=== PATIENT | female | born 1985 | race Caucasian/White ===

== ENCOUNTER 2016-07-25 12:44 | Inpatient (IN) | payer OTHER ==
[~2016-07-25] VITALS: Ht 162.6 cm; Wt 53.0 kg
[~2016-07-25 12:44] MED LIST: PHENYLEPH/NS 1000 MCG/10 ML SYR IV ONE; PROPOFOL 200 MG/20 ML AMP IV ONE
[2016-07-25] MEDS ORDERED: SODIUM CHLOR 0.9% 1000 ML INJ 1,000 ML IV ONE ×7 (13:15→19:00)
[2016-07-25] MEDS ORDERED: SODIUM CHLORIDE 0.9% FLUSH 5 ML FLUSH IVF PRN (13:15)
[2016-07-25 13:21] VITALS: BP 104/57; PULSE 130; RESP 20; TEMP 97.8; O2SAT 98
[2016-07-25 13:42] LABS: AUTOMATED NEUTROPHIL # 17.2 TH/MM3 (1.8-7.7); BASOPHIL % 0.2 % (0.0-2.0); HEMATOCRIT 52.3 % (35.0-46.0); HEMO FLAGS DIFF FINAL; LYMPH % 2.2 % (9.0-44.0); LYMPHOCYTE # 0.4 TH/MM3 (1.0-4.8); MEAN CELL VOLUME 108.6 FL (80.0-100.0); MEAN CORPUSCULAR HEMOGLOBIN 36.1 PG (27.0-34.0); MEAN CORPUSCULAR HGB CONC 33.2 % (32.0-36.0); MONO % 5.2 % (0.0-8.0); NEUT % 92.4 % (16.0-70.0); PLATELET COUNT 231 TH/MM3 (150-450); RED BLOOD COUNT 4.81 MIL/MM3 (4.00-5.30); RED CELL DISTRIBUTION WIDTH 13.2 % (11.6-17.2); WHITE BLOOD COUNT 18.7 TH/MM3 (4.0-11.0)
--- NOTE | 2016-07-25 13:56 | PD ---
HPI Chief Complaint: Alcohol/Drug Intoxication Time Seen by Provider: 12:57 Travel History International Travel<30 days: No Contact w/Intl Traveler<30days: No Traveled to known affect area: No History of Present Illness HPI Patient is a 30-year-old female brought to the emergency room by police for evaluation. As per police officers, patient was found in bed with her boyfriend who apparently overdosed on drugs last night. Patient does not have recollections of events that occurred last night or this morning. Reports that she feels numb to the right side of her body and is having difficulty with movement to the right of her body. Patient reports that "I just feel out of it. " Patient denies headache or dizziness. Patient denies chest pain or shortness of breath. Patient denies SI or HI. Patient admits to abusing cocaine last night - reports that "i snort my drugs" - denies IVDA. "I hate needles" PFSH Past Medical History Medical History: Denies Significant Hx ?: Not : 0 Past Surgical History Surgical History: No Previous Surgery Social History Alcohol Use: Yes (DAILY) Tobacco Use: Yes (PACK) Substance Use: Yes (MARIJUANA) Allergies-Medications (Allergen,Severity, Reaction): Coded Allergies: No Known Allergies (Unverified , 12/10/14) Reported Meds & Prescriptions Reported Meds & Active Scripts Active No Active Prescriptions or Reported Medications Review of Systems General / Constitutional: No: Fever Eyes: No: Visual changes HENT: No: Headaches Cardiovascular: Positive: Palpitations, Irregular Rhythm, Tachycardia, No: Chest Pain or Discomfort Respiratory: No: Shortness of Breath Gastrointestinal: No: Abdominal Pain Genitourinary: No: Dysuria Musculoskeletal: No: Pain Skin: No Rash Neurologic: Positive: Weakness Psychiatric: No: Depression Endocrine: No: Polydipsia Hematologic/Lymphatic: No: Easy Bruising Physical Exam Narrative GENERAL: pt with dry affect SKIN: Warm and dry. HEAD: Atraumatic. Normocephalic. EYES: Pupils equal and round. No scleral icterus. No injection or drainage. ENT: No nasal bleeding or discharge. Mucous membranes pink and moist. NECK: Trachea midline. No JVD. CARDIOVASCULAR: tachycardic. No murmur appreciated. RESPIRATORY: No accessory muscle use. Clear to auscultation. Breath sounds equal bilaterally. GASTROINTESTINAL: Abdomen soft, non-tender, nondistended. Hepatic and splenic margins not palpable. MUSCULOSKELETAL: No obvious deformities. No clubbing. No cyanosis. No edema. NEUROLOGICAL: Awake and alert. Motor grossly within normal limits. Normal speech. Pt with increased weakness to right arm/leg PSYCHIATRIC: Flat affect Data Data Last Documented VS Orders Complete Blood Count With Diff (07/25/16 13:04) Comprehensive Metabolic Panel (07/25/16 13:04) Urinalysis - C+S If Indicated (07/25/16 13:04) Drug Screen, Random Urine (07/25/16 13:04) Ed Urine Pregnancytest Poc (07/25/16 13:04) Electrocardiogram (07/25/16 13:04) Iv Access Insert/Monitor (07/25/16 13:04) Alcohol (Ethanol) (07/25/16 13:04) Salicylates (Aspirin) (07/25/16 13:04) Tylenol (Acetaminophen) (07/25/16 13:04) Psych Screen (07/25/16 13:04) Sodium Chloride 0.9% Flush (Ns Flush) (07/25/16 13:15) Sodium Chlor 0.9% 1000 Ml Inj (Ns 1000 M (07/25/16 13:15) Ckmb (Isoenzyme) Profile (07/25/16 13:37) Troponin I (07/25/16 13:37) Ct Brain W/O Iv Contrast(Rout) (07/25/16 ) Consult Cardiology (07/25/16 ) Lactic Acid Sepsis Protocol (07/25/16 14:11) Blood Culture (07/25/16 14:11) Chest, Single Ap (07/25/16 14:13) (Hub Use Only)Inp Phy Cons/Ref (07/25/16 ) Vancomycin Inj (Vancomycin Inj) (07/25/16 14:30) Piperacil-Tazo 3.375 Gm Premix (Zosyn 3. (07/25/16 14:30) Calcium Gluconate Inj (Calcium Gluconate (07/25/16 14:30) Insulin Human Regular Inj (Novolin R Inj (07/25/16 14:45) Dextrose 50% In Kirstie (Vial) Inj (D50w (Vi (07/25/16 14:30) Sodium Bicarbonate 8.4% Inj (Sodium Bica (07/25/16 14:30) Sodium Polysty Sulfate Liq (Kayexalate L (07/25/16 14:30) Urinary Catheter Insert/Apply (07/25/16 14:26) Sodium Bicarbonate 8.4% Inj (Sodium Bica (07/25/16 14:45) Electrocardiogram (07/25/16 ) Arterial Blood Gas (Abg) (07/25/16 ) Prothrombin Time / Inr (Pt) (07/25/16 15:16) Act Partial Throm Time (Ptt) (07/25/16 15:16) Acetylcysteine Inj (Acetadote Inj) (07/25/16 15:30) Acetylcysteine Inj (Acetadote Inj) (07/25/16 15:30) Acetylcysteine Inj (Acetadote Inj) (07/25/16 15:30) Calcium Gluconate Inj (Calcium Gluconate (07/25/16 15:45) Admit Order (Ed Use Only) (07/25/16 15:36) CKMB (07/25/16 13:30) CKMB% (07/25/16 13:30) Labs Laboratory Tests Test 07/25/16 13:30 White Blood Count 18.7 TH/MM3 Red Blood Count 4.81 MIL/MM3 Hemoglobin 17.4 GM/DL Hematocrit 52.3 % Mean Corpuscular Volume 108.6 FL Mean Corpuscular Hemoglobin 36.1 PG Mean Corpuscular Hemoglobin 33.2 % Concent Red Cell Distribution Width 13.2 % Platelet Count 231 TH/MM3 Mean Platelet Volume 8.1 FL Neutrophils (%) (Auto) 92.4 % Lymphocytes (%) (Auto) 2.2 % Monocytes (%) (Auto) 5.2 % Eosinophils (%) (Auto) 0.0 % Basophils (%) (Auto) 0.2 % Neutrophils # (Auto) 17.2 TH/MM3 Lymphocytes # (Auto) 0.4 TH/MM3 Monocytes # (Auto) 1.0 TH/MM3 Eosinophils # (Auto) 0.0 TH/MM3 Basophils # (Auto) 0.0 TH/MM3 CBC Comment DIFF FINAL Differential Comment MDM Medical Decision Making Medical Screen Exam Complete: Yes Emergency Medical Condition: Yes Interpretation(s) ekg: sinus tach at 122bpm, qt/qtc: 335/407, st seg elevation in V1 and V2 - Brugada syndrome? repeat ek; sinus tach at 127bpm, qt/qtc: 335/410, st seg elevation V1-V2 - Brugada syndrome? Vital Signs Date Time Temp Pulse Resp B/P Pulse Ox O2 Delivery O2 Flow Rate FiO2 07/25/16 13:26 130 20 98 Room Air 07/25/16 13:21 97.8 130 20 104/57 98 Laboratory Tests Test 07/25/16 13:30 White Blood Count 18.7 TH/MM3 (4.0-11.0) Red Blood Count 4.81 MIL/MM3 (4.00-5.30) Hemoglobin 17.4 GM/DL (11.6-15.3) Hematocrit 52.3 % (35.0-46.0) Mean Corpuscular Volume 108.6 FL (80.0-100.0) Mean Corpuscular Hemoglobin 36.1 PG (27.0-34.0) Mean Corpuscular Hemoglobin 33.2 % Concent (32.0-36.0) Red Cell Distribution Width 13.2 % (11.6-17.2) Platelet Count 231 TH/MM3 (150-450) Mean Platelet Volume 8.1 FL (7.0-11.0) Neutrophils (%) (Auto) 92.4 % (16.0-70.0) Lymphocytes (%) (Auto) 2.2 % (9.0-44.0) Monocytes (%) (Auto) 5.2 % (0.0-8.0) Eosinophils (%) (Auto) 0.0 % (0.0-4.0) Basophils (%) (Auto) 0.2 % (0.0-2.0) Neutrophils # (Auto) 17.2 TH/MM3 (1.8-7.7) Lymphocytes # (Auto) 0.4 TH/MM3 (1.0-4.8) Monocytes # (Auto) 1.0 TH/MM3 (0-0.9) Eosinophils # (Auto) 0.0 TH/MM3 (0-0.4) Basophils # (Auto) 0.0 TH/MM3 (0-0.2) CBC Comment DIFF FINAL Differential Comment Salicylates Level LESS THAN 1.7 MG/DL (2.8-20.0) Differential Diagnosis ACS versus Brugada syndrome versus drug overdose versus ICH versus SI Narrative Course 30 year old female who was brought to ER for medical clearance. pt was found in bed with her boyfriend this morning who overdosed on drugs and while in bed next to her. pt reports of numbness to right side of body. reports that she did snort some cocaine last night but doesn't remember what happened last night or this morning. pt with no chest pain/sob. Pt with flat affect, denies si/hi Reviewed case with Dr. Guzman with cardiology for concern for brugada syndrome - request serial ce Patient with 18,000 white count, patient initially hypotensive upon presentation to ER, patient responded well to IV fluids. Patient still tachycardic - patient with SIRS criteria. Patient will be acuna cultured and lactate ordered CBC WBC 18.7 Hemoglobin 17.4 Hematocrit 52.3 Platelets 231 BMP Sodium 140 Potassium 6.2 BUN 17 Creatinine 2.97 Carbon dioxide 11.2 Anion gap 21.8 Calcium: 6.6 Ast: 6641 ALT: 1419 Alk phos: 177 Patient with tranaminitis - possible acetaminophen overdose thought patient adamantly denies this, patient adamantly denies toxic ingestions, will start NAC as pt may have had possible acetinophen overdose Given patient's elevated white count with shift, hypertension when she first arrived to emergency room and tachycardia - patient was treated for sepsis with vancomycin and zosyn and has been pancultured CT of the head obtained to evaluate for further symptoms of numbness sensation to right side of body: CT of the head was negative Patient's creatinine elevated at 2.97 -- Sinclair catheter ordered for close I's and O's, pt given fluid bolus EKG also with st seg elevation in V1-V2 - most likely brugada syndrome, ce pending all this was reviewed with dr choi with icu who accepts pt to icu I received a call from lab as patient troponin is 6.24, I did call Dr. Choi, ICU attending, request that I notify Dr. Guzman and consider STEMI Call made to Dr Guzman, reviewed case again - would like pt to be treated medically at this time, he will see patient in consult Critical Care Narrative Aggregate critical care time was 60 minutes. Time to perform other separately billable procedures was not included in the critical care time. My time did not include minutes spent treating any other patients simultaneously or on activities that did not directly contribute to the patient's treatment. The services I provided to this patient were to treat and/or prevent clinically significant deterioration that could result in: , decompensation, deterioration I provided critical care services requiring my management, as noted below: Chart data review, documentation time, medication orders and management, vital sign assessments/reviewing monitor data, ordering and reviewing lab tests, ordering and interpreting/reviewing x-rays and diagnostic studies, care of the patient and discussion of the patient with the admitting physicians. Procedures EKG Prior to Arrival: No Sepsis Criteria SIRS Criteria (2 or more): Heart rate over 90, RR > 20 or PaCO2 < 32, WBC > 17361, < 4000 or > 10% bands Severe Sepsis (+one): Hypotension, Hypoperfusion, Lactate >2, Acute Oliguria/ Renal Failure Septic Shock Criteria: Lactic acid >=4 Multiple Organ Dysfunction Syn: Evidence -2 organs failing Criteria Outcome: Meets sepsis criteria Physician Communication Physician Communication case reviewed with dr guzman, request that CE be trended case reviewed with dr choi who accepts pt to service, pt seen in ER by Dr Choi, request ct of abd/pelvis without contrast and another bolus of ivf and xray of hip Diagnosis Primary Impression: Drug overdose Qualified Code: T50.904A - Drug overdose, undetermined intent, initial encounter Additional Impressions: Brugada syndrome Hypocalcemia SIRS (systemic inflammatory response syndrome) Hyperkalemia Transaminitis Renal failure possible acetaminophen overdose Acute urinary retention Admitting Information Admitting Physician Requests: Admit Scripts No Active Prescriptions or Reported Meds Nimco Jean Baptiste DO Jul 25, 2016 13:56 CBC WBC 18.7 Hemoglobin 17.4 Hematocrit 52.3 Platelets 231 BMP Sodium 140 Potassium 6.2 BUN 17 Creatinine 2.97 Carbon dioxide 11.2 Anion gap 21.8 Calcium: 6.6 Ast: 6641 ALT: 1419 Alk phos: 177 Patient with tranaminitis - possible acetaminophen overdose thought patient adamantly denies this, patient adamantly denies toxic ingestions, will start NAC as pt may have had possible acetinophen overdose Given patient's elevated white count with shift, hypertension when she first arrived to emergency room and tachycardia - patient was treated for sepsis with vancomycin and zosyn and has been pancultured CT of the head obtained to evaluate for further symptoms of numbness sensation to right side of body: CT of the head was negative Patient's creatinine elevated at 2.97 -- Sinclair catheter ordered for close I's and O's, pt given fluid bolus EKG also with st seg elevation in V1-V2 - most likely brugada syndrome, ce pending all this was reviewed with dr choi with icu who accepts pt to icu I received a call from lab as patient troponin is 6.24, I did call Dr. Choi, ICU attending, request that I notify Dr. Guzman and consider STEMI Call made to Dr Guzman, reviewed case again - would like pt to be treated medically at this time, he will see patient in consult Critical Care Narrative Aggregate critical care time was 60 minutes. Time to perform other separately billable procedures was not included in the critical care time. My time did not include minutes spent treating any other patients simultaneously or on activities that did not directly contribute to the patient's treatment. The services I provided to this patient were to treat and/or prevent clinically significant deterioration that could result in: , decompensation, deterioration I provided critical care services requiring my management, as noted below: Chart data review, documentation time, medication orders and management, vital sign assessments/reviewing monitor data, ordering and reviewing lab tests, ordering and interpreting/reviewing x-rays and diagnostic studies, care of the patient and discussion of the patient with the admitting physicians. Procedures EKG Prior to Arrival: No Sepsis Criteria SIRS Criteria (2 or more): Heart rate over 90, RR > 20 or PaCO2 < 32, WBC > 55470, < 4000 or > 10% bands Severe Sepsis (+one): Hypotension, Hypoperfusion, Lactate >2, Acute Oliguria/ Renal Failure Septic Shock Criteria: Lactic acid >=4 Multiple Organ Dysfunction Syn: Evidence -2 organs failing Criteria Outcome: Meets sepsis criteria Physician Communication Physician Communication case reviewed with dr guzman, request that CE be trended case reviewed with dr choi who accepts pt to service, pt seen in ER by Dr Choi, request ct of abd/pelvis without contrast and another bolus of ivf and xray of hip Diagnosis Primary Impression: Drug overdose Qualified Code: T50.904A - Drug overdose, undetermined intent, initial encounter Additional Impressions: Brugada syndrome Hypocalcemia SIRS (systemic inflammatory response syndrome) Hyperkalemia Transaminitis Renal failure possible acetaminophen overdose Acute urinary retention Admitting Information Admitting Physician Requests: Admit Scripts No Active Prescriptions or Reported Meds Nimco Jean Baptiste DO Jul 25, 2016 13:56
[2016-07-25 14:09] LABS: ALKALINE PHOSPHATASE 177 U/L (45-117); ALT (GPT) 1319 U/L (10-53); ANION GAP 28 MEQ/L (5-15); BICARBONATE 11.2 MEQ/L (21.0-32.0); BLOOD UREA NITROGEN 17 MG/DL (7-18); CHLORIDE 101 MEQ/L (98-107); GLOMERULAR FILTRATION RATE 19 ML/MIN (>89); SODIUM (NA) 140 MEQ/L (136-145); TOTAL BILIRUBIN ADULT 0.9 MG/DL (0.2-1.0)
[2016-07-25 14:20] LABS: AST (GOT) 6641 U/L (15-37); POTASSIUM 6.2 MEQ/L (3.5-5.1)
[2016-07-25 14:21] LABS: ACETAMINOPHEN LESS THAN 2.0 MCG/ML (10.0-30.0)
[2016-07-25 14:22] LABS: CALCIUM-PROTEIN CORRECTED 6.6 MG/DL (8.5-10.1)
[2016-07-25] MEDS ORDERED: DEXTROSE 50% IN WATER 50 ML VIAL(D50) IV PUSH ONE (14:30)
[2016-07-25] MEDS ORDERED: SODIUM POLYSTYRENE SULFONATE SUSP 15 GM/60 ML CUP PO ONE (14:30)
[2016-07-25] MEDS ORDERED: VANCOMYCIN INJ 900 MG in SODIUM CHLOR 0.9% 250 ML INJ 250 ML IV ONE (14:30)
[2016-07-25] MEDS ORDERED: PIPERACIL-TAZO 3.375 GM PREMIX 50 ML IV ONE (14:30)
[2016-07-25] MEDS ORDERED: CALCIUM GLUCONATE 10% 1 GM/10 ML VIAL SLOW IVP ONE ×2 (14:30→15:45)
[2016-07-25] MEDS ORDERED: SODIUM BICARBONATE 8.4% SOLN 50 MEQ/50 ML VIAL SLOW IVP ONE ×2 (14:30→14:45)
[2016-07-25] MEDS ORDERED: INSULIN HUMAN REGULAR 1,000 UNITS/10 ML VIAL IV PUSH ONE (14:45)
--- NOTE | 2016-07-25 14:58 | RADRPT ---
EXAM DATE/TIME: 07/25/2016 14:38 [facility] COMPARISON: No previous studies available for comparison. INDICATIONS : Right sided upper and lower extremity numbness today. RADIATION DOSE: 56.35 CTDIvol (mGy) MEDICAL HISTORY : None SURGICAL HISTORY : None. ENCOUNTER: Initial ACUITY: 1 day PAIN SCALE: 0/10 LOCATION: cranial TECHNIQUE: Multiple contiguous axial images were obtained of the head. Using automated exposure control and adj ustment of the mA and/or kV according to patient size, radiation dose was kept as low as reasonably a chievable to obtain optimal diagnostic quality images. FINDINGS: CEREBRUM: The ventricles are normal for age. No evidence of midline shift, mass lesion, hemorrhage or acute in farction. No extra-axial fluid collections are seen. POSTERIOR FOSSA: The cerebellum and brainstem are intact. The 4th ventricle is midline. The cerebellopontine angle i s unremarkable. EXTRACRANIAL: The visualized portion of the orbits is intact. SKULL: The calvaria is intact. No evidence of skull fracture. CONCLUSION: Negative noncontrast head CT. Glenroy Sheffield MD on July 25, 2016 at 14:56 Board Certified Radiologist. This report was verified electronically.
--- NOTE | 2016-07-25 15:02 | RADRPT ---
EXAM DATE/TIME: 07/25/2016 14:22 [facility] COMPARISON: No previous studies available for comparison. INDICATIONS : Chest pain. MEDICAL HISTORY : None. SURGICAL HISTORY : None. ENCOUNTER: Initial ACUITY: 1 day PAIN SCORE: 7/10 LOCATION: Bilateral chest FINDINGS: Single AP view of the chest. The lungs are clear. Cardiomediastinal silhouette within normal limits. No evidence of pleural effusion or pneumothorax. CONCLUSION: No acute cardiopulmonary disease identified. Bobby Reid MD on July 25, 2016 at 15:01 Board Certified Radiologist. This report was verified electronically.
[2016-07-25 15:22] LABS: BLOOD GAS BASE EXCESS -16.6 mmol/L (-2-2); BLOOD GAS CARBOXYHEMOGLOBIN 2.3 % (0-4); BLOOD GAS HCO3 11 mmol/L (22-26); BLOOD GAS METHEMOGLOBIN 1.8 % (0-2); BLOOD GAS O2 HGB SATURATION 91 % (90-100); BLOOD GAS OXYGEN CONTENT 20.3 Vol % (12.0-20.0); BLOOD GAS PCO2 33 mmHg (38-42); BLOOD GAS PO2 90 mmHG (61-120); BLOOD GAS TOTAL HGB 15.8 G/DL (12.0-16.0); CRITICAL VALUE YES; FIO2 21 %; OXYGEN DEVICE ROOM AIR; TEMP CORR TO 98.6
[2016-07-25 15:23] LABS: DRAW SITE RT RADIAL; NUMBER OF ARTERIAL PUNCTURES 1; STAT YES; ULNAR PULSE PRESENT
[2016-07-25] MEDS ORDERED: ACETYLCYSTEINE IV ONE ×6 (15:30)
[2016-07-25] MEDS ORDERED: DEXTROSE 5% IV ONE ×6 (15:30)
[2016-07-25] MEDS ORDERED: WATER IV ONE ×2 (15:30)
[2016-07-25] MEDS ORDERED: WATE IV ONE ×4 (15:30)
[2016-07-25] MEDS ORDERED: SODIUM CHLOR 0.9% 1000 ML INJ 1,000 ML IV SCH (16:05)
[2016-07-25 16:11] VITALS: BP 141/90; PULSE 122; RESP 18; O2SAT 100
[2016-07-25] MEDS ORDERED: CHLORHEXIDINE GLUCONATE 2 % 1 PACK (2 CLOTHS) TOP PRN (16:15)
[2016-07-25] MEDS ORDERED: MISCELLANEOUS NURSING INFORMATION XX SCH (16:15)
[2016-07-25] MEDS ORDERED: Vancomycin Consult Pharmacy 1 EA OTHER SCH (16:15)
[2016-07-25] MEDS ORDERED: RESP: ALBUTEROL 2.5 MG/IPRATROPIUM 0.5 MG NEB (PRN) INH (16:15)
[2016-07-25 16:16] LABS: APTT (PATIENT) 25.2 SEC (24.3-30.1); INTERNATIONAL NORMALIZED RATIO 1.4 RATIO; PROTHROMBIN TIME - PATIENT 15.4 SEC (9.8-11.6)
[2016-07-25 16:43] LABS: BACTERIA, URINE FEW /hpf; BLOOD, URINE MOD (NEG); GLUCOSE,URINE NEG (NEG); KETONE, URINE TRACE mg/dL (NEG); MUCUS URINE FEW /lpf (OCC); NITRITE,URINE NEG (NEG); SQUAMOUS EPITHELIAL CELL URINE 1 /hpf (0-5); URINE COLOR LIGHT-RED (YELLW/STRAW)
[2016-07-25 16:44] LABS: COMMENT (UR) CULTURE INDICATED; CULTURE IF INDICATED CULTURE INDICATED
[2016-07-25 16:48] LABS: AMPHETAMINE, URINE NEG (NEG); BARBITURATES, URINE NEG (NEG); COCAINE, URINE NEG (NEG)
[2016-07-25 16:54] LABS: LACTIC ACID GHOST NOT REPORTABLE
[2016-07-25 17:00] VITALS: BP 157/95; PULSE 123; RESP 25; TEMP 97.8
[2016-07-25] MEDS ORDERED: ENOXAPARIN SODIUM 30 MG/0.3 ML SYRINGE SQ SCH (17:00)
--- NOTE | 2016-07-25 17:09 | HHI.HP ---
[facility] Service Critical Care Medicine Primary Care Physician No Primary Care Physician Admission Diagnosis Sepsis, possible acetaminophen overdose, tranaminitis, renal failure Diagnosis: (1) Compartment syndrome of right lower extremity Diagnosis: Principal (2) Rhabdomyolysis Diagnosis: Principal (3) Severe sepsis Diagnosis: Principal (4) Altered mental status Diagnosis: Principal (5) Drug overdose Diagnosis: Principal (6) Elevated troponin Diagnosis: Principal (7) Severe metabolic acidosis Diagnosis: Principal (8) Lactic acidosis Diagnosis: Principal (9) Transaminitis Diagnosis: Principal (10) Hypocalcemia Diagnosis: Principal (11) Hyperkalemia Diagnosis: Principal (12) ST elevation Diagnosis: Principal (13) Acute kidney failure Diagnosis: Principal (14) Leukocytosis Diagnosis: Principal (15) Small right middle lobe consolidation Diagnosis: Principal (16) Hip hematoma, right Diagnosis: Principal Chief Complaint: Altered mentation Drug overdose Travel History International Travel<30 Days: No Contact w/Intl Traveler <30 Da: No Traveled to Known Affected Are: No Sepsis Criteria SIRS Criteria (2 or more): Heart rate over 90, RR > 20 or PaCO2 < 32, WBC > 63162, < 4000 or > 10% bands Sepsis Criteria (SIRS+source): Infect source susp/known Severe Sepsis (+one): Lactate >2 Septic Shock Criteria: Lactic acid >=4 Criteria Outcome: Meets severe sepsis criteria History of Present Illness Patient is a 30-year-old female who was brought to the emergency department by the police for medical clearance. Apparently patient was found in bed with her boyfriend this morning who overdosed on drugs. Patient's boyfriend was was found on the bed. In the ER patient reported numbness to the right side of the body and she admits to snorting some cocaine last night. Patient does not recall any of the events overnight or how she got to the hospital. Her drug screen was essentially negative but she admits to cocaine and heroine use. Patient is a very poor historian. EKG shows probable ST elevation V1 and V2 questionable Brugada syndrome. Initially was hypotensive but responded well to IV fluids. Received total 3 L of fluids but remained tachycardic. There were multiple lab abnormalities. Her CBC showed WBC 18.7 with 92% neutrophils. Her chemistry showed potassium of 6.2, BUN of 17 creatinine 2.97, bicarbonate was only 11.2 with an anion gap of 22. Liver enzymes are markedly elevated AST was 6641 ALT was 1419. Patient was hypocalcemic with 6.6 calcium. Lactate came back very elevated at 9.1. Tylenol level was negative. I believe transaminitis is from shocked liver from hypotension-patient denies hepatitis C. CT of the head was negative I evaluated the patient in the ED. She looks critically ill but did not appear to be in distress at this time. Patient denies chest pain. Her troponin came back at 6.24, CPK pending. 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 Carter rfid manager.. CK is highly elevated indicating rhabdomyolysis. Dr. Carter does not think this meets criteria for STEMI as the patient is asymptomatic. I did a bedside echo which showed normal ejection fraction no vegetation on the valve on my evaluation. Patient's right thigh is swollen and tense with severe tenderness, distal pulses are palpable but she appears to have compartment syndrome of right thigh. I spoke with Dr. Balderas who will evaluate the patient stat for fasciotomy. Continue IV hydration with bicarb infusion Review of Systems ROS Limitations: Poor Historian Past Family Social History Allergies: Coded Allergies: No Known Allergies (Unverified , 12/10/14) Past Medical History Polysubstance abuse including heroine and cocaine Past Surgical History Unknown Reported Medications Do not take any regular medications Active Ordered Medications Reviewed Family History Unable to get reliable history Social History Polysubstance abuse including cocaine heroine and marijuana Posterior history of daily cigarette and alcohol use Physical Exam Vital Signs Vital Signs Date Time Temp Pulse Resp B/P Pulse Ox O2 Delivery O2 Flow Rate FiO2 07/25/16 16:11 122 18 141/90 100 Nasal Cannula 2 07/25/16 13:26 130 20 98 Room Air 07/25/16 13:21 97.8 130 20 104/57 98 Physical Exam GENERAL: Lying on ER [place]. Appears critically ill but no specific complaints SKIN: Warm and dry. HEAD: Atraumatic. Normocephalic. EYES: Pupils equal and round. No scleral icterus. No injection or drainage. ENT: No nasal bleeding or discharge. Mucous membranes dry NECK: Trachea midline. No JVD. CARDIOVASCULAR: tachycardic. No murmur appreciated. Bedside echo shows normal ejection fraction no vegetations on my evaluation RESPIRATORY: No accessory muscle use. Clear to auscultation. Breath sounds equal bilaterally. GASTROINTESTINAL: Abdomen soft, non-tender, nondistended. Hepatomegaly. Abrasions on the abdominal wall MUSCULOSKELETAL: Right thigh is swollen and tense with severe tenderness. Right hip tender with restricted mobility. NEUROLOGICAL: Awake and alert. Motor grossly within normal limits. Normal speech. Weakness to right leg most likely secondary to pain Laboratory Laboratory Tests Test 07/25/16 07/25/16 07/25/16 07/25/16 13:30 14:25 15:19 15:36 White Blood Count 18.7 Red Blood Count 4.81 Hemoglobin 17.4 Hematocrit 52.3 Mean Corpuscular Volume 108.6 Mean Corpuscular Hemoglobin 36.1 Mean Corpuscular Hemoglobin 33.2 Concent Red Cell Distribution Width 13.2 Platelet Count 231 Mean Platelet Volume 8.1 Neutrophils (%) (Auto) 92.4 Lymphocytes (%) (Auto) 2.2 Monocytes (%) (Auto) 5.2 Eosinophils (%) (Auto) 0.0 Basophils (%) (Auto) 0.2 Neutrophils # (Auto) 17.2 Lymphocytes # (Auto) 0.4 Monocytes # (Auto) 1.0 Eosinophils # (Auto) 0.0 Basophils # (Auto) 0.0 CBC Comment DIFF FINAL Differential Comment Sodium Level 140 Potassium Level 6.2 Chloride Level 101 Carbon Dioxide Level 11.2 Anion Gap 28 Blood Urea Nitrogen 17 Creatinine 2.97 Estimat Glomerular Filtration 19 Rate Random Glucose 59 Calcium Level 6.6 Protein Corrected Calcium 6.6 Total Bilirubin 0.9 Aspartate Amino Transf 6641 (AST/SGOT) Alanine Aminotransferase 1319 (ALT/SGPT) Alkaline Phosphatase 177 Troponin I 6.24 Total Protein 7.2 Albumin 3.7 Salicylates Level LESS THAN 1.7 Acetaminophen Level LESS THAN 2.0 Ethyl Alcohol Level 28 Lactic Acid Level 9.1 Blood Gas Puncture Site RT RADIAL Blood Gas Patient Temperature 98.6 Blood Gas HCO3 11 Blood Gas Base Excess -16.6 Blood Gas Oxygen Saturation 91 Arterial Blood pH 7.14 Arterial Blood Partial 33 Pressure CO2 Arterial Blood Partial 90 Pressure O2 Arterial Blood Oxygen Content 20.3 Arterial Blood 2.3 Carboxyhemoglobin Arterial Blood Methemoglobin 1.8 Blood Gas Hemoglobin 15.8 Oxygen Delivery Device ROOM AIR Blood Gas Inspired Oxygen 21 Prothrombin Time 15.4 Prothromb Time International 1.4 Ratio Activated Partial 25.2 Thromboplast Time Test 07/25/16 16:10 Urine Color LIGHT-RED Urine Turbidity HAZY Urine pH 6.0 Urine Specific [place] 1.006 Urine Protein 100 Urine Glucose (UA) NEG Urine Ketones TRACE Urine Occult Blood MOD Urine Nitrite NEG Urine Bilirubin NEG Urine Urobilinogen LESS THAN 2.0 Urine Leukocyte Esterase SMALL Urine RBC 2 Urine WBC 12 Urine Squamous Epithelial 1 Cells Urine Amorphous Sediment RARE Urine Bacteria FEW Urine Mucus FEW Microscopic Urinalysis Comment CULTURE INDICATED Urine Opiates Screen NEG Urine Barbiturates Screen NEG Urine Amphetamines Screen NEG Urine Benzodiazepines Screen NEG Urine Cocaine Screen NEG Urine Cannabinoids Screen NEG Date/Time Procedure Status Source Growth 07/25/16 16:10 Urine Culture Received Urine Random Urine Pending 07/25/16 14:25 Aerobic Blood Culture Received Blood Peripheral Pending 07/25/16 14:25 Anaerobic Blood Culture Received Blood Peripheral Pending Result Diagram: 07/25/16 1330 07/25/16 1330 Imaging Reviewed Septic Shock Reassessment Heart: Other (tachycardic) Lungs: Clear Skin: Warm, Dry Peripheral Pulses: Weak Right Radial Weak Left Radial Capillary Refill: Brisk Assessment and Plan Assessment and Plan NEURO: Altered mental status Polysubstance abuse with drug overdose Right upper extremity numbness -Watch for alcohol and drug withdrawal, Use PRN Ativan -Complains of mild numbness of right upper extremity, CT of the head is negative -MRI of the brain once clinically more stable, if needed -Started on aspirin for elevated troponin. -Neurology consult as indicated RESP: Respiratory insufficiency Severe metabolic acidosis Small consolidation right middle lobe -Nasal cannula oxygen -DuoNeb every 6 hours when necessary -See ID section for broad-spectrum antibiotics CV: Elevated troponin Severe lactic acidosis ST elevation in V1 and V2 -Normal saline IV fluids 5 L bolus and maintenance fluid with bicarbonate infusion at 250 ML per hour -Discussed extensively with Dr. Carter, does not meet criteria for STEMI -Continue aspirin, will not use beta blockers due to cocaine abuse -2d echo, cycle troponin and CPK. Bedside cardiac ultrasound shows normal ejection fraction and no wall motion abnormalities on my limited exam MSK: R thigh compartment syndrome -Patient's right thigh is swollen and tense with severe tenderness, CT of the right thigh pending -Dr. Delaney landry evaluate STAT for probable fasciotomy -CPK >[id number] GI: Elevated liver enzymes -Transaminitis most likely secondary to shock -CT of the abdomen and pelvis shows fatty liver -Check hepatitis panel -Keep nothing by mouth IV Protonix /Renal: Acute kidney failure Hyperkalemia Acute rhabdomyolysis Severe anion gap metabolic acidosis -Continue aggressive fluid resuscitation with 4 L normal saline and maintenance fluid at D5 W with 2 A of bicarbonate at 150 ML per hour -Check renal ultrasound if renal function not steadily improving, strict intake output. Hold off nephrology consult at this time -Received calcium gluconate, bicarbonate, Kayexalate and insulin IV followed by D50 for hyperkalemia -Repeat CMP ID: Severe sepsis -Source unclear at this time follow up on blood and urine culture -Continue vancomycin and Zosyn -Infectious disease consult. Small consolidation in the right middle lobe unlikely to be source of severe sepsis -Rule out infective endocarditis HEME: Macrocytosis -Monitor CBC, CMP, coags -Check B12 ENDO: -Monitor electrolytes closely PROPH: -Bilateral lower extremity SCDs. Lovenox 30 mg daily LINES: -Utilize peripheral IVs, central line if needed CC time 120 min Code Status Full Discussed Condition With Dr. Carter. Dr. Jean Baptiste, Dr. Balderas Problem Qualifiers (1) Drug overdose: Qualified Code: T50.904A - Drug overdose, undetermined intent, initial encounter (2) Acute kidney failure: Qualified Code: N17.9 - Acute renal failure, unspecified acute renal failure type (3) Leukocytosis: Qualified Code: D72.829 - Leukocytosis, unspecified type Nick Tim MD Jul 25, 2016 17:09
--- NOTE | 2016-07-25 17:11 | RADRPT ---
EXAM DATE/TIME: 07/25/2016 16:37 CORRECTION Corrected on: July 25, 2016; [facility] COMPARISON: No previous studies available for comparison. INDICATIONS : Nausea and vomiting today. ORAL CONTRAST: No oral contrast ingested. RADIATION DOSE: 9.96 CTDIvol (mGy) ; Combined studies MEDICAL HISTORY : None SURGICAL HISTORY : None. ENCOUNTER: Initial ACUITY: 1 day PAIN SCALE: 4/10 LOCATION: Bilateral lower quadrant abdomen TECHNIQUE: Volumetric scanning of the abdomen and pelvis was performed. Using automated exposure control and ad justment of the mA and/or kV according to patient size, radiation dose was kept as low as reasonably achievable to obtain optimal diagnostic quality images. FINDINGS: LOWER LUNGS: The visualized lower lungs are clear. LIVER: Liver is fatty infiltrated and mildly enlarged. No focal hepatic lesions seen on these noncontrast im ages. No biliary distention. Probable sludge in the gallbladder. No discrete stone seen. SPLEEN: Normal size without lesion. PANCREAS: Within normal limits. KIDNEYS: Normal in size and shape. There is no mass, stone, or hydronephrosis. ADRENAL GLANDS: Within normal limits. VASCULAR: There is no aortic aneurysm. BOWEL/MESENTERY: The stomach, small bowel, and colon demonstrate no acute abnormality. There is no free intraperitone al air or fluid. ABDOMINAL WALL: Within normal limits. RETROPERITONEUM: There is no lymphadenopathy. BLADDER: No wall thickening or mass. REPRODUCTIVE: 21 mm right ovarian cyst. INGUINAL: There is no lymphadenopathy or hernia. MUSCULOSKELETAL: The swelling and heterogeneous in attenuation seen of right hip girdle muscles, most conspicuous of t he gluteus medius and minimus, rectus femoris and proximal vastus lateralis as well as the adductor m uscles. There is mild edema in the adjacent subcutaneous fat. No well-defined mass or fluid collectio n seen. I also don't see an associated fracture in this area. The patient has chronic L5 pars defects with grade 2 spondylolisthesis at L5/S1. CONCLUSION: 1. Fatty liver and 21 mm right ovarian cyst. Otherwise, no acute abnormality seen within the abdomen or pelvis. 2. Swollen, heterogeneous right hip musculature, primarily gluteus medius and minimus, rectus femoris and vastus lateralis and the adductor muscles. This is nonspecific but suggests a subacute hematoma of these structures. Nothing organized/measurable. 3. Chronic L5 pars defects with grade 2 L5/S1 spondylolisthesis. Glenroy Sheffield MD on July 25, 2016 at 17:05 Board Certified Radiologist. This report was verified electronically. Glenroy Sheffield MD on July 25, 2016 at 17:16 Board Certified Radiologist. This report was verified electronically.
--- NOTE | 2016-07-25 17:14 | RADRPT ---
EXAM DATE/TIME: 07/25/2016 16:37 [facility] COMPARISON: No previous studies available for comparison. INDICATIONS : Shortness of breath today. RADIATION DOSE: 9.96 CTDIvol (mGy) ; Combined studies MEDICAL HISTORY : None SURGICAL HISTORY : None. ENCOUNTER: Initial ACUITY: 1 day PAIN SCALE: 0/10 LOCATION: Bilateral chest TECHNIQUE: Volumetric scanning of the chest was performed. Using automated exposure control and adjustment of t he mA and/or kV according to patient size, radiation dose was kept as low as reasonably achievable to obtain optimal diagnostic quality images. FINDINGS: Focal consolidation measuring about 22 mm in size seen medially of the right middle lobe. There is al so a 3 mm right middle lobe nodule, series 3 a 3 image 41. Lungs are otherwise clear. No pleural effu latoya. No pneumothorax. Heart and mediastinum within normal limits. No lymphadenopathy seen. CONCLUSION: Focal dense consolidation right middle lobe, nonspecific but most likely infectious or inflammatory. Also a 3 mm right basilar pulmonary nodule Followup noncontrast chest CT in a few months recommended to confirm resolution/stability. Glenroy Sheffield MD on July 25, 2016 at 17:10 Board Certified Radiologist. This report was verified electronically.
[2016-07-25] MEDS ORDERED: ASPIRIN 81 MG CHEW TAB CHEW ONE (17:15)
--- NOTE | 2016-07-25 17:17 | RADRPT ---
EXAM DATE/TIME: 07/25/2016 16:52 [facility] COMPARISON: CT ABDOMEN & PELVIS W/O CONTRAST, July 25, 2016, 16:37. INDICATIONS : Sepsis. Right leg pain. MEDICAL HISTORY : None. SURGICAL HISTORY : None. ENCOUNTER: Initial ACUITY: 1 day PAIN SCORE: 6/10 LOCATION: Right lateral FINDINGS: Bones of the right hip are intact and normally aligned. There is soft tissue swelling, especially gluteus medius and minimus. CONCLUSION: Intact pelvis and right hip. Nonspecific surrounding soft tissue swelling Glenroy Sheffield MD on July 25, 2016 at 17:14 Board Certified Radiologist. This report was verified electronically.
[2016-07-25] MEDS ORDERED: SODIUM BICARBONATE 8.4% INJ 50 MEQ/50 ML SYR IV PUSH ONE ×2 (17:30)
[2016-07-25 17:51] LABS: BLOOD GAS BASE EXCESS -6.7 mmol/L (-2-2); BLOOD GAS CARBOXYHEMOGLOBIN 1.3 % (0-4); BLOOD GAS HCO3 19 mmol/L (22-26); BLOOD GAS O2 HGB SATURATION 96 % (90-100); BLOOD GAS OXYGEN CONTENT 18.3 Vol % (12.0-20.0); BLOOD GAS PCO2 38 mmHg (38-42); BLOOD GAS PO2 130 mmHg (61-120); BLOOD GAS TOTAL HGB 13.4 G/DL (12.0-16.0); TEMP CORR TO 98.6
[2016-07-25 17:52] LABS: CRITICAL VALUE NO
[2016-07-25 17:53] LABS: DRAW SITE RT RADIAL; LITER FLOW 2 L/M; NUMBER OF ARTERIAL PUNCTURES 1; STAT NO; ULNAR PULSE PRESENT
[2016-07-25 17:57] VITALS: O2SAT 100
[2016-07-25 18:38] LABS: CKMB 1833.2 NG/ML (0.5-3.6)
[2016-07-25 19:00] VITALS: BP 153/63; PULSE 113; RESP 20; TEMP 97.2; O2SAT 95
--- NOTE | 2016-07-25 19:25 | RADRPT ---
EXAM DATE/TIME: 07/25/2016 18:54 [facility] COMPARISON: No previous studies available for comparison. INDICATIONS : Right thigh leg swelling and tenderness. RADIATION DOSE: 11.52 CTDIvol (mGy) MEDICAL HISTORY : None SURGICAL HISTORY : None. ENCOUNTER: Initial ACUITY: 1 day PAIN SCALE: 3/10 LOCATION: Right femur TECHNIQUE: Volumetric scanning of the femur was performed. Using automated exposure control and adjustment of t he mA and/or kV according to patient size, radiation dose was kept as low as reasonably achievable to obtain optimal diagnostic quality images. FINDINGS: Muscles of the right thigh are diffusely swollen and of heterogeneous attenuation. The buttock is als o involved, gluteus medius and minimus but not significantly fauzia. I don't see any gas bubbles. Th ere is mild edema in the subcutaneous tissues below the knee, some of the calf muscles appear to be i nvolved as well, primarily medial gastroc. No organized or drainable fluid or hemorrhage demonstrated . The right femur is intact. No periosteal reaction or other bony abnormality. CONCLUSION: Extensive nonspecific myositis of the right thigh, also involves gluteus medius and minimus proximall y and at least medial gastrocnemius below the knee. Infectious/inflammatory and ischemic etiologies w ould be in the differential. No gas bubbles are seen to substantiate necrotizing fasciitis. No organi zed/drainable abscess. Glenroy Sheffield MD on July 25, 2016 at 19:18 Board Certified Radiologist. This report was verified electronically.
--- NOTE | 2016-07-25 19:37 | PD.CAR.PN ---
CVT Progress Note Subjective/Hospital Course: Patient with clinical findings of medial and lateral thigh compartment syndrome For OR now Thanks J Objective: Vital Signs Date Time Temp Pulse Resp B/P Pulse Ox O2 Delivery O2 Flow Rate FiO2 07/25/16 17:57 100 Nasal Cannula 2.00 07/25/16 17:00 97.8 123 25 157/95 07/25/16 16:11 122 18 141/90 100 Nasal Cannula 2 07/25/16 13:26 130 20 98 Room Air 07/25/16 13:21 97.8 130 20 104/57 98 Labs: Laboratory Tests Test 07/25/16 07/25/16 07/25/16 07/25/16 13:30 14:25 15:19 15:36 White Blood Count 18.7 TH/MM3 (4.0-11.0) Red Blood Count 4.81 MIL/MM3 (4.00-5.30) Hemoglobin 17.4 GM/DL (11.6-15.3) Hematocrit 52.3 % (35.0-46.0) Mean Corpuscular Volume 108.6 FL (80.0-100.0) Mean Corpuscular Hemoglobin 36.1 PG (27.0-34.0) Mean Corpuscular Hemoglobin 33.2 % Concent (32.0-36.0) Red Cell Distribution Width 13.2 % (11.6-17.2) Platelet Count 231 TH/MM3 (150-450) Mean Platelet Volume 8.1 FL (7.0-11.0) Neutrophils (%) (Auto) 92.4 % (16.0-70.0) Lymphocytes (%) (Auto) 2.2 % (9.0-44.0) Monocytes (%) (Auto) 5.2 % (0.0-8.0) Eosinophils (%) (Auto) 0.0 % (0.0-4.0) Basophils (%) (Auto) 0.2 % (0.0-2.0) Neutrophils # (Auto) 17.2 TH/MM3 (1.8-7.7) Lymphocytes # (Auto) 0.4 TH/MM3 (1.0-4.8) Monocytes # (Auto) 1.0 TH/MM3 (0-0.9) Eosinophils # (Auto) 0.0 TH/MM3 (0-0.4) Basophils # (Auto) 0.0 TH/MM3 (0-0.2) CBC Comment DIFF FINAL Differential Comment Sodium Level 140 MEQ/L (136-145) Potassium Level 6.2 MEQ/L (3.5-5.1) Chloride Level 101 MEQ/L (98-107) Carbon Dioxide Level 11.2 MEQ/L (21.0-32.0) Anion Gap 28 MEQ/L (5-15) Blood Urea Nitrogen 17 MG/DL (7-18) Creatinine 2.97 MG/DL (0.50-1.00) Estimat Glomerular Filtration 19 ML/MIN (>89) Rate Random Glucose 59 MG/DL (74-106) Calcium Level 6.6 MG/DL (8.5-10.1) Protein Corrected Calcium 6.6 MG/DL (8.5-10.1) Total Bilirubin 0.9 MG/DL (0.2-1.0) Aspartate Amino Transf 6641 U/L (AST/SGOT) (15-37) Alanine Aminotransferase 1319 U/L (ALT/SGPT) (10-53) Alkaline Phosphatase 177 U/L (45-117) Total Creatine Kinase 544315 U/L (26-192) Creatine Kinase MB 1833.2 NG/ML (0.5-3.6) Creatine Kinase MB % 1.4 % (0.0-4.0) Troponin I 6.24 NG/ML (0.02-0.05) Total Protein 7.2 GM/DL (6.4-8.2) Albumin 3.7 GM/DL (3.4-5.0) Salicylates Level LESS THAN 1.7 MG/DL (2.8-20.0) Acetaminophen Level LESS THAN 2.0 MCG/ML (10.0-30.0) Ethyl Alcohol Level 28 MG/DL (0-5) Lactic Acid Level 9.1 mmol/L (0.4-2.0) Blood Gas Puncture Site RT RADIAL Blood Gas Patient Temperature 98.6 Blood Gas HCO3 11 mmol/L (22-26) Blood Gas Base Excess -16.6 mmol/L (-2-2) Blood Gas Oxygen Saturation 91 % (90-100) Arterial Blood pH 7.14 (7.380-7.420) Arterial Blood Partial 33 mmHg (38-42) Pressure CO2 Arterial Blood Partial 90 mmHG Pressure O2 (61-120) Arterial Blood Oxygen Content 20.3 Vol % (12.0-20.0) Arterial Blood 2.3 % (0-4) Carboxyhemoglobin Arterial Blood Methemoglobin 1.8 % (0-2) Blood Gas Hemoglobin 15.8 G/DL (12.0-16.0) Oxygen Delivery Device ROOM AIR Blood Gas Inspired Oxygen 21 % Prothrombin Time 15.4 SEC (9.8-11.6) Prothromb Time International 1.4 RATIO Ratio Activated Partial 25.2 SEC Thromboplast Time (24.3-30.1) Test 07/25/16 07/25/16 07/25/16 16:10 17:45 18:20 Urine Color LIGHT-RED (YELLW/STRAW) Urine Turbidity HAZY (CLEAR) Urine pH 6.0 (5.0-8.5) Urine Specific [place] 1.006 (1.002-1.035) Urine Protein 100 mg/dL (NEG-TRACE) Urine Glucose (UA) NEG mg/dL (NEG) Urine Ketones TRACE mg/dL (NEG) Urine Occult Blood MOD (NEG) Urine Nitrite NEG (NEG) Urine Bilirubin NEG (NEG) Urine Urobilinogen LESS THAN 2.0 MG/DL (LESS THAN 2.0) Urine Leukocyte Esterase SMALL (NEG) Urine RBC 2 /hpf (0-3) Urine WBC 12 /hpf (0-5) Urine Squamous Epithelial 1 /hpf (0-5) Cells Urine Amorphous Sediment RARE Urine Bacteria FEW /hpf (NONE) Urine Mucus FEW /lpf (OCC) Microscopic Urinalysis Comment CULTURE INDICATED Urine Opiates Screen NEG (NEG) Urine Barbiturates Screen NEG (NEG) Urine Amphetamines Screen NEG (NEG) Urine Benzodiazepines Screen NEG (NEG) Urine Cocaine Screen NEG (NEG) Urine Cannabinoids Screen NEG (NEG) Blood Gas Puncture Site RT RADIAL Blood Gas Patient Temperature 98.6 Blood Gas HCO3 19 mmol/L (22-26) Blood Gas Base Excess -6.7 mmol/L (-2-2) Blood Gas Oxygen Saturation 96 % (90-100) Arterial Blood pH 7.30 (7.380-7.420) Arterial Blood Partial 38 mmHg (38-42) Pressure CO2 Arterial Blood Partial 130 mmHg Pressure O2 (61-120) Arterial Blood Oxygen Content 18.3 Vol % (12.0-20.0) Arterial Blood 1.3 % (0-4) Carboxyhemoglobin Arterial Blood Methemoglobin 1.0 % (0-2) Blood Gas Hemoglobin 13.4 G/DL (12.0-16.0) Blood Gas Liter Flow 2 L/M Lactic Acid Level 7.2 mmol/L (0.4-2.0) Result Diagram: 07/25/16 1330 07/25/16 1330 Saw Turner MD Jul 25, 2016 19:37
--- NOTE | 2016-07-25 19:40 | MB ---
cc: PATTIE WASHINGTON M.D. DATE OF CONSULTATION 07/25/2016 HISTORY Mi is a very pleasant 30-year-old lady apparently had some sort of overdose today according to her. She does not remember why she was brought to the hospital or who brought her. However, she completely is asymptomatic. Denies any chest pain, shortness breath, fevers, chills, cough, GI or bleeding, paroxysmal nocturnal dyspnea, orthopnea, syncope or dizziness. She does admit to abusing cocaine last night. However, she is found to have an abnormal EKG which is not available in the computer or the ICU, none of the EKGs are available, but Dr. Jean Baptiste thought that the patient had a Brugada morphology to her QRS wave tracing. PAST MEDICAL HISTORY Is per history present illness. SOCIAL HISTORY She drinks alcohol daily. She smokes a pack of cigarettes a day. She smokes marijuana. ALLERGIES NONE. MEDICATIONS In the hospital: 1. Pantoprazole 40 IV daily. 2. Aspirin 325 daily. 3. Piperacillin. 4. Sodium bicarb. 5. Thiamine IV. 6. Lovenox 30 subcu q.24h. 7. She received acetylcysteine IV times one. PHYSICAL EXAMINATION VITAL SIGNS: Blood pressure 157/95, pulse 123, respiratory rate 25, temperature 97.8. Saturation is 100% on 2 liters nasal cannula. GENERAL: She is alert and oriented times three in no acute distress. NECK: Supple. No JVD. No bruits. CARDIOVASCULAR: S1-S2. No murmurs, rubs, or gallops. LUNGS: Clear to auscultation bilaterally. ABDOMEN: Soft, nontender. Nondistended. Positive bowel sounds. EXTREMITIES: No lower extremity edema. IMAGING She had a hip x-ray which showed intact pelvis and right hip. Nonspecific surrounding soft tissue swelling. Head CT scan negative non contrast head CT scan. Chest CT scan focal dense consolidation right middle lobe nonspecific but most likely infectious or inflammatory. A 3 mm right basilar pulmonary nodule. CT scan of the abdomen and pelvis, fatty liver, 21 mm right ovarian cyst, on heterogeneous right hip musculature primarily gluteus medius and minimus, rectus femoris, and vastus lateralis, and the adductor muscle, this is nonspecific but suggest a subacute hematoma of these structures. nothing organized, measurable. L5-S1 spondylolisthesis. Chest x-ray no acute cardiopulmonary disease identified. LABORATORY DATA White count 18.7, hemoglobin 17.4, hematocrit 52.3, platelet count 231. Blood gas, pH 7.14, PCO2 33, PO2 90 on room air. INR is 1.4. Sodium 140, potassium 6.2, chloride 101, bicarbonate 11.2, BUN 17, creatinine 2.97. Lactic acid is 9.1. Calcium is 6.6. AST 6641, ALT 1319. Troponin is 6.24. Albumin is 3.7. Toxicology ethyl alcohol was 28. Cocaine is negative. Again the EKG is unavailable. ASSESSMENT 1. Elevated troponin. 2. Lactic acidosis. 3. Probably hypovolemic shock and/or sepsis. 4. Polycythemia. 5. Right hip hematoma and/or infectious process. 6. Polysubstance abuse. 7. Hypocalcemia. 8. Hepatitis. 9. Hyperkalemia. 10. Acute renal failure. 11. Coagulopathy. 12. Macrocytosis. 13. Polycythemia. 14. Elevated white count. DISCUSSION At this point in time her history suggests that she had a hypotensive event leading to the lactic acidosis, acute renal failure and probably global hypoperfusion of her myocardium with resulting troponin elevation. Also I suspect her altered mental status and confusion is again probably related to hypotensive event. She is completely asymptomatic. I have explained to her that doing a heart cath right now would be much higher risk than baseline for requiring temporary or permanent dialysis. The patient refuses heart catheterization. I did discuss these issues in the presence of the nurse at the bedside and also discussed this with Dr. Tim and Dr. Jean Baptiste as well. We will continue to follow her closely. We will need to get troponin trend. Agree with aspirin usage. Interestingly enough the patient admits to cocaine use, however, this is on negative on toxicology screen. MD MARILYN Villegas/BRUNO /6:19 PM /7:21 PM
[2016-07-25 20:00] VITALS: PULSE 113
[2016-07-25 20:03] LABS: POTASSIUM 4.9 MEQ/L (3.5-5.1)
[2016-07-25 20:34] LABS: CALCIUM-PROTEIN CORRECTED 6.3 MG/DL (8.5-10.1)
[2016-07-25 21:20] LABS: CKMB 1403.8 NG/ML (0.5-3.6)
[2016-07-25] MEDS ORDERED: fentaNYL CITRATE 250 MCG/5 ML AMP ONE (21:24)
[2016-07-25] MEDS: SODIUM CHLORIDE 0.9% FLUSH 5 ML FLUSH IV FLUSH SCH (21:30)
[2016-07-25] MEDS: SODIUM BICARBONATE 8.4% INJ 100 MEQ in DEXTROSE 5% IN WATE 1000ML INJ 1,000 ML IV SCH ×2 (21:35)
[2016-07-25] MEDS ORDERED: DO NOT ADM ANY ANTICOAGULANT DRUGS XX PRN (22:00)
[2016-07-25] MEDS ORDERED: MORPHINE SULFATE 4 MG/ML INJ ONE (22:24)
[2016-07-25] MEDS ORDERED: *MEPERIDINE 25 MG INJ VIAL PERIprocedural Use ONLY ONE (22:24)
[2016-07-25] MEDS: THIAMINE INJ 100 MG in SODIUM CHLORIDE 0.9% INJ 100 ML IV SCH (23:00)
[2016-07-26] VITALS (19 sets, daily range): BP systolic 87–137; BP diastolic 53–86; PULSE 18–122; RESP 11–21; TEMP 97.7–98.9; O2SAT 95–100
[2016-07-26] MEDS: PIPERACIL-TAZO 3.375 GM PREMIX 50 ML IV SCH ×4 (01:05→23:53)
[2016-07-26 02:50] LABS: AUTOMATED NEUTROPHIL # 10.9 TH/MM3 (1.8-7.7); BASOPHIL % 0.2 % (0.0-2.0); HEMATOCRIT 31.9 % (35.0-46.0); LYMPH % 4.8 % (9.0-44.0); LYMPHOCYTE # 0.6 TH/MM3 (1.0-4.8); MEAN CELL VOLUME 105.6 FL (80.0-100.0); MEAN CORPUSCULAR HEMOGLOBIN 36.7 PG (27.0-34.0); MEAN CORPUSCULAR HGB CONC 34.7 % (32.0-36.0); MONO % 1.2 % (0.0-8.0); NEUT % 93.8 % (16.0-70.0); PLATELET COUNT 116 TH/MM3 (150-450); RED BLOOD COUNT 3.02 MIL/MM3 (4.00-5.30); RED CELL DISTRIBUTION WIDTH 13.3 % (11.6-17.2); WHITE BLOOD COUNT 11.6 TH/MM3 (4.0-11.0)
[2016-07-26 03:14] LABS: HEMO FLAGS AUTO DIFF
[2016-07-26 03:15] LABS: PLATELET ESTIMATE SMEAR LOW (NORMAL); PLATELET MORPHOLOGY NORMAL (NORMAL); SCAN/DIFF AUTO DIFF CONFIRMED
[2016-07-26 03:17] LABS: ALT (GPT) 952 U/L (10-53); ANION GAP 18 MEQ/L (5-15); BICARBONATE 22.2 MEQ/L (21.0-32.0); BLOOD UREA NITROGEN 23 MG/DL (7-18); CHLORIDE 106 MEQ/L (98-107); GLOMERULAR FILTRATION RATE 18 ML/MIN (>89); MAGNESIUM 1.4 MG/DL (1.5-2.5); POTASSIUM 4.8 MEQ/L (3.5-5.1); SODIUM (NA) 146 MEQ/L (136-145)
[2016-07-26] MEDS: SODIUM BICARBONATE 8.4% INJ 100 MEQ in DEXTROSE 5% IN WATE 1000ML INJ 1,000 ML IV SCH ×4 (03:18→05:17)
[2016-07-26 03:49] LABS: ALKALINE PHOSPHATASE 54 U/L (45-117); AST (GOT) 6693 U/L (15-37); TOTAL BILIRUBIN ADULT 0.7 MG/DL (0.2-1.0)
[2016-07-26 04:14] LABS: CALCIUM-PROTEIN CORRECTED 6.3 MG/DL (8.5-10.1); CREATINE KINASE GREATER THAN 10000 U/L (26-192)
[2016-07-26 04:41] LABS: CKMB 940.4 NG/ML (0.5-3.6)
[2016-07-26] MEDS: CHLORHEXIDINE GLUCONATE 2 % 1 PACK (2 CLOTHS) TOP SCH (05:17)
[2016-07-26] MEDS: LORazepam 2 MG/ML VIAL IV PUSH PRN (05:24)
--- NOTE | 2016-07-26 05:50 | RADRPT ---
EXAM DATE/TIME: 07/26/2016 04:44 [facility] COMPARISON: CHEST SINGLE AP, July 25, 2016, 14:22. INDICATIONS : Evaluate lungs after respiratory failure. MEDICAL HISTORY : None. SURGICAL HISTORY : None. ENCOUNTER: Initial ACUITY: 3 days PAIN SCORE: 8/10 LOCATION: Bilateral chest FINDINGS: The lungs are clear without infiltrate, nodule, or mass. There is no appreciable pleural effusion fo r technique. Heart and mediastinum are unremarkable. CONCLUSION: No acute cardiopulmonary disease. Kathy Berry MD on July 26, 2016 at 5:48 Board Certified Radiologist. This report was verified electronically.
[2016-07-26] MEDS: SODIUM CHLORIDE 0.9% FLUSH 5 ML FLUSH IV FLUSH SCH ×2 (07:46→21:43)
--- NOTE | 2016-07-26 07:50 | HHI.CCPN ---
Subjective Remarks/Hospital Course Patient is a 30-year-old female who was brought to the emergency department by the police for medical clearance. Apparently patient was found in bed with her boyfriend this morning who overdosed on drugs. Patient's boyfriend was was found on the bed. In the ER patient reported numbness to the right side of the body and she admits to snorting some cocaine last night. Patient does not recall any of the events overnight or how she got to the hospital. Her drug screen was essentially negative but she admits to cocaine and heroine use. Patient is a very poor historian. EKG shows probable ST elevation V1 and V2 questionable Brugada syndrome. Initially was hypotensive but responded well to IV fluids. Received total 3 L of fluids but remained tachycardic. There were multiple lab abnormalities. Her CBC showed WBC 18.7 with 92% neutrophils. Her chemistry showed potassium of 6.2, BUN of 17 creatinine 2.97, bicarbonate was only 11.2 with an anion gap of 22. Liver enzymes are markedly elevated AST was 6641 ALT was 1419. Patient was hypocalcemic with 6.6 calcium. Lactate came back very elevated at 9.1. Tylenol level was negative. I believe transaminitis is from shocked liver from hypotension-patient denies hepatitis C. CT of the head was negative I evaluated the patient in the ED. She looks critically ill but did not appear to be in distress at this time. Patient denies chest pain. Her troponin came back at 6.24, CPK pending. 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 Carter sales office administrator.. CK is highly elevated indicating rhabdomyolysis. Dr. Carter does not think this meets criteria for STEMI as the patient is asymptomatic. I did a bedside echo which showed normal ejection fraction no vegetation on the valve on my evaluation. Patient's right thigh is swollen and tense with severe tenderness, distal pulses are palpable but she appears to have compartment syndrome of right thigh. I spoke with Dr. Balderas who will evaluate the patient stat for fasciotomy. Continue IV hydration with bicarb infusion Subjective 07/26: Afebrile. Complaining of "tingling" in hands. Complains of being dehydrated. Complains of pain in her right thigh. Resting in bed and appears to be in no acute distress. Objective Vital Signs Date Time Temp Pulse Resp B/P Pulse Ox O2 Delivery O2 Flow Rate FiO2 11/28/16 06:00 115 07/26/16 06:00 13 99/57 95 07/26/16 04:00 98.1 07/25/16 17:57 Nasal Cannula 2.00 Result Diagram: 07/26/16 0235 07/26/16 0235 Other Results Microbiology Date/Time Procedure Status Source Growth 07/25/16 16:10 Urine Culture Received Urine Random Urine Pending 07/25/16 14:25 Aerobic Blood Culture Received Blood Peripheral Pending 07/25/16 14:25 Anaerobic Blood Culture Received Blood Peripheral Pending Imaging Last Impressions Chest X-Ray 07/26/16 0000 Signed Impressions: Service Date/Time: Tuesday, July 26, 2016 04:44 - CONCLUSION: No acute cardiopulmonary disease. Kathy Berry MD Lower Extremity CT 07/25/16 0000 Signed Impressions: Service Date/Time: Monday, July 25, 2016 18:54 - CONCLUSION: Extensive nonspecific myositis of the right thigh, also involves gluteus medius and minimus proximally and at least medial gastrocnemius below the knee. Infectious/inflammatory and ischemic etiologies would be in the differential. No gas bubbles are seen to substantiate necrotizing fasciitis. No organized/drainable abscess. Glenroy Sheffield MD Hip and Pelvis X-Ray 07/25/16 0000 Signed Impressions: Service Date/Time: Monday, July 25, 2016 16:52 - CONCLUSION: Intact pelvis and right hip. Nonspecific surrounding soft tissue swelling Glenroy Sheffield MD Head CT 07/25/16 0000 Signed Impressions: Service Date/Time: Monday, July 25, 2016 14:38 - CONCLUSION: Negative noncontrast head CT. Glenroy Sheffield MD Chest CT 07/25/16 0000 Signed Impressions: Service Date/Time: Monday, July 25, 2016 16:37 - CONCLUSION: Focal dense consolidation right middle lobe, nonspecific but most likely infectious or inflammatory. Also a 3 mm right basilar pulmonary nodule Followup noncontrast chest CT in a few months recommended to confirm resolution/stability. Glenroy Sheffield MD Abdomen/Pelvis CT 07/25/16 0000 Signed Impressions: Service Date/Time: Monday, July 25, 2016 16:37 - CONCLUSION: 1. Fatty liver and 21 mm right ovarian cyst. Otherwise, no acute abnormality seen within the abdomen or pelvis. 2. Swollen, heterogeneous right hip musculature, primarily gluteus medius and minimus, rectus femoris and vastus lateralis and the adductor muscles. This is nonspecific but suggests a subacute hematoma of these structures. Nothing organized/measurable. 3. Chronic L5 pars defects with grade 2 L5/S1 spondylolisthesis. Glenroy Sheffield MD Objective Remarks GENERAL: 30-year-old female. Critically ill currently resting in bed in no acute distress SKIN: Warm and dry. No rash. HEAD: Atraumatic. Normocephalic. EYES: Pupils equal and round about 3 Guerrero's bilaterally and reactive. No scleral icterus. No injection or drainage. ENT: No nasal bleeding or discharge. Mucous membranes dry and pink NECK: Trachea midline. No JVD. CARDIOVASCULAR: Tachycardic, RR. S1, S2. No S4. Faint 2/6 murmur RESPIRATORY: Clear to auscultation. Breath sounds equal bilaterally. GASTROINTESTINAL: Abdomen soft, non-tender, nondistended. Hepatomegaly. Hypoactive bowel sounds. Abrasions. MUSCULOSKELETAL: Right thigh is swollen and tense with severe tenderness in currently wrapped in Navid bandage. Right hip tender with restricted mobility. NEUROLOGICAL: Awake and alert. Motor grossly within normal limits. Normal speech. Weakness to right leg most likely secondary to pain Urinary Catheter: Yes Assessment to: Continue Sinclair insert reason: Prolonged Immobilization Vascular Central Line Catheter: No Assessment to: Continue A/P Assessment and Plan NEURO: Altered mental status Polysubstance abuse with drug overdose including cocaine/heroin Right upper extremity numbness History of THC use EtOH -Watch for alcohol and drug withdrawal, Use PRN Ativan and morphine -Complains of mild numbness of right upper extremity, -CT of the head 07/25 revealed no acute intracranial findings -Started on aspirin for elevated troponin. -Thiamine 100 mg IV daily. Add multivitamin and folate daily RESP: Mild Respiratory insufficiency secondary to pneumonia/metabolic acidosis Small consolidation right middle lobe\\ Right basilar pulmonary nodule 3 mm - follow-up CT chest 3 months recommended Ongoing tobaccoism -Nasal cannula oxygen to maintain saturations greater than equal to 92% -Incentive spirometry while awake -CT chest right middle lobe infiltrate along with 3 mm right basilar pulmonary nodule. -Chest x-ray 07/26 reveals no significant cardio pulmonary findings -DuoNeb every 2 hours when necessary -See ID section for broad-spectrum antibiotics CV: Elevated troponin Severe lactic acidosis ST elevation in V1 and V2 -Normal saline IV fluids 5 L bolus and maintenance fluid with bicarbonate infusion at 250 ML per hour -Discussed extensively with Dr. Carter, does not meet criteria for STEMI -Continue aspirin, will not use beta blockers due to cocaine abuse -2d echo, cycle troponin and CPK. Lactic acid currently 4.6. Recheck daily hours to clear GI: Transaminitis Rhabdomyolysis -Transaminitis most likely secondary to shock -CT of the abdomen and pelvis shows fatty liver/21 mm right ovarian cyst -Check hepatitis panel -Keep nothing by mouth IV Pepcid /Renal: Acute kidney failure Hyperkalemia - resolved Acute rhabdomyolysis Severe anion gap metabolic acidosis -Continue aggressive fluid resuscitation with 4 L normal saline and maintenance fluid with sterile water with 3 ampules sodium bicarbonate at 250 ML per hour -Check renal ultrasound -Strict intake output. -Urine electrolytes/eosinophils pending. - Nephrology consult ordered -Repeat CMP at 1500 PROMOTION SPECIALIST: Right ovarian cyst Beta hCG pending ID: Severe sepsis -Source likely secondary to right thigh compartment syndrome -Continue vancomycin and Zosyn day #2 -Infectious disease consult. Small consolidation in the right middle lobe unlikely to be source of severe sepsis -Rule out infective endocarditis echocardiogram today Pertinent cultures 07/25 - blood cultures 2 - pending 07/25 - urine culture - pending HEME: Macrocytic anemia Leukocytosis Thrombocytopenia -Monitor CBC, CMP, coags in a.m. -Check B12 ENDO: -Sliding-scale insulin if clinically indicated FEN: Hypo-magnesium Hypocalcemia Hypernatremia Received 1 g calcium chloride, 2 g mag sulfate IV 1. Recheck at 1500 hrs. today. Replace electrolytes as clinically indicated. Currently nothing by mouth Msk: Right medial/lateral thigh compartment syndrome L5/S1 spondylolisthesis Status post day [address] Turner Likely back for washout again today. PROPH: -Bilateral lower extremity SCDs. Heparin 5000 units subcutaneous twice a day LINES: -Utilize peripheral IVs, central line if needed Critical Care: The total critical care time was 45 minutes. Time to perform other separately billable procedures was not included in the critical care time. Wiliam Barron MD Jul 26, 2016 07:50
[2016-07-26] MEDS ORDERED: SODIUM CHLORIDE 0.9% FLUSH 5 ML FLUSH IV FLUSH PRN (08:00)
[2016-07-26] MEDS ORDERED: SENNOSIDES 8.6 MG TAB PO PRN (08:00)
[2016-07-26] MEDS ORDERED: CHLORHEXIDINE GLUCONATE 2 % 1 PACK (2 CLOTHS) TOP PRN (08:00)
[2016-07-26] MEDS ORDERED: MISCELLANEOUS NURSING INFORMATION XX SCH (08:00)
[2016-07-26] MEDS: RESP: ALBUTEROL 2.5 MG/IPRATROPIUM 0.5 MG NEB (SCH) INH ×5 (08:15→23:56)
[2016-07-26] MEDS ORDERED: GLUCAGON 1 MG/ML VIAL OTHER PRN (08:15)
[2016-07-26] MEDS ORDERED: DEXTROSE 50% IN WATER 50 ML VIAL(D50) IV PUSH PRN (08:15)
[2016-07-26] MEDS: MAGNESIUM SULFATE 1 GM PREMIX 100 ML IV SCH ×3 (08:30→11:20)
[2016-07-26] MEDS ORDERED: CALCIUM CHLORIDE INJ 1 GM in SODIUM CHLORIDE 0.9% INJ 100 ML IV ONE (09:00)
[2016-07-26] MEDS: ARTIFICIAL TEARS OPTH SOLN 15 ML BTL EACH EYE SCH ×3 (09:00→17:58)
[2016-07-26] MEDS ORDERED: HEPARIN SODIUM - SQ 10,000 UNITS/ML VIAL SQ SCH (09:00)
[2016-07-26] MEDS: ASPIRIN EC 325 MG TABEC PO SCH (09:00)
[2016-07-26] MEDS ORDERED: PANTOPRAZOLE SODIUM 40 MG VIAL IV SCH (09:00)
[2016-07-26] MEDS ORDERED: SODIUM CHLORIDE 0.9% FLUSH 5 ML FLUSH IV FLUSH SCH (09:00)
[2016-07-26 09:03] LABS: HEMATOCRIT 22.9 % (35.0-46.0)
[2016-07-26] MEDS: DOCUSATE SODIUM 100 MG CAP PO SCH ×2 (09:09→21:41)
[2016-07-26] MEDS: SODIUM BICARBONATE 8.4% INJ 150 MEQ in WATER STERILE FOR INJ 850 ML IV SCH ×4 (09:09→23:53)
[2016-07-26 09:10] LABS: REVIEW FLAG FINAL
[2016-07-26] MEDS: FOLIC ACID 1 MG TAB PO SCH (09:10)
[2016-07-26] MEDS: ALBUMIN HUMAN 25% 25 GM/100 ML BAGP IV SCH ×4 (09:10→23:54)
[2016-07-26] MEDS: MULTIVITAMIN TAB PO SCH (09:10)
[2016-07-26] MEDS: FAMOTIDINE 20 MG/2 ML VIAL IV PUSH SCH (09:11)
[2016-07-26 09:20] LABS: INTERNATIONAL NORMALIZED RATIO 1.6 RATIO; PROTHROMBIN TIME - PATIENT 18.3 SEC (9.8-11.6)
[2016-07-26] MEDS: THIAMINE INJ 100 MG in SODIUM CHLORIDE 0.9% INJ 100 ML IV SCH (09:32)
[2016-07-26] MEDS ORDERED: PHYTONADIONE INJ 10 MG in DEXTROSE 5% IN WATER INJ 50 ML IV ONE ×2 (10:00)
[2016-07-26 10:14] LABS: ALKALINE PHOSPHATASE 41 U/L (45-117); ALT (GPT) 838 U/L (10-53); ANION GAP 15 MEQ/L (5-15); AST (GOT) 5374 U/L (15-37); BETA HCG QUANT LESS THAN 1 MIU/ML (0-5); BICARBONATE 24.8 MEQ/L (21.0-32.0); BLOOD UREA NITROGEN 28 MG/DL (7-18); CHLORIDE 98 MEQ/L (98-107); GLOMERULAR FILTRATION RATE 16 ML/MIN (>89); MAGNESIUM 1.4 MG/DL (1.5-2.5); POTASSIUM 3.9 MEQ/L (3.5-5.1); SODIUM (NA) 138 MEQ/L (136-145); TOTAL BILIRUBIN ADULT 0.8 MG/DL (0.2-1.0)
[2016-07-26 10:18] LABS: CALCIUM-PROTEIN CORRECTED 6.7 MG/DL (8.5-10.1)
--- NOTE | 2016-07-26 10:21 | EKG ---
Date Performed: 07/25/2016 Time Performed: 13:26:28 PTAGE: 30 years EKG: UNCERTAIN IRREGULAR RHYTHM INTRAVENTRICULAR CONDUCTION DELAY CLINICAL CORRELATION RECOMMEND ED NO PREVIOUS TRACING DOCTOR: Adama Jimenez Interpretating Date/Time 07/26/2016 10:21:04
--- NOTE | 2016-07-26 10:50 | EKG ---
Date Performed: 07/25/2016 Time Performed: 15:42:24 PTAGE: 30 years EKG: SINUS TACHYCARDIA WITH FIRST DEGREE AV BLOCK ABNORMAL ECG PREVIOUS TRACING : 07/25/2016 13.33 Since previous tracing, no significant change noted DOCTOR: Adama Jimenez Interpretating Date/Time 07/26/2016 10:49:19
--- NOTE | 2016-07-26 10:54 | EKG ---
Date Performed: 07/25/2016 Time Performed: 13:33:55 PTAGE: 30 years EKG: SINUS TACHYCARDIA WITH FIRST DEGREE AV BLOCK ABNORMAL ECG PREVIOUS TRACING : 07/25/2016 13.26 Since previous tracing, no significant change noted DOCTOR: Adama Jimenez Interpretating Date/Time 07/26/2016 10:52:41
[2016-07-26] MEDS: INSULIN NovoLIN REGULAR SUPPLEMENTAL SCALE SQ SCH ×3 (11:00→21:00)
[2016-07-26 11:25] LABS: CREATINE KINASE GREATER THAN 14000 U/L (26-192)
[2016-07-26 11:26] LABS: CKMB 605.8 NG/ML (0.5-3.6)
[2016-07-26] MEDS ORDERED: NEOSTIGMINE 3 MG/3 ML SYR IV ONE (12:00)
[2016-07-26] MEDS ORDERED: ONDANSETRON HCL 4 MG/2 ML VIAL IV PUSH ONE (12:00)
[2016-07-26] MEDS ORDERED: LACTATED RINGER'S 1000 ML INJ 1,000 ML IV ONE (12:00)
[2016-07-26] MEDS ORDERED: PHENYLEPH/NS 1000 MCG/10 ML SYR IV ONE (12:00)
[2016-07-26] MEDS ORDERED: PROPOFOL 200 MG/20 ML AMP IV ONE (12:00)
--- NOTE | 2016-07-26 12:01 | PD.ID.CON ---
History of Present Illness Service ID Consult Requested By Dr Tim Reason for Consult severe sepsis Primary Care Physician No Primary Care Physician Diagnoses: History of Present Illness 30 yo female brought in overdosed on drugs; she admits to snorting heroine and cocaine, denies IVDU. She also had numbness to the right lower extremetiy and was found to have R thigh complartment syndrome. Her CK is highly elevated indicating rhabdomyolysis and she has ARF. She is s/p stat R thigh fasciotomy. She is on continuos IV hydration with bicarb infusion and her UOP around 30 cc/ hr SHe has severe lactic acidosis of 9.1 on presentation, but her lactate is going down She is off presoors, on RA and has no other complains SHe is mentating clearly SHe has no fever and her WBC from 18 to 11 Her blood clx are negative at 1 day UA has mild pyuria and uine clx is P I dw Dr Murphy and he indicated that the R thigh muscles though look inflamed but did not appear infected Review of Systems Other as per history of present illness, the rest of 12 point review is negative Past Family Social History Allergies: Coded Allergies: No Known Allergies (Unverified , 12/10/14) Past Medical History none Past Surgical History none Active Ordered Medications Medications where reviewed in EMR Antibiotics Include: zosyn, vancomycin Family History Medications where reviewed in EMR Antibiotics Include: Social History + Tobacco 1ppd No ETOH. + Illicit Drugs: heroin, cocain, M Denies IVDA Physical Exam Vital Signs Vital Signs Date Time Temp Pulse Resp B/P Pulse Ox O2 Delivery O2 Flow Rate FiO2 07/26/16 07:57 100 21 07/26/16 06:00 115 07/26/16 06:00 115 13 99/57 95 07/26/16 05:00 114 14 87/53 100 07/26/16 04:00 98.1 111 13 95/54 100 07/26/16 04:00 111 07/26/16 03:00 117 14 97/55 100 07/26/16 02:00 105 12 98/59 98 07/26/16 02:00 105 07/26/16 00:00 116 07/26/16 00:00 98.0 116 21 108/62 100 07/25/16 23:00 99.2 109 14 104/47 99 Nasal Cannula 3 99 07/25/16 22:00 98.9 123 14 124/75 99 Nasal Cannula 3 99 07/25/16 21:45 116 15 113/67 99 Nasal Cannula 3 99 07/25/16 21:15 121 17 141/72 98 Nasal Cannula 3 98 07/25/16 21:09 98.3 113 16 154/92 97 Nasal Cannula 3 97 07/25/16 20:00 113 07/25/16 19:00 97.2 113 20 153/63 95 07/25/16 17:57 100 Nasal Cannula 2.00 07/25/16 17:00 97.8 123 25 157/95 07/25/16 16:11 122 18 141/90 100 Nasal Cannula 2 07/25/16 13:26 130 20 98 Room Air 07/25/16 13:21 97.8 130 20 104/57 98 Physical Exam CONSTITUTIONAL/GENERAL: This is an adequately nourished patient, in no apparent distress. SKIN: No jaundice, rashes, or lesions. Skin temperature appropriate. Not diaphoretic. HEAD: Atraumatic. Normocephalic. EYES: Pupils equal and round and reactive. Extraocular motions intact. No scleral icterus. No injection or drainage. Fundi not examined. ENT: Hearing grossly normal. Nose without bleeding or purulent drainage. Oral mucosae without visible erythema, exudates, masses, or lesions. NECK: Trachea midline. Supple, nontender. No palpable thyroid enlargement or nodularity. CARDIOVASCULAR: Regular rate and rhythm without murmurs, gallops, or rubs. No JVD. Peripheral pulses symmetric. RESPIRATORY/CHEST: Symmetric, unlabored respirations. Clear to auscultation. Breath sounds equal bilaterally. No wheezes, rales, or rhonchi. GASTROINTESTINAL: Abdomen soft, non-tender, mildly distended. No hepato- splenomegaly, or palpable masses. No guarding. Bowel sounds present. GENITOURINARY: Without palpable bladder distension. Sinclair catheter in place with small amount of dark urine MUSCULOSKELETAL: Extremities without clubbing, cyanosis, Prominent RLE non piting edema. Dressing in place R thigh with moderate serosangious dc No joint tenderness or effusion noted. No calf tenderness. No mottling or clubbing. R foot is warm, well perfuised but with prominent numbness LYMPHATICS: No palpable cervical or supraclavicular adenopathy. NEUROLOGICAL: Awake and alert. Motor and sensory grossly within normal limits. Follows commands. normal speech Moves all extremities. PSYCHIATRIC: No obvious anxiety/depression. no apparent hallucinations or other psychotic thought process. Laboratory Laboratory Tests Test 07/25/16 07/25/16 07/25/16 07/25/16 13:30 14:25 15:19 15:36 White Blood Count 18.7 Red Blood Count 4.81 Hemoglobin 17.4 Hematocrit 52.3 Mean Corpuscular Volume 108.6 Mean Corpuscular Hemoglobin 36.1 Mean Corpuscular Hemoglobin 33.2 Concent Red Cell Distribution Width 13.2 Platelet Count 231 Mean Platelet Volume 8.1 Neutrophils (%) (Auto) 92.4 Lymphocytes (%) (Auto) 2.2 Monocytes (%) (Auto) 5.2 Eosinophils (%) (Auto) 0.0 Basophils (%) (Auto) 0.2 Neutrophils # (Auto) 17.2 Lymphocytes # (Auto) 0.4 Monocytes # (Auto) 1.0 Eosinophils # (Auto) 0.0 Basophils # (Auto) 0.0 CBC Comment DIFF FINAL Differential Comment Sodium Level 140 Potassium Level 6.2 Chloride Level 101 Carbon Dioxide Level 11.2 Anion Gap 28 Blood Urea Nitrogen 17 Creatinine 2.97 Estimat Glomerular Filtration 19 Rate Random Glucose 59 Calcium Level 6.6 Protein Corrected Calcium 6.6 Total Bilirubin 0.9 Aspartate Amino Transf 6641 (AST/SGOT) Alanine Aminotransferase 1319 (ALT/SGPT) Alkaline Phosphatase 177 Total Creatine Kinase 046795 Creatine Kinase MB 1833.2 Creatine Kinase MB % 1.4 Troponin I 6.24 Total Protein 7.2 Albumin 3.7 Salicylates Level LESS THAN 1.7 Acetaminophen Level LESS THAN 2.0 Ethyl Alcohol Level 28 Lactic Acid Level 9.1 Blood Gas Puncture Site RT RADIAL Blood Gas Patient Temperature 98.6 Blood Gas HCO3 11 Blood Gas Base Excess -16.6 Blood Gas Oxygen Saturation 91 Arterial Blood pH 7.14 Arterial Blood Partial 33 Pressure CO2 Arterial Blood Partial 90 Pressure O2 Arterial Blood Oxygen Content 20.3 Arterial Blood 2.3 Carboxyhemoglobin Arterial Blood Methemoglobin 1.8 Blood Gas Hemoglobin 15.8 Oxygen Delivery Device ROOM AIR Blood Gas Inspired Oxygen 21 Prothrombin Time 15.4 Prothromb Time International 1.4 Ratio Activated Partial 25.2 Thromboplast Time Test 07/25/16 07/25/16 07/25/16 07/25/16 16:10 17:45 18:15 18:20 Urine Color LIGHT-RED Urine Turbidity HAZY Urine pH 6.0 Urine Specific [place] 1.006 Urine Protein 100 Urine Glucose (UA) NEG Urine Ketones TRACE Urine Occult Blood MOD Urine Nitrite NEG Urine Bilirubin NEG Urine Urobilinogen LESS THAN 2.0 Urine Leukocyte Esterase SMALL Urine RBC 2 Urine WBC 12 Urine Squamous Epithelial 1 Cells Urine Amorphous Sediment RARE Urine Bacteria FEW Urine Mucus FEW Microscopic Urinalysis Comment CULTURE INDICATED Urine Opiates Screen NEG Urine Barbiturates Screen NEG Urine Amphetamines Screen NEG Urine Benzodiazepines Screen NEG Urine Cocaine Screen NEG Urine Cannabinoids Screen NEG Blood Gas Puncture Site RT RADIAL Blood Gas Patient Temperature 98.6 Blood Gas HCO3 19 Blood Gas Base Excess -6.7 Blood Gas Oxygen Saturation 96 Arterial Blood pH 7.30 Arterial Blood Partial 38 Pressure CO2 Arterial Blood Partial 130 Pressure O2 Arterial Blood Oxygen Content 18.3 Arterial Blood 1.3 Carboxyhemoglobin Arterial Blood Methemoglobin 1.0 Blood Gas Hemoglobin 13.4 Blood Gas Liter Flow 2 Nasal Screen MRSA (PCR) NEGATIVE Lactic Acid Level 7.2 Test 07/25/16 07/26/16 07/26/16 07/26/16 19:16 02:35 08:47 10:25 Sodium Level 148 146 138 Potassium Level 4.9 4.8 3.9 Chloride Level 106 106 98 Carbon Dioxide Level 20.0 22.2 24.8 Anion Gap 22 18 15 Blood Urea Nitrogen 21 23 28 Creatinine 2.93 3.02 3.41 Estimat Glomerular Filtration 19 18 16 Rate Random Glucose 164 175 204 Lactic Acid Level 7.2 4.6 Calcium Level 5.3 LESS THAN 5.0 LESS THAN 5.0 Protein Corrected Calcium 6.3 6.3 6.7 Total Bilirubin 1.0 0.7 0.8 Aspartate Amino Transf 6188 6693 5374 (AST/SGOT) Alanine Aminotransferase 1026 952 838 (ALT/SGPT) Alkaline Phosphatase 82 54 41 Total Creatine Kinase 272036 GREATER THAN GREATER THAN 64268 05583 Creatine Kinase MB 1403.8 940.4 605.8 Creatine Kinase MB % 1.4 0.0 0.0 Troponin I 7.18 6.60 5.65 Total Protein 4.7 3.8 3.2 Albumin 2.3 1.8 1.5 White Blood Count 11.6 Red Blood Count 3.02 Hemoglobin 11.1 7.9 Hematocrit 31.9 22.9 Mean Corpuscular Volume 105.6 Mean Corpuscular Hemoglobin 36.7 Mean Corpuscular Hemoglobin 34.7 Concent Red Cell Distribution Width 13.3 Platelet Count 116 Mean Platelet Volume 8.5 Neutrophils (%) (Auto) 93.8 Lymphocytes (%) (Auto) 4.8 Monocytes (%) (Auto) 1.2 Eosinophils (%) (Auto) 0.0 Basophils (%) (Auto) 0.2 Neutrophils # (Auto) 10.9 Lymphocytes # (Auto) 0.6 Monocytes # (Auto) 0.1 Eosinophils # (Auto) 0.0 Basophils # (Auto) 0.0 CBC Comment AUTO DIFF Differential Comment AUTO DIFF CONFIRMED Platelet Estimate LOW Platelet Morphology Comment NORMAL Red Cell Morphology Comment NORMAL Magnesium Level 1.4 1.4 Prothrombin Time 18.3 Prothromb Time International 1.6 Ratio Activated Partial 39.0 Thromboplast Time Fibrinogen 89 Phosphorus Level 4.9 Ammonia 115 Human Chorionic Gonadotropin, LESS THAN 1 Quant Complement C3 19 Complement C4 5 Blood Type O POSITIVE Antibody Screen NEGATIVE Blood Bank Comment Test 07/26/16 10:35 Crossmatch Leukocyte-Reduced Red Blood Cells Blood Bank Comment Date/Time Procedure Status Source Growth 07/25/16 16:10 Urine Culture Received Urine Random Urine Pending 07/25/16 14:25 Aerobic Blood Culture - Preliminary Resulted Blood Peripheral NO GROWTH IN 1 DAY 07/25/16 14:25 Anaerobic Blood Culture - Preliminary Resulted Blood Peripheral NO GROWTH IN 1 DAY Result Diagram: 07/26/16 0847 07/26/16 0847 Imaging Last Impressions Chest X-Ray 07/26/16 0000 Signed Impressions: Service Date/Time: Tuesday, July 26, 2016 04:44 - CONCLUSION: No acute cardiopulmonary disease. Kathy Berry MD Lower Extremity CT 07/25/16 0000 Signed Impressions: Service Date/Time: Monday, July 25, 2016 18:54 - CONCLUSION: Extensive nonspecific myositis of the right thigh, also involves gluteus medius and minimus proximally and at least medial gastrocnemius below the knee. Infectious/inflammatory and ischemic etiologies would be in the differential. No gas bubbles are seen to substantiate necrotizing fasciitis. No organized/drainable abscess. Glenroy Sheffield MD Hip and Pelvis X-Ray 07/25/16 0000 Signed Impressions: Service Date/Time: Monday, July 25, 2016 16:52 - CONCLUSION: Intact pelvis and right hip. Nonspecific surrounding soft tissue swelling Glenroy Sheffield MD Head CT 07/25/16 0000 Signed Impressions: Service Date/Time: Monday, July 25, 2016 14:38 - CONCLUSION: Negative noncontrast head CT. Glenroy Sheffield MD Chest CT 07/25/16 0000 Signed Impressions: Service Date/Time: Monday, July 25, 2016 16:37 - CONCLUSION: Focal dense consolidation right middle lobe, nonspecific but most likely infectious or inflammatory. Also a 3 mm right basilar pulmonary nodule Followup noncontrast chest CT in a few months recommended to confirm resolution/stability. Glenroy Sheffield MD Abdomen/Pelvis CT 07/25/16 0000 Signed Impressions: Service Date/Time: Monday, July 25, 2016 16:37 - CONCLUSION: 1. Fatty liver and 21 mm right ovarian cyst. Otherwise, no acute abnormality seen within the abdomen or pelvis. 2. Swollen, heterogeneous right hip musculature, primarily gluteus medius and minimus, rectus femoris and vastus lateralis and the adductor muscles. This is nonspecific but suggests a subacute hematoma of these structures. Nothing organized/measurable. 3. Chronic L5 pars defects with grade 2 L5/S1 spondylolisthesis. Glenroy Sheffield MD Assessment and Plan Assessment and Plan R thigh myositis involving multiple muscel groups compartment sd sp fasciotomy Illicit drug OD Sepsis (lactic acidosis, leukocytosis) suspected vs other condition ? UTI cont zosyn, vanco for now fu P clx Discussed Condition With Beatrice Deutsch,Kimi Mejia MD Jul 26, 2016 12:01
[2016-07-26] MEDS ORDERED: MIDAZOLAM HCL 2 MG/2 ML VIAL ONE (12:40)
[2016-07-26] MEDS ORDERED: fentaNYL CITRATE 250 MCG/5 ML AMP ONE (12:40)
--- NOTE | 2016-07-26 12:53 | RADRPT ---
EXAM DATE/TIME: 07/26/2016 10:21 [facility] COMPARISON: No previous studies available for comparison. INDICATIONS : Elevated LFTs and creatinine. MEDICAL HISTORY : Polysubstance abuse. Renal failure. Possible acetaminophin overdose. SURGICAL HISTORY : Right thigh fasciotomy. ENCOUNTER: Initial ACUITY: 1 day PAIN SCORE: 6/10 LOCATION: Abdomen. MEASUREMENTS: LIVER: 14.2 cm length COMMON DUCT: 4 mm RIGHT KIDNEY: 11.1 x 5.2 x 4.4 cm LEFT KIDNEY: 9.2 x 5.3 x 6.9 cm SPLEEN: 10.4 cm length AORTA: 1.4cm maximal FINDINGS: LIVER: Normal echotexture without focal lesion or ductal dilatation. COMMON DUCT: No intraluminal mass or stone visualized. GALLBLADDER: Contains no stones, demonstrates no wall thickening or pericholecystic fluid. PANCREAS: The head of the pancreas is obscured by overlying bowel gas. Otherwise sonographically normal. RIGHT KIDNEY: No hydronephrosis, stone or mass. Small amount of free fluid adjacent to the lower pole. LEFT KIDNEY: No hydronephrosis, stone or mass. Small amount of free fluid adjacent to the lower pole. SPLEEN: No focal lesion. AORTA: Non aneurysmal. Distal aorta cannot be identified due to overlying bowel gas. IVC: Within normal limits. Distal IVC could not be identified CONCLUSION: 1. Small amount of free fluid adjacent to the lower poles of both kidneys. 2. Obscuration of the head of the pancreas, distal IVC and aorta due to overlying bowel gas. 3. Otherwise negative. Judson Cee MD on July 26, 2016 at 12:47 Board Certified Radiologist. This report was verified electronically.
--- NOTE | 2016-07-26 14:02 | HHI.GIFU ---
GI Follow-up Note Consult Follow-up Off floor in OR, will return Entered by: Sangeeta Warren Jul 26, 2016 14:02
[2016-07-26] MEDS ORDERED: DO NOT ADM ANY ANTICOAGULANT DRUGS XX PRN (14:44)
[2016-07-26] MEDS ORDERED: *MEPERIDINE 25 MG INJ VIAL PERIprocedural Use ONLY ONE (14:44)
[2016-07-26] MEDS ORDERED: PHARMACY ORDERED LAB XX ONE (15:00)
[2016-07-26] MEDS: LACTULOSE SYRUP 20 GM/30 ML CUP PO SCH ×2 (15:44→21:41)
[2016-07-26] MEDS: RIFAXIMIN 550 MG TAB PO SCH ×2 (15:44→21:42)
--- NOTE | 2016-07-26 16:03 | EC ---
Study Study Date:07/26/2016 STUDY CONCLUSIONS SUMMARY - Left ventricle: The cavity size was normal. Wall thickness was normal. Systolic function was normal. The estimated ejection fraction was in the range of 60% to 65%. Wall motion was normal; there were no regional wall motion abnormalities. - Aortic valve: Valve area: 2.82cm^2 (Vmax). If LV function is below 40, please consider prescribing an ACEI or ARB or document rationale for non-use. PROCEDURE DATA STUDY STATUS: Elective. Procedure: Transthoracic echocardiography. Image quality was good. Scanning was performed from the parasternal, apical, and subcostal acoustic windows. Study completion: The patient tolerated the procedure well. Transthoracic echocardiography. M-mode, complete 2D, complete spectral Doppler, and color Doppler. Height: Height: 65in. Weight: Weight: 131.7lb. Body mass index: BMI: 22kg/m^2. Body surface area: BSA: 1.66m^2. Patient status: Inpatient. CARDIAC ANATOMY LEFT VENTRICLE: The cavity size was normal. Wall thickness was normal. Systolic function was normal. The estimated ejection fraction was in the range of 60% to 65%. Wall motion was normal; there were no regional wall motion abnormalities. AORTIC VALVE: Trileaflet; normal thickness leaflets. Doppler: Transvalvular velocity was within the normal range. There was no stenosis. No regurgitation. Valve area: 2.82cm^2 (Vmax). Indexed valve area: 1.7cm^2/m^2 (Vmax). AORTA: Aortic root: The aortic root was normal in size. MITRAL VALVE: Structurally normal valve. Doppler: Transvalvular velocity was within the normal range. There was no evidence for stenosis. No regurgitation. Peak gradient: 3mm Hg (D). LEFT ATRIUM: The atrium was normal in size. RIGHT VENTRICLE: The cavity size was normal. Wall thickness was normal. PULMONIC VALVE: Doppler: Transvalvular velocity was within the normal range. There was no evidence for stenosis. No regurgitation. TRICUSPID VALVE: Structurally normal valve. Doppler: Transvalvular velocity was within the normal range. Trace regurgitation. PULMONARY ARTERY: The main pulmonary artery was normal-sized. Systolic pressure was within the normal range. RIGHT ATRIUM: The atrium was normal in size. PERICARDIUM: There was no pericardial effusion. SYSTEMIC VEINS: Inferior vena cava: The vessel was normal in size. Patient weight: 131.7lb _Ejection fraction:_ 65-75% _Fractional shortening:_ 32% up to 5Kg 5-11.5Kg 11.6-22.9Kg 23-45Kg 45-57Kg Aortic Root 7-13 <17 13-22 17-27 17-27 LA diam 6-13 <23 24-38 33-47 37-40 RVID 10-17 7-15 7-15 7-18 8-17 LVIDd 12-22 <32 24-38 33-47 37-40 LVPW 2-4 3-6 5-7 6-8 7-8 IVS 2-4 3-6 5-7 6-8 7-8 BASIC MEASUREMENTS ADULT NORMAL Left ventricle LV internal dimension, ED, chordal *38.6 mm 43-52 level, PLAX LV internal dimension, ES, chordal 24.3 mm 23-38 level, PLAX Fractional shortening, chordal level, 37 % >29 PLAX LV posterior wall thickness, ED 7.37 mm IVS/LVPW ratio, ED 1.28 <1.3 Ventricular septum Septal thickness, ED 9.43 mm Aortic valve Leaflet separation *14 mm 15-26 Right ventricle RV internal dimension, ED, PLAX *16 mm 19-38 BASIC MEASUREMENTS ADULT NORMAL Aortic valve Leaflet separation *14 mm 15-26 Aorta Root diameter, ED 22 mm 20-37 Left atrium Anterior-posterior dimension, ES 30 mm 19-40 Anterior-posterior dimension index, ES 1.81 cm/m^2 <2.2 LA/aortic root ratio 1.36 DOPPLER MEASUREMENTS ADULT NORMAL Main pulmonary artery Pressure, S 17 mm Hg =30 Pressure, ED 20 mm Hg Aortic valve Peak velocity, S 147 cm/s Valve area, Vmax 2.82 cm^2 Valve area index, Vmax 1.7 cm^2/m^2 Mitral valve Peak E-wave velocity 89.3 cm/s Peak A-wave velocity 84.9 cm/s Deceleration time 194 ms 150-230 Peak gradient, D 3 mm Hg Peak E/A ratio 1.1 Tricuspid valve Regurgitant peak velocity 157 cm/s Peak RV-RA gradient, S 10 mm Hg Maximal regurgitant velocity 157 cm/s Systemic veins Estimated CVP 10 mm Hg Right ventricle RV pressure, S 20 mm Hg <30 Pulmonic valve Peak velocity, S 90.9 cm/s Regurgitant velocity, ED 159 cm/s LEGEND: Mean values are shown as u=mean value. Asterisk (*) aguilar values outside specified normal range. Prepared and signed by Herman Otero [id number]
--- NOTE | 2016-07-26 17:50 | PD.CONS ---
HPI History of Present Illness This is a 30 year old female patient who was brought to the ER for evaluation after she was found in bed with her boyfriend who reportedly overdosed on drugs the night before. She had significantly elevated LFTs on admission with T. Bili 0.9, AST 6641, ALT 1319, Alk PHosph 177. Toxicology report revealed Acetaminophen less than 2.0, Salicylates less than 1.7, Ethyl alcohol 28, toxicology screen negative- although the patient reports that she does use pills and smoke marijuana. She was also noted to have rhabdomyolysis with a CPK 133,434. She was noted to compartment syndrome of her right thigh and subsequently underwent a fasciotomy with wound vac placement earlier today. GI was consulted for further evaluation of elevated liver enzymes. She denies any known history of liver disease. She does drink 3-4 alcoholic beverages per day. She denies any nausea, vomiting, abdominal pain. She denies any known family hx of liver disease. (Sangeeta Dixon) PFSH Past Medical History Polysubstance abuse Past Surgical History Jackson teeth extraction (Sangeeta Dixon) Coded Allergies: No Known Allergies (Unverified , 12/10/14) Medications Allergies Coded Allergies Type Severity Reaction Last Updated Verified No Known Allergies 12/10/14 No Active Scripts Medications Dose Route/Sig Days Date Category No Active Prescriptions or Reported Medications Rx Family History Mother had leukemia as a child Social History Smokes 1ppd Drinks 3-4 etoh drinks per day + Pill abuse and MJ use. (Sangeeta Dixon) Review of Systems Constitutional: COMPLAINS OF: Fatigue Gastrointestinal: DENIES: Abdominal pain, Nausea, Vomiting Musculoskeletal: COMPLAINS OF: Muscle aches, Stiffness Psychiatric: COMPLAINS OF: Confusion ROS difficult to obtain (Sangeeta Dixon) GI Exam Vitals I&O Vital Signs Date Time Temp Pulse Resp B/P Pulse Ox O2 Delivery O2 Flow Rate FiO2 07/26/16 16:00 90 07/26/16 16:00 97.7 92 11 125/82 100 07/26/16 15:15 97.9 96 12 130/88 100 Nasal Cannula 3 07/26/16 15:00 94 12 131/85 100 Nasal Cannula 3 07/26/16 14:45 110 12 145/86 99 Nasal Cannula 3 07/26/16 14:42 97.9 120 12 124/83 96 Nasal Cannula 3 07/26/16 13:00 98.7 18 20 137/86 100 07/26/16 12:25 98.5 105 20 123/74 100 07/26/16 12:10 98.9 100 20 122/67 100 07/26/16 11:30 98.1 106 20 120/64 100 07/26/16 10:00 122 07/26/16 08:00 97.8 116 16 101/53 100 07/26/16 08:00 116 07/26/16 07:57 100 21 07/26/16 06:00 115 07/26/16 06:00 115 13 99/57 95 07/26/16 05:00 114 14 87/53 100 07/26/16 04:00 98.1 111 13 95/54 100 07/26/16 04:00 111 07/26/16 03:00 117 14 97/55 100 07/26/16 02:00 105 12 98/59 98 07/26/16 02:00 105 07/26/16 00:00 116 07/26/16 00:00 98.0 116 21 108/62 100 07/25/16 23:00 99.2 109 14 104/47 99 Nasal Cannula 3 99 07/25/16 22:00 98.9 123 14 124/75 99 Nasal Cannula 3 99 07/25/16 21:45 116 15 113/67 99 Nasal Cannula 3 99 07/25/16 21:15 121 17 141/72 98 Nasal Cannula 3 98 07/25/16 21:09 98.3 113 16 154/92 97 Nasal Cannula 3 97 07/25/16 20:00 113 07/25/16 19:00 97.2 113 20 153/63 95 07/25/16 17:57 100 Nasal Cannula 2.00 I/O 07/25/16 07/25/16 07/25/16 07/26/16 07/26/16 07/26/16 06:59 14:59 22:59 06:59 14:59 22:59 Intake Total 1100 ml 4951 ml 3358 ml Output Total 100 ml 950 ml 255 ml Balance 1000 ml 4001 ml 3103 ml Intake Oral 0 ml 530 ml IV Total 2321 ml 1723 ml Albumin 100 ml FFP 227 ml Cryoprecipitate 308 ml Other 1100 ml 2100 ml 1000 ml Output Urine Total 0 ml 850 ml 250 ml Estimated Blood Loss 100 ml 100 ml 5 ml # Bowel Movements 0 Imaging Last Impressions Chest X-Ray 07/26/16 0000 Signed Impressions: Service Date/Time: Tuesday, July 26, 2016 04:44 - CONCLUSION: No acute cardiopulmonary disease. Kathy Berry MD Abdomen Ultrasound 07/26/16 0000 Signed Impressions: Service Date/Time: Tuesday, July 26, 2016 10:21 - CONCLUSION: 1. Small amount of free fluid adjacent to the lower poles of both kidneys. 2. Obscuration of the head of the pancreas, distal IVC and aorta due to overlying bowel gas. 3. Otherwise negative. Judson Cee MD Lower Extremity CT 07/25/16 0000 Signed Impressions: Service Date/Time: Monday, July 25, 2016 18:54 - CONCLUSION: Extensive nonspecific myositis of the right thigh, also involves gluteus medius and minimus proximally and at least medial gastrocnemius below the knee. Infectious/inflammatory and ischemic etiologies would be in the differential. No gas bubbles are seen to substantiate necrotizing fasciitis. No organized/drainable abscess. Glenroy Sheffield MD Hip and Pelvis X-Ray 07/25/16 0000 Signed Impressions: Service Date/Time: Monday, July 25, 2016 16:52 - CONCLUSION: Intact pelvis and right hip. Nonspecific surrounding soft tissue swelling Glenroy Sheffield MD Head CT 07/25/16 0000 Signed Impressions: Service Date/Time: Monday, July 25, 2016 14:38 - CONCLUSION: Negative noncontrast head CT. Glenroy Sheffield MD Chest CT 07/25/16 0000 Signed Impressions: Service Date/Time: Monday, July 25, 2016 16:37 - CONCLUSION: Focal dense consolidation right middle lobe, nonspecific but most likely infectious or inflammatory. Also a 3 mm right basilar pulmonary nodule Followup noncontrast chest CT in a few months recommended to confirm resolution/stability. Glenroy Sheffield MD Abdomen/Pelvis CT 07/25/16 0000 Signed Impressions: Service Date/Time: Monday, July 25, 2016 16:37 - CONCLUSION: 1. Fatty liver and 21 mm right ovarian cyst. Otherwise, no acute abnormality seen within the abdomen or pelvis. 2. Swollen, heterogeneous right hip musculature, primarily gluteus medius and minimus, rectus femoris and vastus lateralis and the adductor muscles. This is nonspecific but suggests a subacute hematoma of these structures. Nothing organized/measurable. 3. Chronic L5 pars defects with grade 2 L5/S1 spondylolisthesis. Glenroy Sheffiedl MD Laboratory Test 07/25/16 07/25/16 07/25/16 07/25/16 17:45 18:15 18:20 19:16 Blood Gas Puncture Site RT RADIAL Blood Gas Patient Temperature 98.6 Blood Gas HCO3 19 mmol/L Blood Gas Base Excess -6.7 mmol/L Blood Gas Oxygen Saturation 96 % Arterial Blood pH 7.30 Arterial Blood Partial 38 mmHg Pressure CO2 Arterial Blood Partial 130 mmHg Pressure O2 Arterial Blood Oxygen Content 18.3 Vol % Arterial Blood 1.3 % Carboxyhemoglobin Arterial Blood Methemoglobin 1.0 % Blood Gas Hemoglobin 13.4 G/DL Blood Gas Liter Flow 2 L/M Nasal Screen MRSA (PCR) NEGATIVE Lactic Acid Level 7.2 mmol/L 7.2 mmol/L Sodium Level 148 MEQ/L Potassium Level 4.9 MEQ/L Chloride Level 106 MEQ/L Carbon Dioxide Level 20.0 MEQ/L Anion Gap 22 MEQ/L Blood Urea Nitrogen 21 MG/DL Creatinine 2.93 MG/DL Estimat Glomerular Filtration 19 ML/MIN Rate Random Glucose 164 MG/DL Calcium Level 5.3 MG/DL Protein Corrected Calcium 6.3 MG/DL Total Bilirubin 1.0 MG/DL Aspartate Amino Transf 6188 U/L (AST/SGOT) Alanine Aminotransferase 1026 U/L (ALT/SGPT) Alkaline Phosphatase 82 U/L Total Creatine Kinase 126097 U/L Creatine Kinase MB 1403.8 NG/ML Creatine Kinase MB % 1.4 % Troponin I 7.18 NG/ML Total Protein 4.7 GM/DL Albumin 2.3 GM/DL Hepatitis A IgM Antibody NEGATIVE Hepatitis B Surface Antigen NEGATIVE Hepatitis B Core IgM Antibody NEGATIVE Hepatitis C Antibody NEGATIVE Test 07/26/16 07/26/16 07/26/16 07/26/16 02:35 08:47 10:25 10:35 White Blood Count 11.6 TH/MM3 Red Blood Count 3.02 MIL/MM3 Hemoglobin 11.1 GM/DL 7.9 GM/DL Hematocrit 31.9 % 22.9 % Mean Corpuscular Volume 105.6 FL Mean Corpuscular Hemoglobin 36.7 PG Mean Corpuscular Hemoglobin 34.7 % Concent Red Cell Distribution Width 13.3 % Platelet Count 116 TH/MM3 Mean Platelet Volume 8.5 FL Neutrophils (%) (Auto) 93.8 % Lymphocytes (%) (Auto) 4.8 % Monocytes (%) (Auto) 1.2 % Eosinophils (%) (Auto) 0.0 % Basophils (%) (Auto) 0.2 % Neutrophils # (Auto) 10.9 TH/MM3 Lymphocytes # (Auto) 0.6 TH/MM3 Monocytes # (Auto) 0.1 TH/MM3 Eosinophils # (Auto) 0.0 TH/MM3 Basophils # (Auto) 0.0 TH/MM3 CBC Comment AUTO DIFF Differential Comment AUTO DIFF CONFIRMED Platelet Estimate LOW Platelet Morphology Comment NORMAL Red Cell Morphology Comment NORMAL Sodium Level 146 MEQ/L 138 MEQ/L Potassium Level 4.8 MEQ/L 3.9 MEQ/L Chloride Level 106 MEQ/L 98 MEQ/L Carbon Dioxide Level 22.2 MEQ/L 24.8 MEQ/L Anion Gap 18 MEQ/L 15 MEQ/L Blood Urea Nitrogen 23 MG/DL 28 MG/DL Creatinine 3.02 MG/DL 3.41 MG/DL Estimat Glomerular Filtration 18 ML/MIN 16 ML/MIN Rate Random Glucose 175 MG/DL 204 MG/DL Lactic Acid Level 4.6 mmol/L Calcium Level LESS THAN 5.0 LESS THAN 5.0 MG/DL MG/DL Protein Corrected Calcium 6.3 MG/DL 6.7 MG/DL Magnesium Level 1.4 MG/DL 1.4 MG/DL Total Bilirubin 0.7 MG/DL 0.8 MG/DL Aspartate Amino Transf 6693 U/L 5374 U/L (AST/SGOT) Alanine Aminotransferase 952 U/L 838 U/L (ALT/SGPT) Alkaline Phosphatase 54 U/L 41 U/L Total Creatine Kinase GREATER THAN GREATER THAN 96351 U/L 00247 U/L Creatine Kinase MB 940.4 NG/ML 605.8 NG/ML Creatine Kinase MB % 0.0 % 0.0 % Troponin I 6.60 NG/ML 5.65 NG/ML Total Protein 3.8 GM/DL 3.2 GM/DL Albumin 1.8 GM/DL 1.5 GM/DL Prothrombin Time 18.3 SEC Prothromb Time International 1.6 RATIO Ratio Activated Partial 39.0 SEC Thromboplast Time Fibrinogen 89 mg/dL Phosphorus Level 4.9 MG/DL Ammonia 115 MCMOL/L Human Chorionic Gonadotropin, LESS THAN 1 Quant MIU/ML Anti-Nuclear Antibody Screen NEG Complement C3 19 MG/DL Complement C4 5 MG/DL Blood Type O POSITIVE Antibody Screen NEGATIVE Blood Bank Comment Crossmatch Leukocyte-Reduced Red Blood Cells Test 07/26/16 07/26/16 07/26/16 15:57 15:59 16:15 Lactic Acid Level 3.9 mmol/L Random Vancomycin Level 11.0 COMMENT Urine pH 6.5 Urine Eosinophils NONE SEEN /HPF Urine Random Creatinine 57.9 MG/DL Urine Random Sodium 66 MEQ/L Date/Time Procedure Status Source Growth 07/25/16 16:10 Urine Culture - Preliminary Resulted Urine Random Urine Gram Negative Ramses 07/25/16 14:25 Aerobic Blood Culture - Preliminary Resulted Blood Peripheral NO GROWTH IN 1 DAY 07/25/16 14:25 Anaerobic Blood Culture - Preliminary Resulted Blood Peripheral NO GROWTH IN 1 DAY Physical Examination HEENT: Normocephalic; atraumatic; no jaundice. Throat is clear. NECK: Neck is supple, no JVD, no lymphadenopathy. CHEST: CTA CARDIAC: RRR. ABDOMEN: Soft, nondistended, nontender; no hepatosplenomegaly; bowel sounds are present in all four quadrants. EXTREMITIES: Wound vac to lateral aspect right thigh SKIN: Normal; no rash; no jaundice. 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 Abdomen Ultrasound (07/26/16)----> 1. Small amount of free fluid adjacent to the lower poles of both kidneys. 2. Obscuration of the head of the pancreas, distal IVC and aorta due to overlying bowel gas. 3. Otherwise negative. Abdomen/Pelvis CT (07/25/16)----> 1. Fatty liver and 21 mm right ovarian cyst. Otherwise, no acute abnormality seen within the abdomen or pelvis. 2. Swollen, heterogeneous right hip musculature, primarily gluteus medius and minimus, rectus femoris and vastus lateralis and the adductor muscles. This is nonspecific but suggests a subacute hematoma of these structures. Nothing organized/measurable. 3. Chronic L5 pars defects with grade 2 L5/S1 spondylolisthesis. Toxicology report---- > Acetaminophen less than 2.0, Salicylates less than 1.7, Ethyl alcohol 28, toxicology screen negative- although the patient reports that she does use pills and smoke marijuana. CPK 133,434. Hepatitis panel negative. She does have documented episodes of hypotension. Will order liver work up, avoid hepatotoxins, avoid hypotension. T. Bili 0.8, AST 5374, ALT 838, Alk Phosph 41. - AMS, IMPROVED. Xifaxan, Lactulose. - Rhabdomyolysis. IVF per [facility], CPK > 14,000. - Compartment syndrome, s/p fasciotomy, wound vac placement. - Sepsis, elevated lactic acid, likely t/t right thigh compartment syndrome. - Coagulopathy, ? DIC per [facility] - Anemia, 7.9/22.9. - CARLITO, creat 2.97. Plan: - Clear liquids - Liver workup - Monitor LFTs, coag's, Ammonia - Avoid hypotension - Avoid hepatoxins - Supportive care - Further recommendations to follow based on results of above - Pt seen and examined by Dr. Pineda and myself and this note is written on his behalf - (Sangeeta Dixon) Physician Comments Patient seen and examined Agree with above Continue with current supportive care Monitor labs Workup in progress (Karri Pineda MD) Sangeeta Dixon Jul 26, 2016 17:50 Karri Pineda MD Jul 26, 2016 20:57
--- NOTE | 2016-07-26 20:13 | PD.CAR.PN ---
CVT Progress Note Subjective/Hospital Course: Patient with clinical findings of medial and lateral thigh compartment syndrome For OR now Thanks Delaney 07/26/16 Patient underwent yesterday and medial and lateral fasciotomy of the thigh debridement Today she underwent washout the both, closure of the medial fasciotomy skin and wound VAC placement on lateral fasciotomy The lateral fasciotomy will need wound VAC for but 2 weeks and then this can be covered with the partial-thickness skin graft by plastic surgery Objective: Vital Signs Date Time Temp Pulse Resp B/P Pulse Ox O2 Delivery O2 Flow Rate FiO2 07/26/16 18:00 97 07/26/16 16:00 90 07/26/16 16:00 97.7 92 11 125/82 100 07/26/16 15:15 97.9 96 12 130/88 100 Nasal Cannula 3 07/26/16 15:00 94 12 131/85 100 Nasal Cannula 3 07/26/16 14:45 110 12 145/86 99 Nasal Cannula 3 07/26/16 14:42 97.9 120 12 124/83 96 Nasal Cannula 3 07/26/16 13:00 98.7 18 20 137/86 100 07/26/16 12:25 98.5 105 20 123/74 100 07/26/16 12:10 98.9 100 20 122/67 100 07/26/16 11:30 98.1 106 20 120/64 100 07/26/16 10:00 122 07/26/16 08:00 97.8 116 16 101/53 100 07/26/16 08:00 116 07/26/16 07:57 100 21 07/26/16 06:00 115 07/26/16 06:00 115 13 99/57 95 07/26/16 05:00 114 14 87/53 100 07/26/16 04:00 98.1 111 13 95/54 100 07/26/16 04:00 111 07/26/16 03:00 117 14 97/55 100 07/26/16 02:00 105 12 98/59 98 07/26/16 02:00 105 07/26/16 00:00 116 07/26/16 00:00 98.0 116 21 108/62 100 07/25/16 23:00 99.2 109 14 104/47 99 Nasal Cannula 3 99 07/25/16 22:00 98.9 123 14 124/75 99 Nasal Cannula 3 99 07/25/16 21:45 116 15 113/67 99 Nasal Cannula 3 99 07/25/16 21:15 121 17 141/72 98 Nasal Cannula 3 98 07/25/16 21:09 98.3 113 16 154/92 97 Nasal Cannula 3 97 Labs: Laboratory Tests Test 07/26/16 07/26/16 07/26/16 07/26/16 08:47 10:25 10:35 15:57 Hemoglobin 7.9 GM/DL (11.6-15.3) Hematocrit 22.9 % (35.0-46.0) Prothrombin Time 18.3 SEC (9.8-11.6) Prothromb Time International 1.6 RATIO Ratio Activated Partial 39.0 SEC Thromboplast Time (24.3-30.1) Fibrinogen 89 mg/dL (227-377) Sodium Level 138 MEQ/L (136-145) Potassium Level 3.9 MEQ/L (3.5-5.1) Chloride Level 98 MEQ/L (98-107) Carbon Dioxide Level 24.8 MEQ/L (21.0-32.0) Anion Gap 15 MEQ/L (5-15) Blood Urea Nitrogen 28 MG/DL (7-18) Creatinine 3.41 MG/DL (0.50-1.00) Estimat Glomerular Filtration 16 ML/MIN (>89) Rate Random Glucose 204 MG/DL (74-106) Calcium Level LESS THAN 5.0 MG/DL (8.5-10.1) Protein Corrected Calcium 6.7 MG/DL (8.5-10.1) Phosphorus Level 4.9 MG/DL (2.5-4.9) Magnesium Level 1.4 MG/DL (1.5-2.5) Total Bilirubin 0.8 MG/DL (0.2-1.0) Aspartate Amino Transf 5374 U/L (AST/SGOT) (15-37) Alanine Aminotransferase 838 U/L (10-53) (ALT/SGPT) Alkaline Phosphatase 41 U/L (45-117) Ammonia 115 MCMOL/L (11-32) Total Creatine Kinase GREATER THAN 14134 U/L (26-192) Creatine Kinase MB 605.8 NG/ML (0.5-3.6) Creatine Kinase MB % 0.0 % (0.0-4.0) Troponin I 5.65 NG/ML (0.02-0.05) Total Protein 3.2 GM/DL (6.4-8.2) Albumin 1.5 GM/DL (3.4-5.0) Human Chorionic Gonadotropin, LESS THAN 1 Quant MIU/ML (0-5) Anti-Nuclear Antibody Screen NEG (NEG) Complement C3 19 MG/DL (90-180) Complement C4 5 MG/DL (10-40) Blood Type O POSITIVE Antibody Screen NEGATIVE Blood Bank Comment Crossmatch Leukocyte-Reduced Red Blood Cells Lactic Acid Level 3.9 mmol/L (0.4-2.0) Test 07/26/16 07/26/16 15:59 16:15 Random Vancomycin Level 11.0 COMMENT Urine pH 6.5 (5.0-8.5) Urine Eosinophils NONE SEEN /HPF (NONE SEEN) Urine Random Creatinine 57.9 MG/DL Urine Random Sodium 66 MEQ/L Result Diagram: 07/26/16 0847 07/26/16 0847 Saw Turner MD Jul 26, 2016 20:13
[2016-07-26 20:34] LABS: AUTOMATED NEUTROPHIL # 4.5 TH/MM3 (1.8-7.7); BASOPHIL % 0.1 % (0.0-2.0); LYMPH % 6.1 % (9.0-44.0); LYMPHOCYTE # 0.3 TH/MM3 (1.0-4.8); MEAN CELL VOLUME 90.8 FL (80.0-100.0); MEAN CORPUSCULAR HEMOGLOBIN 32.6 PG (27.0-34.0); MONO % 2.1 % (0.0-8.0); NEUT % 91.7 % (16.0-70.0); PLATELET COUNT 39 TH/MM3 (150-450); RED BLOOD COUNT 1.81 MIL/MM3 (4.00-5.30); RED CELL DISTRIBUTION WIDTH 18.6 % (11.6-17.2); WHITE BLOOD COUNT 4.9 TH/MM3 (4.0-11.0)
[2016-07-26 20:40] LABS: HEMO FLAGS AUTO DIFF
[2016-07-26 20:45] LABS: HEMATOCRIT 16.4 % (35.0-46.0)
[2016-07-26 20:55] LABS: INTERNATIONAL NORMALIZED RATIO 1.3 RATIO; PROTHROMBIN TIME - PATIENT 15.1 SEC (9.8-11.6)
[2016-07-26 21:07] LABS: ALKALINE PHOSPHATASE 30 U/L (45-117); ALT (GPT) 468 U/L (10-53); ANION GAP 10 MEQ/L (5-15); AST (GOT) 2825 U/L (15-37); BICARBONATE 31.9 MEQ/L (21.0-32.0); BLOOD UREA NITROGEN 26 MG/DL (7-18); CHLORIDE 95 MEQ/L (98-107); FERRITIN 400 NG/ML (8-252); GLOMERULAR FILTRATION RATE 15 ML/MIN (>89); POTASSIUM 3.8 MEQ/L (3.5-5.1); SODIUM (NA) 137 MEQ/L (136-145); TOTAL BILIRUBIN ADULT 2.2 MG/DL (0.2-1.0); TRANSFERRIN IRON PROFILE 93 MG/DL (200-360)
[2016-07-26 21:08] LABS: PLATELET ESTIMATE SMEAR LOW (NORMAL); PLATELET MORPHOLOGY NORMAL (NORMAL); SCAN/DIFF AUTO DIFF CONFIRMED
[2016-07-26 21:11] LABS: CALCIUM-PROTEIN CORRECTED 6.1 MG/DL (8.5-10.1)
[2016-07-26] MEDS: VANCOMYCIN 1,000 MG/NS 250 ML IV SCH ×2 (21:40)
[2016-07-26] MEDS: MORPHINE SULFATE 4 MG/ML INJ IV PRN (21:41)
[2016-07-26 21:47] LABS: MEAN CELL VOLUME 92.1 FL (80.0-100.0); MEAN CORPUSCULAR HEMOGLOBIN 32.3 PG (27.0-34.0); PLATELET COUNT 41 TH/MM3 (150-450); RED BLOOD COUNT 1.87 MIL/MM3 (4.00-5.30); RED CELL DISTRIBUTION WIDTH 18.5 % (11.6-17.2); REVIEW FLAG FINAL
[2016-07-26 21:49] LABS: HEMATOCRIT 17.2 % (35.0-46.0)
[2016-07-26] MEDS: ONDANSETRON HCL 4 MG/2 ML VIAL IV PRN (21:51)
[2016-07-26 21:55] LABS: APTT (PATIENT) 49.9 SEC (24.3-30.1); INTERNATIONAL NORMALIZED RATIO 1.3 RATIO; PROTHROMBIN TIME - PATIENT 14.6 SEC (9.8-11.6)
[2016-07-26 22:27] LABS: POTASSIUM 3.8 MEQ/L (3.5-5.1); TOTAL BILIRUBIN ADULT 2.1 MG/DL (0.2-1.0)
[2016-07-26 22:29] LABS: CALCIUM-PROTEIN CORRECTED 6.2 MG/DL (8.5-10.1)
[2016-07-27] VITALS (18 sets, daily range): BP systolic 116–159; BP diastolic 65–110; PULSE 76–108; RESP 14–22; TEMP 98.4–99; O2SAT 93–100
[2016-07-27] MEDS ORDERED: CALCIUM GLUCONATE INJ 2 GM in SODIUM CHLORIDE 0.9% INJ 100 ML IV ONE ×2 (02:15→23:00)
[2016-07-27] MEDS: RESP: ALBUTEROL 2.5 MG/IPRATROPIUM 0.5 MG NEB (SCH) INH ×4 (03:51→20:47)
[2016-07-27] MEDS ORDERED: CHLORHEXIDINE GLUCONATE 2 % 1 PACK (2 CLOTHS) TOP SCH (04:00)
[2016-07-27] MEDS: CHLORHEXIDINE GLUCONATE 2 % 1 PACK (2 CLOTHS) TOP SCH (04:00)
[2016-07-27] MEDS: SODIUM BICARBONATE 8.4% INJ 150 MEQ in WATER STERILE FOR INJ 850 ML IV SCH ×4 (05:00→23:27)
--- NOTE | 2016-07-27 05:36 | RADRPT ---
EXAM DATE/TIME: 07/27/2016 04:29 [place] COMPARISON: CHEST SINGLE AP, July 26, 2016, 4:44. INDICATIONS : Shortness of breath. MEDICAL HISTORY : None. SURGICAL HISTORY : None. ENCOUNTER: Subsequent ACUITY: 3 days PAIN SCORE: Non-responsive. LOCATION: Bilateral chest FINDINGS: There is mild haziness of the perivascular structures not present previously with questionable slight left lung base atelectasis. The rest of the examination has not significantly changed. CONCLUSION: Possible interval development of mild interstitial process possibly pulmonary edema and slight left lung base atelectasis. Kathy Berry MD on July 27, 2016 at 5:34 Board Certified Radiologist. This report was verified electronically.
[2016-07-27] MEDS: LACTULOSE SYRUP 20 GM/30 ML CUP PO SCH ×3 (05:59→20:54)
[2016-07-27] MEDS: INSULIN NovoLIN REGULAR SUPPLEMENTAL SCALE SQ SCH ×4 (06:58→20:54)
[2016-07-27 07:15] LABS: AUTOMATED NEUTROPHIL # 4.8 TH/MM3 (1.8-7.7); BASOPHIL % 0.1 % (0.0-2.0); HEMATOCRIT 21.9 % (35.0-46.0); LYMPH % 4.5 % (9.0-44.0); LYMPHOCYTE # 0.2 TH/MM3 (1.0-4.8); MEAN CELL VOLUME 87.2 FL (80.0-100.0); MEAN CORPUSCULAR HEMOGLOBIN 31.1 PG (27.0-34.0); MEAN CORPUSCULAR HGB CONC 35.7 % (32.0-36.0); MONO % 3.5 % (0.0-8.0); NEUT % 91.9 % (16.0-70.0); PLATELET COUNT 65 TH/MM3 (150-450); RED BLOOD COUNT 2.51 MIL/MM3 (4.00-5.30); WHITE BLOOD COUNT 5.2 TH/MM3 (4.0-11.0)
[2016-07-27 07:19] LABS: APTT (PATIENT) 40.2 SEC (24.3-30.1); INTERNATIONAL NORMALIZED RATIO 1.2 RATIO; PROTHROMBIN TIME - PATIENT 13.2 SEC (9.8-11.6)
--- NOTE | 2016-07-27 07:22 | HHI.CCPN ---
Subjective Remarks/Hospital Course Patient is a 30-year-old female who was brought to the emergency department by the police for medical clearance. Apparently patient was found in bed with her boyfriend this morning who overdosed on drugs. Patient's boyfriend was was found on the bed. In the ER patient reported numbness to the right side of the body and she admits to snorting some cocaine last night. Patient does not recall any of the events overnight or how she got to the hospital. Her drug screen was essentially negative but she admits to cocaine and heroine use. Patient is a very poor historian. EKG shows probable ST elevation V1 and V2 questionable Brugada syndrome. Initially was hypotensive but responded well to IV fluids. Received total 3 L of fluids but remained tachycardic. There were multiple lab abnormalities. Her CBC showed WBC 18.7 with 92% neutrophils. Her chemistry showed potassium of 6.2, BUN of 17 creatinine 2.97, bicarbonate was only 11.2 with an anion gap of 22. Liver enzymes are markedly elevated AST was 6641 ALT was 1419. Patient was hypocalcemic with 6.6 calcium. Lactate came back very elevated at 9.1. Tylenol level was negative. I believe transaminitis is from shocked liver from hypotension-patient denies hepatitis C. CT of the head was negative I evaluated the patient in the ED. She looks critically ill but did not appear to be in distress at this time. Patient denies chest pain. Her troponin came back at 6.24, CPK pending. 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 CK is highly elevated indicating rhabdomyolysis. Dr. Carter does not think this meets criteria for STEMI as the patient is asymptomatic. I did a bedside echo which showed normal ejection fraction no vegetation on the valve on my evaluation. Patient's right thigh is swollen and tense with severe tenderness, distal pulses are palpable but she appears to have compartment syndrome of right thigh. I spoke with Dr. Turner who will evaluate the patient stat for fasciotomy. Continue IV hydration with bicarb infusion 07/26: Afebrile. Complaining of "tingling" in hands. Complains of being dehydrated. Complains of pain in her right thigh. Resting in bed and appears to be in no acute distress. Subjective 07/27: Afebrile. Mentation much improved this AM. 350 cc urine output past 12 hours. History status post wound VAC placement to the right thigh. Transfuse 2 units PRBCs and 2 pack platelets overnight. A.m. labs all pending. Hemodynamically stable. Objective Vital Signs Date Time Temp Pulse Resp B/P Pulse Ox O2 Delivery O2 Flow Rate FiO2 07/27/16 04:00 96 07/27/16 04:00 98.8 16 145/81 100 07/26/16 20:35 Nasal Cannula 2.00 07/26/16 07:57 21 Intake and Output 07/26/16 07/26/16 07/27/16 08:00 16:00 00:00 Intake Total 4401 ml 3358 ml 1098 ml Output Total 600 ml 255 ml 800 ml Balance 3801 ml 3103 ml 298 ml Result Diagram: 07/26/16 2100 07/26/16 2100 Other Results Microbiology Date/Time Procedure Status Source Growth 07/25/16 16:10 Urine Culture - Preliminary Resulted Urine Random Urine Gram Negative Ramses 07/25/16 14:25 Aerobic Blood Culture - Preliminary Resulted Blood Peripheral NO GROWTH IN 1 DAY 07/25/16 14:25 Anaerobic Blood Culture - Preliminary Resulted Blood Peripheral NO GROWTH IN 1 DAY Imaging Last Impressions Chest X-Ray 07/27/16 0000 Signed Impressions: Service Date/Time: Wednesday, July 27, 2016 04:29 - CONCLUSION: Possible interval development of mild interstitial process possibly pulmonary edema and slight left lung base atelectasis. Kathy Berry MD Abdomen Ultrasound 07/26/16 0000 Signed Impressions: Service Date/Time: Tuesday, July 26, 2016 10:21 - CONCLUSION: 1. Small amount of free fluid adjacent to the lower poles of both kidneys. 2. Obscuration of the head of the pancreas, distal IVC and aorta due to overlying bowel gas. 3. Otherwise negative. Judson Cee MD Lower Extremity CT 07/25/16 0000 Signed Impressions: Service Date/Time: Monday, July 25, 2016 18:54 - CONCLUSION: Extensive nonspecific myositis of the right thigh, also involves gluteus medius and minimus proximally and at least medial gastrocnemius below the knee. Infectious/inflammatory and ischemic etiologies would be in the differential. No gas bubbles are seen to substantiate necrotizing fasciitis. No organized/drainable abscess. Glenroy Sheffield MD Hip and Pelvis X-Ray 07/25/16 0000 Signed Impressions: Service Date/Time: Monday, July 25, 2016 16:52 - CONCLUSION: Intact pelvis and right hip. Nonspecific surrounding soft tissue swelling Glenroy Sheffield MD Head CT 07/25/16 0000 Signed Impressions: Service Date/Time: Monday, July 25, 2016 14:38 - CONCLUSION: Negative noncontrast head CT. Glenroy Sheffield MD Chest CT 07/25/16 0000 Signed Impressions: Service Date/Time: Monday, July 25, 2016 16:37 - CONCLUSION: Focal dense consolidation right middle lobe, nonspecific but most likely infectious or inflammatory. Also a 3 mm right basilar pulmonary nodule Followup noncontrast chest CT in a few months recommended to confirm resolution/stability. Glenroy Sheffield MD Abdomen/Pelvis CT 07/25/16 0000 Signed Impressions: Service Date/Time: Monday, July 25, 2016 16:37 - CONCLUSION: 1. Fatty liver and 21 mm right ovarian cyst. Otherwise, no acute abnormality seen within the abdomen or pelvis. 2. Swollen, heterogeneous right hip musculature, primarily gluteus medius and minimus, rectus femoris and vastus lateralis and the adductor muscles. This is nonspecific but suggests a subacute hematoma of these structures. Nothing organized/measurable. 3. Chronic L5 pars defects with grade 2 L5/S1 spondylolisthesis. Glenroy Sheffield MD Objective Remarks GENERAL: 30-year-old female. Critically ill currently resting in bed in no acute distress SKIN: Warm and dry. No rash. HEAD: Atraumatic. Normocephalic. EYES: Pupils equal and round about 3 mm bilaterally and reactive. No scleral icterus. No injection or drainage. ENT: No nasal bleeding or discharge. Mucous membranes dry and pink NECK: Trachea midline. No JVD. CARDIOVASCULAR: RRR. S1, S2. No S4. Faint 2/6 murmur RESPIRATORY: Few crackles appreciated in bases bilaterally. Breath sounds equal bilaterally. GASTROINTESTINAL: Abdomen soft, non-tender, nondistended. Hepatomegaly. Hypoactive bowel sounds. Abrasions. MUSCULOSKELETAL: Right thigh currently with wound VAC lateral aspect. CHAZ 100 cc serosanguineous drainage. Right hip tender with restricted mobility. NEUROLOGICAL: Awake and alert. Motor grossly within normal limits. Normal speech. Weakness to right leg most likely secondary to pain A/P Assessment and Plan NEURO: Altered mental status Polysubstance abuse with drug overdose including cocaine/heroin Right upper extremity numbness History of THC use EtOH -Watch for alcohol and drug withdrawal, Use PRN Ativan and morphine -Complains of mild numbness of right upper extremity, -CT of the head 07/25 revealed no acute intracranial findings -Started on aspirin for elevated troponin. -Thiamine 100 mg IV daily along with multivitamin and folate daily RESP: Mild Respiratory insufficiency secondary to pneumonia/metabolic acidosis Small consolidation right middle lobe\\ Right basilar pulmonary nodule 3 mm - follow-up CT chest 3 months recommended Ongoing tobaccoism -Nasal cannula oxygen to maintain saturations greater than equal to 92% -Incentive spirometry while awake -CT chest 07/25 revealed right middle lobe infiltrate along with 3 mm right basilar pulmonary nodule. -Chest x-ray 07/26 reveals no significant cardio pulmonary findings -DuoNeb every 6 hours and every 2 hours when necessary -See ID section for broad-spectrum antibiotics CV: Elevated troponin Severe lactic acidosis ST elevation in V1 and V2 -Normal saline IV fluids 5 L bolus and maintenance fluid with bicarbonate infusion at 250 ML per hour -Discussed extensively with Dr. Carter, does not meet criteria for STEMI -Continue aspirin, will not use beta blockers due to cocaine abuse -2d echo revealed EF 60-65%. NRWMA. Lactic acid currently 2.4. Recheck daily until cleared GI: Transaminitis Rhabdomyolysis Hyperammonia -Transaminitis most likely secondary to shock/rhabdo -CT of the abdomen and pelvis shows fatty liver/21 mm right ovarian cyst -Negative hepatitis panel -Tolerating clearn liquid diet -IV Pepcid - Colace/Senokot/MiraLAX for bowel regimen - Xifaxan 550 twice a day/lactulose 30 3 times a day for elevated ammonia. Recheck in AM. /Renal: Acute kidney failure Hyperkalemia - resolved Acute rhabdomyolysis Severe anion gap metabolic acidosis -Continue aggressive fluid resuscitation with 4 L normal saline and maintenance fluid with sterile water with 3 ampules sodium bicarbonate at 150 ML per hour -07/26 renal ultrasound revealed fluid of at poles of bilateral kidneys otherwise negative -Strict intake output. -Urine electrolytes intrinsic renal process/urine eosinophils negative. - Nephrology consult ordered -Repeat CMP at 1800 DIRECTOR RISK: Right ovarian cyst Beta hCG 1 ID: Severe sepsis Gram-negative ramses UTI -Source likely secondary to right thigh compartment syndrome -Continue vancomycin and Zosyn day #3 -Infectious disease consult. Small consolidation in the right middle lobe unlikely to be source of severe sepsis -Rule out infective endocarditis echocardiogram today Pertinent cultures 07/25 - blood cultures 2 -no growth 07/25 - urine culture -gram-negative ramses HEME: Macrocytic anemia Leukocytosis Thrombocytopenia -Monitor CBC, CMP, coags in a.m. -Check B12 - Transfused total 4 units PRBCs, 2 pack platelets, 1 FFP 1 cryo-past 24 hours ENDO: -Sliding-scale insulin if clinically indicated FEN: Hypocalcemia Received 2 g calcium gluconate overnight. Replace electrolytes as clinically indicated. Currently on clear liquid diet Msk: Right medial/lateral thigh compartment syndrome L5/S1 spondylolisthesis Status post day [address] Turner - wound VAC placement postop day 1 - 450 from wound VAC overnight. 100 SS from CHAZ PROPH: -Left lower extremity SCDs. Heparin 5000 units subcutaneous twice a day held in light of decreasing platelet/bleeding LINES: -Utilize peripheral IVs, central line if needed Critical Care: The total critical care time was 45 minutes. Time to perform other separately billable procedures was not included in the critical care time. Wiliam Barron MD Jul 27, 2016 07:22
[2016-07-27 07:27] LABS: HEMO FLAGS AUTO DIFF
[2016-07-27] MEDS: FAMOTIDINE 20 MG/2 ML VIAL IV PUSH SCH (08:08)
[2016-07-27] MEDS: MULTIVITAMIN TAB PO SCH (08:08)
[2016-07-27] MEDS: PIPERACIL-TAZO 3.375 GM PREMIX 50 ML IV SCH (08:08)
[2016-07-27] MEDS: SENNOSIDES 8.6 MG TAB PO SCH ×2 (08:08→20:54)
[2016-07-27] MEDS: RIFAXIMIN 550 MG TAB PO SCH ×3 (08:08→21:00)
[2016-07-27] MEDS: SODIUM CHLORIDE 0.9% FLUSH 5 ML FLUSH IV FLUSH SCH ×2 (08:08→20:54)
[2016-07-27 08:09] LABS: ALKALINE PHOSPHATASE 35 U/L (45-117); ALT (GPT) 458 U/L (10-53); ANION GAP 13 MEQ/L (5-15); AST (GOT) 2247 U/L (15-37); BICARBONATE 32.7 MEQ/L (21.0-32.0); BLOOD UREA NITROGEN 33 MG/DL (7-18); CHLORIDE 91 MEQ/L (98-107); GLOMERULAR FILTRATION RATE 12 ML/MIN (>89); HDL CHOLESTEROL 24.7 MG/DL (40.0-60.0); LDL CHOLESTEROL 26 MG/DL (0-99); MAGNESIUM 1.8 MG/DL (1.5-2.5); POTASSIUM 3.4 MEQ/L (3.5-5.1); SODIUM (NA) 137 MEQ/L (136-145); TOTAL BILIRUBIN ADULT 2.2 MG/DL (0.2-1.0)
[2016-07-27] MEDS: DOCUSATE SODIUM 100 MG CAP PO SCH ×2 (08:09→20:54)
[2016-07-27] MEDS: ARTIFICIAL TEARS OPTH SOLN 15 ML BTL EACH EYE SCH ×3 (08:09→17:17)
[2016-07-27] MEDS: ASPIRIN EC 325 MG TABEC PO SCH (08:09)
[2016-07-27] MEDS: FOLIC ACID 1 MG TAB PO SCH (08:09)
[2016-07-27] MEDS: POLYETHYLENE GLYCOL 17 GM PKG PO SCH (08:09)
[2016-07-27 08:12] LABS: CREATINE KINASE GREATER THAN 14000 U/L (26-192)
[2016-07-27 08:16] LABS: CALCIUM-PROTEIN CORRECTED 6.4 MG/DL (8.5-10.1)
[2016-07-27 08:19] LABS: PLATELET ESTIMATE SMEAR LOW (NORMAL); PLATELET MORPHOLOGY NORMAL (NORMAL)
[2016-07-27 08:20] LABS: SCAN/DIFF AUTO DIFF CONFIRMED
[2016-07-27] MEDS: ONDANSETRON HCL 4 MG/2 ML VIAL IV PRN (08:21)
[2016-07-27] MEDS: VANCOMYCIN 1,000 MG/NS 250 ML IV SCH ×2 (08:33)
[2016-07-27] MEDS: THIAMINE INJ 100 MG in SODIUM CHLORIDE 0.9% INJ 100 ML IV SCH (10:09)
--- NOTE | 2016-07-27 10:18 | PD.CAR.PN ---
CVT Progress Note Subjective/Hospital Course: Patient with clinical findings of medial and lateral thigh compartment syndrome For OR now Gayatri Baltazar 07/26/16 Patient underwent yesterday and medial and lateral fasciotomy of the thigh debridement Today she underwent washout the both, closure of the medial fasciotomy skin and wound VAC placement on lateral fasciotomy The lateral fasciotomy will need wound VAC for but 2 weeks and then this can be covered with the partial-thickness skin graft by plastic surgery 07/27/16 Status post the thigh compartment syndrome with medial and lateral fasciotomy of the right leg Yesterday patient went for washout closure and drainage of the medial fasciotomy site while the lateral fasciotomy from hip to the knee remains open Wound VAC in place Hemoglobin now stable and there is no other source of bleeding Patient was in active DIC and fibrinolysis for the first 48 hours and this is now abating Agree with blood and blood products administration Platelets remain stable and unless these drop on the 30,000 would probably not transfuse Patient can be out of bed and should be bearing weight on this leg as much as possible Objective: Vital Signs Date Time Temp Pulse Resp B/P Pulse Ox O2 Delivery O2 Flow Rate FiO2 07/27/16 10:10 99.0 107 16 152/110 95 07/27/16 09:31 98.8 103 18 151/110 99 07/27/16 09:11 99 Nasal Cannula 2.00 07/27/16 08:00 76 07/27/16 08:00 98.8 103 18 151/110 99 07/27/16 06:00 96 07/27/16 04:00 96 07/27/16 04:00 98.8 96 16 145/81 100 07/27/16 02:00 98 07/27/16 01:35 98.8 105 16 116/65 100 07/27/16 01:35 98.4 92 20 128/78 100 07/27/16 00:00 108 07/27/16 00:00 98.8 108 16 123/86 100 07/26/16 23:05 98.2 101 16 117/67 100 07/26/16 23:05 98.2 101 16 117/67 100 07/26/16 22:00 109 07/26/16 20:35 100 Nasal Cannula 2.00 07/26/16 20:00 101 07/26/16 20:00 98.2 101 16 124/76 100 07/26/16 18:00 97 07/26/16 16:00 90 07/26/16 16:00 97.7 92 11 125/82 100 07/26/16 15:15 97.9 96 12 130/88 100 Nasal Cannula 3 07/26/16 15:00 94 12 131/85 100 Nasal Cannula 3 07/26/16 14:45 110 12 145/86 99 Nasal Cannula 3 07/26/16 14:42 97.9 120 12 124/83 96 Nasal Cannula 3 07/26/16 13:00 98.7 18 20 137/86 100 07/26/16 12:25 98.5 105 20 123/74 100 07/26/16 12:10 98.9 100 20 122/67 100 07/26/16 11:30 98.1 106 20 120/64 100 Labs: Laboratory Tests Test 07/27/16 07/27/16 07/27/16 06:45 07:10 08:11 White Blood Count 5.2 TH/MM3 (4.0-11.0) Red Blood Count 2.51 MIL/MM3 (4.00-5.30) Hemoglobin 7.8 GM/DL (11.6-15.3) Hematocrit 21.9 % (35.0-46.0) Mean Corpuscular Volume 87.2 FL (80.0-100.0) Mean Corpuscular Hemoglobin 31.1 PG (27.0-34.0) Mean Corpuscular Hemoglobin 35.7 % Concent (32.0-36.0) Red Cell Distribution Width 18.0 % (11.6-17.2) Platelet Count 65 TH/MM3 (150-450) Mean Platelet Volume 8.5 FL (7.0-11.0) Neutrophils (%) (Auto) 91.9 % (16.0-70.0) Lymphocytes (%) (Auto) 4.5 % (9.0-44.0) Monocytes (%) (Auto) 3.5 % (0.0-8.0) Eosinophils (%) (Auto) 0.0 % (0.0-4.0) Basophils (%) (Auto) 0.1 % (0.0-2.0) Neutrophils # (Auto) 4.8 TH/MM3 (1.8-7.7) Lymphocytes # (Auto) 0.2 TH/MM3 (1.0-4.8) Monocytes # (Auto) 0.2 TH/MM3 (0-0.9) Eosinophils # (Auto) 0.0 TH/MM3 (0-0.4) Basophils # (Auto) 0.0 TH/MM3 (0-0.2) CBC Comment AUTO DIFF Differential Comment AUTO DIFF CONFIRMED Platelet Estimate LOW (NORMAL) Platelet Morphology Comment NORMAL (NORMAL) Prothrombin Time 13.2 SEC (9.8-11.6) Prothromb Time International 1.2 RATIO Ratio Activated Partial 40.2 SEC Thromboplast Time (24.3-30.1) Fibrinogen 133 mg/dL (181-393) Sodium Level 137 MEQ/L (136-145) Potassium Level 3.4 MEQ/L (3.5-5.1) Chloride Level 91 MEQ/L (98-107) Carbon Dioxide Level 32.7 MEQ/L (21.0-32.0) Anion Gap 13 MEQ/L (5-15) Blood Urea Nitrogen 33 MG/DL (7-18) Creatinine 4.44 MG/DL (0.50-1.00) Estimat Glomerular Filtration 12 ML/MIN (>89) Rate Random Glucose 140 MG/DL (74-106) Calcium Level 5.4 MG/DL (8.5-10.1) Protein Corrected Calcium 6.4 MG/DL (8.5-10.1) Phosphorus Level 5.0 MG/DL (2.5-4.9) Magnesium Level 1.8 MG/DL (1.5-2.5) Total Bilirubin 2.2 MG/DL (0.2-1.0) Aspartate Amino Transf 2247 U/L (AST/SGOT) (15-37) Alanine Aminotransferase 458 U/L (10-53) (ALT/SGPT) Alkaline Phosphatase 35 U/L (45-117) Total Creatine Kinase GREATER THAN 94241 U/L (26-192) Creatine Kinase MB 91.0 NG/ML (0.5-3.6) Creatine Kinase MB % 0.0 % (0.0-4.0) Total Protein 4.6 GM/DL (6.4-8.2) Albumin 3.0 GM/DL (3.4-5.0) Triglycerides Level 73 MG/DL (42-150) Cholesterol Level 65 MG/DL (120-200) LDL Cholesterol 26 MG/DL (0-99) HDL Cholesterol 24.7 MG/DL (40.0-60.0) Cholesterol/HDL Ratio 2.63 RATIO Lactic Acid Level 4.5 mmol/L (0.4-2.0) Ammonia 63 MCMOL/L (11-32) Blood Bank Comment Result Diagram: 07/27/16 0645 07/27/16 0645 Saw Turner MD Jul 27, 2016 10:17
--- NOTE | 2016-07-27 11:18 | PD.CONS ---
HPI Service Nephrology Consult Requested By Dr. Barron Reason for Consult Acute renal failure Primary Care Physician No Primary Care Physician History of Present Illness Patient is a 30-year-old white female who has overdosed on drugs and was brought in found to have compartment syndrome on her right thigh and hip area and has fasciotomy done, she has developed rhabdomyolysis and acute renal failure creatinine is risen to 4.4, she is awake and alert and responding to questions there is no previous history of kidney failure or kidney stones in the past. Review of Systems Constitutional: COMPLAINS OF: Fatigue Musculoskeletal: COMPLAINS OF: Joint pain, Muscle aches Past Family Social History Allergies: Coded Allergies: No Known Allergies (Unverified , 12/10/14) Past Medical History Drug abuse Past Surgical History Fracture of foot Reported Medications Reported Meds & Active Scripts Active No Active Prescriptions or Reported Medications Active Ordered Medications Current Medications Medications (Trade) Dose Ordered Sig/Sara Route Start Time Stop Time Status Last Admin (NS Flush) 2 ml UNSCH PRN IV FLUSH 07/25/16 16:15 (NS Flush) 2 ml BID IV FLUSH 07/25/16 21:00 07/27/16 08:08 Miscellaneous Information 1 [id number] XX 07/25/16 16:15 (Chlorhexidine 2% Cloth) 3 pack Taper DAILY@04 TOP 07/26/16 04:00 07/22/17 03:59 07/27/16 04:00 Chlorhexidine Gluconate 3 pack 3 pack UNSCH PRN TOP 07/25/16 16:15 Piperacillin Sod/ Tazobactam Sod 50 ml @ 100 mls/hr Q8H IV 07/26/16 00:00 07/27/16 08:08 (Vancomycin Consult Pharmacy) 0 ml @ 0 mls/hr UNSCH OTHER 07/25/16 16:15 Aspirin 325 mg 325 mg DAILY PO 07/26/16 09:00 (Thiamine Inj/NS Inj) 101 ml @ 101 mls/hr DAILY IV 07/25/16 20:00 07/27/16 10:09 (Ativan Inj) 1 mg Q2H PRN IV PUSH 07/25/16 17:45 Morphine Sulfate 4 mg 4 mg Q2H PRN IV 07/25/16 23:45 07/26/16 21:41 (Sodium Bicarbonate 8.4% Inj/Sterile Water For Inj) 1,000 ml @ 150 mls/hr Q6H40M IV 07/26/16 09:00 07/27/16 10:09 (Pepcid Inj) 20 mg DAILY IV PUSH 07/26/16 09:00 07/27/16 08:08 (Theragran) 1 tab DAILY PO 07/26/16 09:00 07/27/16 08:08 (Folate) 1 mg DAILY PO 07/26/16 09:00 07/27/16 08:09 (Tears Naturale Opth Soln) 1 drop TID EACH EYE 07/26/16 09:00 07/26/16 17:58 (Zofran Inj) 4 mg Q6H PRN IV 07/26/16 08:00 07/27/16 08:21 (Colace) 100 mg BID PO 07/26/16 09:00 07/27/16 08:09 (D50w (Vial) Inj) 25 ml UNSCH PRN IV PUSH 07/26/16 08:15 (Glucagon Inj) 1 mg UNSCH PRN OTHER 07/26/16 08:15 (Xifaxan) 550 mg BID PO 07/26/16 10:00 07/27/16 08:08 (Lactulose Liq) 30 ml Q8HR PO 07/26/16 14:00 07/26/16 21:41 Miscellaneous Information ALL NURSING DEPARTME... UNSCH PRN XX 07/26/16 14:44 07/27/16 14:43 (Vancomycin Inj/ NS 250 ml Inj) 250 ml @ 250 mls/hr Q12H IV 07/26/16 20:00 07/27/16 08:33 (Miralax) 17 gm DAILY PO 07/27/16 09:00 07/27/16 08:09 (Senokot) 17.2 mg Q12HR PO 07/27/16 09:00 07/27/16 08:08 Family History No family history of kidney disease Social History Smokes cigarettes daily one pack per day, smokes marijuana, uses other drugs Alcohol use positive Physical Exam Vital Signs Vital Signs Date Time Temp Pulse Resp B/P Pulse Ox O2 Delivery O2 Flow Rate FiO2 07/27/16 10:10 99.0 107 16 152/110 95 07/27/16 10:00 100 07/27/16 09:31 98.8 103 18 151/110 99 07/27/16 09:11 99 Nasal Cannula 2.00 07/27/16 08:00 76 07/27/16 08:00 98.8 103 18 151/110 99 07/27/16 06:00 96 07/27/16 04:00 96 07/27/16 04:00 98.8 96 16 145/81 100 07/27/16 02:00 98 07/27/16 01:35 98.8 105 16 116/65 100 07/27/16 01:35 98.4 92 20 128/78 100 07/27/16 00:00 108 07/27/16 00:00 98.8 108 16 123/86 100 07/26/16 23:05 98.2 101 16 117/67 100 07/26/16 23:05 98.2 101 16 117/67 100 07/26/16 22:00 109 07/26/16 20:35 100 Nasal Cannula 2.00 07/26/16 20:00 101 07/26/16 20:00 98.2 101 16 124/76 100 07/26/16 18:00 97 07/26/16 16:00 90 07/26/16 16:00 97.7 92 11 125/82 100 07/26/16 15:15 97.9 96 12 130/88 100 Nasal Cannula 3 07/26/16 15:00 94 12 131/85 100 Nasal Cannula 3 07/26/16 14:45 110 12 145/86 99 Nasal Cannula 3 07/26/16 14:42 97.9 120 12 124/83 96 Nasal Cannula 3 07/26/16 13:00 98.7 18 20 137/86 100 07/26/16 12:25 98.5 105 20 123/74 100 07/26/16 12:10 98.9 100 20 122/67 100 07/26/16 11:30 98.1 106 20 120/64 100 Physical Exam GENERAL: Well-nourished, well-developed patient. SKIN: Warm and dry. HEAD: Normocephalic. EYES: No scleral icterus. No injection or drainage. NECK: Supple, trachea midline. No JVD or lymphadenopathy. CARDIOVASCULAR: Regular rate and rhythm without murmurs, gallops, or rubs. RESPIRATORY: Breath sounds equal bilaterally. No accessory muscle use. GASTROINTESTINAL: Abdomen soft, non-tender, nondistended. EXTREMITIES: No cyanosis, right leg has the vacuum dressing, pulses positive NEUROLOGICAL: Awake, alert, . Non-focal. Laboratory Laboratory Tests Test 07/26/16 07/26/16 07/26/16 07/26/16 15:57 15:59 16:15 19:30 Lactic Acid Level 3.9 2.4 Random Vancomycin Level 11.0 Urine pH 6.5 Urine Eosinophils NONE SEEN Urine Random Creatinine 57.9 Urine Random Sodium 66 White Blood Count 4.9 Red Blood Count 1.81 Hemoglobin 5.9 Hematocrit 16.4 Mean Corpuscular Volume 90.8 Mean Corpuscular Hemoglobin 32.6 Mean Corpuscular Hemoglobin 36.0 Concent Red Cell Distribution Width 18.6 Platelet Count 39 Mean Platelet Volume 8.5 Neutrophils (%) (Auto) 91.7 Lymphocytes (%) (Auto) 6.1 Monocytes (%) (Auto) 2.1 Eosinophils (%) (Auto) 0.0 Basophils (%) (Auto) 0.1 Neutrophils # (Auto) 4.5 Lymphocytes # (Auto) 0.3 Monocytes # (Auto) 0.1 Eosinophils # (Auto) 0.0 Basophils # (Auto) 0.0 CBC Comment AUTO DIFF Differential Comment AUTO DIFF CONFIRMED Platelet Estimate LOW Platelet Morphology Comment NORMAL Prothrombin Time 15.1 Prothromb Time International 1.3 Ratio Activated Partial 53.0 Thromboplast Time Fibrinogen 119 Sodium Level 137 Potassium Level 3.8 Chloride Level 95 Carbon Dioxide Level 31.9 Anion Gap 10 Blood Urea Nitrogen 26 Creatinine 3.58 Estimat Glomerular Filtration 15 Rate Random Glucose 122 Calcium Level 5.0 Protein Corrected Calcium 6.1 Iron Level 106 Total Iron Binding Capacity 130 Percent Iron Saturation 81.4 Ferritin 400 Total Bilirubin 2.2 Aspartate Amino Transf 2825 (AST/SGOT) Alanine Aminotransferase 468 (ALT/SGPT) Alkaline Phosphatase 30 Total Protein 4.3 Albumin 2.9 Tumor Marker Alpha Fetoprotein 3.2 Test 07/26/16 07/26/16 07/26/16 07/27/16 21:00 21:30 22:07 06:45 White Blood Count 5.0 5.2 Red Blood Count 1.87 2.51 Hemoglobin 6.0 7.8 Hematocrit 17.2 21.9 Mean Corpuscular Volume 92.1 87.2 Mean Corpuscular Hemoglobin 32.3 31.1 Mean Corpuscular Hemoglobin 35.0 35.7 Concent Red Cell Distribution Width 18.5 18.0 Platelet Count 41 65 Mean Platelet Volume 8.7 8.5 Prothrombin Time 14.6 13.2 Prothromb Time International 1.3 1.2 Ratio Activated Partial 49.9 40.2 Thromboplast Time Fibrinogen 117 133 Sodium Level 138 137 Potassium Level 3.8 3.4 Chloride Level 95 91 Carbon Dioxide Level 33.0 32.7 Anion Gap 10 13 Blood Urea Nitrogen 28 33 Creatinine 3.77 4.44 Estimat Glomerular Filtration 14 12 Rate Random Glucose 144 140 Calcium Level 5.0 5.4 Protein Corrected Calcium 6.2 6.4 Total Bilirubin 2.1 2.2 Aspartate Amino Transf 2820 2247 (AST/SGOT) Alanine Aminotransferase 498 458 (ALT/SGPT) Alkaline Phosphatase 30 35 Total Protein 4.1 4.6 Albumin 2.9 3.0 Blood Type O POSITIVE Crossmatch Leukocyte-Reduced Leukocyte-Reduced Red Blood Red Blood Cells Cells Blood Bank Comment Neutrophils (%) (Auto) 91.9 Lymphocytes (%) (Auto) 4.5 Monocytes (%) (Auto) 3.5 Eosinophils (%) (Auto) 0.0 Basophils (%) (Auto) 0.1 Neutrophils # (Auto) 4.8 Lymphocytes # (Auto) 0.2 Monocytes # (Auto) 0.2 Eosinophils # (Auto) 0.0 Basophils # (Auto) 0.0 CBC Comment AUTO DIFF Differential Comment AUTO DIFF CONFIRMED Platelet Estimate LOW Platelet Morphology Comment NORMAL Phosphorus Level 5.0 Magnesium Level 1.8 Total Creatine Kinase GREATER THAN 81022 Creatine Kinase MB 91.0 Creatine Kinase MB % 0.0 Triglycerides Level 73 Cholesterol Level 65 LDL Cholesterol 26 HDL Cholesterol 24.7 Cholesterol/HDL Ratio 2.63 Test 07/27/16 07/27/16 07:10 08:11 Lactic Acid Level 4.5 Ammonia 63 Blood Bank Comment Date/Time Procedure Status Source Growth 07/25/16 16:10 Urine Culture - Final Complete Urine Random Urine Escherichia Coli 07/25/16 14:25 Aerobic Blood Culture - Preliminary Resulted Blood Peripheral NO GROWTH IN 1 DAY 07/25/16 14:25 Anaerobic Blood Culture - Preliminary Resulted Blood Peripheral NO GROWTH IN 1 DAY Result Diagram: 07/27/16 0645 07/27/16 0645 Imaging Last Impressions Chest X-Ray 07/27/16 0000 Signed Impressions: Service Date/Time: Wednesday, July 27, 2016 04:29 - CONCLUSION: Possible interval development of mild interstitial process possibly pulmonary edema and slight left lung base atelectasis. Kathy Berry MD Abdomen Ultrasound 07/26/16 0000 Signed Impressions: Service Date/Time: Tuesday, July 26, 2016 10:21 - CONCLUSION: 1. Small amount of free fluid adjacent to the lower poles of both kidneys. 2. Obscuration of the head of the pancreas, distal IVC and aorta due to overlying bowel gas. 3. Otherwise negative. Judson Cee MD Lower Extremity CT 07/25/16 0000 Signed Impressions: Service Date/Time: Monday, July 25, 2016 18:54 - CONCLUSION: Extensive nonspecific myositis of the right thigh, also involves gluteus medius and minimus proximally and at least medial gastrocnemius below the knee. Infectious/inflammatory and ischemic etiologies would be in the differential. No gas bubbles are seen to substantiate necrotizing fasciitis. No organized/drainable abscess. Glenroy Sheffield MD Hip and Pelvis X-Ray 07/25/16 0000 Signed Impressions: Service Date/Time: Monday, July 25, 2016 16:52 - CONCLUSION: Intact pelvis and right hip. Nonspecific surrounding soft tissue swelling Glenroy Sheffield MD Head CT 07/25/16 0000 Signed Impressions: Service Date/Time: Monday, July 25, 2016 14:38 - CONCLUSION: Negative noncontrast head CT. Glenroy Sheffield MD Chest CT 07/25/16 0000 Signed Impressions: Service Date/Time: Monday, July 25, 2016 16:37 - CONCLUSION: Focal dense consolidation right middle lobe, nonspecific but most likely infectious or inflammatory. Also a 3 mm right basilar pulmonary nodule Followup noncontrast chest CT in a few months recommended to confirm resolution/stability. Glenroy Sheffield MD Abdomen/Pelvis CT 07/25/16 0000 Signed Impressions: Service Date/Time: Monday, July 25, 2016 16:37 - CONCLUSION: 1. Fatty liver and 21 mm right ovarian cyst. Otherwise, no acute abnormality seen within the abdomen or pelvis. 2. Swollen, heterogeneous right hip musculature, primarily gluteus medius and minimus, rectus femoris and vastus lateralis and the adductor muscles. This is nonspecific but suggests a subacute hematoma of these structures. Nothing organized/measurable. 3. Chronic L5 pars defects with grade 2 L5/S1 spondylolisthesis. Glenroy Sheffield MD Assessment and Plan Problem List: (1) Acute kidney failure Plan: This is likely due to rhabdomyolysis and acute tubular necrosis as she at some point will need hemodialysis support if her creatinine continued to climb, I have discussed with Dr. Barron I agree with hydration and sodium bicarbonate infusion and follow CPK, anxious vancomycin dose due to renal failure, avoid nephrotoxins (2) Compartment syndrome of right lower extremity Plan: Status post surgery (3) SIRS (systemic inflammatory response syndrome) Plan: Continue with broad-spectrum antibiotics (4) UTI (urinary tract infection) Plan: On Zosyn (5) Severe sepsis Plan: Status post fasciotomy right leg (6) Small right middle lobe consolidation Plan: On antibiotics Problem Qualifiers (1) Acute kidney failure: Qualified Code: N17.9 - Acute renal failure, unspecified acute renal failure type Vinny Fletcher MD Jul 27, 2016 11:18
[2016-07-27] MEDS: MORPHINE SULFATE 4 MG/ML INJ IV PRN ×2 (11:26→22:32)
--- NOTE | 2016-07-27 11:58 | PD.CARD.PN ---
Subjective Subjective Remarks alert in nad, denies chest pain or sob Objective Vital Signs / I&O Vital Signs Date Time Temp Pulse Resp B/P Pulse Ox O2 Delivery O2 Flow Rate FiO2 07/27/16 11:40 99.0 96 14 155/97 95 07/27/16 10:10 99.0 107 16 152/110 95 07/27/16 10:00 100 07/27/16 09:31 98.8 103 18 151/110 99 07/27/16 09:11 99 Nasal Cannula 2.00 07/27/16 08:00 76 07/27/16 08:00 98.8 103 18 151/110 99 07/27/16 06:00 96 07/27/16 04:00 96 07/27/16 04:00 98.8 96 16 145/81 100 07/27/16 02:00 98 07/27/16 01:35 98.8 105 16 116/65 100 07/27/16 01:35 98.4 92 20 128/78 100 07/27/16 00:00 108 07/27/16 00:00 98.8 108 16 123/86 100 07/26/16 23:05 98.2 101 16 117/67 100 07/26/16 23:05 98.2 101 16 117/67 100 07/26/16 22:00 109 07/26/16 20:35 100 Nasal Cannula 2.00 07/26/16 20:00 101 07/26/16 20:00 98.2 101 16 124/76 100 07/26/16 18:00 97 07/26/16 16:00 90 07/26/16 16:00 97.7 92 11 125/82 100 07/26/16 15:15 97.9 96 12 130/88 100 Nasal Cannula 3 07/26/16 15:00 94 12 131/85 100 Nasal Cannula 3 07/26/16 14:45 110 12 145/86 99 Nasal Cannula 3 07/26/16 14:42 97.9 120 12 124/83 96 Nasal Cannula 3 07/26/16 13:00 98.7 18 20 137/86 100 07/26/16 12:25 98.5 105 20 123/74 100 07/26/16 12:10 98.9 100 20 122/67 100 I/O 11/28/16 11/28/16 07/26/16 07/27/16 07/27/16 07/27/16 07:00 15:00 23:00 07:00 15:00 23:00 Intake Total 4951 ml 3358 ml 1098 ml 2352 ml Output Total 950 ml 255 ml 800 ml 920 ml Balance 4001 ml 3103 ml 298 ml 1432 ml Intake Oral 530 ml 100 ml IV Total 2321 ml 1723 ml 998 ml 1153 ml Albumin 100 ml 100 ml 100 ml Packed Cells 500 ml FFP 227 ml Platelets 499 ml Cryoprecipitate 308 ml Other 2100 ml 1000 ml Output Urine Total 850 ml 250 ml 250 ml 350 ml Stool Total 0 ml 0 ml Drainage Total 550 ml 570 ml Estimated Blood Loss 100 ml 5 ml # Bowel Movements 0 Physical Exam GENERAL: SKIN: Warm and dry. HEAD: Normocephalic. EYES: No scleral icterus. No injection or drainage. NECK: Supple, trachea midline. No JVD or lymphadenopathy. CARDIOVASCULAR: Regular rate and rhythm without murmurs, gallops, or rubs. RESPIRATORY: Breath sounds equal bilaterally. No accessory muscle use. GASTROINTESTINAL: Abdomen soft, non-tender, nondistended. MUSCULOSKELETAL: No cyanosis, or edema. BACK: Nontender without obvious deformity. No CVA tenderness. Laboratory Laboratory Tests Test 07/26/16 07/26/16 07/26/16 07/26/16 15:57 15:59 16:15 19:30 Lactic Acid Level 3.9 mmol/L 2.4 mmol/L Random Vancomycin Level 11.0 COMMENT Urine pH 6.5 Urine Eosinophils NONE SEEN /HPF Urine Random Creatinine 57.9 MG/DL Urine Random Sodium 66 MEQ/L White Blood Count 4.9 TH/MM3 Red Blood Count 1.81 MIL/MM3 Hemoglobin 5.9 GM/DL Hematocrit 16.4 % Mean Corpuscular Volume 90.8 FL Mean Corpuscular Hemoglobin 32.6 PG Mean Corpuscular Hemoglobin 36.0 % Concent Red Cell Distribution Width 18.6 % Platelet Count 39 TH/MM3 Mean Platelet Volume 8.5 FL Neutrophils (%) (Auto) 91.7 % Lymphocytes (%) (Auto) 6.1 % Monocytes (%) (Auto) 2.1 % Eosinophils (%) (Auto) 0.0 % Basophils (%) (Auto) 0.1 % Neutrophils # (Auto) 4.5 TH/MM3 Lymphocytes # (Auto) 0.3 TH/MM3 Monocytes # (Auto) 0.1 TH/MM3 Eosinophils # (Auto) 0.0 TH/MM3 Basophils # (Auto) 0.0 TH/MM3 CBC Comment AUTO DIFF Differential Comment AUTO DIFF CONFIRMED Platelet Estimate LOW Platelet Morphology Comment NORMAL Prothrombin Time 15.1 SEC Prothromb Time International 1.3 RATIO Ratio Activated Partial 53.0 SEC Thromboplast Time Fibrinogen 119 mg/dL Sodium Level 137 MEQ/L Potassium Level 3.8 MEQ/L Chloride Level 95 MEQ/L Carbon Dioxide Level 31.9 MEQ/L Anion Gap 10 MEQ/L Blood Urea Nitrogen 26 MG/DL Creatinine 3.58 MG/DL Estimat Glomerular Filtration 15 ML/MIN Rate Random Glucose 122 MG/DL Calcium Level 5.0 MG/DL Protein Corrected Calcium 6.1 MG/DL Iron Level 106 MCG/DL Total Iron Binding Capacity 130 MCG/DL Percent Iron Saturation 81.4 % Ferritin 400 NG/ML Total Bilirubin 2.2 MG/DL Aspartate Amino Transf 2825 U/L (AST/SGOT) Alanine Aminotransferase 468 U/L (ALT/SGPT) Alkaline Phosphatase 30 U/L Total Protein 4.3 GM/DL Albumin 2.9 GM/DL Tumor Marker Alpha Fetoprotein 3.2 NG/ML Test 07/26/16 07/26/16 07/26/16 07/27/16 21:00 21:30 22:07 06:45 White Blood Count 5.0 TH/MM3 5.2 TH/MM3 Red Blood Count 1.87 MIL/MM3 2.51 MIL/MM3 Hemoglobin 6.0 GM/DL 7.8 GM/DL Hematocrit 17.2 % 21.9 % Mean Corpuscular Volume 92.1 FL 87.2 FL Mean Corpuscular Hemoglobin 32.3 PG 31.1 PG Mean Corpuscular Hemoglobin 35.0 % 35.7 % Concent Red Cell Distribution Width 18.5 % 18.0 % Platelet Count 41 TH/MM3 65 TH/MM3 Mean Platelet Volume 8.7 FL 8.5 FL Prothrombin Time 14.6 SEC 13.2 SEC Prothromb Time International 1.3 RATIO 1.2 RATIO Ratio Activated Partial 49.9 SEC 40.2 SEC Thromboplast Time Fibrinogen 117 mg/dL 133 mg/dL Sodium Level 138 MEQ/L 137 MEQ/L Potassium Level 3.8 MEQ/L 3.4 MEQ/L Chloride Level 95 MEQ/L 91 MEQ/L Carbon Dioxide Level 33.0 MEQ/L 32.7 MEQ/L Anion Gap 10 MEQ/L 13 MEQ/L Blood Urea Nitrogen 28 MG/DL 33 MG/DL Creatinine 3.77 MG/DL 4.44 MG/DL Estimat Glomerular Filtration 14 ML/MIN 12 ML/MIN Rate Random Glucose 144 MG/DL 140 MG/DL Calcium Level 5.0 MG/DL 5.4 MG/DL Protein Corrected Calcium 6.2 MG/DL 6.4 MG/DL Total Bilirubin 2.1 MG/DL 2.2 MG/DL Aspartate Amino Transf 2820 U/L 2247 U/L (AST/SGOT) Alanine Aminotransferase 498 U/L 458 U/L (ALT/SGPT) Alkaline Phosphatase 30 U/L 35 U/L Total Protein 4.1 GM/DL 4.6 GM/DL Albumin 2.9 GM/DL 3.0 GM/DL Blood Type O POSITIVE Crossmatch Leukocyte-Reduced Leukocyte-Reduced Red Blood Red Blood Cells Cells Blood Bank Comment Neutrophils (%) (Auto) 91.9 % Lymphocytes (%) (Auto) 4.5 % Monocytes (%) (Auto) 3.5 % Eosinophils (%) (Auto) 0.0 % Basophils (%) (Auto) 0.1 % Neutrophils # (Auto) 4.8 TH/MM3 Lymphocytes # (Auto) 0.2 TH/MM3 Monocytes # (Auto) 0.2 TH/MM3 Eosinophils # (Auto) 0.0 TH/MM3 Basophils # (Auto) 0.0 TH/MM3 CBC Comment AUTO DIFF Differential Comment AUTO DIFF CONFIRMED Platelet Estimate LOW Platelet Morphology Comment NORMAL Phosphorus Level 5.0 MG/DL Magnesium Level 1.8 MG/DL Total Creatine Kinase GREATER THAN 57878 U/L Creatine Kinase MB 91.0 NG/ML Creatine Kinase MB % 0.0 % Triglycerides Level 73 MG/DL Cholesterol Level 65 MG/DL LDL Cholesterol 26 MG/DL HDL Cholesterol 24.7 MG/DL Cholesterol/HDL Ratio 2.63 RATIO Test 07/27/16 07/27/16 07:10 08:11 Lactic Acid Level 4.5 mmol/L Ammonia 63 MCMOL/L Blood Bank Comment Assessment and Plan Problem List: (1) Drug overdose (2) Hypocalcemia (3) SIRS (systemic inflammatory response syndrome) (4) Renal failure (5) Hyperkalemia (6) Lactic acidosis (7) Altered mental status (8) Severe sepsis (9) Elevated troponin (10) Severe metabolic acidosis (11) Acute kidney failure (12) Leukocytosis (13) Hip hematoma, right (14) Small right middle lobe consolidation (15) Rhabdomyolysis (16) Compartment syndrome of right lower extremity Assessment and Plan 1.) Elevated troponin - suspect d/t global hypoperfusion d/t hypotension form sepsis, ef=65%, patient is assymptomatic, trop trending down 2.) POD 1 - stable Problem Qualifiers (1) Drug overdose: Qualified Code: T50.904A - Drug overdose, undetermined intent, initial encounter (2) Acute kidney failure: Qualified Code: N17.9 - Acute renal failure, unspecified acute renal failure type (3) Leukocytosis: Qualified Code: D72.829 - Leukocytosis, unspecified type Luis Eduardo Carter MD Jul 27, 2016 11:58
[2016-07-27] MEDS ORDERED: MAGNESIUM SULFATE 1 GM PREMIX 100 ML IV ONE (12:30)
[2016-07-27] MEDS ORDERED: POTASSIUM CHLORIDE 20 MEQ CONTROLLED RELEASE TAB PO ONE (12:30)
[2016-07-27] MEDS ORDERED: CALCIUM CHLORIDE INJ 1 GM in SODIUM CHLORIDE 0.9% INJ 100 ML IV ONE (13:00)
--- NOTE | 2016-07-27 14:45 | HHI.IDPN ---
Subjective Subjective Remarks pt is doing fine afebrile Antibiotics pip tazo vanco Allergies: Coded Allergies: No Known Allergies (Unverified , 12/10/14) Objective . Vital Signs Date Time Temp Pulse Resp B/P Pulse Ox O2 Delivery O2 Flow Rate FiO2 07/27/16 14:00 95 07/27/16 12:00 95 07/27/16 12:00 99.0 101 14 142/86 96 07/27/16 11:40 99.0 96 14 155/97 95 07/27/16 10:10 99.0 107 16 152/110 95 07/27/16 10:00 100 07/27/16 09:31 98.8 103 18 151/110 99 07/27/16 09:11 99 Nasal Cannula 2.00 07/27/16 08:00 76 07/27/16 08:00 98.8 103 18 151/110 99 07/27/16 06:00 96 07/27/16 04:00 96 07/27/16 04:00 98.8 96 16 145/81 100 07/27/16 02:00 98 07/27/16 01:35 98.8 105 16 116/65 100 07/27/16 01:35 98.4 92 20 128/78 100 07/27/16 00:00 108 07/27/16 00:00 98.8 108 16 123/86 100 07/26/16 23:05 98.2 101 16 117/67 100 07/26/16 23:05 98.2 101 16 117/67 100 07/26/16 22:00 109 07/26/16 20:35 100 Nasal Cannula 2.00 07/26/16 20:00 101 07/26/16 20:00 98.2 101 16 124/76 100 07/26/16 18:00 97 07/26/16 16:00 90 07/26/16 16:00 97.7 92 11 125/82 100 07/26/16 15:15 97.9 96 12 130/88 100 Nasal Cannula 3 07/26/16 15:00 94 12 131/85 100 Nasal Cannula 3 07/26/16 14:45 110 12 145/86 99 Nasal Cannula 3 07/26/16 14:42 97.9 120 12 124/83 96 Nasal Cannula 3 07/26/16 07/26/16 07/27/16 15:00 23:00 07:00 Intake Total 3358 ml 1098 ml 2352 ml Output Total 255 ml 800 ml 920 ml Balance 3103 ml 298 ml 1432 ml Intake Oral 100 ml IV Total 1723 ml 998 ml 1153 ml Albumin 100 ml 100 ml 100 ml Packed Cells 500 ml FFP 227 ml Platelets 499 ml Cryoprecipitate 308 ml Other 1000 ml Output Urine Total 250 ml 250 ml 350 ml Stool Total 0 ml 0 ml Drainage Total 550 ml 570 ml Estimated Blood Loss 5 ml # Bowel Movements 0 . Laboratory Tests Test 07/26/16 07/26/16 07/26/16 07/26/16 02:35 08:47 19:30 21:00 White Blood Count 11.6 TH/MM3 4.9 TH/MM3 5.0 TH/MM3 Red Blood Count 3.02 MIL/MM3 1.81 MIL/MM3 1.87 MIL/MM3 Hemoglobin 11.1 GM/DL 7.9 GM/DL 5.9 GM/DL 6.0 GM/DL Hematocrit 31.9 % 22.9 % 16.4 % 17.2 % Mean Corpuscular Volume 105.6 FL 90.8 FL 92.1 FL Mean Corpuscular Hemoglobin 36.7 PG 32.6 PG 32.3 PG Mean Corpuscular Hemoglobin 34.7 % 36.0 % 35.0 % Concent Red Cell Distribution Width 13.3 % 18.6 % 18.5 % Platelet Count 116 TH/MM3 39 TH/MM3 41 TH/MM3 Mean Platelet Volume 8.5 FL 8.5 FL 8.7 FL Neutrophils (%) (Auto) 93.8 % 91.7 % Lymphocytes (%) (Auto) 4.8 % 6.1 % Monocytes (%) (Auto) 1.2 % 2.1 % Eosinophils (%) (Auto) 0.0 % 0.0 % Basophils (%) (Auto) 0.2 % 0.1 % Neutrophils # (Auto) 10.9 TH/MM3 4.5 TH/MM3 Lymphocytes # (Auto) 0.6 TH/MM3 0.3 TH/MM3 Monocytes # (Auto) 0.1 TH/MM3 0.1 TH/MM3 Eosinophils # (Auto) 0.0 TH/MM3 0.0 TH/MM3 Basophils # (Auto) 0.0 TH/MM3 0.0 TH/MM3 CBC Comment AUTO DIFF AUTO DIFF Differential Comment AUTO DIFF AUTO DIFF CONFIRMED CONFIRMED Platelet Estimate LOW LOW Platelet Morphology Comment NORMAL NORMAL Red Cell Morphology Comment NORMAL Test 07/27/16 06:45 White Blood Count 5.2 TH/MM3 Red Blood Count 2.51 MIL/MM3 Hemoglobin 7.8 GM/DL Hematocrit 21.9 % Mean Corpuscular Volume 87.2 FL Mean Corpuscular Hemoglobin 31.1 PG Mean Corpuscular Hemoglobin 35.7 % Concent Red Cell Distribution Width 18.0 % Platelet Count 65 TH/MM3 Mean Platelet Volume 8.5 FL Neutrophils (%) (Auto) 91.9 % Lymphocytes (%) (Auto) 4.5 % Monocytes (%) (Auto) 3.5 % Eosinophils (%) (Auto) 0.0 % Basophils (%) (Auto) 0.1 % Neutrophils # (Auto) 4.8 TH/MM3 Lymphocytes # (Auto) 0.2 TH/MM3 Monocytes # (Auto) 0.2 TH/MM3 Eosinophils # (Auto) 0.0 TH/MM3 Basophils # (Auto) 0.0 TH/MM3 CBC Comment AUTO DIFF Differential Comment AUTO DIFF CONFIRMED Platelet Estimate LOW Platelet Morphology Comment NORMAL Laboratory Tests Test 07/25/16 07/25/16 07/26/16 07/26/16 18:20 19:16 02:35 08:47 Lactic Acid Level 7.2 mmol/L 7.2 mmol/L 4.6 mmol/L Sodium Level 148 MEQ/L 146 MEQ/L 138 MEQ/L Potassium Level 4.9 MEQ/L 4.8 MEQ/L 3.9 MEQ/L Chloride Level 106 MEQ/L 106 MEQ/L 98 MEQ/L Carbon Dioxide Level 20.0 MEQ/L 22.2 MEQ/L 24.8 MEQ/L Anion Gap 22 MEQ/L 18 MEQ/L 15 MEQ/L Blood Urea Nitrogen 21 MG/DL 23 MG/DL 28 MG/DL Creatinine 2.93 MG/DL 3.02 MG/DL 3.41 MG/DL Estimat Glomerular Filtration 19 ML/MIN 18 ML/MIN 16 ML/MIN Rate Random Glucose 164 MG/DL 175 MG/DL 204 MG/DL Calcium Level 5.3 MG/DL LESS THAN 5.0 LESS THAN 5.0 MG/DL MG/DL Protein Corrected Calcium 6.3 MG/DL 6.3 MG/DL 6.7 MG/DL Total Bilirubin 1.0 MG/DL 0.7 MG/DL 0.8 MG/DL Aspartate Amino Transf 6188 U/L 6693 U/L 5374 U/L (AST/SGOT) Alanine Aminotransferase 1026 U/L 952 U/L 838 U/L (ALT/SGPT) Alkaline Phosphatase 82 U/L 54 U/L 41 U/L Total Creatine Kinase 332502 U/L GREATER THAN GREATER THAN 61043 U/L 54312 U/L Creatine Kinase MB 1403.8 NG/ML 940.4 NG/ML 605.8 NG/ML Creatine Kinase MB % 1.4 % 0.0 % 0.0 % Troponin I 7.18 NG/ML 6.60 NG/ML 5.65 NG/ML Total Protein 4.7 GM/DL 3.8 GM/DL 3.2 GM/DL Albumin 2.3 GM/DL 1.8 GM/DL 1.5 GM/DL Magnesium Level 1.4 MG/DL 1.4 MG/DL Phosphorus Level 4.9 MG/DL Ammonia 115 MCMOL/L Human Chorionic Gonadotropin, LESS THAN 1 Quant MIU/ML Test 07/26/16 07/26/16 07/26/16 07/27/16 15:57 19:30 21:00 06:45 Lactic Acid Level 3.9 mmol/L 2.4 mmol/L Sodium Level 137 MEQ/L 138 MEQ/L 137 MEQ/L Potassium Level 3.8 MEQ/L 3.8 MEQ/L 3.4 MEQ/L Chloride Level 95 MEQ/L 95 MEQ/L 91 MEQ/L Carbon Dioxide Level 31.9 MEQ/L 33.0 MEQ/L 32.7 MEQ/L Anion Gap 10 MEQ/L 10 MEQ/L 13 MEQ/L Blood Urea Nitrogen 26 MG/DL 28 MG/DL 33 MG/DL Creatinine 3.58 MG/DL 3.77 MG/DL 4.44 MG/DL Estimat Glomerular Filtration 15 ML/MIN 14 ML/MIN 12 ML/MIN Rate Random Glucose 122 MG/DL 144 MG/DL 140 MG/DL Calcium Level 5.0 MG/DL 5.0 MG/DL 5.4 MG/DL Protein Corrected Calcium 6.1 MG/DL 6.2 MG/DL 6.4 MG/DL Iron Level 106 MCG/DL Total Iron Binding Capacity 130 MCG/DL Percent Iron Saturation 81.4 % Ferritin 400 NG/ML Total Bilirubin 2.2 MG/DL 2.1 MG/DL 2.2 MG/DL Aspartate Amino Transf 2825 U/L 2820 U/L 2247 U/L (AST/SGOT) Alanine Aminotransferase 468 U/L 498 U/L 458 U/L (ALT/SGPT) Alkaline Phosphatase 30 U/L 30 U/L 35 U/L Total Protein 4.3 GM/DL 4.1 GM/DL 4.6 GM/DL Albumin 2.9 GM/DL 2.9 GM/DL 3.0 GM/DL Tumor Marker Alpha Fetoprotein 3.2 NG/ML Phosphorus Level 5.0 MG/DL Magnesium Level 1.8 MG/DL Total Creatine Kinase GREATER THAN 20001 U/L Creatine Kinase MB 91.0 NG/ML Creatine Kinase MB % 0.0 % Triglycerides Level 73 MG/DL Cholesterol Level 65 MG/DL LDL Cholesterol 26 MG/DL HDL Cholesterol 24.7 MG/DL Cholesterol/HDL Ratio 2.63 RATIO Test 07/27/16 07:10 Lactic Acid Level 4.5 mmol/L Ammonia 63 MCMOL/L Microbiology Date/Time Procedure Status Source Growth 07/25/16 14:15 Aerobic Blood Culture - Preliminary Resulted Blood Peripheral NO GROWTH IN 2 DAYS 07/25/16 14:15 Anaerobic Blood Culture - Preliminary Resulted Blood Peripheral NO GROWTH IN 2 DAYS 07/25/16 14:25 Aerobic Blood Culture - Preliminary Resulted Blood Peripheral NO GROWTH IN 2 DAYS 07/25/16 14:25 Anaerobic Blood Culture - Preliminary Resulted Blood Peripheral NO GROWTH IN 2 DAYS 07/25/16 16:10 Urine Culture - Final Complete Urine Random Urine Escherichia Coli Imaging Last Impressions Chest X-Ray 07/27/16 0000 Signed Impressions: Service Date/Time: Wednesday, July 27, 2016 04:29 - CONCLUSION: Possible interval development of mild interstitial process possibly pulmonary edema and slight left lung base atelectasis. Kathy Berry MD Abdomen Ultrasound 07/26/16 0000 Signed Impressions: Service Date/Time: Tuesday, July 26, 2016 10:21 - CONCLUSION: 1. Small amount of free fluid adjacent to the lower poles of both kidneys. 2. Obscuration of the head of the pancreas, distal IVC and aorta due to overlying bowel gas. 3. Otherwise negative. Judson Cee MD Lower Extremity CT 07/25/16 0000 Signed Impressions: Service Date/Time: Monday, July 25, 2016 18:54 - CONCLUSION: Extensive nonspecific myositis of the right thigh, also involves gluteus medius and minimus proximally and at least medial gastrocnemius below the knee. Infectious/inflammatory and ischemic etiologies would be in the differential. No gas bubbles are seen to substantiate necrotizing fasciitis. No organized/drainable abscess. Glenroy Sheffield MD Hip and Pelvis X-Ray 07/25/16 0000 Signed Impressions: Service Date/Time: Monday, July 25, 2016 16:52 - CONCLUSION: Intact pelvis and right hip. Nonspecific surrounding soft tissue swelling Glenroy Sheffield MD Head CT 07/25/16 0000 Signed Impressions: Service Date/Time: Monday, July 25, 2016 14:38 - CONCLUSION: Negative noncontrast head CT. Glenroy Sheffield MD Chest CT 07/25/16 0000 Signed Impressions: Service Date/Time: Monday, July 25, 2016 16:37 - CONCLUSION: Focal dense consolidation right middle lobe, nonspecific but most likely infectious or inflammatory. Also a 3 mm right basilar pulmonary nodule Followup noncontrast chest CT in a few months recommended to confirm resolution/stability. Glenroy Sheffield MD Abdomen/Pelvis CT 07/25/16 0000 Signed Impressions: Service Date/Time: Monday, July 25, 2016 16:37 - CONCLUSION: 1. Fatty liver and 21 mm right ovarian cyst. Otherwise, no acute abnormality seen within the abdomen or pelvis. 2. Swollen, heterogeneous right hip musculature, primarily gluteus medius and minimus, rectus femoris and vastus lateralis and the adductor muscles. This is nonspecific but suggests a subacute hematoma of these structures. Nothing organized/measurable. 3. Chronic L5 pars defects with grade 2 L5/S1 spondylolisthesis. Glenroy Sheffield MD Physical Exam CONSTITUTIONAL/GENERAL: This is an adequately nourished patient, in no apparent distress. SKIN: No jaundice, rashes, or lesions. Skin temperature appropriate. Not diaphoretic. CARDIOVASCULAR: Regular rate and rhythm without murmurs, gallops, or rubs. No JVD. Peripheral pulses symmetric. RESPIRATORY/CHEST: Symmetric, unlabored respirations. Clear to auscultation. Breath sounds equal bilaterally. No wheezes, rales, or rhonchi. GASTROINTESTINAL: Abdomen soft, non-tender, mildly distended. No hepato- splenomegaly, or palpable masses. No guarding. Bowel sounds present. GENITOURINARY: Without palpable bladder distension. Sinclair catheter in place with small amount of dark urine MUSCULOSKELETAL: Extremities without clubbing, cyanosis, Less obvious RLE non piting edema. VAC dressing in place R thigh with serosangious dc No joint tenderness or effusion noted. No calf tenderness. No mottling or clubbing. R foot is warm, well perfuised but with less prominent numbness LYMPHATICS: No palpable cervical or supraclavicular adenopathy. NEUROLOGICAL: Awake and alert. Motor and sensory grossly within normal limits. Follows commands. normal speech Moves all extremities. PSYCHIATRIC: calm and cooperative Assessment & Plan Remarks R thigh myositis involving multiple muscel groups compartment sd sp fasciotomy Illicit drug OD Sepsis (lactic acidosis, leukocytosis) suspected vs other condition UTI E.coli cont jolie devries P clx untill final Kimi Carter MD Jul 27, 2016 14:45
[2016-07-27] MEDS: PIPERACIL-TAZO 2.25 GM PREMIX 50 ML IV SCH ×2 (15:31→23:28)
[2016-07-27 17:52] LABS: MYELOPEROXIDASE LESS THAN 1.0 AI (<1.0); PROTEINASE-3 LESS THAN 1.0 AI (<1.0)
[2016-07-27 18:56] LABS: AUTOMATED NEUTROPHIL # 3.8 TH/MM3 (1.8-7.7); BASOPHIL % 0.4 % (0.0-2.0); HEMATOCRIT 21.5 % (35.0-46.0); LYMPH % 10.6 % (9.0-44.0); LYMPHOCYTE # 0.5 TH/MM3 (1.0-4.8); MEAN CELL VOLUME 86.2 FL (80.0-100.0); MEAN CORPUSCULAR HEMOGLOBIN 30.6 PG (27.0-34.0); MEAN CORPUSCULAR HGB CONC 35.5 % (32.0-36.0); MONO % 4.8 % (0.0-8.0); NEUT % 84.2 % (16.0-70.0); PLATELET COUNT 58 TH/MM3 (150-450); RED CELL DISTRIBUTION WIDTH 18.3 % (11.6-17.2); WHITE BLOOD COUNT 4.5 TH/MM3 (4.0-11.0)
[2016-07-27 18:57] LABS: COCAINE, URINE NEG (NEG)
[2016-07-27 18:58] LABS: HEMO FLAGS DIFF FINAL
[2016-07-27 19:18] LABS: APTT (PATIENT) 33.4 SEC (24.3-30.1); PROTHROMBIN TIME - PATIENT 11.5 SEC (9.8-11.6)
[2016-07-27 19:53] LABS: ALKALINE PHOSPHATASE 46 U/L (45-117); ALT (GPT) 392 U/L (10-53); ANION GAP 11 MEQ/L (5-15); AST (GOT) 1291 U/L (15-37); BICARBONATE 38.1 MEQ/L (21.0-32.0); BLOOD UREA NITROGEN 34 MG/DL (7-18); CHLORIDE 90 MEQ/L (98-107); GLOMERULAR FILTRATION RATE 10 ML/MIN (>89); MAGNESIUM 2.1 MG/DL (1.5-2.5); SODIUM (NA) 139 MEQ/L (136-145); TOTAL BILIRUBIN ADULT 2.1 MG/DL (0.2-1.0)
[2016-07-27 20:22] LABS: CREATINE KINASE GREATER THAN 14000 U/L (26-192)
[2016-07-27 20:23] LABS: CALCIUM-PROTEIN CORRECTED 7.1 MG/DL (8.5-10.1); POTASSIUM 2.9 MEQ/L (3.5-5.1)
[2016-07-27 21:06] LABS: MEAN CORPUSCULAR HGB CONC 36.1 % (32.0-36.0)
[2016-07-27 21:11] LABS: CKMB 50.5 NG/ML (0.5-3.6)
[2016-07-27] MEDS: POTASSIUM CL 40 MEQ/30 ML LIQ UDC NG SCH (21:49)
--- NOTE | 2016-07-27 22:38 | HHI.GIFU ---
Subjective Remarks Comfortable in bed no new complaints Objective Vitals I&O Vital Signs Date Time Temp Pulse Resp B/P Pulse Ox O2 Delivery O2 Flow Rate FiO2 07/27/16 20:48 100 Nasal Cannula 2.00 07/27/16 18:00 94 07/27/16 16:00 100 07/27/16 16:00 98.6 97 22 159/104 93 07/27/16 14:00 95 07/27/16 12:00 95 07/27/16 12:00 95 Nasal Cannula 2.00 07/27/16 12:00 99.0 101 14 142/86 96 07/27/16 11:40 99.0 96 14 155/97 95 07/27/16 10:10 99.0 107 16 152/110 95 07/27/16 10:00 100 07/27/16 09:31 98.8 103 18 151/110 99 07/27/16 09:11 99 Nasal Cannula 2.00 07/27/16 08:00 76 07/27/16 08:00 98.8 103 18 151/110 99 07/27/16 06:00 96 07/27/16 04:00 96 07/27/16 04:00 98.8 96 16 145/81 100 07/27/16 02:00 98 07/27/16 01:35 98.8 105 16 116/65 100 07/27/16 01:35 98.4 92 20 128/78 100 07/27/16 00:00 108 07/27/16 00:00 98.8 108 16 123/86 100 07/26/16 23:05 98.2 101 16 117/67 100 07/26/16 23:05 98.2 101 16 117/67 100 I/O 07/26/16 07/26/16 07/26/16 07/27/16 07/27/16 07/27/16 07:00 15:00 23:00 07:00 15:00 23:00 Intake Total 4951 ml 3358 ml 1098 ml 2352 ml 2536 ml Output Total 950 ml 255 ml 800 ml 920 ml 1025 ml Balance 4001 ml 3103 ml 298 ml 1432 ml 1511 ml Intake Oral 530 ml 100 ml 240 ml IV Total 2321 ml 1723 ml 998 ml 1153 ml 1790 ml Albumin 100 ml 100 ml 100 ml Packed Cells 500 ml FFP 227 ml 292 ml Platelets 499 ml Cryoprecipitate 308 ml 214 ml Other 2100 ml 1000 ml Output Urine Total 850 ml 250 ml 250 ml 350 ml 450 ml Stool Total 0 ml 0 ml Drainage Total 550 ml 570 ml 575 ml Estimated Blood Loss 100 ml 5 ml # Bowel Movements 0 2 Laboratory Laboratory Tests Test 07/27/16 07/27/16 07/27/16 07/27/16 06:45 07:10 08:11 16:20 White Blood Count 5.2 Red Blood Count 2.51 Hemoglobin 7.8 Hematocrit 21.9 Mean Corpuscular Volume 87.2 Mean Corpuscular Hemoglobin 31.1 Mean Corpuscular Hemoglobin 35.7 Concent Red Cell Distribution Width 18.0 Platelet Count 65 Mean Platelet Volume 8.5 Neutrophils (%) (Auto) 91.9 Lymphocytes (%) (Auto) 4.5 Monocytes (%) (Auto) 3.5 Eosinophils (%) (Auto) 0.0 Basophils (%) (Auto) 0.1 Neutrophils # (Auto) 4.8 Lymphocytes # (Auto) 0.2 Monocytes # (Auto) 0.2 Eosinophils # (Auto) 0.0 Basophils # (Auto) 0.0 CBC Comment AUTO DIFF Differential Comment AUTO DIFF CONFIRMED Platelet Estimate LOW Platelet Morphology Comment NORMAL Prothrombin Time 13.2 Prothromb Time International 1.2 Ratio Activated Partial 40.2 Thromboplast Time Fibrinogen 133 Sodium Level 137 Potassium Level 3.4 Chloride Level 91 Carbon Dioxide Level 32.7 Anion Gap 13 Blood Urea Nitrogen 33 Creatinine 4.44 Estimat Glomerular Filtration 12 Rate Random Glucose 140 Calcium Level 5.4 Protein Corrected Calcium 6.4 Phosphorus Level 5.0 Magnesium Level 1.8 Total Bilirubin 2.2 Aspartate Amino Transf 2247 (AST/SGOT) Alanine Aminotransferase 458 (ALT/SGPT) Alkaline Phosphatase 35 Total Creatine Kinase GREATER THAN 73098 Creatine Kinase MB 91.0 Creatine Kinase MB % 0.0 Total Protein 4.6 Albumin 3.0 Triglycerides Level 73 Cholesterol Level 65 LDL Cholesterol 26 HDL Cholesterol 24.7 Cholesterol/HDL Ratio 2.63 Lactic Acid Level 4.5 Ammonia 63 Blood Bank Comment Urine Cocaine Screen NEG Test 07/27/16 18:42 White Blood Count 4.5 Red Blood Count 2.50 Hemoglobin 7.7 Hematocrit 21.5 Mean Corpuscular Volume 86.2 Mean Corpuscular Hemoglobin 30.6 Mean Corpuscular Hemoglobin 35.5 Concent Red Cell Distribution Width 18.3 Platelet Count 58 Mean Platelet Volume 8.1 Neutrophils (%) (Auto) 84.2 Lymphocytes (%) (Auto) 10.6 Monocytes (%) (Auto) 4.8 Eosinophils (%) (Auto) 0.0 Basophils (%) (Auto) 0.4 Neutrophils # (Auto) 3.8 Lymphocytes # (Auto) 0.5 Monocytes # (Auto) 0.2 Eosinophils # (Auto) 0.0 Basophils # (Auto) 0.0 CBC Comment DIFF FINAL Differential Comment Prothrombin Time 11.5 Prothromb Time International 1.0 Ratio Activated Partial 33.4 Thromboplast Time Fibrinogen 170 Sodium Level 139 Potassium Level 2.9 Chloride Level 90 Carbon Dioxide Level 38.1 Anion Gap 11 Blood Urea Nitrogen 34 Creatinine 5.00 Estimat Glomerular Filtration 10 Rate Random Glucose 104 Calcium Level 6.0 Protein Corrected Calcium 7.1 Phosphorus Level 4.5 Magnesium Level 2.1 Total Bilirubin 2.1 Aspartate Amino Transf 1291 (AST/SGOT) Alanine Aminotransferase 392 (ALT/SGPT) Alkaline Phosphatase 46 Total Creatine Kinase GREATER THAN 24450 Creatine Kinase MB 50.5 Creatine Kinase MB % 0.0 Troponin I 0.96 Total Protein 4.8 Albumin 2.8 Date/Time Procedure Status Source Growth 07/25/16 16:10 Urine Culture - Final Complete Urine Random Urine Escherichia Coli 07/25/16 14:25 Aerobic Blood Culture - Preliminary Resulted Blood Peripheral NO GROWTH IN 2 DAYS 07/25/16 14:25 Anaerobic Blood Culture - Preliminary Resulted Blood Peripheral NO GROWTH IN 2 DAYS Imaging Last 48 hours Impressions Chest X-Ray 07/27/16 0000 Signed Impressions: Service Date/Time: Wednesday, July 27, 2016 04:29 - CONCLUSION: Possible interval development of mild interstitial process possibly pulmonary edema and slight left lung base atelectasis. Kathy Berry MD Chest X-Ray 07/26/16 0000 Signed Impressions: Service Date/Time: Tuesday, July 26, 2016 04:44 - CONCLUSION: No acute cardiopulmonary disease. Kathy Berry MD Abdomen Ultrasound 07/26/16 0000 Signed Impressions: Service Date/Time: Tuesday, July 26, 2016 10:21 - CONCLUSION: 1. Small amount of free fluid adjacent to the lower poles of both kidneys. 2. Obscuration of the head of the pancreas, distal IVC and aorta due to overlying bowel gas. 3. Otherwise negative. Judson Cee MD Physical Exam CHEST: Chest is clear to auscultation and percussion. CARDIAC: Regular rate and rhythm with no murmur gallop or rubs. ABDOMEN: Soft, nondistended, nontender; no hepatosplenomegaly; bowel sounds are present in all four quadrants. EXTREMITIES: No clubbing, cyanosis, or edema wound VAC noted on lower extremity. SKIN: Normal; no rash; no jaundice. SAWMILL SUPERVISOR: No focal deficits; alert and oriented times three. Assessment and Plan Plan ASSESSMENT: - Elevated LFTs, possibly combination of shocked liver and rhabdomyolysis. Abdomen Ultrasound (07/26/16)----> 1. Small amount of free fluid adjacent to the lower poles of both kidneys. 2. Obscuration of the head of the pancreas, distal IVC and aorta due to overlying bowel gas. 3. Otherwise negative. Abdomen/Pelvis CT (07/25/16)----> 1. Fatty liver and 21 mm right ovarian cyst. Otherwise, no acute abnormality seen within the abdomen or pelvis. 2. Swollen, heterogeneous right hip musculature, primarily gluteus medius and minimus, rectus femoris and vastus lateralis and the adductor muscles. This is nonspecific but suggests a subacute hematoma of these structures. Nothing organized/measurable. 3. Chronic L5 pars defects with grade 2 L5/S1 spondylolisthesis. Toxicology report---- > Acetaminophen less than 2.0, Salicylates less than 1.7, Ethyl alcohol 28, toxicology screen negative- although the patient reports that she does use pills and smoke marijuana. CPK 133,434. Hepatitis panel negative. She does have documented episodes of hypotension. Will order liver work up, avoid hepatotoxins, avoid hypotension. 07/27/16 LFTs appear to be coming down and at this point the pattern is most likely to be of shocked liver that seems to be resolving - AMS, IMPROVED. Xifaxan, Lactulose. - Rhabdomyolysis. IVF per [facility], CPK > 14,000. - Compartment syndrome, s/p fasciotomy, wound vac placement. - Sepsis, elevated lactic acid, likely t/t right thigh compartment syndrome. - Coagulopathy, ? DIC per [facility] - Anemia, 7.9/22.9. - CARLITO, creat 2.97. Plan: -Okay to advance diet - Liver workup - Avoid hypotension - Avoid hepatoxins - Supportive care - Further recommendations to follow based on results of above Karri Monreal MD Jul 27, 2016 22:38
[2016-07-28] VITALS (14 sets, daily range): BP systolic 136–165; BP diastolic 93–113; PULSE 88–115; RESP 16–20; TEMP 98.1–98.6; O2SAT 93–100
[2016-07-28] MEDS: MORPHINE SULFATE 4 MG/ML INJ IV PRN ×5 (01:30→21:00)
[2016-07-28] MEDS: POTASSIUM CL 40 MEQ/30 ML LIQ UDC NG SCH (01:30)
[2016-07-28] MEDS: RESP: ALBUTEROL 2.5 MG/IPRATROPIUM 0.5 MG NEB (SCH) INH (03:53)
[2016-07-28 03:58] LABS: AUTOMATED NEUTROPHIL # 3.4 TH/MM3 (1.8-7.7); BASOPHIL % 0.2 % (0.0-2.0); EOSINOPHIL % 0.2 % (0.0-4.0); HEMATOCRIT 22.4 % (35.0-46.0); LYMPH % 15.7 % (9.0-44.0); LYMPHOCYTE # 0.7 TH/MM3 (1.0-4.8); MEAN CELL VOLUME 87.6 FL (80.0-100.0); MEAN CORPUSCULAR HEMOGLOBIN 31.6 PG (27.0-34.0); MONO % 5.2 % (0.0-8.0); NEUT % 78.7 % (16.0-70.0); PLATELET COUNT 54 TH/MM3 (150-450); RED BLOOD COUNT 2.56 MIL/MM3 (4.00-5.30); RED CELL DISTRIBUTION WIDTH 17.6 % (11.6-17.2); WHITE BLOOD COUNT 4.4 TH/MM3 (4.0-11.0)
[2016-07-28] MEDS: CHLORHEXIDINE GLUCONATE 2 % 1 PACK (2 CLOTHS) TOP SCH (04:00)
[2016-07-28 04:15] LABS: APTT (PATIENT) 32.2 SEC (24.3-30.1); PROTHROMBIN TIME - PATIENT 11.5 SEC (9.8-11.6)
[2016-07-28 04:33] LABS: ALT (GPT) 353 U/L (10-53); ANION GAP 11 MEQ/L (5-15); AST (GOT) 877 U/L (15-37); BICARBONATE 39.5 MEQ/L (21.0-32.0); BLOOD UREA NITROGEN 35 MG/DL (7-18); CHLORIDE 90 MEQ/L (98-107); GLOMERULAR FILTRATION RATE 9 ML/MIN (>89); POTASSIUM 3.5 MEQ/L (3.5-5.1); SODIUM (NA) 140 MEQ/L (136-145)
[2016-07-28 05:03] LABS: ALKALINE PHOSPHATASE 50 U/L (45-117); CALCIUM-PROTEIN CORRECTED 7.8 MG/DL (8.5-10.1); TOTAL BILIRUBIN ADULT 1.7 MG/DL (0.2-1.0)
[2016-07-28 05:08] LABS: CREATINE KINASE GREATER THAN 14000 U/L (26-192)
[2016-07-28] MEDS: SODIUM BICARBONATE 8.4% INJ 150 MEQ in WATER STERILE FOR INJ 850 ML IV SCH (05:27)
[2016-07-28] MEDS: INSULIN NovoLIN REGULAR SUPPLEMENTAL SCALE SQ SCH ×4 (05:27→20:33)
[2016-07-28 05:28] LABS: CKMB 33.6 NG/ML (0.5-3.6)
[2016-07-28] MEDS: LACTULOSE SYRUP 20 GM/30 ML CUP PO SCH ×3 (05:43→20:23)
[2016-07-28 06:03] LABS: HEMO FLAGS AUTO DIFF
[2016-07-28] MEDS: FOLIC ACID 1 MG TAB PO SCH (07:47)
[2016-07-28] MEDS: RIFAXIMIN 550 MG TAB PO SCH ×2 (07:47→20:24)
[2016-07-28] MEDS: MULTIVITAMIN TAB PO SCH (07:47)
[2016-07-28] MEDS: ASPIRIN EC 325 MG TABEC PO SCH (07:47)
[2016-07-28] MEDS: PIPERACIL-TAZO 2.25 GM PREMIX 50 ML IV SCH ×2 (07:48→15:48)
[2016-07-28] MEDS: SENNOSIDES 8.6 MG TAB PO SCH (07:48)
[2016-07-28] MEDS: DOCUSATE SODIUM 100 MG CAP PO SCH (07:48)
[2016-07-28] MEDS: POLYETHYLENE GLYCOL 17 GM PKG PO SCH (07:49)
[2016-07-28] MEDS: SODIUM CHLORIDE 0.9% FLUSH 5 ML FLUSH IV FLUSH SCH ×2 (07:49→20:33)
[2016-07-28] MEDS: ARTIFICIAL TEARS OPTH SOLN 15 ML BTL EACH EYE SCH (07:49)
[2016-07-28] MEDS: THIAMINE INJ 100 MG in SODIUM CHLORIDE 0.9% INJ 100 ML IV SCH (07:51)
[2016-07-28] MEDS: FAMOTIDINE 20 MG/2 ML VIAL IV PUSH SCH (07:51)
[2016-07-28 08:25] LABS: SCAN/DIFF AUTO DIFF CONFIRMED
[2016-07-28 08:27] LABS: PLATELET ESTIMATE SMEAR LOW (NORMAL); PLATELET MORPHOLOGY NORMAL (NORMAL)
--- NOTE | 2016-07-28 08:37 | HHI.CCPN ---
Subjective Remarks/Hospital Course Patient is a 30-year-old female who was brought to the emergency department by the police for medical clearance. Apparently patient was found in bed with her boyfriend this morning who overdosed on drugs. Patient's boyfriend was was found on the bed. In the ER patient reported numbness to the right side of the body and she admits to snorting some cocaine last night. Patient does not recall any of the events overnight or how she got to the hospital. Her drug screen was essentially negative but she admits to cocaine and heroine use. Patient is a very poor historian. EKG shows probable ST elevation V1 and V2 questionable Brugada syndrome. Initially was hypotensive but responded well to IV fluids. Received total 3 L of fluids but remained tachycardic. There were multiple lab abnormalities. Her CBC showed WBC 18.7 with 92% neutrophils. Her chemistry showed potassium of 6.2, BUN of 17 creatinine 2.97, bicarbonate was only 11.2 with an anion gap of 22. Liver enzymes are markedly elevated AST was 6641 ALT was 1419. Patient was hypocalcemic with 6.6 calcium. Lactate came back very elevated at 9.1. Tylenol level was negative. I believe transaminitis is from shocked liver from hypotension-patient denies hepatitis C. CT of the head was negative I evaluated the patient in the ED. She looks critically ill but did not appear to be in distress at this time. Patient denies chest pain. Her troponin came back at 6.24, CPK pending. 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 CK is highly elevated indicating rhabdomyolysis. Dr. Carter does not think this meets criteria for STEMI as the patient is asymptomatic. I did a bedside echo which showed normal ejection fraction no vegetation on the valve on my evaluation. Patient's right thigh is swollen and tense with severe tenderness, distal pulses are palpable but she appears to have compartment syndrome of right thigh. I spoke with Dr. Turner who will evaluate the patient stat for fasciotomy. Continue IV hydration with bicarb infusion 07/26: Afebrile. Complaining of "tingling" in hands. Complains of being dehydrated. Complains of pain in her right thigh. Resting in bed and appears to be in no acute distress. 07/27: Afebrile. Mentation much improved this AM. 350 cc urine output past 12 hours. History status post wound VAC placement to the right thigh. Transfuse 2 units PRBCs and 2 pack platelets overnight. A.m. labs all pending. Hemodynamically stable. Subjective 07/28: Afebrile. Patient complaining of menstrual cycle bleeding. Increasing urine output overnight. Wound VAC with 1575 output. Hemoglobin stable. Currently getting potassium replacement. Objective Vital Signs Date Time Temp Pulse Resp B/P Pulse Ox O2 Delivery O2 Flow Rate FiO2 07/28/16 06:00 101 07/28/16 04:00 98.5 20 154/96 94 07/27/16 20:48 Nasal Cannula 2.00 07/26/16 07:57 21 Intake and Output 07/27/16 07/27/16 07/28/16 08:00 16:00 00:00 Intake Total 2352 ml 2536 ml 1423 ml Output Total 920 ml 1025 ml 1120 ml Balance 1432 ml 1511 ml 303 ml Result Diagram: 07/28/16 0334 07/28/16 0334 Other Results Last Impressions Chest X-Ray 07/27/16 0000 Signed Impressions: Service Date/Time: Wednesday, July 27, 2016 04:29 - CONCLUSION: Possible interval development of mild interstitial process possibly pulmonary edema and slight left lung base atelectasis. Kathy Berry MD Abdomen Ultrasound 07/26/16 0000 Signed Impressions: Service Date/Time: Tuesday, July 26, 2016 10:21 - CONCLUSION: 1. Small amount of free fluid adjacent to the lower poles of both kidneys. 2. Obscuration of the head of the pancreas, distal IVC and aorta due to overlying bowel gas. 3. Otherwise negative. Judson Cee MD Lower Extremity CT 07/25/16 0000 Signed Impressions: Service Date/Time: Monday, July 25, 2016 18:54 - CONCLUSION: Extensive nonspecific myositis of the right thigh, also involves gluteus medius and minimus proximally and at least medial gastrocnemius below the knee. Infectious/inflammatory and ischemic etiologies would be in the differential. No gas bubbles are seen to substantiate necrotizing fasciitis. No organized/drainable abscess. Glenroy Sheffield MD Hip and Pelvis X-Ray 07/25/16 0000 Signed Impressions: Service Date/Time: Monday, July 25, 2016 16:52 - CONCLUSION: Intact pelvis and right hip. Nonspecific surrounding soft tissue swelling Glenroy Sheffield MD Head CT 07/25/16 0000 Signed Impressions: Service Date/Time: Monday, July 25, 2016 14:38 - CONCLUSION: Negative noncontrast head CT. Glenroy Sheffield MD Chest CT 07/25/16 0000 Signed Impressions: Service Date/Time: Monday, July 25, 2016 16:37 - CONCLUSION: Focal dense consolidation right middle lobe, nonspecific but most likely infectious or inflammatory. Also a 3 mm right basilar pulmonary nodule Followup noncontrast chest CT in a few months recommended to confirm resolution/stability. Glenroy Sheffield MD Abdomen/Pelvis CT 07/25/16 0000 Signed Impressions: Service Date/Time: Monday, July 25, 2016 16:37 - CONCLUSION: 1. Fatty liver and 21 mm right ovarian cyst. Otherwise, no acute abnormality seen within the abdomen or pelvis. 2. Swollen, heterogeneous right hip musculature, primarily gluteus medius and minimus, rectus femoris and vastus lateralis and the adductor muscles. This is nonspecific but suggests a subacute hematoma of these structures. Nothing organized/measurable. 3. Chronic L5 pars defects with grade 2 L5/S1 spondylolisthesis. Glenroy Sheffield MD Imaging Last Impressions Chest X-Ray 07/27/16 0000 Signed Impressions: Service Date/Time: Wednesday, July 27, 2016 04:29 - CONCLUSION: Possible interval development of mild interstitial process possibly pulmonary edema and slight left lung base atelectasis. Kathy Berry MD Abdomen Ultrasound 07/26/16 0000 Signed Impressions: Service Date/Time: Tuesday, July 26, 2016 10:21 - CONCLUSION: 1. Small amount of free fluid adjacent to the lower poles of both kidneys. 2. Obscuration of the head of the pancreas, distal IVC and aorta due to overlying bowel gas. 3. Otherwise negative. Judson Cee MD Lower Extremity CT 07/25/16 0000 Signed Impressions: Service Date/Time: Monday, July 25, 2016 18:54 - CONCLUSION: Extensive nonspecific myositis of the right thigh, also involves gluteus medius and minimus proximally and at least medial gastrocnemius below the knee. Infectious/inflammatory and ischemic etiologies would be in the differential. No gas bubbles are seen to substantiate necrotizing fasciitis. No organized/drainable abscess. Glenroy Sheffield MD Hip and Pelvis X-Ray 07/25/16 0000 Signed Impressions: Service Date/Time: Monday, July 25, 2016 16:52 - CONCLUSION: Intact pelvis and right hip. Nonspecific surrounding soft tissue swelling Glenroy Sheffield MD Head CT 07/25/16 0000 Signed Impressions: Service Date/Time: Monday, July 25, 2016 14:38 - CONCLUSION: Negative noncontrast head CT. Glenroy Sheffield MD Chest CT 07/25/16 0000 Signed Impressions: Service Date/Time: Monday, July 25, 2016 16:37 - CONCLUSION: Focal dense consolidation right middle lobe, nonspecific but most likely infectious or inflammatory. Also a 3 mm right basilar pulmonary nodule Followup noncontrast chest CT in a few months recommended to confirm resolution/stability. Glenroy Sheffield MD Abdomen/Pelvis CT 07/25/16 0000 Signed Impressions: Service Date/Time: Monday, July 25, 2016 16:37 - CONCLUSION: 1. Fatty liver and 21 mm right ovarian cyst. Otherwise, no acute abnormality seen within the abdomen or pelvis. 2. Swollen, heterogeneous right hip musculature, primarily gluteus medius and minimus, rectus femoris and vastus lateralis and the adductor muscles. This is nonspecific but suggests a subacute hematoma of these structures. Nothing organized/measurable. 3. Chronic L5 pars defects with grade 2 L5/S1 spondylolisthesis. Glenroy Sheffield MD Objective Remarks GENERAL: 30-year-old female. Critically ill currently resting in bed in no acute distress SKIN: Warm and dry. No rash. HEAD: Atraumatic. Normocephalic. EYES: Pupils equal and round about 3 mm bilaterally and reactive. No scleral icterus. No injection or drainage. ENT: No nasal bleeding or discharge. Mucous membranes dry and pink NECK: Trachea midline. No JVD. CARDIOVASCULAR: RRR. S1, S2. No S4. Faint 2/6 murmur RESPIRATORY: Few crackles appreciated in bases bilaterally. Breath sounds equal bilaterally. GASTROINTESTINAL: Abdomen soft, non-tender, nondistended. Hepatomegaly. Hypoactive bowel sounds. Abrasions. MUSCULOSKELETAL: Right thigh currently with wound VAC lateral aspect. CHAZ 100 cc serosanguineous drainage. Right hip tender with restricted mobility. NEUROLOGICAL: Awake and alert. Motor grossly within normal limits. Normal speech. Weakness to right leg most likely secondary to pain A/P Assessment and Plan NEURO: Altered mental status Polysubstance abuse with drug overdose including cocaine/heroin Right upper extremity numbness History of THC use EtOH -Watch for alcohol and drug withdrawal, Use PRN Ativan and morphine -Complains of mild numbness of right upper extremity, -CT of the head 07/25 revealed no acute intracranial findings -Started on aspirin for elevated troponin. -Thiamine 100 mg IV daily along with multivitamin and folate daily RESP: Mild Respiratory insufficiency secondary to pneumonia/metabolic acidosis Small consolidation right middle lobe\\ Right basilar pulmonary nodule 3 mm - follow-up CT chest 3 months recommended Ongoing tobaccoism -Nasal cannula oxygen to maintain saturations greater than equal to 92% -Incentive spirometry while awake -CT chest 07/25 revealed right middle lobe infiltrate along with 3 mm right basilar pulmonary nodule. -Chest x-ray 07/26 reveals no significant cardio pulmonary findings -DuoNeb every 2 hours when necessary -See ID section for broad-spectrum antibiotics CV: Elevated troponin Severe lactic acidosis - resolved ST elevation in V1 and V2 - bicarbonate infusion at 150 ML per hour for rhabdo -Discussed extensively with Dr. Carter, does not meet criteria for STEMI -Continue aspirin 81 mg daily, will not use beta blockers due to cocaine abuse -2d echo revealed EF 60-65%. NRWMA. Lactic acid has cleared GI: Transaminitis Rhabdomyolysis Hyperammonia -Transaminitis most likely secondary to shock/rhabdo -CT of the abdomen and pelvis shows fatty liver/21 mm right ovarian cyst -Negative hepatitis panel -Tolerating clear liquid diet . As per surgery -IV Pepcid - Xifaxan 550 twice a day/lactulose 30 3 times a day for elevated ammonia. Recheck in AM with 65 - 5 bm overnight /Renal: Acute kidney failure Hyperkalemia - resolved Acute rhabdomyolysis Severe anion gap metabolic acidosis -Continue sterile water with 3 ampules sodium bicarbonate at 150 ML per hour -07/26 renal ultrasound revealed fluid of at poles of bilateral kidneys otherwise negative -Strict intake output. -Urine electrolytes intrinsic renal process/urine eosinophils negative. - Nephrology consult. Possibly hemodialysis [place]: Right ovarian cyst Beta hCG 1 ID: Severe sepsis Escherichia coli UTI -Source likely secondary to right thigh compartment syndrome -Continue vancomycin and Zosyn day #4 -Infectious disease consult. Small consolidation in the right middle lobe unlikely to be source of severe sepsis -Rule out infective endocarditis echocardiogram today Pertinent cultures 07/25 - blood cultures 2 -no growth 07/25 - urine culture -Escherichia coli HEME: Macrocytic anemia Thrombocytopenia -Monitor CBC, CMP, coags in a.m. - Transfused total 4 units PRBCs, 2 pack platelets, 2 FFP 2 cryo-since admission ENDO: -Sliding-scale insulin if clinically indicated FEN: Hypocalcemia Hypopotassemia Received 40 mEq KCl 1 tonight Replace electrolytes as clinically indicated. Currently on clear liquid diet Msk: Right medial/lateral thigh compartment syndrome L5/S1 spondylolisthesis Status post day [address] Turner - wound VAC placement postop day 1 - 1575 from wound VAC overnight. 495 SS from CHAZ PROPH: -Left lower extremity SCDs. Heparin 5000 units subcutaneous twice a day held in light of decreasing platelet/bleeding LINES: -Utilize peripheral IVs, central line if needed Critical Care: The total critical care time was 45 minutes. Time to perform other separately billable procedures was not included in the critical care time. Wiliam Barron MD Jul 28, 2016 08:37
[2016-07-28 09:24] LABS: MEAN CORPUSCULAR HGB CONC 36.3 % (32.0-36.0)
[2016-07-28] MEDS ORDERED: NITROGLYCERIN 2% OINT 1 GM PACKET TOPICAL PRN (09:30)
[2016-07-28] MEDS: amLODIPine BESYLATE 5 MG TAB PO SCH (10:29)
[2016-07-28] MEDS: VANCOMYCIN INJ 1,000 MG in SODIUM CHLOR 0.9% 250 ML INJ 250 ML IV SCH (10:30)
--- NOTE | 2016-07-28 10:35 | MP ---
cc: SAW JOYA MD DATE OF SURGERY: 07/25/2016 PREOPERATIVE DIAGNOSIS Rhabdomyolysis compartment syndrome of the right thigh. POSTOPERATIVE DIAGNOSIS Rhabdomyolysis compartment syndrome of the right thigh. OPERATIVE PROCEDURE Medial and lateral fasciotomy and compartment release of the thigh with right gluteal area. SURGEON Dr. Joya. ANESTHESIA General. ESTIMATED BLOOD LOSS 50 ccs. INDICATIONS FOR PROCEDURE This 30-year-old female was admitted apparently today after a drug overdose. She was lying on the ground for a long time and developed rhabdomyolysis and she was noted to have increased pressure in her right leg and increased circumference of her right thigh, so I was asked to see the patient. The patient clearly has a thigh compartment syndrome. PROCEDURE The patient was prepped and draped in the usual fashion. First a medial incision was made over the most prominent portion of the medial thigh bulge in the area of the adductor muscles. This was deepened down to the fascia and small veins clamped, divided and ligated with 3-0 silks and now the fascia is opened and the medial compartment muscles, i.e., adductors bulge out violently. There is significant swelling in the muscles, inflammation and some actual necrotic areas, already, the muscle is grayish-purple. These are cauterized off and debrided. This was a very small amount though. The rest of the muscle is water-logged and very swollen. Now this was done, the lateral compartment is attended, incision starting just below the iliac crest over the gluteal area down and then straight toward trochanter and the lateral condyle of the tibia and femur. The incision is deepened to the fascia and fascia was now opened longitudinally. Again, muscle bulges out. Very carefully the vastus medialis is from the rectus femoris and then posteriorly, the biceps is also freed up in order to allow all compartments to release. Muscle bulges out a lot but appears to be very viable. The area was irrigated with copious amounts of saline, wet-to-dry dressing and Navid applied. The patient tolerated the procedure well. At the end of the procedure the patient has bounding palpable pulses in the leg. Saw ELDER/OCTAVIO /9:09 PM /10:17 AM
--- NOTE | 2016-07-28 10:46 | HHI.NPPN ---
Subjective History of Present Illness 30 year old female with drug OD, Rt thigh compartment syndrome s/p Fasciotomy, Rhabdomyolysis, ARF Review of Systems General Constitutional: Fatigue Musculoskeletal MS: Pain/Stiffness Objective Data Data 07/27/16 07/28/16 19:00 07:00 Intake Total 2536 ml 2680 ml Output Total 1025 ml 2470 ml Balance 1511 ml 210 ml Intake Oral 240 ml 500 ml IV Total 1790 ml 2180 ml FFP 292 ml Cryoprecipitate 214 ml Output Urine Total 450 ml 1050 ml Drainage Total 575 ml 1420 ml # Bowel Movements 2 3 Vital Signs Date Time Temp Pulse Resp B/P Pulse Ox O2 Delivery O2 Flow Rate FiO2 07/28/16 09:16 98 Nasal Cannula 2.00 07/28/16 08:00 98.1 106 17 165/113 94 07/28/16 08:00 91 07/28/16 07:00 97 Nasal Cannula 2.00 07/28/16 06:00 101 07/28/16 04:00 98.5 106 20 154/96 94 07/28/16 04:00 106 07/28/16 02:00 98 07/28/16 00:00 93 07/28/16 00:00 98.5 94 20 163/99 95 07/27/16 22:00 92 07/27/16 20:48 100 Nasal Cannula 2.00 07/27/16 20:00 99.0 95 16 138/89 97 07/27/16 20:00 95 07/27/16 19:00 97 Nasal Cannula 2.00 07/27/16 18:00 94 07/27/16 16:00 100 07/27/16 16:00 98.6 97 22 159/104 93 07/27/16 14:00 95 07/27/16 12:00 95 07/27/16 12:00 95 Nasal Cannula 2.00 07/27/16 12:00 99.0 101 14 142/86 96 07/27/16 11:40 99.0 96 14 155/97 95 -: 07/28/16 0334 07/28/16 0334 Physical Exam General Appearance: Well Developed, Well Nourished Neck Neck Exam: Neck Supple Pulmonary Resp Exam: Clear Bilaterally, Breath Sounds Equal Cardiology CV Exam: Regular, Normal Sinus Rhythm Gastrointestinal/Abdomen GI Exam: Soft, Non-Tender, Bowel Sounds Present Extremeties Extremities Exam: Trace Edema Extremeties Remarks Rt thigh vacuum dressing Assessment/Plan Problem List: (1) Acute kidney failure Plan: This is likely due to rhabdomyolysis and acute tubular necrosis Non oliguric UOP 1.5 L Cr higher 5.4 monitor for improvement consider dialysis if uremic on bicarb drip may decrease Bicarbonate in IVF sterile water add 100 meq NaHO3/ KCL 20 meq change Vancomycin to q 48 hrs as Random Vancomycin level 35.6 (2) Compartment syndrome of right lower extremity Plan: Status post surgery (3) SIRS (systemic inflammatory response syndrome) Plan: Continue with broad-spectrum antibiotics (4) UTI (urinary tract infection) Plan: On Zosyn (5) Severe sepsis Plan: Status post fasciotomy right leg (6) Small right middle lobe consolidation Plan: On antibiotics Problem Qualifiers (1) Acute kidney failure: Qualified Code: N17.9 - Acute renal failure, unspecified acute renal failure type Vinny Fletcher MD Jul 28, 2016 10:46
[2016-07-28] MEDS ORDERED: SODIUM BICARBONATE IV SCH ×2 (10:52→11:07)
[2016-07-28] MEDS ORDERED: POTASSIUM CHLORIDE IV SCH ×2 (10:52→11:07)
[2016-07-28] MEDS ORDERED: [UNRECOGNIZED DRUG - OTHER] IV SCH ×2 (10:52→11:07)
[2016-07-28] MEDS: hydrALAZINE HCL 20 MG/ML VIAL IV PUSH PRN ×2 (11:07→14:31)
[2016-07-28] MEDS: POTASSIUM CHLORIDE IV SCH ×2 (11:26→17:55)
[2016-07-28] MEDS: [UNRECOGNIZED DRUG - OTHER] IV SCH ×2 (11:26→17:55)
[2016-07-28] MEDS: SODIUM BICARBONATE IV SCH ×2 (11:26→17:55)
--- NOTE | 2016-07-28 12:17 | PD.CARD.PN ---
Subjective Subjective Remarks asleep in nad Objective Vital Signs / I&O Vital Signs Date Time Temp Pulse Resp B/P Pulse Ox O2 Delivery O2 Flow Rate FiO2 07/28/16 12:00 102 07/28/16 12:00 98.3 102 17 141/93 93 07/28/16 10:00 109 07/28/16 09:16 98 Nasal Cannula 2.00 07/28/16 08:00 98.1 106 17 165/113 94 07/28/16 08:00 91 07/28/16 07:00 97 Nasal Cannula 2.00 07/28/16 06:00 101 07/28/16 04:00 98.5 106 20 154/96 94 07/28/16 04:00 106 07/28/16 02:00 98 07/28/16 00:00 93 07/28/16 00:00 98.5 94 20 163/99 95 07/27/16 22:00 92 07/27/16 20:48 100 Nasal Cannula 2.00 07/27/16 20:00 99.0 95 16 138/89 97 07/27/16 20:00 95 07/27/16 19:00 97 Nasal Cannula 2.00 07/27/16 18:00 94 07/27/16 16:00 100 07/27/16 16:00 98.6 97 22 159/104 93 07/27/16 14:00 95 I/O 07/27/16 07/27/16 07/27/16 07/28/16 07/28/16 07/28/16 07:00 15:00 23:00 07:00 15:00 23:00 Intake Total 2352 ml 2536 ml 1423 ml 1257 ml Output Total 920 ml 1025 ml 1120 ml 1350 ml Balance 1432 ml 1511 ml 303 ml -93 ml Intake Oral 100 ml 240 ml 300 ml 200 ml IV Total 1153 ml 1790 ml 1123 ml 1057 ml Albumin 100 ml Packed Cells 500 ml FFP 292 ml Platelets 499 ml Cryoprecipitate 214 ml Output Urine Total 350 ml 450 ml 550 ml 500 ml Stool Total 0 ml Drainage Total 570 ml 575 ml 570 ml 850 ml # Bowel Movements 2 3 0 Physical Exam GENERAL: SKIN: Warm and dry. HEAD: Normocephalic. EYES: No scleral icterus. No injection or drainage. NECK: Supple, trachea midline. No JVD or lymphadenopathy. CARDIOVASCULAR: Regular rate and rhythm without murmurs, gallops, or rubs. RESPIRATORY: Breath sounds equal bilaterally. No accessory muscle use. GASTROINTESTINAL: Abdomen soft, non-tender, nondistended. MUSCULOSKELETAL: No cyanosis, or edema. BACK: Nontender without obvious deformity. No CVA tenderness. Laboratory Laboratory Tests Test 07/27/16 07/27/16 07/28/16 16:20 18:42 03:34 Urine Cocaine Screen NEG White Blood Count 4.5 TH/MM3 4.4 TH/MM3 Red Blood Count 2.50 MIL/MM3 2.56 MIL/MM3 Hemoglobin 7.7 GM/DL 8.1 GM/DL Hematocrit 21.5 % 22.4 % Mean Corpuscular Volume 86.2 FL 87.6 FL Mean Corpuscular Hemoglobin 30.6 PG 31.6 PG Mean Corpuscular Hemoglobin 35.5 % 36.1 % Concent Red Cell Distribution Width 18.3 % 17.6 % Platelet Count 58 TH/MM3 54 TH/MM3 Mean Platelet Volume 8.1 FL 8.1 FL Neutrophils (%) (Auto) 84.2 % 78.7 % Lymphocytes (%) (Auto) 10.6 % 15.7 % Monocytes (%) (Auto) 4.8 % 5.2 % Eosinophils (%) (Auto) 0.0 % 0.2 % Basophils (%) (Auto) 0.4 % 0.2 % Neutrophils # (Auto) 3.8 TH/MM3 3.4 TH/MM3 Lymphocytes # (Auto) 0.5 TH/MM3 0.7 TH/MM3 Monocytes # (Auto) 0.2 TH/MM3 0.2 TH/MM3 Eosinophils # (Auto) 0.0 TH/MM3 0.0 TH/MM3 Basophils # (Auto) 0.0 TH/MM3 0.0 TH/MM3 CBC Comment DIFF FINAL AUTO DIFF Differential Comment AUTO DIFF CONFIRMED Prothrombin Time 11.5 SEC 11.5 SEC Prothromb Time International 1.0 RATIO 1.0 RATIO Ratio Activated Partial 33.4 SEC 32.2 SEC Thromboplast Time Fibrinogen 170 mg/dL Sodium Level 139 MEQ/L 140 MEQ/L Potassium Level 2.9 MEQ/L 3.5 MEQ/L Chloride Level 90 MEQ/L 90 MEQ/L Carbon Dioxide Level 38.1 MEQ/L 39.5 MEQ/L Anion Gap 11 MEQ/L 11 MEQ/L Blood Urea Nitrogen 34 MG/DL 35 MG/DL Creatinine 5.00 MG/DL 5.45 MG/DL Estimat Glomerular Filtration 10 ML/MIN 9 ML/MIN Rate Random Glucose 104 MG/DL 91 MG/DL Calcium Level 6.0 MG/DL 6.5 MG/DL Protein Corrected Calcium 7.1 MG/DL 7.8 MG/DL Phosphorus Level 4.5 MG/DL 4.6 MG/DL Magnesium Level 2.1 MG/DL 2.0 MG/DL Total Bilirubin 2.1 MG/DL 1.7 MG/DL Aspartate Amino Transf 1291 U/L 877 U/L (AST/SGOT) Alanine Aminotransferase 392 U/L 353 U/L (ALT/SGPT) Alkaline Phosphatase 46 U/L 50 U/L Total Creatine Kinase GREATER THAN GREATER THAN 39683 U/L 59362 U/L Creatine Kinase MB 50.5 NG/ML 33.6 NG/ML Creatine Kinase MB % 0.0 % 0.0 % Troponin I 0.96 NG/ML Total Protein 4.8 GM/DL 4.6 GM/DL Albumin 2.8 GM/DL 2.6 GM/DL Platelet Estimate LOW Platelet Morphology Comment NORMAL Ammonia 65 MCMOL/L Random Vancomycin Level 35.6 COMMENT Assessment and Plan Problem List: (1) Drug overdose (2) Hypocalcemia (3) SIRS (systemic inflammatory response syndrome) (4) Renal failure (5) Hyperkalemia (6) Lactic acidosis (7) Altered mental status (8) Severe sepsis (9) Elevated troponin (10) Severe metabolic acidosis (11) Acute kidney failure (12) Leukocytosis (13) Hip hematoma, right (14) Small right middle lobe consolidation (15) Rhabdomyolysis (16) Compartment syndrome of right lower extremity Assessment and Plan 1.) Elevated troponin - suspect d/t global hypoperfusion d/t hypotension form sepsis, ef=65%, patient is assymptomatic, trop trending down 2.) POD 2 - stable Problem Qualifiers (1) Drug overdose: Qualified Code: T50.904A - Drug overdose, undetermined intent, initial encounter (2) Acute kidney failure: Qualified Code: N17.9 - Acute renal failure, unspecified acute renal failure type (3) Leukocytosis: Qualified Code: D72.829 - Leukocytosis, unspecified type Luis Eduardo Carter MD Jul 28, 2016 12:16
--- NOTE | 2016-07-28 14:42 | PD.CAR.PN ---
CVT Progress Note Subjective/Hospital Course: Patient with clinical findings of medial and lateral thigh compartment syndrome For OR now Thanks Delaney 07/26/16 Patient underwent yesterday and medial and lateral fasciotomy of the thigh debridement Today she underwent washout the both, closure of the medial fasciotomy skin and wound VAC placement on lateral fasciotomy The lateral fasciotomy will need wound VAC for but 2 weeks and then this can be covered with the partial-thickness skin graft by plastic surgery 07/27/16 Status post the thigh compartment syndrome with medial and lateral fasciotomy of the right leg Yesterday patient went for washout closure and drainage of the medial fasciotomy site while the lateral fasciotomy from hip to the knee remains open Wound VAC in place Hemoglobin now stable and there is no other source of bleeding Patient was in active DIC and fibrinolysis for the first 48 hours and this is now abating Agree with blood and blood products administration Platelets remain stable and unless these drop on the 30,000 would probably not transfuse Patient can be out of bed and should be bearing weight on this leg as much as possible 07/28/16 CHAZ drainage from the medial closure of the thighs decreased but I will leave it in till the swelling decreases and the third space abates for otherwise patient will develop a seroma in this area Lateral incision now covered with a wound VAC is draining minimally Hemoglobin remains stable Plan Starting tomorrow will have wound care assist with changing wound VAC at the bedside and I will consult plastic surgery for grafting of the wound in the near future Objective: Vital Signs Date Time Temp Pulse Resp B/P Pulse Ox O2 Delivery O2 Flow Rate FiO2 07/28/16 14:00 115 07/28/16 12:00 102 07/28/16 12:00 98.3 102 17 141/93 93 07/28/16 10:00 109 07/28/16 09:16 98 Nasal Cannula 2.00 07/28/16 08:00 98.1 106 17 165/113 94 07/28/16 08:00 91 07/28/16 07:00 97 Nasal Cannula 2.00 07/28/16 06:00 101 07/28/16 04:00 98.5 106 20 154/96 94 07/28/16 04:00 106 07/28/16 02:00 98 07/28/16 00:00 93 07/28/16 00:00 98.5 94 20 163/99 95 07/27/16 22:00 92 07/27/16 20:48 100 Nasal Cannula 2.00 07/27/16 20:00 99.0 95 16 138/89 97 07/27/16 20:00 95 07/27/16 19:00 97 Nasal Cannula 2.00 07/27/16 18:00 94 07/27/16 16:00 100 07/27/16 16:00 98.6 97 22 159/104 93 Labs: Laboratory Tests Test 07/28/16 03:34 White Blood Count 4.4 TH/MM3 (4.0-11.0) Red Blood Count 2.56 MIL/MM3 (4.00-5.30) Hemoglobin 8.1 GM/DL (11.6-15.3) Hematocrit 22.4 % (35.0-46.0) Mean Corpuscular Volume 87.6 FL (80.0-100.0) Mean Corpuscular Hemoglobin 31.6 PG (27.0-34.0) Mean Corpuscular Hemoglobin 36.1 % Concent (32.0-36.0) Red Cell Distribution Width 17.6 % (11.6-17.2) Platelet Count 54 TH/MM3 (150-450) Mean Platelet Volume 8.1 FL (7.0-11.0) Neutrophils (%) (Auto) 78.7 % (16.0-70.0) Lymphocytes (%) (Auto) 15.7 % (9.0-44.0) Monocytes (%) (Auto) 5.2 % (0.0-8.0) Eosinophils (%) (Auto) 0.2 % (0.0-4.0) Basophils (%) (Auto) 0.2 % (0.0-2.0) Neutrophils # (Auto) 3.4 TH/MM3 (1.8-7.7) Lymphocytes # (Auto) 0.7 TH/MM3 (1.0-4.8) Monocytes # (Auto) 0.2 TH/MM3 (0-0.9) Eosinophils # (Auto) 0.0 TH/MM3 (0-0.4) Basophils # (Auto) 0.0 TH/MM3 (0-0.2) CBC Comment AUTO DIFF Differential Comment AUTO DIFF CONFIRMED Platelet Estimate LOW (NORMAL) Platelet Morphology Comment NORMAL (NORMAL) Prothrombin Time 11.5 SEC (9.8-11.6) Prothromb Time International 1.0 RATIO Ratio Activated Partial 32.2 SEC Thromboplast Time (24.3-30.1) Sodium Level 140 MEQ/L (136-145) Potassium Level 3.5 MEQ/L (3.5-5.1) Chloride Level 90 MEQ/L (98-107) Carbon Dioxide Level 39.5 MEQ/L (21.0-32.0) Anion Gap 11 MEQ/L (5-15) Blood Urea Nitrogen 35 MG/DL (7-18) Creatinine 5.45 MG/DL (0.50-1.00) Estimat Glomerular Filtration 9 ML/MIN (>89) Rate Random Glucose 91 MG/DL (74-106) Calcium Level 6.5 MG/DL (8.5-10.1) Protein Corrected Calcium 7.8 MG/DL (8.5-10.1) Phosphorus Level 4.6 MG/DL (2.5-4.9) Magnesium Level 2.0 MG/DL (1.5-2.5) Total Bilirubin 1.7 MG/DL (0.2-1.0) Aspartate Amino Transf 877 U/L (15-37) (AST/SGOT) Alanine Aminotransferase 353 U/L (10-53) (ALT/SGPT) Alkaline Phosphatase 50 U/L (45-117) Ammonia 65 MCMOL/L (11-32) Total Creatine Kinase GREATER THAN 61203 U/L (26-192) Creatine Kinase MB 33.6 NG/ML (0.5-3.6) Creatine Kinase MB % 0.0 % (0.0-4.0) Total Protein 4.6 GM/DL (6.4-8.2) Albumin 2.6 GM/DL (3.4-5.0) Random Vancomycin Level 35.6 COMMENT Result Diagram: 07/28/16 0334 07/28/16 0334 (1) Drug overdose (2) Hypocalcemia (3) SIRS (systemic inflammatory response syndrome) (4) Renal failure (5) Hyperkalemia (6) Lactic acidosis (7) Altered mental status (8) Severe sepsis (9) Elevated troponin (10) Severe metabolic acidosis (11) Acute kidney failure (12) Leukocytosis (13) Hip hematoma, right (14) Small right middle lobe consolidation (15) Rhabdomyolysis (16) Compartment syndrome of right lower extremity Problem Qualifiers (1) Drug overdose: Qualified Code: T50.904A - Drug overdose, undetermined intent, initial encounter (2) Acute kidney failure: Qualified Code: N17.9 - Acute renal failure, unspecified acute renal failure type (3) Leukocytosis: Qualified Code: D72.829 - Leukocytosis, unspecified type Saw Turner MD Jul 28, 2016 14:41
--- NOTE | 2016-07-28 15:44 | HHI.GIFU ---
Subjective Remarks Resting in bed. States she remembers taking something, but she does not remember what this was. States she does not recall injecting anything. Does not take Tylenol or Tylenol products at home. (Sangeeta Dixon) Objective Vitals I&O Vital Signs Date Time Temp Pulse Resp B/P Pulse Ox O2 Delivery O2 Flow Rate FiO2 07/28/16 14:00 115 07/28/16 12:00 102 07/28/16 12:00 98.3 102 17 141/93 93 07/28/16 10:00 109 07/28/16 09:16 98 Nasal Cannula 2.00 07/28/16 08:00 98.1 106 17 165/113 94 07/28/16 08:00 91 07/28/16 07:00 97 Nasal Cannula 2.00 07/28/16 06:00 101 07/28/16 04:00 98.5 106 20 154/96 94 07/28/16 04:00 106 07/28/16 02:00 98 07/28/16 00:00 93 07/28/16 00:00 98.5 94 20 163/99 95 07/27/16 22:00 92 07/27/16 20:48 100 Nasal Cannula 2.00 07/27/16 20:00 99.0 95 16 138/89 97 07/27/16 20:00 95 07/27/16 19:00 97 Nasal Cannula 2.00 07/27/16 18:00 94 07/27/16 16:00 100 07/27/16 16:00 98.6 97 22 159/104 93 I/O 07/27/16 07/27/16 07/27/16 07/28/16 07/28/16 07/28/16 07:00 15:00 23:00 07:00 15:00 23:00 Intake Total 2352 ml 2536 ml 1423 ml 1257 ml 1720 ml Output Total 920 ml 1025 ml 1120 ml 1350 ml 1700 ml Balance 1432 ml 1511 ml 303 ml -93 ml 20 ml Intake Oral 100 ml 240 ml 300 ml 200 ml 480 ml IV Total 1153 ml 1790 ml 1123 ml 1057 ml 1240 ml Albumin 100 ml Packed Cells 500 ml FFP 292 ml Platelets 499 ml Cryoprecipitate 214 ml Output Urine Total 350 ml 450 ml 550 ml 500 ml 850 ml Stool Total 0 ml Drainage Total 570 ml 575 ml 570 ml 850 ml 850 ml # Bowel Movements 2 3 0 2 Laboratory Laboratory Tests Test 07/27/16 07/27/16 07/28/16 16:20 18:42 03:34 Urine Cocaine Screen NEG White Blood Count 4.5 4.4 Red Blood Count 2.50 2.56 Hemoglobin 7.7 8.1 Hematocrit 21.5 22.4 Mean Corpuscular Volume 86.2 87.6 Mean Corpuscular Hemoglobin 30.6 31.6 Mean Corpuscular Hemoglobin 35.5 36.1 Concent Red Cell Distribution Width 18.3 17.6 Platelet Count 58 54 Mean Platelet Volume 8.1 8.1 Neutrophils (%) (Auto) 84.2 78.7 Lymphocytes (%) (Auto) 10.6 15.7 Monocytes (%) (Auto) 4.8 5.2 Eosinophils (%) (Auto) 0.0 0.2 Basophils (%) (Auto) 0.4 0.2 Neutrophils # (Auto) 3.8 3.4 Lymphocytes # (Auto) 0.5 0.7 Monocytes # (Auto) 0.2 0.2 Eosinophils # (Auto) 0.0 0.0 Basophils # (Auto) 0.0 0.0 CBC Comment DIFF FINAL AUTO DIFF Differential Comment AUTO DIFF CONFIRMED Prothrombin Time 11.5 11.5 Prothromb Time International 1.0 1.0 Ratio Activated Partial 33.4 32.2 Thromboplast Time Fibrinogen 170 Sodium Level 139 140 Potassium Level 2.9 3.5 Chloride Level 90 90 Carbon Dioxide Level 38.1 39.5 Anion Gap 11 11 Blood Urea Nitrogen 34 35 Creatinine 5.00 5.45 Estimat Glomerular Filtration 10 9 Rate Random Glucose 104 91 Calcium Level 6.0 6.5 Protein Corrected Calcium 7.1 7.8 Phosphorus Level 4.5 4.6 Magnesium Level 2.1 2.0 Total Bilirubin 2.1 1.7 Aspartate Amino Transf 1291 877 (AST/SGOT) Alanine Aminotransferase 392 353 (ALT/SGPT) Alkaline Phosphatase 46 50 Total Creatine Kinase GREATER THAN GREATER THAN 99228 49938 Creatine Kinase MB 50.5 33.6 Creatine Kinase MB % 0.0 0.0 Troponin I 0.96 Total Protein 4.8 4.6 Albumin 2.8 2.6 Platelet Estimate LOW Platelet Morphology Comment NORMAL Ammonia 65 Random Vancomycin Level 35.6 Date/Time Procedure Status Source Growth 07/25/16 16:10 Urine Culture - Final Complete Urine Random Urine Escherichia Coli 07/25/16 14:25 Aerobic Blood Culture - Preliminary Resulted Blood Peripheral NO GROWTH IN 3 DAYS 07/25/16 14:25 Anaerobic Blood Culture - Preliminary Resulted Blood Peripheral NO GROWTH IN 3 DAYS Imaging Last Impressions Chest X-Ray 07/27/16 0000 Signed Impressions: Service Date/Time: Wednesday, July 27, 2016 04:29 - CONCLUSION: Possible interval development of mild interstitial process possibly pulmonary edema and slight left lung base atelectasis. Kathy Berry MD Abdomen Ultrasound 07/26/16 0000 Signed Impressions: Service Date/Time: Tuesday, July 26, 2016 10:21 - CONCLUSION: 1. Small amount of free fluid adjacent to the lower poles of both kidneys. 2. Obscuration of the head of the pancreas, distal IVC and aorta due to overlying bowel gas. 3. Otherwise negative. Judson Cee MD Lower Extremity CT 07/25/16 0000 Signed Impressions: Service Date/Time: Monday, July 25, 2016 18:54 - CONCLUSION: Extensive nonspecific myositis of the right thigh, also involves gluteus medius and minimus proximally and at least medial gastrocnemius below the knee. Infectious/inflammatory and ischemic etiologies would be in the differential. No gas bubbles are seen to substantiate necrotizing fasciitis. No organized/drainable abscess. Glenroy Sheffield MD Hip and Pelvis X-Ray 07/25/16 0000 Signed Impressions: Service Date/Time: Monday, July 25, 2016 16:52 - CONCLUSION: Intact pelvis and right hip. Nonspecific surrounding soft tissue swelling Glenroy Sheffield MD Head CT 07/25/16 0000 Signed Impressions: Service Date/Time: Monday, July 25, 2016 14:38 - CONCLUSION: Negative noncontrast head CT. Glenroy Sheffield MD Chest CT 07/25/16 0000 Signed Impressions: Service Date/Time: Monday, July 25, 2016 16:37 - CONCLUSION: Focal dense consolidation right middle lobe, nonspecific but most likely infectious or inflammatory. Also a 3 mm right basilar pulmonary nodule Followup noncontrast chest CT in a few months recommended to confirm resolution/stability. Glenroy Sheffield MD Abdomen/Pelvis CT 07/25/16 0000 Signed Impressions: Service Date/Time: Monday, July 25, 2016 16:37 - CONCLUSION: 1. Fatty liver and 21 mm right ovarian cyst. Otherwise, no acute abnormality seen within the abdomen or pelvis. 2. Swollen, heterogeneous right hip musculature, primarily gluteus medius and minimus, rectus femoris and vastus lateralis and the adductor muscles. This is nonspecific but suggests a subacute hematoma of these structures. Nothing organized/measurable. 3. Chronic L5 pars defects with grade 2 L5/S1 spondylolisthesis. Glenroy Sheffield MD Physical Exam CHEST: CTA CARDIAC: RRR ABDOMEN: Soft, nondistended, nontender; no hepatosplenomegaly; bowel sounds are present in all four quadrants. EXTREMITIES: No clubbing, cyanosis. Right thigh lateral wound with wound vac d/ i SKIN: Normal; no rash; no jaundice. 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 (Sangeeta Dixon) Assessment and Plan Plan ASSESSMENT: - Elevated LFTs, possibly combination of shocked liver and rhabdomyolysis. Abdomen Ultrasound (07/26/16)----> 1. Small amount of free fluid adjacent to the lower poles of both kidneys. 2. Obscuration of the head of the pancreas, distal IVC and aorta due to overlying bowel gas. 3. Otherwise negative. Abdomen/Pelvis CT (07/25/16)----> 1. Fatty liver and 21 mm right ovarian cyst. Otherwise, no acute abnormality seen within the abdomen or pelvis. 2. Swollen, heterogeneous right hip musculature, primarily gluteus medius and minimus, rectus femoris and vastus lateralis and the adductor muscles. This is nonspecific but suggests a subacute hematoma of these structures. Nothing organized/measurable. 3. Chronic L5 pars defects with grade 2 L5/S1 spondylolisthesis. Toxicology report---- > Acetaminophen less than 2.0, Salicylates less than 1.7, Ethyl alcohol 28, toxicology screen negative- although the patient reports that she does use pills and smoke marijuana. Hepatitis panel negative. She does have documented episodes of hypotension as well as rhabdomyolysis. JORY negative, ASMA negatie, AMA pending, Ferritin 400, Iron saturation 81.4 (post transfusion), Ceruloplasmin pending, ALpha 1 Antitrypsin pending. LFTs improving, T. Bili 1.7, AST 877, ALT 353, Alk Phosph 50. - AMS, IMPROVED. Ammonia 65, but alert and oriented. Xifaxan, Lactulose. - Rhabdomyolysis. IVF per [facility], CPK > 14,000. - Compartment syndrome, s/p fasciotomy, wound vac placement. - Sepsis, elevated lactic acid, likely t/t right thigh compartment syndrome. - Coagulopathy, ? DIC per [facility] - Anemia, 8.1/22.4 - CARLITO, worsening. Creat 5.45 Plan: - JACY - Await liver workup - Avoid hypotension - Avoid hepatoxins - Supportive care - Further recommendations to follow based on results of above - PT seen and examined by Dr. Monreal and myself and this note is written on his behalf (Sangeeta Dixon) Physician Comments Patient seen and examined Agree with above Continue with current supportive care Monitor labs (Karri Monreal MD) Sangeeta Dixon Jul 28, 2016 15:10 Karri Monreal MD Jul 28, 2016 20:51
[2016-07-28 19:03] LABS: HEMATOCRIT 26.9 % (35.0-46.0); MEAN CELL VOLUME 90.1 FL (80.0-100.0); MEAN CORPUSCULAR HEMOGLOBIN 32.7 PG (27.0-34.0); PLATELET COUNT 60 TH/MM3 (150-450); RED BLOOD COUNT 2.99 MIL/MM3 (4.00-5.30); RED CELL DISTRIBUTION WIDTH 17.8 % (11.6-17.2)
[2016-07-28 19:10] LABS: REVIEW FLAG FINAL
[2016-07-29] VITALS (13 sets, daily range): BP systolic 143–161; BP diastolic 86–107; PULSE 80–116; RESP 16–26; TEMP 97.8–98.7; O2SAT 92–100
[2016-07-29] MEDS: SODIUM BICARBONATE IV SCH ×2 (00:34→06:56)
[2016-07-29] MEDS: [UNRECOGNIZED DRUG - OTHER] IV SCH ×2 (00:34→06:56)
[2016-07-29] MEDS: POTASSIUM CHLORIDE IV SCH ×2 (00:34→06:56)
[2016-07-29] MEDS: PIPERACIL-TAZO 2.25 GM PREMIX 50 ML IV SCH ×4 (00:34→23:19)
[2016-07-29] MEDS: MORPHINE SULFATE 4 MG/ML INJ IV PRN ×5 (00:47→23:19)
[2016-07-29] MEDS: CHLORHEXIDINE GLUCONATE 2 % 1 PACK (2 CLOTHS) TOP SCH (04:00)
[2016-07-29] MEDS: ONDANSETRON HCL 4 MG/2 ML VIAL IV PRN (04:18)
[2016-07-29] MEDS: LACTULOSE SYRUP 20 GM/30 ML CUP PO SCH ×3 (05:13→21:17)
[2016-07-29] MEDS: hydrALAZINE HCL 20 MG/ML VIAL IV PUSH PRN ×2 (05:13→18:23)
[2016-07-29 05:21] LABS: AUTOMATED NEUTROPHIL # 4.3 TH/MM3 (1.8-7.7); BASOPHIL % 0.4 % (0.0-2.0); EOSINOPHIL # 0.1 TH/MM3 (0-0.4); EOSINOPHIL % 1.2 % (0.0-4.0); HEMATOCRIT 27.4 % (35.0-46.0); LYMPH % 11.8 % (9.0-44.0); LYMPHOCYTE # 0.6 TH/MM3 (1.0-4.8); MEAN CELL VOLUME 89.8 FL (80.0-100.0); MEAN CORPUSCULAR HEMOGLOBIN 31.3 PG (27.0-34.0); MEAN CORPUSCULAR HGB CONC 34.8 % (32.0-36.0); MONO % 6.5 % (0.0-8.0); NEUT % 80.1 % (16.0-70.0); PLATELET COUNT 61 TH/MM3 (150-450); RED BLOOD COUNT 3.05 MIL/MM3 (4.00-5.30); RED CELL DISTRIBUTION WIDTH 17.5 % (11.6-17.2); WHITE BLOOD COUNT 5.4 TH/MM3 (4.0-11.0)
[2016-07-29 05:29] LABS: APTT (PATIENT) 28.3 SEC (24.3-30.1)
[2016-07-29 05:36] LABS: HEMO FLAGS AUTO DIFF
[2016-07-29 06:08] LABS: BICARBONATE 41.6 MEQ/L (21.0-32.0); CALCIUM-PROTEIN CORRECTED 7.9 MG/DL (8.5-10.1); MAGNESIUM 1.9 MG/DL (1.5-2.5); POTASSIUM 3.7 MEQ/L (3.5-5.1); TOTAL BILIRUBIN ADULT 1.3 MG/DL (0.2-1.0)
[2016-07-29] MEDS: INSULIN NovoLIN REGULAR SUPPLEMENTAL SCALE SQ SCH ×4 (06:31→21:00)
--- NOTE | 2016-07-29 07:21 | MP ---
cc: SAW JOYA MD DATE OF SURGERY 07/26/2016 PREOPERATIVE DIAGNOSIS Compartment syndrome of the right thigh status post fasciotomy and release of the medial and lateral compartment of the right thigh. OPERATIVE PROCEDURE Pulse irrigation of the medial and lateral fasciotomy, closure of the medial wound, partial closure of the lateral wound and large wound Vac placement. SURGEON Saw Joya MD ANESTHESIA General ESTIMATED BLOOD LOSS 100 cc INDICATIONS FOR PROCEDURE This 30-year-old female was admitted yesterday and she underwent emergency compartment release fasciotomy of the right thigh requiring medial and lateral fasciotomy and today the patient is taken back for a washout and wound Vac placement as she is more stable. PROCEDURE The patient was prepped and draped in the usual fashion. The wound Vac explored. The medial wound appears to be very clean. The small amount of muscle that was debrided yesterday is now gone and the rest of the muscle appears to be very viable, red and angry, but clearly intact and salvageable. The medial fasciotomy of the wound is now irrigated with copious amounts of saline getting this pulse otr company driver between the area of the gracilis sartorius and adductor muscles. Once everything was nice and clean, meticulous hemostasis was obtained with cautery and then it is noted that this incision was not anymore under tension, therefore skin is closed, the deep layer with 0 Monocryl interrupted stitches and skin with 3-0 Prolene interrupted stitches. The lateral fasciotomy is now attended. This one extends just anterior to the fascia pura from the hip down to the lateral condyle of the femur. The vastus muscles were bulging out through this and looking red and angry, swollen, but clearly viable. This was irrigated with copious amounts of saline. Meticulous hemostasis obtained with cautery and then it is noted that skin can be closed in a few areas. So skin is closed very proximal with a few stitches of 0 Monocryl and 3-0 Prolene and then distally just above the condyle samethin, here by closing basically about 2 inches on each side of this fasciotomy. The rest of the fasciotomy and of course skin will be closed. A large wound Vac is placed on it and a dressing applied. The patient taken out of operating room in stable condition. Saw ELDER/JAGDEEPL /5:34 PM /7:08 AM
[2016-07-29] MEDS: RIFAXIMIN 550 MG TAB PO SCH ×2 (08:07→19:56)
[2016-07-29] MEDS: FOLIC ACID 1 MG TAB PO SCH (08:08)
[2016-07-29] MEDS: amLODIPine BESYLATE 5 MG TAB PO SCH (08:08)
[2016-07-29] MEDS: ASPIRIN EC 325 MG TABEC PO SCH (08:08)
[2016-07-29] MEDS: FAMOTIDINE 20 MG/2 ML VIAL IV PUSH SCH (08:08)
[2016-07-29] MEDS: MULTIVITAMIN TAB PO SCH (08:08)
[2016-07-29] MEDS: THIAMINE INJ 100 MG in SODIUM CHLORIDE 0.9% INJ 100 ML IV SCH (08:08)
[2016-07-29 08:30] LABS: PLATELET ESTIMATE SMEAR LOW (NORMAL); PLATELET MORPHOLOGY NORMAL (NORMAL); SCAN/DIFF AUTO DIFF CONFIRMED
--- NOTE | 2016-07-29 08:49 | HHI.GIFU ---
Subjective Remarks Resting in bed. No n/v, no abdominal pain. + BM. (Sangeeta Dixon) Objective Vitals I&O Vital Signs Date Time Temp Pulse Resp B/P Pulse Ox O2 Delivery O2 Flow Rate FiO2 07/29/16 06:00 116 07/29/16 04:00 97.8 102 25 157/107 95 07/29/16 04:00 102 07/29/16 02:00 98 07/29/16 00:00 96 07/29/16 00:00 98.6 96 20 161/103 94 07/28/16 22:00 95 07/28/16 20:47 96 Nasal Cannula 2.00 07/28/16 20:00 88 07/28/16 20:00 98.1 88 16 136/98 96 07/28/16 19:00 96 Nasal Cannula 2.00 07/28/16 18:00 94 07/28/16 16:00 101 07/28/16 16:00 98.6 101 16 144/95 100 07/28/16 14:00 115 07/28/16 12:00 102 07/28/16 12:00 98.3 102 17 141/93 93 07/28/16 10:00 109 07/28/16 09:16 98 Nasal Cannula 2.00 I/O 07/28/16 07/28/16 07/28/16 07/29/16 07/29/16 07/29/16 07:00 15:00 23:00 07:00 15:00 23:00 Intake Total 1257 ml 1720 ml 1463 ml 2012 ml Output Total 1350 ml 1700 ml 1252 ml 1463 ml Balance -93 ml 20 ml 211 ml 549 ml Intake Oral 200 ml 480 ml 300 ml 600 ml IV Total 1057 ml 1240 ml 1163 ml 1412 ml Output Urine Total 500 ml 850 ml 500 ml 900 ml Stool Total 2 ml 3 ml Drainage Total 850 ml 850 ml 750 ml 560 ml # Bowel Movements 0 2 Laboratory Laboratory Tests Test 07/28/16 07/29/16 18:33 04:55 White Blood Count 5.0 5.4 Red Blood Count 2.99 3.05 Hemoglobin 9.8 9.5 Hematocrit 26.9 27.4 Mean Corpuscular Volume 90.1 89.8 Mean Corpuscular Hemoglobin 32.7 31.3 Mean Corpuscular Hemoglobin 36.3 34.8 Concent Red Cell Distribution Width 17.8 17.5 Platelet Count 60 61 Mean Platelet Volume 8.0 7.9 Neutrophils (%) (Auto) 80.1 Lymphocytes (%) (Auto) 11.8 Monocytes (%) (Auto) 6.5 Eosinophils (%) (Auto) 1.2 Basophils (%) (Auto) 0.4 Neutrophils # (Auto) 4.3 Lymphocytes # (Auto) 0.6 Monocytes # (Auto) 0.3 Eosinophils # (Auto) 0.1 Basophils # (Auto) 0.0 CBC Comment AUTO DIFF Differential Comment AUTO DIFF CONFIRMED Platelet Estimate LOW Platelet Morphology Comment NORMAL Prothrombin Time 11.0 Prothromb Time International 1.0 Ratio Activated Partial 28.3 Thromboplast Time Fibrinogen 191 Sodium Level 138 Potassium Level 3.7 Chloride Level 86 Carbon Dioxide Level 41.6 Anion Gap 10 Blood Urea Nitrogen 38 Creatinine 6.34 Estimat Glomerular Filtration 8 Rate Random Glucose 86 Lactic Acid Level 0.9 Calcium Level 6.5 Protein Corrected Calcium 7.9 Phosphorus Level 4.1 Magnesium Level 1.9 Total Bilirubin 1.3 Aspartate Amino Transf 480 (AST/SGOT) Alanine Aminotransferase 269 (ALT/SGPT) Alkaline Phosphatase 60 Total Creatine Kinase 7731 Creatine Kinase MB 17.0 Creatine Kinase MB % 0.2 Troponin I 0.44 Total Protein 4.4 Albumin 2.4 Date/Time Procedure Status Source Growth 07/25/16 16:10 Urine Culture - Final Complete Urine Random Urine Escherichia Coli 07/25/16 14:25 Aerobic Blood Culture - Preliminary Resulted Blood Peripheral NO GROWTH IN 3 DAYS 07/25/16 14:25 Anaerobic Blood Culture - Preliminary Resulted Blood Peripheral NO GROWTH IN 3 DAYS Imaging Last Impressions Chest X-Ray 07/27/16 0000 Signed Impressions: Service Date/Time: Wednesday, July 27, 2016 04:29 - CONCLUSION: Possible interval development of mild interstitial process possibly pulmonary edema and slight left lung base atelectasis. Kathy Berry MD Abdomen Ultrasound 07/26/16 0000 Signed Impressions: Service Date/Time: Tuesday, July 26, 2016 10:21 - CONCLUSION: 1. Small amount of free fluid adjacent to the lower poles of both kidneys. 2. Obscuration of the head of the pancreas, distal IVC and aorta due to overlying bowel gas. 3. Otherwise negative. Judson Cee MD Lower Extremity CT 07/25/16 0000 Signed Impressions: Service Date/Time: Monday, July 25, 2016 18:54 - CONCLUSION: Extensive nonspecific myositis of the right thigh, also involves gluteus medius and minimus proximally and at least medial gastrocnemius below the knee. Infectious/inflammatory and ischemic etiologies would be in the differential. No gas bubbles are seen to substantiate necrotizing fasciitis. No organized/drainable abscess. Glenroy Sheffield MD Hip and Pelvis X-Ray 07/25/16 Signed Impressions: Service Date/Time: Monday, July 25, 2016 16:52 - CONCLUSION: Intact pelvis and right hip. Nonspecific surrounding soft tissue swelling Glenroy Sheffield MD Head CT 07/25/16 0000 Signed Impressions: Service Date/Time: Monday, July 25, 2016 14:38 - CONCLUSION: Negative noncontrast head CT. Glenroy Sheffield MD Chest CT 07/25/16 Signed Impressions: Service Date/Time: Monday, July 25, 2016 16:37 - CONCLUSION: Focal dense consolidation right middle lobe, nonspecific but most likely infectious or inflammatory. Also a 3 mm right basilar pulmonary nodule Followup noncontrast chest CT in a few months recommended to confirm resolution/stability. Glenroy Sheffield MD Abdomen/Pelvis CT 07/25/16 0000 Signed Impressions: Service Date/Time: Monday, July 25, 2016 16:37 - CONCLUSION: 1. Fatty liver and 21 mm right ovarian cyst. Otherwise, no acute abnormality seen within the abdomen or pelvis. 2. Swollen, heterogeneous right hip musculature, primarily gluteus medius and minimus, rectus femoris and vastus lateralis and the adductor muscles. This is nonspecific but suggests a subacute hematoma of these structures. Nothing organized/measurable. 3. Chronic L5 pars defects with grade 2 L5/S1 spondylolisthesis. Glenroy Sheffield MD Physical Exam CHEST: CTA CARDIAC: RRR ABDOMEN: Soft, nondistended, nontender; no hepatosplenomegaly; bowel sounds are present in all four quadrants. EXTREMITIES: No clubbing, cyanosis. Right thigh lateral wound with wound vac d/ i SKIN: Normal; no rash; no jaundice. 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 (Sangeeta Dixon) Assessment and Plan Plan ASSESSMENT: - Elevated LFTs, possibly combination of shocked liver and rhabdomyolysis. Abdomen Ultrasound (07/26/16)----> 1. Small amount of free fluid adjacent to the lower poles of both kidneys. 2. Obscuration of the head of the pancreas, distal IVC and aorta due to overlying bowel gas. 3. Otherwise negative. Abdomen/Pelvis CT (07/25/16)----> 1. Fatty liver and 21 mm right ovarian cyst. Otherwise, no acute abnormality seen within the abdomen or pelvis. 2. Swollen, heterogeneous right hip musculature, primarily gluteus medius and minimus, rectus femoris and vastus lateralis and the adductor muscles. This is nonspecific but suggests a subacute hematoma of these structures. Nothing organized/measurable. 3. Chronic L5 pars defects with grade 2 L5/S1 spondylolisthesis. Toxicology report---- > Acetaminophen less than 2.0, Salicylates less than 1.7, Ethyl alcohol 28, toxicology screen negative- although the patient reports that she does use pills and smoke marijuana. Hepatitis panel negative. She does have documented episodes of hypotension as well as rhabdomyolysis. JORY negative, ASMA negative, AMA pending, Ferritin 400, Iron saturation 81.4 (post transfusion), Ceruloplasmin pending, ALpha 1 Antitrypsin 95. LFTs improving, T. Bili 1.3, AST 480, ALT 269, Alk Phosph 60. - AMS, IMPROVED. Ammonia 65, but alert and oriented. Xifaxan, Lactulose. - Rhabdomyolysis. IVF per [facility], CPK > 7,731 - Compartment syndrome, s/p fasciotomy, wound vac placement. - Sepsis, elevated lactic acid, likely t/t right thigh compartment syndrome. - Coagulopathy, ? DIC per [facility] - Anemia, 9.5.4 - CARLITO, worsening. Creat 6.34 Plan: - JACY - Await liver workup - Alpha 1 Antitrypsin phenotype - Avoid hypotension - Avoid hepatoxins - Supportive care - Further recommendations to follow based on results of above - PT seen and examined by Dr. Monreal and myself and this note is written on his behalf (Sangeeta Dixon) Physician Comments Patient seen and examined Agree with above Continue with current supportive care Monitor labs (Karri Monreal MD) Sangeeta Dixon Jul 29, 2016 08:49 Karri Monreal MD Jul 29, 2016 22:42
--- NOTE | 2016-07-29 08:52 | HHI.CCPN ---
Subjective Remarks/Hospital Course Patient is a 30-year-old female who was brought to the emergency department by the police for medical clearance. Apparently patient was found in bed with her boyfriend this morning who overdosed on drugs. Patient's boyfriend was was found on the bed. In the ER patient reported numbness to the right side of the body and she admits to snorting some cocaine last night. Patient does not recall any of the events overnight or how she got to the hospital. Her drug screen was essentially negative but she admits to cocaine and heroine use. Patient is a very poor historian. EKG shows probable ST elevation V1 and V2 questionable Brugada syndrome. Initially was hypotensive but responded well to IV fluids. Received total 3 L of fluids but remained tachycardic. There were multiple lab abnormalities. Her CBC showed WBC 18.7 with 92% neutrophils. Her chemistry showed potassium of 6.2, BUN of 17 creatinine 2.97, bicarbonate was only 11.2 with an anion gap of 22. Liver enzymes are markedly elevated AST was 6641 ALT was 1419. Patient was hypocalcemic with 6.6 calcium. Lactate came back very elevated at 9.1. Tylenol level was negative. I believe transaminitis is from shocked liver from hypotension-patient denies hepatitis C. CT of the head was negative I evaluated the patient in the ED. She looks critically ill but did not appear to be in distress at this time. Patient denies chest pain. Her troponin came back at 6.24, CPK pending. 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 CK is highly elevated indicating rhabdomyolysis. Dr. Carter does not think this meets criteria for STEMI as the patient is asymptomatic. I did a bedside echo which showed normal ejection fraction no vegetation on the valve on my evaluation. Patient's right thigh is swollen and tense with severe tenderness, distal pulses are palpable but she appears to have compartment syndrome of right thigh. I spoke with Dr. Turner who will evaluate the patient stat for fasciotomy. Continue IV hydration with bicarb infusion 07/26: Afebrile. Complaining of "tingling" in hands. Complains of being dehydrated. Complains of pain in her right thigh. Resting in bed and appears to be in no acute distress. 07/27: Afebrile. Mentation much improved this AM. 350 cc urine output past 12 hours. History status post wound VAC placement to the right thigh. Transfuse 2 units PRBCs and 2 pack platelets overnight. A.m. labs all pending. Hemodynamically stable. 07/28: Afebrile. Patient complaining of menstrual cycle bleeding. Increasing urine output overnight. Wound VAC with 1575 output. Hemoglobin stable. Currently getting potassium replacement. Subjective 07/29: Afebrile. Tolerating oral intake. 2 bowel movements overnight. Mother concerned confusion persists. Likely metabolic. EEG/MRI brain ordered for completeness. Objective Vital Signs Date Time Temp Pulse Resp B/P Pulse Ox O2 Delivery O2 Flow Rate FiO2 07/29/16 06:00 116 07/29/16 04:00 97.8 25 157/107 95 07/28/16 20:47 Nasal Cannula 2.00 07/26/16 07:57 21 Intake and Output 07/28/16 07/28/16 07/29/16 08:00 16:00 00:00 Intake Total 1257 ml 1720 ml 1463 ml Output Total 1350 ml 1700 ml 1252 ml Balance -93 ml 20 ml 211 ml Result Diagram: 07/29/16 0455 07/29/16 0455 Other Results Microbiology Date/Time Procedure Status Source Growth 07/25/16 16:10 Urine Culture - Final Complete Urine Random Urine Escherichia Coli 07/25/16 14:25 Aerobic Blood Culture - Preliminary Resulted Blood Peripheral NO GROWTH IN 3 DAYS 07/25/16 14:25 Anaerobic Blood Culture - Preliminary Resulted Blood Peripheral NO GROWTH IN 3 DAYS Imaging Last Impressions Chest X-Ray 07/27/16 0000 Signed Impressions: Service Date/Time: Wednesday, July 27, 2016 04:29 - CONCLUSION: Possible interval development of mild interstitial process possibly pulmonary edema and slight left lung base atelectasis. Kathy Berry MD Abdomen Ultrasound 07/26/16 0000 Signed Impressions: Service Date/Time: Tuesday, July 26, 2016 10:21 - CONCLUSION: 1. Small amount of free fluid adjacent to the lower poles of both kidneys. 2. Obscuration of the head of the pancreas, distal IVC and aorta due to overlying bowel gas. 3. Otherwise negative. Judson Cee MD Lower Extremity CT 07/25/16 0000 Signed Impressions: Service Date/Time: Monday, July 25, 2016 18:54 - CONCLUSION: Extensive nonspecific myositis of the right thigh, also involves gluteus medius and minimus proximally and at least medial gastrocnemius below the knee. Infectious/inflammatory and ischemic etiologies would be in the differential. No gas bubbles are seen to substantiate necrotizing fasciitis. No organized/drainable abscess. Glenroy Sheffield MD Hip and Pelvis X-Ray 07/25/16 0000 Signed Impressions: Service Date/Time: Monday, July 25, 2016 16:52 - CONCLUSION: Intact pelvis and right hip. Nonspecific surrounding soft tissue swelling Glenroy Sheffield MD Head CT 07/25/16 0000 Signed Impressions: Service Date/Time: Monday, July 25, 2016 14:38 - CONCLUSION: Negative noncontrast head CT. Glenroy Sheffield MD Chest CT 07/25/16 0000 Signed Impressions: Service Date/Time: Monday, July 25, 2016 16:37 - CONCLUSION: Focal dense consolidation right middle lobe, nonspecific but most likely infectious or inflammatory. Also a 3 mm right basilar pulmonary nodule Followup noncontrast chest CT in a few months recommended to confirm resolution/stability. Glenroy Sheffield MD Abdomen/Pelvis CT 07/25/16 0000 Signed Impressions: Service Date/Time: Monday, July 25, 2016 16:37 - CONCLUSION: 1. Fatty liver and 21 mm right ovarian cyst. Otherwise, no acute abnormality seen within the abdomen or pelvis. 2. Swollen, heterogeneous right hip musculature, primarily gluteus medius and minimus, rectus femoris and vastus lateralis and the adductor muscles. This is nonspecific but suggests a subacute hematoma of these structures. Nothing organized/measurable. 3. Chronic L5 pars defects with grade 2 L5/S1 spondylolisthesis. Glenroy Sheffield MD Objective Remarks GENERAL: 30-year-old female. Critically ill currently resting in bed in no acute distress SKIN: Warm and dry. No rash. HEAD: Atraumatic. Normocephalic. EYES: Pupils equal and round about 3 mm bilaterally and reactive. No scleral icterus. No injection or drainage. ENT: No nasal bleeding or discharge. Mucous membranes dry and pink NECK: Trachea midline. No JVD. CARDIOVASCULAR: Tachycardia, RR S1, S2. No S4. Faint systolic 2/6 murmur RESPIRATORY: Few crackles appreciated in bases bilaterally. Breath sounds equal bilaterally. GASTROINTESTINAL: Abdomen soft, non-tender, nondistended. Hepatomegaly. Hypoactive bowel sounds. Abrasions. MUSCULOSKELETAL: Right thigh currently with wound VAC lateral aspect. CHAZ 510 cc serosanguineous drainage. Right hip tender with restricted mobility. Positive peripheral edema right greater than left lower extremity. NEUROLOGICAL: Awake and alert. Motor grossly within normal limits. Normal speech. A/P Assessment and Plan NEURO: Altered mental status Polysubstance abuse with drug overdose including cocaine/heroin Right upper extremity numbness History of THC use EtOH -Watch for alcohol and drug withdrawal, Use PRN Ativan for anxiety and oxycodone /morphine as needed for pain -CT of the head 07/25 revealed no acute intracranial findings -Started on aspirin 325 mg daily for elevated troponin. -Thiamine 100 mg IV daily along with multivitamin and folate daily -Planning EEG/MRI brain confusion -Psychiatry to clear for Osborn act today. RESP: Mild Respiratory insufficiency secondary to pneumonia/metabolic acidosis Small consolidation right middle lobe\\ Right basilar pulmonary nodule 3 mm - follow-up CT chest 3 months recommended Ongoing tobaccoism -Nasal cannula oxygen to maintain saturations greater than equal to 92% -Incentive spirometry while awake -CT chest 07/25 revealed right middle lobe infiltrate along with 3 mm right basilar pulmonary nodule. -Chest x-ray 07/26 reveals no significant cardio pulmonary findings -DuoNeb every 2 hours when necessary -See ID section for broad-spectrum antibiotics CV: Elevated troponin Severe lactic acidosis - resolved ST elevation in V1 and V2 - bicarbonate infusion at 150 ML per hour for rhabdo will be discontinued. Place on normal saline at 1 25 cc an hour -Discussed extensively with Dr. Carter, does not meet criteria for STEMI -Continue aspirin 325 mg daily, will not use beta blockers due to cocaine abuse -2d echo revealed EF 60-65%. NRWMA. Lactic acid has cleared Norvasc 2.5 mg daily for hypertension GI: Transaminitis Rhabdomyolysis Hyperammonia -Transaminitis most likely secondary to shock/rhabdo -CT of the abdomen and pelvis shows fatty liver/21 mm right ovarian cyst -Negative hepatitis panel -Tolerating clear liquid diet . As per surgery -IV Pepcid - Xifaxan 550 twice a day/lactulose 30 3 times a day for elevated ammonia. Recheck in AM 12/2 - 2 bm overnight /Renal: Acute kidney failure Acute rhabdomyolysis -Continue sterile water with 3 ampules sodium bicarbonate at 150 ML per hour -07/26 renal ultrasound revealed fluid of at poles of bilateral kidneys otherwise negative -Strict intake output. -Urine electrolytes intrinsic renal process/urine eosinophils negative. - Nephrology consult. 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 Small consolidation in the right middle lobe unlikely to be source of severe sepsis -Rule out infective endocarditis echocardiogram Pertinent cultures 07/25 - blood cultures 2 -no growth 07/25 - urine culture -Escherichia coli HEME: Macrocytic anemia Thrombocytopenia -Monitor CBC, CMP, coags in a.m. - Transfused total 4 units PRBCs, 2 pack platelets, 2 FFP 2 cryo-since admission ENDO: -Sliding-scale insulin if clinically indicated FEN: Received 8 mEq KCl 1 tonight Replace electrolytes as clinically indicated. Currently on clear liquid diet Msk: Right medial/lateral thigh compartment syndrome L5/S1 spondylolisthesis Status post day [address] Turner - wound VAC placement postop day 2 - 1650 from wound VAC overnight. 510 SS from CHAZ PROPH: -Left lower extremity SCDs. Heparin 5000 units subcutaneous twice a day held in light of decreasing platelet/bleeding LINES: -Utilize peripheral IVs, central line if needed Critical Care: The total critical care time was 45 minutes. Time to perform other separately billable procedures was not included in the critical care time. Wiliam Barron MD Jul 29, 2016 08:52
[2016-07-29] MEDS: SODIUM CHLOR 0.9% 1000 ML INJ 1,000 ML IV SCH ×2 (09:00→17:00)
[2016-07-29] MEDS: FAMOTIDINE 20 MG TAB PO SCH ×2 (09:00→19:57)
[2016-07-29] MEDS: SODIUM CHLORIDE 0.9% FLUSH 5 ML FLUSH IV FLUSH SCH ×2 (09:00→19:57)
[2016-07-29] MEDS ORDERED: PILL SPLITTER OTHER PRN (09:00)
[2016-07-29] MEDS ORDERED: MAGNESIUM SULFATE 1 GM PREMIX 100 ML IV ONE (09:00)
--- NOTE | 2016-07-29 09:09 | HHI.NPPN ---
Subjective History of Present Illness 30 year old female with drug OD, Rt thigh compartment syndrome s/p Fasciotomy, Rhabdomyolysis, ARF Review of Systems General Constitutional: Fatigue Musculoskeletal MS: Pain/Stiffness Objective Data Data 07/28/16 07/29/16 18:59 06:59 Intake Total 1720 ml 3475 ml Output Total 1700 ml 2715 ml Balance 20 ml 760 ml Intake Oral 480 ml 900 ml IV Total 1240 ml 2575 ml Output Urine Total 850 ml 1400 ml Stool Total 5 ml Drainage Total 850 ml 1310 ml # Bowel Movements 2 Vital Signs Date Time Temp Pulse Resp B/P Pulse Ox O2 Delivery O2 Flow Rate FiO2 07/29/16 06:00 116 07/29/16 04:00 97.8 102 25 157/107 95 07/29/16 04:00 102 07/29/16 02:00 98 07/29/16 00:00 96 07/29/16 00:00 98.6 96 20 161/103 94 07/28/16 22:00 95 07/28/16 20:47 96 Nasal Cannula 2.00 07/28/16 20:00 88 07/28/16 20:00 98.1 88 16 136/98 96 07/28/16 19:00 96 Nasal Cannula 2.00 07/28/16 18:00 94 07/28/16 16:00 101 07/28/16 16:00 98.6 101 16 144/95 100 07/28/16 14:00 115 07/28/16 12:00 102 07/28/16 12:00 98.3 102 17 141/93 93 07/28/16 10:00 109 07/28/16 09:16 98 Nasal Cannula 2.00 -: 07/29/16 0455 07/29/16 0455 Physical Exam General Appearance: Well Developed, Well Nourished Neck Neck Exam: Neck Supple Pulmonary Resp Exam: Clear Bilaterally, Breath Sounds Equal Cardiology CV Exam: Regular, Normal Sinus Rhythm Gastrointestinal/Abdomen GI Exam: Soft, Non-Tender, Bowel Sounds Present Extremeties Extremities Exam: Trace Edema Extremeties Remarks Rt thigh vacuum dressing Assessment/Plan Problem List: (1) Acute kidney failure Plan: This is likely due to rhabdomyolysis and acute tubular necrosis Non oliguric UOP 2.25 L Cr higher 6.34 monitor for improvement consider dialysis if uremic on bicarb drip IVF sterile water with 100 meq NaHO3/KCL 20 meq on Vancomycin to q 48 hrs as Random Vancomycin level 35.6 (2) Compartment syndrome of right lower extremity Plan: Status post surgery (3) SIRS (systemic inflammatory response syndrome) Plan: Continue with broad-spectrum antibiotics (4) UTI (urinary tract infection) Plan: On Zosyn (5) Severe sepsis Plan: Status post fasciotomy right leg (6) Small right middle lobe consolidation Plan: On antibiotics Problem Qualifiers (1) Acute kidney failure: Qualified Code: N17.9 - Acute renal failure, unspecified acute renal failure type Vinny Fletcher MD Jul 29, 2016 09:09
[2016-07-29] MEDS: VANCOMYCIN INJ 1,000 MG in SODIUM CHLOR 0.9% 250 ML INJ 250 ML IV SCH (09:19)
[2016-07-29] MEDS ORDERED: POTASSIUM CHLORIDE 8 MEQ CONTROLLED RELEASE TAB PO ONE (10:00)
--- NOTE | 2016-07-29 12:41 | PD.CARD.PN ---
Subjective Subjective Remarks alert in nad Objective Vital Signs / I&O Vital Signs Date Time Temp Pulse Resp B/P Pulse Ox O2 Delivery O2 Flow Rate FiO2 07/29/16 12:18 97 Nasal Cannula 2.00 07/29/16 12:00 98.5 92 16 143/96 99 07/29/16 12:00 92 07/29/16 10:00 101 07/29/16 08:00 103 07/29/16 08:00 98.2 109 18 146/95 93 07/29/16 07:00 92 Nasal Cannula 4.00 07/29/16 06:00 116 07/29/16 04:00 97.8 102 25 157/107 95 07/29/16 04:00 102 07/29/16 02:00 98 07/29/16 00:00 96 07/29/16 00:00 98.6 96 20 161/103 94 07/28/16 22:00 95 07/28/16 20:47 96 Nasal Cannula 2.00 07/28/16 20:00 88 07/28/16 20:00 98.1 88 16 136/98 96 07/28/16 19:00 96 Nasal Cannula 2.00 07/28/16 18:00 94 07/28/16 16:00 101 07/28/16 16:00 98.6 101 16 144/95 100 07/28/16 14:00 115 I/O 07/28/16 07/28/16 07/28/16 07/29/16 07/29/16 07/29/16 07:00 15:00 23:00 07:00 15:00 23:00 Intake Total 1257 ml 1720 ml 1463 ml 2012 ml Output Total 1350 ml 1700 ml 1252 ml 1463 ml Balance -93 ml 20 ml 211 ml 549 ml Intake Oral 200 ml 480 ml 300 ml 600 ml IV Total 1057 ml 1240 ml 1163 ml 1412 ml Output Urine Total 500 ml 850 ml 500 ml 900 ml Stool Total 2 ml 3 ml Drainage Total 850 ml 850 ml 750 ml 560 ml # Bowel Movements 0 2 Physical Exam GENERAL: SKIN: Warm and dry. HEAD: Normocephalic. EYES: No scleral icterus. No injection or drainage. NECK: Supple, trachea midline. No JVD or lymphadenopathy. CARDIOVASCULAR: Regular rate and rhythm without murmurs, gallops, or rubs. RESPIRATORY: Breath sounds equal bilaterally. No accessory muscle use. GASTROINTESTINAL: Abdomen soft, non-tender, nondistended. MUSCULOSKELETAL: No cyanosis, or edema. BACK: Nontender without obvious deformity. No CVA tenderness. Laboratory Laboratory Tests Test 07/28/16 07/29/16 18:33 04:55 White Blood Count 5.0 TH/MM3 5.4 TH/MM3 Red Blood Count 2.99 MIL/MM3 3.05 MIL/MM3 Hemoglobin 9.8 GM/DL 9.5 GM/DL Hematocrit 26.9 % 27.4 % Mean Corpuscular Volume 90.1 FL 89.8 FL Mean Corpuscular Hemoglobin 32.7 PG 31.3 PG Mean Corpuscular Hemoglobin 36.3 % 34.8 % Concent Red Cell Distribution Width 17.8 % 17.5 % Platelet Count 60 TH/MM3 61 TH/MM3 Mean Platelet Volume 8.0 FL 7.9 FL Neutrophils (%) (Auto) 80.1 % Lymphocytes (%) (Auto) 11.8 % Monocytes (%) (Auto) 6.5 % Eosinophils (%) (Auto) 1.2 % Basophils (%) (Auto) 0.4 % Neutrophils # (Auto) 4.3 TH/MM3 Lymphocytes # (Auto) 0.6 TH/MM3 Monocytes # (Auto) 0.3 TH/MM3 Eosinophils # (Auto) 0.1 TH/MM3 Basophils # (Auto) 0.0 TH/MM3 CBC Comment AUTO DIFF Differential Comment AUTO DIFF CONFIRMED Platelet Estimate LOW Platelet Morphology Comment NORMAL Prothrombin Time 11.0 SEC Prothromb Time International 1.0 RATIO Ratio Activated Partial 28.3 SEC Thromboplast Time Fibrinogen 191 mg/dL Sodium Level 138 MEQ/L Potassium Level 3.7 MEQ/L Chloride Level 86 MEQ/L Carbon Dioxide Level 41.6 MEQ/L Anion Gap 10 MEQ/L Blood Urea Nitrogen 38 MG/DL Creatinine 6.34 MG/DL Estimat Glomerular Filtration 8 ML/MIN Rate Random Glucose 86 MG/DL Lactic Acid Level 0.9 mmol/L Calcium Level 6.5 MG/DL Protein Corrected Calcium 7.9 MG/DL Phosphorus Level 4.1 MG/DL Magnesium Level 1.9 MG/DL Total Bilirubin 1.3 MG/DL Aspartate Amino Transf 480 U/L (AST/SGOT) Alanine Aminotransferase 269 U/L (ALT/SGPT) Alkaline Phosphatase 60 U/L Total Creatine Kinase 7731 U/L Creatine Kinase MB 17.0 NG/ML Creatine Kinase MB % 0.2 % Troponin I 0.44 NG/ML Total Protein 4.4 GM/DL Albumin 2.4 GM/DL Assessment and Plan Problem List: (1) Drug overdose (2) Hypocalcemia (3) SIRS (systemic inflammatory response syndrome) (4) Renal failure (5) Hyperkalemia (6) Lactic acidosis (7) Altered mental status (8) Severe sepsis (9) Elevated troponin (10) Severe metabolic acidosis (11) Acute kidney failure (12) Leukocytosis (13) Hip hematoma, right (14) Small right middle lobe consolidation (15) Rhabdomyolysis (16) Compartment syndrome of right lower extremity Assessment and Plan 1.) Elevated troponin - suspect d/t global hypoperfusion d/t hypotension form sepsis, ef=65%, patient is assymptomatic, trop trending down 2.) POD 2 - stable Problem Qualifiers (1) Drug overdose: Qualified Code: T50.904A - Drug overdose, undetermined intent, initial encounter (2) Acute kidney failure: Qualified Code: N17.9 - Acute renal failure, unspecified acute renal failure type (3) Leukocytosis: Qualified Code: D72.829 - Leukocytosis, unspecified type Luis Eduardo Carter MD Jul 29, 2016 12:41
--- NOTE | 2016-07-29 13:06 | PD.CONS ---
Provisional Diagnosis Admission Date Jul 25, 2016 at 15:39 [place]. Polysubstance dependence History of Present Illness Service Psychiatry Consult Requested By Primary Care Physician No Primary Care Physician HPI The patient is a 30 years old woman, employed, domicile with her boyfriend, psychiatric history of polysubstance dependence, cocaine, alcohol, marijuana and Xanax, no previous psychiatric hospitalizations, no previous suicide attempts, no significant medical history who was brought to the hospital on the Osborn act after being found with her boyfriend in the floor unconscious with many empty syringes around. Her boyfriend was pronounced after a drug overdose. The patient is being treated for left leg compartment syndrome, CARLITO, was consulted to psychiatry to assess potential suicidal cause of her overdose. Chart was reviewed, collateral information from her mother was obtained, case was discussed with primary medical team, patient was evaluated at bedside. On evaluation patient was found calm and cooperative. Patient states that she was using drugs intention to feel high, but no suicidal intentions. She says that she's been using drugs for a long time now, alcohol every day, cocaine and marijuana a couple times a week, street Xanax almost everyday. She denies previous withdrawal symptoms, she denies history of her rehabilitation programs or detox. Previous to this overdose patient denies depressive symptoms such as anhedonia, hopelessness, helplessness, problems sleeping, with concentration, suicidal or homicidal ideation. Patient denies current and past symptoms of tony, perceptual disturbances, visual and auditory hallucinations. Patient states that she love and enjoy life, and even though she uses drugs often, that does not mean that she doesn't psychiatric patient and she wants to . Patient seems to be blunted and indifferent to the news that her boyfriend of overdose, is probable that she is still in denial. Review of Systems Constitutional: DENIES: Diaphoretic episodes, Fatigue, Fever, Weight gain, Weight loss, Chills, Dizziness, Change in appetite, Night Sweats Endocrine: DENIES: Abnorml menstrual pattern, Heat/cold intolerance, Polydipsia , Polyuria, Polyphagia Ears, nose, mouth, throat: DENIES: Tinnitus, Hearing loss, Vertigo, Nasal discharge, Oral lesions, Throat pain, Hoarseness, Ear Pain, Running Nose, Epistaxis, Sinus Pain, Toothache, Odynophagia Respiratory: DENIES: Apneas, Cough, Snoring, Wheezing, Hemoptysis, Sputum production, Shortness of breath Cardiovascular: DENIES: Chest pain, Palpitations, Syncope, Dyspnea on Exertion , PND, Lower Extremity Edema, Orthopnea, Claudication Gastrointestinal: DENIES: Abdominal pain, Black stools, Bloody stools, Constipation, Diarrhea, Nausea, Vomiting, Difficulty Swallowing, Anorexia Genitourinary: DENIES: Abnormal vaginal bleeding, Dysmenorrhea, Dyspareunia, Sexual dysfunction, Urinary frequency, Urinary incontinence, Urgency, Hematuria , Dysuria, Nocturia, Vaginal discharge Musculoskeletal: COMPLAINS OF: Joint Swelling, Back pain Immunologic/allergic: DENIES: Eczema, Urticaria Neurologic: DENIES: Abnormal gait, Headache, Localized weakness, Paresthesias, Seizures, Speech Problems, Tremor, Poor Balance Psychiatric: DENIES: Anxiety, Confusion, Mood changes, Depression, Hallucinations, Agitation, Suicidal Ideation, Homicidal Ideation, Delusions Past Family Social History Coded Allergies: No Known Allergies (Unverified , 12/10/14) No Active Prescriptions or Reported Meds Current Medications Medications (Trade) Dose Ordered Sig/Sara Route Start Time Stop Time Status Last Admin (NS Flush) 2 ml UNSCH PRN IV FLUSH 07/25/16 16:15 (NS Flush) 2 ml BID IV FLUSH 07/25/16 21:00 07/29/16 09:00 Miscellaneous Information 1 Q361D XX 07/25/16 16:15 (Chlorhexidine 2% Cloth) 3 pack Taper DAILY@04 TOP 07/26/16 04:00 07/22/17 03:59 07/29/16 04:00 (Chlorhexidine 2% Cloth) 3 pack UNSCH PRN TOP 07/25/16 16:15 Aspirin 325 mg 325 mg DAILY PO 07/26/16 09:00 07/29/16 08:08 (Thiamine Inj/NS Inj) 101 ml @ 101 mls/hr DAILY IV 07/25/16 20:00 07/29/16 08:08 (Ativan Inj) 1 mg Q2H PRN IV PUSH 07/25/16 17:45 (Morphine Inj) 4 mg Q2H PRN IV 07/25/16 23:45 07/29/16 10:47 (Theragran) 1 tab DAILY PO 07/26/16 09:00 07/29/16 08:08 (Folate) 1 mg DAILY PO 07/26/16 09:00 07/29/16 08:08 (Zofran Inj) 4 mg Q6H PRN IV 07/26/16 08:00 07/29/16 04:18 (D50w (Vial) Inj) 25 ml UNSCH PRN IV PUSH 07/26/16 08:15 (Glucagon Inj) 1 mg UNSCH PRN OTHER 07/26/16 08:15 (Xifaxan) 550 mg BID PO 07/26/16 10:00 07/29/16 08:07 Lactulose 30 ml 30 ml Q8HR PO 07/26/16 14:00 07/29/16 05:13 Vancomycin HCl 1000 mg/Sodium Chloride 250 ml @ 250 mls/hr Q24H IV 07/28/16 09:00 07/30/16 09:00 07/29/16 09:19 (Zosyn 2.25 Gm Premix) 50 ml @ 100 mls/hr Q8H IV 07/27/16 16:00 07/29/16 08:08 (Norvasc) 2.5 mg DAILY PO 07/28/16 11:00 07/29/16 08:08 (Apresoline Inj) 10 mg Q1HR PRN IV PUSH 07/28/16 09:30 07/29/16 05:13 Nitroglycerin 1 inch 1 inch Q6H PRN TOPICAL 07/28/16 09:30 Vancomycin HCl 1000 mg/Sodium Chloride 250 ml @ 250 mls/hr Q48H IV 07/30/16 09:00 (NS 1000 ml Inj) 1,000 ml @ 125 mls/hr Q8H IV 07/29/16 09:00 07/29/16 09:00 (Pepcid) 10 mg BID PO 07/29/16 09:00 (Pill Splitter) 1 ea UNSCH PRN OTHER 07/29/16 09:00 (Roxicodone) 5 mg Q6H PRN PO 07/29/16 09:00 07/29/16 11:55 Family History She denies Social History She was born in [facility], she lives with her boyfriend, 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 Physical Exam Vital Signs Vital Signs Date Time Temp Pulse Resp B/P Pulse Ox O2 Delivery O2 Flow Rate FiO2 07/29/16 12:18 97 Nasal Cannula 2.00 07/29/16 12:00 98.5 92 16 143/96 07/26/16 07:57 21 I/O 07/28/16 07/28/16 07/29/16 08:00 16:00 00:00 Intake Total 1257 ml 1720 ml 1463 ml Output Total 1350 ml 1700 ml 1252 ml Balance -93 ml 20 ml 211 ml Mental Status Examination Appearance woman, who appears her stated age, good hygiene, she is calm and cooperative, a little bit distant Speech: Unremarkable Orientation: x3 Memory: Unremarkable Thought Process: Logical Thought Content: Unremarkable Hallucination Type: None Attention and Concentration: Good Suicidal Ideation: No Previous Suicide Attempts: No Homicidal Ideation: No Previous Homicide Attempts: No Judgement: WNL Affect: Good Mood: Appropriate Motor Activity: Normal gait Assessment & Plan Problem List: (1) Polysubstance dependence Assessment & Plan: At the moment of the psychiatric evaluation the patient does not present any acute, concerning or significant psychiatric symptom such as depression, anxiety, perceptual disturbances, psychosis, tony that requires an immediate psychiatric intervention or meet criteria for psychiatric hospitalization. Recent overdose with different drugs was accidental and now with suicidal intention. Due to her permanent use of multiple drugs patient carries a chronic high risk for suicidality, crying and impulsive behavior, she will definitely benefit of a detox/rehabilitation program. Please watch for benzo/alcohol was withdrawal symptom, CIWA protocol. Patient is in a high risk of adjustment disorder with depression due to recent of boyfriend, but no medications indicated unless she becomes very anxious and agitated low dose of Ativan by mouth could be given. Extensive supportive psychotherapy, motivation and psycho education provided. Osborn act will be lifted. If any new psychiatric concerns please reconsult. ICD Code: F19.20 Assessment & Plan Estimated LOS: Tay Hsu MD Jul 29, 2016 13:06
--- NOTE | 2016-07-29 15:15 | PD.CAR.PN ---
CVT Progress Note Subjective/Hospital Course: Patient with clinical findings of medial and lateral thigh compartment syndrome For OR now Gayatri Baltazar 07/26/16 Patient underwent yesterday and medial and lateral fasciotomy of the thigh debridement Today she underwent washout the both, closure of the medial fasciotomy skin and wound VAC placement on lateral fasciotomy The lateral fasciotomy will need wound VAC for but 2 weeks and then this can be covered with the partial-thickness skin graft by plastic surgery 07/27/16 Status post the thigh compartment syndrome with medial and lateral fasciotomy of the right leg Yesterday patient went for washout closure and drainage of the medial fasciotomy site while the lateral fasciotomy from hip to the knee remains open Wound VAC in place Hemoglobin now stable and there is no other source of bleeding Patient was in active DIC and fibrinolysis for the first 48 hours and this is now abating Agree with blood and blood products administration Platelets remain stable and unless these drop on the 30,000 would probably not transfuse Patient can be out of bed and should be bearing weight on this leg as much as possible 07/28/16 CHAZ drainage from the medial closure of the thighs decreased but I will leave it in till the swelling decreases and the third space abates for otherwise patient will develop a seroma in this area Lateral incision now covered with a wound VAC is draining minimally Hemoglobin remains stable Plan Starting tomorrow will have wound care assist with changing wound VAC at the bedside and I will consult plastic surgery for grafting of the wound in the near future 07/29/16 Medial compartment is closed and drainage is minimal so we will DC CHAZ Lateral thigh compartment is open clean and we will start wound VAC changes today Eventually patient will go to the OR for another washout and perhaps little more closure of this area but for the most part she will need a skin grafting of this area Objective: Vital Signs Date Time Temp Pulse Resp B/P Pulse Ox O2 Delivery O2 Flow Rate FiO2 07/29/16 14:00 80 07/29/16 12:18 97 Nasal Cannula 2.00 07/29/16 12:00 98.5 92 16 143/96 99 07/29/16 12:00 92 07/29/16 10:00 101 07/29/16 08:00 103 07/29/16 08:00 98.2 109 18 146/95 93 07/29/16 07:00 92 Nasal Cannula 4.00 07/29/16 06:00 116 07/29/16 04:00 97.8 102 25 157/107 95 07/29/16 04:00 102 07/29/16 02:00 98 07/29/16 00:00 96 07/29/16 00:00 98.6 96 20 161/103 94 07/28/16 22:00 95 07/28/16 20:47 96 Nasal Cannula 2.00 07/28/16 20:00 88 07/28/16 20:00 98.1 88 16 136/98 96 07/28/16 19:00 96 Nasal Cannula 2.00 07/28/16 18:00 94 07/28/16 16:00 101 07/28/16 16:00 98.6 101 16 144/95 100 Labs: Laboratory Tests Test 07/29/16 04:55 White Blood Count 5.4 TH/MM3 (4.0-11.0) Red Blood Count 3.05 MIL/MM3 (4.00-5.30) Hemoglobin 9.5 GM/DL (11.6-15.3) Hematocrit 27.4 % (35.0-46.0) Mean Corpuscular Volume 89.8 FL (80.0-100.0) Mean Corpuscular Hemoglobin 31.3 PG (27.0-34.0) Mean Corpuscular Hemoglobin 34.8 % Concent (32.0-36.0) Red Cell Distribution Width 17.5 % (11.6-17.2) Platelet Count 61 TH/MM3 (150-450) Mean Platelet Volume 7.9 FL (7.0-11.0) Neutrophils (%) (Auto) 80.1 % (16.0-70.0) Lymphocytes (%) (Auto) 11.8 % (9.0-44.0) Monocytes (%) (Auto) 6.5 % (0.0-8.0) Eosinophils (%) (Auto) 1.2 % (0.0-4.0) Basophils (%) (Auto) 0.4 % (0.0-2.0) Neutrophils # (Auto) 4.3 TH/MM3 (1.8-7.7) Lymphocytes # (Auto) 0.6 TH/MM3 (1.0-4.8) Monocytes # (Auto) 0.3 TH/MM3 (0-0.9) Eosinophils # (Auto) 0.1 TH/MM3 (0-0.4) Basophils # (Auto) 0.0 TH/MM3 (0-0.2) CBC Comment AUTO DIFF Differential Comment AUTO DIFF CONFIRMED Platelet Estimate LOW (NORMAL) Platelet Morphology Comment NORMAL (NORMAL) Prothrombin Time 11.0 SEC (9.8-11.6) Prothromb Time International 1.0 RATIO Ratio Activated Partial 28.3 SEC Thromboplast Time (24.3-30.1) Fibrinogen 191 mg/dL (227-377) Sodium Level 138 MEQ/L (136-145) Potassium Level 3.7 MEQ/L (3.5-5.1) Chloride Level 86 MEQ/L (98-107) Carbon Dioxide Level 41.6 MEQ/L (21.0-32.0) Anion Gap 10 MEQ/L (5-15) Blood Urea Nitrogen 38 MG/DL (7-18) Creatinine 6.34 MG/DL (0.50-1.00) Estimat Glomerular Filtration 8 ML/MIN (>89) Rate Random Glucose 86 MG/DL (74-106) Lactic Acid Level 0.9 mmol/L (0.4-2.0) Calcium Level 6.5 MG/DL (8.5-10.1) Protein Corrected Calcium 7.9 MG/DL (8.5-10.1) Phosphorus Level 4.1 MG/DL (2.5-4.9) Magnesium Level 1.9 MG/DL (1.5-2.5) Total Bilirubin 1.3 MG/DL (0.2-1.0) Aspartate Amino Transf 480 U/L (15-37) (AST/SGOT) Alanine Aminotransferase 269 U/L (10-53) (ALT/SGPT) Alkaline Phosphatase 60 U/L (45-117) Total Creatine Kinase 7731 U/L (26-192) Creatine Kinase MB 17.0 NG/ML (0.5-3.6) Creatine Kinase MB % 0.2 % (0.0-4.0) Troponin I 0.44 NG/ML (0.02-0.05) Total Protein 4.4 GM/DL (6.4-8.2) Albumin 2.4 GM/DL (3.4-5.0) Result Diagram: 07/29/16 0455 07/29/16 0455 (1) Drug overdose (2) Hypocalcemia (3) SIRS (systemic inflammatory response syndrome) (4) Renal failure (5) Hyperkalemia (6) Lactic acidosis (7) Altered mental status (8) Severe sepsis (9) Elevated troponin (10) Severe metabolic acidosis (11) Acute kidney failure (12) Leukocytosis (13) Hip hematoma, right (14) Small right middle lobe consolidation (15) Rhabdomyolysis (16) Compartment syndrome of right lower extremity Problem Qualifiers (1) Drug overdose: Qualified Code: T50.904A - Drug overdose, undetermined intent, initial encounter (2) Acute kidney failure: Qualified Code: N17.9 - Acute renal failure, unspecified acute renal failure type (3) Leukocytosis: Qualified Code: D72.829 - Leukocytosis, unspecified type Saw Turner MD Jul 29, 2016 15:15
--- NOTE | 2016-07-29 15:23 | RADRPT ---
EXAM DATE/TIME: 07/29/2016 13:34 [place] COMPARISON: CT BRAIN W/O CONTRAST, July 25, 2016, 14:38. INDICATIONS : Altered mental status. MEDICAL HISTORY : None. SURGICAL HISTORY : Rt thigh wound ENCOUNTER: Subsequent ACUITY: 4-6 days PAIN SCORE: 0/10 LOCATION: cranial TECHNIQUE: Multiplanar, multisequence MRI of the brain was performed without contrast. FINDINGS: Axial T2 and diffusion restriction images demonstrate focal areas of symmetric, abnormal signal withi n the globus pallidus bilaterally and throughout the medial aspect of the temporal lobes bilaterally. The primary differential consideration for this would include carbon monoxide poisoning. It is possi ble, this is from simple anoxic/hypoxic brain injury as well. There are other metabolic etiologies which can produce specific findings within the globus pallidus. These include mitochondrial abnormalities such as Josefina's disease however, this is exceedingly rare i n the adult population. Branden's disease can have this appearance as well but does not typically invo lve the mesial temporal lobes. The ventricles are normal in size and configuration. No other abnormal signal is seen within the brai n parenchyma. The appearance of the posterior fossa is unremarkable. No extra-axial fluid collections are seen. The orbits and sinuses are intact. CONCLUSION: 1. Abnormal examination of the brain demonstrating areas of T2 signal and abnormal diffusion signal i nvolving the globus pallidus bilaterally and the mesial temporal lobes bilaterally. Primary considera tions would include carbon monoxide poisoning versus other partial anoxic brain injury. Please see ab whitfield discussion. Aamir Narayanan MD on July 29, 2016 at 14:53 Board Certified Radiologist. This report was verified electronically.
[2016-07-30] VITALS (13 sets, daily range): BP systolic 133–156; BP diastolic 79–100; PULSE 83–112; RESP 12–26; TEMP 97.4–98.2; O2SAT 93–99
[2016-07-30] MEDS: SODIUM CHLOR 0.9% 1000 ML INJ 1,000 ML IV SCH ×3 (01:00→17:00)
[2016-07-30] MEDS: MORPHINE SULFATE 4 MG/ML INJ IV PRN ×2 (01:21→10:57)
[2016-07-30] MEDS: hydrALAZINE HCL 20 MG/ML VIAL IV PUSH PRN ×4 (02:14→23:13)
[2016-07-30 03:55] LABS: MITOCHONDRIAL ABS LESS THAN 20.0 U (())
[2016-07-30] MEDS: CHLORHEXIDINE GLUCONATE 2 % 1 PACK (2 CLOTHS) TOP SCH (04:00)
[2016-07-30 05:26] LABS: AUTOMATED NEUTROPHIL # 4.7 TH/MM3 (1.8-7.7); BASOPHIL % 0.4 % (0.0-2.0); EOSINOPHIL # 0.1 TH/MM3 (0-0.4); EOSINOPHIL % 1.7 % (0.0-4.0); HEMATOCRIT 29.6 % (35.0-46.0); LYMPH % 11.3 % (9.0-44.0); LYMPHOCYTE # 0.7 TH/MM3 (1.0-4.8); MEAN CELL VOLUME 91.2 FL (80.0-100.0); MEAN CORPUSCULAR HEMOGLOBIN 31.2 PG (27.0-34.0); MEAN CORPUSCULAR HGB CONC 34.2 % (32.0-36.0); MONO % 9.7 % (0.0-8.0); NEUT % 76.9 % (16.0-70.0); PLATELET COUNT 68 TH/MM3 (150-450); RED BLOOD COUNT 3.24 MIL/MM3 (4.00-5.30); RED CELL DISTRIBUTION WIDTH 17.5 % (11.6-17.2); WHITE BLOOD COUNT 6.2 TH/MM3 (4.0-11.0)
[2016-07-30 05:31] LABS: HEMO FLAGS AUTO DIFF
[2016-07-30 05:51] LABS: BICARBONATE 34.1 MEQ/L (21.0-32.0); MAGNESIUM 2.2 MG/DL (1.5-2.5); POTASSIUM 3.7 MEQ/L (3.5-5.1)
[2016-07-30 06:08] LABS: CALCIUM-PROTEIN CORRECTED 8.5 MG/DL (8.5-10.1); TOTAL BILIRUBIN ADULT 1.1 MG/DL (0.2-1.0)
[2016-07-30] MEDS: LACTULOSE SYRUP 20 GM/30 ML CUP PO SCH ×2 (06:14→22:46)
[2016-07-30] MEDS: INSULIN NovoLIN REGULAR SUPPLEMENTAL SCALE SQ SCH ×2 (06:15→10:57)
[2016-07-30 06:33] LABS: CKMB 9.8 NG/ML (0.5-3.6)
--- NOTE | 2016-07-30 07:34 | HHI.CCPN ---
Subjective Remarks/Hospital Course Patient is a 30-year-old female who was brought to the emergency department by the police for medical clearance. Apparently patient was found in bed with her boyfriend this morning who overdosed on drugs. Patient's boyfriend was was found on the bed. In the ER patient reported numbness to the right side of the body and she admits to snorting some cocaine last night. Patient does not recall any of the events overnight or how she got to the hospital. Her drug screen was essentially negative but she admits to cocaine and heroine use. Patient is a very poor historian. EKG shows probable ST elevation V1 and V2 questionable Brugada syndrome. Initially was hypotensive but responded well to IV fluids. Received total 3 L of fluids but remained tachycardic. There were multiple lab abnormalities. Her CBC showed WBC 18.7 with 92% neutrophils. Her chemistry showed potassium of 6.2, BUN of 17 creatinine 2.97, bicarbonate was only 11.2 with an anion gap of 22. Liver enzymes are markedly elevated AST was 6641 ALT was 1419. Patient was hypocalcemic with 6.6 calcium. Lactate came back very elevated at 9.1. Tylenol level was negative. I believe transaminitis is from shocked liver from hypotension-patient denies hepatitis C. CT of the head was negative I evaluated the patient in the ED. She looks critically ill but did not appear to be in distress at this time. Patient denies chest pain. Her troponin came back at 6.24, CPK pending. 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 CK is highly elevated indicating rhabdomyolysis. Dr. Carter does not think this meets criteria for STEMI as the patient is asymptomatic. I did a bedside echo which showed normal ejection fraction no vegetation on the valve on my evaluation. Patient's right thigh is swollen and tense with severe tenderness, distal pulses are palpable but she appears to have compartment syndrome of right thigh. I spoke with Dr. Turner who will evaluate the patient stat for fasciotomy. Continue IV hydration with bicarb infusion 07/26: Afebrile. Complaining of "tingling" in hands. Complains of being dehydrated. Complains of pain in her right thigh. Resting in bed and appears to be in no acute distress. 07/27: Afebrile. Mentation much improved this AM. 350 cc urine output past 12 hours. History status post wound VAC placement to the right thigh. Transfuse 2 units PRBCs and 2 pack platelets overnight. A.m. labs all pending. Hemodynamically stable. 07/28: Afebrile. Patient complaining of menstrual cycle bleeding. Increasing urine output overnight. Wound VAC with 1575 output. Hemoglobin stable. Currently getting potassium replacement. 07/29: Afebrile. Tolerating oral intake. 2 bowel movements overnight. Mother concerned confusion persists. EEG/MRI brain ordered for completeness. Subjective 07/30: Afebrile. Tolerating diet. 4 bowel movements past 24 hours. Notified of of boyfriend yesterday. Osborn act has been lifted. Currently on 2 L nasal cannula. Pain controlled with oral oxycodone. Objective Vital Signs Date Time Temp Pulse Resp B/P Pulse Ox O2 Delivery O2 Flow Rate FiO2 07/30/16 06:00 91 07/30/16 04:00 97.4 17 147/89 98 07/29/16 22:00 Nasal Cannula 2.00 07/26/16 07:57 21 Intake and Output 07/29/16 07/29/16 07/30/16 08:00 16:00 00:00 Intake Total 2012 ml 1620 ml 1459 ml Output Total 1463 ml 1100 ml 1163 ml Balance 549 ml 520 ml 296 ml Result Diagram: 07/30/16 0457 07/30/16 0457 Other Results Microbiology Date/Time Procedure Status Source Growth 07/25/16 16:10 Urine Culture - Final Complete Urine Random Urine Escherichia Coli 07/25/16 14:25 Aerobic Blood Culture - Preliminary Resulted Blood Peripheral NO GROWTH IN 4 DAYS 07/25/16 14:25 Anaerobic Blood Culture - Preliminary Resulted Blood Peripheral NO GROWTH IN 4 DAYS Imaging Last Impressions Brain MRI 07/29/16 0000 Signed Impressions: Service Date/Time: July 13:34 - CONCLUSION: 1. Abnormal examination of the brain demonstrating areas of T2 signal and abnormal diffusion signal involving the globus pallidus bilaterally and the mesial temporal lobes bilaterally. Primary considerations would include carbon monoxide poisoning versus other partial anoxic brain injury. Please see above discussion. Aamir Narayanan MD Chest X-Ray 07/27/16 0000 Signed Impressions: Service Date/Time: Wednesday, July 27, 2016 04:29 - CONCLUSION: Possible interval development of mild interstitial process possibly pulmonary edema and slight left lung base atelectasis. Kathy Berry MD Abdomen Ultrasound 07/26/16 Signed Impressions: Service Date/Time: Tuesday, July 26, 2016 10:21 - CONCLUSION: 1. Small amount of free fluid adjacent to the lower poles of both kidneys. 2. Obscuration of the head of the pancreas, distal IVC and aorta due to overlying bowel gas. 3. Otherwise negative. Judson Cee MD Lower Extremity CT 07/25/16 0000 Signed Impressions: Service Date/Time: Monday, July 25, 2016 18:54 - CONCLUSION: Extensive nonspecific myositis of the right thigh, also involves gluteus medius and minimus proximally and at least medial gastrocnemius below the knee. Infectious/inflammatory and ischemic etiologies would be in the differential. No gas bubbles are seen to substantiate necrotizing fasciitis. No organized/drainable abscess. Glenroy Sheffield MD Hip and Pelvis X-Ray 07/25/16 Signed Impressions: Service Date/Time: Monday, July 25, 2016 16:52 - CONCLUSION: Intact pelvis and right hip. Nonspecific surrounding soft tissue swelling Glenroy Sheffield MD Head CT 07/25/16 0000 Signed Impressions: Service Date/Time: Monday, July 25, 2016 14:38 - CONCLUSION: Negative noncontrast head CT. Glenroy Sheffield MD Chest CT 07/25/16 0000 Signed Impressions: Service Date/Time: Monday, July 25, 2016 16:37 - CONCLUSION: Focal dense consolidation right middle lobe, nonspecific but most likely infectious or inflammatory. Also a 3 mm right basilar pulmonary nodule Followup noncontrast chest CT in a few months recommended to confirm resolution/stability. Glenroy Sheffield MD Abdomen/Pelvis CT 07/25/16 0000 Signed Impressions: Service Date/Time: Monday, July 25, 2016 16:37 - CONCLUSION: 1. Fatty liver and 21 mm right ovarian cyst. Otherwise, no acute abnormality seen within the abdomen or pelvis. 2. Swollen, heterogeneous right hip musculature, primarily gluteus medius and minimus, rectus femoris and vastus lateralis and the adductor muscles. This is nonspecific but suggests a subacute hematoma of these structures. Nothing organized/measurable. 3. Chronic L5 pars defects with grade 2 L5/S1 spondylolisthesis. Glenroy Sheffield MD Objective Remarks GENERAL: 30-year-old female. Critically ill currently resting in bed in no acute distress on nasal cannula SKIN: Warm and dry. No rash. HEAD: Atraumatic. Normocephalic. EYES: Pupils equal and round about 3 mm bilaterally and reactive. No scleral icterus. No injection or drainage. ENT: No nasal bleeding or discharge. Mucous membranes dry and pink NECK: Trachea midline. No JVD. CARDIOVASCULAR: Tachycardia, RR S1, S2. No S4. Faint systolic 2/6 murmur RESPIRATORY: Few crackles appreciated in bases bilaterally. Breath sounds equal bilaterally. GASTROINTESTINAL: Abdomen soft, non-tender, nondistended. Hepatomegaly. Hypoactive bowel sounds. Abrasions. MUSCULOSKELETAL: Right thigh currently with wound VAC lateral aspect. CHAZ 340 cc serosanguineous drainage. Right hip tender with restricted mobility. Positive peripheral edema right greater than left lower extremity. NEUROLOGICAL: Awake and alert. Motor grossly within normal limits. Normal speech. A/P Assessment and Plan NEURO: Altered mental status Polysubstance abuse with drug overdose including cocaine/heroin Right upper extremity numbness History of THC use EtOH -Watch for alcohol and drug withdrawal, Use PRN Ativan for anxiety and oxycodone /morphine as needed for pain -CT of the head 07/25 revealed no acute intracranial findings -Started on aspirin 325 mg daily for elevated troponin. -Thiamine 100 mg IV daily along with multivitamin and folate daily -MRI brain 07/29 revealed T2 signal abnormality globus pallidus and mesial temporal lobe bilaterally. - EEG pending -Psychiatry to clear for Osborn act 07/29 RESP: Mild Respiratory insufficiency secondary to pneumonia/metabolic acidosis Small consolidation right middle lobe\\ Right basilar pulmonary nodule 3 mm - follow-up CT chest 3 months recommended Ongoing tobaccoism -Nasal cannula oxygen to maintain saturations greater than equal to 92% -Incentive spirometry while awake -CT chest 07/25 revealed right middle lobe infiltrate along with 3 mm right basilar pulmonary nodule. -Chest x-ray 07/26 reveals no significant cardio pulmonary findings -DuoNeb every 2 hours when necessary -See ID section for broad-spectrum antibiotics CV: Elevated troponin Severe lactic acidosis - resolved ST elevation in V1 and V2 - bicarbonate infusion at 150 ML per hour for rhabdo will be discontinued. Place on normal saline at 1 25 cc an hour -Discussed extensively with Dr. Carter, does not meet criteria for STEMI -Continue aspirin 325 mg daily, will not use beta blockers due to cocaine abuse -2d echo revealed EF 60-65%. NRWMA. Lactic acid has cleared Norvasc 2.5 mg daily for hypertension GI: Transaminitis Rhabdomyolysis Hyperammonia -Transaminitis most likely secondary to shock/rhabdo -CT of the abdomen and pelvis shows fatty liver/21 mm right ovarian cyst -Negative hepatitis panel -Tolerating renal diet - Xifaxan 550 twice a day/lactulose 30 3 times a day for elevated ammonia. Recheck in AM 12 was 49 - 4 bm overnight - Noted low ceruloplasmin. 8T 95. /Renal: Acute kidney failure Acute rhabdomyolysis -Currently on normal saline 125 cc an hour -07/26 renal ultrasound revealed fluid of at poles of bilateral kidneys otherwise negative -Strict intake output. -Urine electrolytes intrinsic renal process/urine eosinophils negative. - Nephrology consult. Still making adequate urine. - Noted decreased C3 of 19/C4 5 [employer]: Right ovarian cyst Beta hCG 1 ID: Severe sepsis Escherichia coli UTI -Source likely secondary to right thigh compartment syndrome -Continue vancomycin and Zosyn day #6 -Infectious disease consult. Small consolidation in the right middle lobe unlikely to be source of severe sepsis -Rule out infective endocarditis echocardiogram Pertinent cultures 07/25 - blood cultures 2 -no growth 07/25 - urine culture -Escherichia coli HEME: Macrocytic anemia Thrombocytopenia -Monitor CBC, CMP, coags in a.m. - Transfused total 4 units PRBCs, 2 pack platelets, 2 FFP 2 cryo-since admission ENDO: -Sliding-scale insulin if clinically indicated FEN: Replace electrolytes as clinically indicated. Currently on renal diet Msk: Right medial/lateral thigh compartment syndrome L5/S1 spondylolisthesis Status post day [address] Turner - wound VAC placement postop day 3 - 1650 from wound VAC overnight. 340 SS from CHAZ PROPH: -Left lower extremity SCDs. Heparin 5000 units subcutaneous twice a day held in light of decreasing platelet/bleeding LINES: -Utilize peripheral IVs, central line if needed Critical Care: The total critical care time was 45 minutes. Time to perform other separately billable procedures was not included in the critical care time. Wiliam Barron MD Jul 30, 2016 07:33
[2016-07-30] MEDS: SODIUM CHLORIDE 0.9% FLUSH 5 ML FLUSH IV FLUSH SCH ×2 (07:37→21:00)
[2016-07-30 08:45] LABS: PLATELET ESTIMATE SMEAR LOW (NORMAL); PLATELET MORPHOLOGY NORMAL (NORMAL); POLYCHROMASIA 2.4 % (0.0-1.9); SCAN/DIFF AUTO DIFF CONFIRMED
[2016-07-30] MEDS ORDERED: VANCOMYCIN INJ 1,000 MG in SODIUM CHLOR 0.9% 250 ML INJ 250 ML IV SCH (09:00)
--- NOTE | 2016-07-30 09:05 | PD.CARD.PN ---
Subjective Subjective Remarks asleep in nad Objective Vital Signs / I&O Vital Signs Date Time Temp Pulse Resp B/P Pulse Ox O2 Delivery O2 Flow Rate FiO2 07/30/16 08:27 98 Nasal Cannula 2.00 07/30/16 07:00 99 Nasal Cannula 2.00 07/30/16 06:00 91 07/30/16 04:00 110 07/30/16 04:00 97.4 110 17 147/89 98 07/30/16 02:00 87 07/30/16 00:00 98.2 104 23 134/94 99 07/30/16 00:00 104 07/29/16 22:00 92 Nasal Cannula 2.00 07/29/16 22:00 108 07/29/16 20:00 97.8 96 16 149/86 100 07/29/16 20:00 96 07/29/16 20:00 100 Nasal Cannula 2.00 07/29/16 18:00 96 07/29/16 16:00 98.7 99 26 149/93 95 07/29/16 16:00 99 07/29/16 14:00 80 07/29/16 12:18 97 Nasal Cannula 2.00 07/29/16 12:00 98.5 92 16 143/96 99 07/29/16 12:00 92 07/29/16 10:00 101 I/O 07/29/16 07/29/16 07/29/16 07/30/16 07/30/16 07/30/16 07:00 15:00 23:00 07:00 15:00 23:00 Intake Total 2012 ml 1620 ml 1459 ml 1381 ml Output Total 1463 ml 1100 ml 1163 ml 1382 ml Balance 549 ml 520 ml 296 ml -1 ml Intake Oral 600 ml 720 ml 300 ml 600 ml IV Total 1412 ml 900 ml 1159 ml 781 ml Output Urine Total 900 ml 500 ml 600 ml 550 ml Stool Total 3 ml 3 ml 2 ml Drainage Total 560 ml 600 ml 560 ml 830 ml # Bowel Movements 4 Physical Exam GENERAL: SKIN: Warm and dry. HEAD: Normocephalic. EYES: No scleral icterus. No injection or drainage. NECK: Supple, trachea midline. No JVD or lymphadenopathy. CARDIOVASCULAR: Regular rate and rhythm without murmurs, gallops, or rubs. RESPIRATORY: Breath sounds equal bilaterally. No accessory muscle use. GASTROINTESTINAL: Abdomen soft, non-tender, nondistended. MUSCULOSKELETAL: No cyanosis, or edema. BACK: Nontender without obvious deformity. No CVA tenderness. Laboratory Laboratory Tests Test 07/30/16 04:57 White Blood Count 6.2 TH/MM3 Red Blood Count 3.24 MIL/MM3 Hemoglobin 10.1 GM/DL Hematocrit 29.6 % Mean Corpuscular Volume 91.2 FL Mean Corpuscular Hemoglobin 31.2 PG Mean Corpuscular Hemoglobin 34.2 % Concent Red Cell Distribution Width 17.5 % Platelet Count 68 TH/MM3 Mean Platelet Volume 8.6 FL Neutrophils (%) (Auto) 76.9 % Lymphocytes (%) (Auto) 11.3 % Monocytes (%) (Auto) 9.7 % Eosinophils (%) (Auto) 1.7 % Basophils (%) (Auto) 0.4 % Neutrophils # (Auto) 4.7 TH/MM3 Lymphocytes # (Auto) 0.7 TH/MM3 Monocytes # (Auto) 0.6 TH/MM3 Eosinophils # (Auto) 0.1 TH/MM3 Basophils # (Auto) 0.0 TH/MM3 CBC Comment AUTO DIFF Differential Comment AUTO DIFF CONFIRMED Platelet Estimate LOW Platelet Morphology Comment NORMAL Polychromasia 2.4 % Sodium Level 136 MEQ/L Potassium Level 3.7 MEQ/L Chloride Level 91 MEQ/L Carbon Dioxide Level 34.1 MEQ/L Anion Gap 11 MEQ/L Blood Urea Nitrogen 41 MG/DL Creatinine 7.03 MG/DL Estimat Glomerular Filtration 7 ML/MIN Rate Random Glucose 99 MG/DL Calcium Level 7.1 MG/DL Protein Corrected Calcium 8.5 MG/DL Phosphorus Level 4.8 MG/DL Magnesium Level 2.2 MG/DL Total Bilirubin 1.1 MG/DL Aspartate Amino Transf 281 U/L (AST/SGOT) Alanine Aminotransferase 215 U/L (ALT/SGPT) Alkaline Phosphatase 58 U/L Ammonia 49 MCMOL/L Total Creatine Kinase 4182 U/L Creatine Kinase MB 9.8 NG/ML Creatine Kinase MB % 0.2 % Total Protein 4.5 GM/DL Albumin 2.2 GM/DL Random Vancomycin Level 51.7 COMMENT Assessment and Plan Problem List: (1) Drug overdose (2) Hypocalcemia (3) SIRS (systemic inflammatory response syndrome) (4) Renal failure (5) Hyperkalemia (6) Lactic acidosis (7) Altered mental status (8) Severe sepsis (9) Elevated troponin (10) Severe metabolic acidosis (11) Acute kidney failure (12) Leukocytosis (13) Hip hematoma, right (14) Small right middle lobe consolidation (15) Rhabdomyolysis (16) Compartment syndrome of right lower extremity Assessment and Plan 1.) Elevated troponin - suspect d/t global hypoperfusion d/t hypotension form sepsis, ef=65%, patient is assymptomatic, trop < 1 2.) POD 3 - stable Problem Qualifiers (1) Drug overdose: Qualified Code: T50.904A - Drug overdose, undetermined intent, initial encounter (2) Acute kidney failure: Qualified Code: N17.9 - Acute renal failure, unspecified acute renal failure type (3) Leukocytosis: Qualified Code: D72.829 - Leukocytosis, unspecified type Luis Eduardo Carter MD Jul 30, 2016 09:05
[2016-07-30] MEDS: PIPERACIL-TAZO 2.25 GM PREMIX 50 ML IV SCH ×2 (09:16→16:00)
[2016-07-30] MEDS: RIFAXIMIN 550 MG TAB PO SCH ×2 (09:16→22:46)
[2016-07-30] MEDS: MULTIVITAMIN TAB PO SCH (09:16)
[2016-07-30] MEDS: ASPIRIN EC 325 MG TABEC PO SCH (09:16)
[2016-07-30] MEDS: FAMOTIDINE 20 MG TAB PO SCH ×2 (09:16→22:46)
[2016-07-30] MEDS: amLODIPine BESYLATE 5 MG TAB PO SCH (09:16)
[2016-07-30] MEDS: THIAMINE INJ 100 MG in SODIUM CHLORIDE 0.9% INJ 100 ML IV SCH (09:16)
[2016-07-30] MEDS: FOLIC ACID 1 MG TAB PO SCH (09:16)
[2016-07-30] MEDS: VANCOMYCIN INJ 1,000 MG in SODIUM CHLOR 0.9% 250 ML INJ 250 ML IV SCH (10:08)
--- NOTE | 2016-07-30 11:33 | PD.CAR.PN ---
CVT Progress Note Subjective/Hospital Course: Patient with clinical findings of medial and lateral thigh compartment syndrome For OR now Gayatri Baltazar 07/26/16 Patient underwent yesterday and medial and lateral fasciotomy of the thigh debridement Today she underwent washout the both, closure of the medial fasciotomy skin and wound VAC placement on lateral fasciotomy The lateral fasciotomy will need wound VAC for but 2 weeks and then this can be covered with the partial-thickness skin graft by plastic surgery 07/27/16 Status post the thigh compartment syndrome with medial and lateral fasciotomy of the right leg Yesterday patient went for washout closure and drainage of the medial fasciotomy site while the lateral fasciotomy from hip to the knee remains open Wound VAC in place Hemoglobin now stable and there is no other source of bleeding Patient was in active DIC and fibrinolysis for the first 48 hours and this is now abating Agree with blood and blood products administration Platelets remain stable and unless these drop on the 30,000 would probably not transfuse Patient can be out of bed and should be bearing weight on this leg as much as possible 07/28/16 CHAZ drainage from the medial closure of the thighs decreased but I will leave it in till the swelling decreases and the third space abates for otherwise patient will develop a seroma in this area Lateral incision now covered with a wound VAC is draining minimally Hemoglobin remains stable Plan Starting tomorrow will have wound care assist with changing wound VAC at the bedside and I will consult plastic surgery for grafting of the wound in the near future 07/29/16 Medial compartment is closed and drainage is minimal so we will DC CHAZ Lateral thigh compartment is open clean and we will start wound VAC changes today Eventually patient will go to the OR for another washout and perhaps little more closure of this area but for the most part she will need a skin grafting of this area 07/30/2016 Medial incision is clean and dry Lateral incision wound VAC has been changed yesterday and he looks nice and clean and granulating nicely Patient will need several wound VAC exchange to before graft can be placed in this area Continue care Patient can transfer to the floor from my point Objective: Vital Signs Date Time Temp Pulse Resp B/P Pulse Ox O2 Delivery O2 Flow Rate FiO2 07/30/16 10:00 108 07/30/16 08:27 98 Nasal Cannula 2.00 07/30/16 08:00 97.8 110 12 156/94 99 07/30/16 08:00 112 07/30/16 07:00 99 Nasal Cannula 2.00 07/30/16 06:00 91 07/30/16 04:00 110 07/30/16 04:00 97.4 110 17 147/89 98 07/30/16 02:00 87 07/30/16 00:00 98.2 104 23 134/94 99 07/30/16 00:00 104 07/29/16 22:00 92 Nasal Cannula 2.00 07/29/16 22:00 108 07/29/16 20:00 97.8 96 16 149/86 100 07/29/16 20:00 96 07/29/16 20:00 100 Nasal Cannula 2.00 07/29/16 18:00 96 07/29/16 16:00 98.7 99 26 149/93 95 07/29/16 16:00 99 07/29/16 14:00 80 07/29/16 12:18 97 Nasal Cannula 2.00 07/29/16 12:00 98.5 92 16 143/96 99 07/29/16 12:00 92 Labs: Laboratory Tests Test 07/30/16 04:57 White Blood Count 6.2 TH/MM3 (4.0-11.0) Red Blood Count 3.24 MIL/MM3 (4.00-5.30) Hemoglobin 10.1 GM/DL (11.6-15.3) Hematocrit 29.6 % (35.0-46.0) Mean Corpuscular Volume 91.2 FL (80.0-100.0) Mean Corpuscular Hemoglobin 31.2 PG (27.0-34.0) Mean Corpuscular Hemoglobin 34.2 % Concent (32.0-36.0) Red Cell Distribution Width 17.5 % (11.6-17.2) Platelet Count 68 TH/MM3 (150-450) Mean Platelet Volume 8.6 FL (7.0-11.0) Neutrophils (%) (Auto) 76.9 % (16.0-70.0) Lymphocytes (%) (Auto) 11.3 % (9.0-44.0) Monocytes (%) (Auto) 9.7 % (0.0-8.0) Eosinophils (%) (Auto) 1.7 % (0.0-4.0) Basophils (%) (Auto) 0.4 % (0.0-2.0) Neutrophils # (Auto) 4.7 TH/MM3 (1.8-7.7) Lymphocytes # (Auto) 0.7 TH/MM3 (1.0-4.8) Monocytes # (Auto) 0.6 TH/MM3 (0-0.9) Eosinophils # (Auto) 0.1 TH/MM3 (0-0.4) Basophils # (Auto) 0.0 TH/MM3 (0-0.2) CBC Comment AUTO DIFF Differential Comment AUTO DIFF CONFIRMED Platelet Estimate LOW (NORMAL) Platelet Morphology Comment NORMAL (NORMAL) Polychromasia 2.4 % (0.0-1.9) Sodium Level 136 MEQ/L (136-145) Potassium Level 3.7 MEQ/L (3.5-5.1) Chloride Level 91 MEQ/L (98-107) Carbon Dioxide Level 34.1 MEQ/L (21.0-32.0) Anion Gap 11 MEQ/L (5-15) Blood Urea Nitrogen 41 MG/DL (7-18) Creatinine 7.03 MG/DL (0.50-1.00) Estimat Glomerular Filtration 7 ML/MIN (>89) Rate Random Glucose 99 MG/DL (74-106) Calcium Level 7.1 MG/DL (8.5-10.1) Protein Corrected Calcium 8.5 MG/DL (8.5-10.1) Phosphorus Level 4.8 MG/DL (2.5-4.9) Magnesium Level 2.2 MG/DL (1.5-2.5) Total Bilirubin 1.1 MG/DL (0.2-1.0) Aspartate Amino Transf 281 U/L (15-37) (AST/SGOT) Alanine Aminotransferase 215 U/L (10-53) (ALT/SGPT) Alkaline Phosphatase 58 U/L (45-117) Ammonia 49 MCMOL/L (11-32) Total Creatine Kinase 4182 U/L (26-192) Creatine Kinase MB 9.8 NG/ML (0.5-3.6) Creatine Kinase MB % 0.2 % (0.0-4.0) Total Protein 4.5 GM/DL (6.4-8.2) Albumin 2.2 GM/DL (3.4-5.0) Random Vancomycin Level 51.7 COMMENT Result Diagram: 07/30/16 0457 07/30/16 0457 (1) Drug overdose (2) Hypocalcemia (3) SIRS (systemic inflammatory response syndrome) (4) Renal failure (5) Hyperkalemia (6) Lactic acidosis (7) Altered mental status (8) Severe sepsis (9) Elevated troponin (10) Severe metabolic acidosis (11) Acute kidney failure (12) Leukocytosis (13) Hip hematoma, right (14) Small right middle lobe consolidation (15) Rhabdomyolysis (16) Compartment syndrome of right lower extremity Problem Qualifiers (1) Drug overdose: Qualified Code: T50.904A - Drug overdose, undetermined intent, initial encounter (2) Acute kidney failure: Qualified Code: N17.9 - Acute renal failure, unspecified acute renal failure type (3) Leukocytosis: Qualified Code: D72.829 - Leukocytosis, unspecified type Saw Turner MD Jul 30, 2016 11:33
--- NOTE | 2016-07-30 11:46 | HHI.NPPN ---
Subjective History of Present Illness 30 year old female with drug OD, Rt thigh compartment syndrome s/p Fasciotomy, Rhabdomyolysis, ARF Review of Systems General Constitutional: Fatigue Musculoskeletal MS: Pain/Stiffness Objective Data Data 07/29/16 07/30/16 18:59 06:59 Intake Total 1620 ml 2840 ml Output Total 1100 ml 2545 ml Balance 520 ml 295 ml Intake Oral 720 ml 900 ml IV Total 900 ml 1940 ml Output Urine Total 500 ml 1150 ml Stool Total 5 ml Drainage Total 600 ml 1390 ml # Bowel Movements 4 Vital Signs Date Time Temp Pulse Resp B/P Pulse Ox O2 Delivery O2 Flow Rate FiO2 07/30/16 10:00 108 07/30/16 08:27 98 Nasal Cannula 2.00 07/30/16 08:00 97.8 110 12 156/94 99 07/30/16 08:00 112 07/30/16 07:00 99 Nasal Cannula 2.00 07/30/16 06:00 91 07/30/16 04:00 110 07/30/16 04:00 97.4 110 17 147/89 98 07/30/16 02:00 87 07/30/16 00:00 98.2 104 23 134/94 99 07/30/16 00:00 104 07/29/16 22:00 92 Nasal Cannula 2.00 07/29/16 22:00 108 07/29/16 20:00 97.8 96 16 149/86 100 07/29/16 20:00 96 07/29/16 20:00 100 Nasal Cannula 2.00 07/29/16 18:00 96 07/29/16 16:00 98.7 99 26 149/93 95 07/29/16 16:00 99 07/29/16 14:00 80 07/29/16 12:18 97 Nasal Cannula 2.00 07/29/16 12:00 98.5 92 16 143/96 99 07/29/16 12:00 92 -: 07/30/16 0457 07/30/16 0457 Physical Exam General Appearance: Well Developed, Well Nourished Neck Neck Exam: Neck Supple Pulmonary Resp Exam: Clear Bilaterally, Breath Sounds Equal Cardiology CV Exam: Regular, Normal Sinus Rhythm Gastrointestinal/Abdomen GI Exam: Soft, Non-Tender, Bowel Sounds Present Extremeties Extremities Exam: Trace Edema Extremeties Remarks Rt thigh vacuum dressing Assessment/Plan Problem List: (1) Acute kidney failure Plan: This is likely due to rhabdomyolysis and acute tubular necrosis Non oliguric UOP 1.6 L Cr higher 7.1 D/W Dr. Barron that she is not improving and will need dialysis by tomorrow Vascath in by 07/31 and HD Planned on bicarb drip IVF sterile water with 100 meq NaHO3/KCL 20 meq on Vancomycin to q 48 hrs as Random Vancomycin level 51.7 will stop it last dose on 07/27 Immunology was negative except low C3 C4 , likely due to liver damage from initial insult (2) Compartment syndrome of right lower extremity Plan: Status post surgery (3) SIRS (systemic inflammatory response syndrome) Plan: Continue with broad-spectrum antibiotics (4) UTI (urinary tract infection) Plan: On Zosyn (5) Severe sepsis Plan: Status post fasciotomy right leg (6) Small right middle lobe consolidation Plan: On antibiotics Problem Qualifiers (1) Acute kidney failure: Qualified Code: N17.9 - Acute renal failure, unspecified acute renal failure type Vinny Fletcher MD Jul 30, 2016 11:46
--- NOTE | 2016-07-30 13:44 | MG ---
cc: WILMER MENDOZA M.D. Lab No: [id number] Date: 07/30/2016 Age: 30 Sex: F Race: __ INDICATIONS A 30-year-old. Hyperventilation not performed. Overdose on drugs, snorting cocaine, stiffness, possible seizure. MEDICATIONS 1. Folic acid 2. Vancomycin DESCRIPTION A 7 Hz 60 microvolt posterior rhythm is seen which is symmetric and synchronous. Sometimes some slowing down in the 5 Hz range is seen. A lot of bifrontal muscle artifact is noted and movement artifact which makes interpretation difficult at times. Three head twitches were seen which did not show any change in the background. Some delta slowing is seen over the midline central head regions and bitemporally. It almost looks like sleep activity, but the tech does not note that the patient is sleeping. What definitely looked like vertex sharp waves were seen. I think the patient does reach stage II sleep. Photic stimulation is performed with some symmetric posterior driving in some of the lower frequencies. No seizure activity is noted. No hemisphere asymmetries are noted. IMPRESSION Diffuse slowing consistent with a moderate diffuse encephalopathy. Appears to have some normal sleep activity. A few head twitches were noted which did not correlate with any seizure activity. MD MAJO Anderson/DARRELL /12:58 PM /1:28 PM
--- NOTE | 2016-07-30 15:25 | HHI.GIFU ---
Subjective Remarks Resting in bed. Just got back from having vascath placed. Plan is to start HD tomorrow. No n/v, no abdominal pain . (Sangeeta Dixon) Objective Vitals I&O Vital Signs Date Time Temp Pulse Resp B/P Pulse Ox O2 Delivery O2 Flow Rate FiO2 07/30/16 12:00 100 07/30/16 12:00 98.0 103 26 133/79 93 07/30/16 10:00 108 07/30/16 08:27 98 Nasal Cannula 2.00 07/30/16 08:00 97.8 110 12 156/94 99 07/30/16 08:00 112 07/30/16 07:00 99 Nasal Cannula 2.00 07/30/16 06:00 91 07/30/16 04:00 110 07/30/16 04:00 97.4 110 17 147/89 98 07/30/16 02:00 87 07/30/16 00:00 98.2 104 23 134/94 99 07/30/16 00:00 104 07/29/16 22:00 92 Nasal Cannula 2.00 07/29/16 22:00 108 07/29/16 20:00 97.8 96 16 149/86 100 07/29/16 20:00 96 07/29/16 20:00 100 Nasal Cannula 2.00 07/29/16 18:00 96 07/29/16 16:00 98.7 99 26 149/93 95 07/29/16 16:00 99 I/O 07/29/16 07/29/16 07/29/16 07/30/16 07/30/16 07/30/16 06:59 14:59 22:59 06:59 14:59 22:59 Intake Total 2012 ml 1620 ml 1459 ml 1381 ml 1188 ml Output Total 1463 ml 1100 ml 1163 ml 1382 ml 1253 ml Balance 549 ml 520 ml 296 ml -1 ml -65 ml Intake Oral 600 ml 720 ml 300 ml 600 ml 300 ml IV Total 1412 ml 900 ml 1159 ml 781 ml 888 ml Output Urine Total 900 ml 500 ml 600 ml 550 ml 450 ml Stool Total 3 ml 3 ml 2 ml 3 ml Drainage Total 560 ml 600 ml 560 ml 830 ml 800 ml # Bowel Movements 4 Laboratory Laboratory Tests Test 07/30/16 04:57 White Blood Count 6.2 Red Blood Count 3.24 Hemoglobin 10.1 Hematocrit 29.6 Mean Corpuscular Volume 91.2 Mean Corpuscular Hemoglobin 31.2 Mean Corpuscular Hemoglobin 34.2 Concent Red Cell Distribution Width 17.5 Platelet Count 68 Mean Platelet Volume 8.6 Neutrophils (%) (Auto) 76.9 Lymphocytes (%) (Auto) 11.3 Monocytes (%) (Auto) 9.7 Eosinophils (%) (Auto) 1.7 Basophils (%) (Auto) 0.4 Neutrophils # (Auto) 4.7 Lymphocytes # (Auto) 0.7 Monocytes # (Auto) 0.6 Eosinophils # (Auto) 0.1 Basophils # (Auto) 0.0 CBC Comment AUTO DIFF Differential Comment AUTO DIFF CONFIRMED Platelet Estimate LOW Platelet Morphology Comment NORMAL Polychromasia 2.4 Sodium Level 136 Potassium Level 3.7 Chloride Level 91 Carbon Dioxide Level 34.1 Anion Gap 11 Blood Urea Nitrogen 41 Creatinine 7.03 Estimat Glomerular Filtration 7 Rate Random Glucose 99 Calcium Level 7.1 Protein Corrected Calcium 8.5 Phosphorus Level 4.8 Magnesium Level 2.2 Total Bilirubin 1.1 Aspartate Amino Transf 281 (AST/SGOT) Alanine Aminotransferase 215 (ALT/SGPT) Alkaline Phosphatase 58 Ammonia 49 Total Creatine Kinase 4182 Creatine Kinase MB 9.8 Creatine Kinase MB % 0.2 Total Protein 4.5 Albumin 2.2 Random Vancomycin Level 51.7 Date/Time Procedure Status Source Growth 07/25/16 16:10 Urine Culture - Final Complete Urine Random Urine Escherichia Coli Imaging Last Impressions Brain MRI 07/29/16 0000 Signed Impressions: Service Date/Time: July 13:34 - CONCLUSION: 1. Abnormal examination of the brain demonstrating areas of T2 signal and abnormal diffusion signal involving the globus pallidus bilaterally and the mesial temporal lobes bilaterally. Primary considerations would include carbon monoxide poisoning versus other partial anoxic brain injury. Please see above discussion. Aamir Narayanan MD Chest X-Ray 07/27/16 0000 Signed Impressions: Service Date/Time: Wednesday, July 27, 2016 04:29 - CONCLUSION: Possible interval development of mild interstitial process possibly pulmonary edema and slight left lung base atelectasis. Kathy Berry MD Abdomen Ultrasound 07/26/16 0000 Signed Impressions: Service Date/Time: Tuesday, July 26, 2016 10:21 - CONCLUSION: 1. Small amount of free fluid adjacent to the lower poles of both kidneys. 2. Obscuration of the head of the pancreas, distal IVC and aorta due to overlying bowel gas. 3. Otherwise negative. Judson Cee MD Lower Extremity CT 07/25/16 0000 Signed Impressions: Service Date/Time: Monday, July 25, 2016 18:54 - CONCLUSION: Extensive nonspecific myositis of the right thigh, also involves gluteus medius and minimus proximally and at least medial gastrocnemius below the knee. Infectious/inflammatory and ischemic etiologies would be in the differential. No gas bubbles are seen to substantiate necrotizing fasciitis. No organized/drainable abscess. Glenroy Sheffield MD Hip and Pelvis X-Ray 07/25/16 0000 Signed Impressions: Service Date/Time: Monday, July 25, 2016 16:52 - CONCLUSION: Intact pelvis and right hip. Nonspecific surrounding soft tissue swelling Glenroy Sheffield MD Head CT 07/25/16 0000 Signed Impressions: Service Date/Time: Monday, July 25, 2016 14:38 - CONCLUSION: Negative noncontrast head CT. Glenroy Sheffield MD Chest CT 07/25/16 0000 Signed Impressions: Service Date/Time: Monday, July 25, 2016 16:37 - CONCLUSION: Focal dense consolidation right middle lobe, nonspecific but most likely infectious or inflammatory. Also a 3 mm right basilar pulmonary nodule Followup noncontrast chest CT in a few months recommended to confirm resolution/stability. Glenroy Sheffield MD Abdomen/Pelvis CT 07/25/16 0000 Signed Impressions: Service Date/Time: Monday, July 25, 2016 16:37 - CONCLUSION: 1. Fatty liver and 21 mm right ovarian cyst. Otherwise, no acute abnormality seen within the abdomen or pelvis. 2. Swollen, heterogeneous right hip musculature, primarily gluteus medius and minimus, rectus femoris and vastus lateralis and the adductor muscles. This is nonspecific but suggests a subacute hematoma of these structures. Nothing organized/measurable. 3. Chronic L5 pars defects with grade 2 L5/S1 spondylolisthesis. Glenroy Sheffield MD Physical Exam CHEST: CTA CARDIAC: RRR ABDOMEN: Soft, nondistended, nontender; no hepatosplenomegaly; bowel sounds are present in all four quadrants. EXTREMITIES: No clubbing, cyanosis. Right thigh lateral wound with wound vac d/ i SKIN: Normal; no rash; no jaundice. PBX MANAGER: No focal deficits; alert and oriented times three. (Sangeeta Dixon) Assessment and Plan Plan ASSESSMENT: - Elevated LFTs, possibly combination of shocked liver and rhabdomyolysis. Abdomen Ultrasound (07/26/16)----> 1. Small amount of free fluid adjacent to the lower poles of both kidneys. 2. Obscuration of the head of the pancreas, distal IVC and aorta due to overlying bowel gas. 3. Otherwise negative. Abdomen/Pelvis CT (07/25/16)----> 1. Fatty liver and 21 mm right ovarian cyst. Otherwise, no acute abnormality seen within the abdomen or pelvis. 2. Swollen, heterogeneous right hip musculature, primarily gluteus medius and minimus, rectus femoris and vastus lateralis and the adductor muscles. This is nonspecific but suggests a subacute hematoma of these structures. Nothing organized/measurable. 3. Chronic L5 pars defects with grade 2 L5/S1 spondylolisthesis. Toxicology report---- > Acetaminophen less than 2.0, Salicylates less than 1.7, Ethyl alcohol 28, toxicology screen negative- although the patient reports that she does use pills and smoke marijuana. Hepatitis panel negative. She does have documented episodes of hypotension as well as rhabdomyolysis. JORY negative, ASMA negative, AMA pending, Ferritin 400, Iron saturation 81.4 (post transfusion), Ceruloplasmin 9, ALpha 1 Antitrypsin 95. LFTs improving, T. Bili 1.1, AST 281, ALT 215, Alk Phosph 58. - Low Ceruloplasmin level 9. Brain MRI (07/29/16)----> 1. Abnormal examination of the brain demonstrating areas of T2 signal and abnormal diffusion signal involving the globus pallidus bilaterally and the mesial temporal lobes bilaterally. Primary considerations would include carbon monoxide poisoning versus other partial anoxic brain injury. Please see above discussion. Of note, Branden's disease was also mentioned in the differential. Will get 24 hour urine for copper- although this cannot be sent until Tuesday and it will then be resulted on Tuesday. - Low Alpha 1 Antitrypsin 95. Alpha 1 Antitrypsin Phenotype pending. - AMS, IMPROVED. Ammonia 49, but alert and oriented. Xifaxan, Lactulose. - Rhabdomyolysis. IVF per [facility], CPK > 4,182 - Compartment syndrome, s/p fasciotomy, wound vac placement. - Sepsis, elevated lactic acid, likely t/t right thigh compartment syndrome. - Coagulopathy, ? DIC per [facility] - Anemia, 10.1/29.6. - CARLITO, worsening. Creat 7.03. S/P Vascath, HD to be started tomorrow Plan: - JACY - 24 hour urine for copper - Alpha 1 Antitrypsin phenotype - Monitor LFTs - Avoid hypotension - Avoid hepatoxins - Consider liver biopsy based on results of above - Supportive care - Further recommendations to follow based on results of above - PT seen and examined by Dr. Monreal and myself and this note is written on his behalf (Sangeeta Dixon) Physician Comments Patient seen and examined Agree with above Continue with current supportive care Monitor labs We will obtain 24-hour urine for copper to rule out Branden and alpha-1 antitrypsin phenotyping (Karri Monreal MD) Sangeeta Dixon Jul 30, 2016 15:25 Karri Monreal MD Jul 30, 2016 18:21
--- NOTE | 2016-07-30 16:12 | PD.RAD ---
Post Procedure Progress Note Pre Procedure Diagnosis: (1) Acute kidney failure Post Procedure Diagnosis: (1) Acute kidney failure Procedure Date: Jul 30, 2016 Supervising Radiologist: Judson Cee Proceduralist/Assist: Sayda Hamilton RT(R), RT Eufemia(R) Anesthesia: Local Plan of Activity Patient to Unit: Critical Care Patient Condition: Good See PACS Report for procedural detail/treatment Central Venous Access Device Procedure 1 Right Internal Jugular Hemodialysis Catheter Non-Tunneled Placement dual lumen [place]: 16 PICC Line Length (cm): 15 Judson Cee MD Jul 30, 2016 16:12
--- NOTE | 2016-07-30 22:15 | HHI.IDPN ---
Subjective Subjective Remarks Late entry- pt was seen earlier today around 1400 pt is now on HD + memroy deficits afebrile Antibiotics pip tazo Allergies: Coded Allergies: No Known Allergies (Unverified , 12/10/14) Objective . Vital Signs Date Time Temp Pulse Resp B/P Pulse Ox O2 Delivery O2 Flow Rate FiO2 07/30/16 20:50 96 21 07/30/16 18:00 103 07/30/16 16:00 86 07/30/16 16:00 98.0 83 16 153/100 95 07/30/16 12:00 100 07/30/16 12:00 98.0 103 26 133/79 93 07/30/16 10:00 108 07/30/16 08:27 98 Nasal Cannula 2.00 07/30/16 08:00 97.8 110 12 156/94 99 07/30/16 08:00 112 07/30/16 07:00 99 Nasal Cannula 2.00 07/30/16 06:00 91 07/30/16 04:00 110 07/30/16 04:00 97.4 110 17 147/89 98 07/30/16 02:00 87 07/30/16 00:00 98.2 104 23 134/94 99 07/30/16 00:00 104 07/29/16 07/29/16 07/30/16 15:00 23:00 07:00 Intake Total 1620 ml 1459 ml 1381 ml Output Total 1100 ml 1163 ml 1382 ml Balance 520 ml 296 ml -1 ml Intake Oral 720 ml 300 ml 600 ml IV Total 900 ml 1159 ml 781 ml Output Urine Total 500 ml 600 ml 550 ml Stool Total 3 ml 2 ml Drainage Total 600 ml 560 ml 830 ml # Bowel Movements 4 . Laboratory Tests Test 07/29/16 07/30/16 04:55 04:57 White Blood Count 5.4 TH/MM3 6.2 TH/MM3 Red Blood Count 3.05 MIL/MM3 3.24 MIL/MM3 Hemoglobin 9.5 GM/DL 10.1 GM/DL Hematocrit 27.4 % 29.6 % Mean Corpuscular Volume 89.8 FL 91.2 FL Mean Corpuscular Hemoglobin 31.3 PG 31.2 PG Mean Corpuscular Hemoglobin 34.8 % 34.2 % Concent Red Cell Distribution Width 17.5 % 17.5 % Platelet Count 61 TH/MM3 68 TH/MM3 Mean Platelet Volume 7.9 FL 8.6 FL Neutrophils (%) (Auto) 80.1 % 76.9 % Lymphocytes (%) (Auto) 11.8 % 11.3 % Monocytes (%) (Auto) 6.5 % 9.7 % Eosinophils (%) (Auto) 1.2 % 1.7 % Basophils (%) (Auto) 0.4 % 0.4 % Neutrophils # (Auto) 4.3 TH/MM3 4.7 TH/MM3 Lymphocytes # (Auto) 0.6 TH/MM3 0.7 TH/MM3 Monocytes # (Auto) 0.3 TH/MM3 0.6 TH/MM3 Eosinophils # (Auto) 0.1 TH/MM3 0.1 TH/MM3 Basophils # (Auto) 0.0 TH/MM3 0.0 TH/MM3 CBC Comment AUTO DIFF AUTO DIFF Differential Comment AUTO DIFF AUTO DIFF CONFIRMED CONFIRMED Platelet Estimate LOW LOW Platelet Morphology Comment NORMAL NORMAL Polychromasia 2.4 % Laboratory Tests Test 07/29/16 07/30/16 04:55 04:57 Sodium Level 138 MEQ/L 136 MEQ/L Potassium Level 3.7 MEQ/L 3.7 MEQ/L Chloride Level 86 MEQ/L 91 MEQ/L Carbon Dioxide Level 41.6 MEQ/L 34.1 MEQ/L Anion Gap 10 MEQ/L 11 MEQ/L Blood Urea Nitrogen 38 MG/DL 41 MG/DL Creatinine 6.34 MG/DL 7.03 MG/DL Estimat Glomerular Filtration 8 ML/MIN 7 ML/MIN Rate Random Glucose 86 MG/DL 99 MG/DL Lactic Acid Level 0.9 mmol/L Calcium Level 6.5 MG/DL 7.1 MG/DL Protein Corrected Calcium 7.9 MG/DL 8.5 MG/DL Phosphorus Level 4.1 MG/DL 4.8 MG/DL Magnesium Level 1.9 MG/DL 2.2 MG/DL Total Bilirubin 1.3 MG/DL 1.1 MG/DL Aspartate Amino Transf 480 U/L 281 U/L (AST/SGOT) Alanine Aminotransferase 269 U/L 215 U/L (ALT/SGPT) Alkaline Phosphatase 60 U/L 58 U/L Total Creatine Kinase 7731 U/L 4182 U/L Creatine Kinase MB 17.0 NG/ML 9.8 NG/ML Creatine Kinase MB % 0.2 % 0.2 % Troponin I 0.44 NG/ML Total Protein 4.4 GM/DL 4.5 GM/DL Albumin 2.4 GM/DL 2.2 GM/DL Ammonia 49 MCMOL/L Imaging Last Impressions Brain MRI 07/29/16 0000 Signed Impressions: Service Date/Time: July 13:34 - CONCLUSION: 1. Abnormal examination of the brain demonstrating areas of T2 signal and abnormal diffusion signal involving the globus pallidus bilaterally and the mesial temporal lobes bilaterally. Primary considerations would include carbon monoxide poisoning versus other partial anoxic brain injury. Please see above discussion. Aamir Narayanan MD Chest X-Ray 07/27/16 0000 Signed Impressions: Service Date/Time: Wednesday, July 27, 2016 04:29 - CONCLUSION: Possible interval development of mild interstitial process possibly pulmonary edema and slight left lung base atelectasis. Kathy Berry MD Abdomen Ultrasound 07/26/16 0000 Signed Impressions: Service Date/Time: Tuesday, July 26, 2016 10:21 - CONCLUSION: 1. Small amount of free fluid adjacent to the lower poles of both kidneys. 2. Obscuration of the head of the pancreas, distal IVC and aorta due to overlying bowel gas. 3. Otherwise negative. Judson Cee MD Lower Extremity CT 07/25/16 0000 Signed Impressions: Service Date/Time: Monday, July 25, 2016 18:54 - CONCLUSION: Extensive nonspecific myositis of the right thigh, also involves gluteus medius and minimus proximally and at least medial gastrocnemius below the knee. Infectious/inflammatory and ischemic etiologies would be in the differential. No gas bubbles are seen to substantiate necrotizing fasciitis. No organized/drainable abscess. Glenroy Sheffield MD Hip and Pelvis X-Ray 07/25/16 0000 Signed Impressions: Service Date/Time: Monday, July 25, 2016 16:52 - CONCLUSION: Intact pelvis and right hip. Nonspecific surrounding soft tissue swelling Glenroy Sheffield MD Head CT 07/25/16 0000 Signed Impressions: Service Date/Time: Monday, July 25, 2016 14:38 - CONCLUSION: Negative noncontrast head CT. Glenroy Sheffield MD Chest CT 07/25/16 0000 Signed Impressions: Service Date/Time: Monday, July 25, 2016 16:37 - CONCLUSION: Focal dense consolidation right middle lobe, nonspecific but most likely infectious or inflammatory. Also a 3 mm right basilar pulmonary nodule Followup noncontrast chest CT in a few months recommended to confirm resolution/stability. Glenroy Sheffield MD Abdomen/Pelvis CT 07/25/16 0000 Signed Impressions: Service Date/Time: Monday, July 25, 2016 16:37 - CONCLUSION: 1. Fatty liver and 21 mm right ovarian cyst. Otherwise, no acute abnormality seen within the abdomen or pelvis. 2. Swollen, heterogeneous right hip musculature, primarily gluteus medius and minimus, rectus femoris and vastus lateralis and the adductor muscles. This is nonspecific but suggests a subacute hematoma of these structures. Nothing organized/measurable. 3. Chronic L5 pars defects with grade 2 L5/S1 spondylolisthesis. Glenroy Sheffield MD Physical Exam CONSTITUTIONAL/GENERAL: This is an adequately nourished patient, in no apparent distress. SKIN: No jaundice, rashes, or lesions. Skin temperature appropriate. Not diaphoretic. CARDIOVASCULAR: Regular rate and rhythm without murmurs, gallops, or rubs. No JVD. Peripheral pulses symmetric. RESPIRATORY/CHEST: Symmetric, unlabored respirations. Clear to auscultation. Breath sounds equal bilaterally. No wheezes, rales, or rhonchi. GASTROINTESTINAL: Abdomen soft, non-tender, mildly distended. No hepato- splenomegaly, or palpable masses. No guarding. Bowel sounds present. GENITOURINARY: Without palpable bladder distension. Sinclair catheter in place with small amount of dark urine MUSCULOSKELETAL: Extremities without clubbing, cyanosis, Less obvious RLE non piting edema. VAC dressing in place R thigh with serosangious dc No joint tenderness or effusion noted. No calf tenderness. No mottling or clubbing. R foot is warm, well perfuised but with less prominent numbness LYMPHATICS: No palpable cervical or supraclavicular adenopathy. NEUROLOGICAL: Awake and alert. Motor and sensory grossly within normal limits. Follows commands. normal speech; confused Moves all extremities. PSYCHIATRIC: calm and cooperative Assessment & Plan Remarks R thigh myositis involving multiple muscel groups compartment sd sp fasciotomy Illicit drug OD Sepsis (lactic acidosis, leukocytosis) suspected vs other condition - blood clx negative : final UTI E.coli Anoxic brain injury vs nai monoxide dc zosyn start levaquine po stop vancomycin Kimi Carter MD Jul 30, 2016 22:15
[2016-07-30] MEDS: LEVOFLOXACIN 500 MG TAB PO SCH (22:54)
[2016-07-31] VITALS (14 sets, daily range): BP systolic 143–162; BP diastolic 46–109; PULSE 102–127; RESP 12–20; TEMP 98–98.3; O2SAT 93–100
[2016-07-31] MEDS: SODIUM CHLOR 0.9% 1000 ML INJ 1,000 ML IV SCH ×3 (01:21→16:52)
[2016-07-31] MEDS: MORPHINE SULFATE 4 MG/ML INJ IV PRN ×4 (03:04→19:33)
[2016-07-31] MEDS: CHLORHEXIDINE GLUCONATE 2 % 1 PACK (2 CLOTHS) TOP SCH (04:00)
[2016-07-31 04:50] LABS: ALT (GPT) 147 U/L (10-53); ANION GAP 12 MEQ/L (5-15); AST (GOT) 139 U/L (15-37); BLOOD UREA NITROGEN 43 MG/DL (7-18); CHLORIDE 93 MEQ/L (98-107); GLOMERULAR FILTRATION RATE 6 ML/MIN (>89); MAGNESIUM 2.1 MG/DL (1.5-2.5); POTASSIUM 3.4 MEQ/L (3.5-5.1); SODIUM (NA) 136 MEQ/L (136-145)
[2016-07-31 05:03] LABS: ALKALINE PHOSPHATASE 64 U/L (45-117); CREATINE KINASE 1692 U/L (26-192); TOTAL BILIRUBIN ADULT 0.9 MG/DL (0.2-1.0)
[2016-07-31 05:13] LABS: AUTOMATED NEUTROPHIL # 4.6 TH/MM3 (1.8-7.7); BASOPHIL % 0.3 % (0.0-2.0); EOSINOPHIL # 0.1 TH/MM3 (0-0.4); EOSINOPHIL % 1.6 % (0.0-4.0); HEMATOCRIT 26.9 % (35.0-46.0); LYMPH % 8.5 % (9.0-44.0); LYMPHOCYTE # 0.5 TH/MM3 (1.0-4.8); MEAN CELL VOLUME 90.6 FL (80.0-100.0); MEAN CORPUSCULAR HEMOGLOBIN 31.7 PG (27.0-34.0); MONO % 12.1 % (0.0-8.0); NEUT % 77.5 % (16.0-70.0); PLATELET COUNT 67 TH/MM3 (150-450); RED BLOOD COUNT 2.97 MIL/MM3 (4.00-5.30); RED CELL DISTRIBUTION WIDTH 17.9 % (11.6-17.2); WHITE BLOOD COUNT 5.9 TH/MM3 (4.0-11.0)
[2016-07-31 05:26] LABS: CKMB 4.7 NG/ML (0.5-3.6)
[2016-07-31 05:36] LABS: HEMO FLAGS DIFF FINAL
[2016-07-31] MEDS: HEPARIN SODIUM - IV 10,000 UNITS/10 ML VIAL IVF PRN (07:12)
[2016-07-31] MEDS: SODIUM CHLORIDE 0.9% FLUSH 5 ML FLUSH IV FLUSH SCH ×2 (07:13→19:34)
[2016-07-31] MEDS: RIFAXIMIN 550 MG TAB PO SCH ×2 (08:52→20:25)
[2016-07-31] MEDS: LACTULOSE SYRUP 20 GM/30 ML CUP PO SCH ×2 (08:52→20:25)
[2016-07-31] MEDS: ASPIRIN EC 325 MG TABEC PO SCH (08:52)
[2016-07-31] MEDS: THIAMINE INJ 100 MG in SODIUM CHLORIDE 0.9% INJ 100 ML IV SCH (08:52)
[2016-07-31] MEDS: FOLIC ACID 1 MG TAB PO SCH (08:52)
[2016-07-31] MEDS: amLODIPine BESYLATE 5 MG TAB PO SCH (08:52)
[2016-07-31] MEDS: MULTIVITAMIN TAB PO SCH (08:53)
[2016-07-31] MEDS: FAMOTIDINE 20 MG TAB PO SCH ×2 (08:53→20:25)
--- NOTE | 2016-07-31 10:33 | PD.CARD.PN ---
Subjective Subjective Remarks alert in nad Objective Vital Signs / I&O Vital Signs Date Time Temp Pulse Resp B/P Pulse Ox O2 Delivery O2 Flow Rate FiO2 07/31/16 10:00 105 07/31/16 09:43 100 21 07/31/16 08:00 98.0 127 18 145/100 100 07/31/16 08:00 127 07/31/16 07:00 96 Room Air 07/31/16 06:00 102 07/31/16 04:00 98.3 104 20 155/109 95 07/31/16 04:00 104 07/31/16 02:00 105 07/31/16 00:00 98.2 103 16 153/100 93 07/31/16 00:00 103 07/30/16 22:00 102 07/30/16 20:50 96 21 07/30/16 20:00 98.1 100 20 147/99 93 07/30/16 20:00 93 Room Air 07/30/16 20:00 100 07/30/16 18:00 103 07/30/16 16:00 86 07/30/16 16:00 98.0 83 16 153/100 95 07/30/16 12:00 100 07/30/16 12:00 98.0 103 26 133/79 93 I/O 07/30/16 07/30/16 07/30/16 07/31/16 07/31/16 07/31/16 06:59 14:59 22:59 06:59 14:59 22:59 Intake Total 1381 ml 1188 ml 1456 ml 1322 ml Output Total 1382 ml 1253 ml 950 ml 1202 ml 1000 ml Balance -1 ml -65 ml 506 ml 120 ml -1000 ml Intake Oral 600 ml 300 ml 600 ml 400 ml IV Total 781 ml 888 ml 856 ml 922 ml Output Urine Total 550 ml 450 ml 500 ml 300 ml Stool Total 2 ml 3 ml 0 ml 2 ml Drainage Total 830 ml 800 ml 450 ml 900 ml Hemodialysis 1000 ml Physical Exam GENERAL: SKIN: Warm and dry. HEAD: Normocephalic. EYES: No scleral icterus. No injection or drainage. NECK: Supple, trachea midline. No JVD or lymphadenopathy. CARDIOVASCULAR: Regular rate and rhythm without murmurs, gallops, or rubs. RESPIRATORY: Breath sounds equal bilaterally. No accessory muscle use. GASTROINTESTINAL: Abdomen soft, non-tender, nondistended. MUSCULOSKELETAL: No cyanosis, or edema. BACK: Nontender without obvious deformity. No CVA tenderness. Laboratory Laboratory Tests Test 07/31/16 03:39 White Blood Count 5.9 TH/MM3 Red Blood Count 2.97 MIL/MM3 Hemoglobin 9.4 GM/DL Hematocrit 26.9 % Mean Corpuscular Volume 90.6 FL Mean Corpuscular Hemoglobin 31.7 PG Mean Corpuscular Hemoglobin 35.0 % Concent Red Cell Distribution Width 17.9 % Platelet Count 67 TH/MM3 Mean Platelet Volume 8.7 FL Neutrophils (%) (Auto) 77.5 % Lymphocytes (%) (Auto) 8.5 % Monocytes (%) (Auto) 12.1 % Eosinophils (%) (Auto) 1.6 % Basophils (%) (Auto) 0.3 % Neutrophils # (Auto) 4.6 TH/MM3 Lymphocytes # (Auto) 0.5 TH/MM3 Monocytes # (Auto) 0.7 TH/MM3 Eosinophils # (Auto) 0.1 TH/MM3 Basophils # (Auto) 0.0 TH/MM3 CBC Comment DIFF FINAL Differential Comment Sodium Level 136 MEQ/L Potassium Level 3.4 MEQ/L Chloride Level 93 MEQ/L Carbon Dioxide Level 31.0 MEQ/L Anion Gap 12 MEQ/L Blood Urea Nitrogen 43 MG/DL Creatinine 7.50 MG/DL Estimat Glomerular Filtration 6 ML/MIN Rate Random Glucose 99 MG/DL Calcium Level 7.6 MG/DL Phosphorus Level 5.5 MG/DL Magnesium Level 2.1 MG/DL Total Bilirubin 0.9 MG/DL Aspartate Amino Transf 139 U/L (AST/SGOT) Alanine Aminotransferase 147 U/L (ALT/SGPT) Alkaline Phosphatase 64 U/L Total Creatine Kinase 1692 U/L Creatine Kinase MB 4.7 NG/ML Creatine Kinase MB % 0.3 % Total Protein 4.3 GM/DL Albumin 2.0 GM/DL Assessment and Plan Problem List: (1) Drug overdose (2) Hypocalcemia (3) SIRS (systemic inflammatory response syndrome) (4) Renal failure (5) Hyperkalemia (6) Lactic acidosis (7) Altered mental status (8) Severe sepsis (9) Elevated troponin (10) Severe metabolic acidosis (11) Acute kidney failure (12) Leukocytosis (13) Hip hematoma, right (14) Small right middle lobe consolidation (15) Rhabdomyolysis (16) Compartment syndrome of right lower extremity Assessment and Plan 1.) Elevated troponin - suspect d/t global hypoperfusion d/t hypotension form sepsis, ef=65%, patient is assymptomatic, trop < 1 2.) POD 4 - hemodynamically stable 3.) ARF - d/t rhabdomyolysis from compartment syndrome, will need dialysis per dr Fletcher d/t no improvement in renal function Problem Qualifiers (1) Drug overdose: Qualified Code: T50.904A - Drug overdose, undetermined intent, initial encounter (2) Acute kidney failure: Qualified Code: N17.9 - Acute renal failure, unspecified acute renal failure type (3) Leukocytosis: Qualified Code: D72.829 - Leukocytosis, unspecified type Luis Eduardo Carter MD Jul 31, 2016 10:33
[2016-07-31] MEDS: hydrALAZINE HCL 20 MG/ML VIAL IV PUSH PRN ×2 (10:42→16:50)
--- NOTE | 2016-07-31 11:12 | HHI.NPPN ---
Subjective History of Present Illness 30 year old female with drug OD, Rt thigh compartment syndrome s/p Fasciotomy, Rhabdomyolysis, ARF Additional Remarks Patient is alert, seen after HD, tolerated well. Review of Systems General Constitutional: Fatigue Musculoskeletal MS: Pain/Stiffness Objective Data Data 07/30/16 07/31/16 19:00 07:00 Intake Total 1188 ml 2778 ml Output Total 1253 ml 2152 ml Balance -65 ml 626 ml Intake Oral 300 ml 1000 ml IV Total 888 ml 1778 ml Output Urine Total 450 ml 800 ml Stool Total 3 ml 2 ml Drainage Total 800 ml 1350 ml Vital Signs Date Time Temp Pulse Resp B/P Pulse Ox O2 Delivery O2 Flow Rate FiO2 07/31/16 10:00 105 07/31/16 09:43 100 21 07/31/16 08:00 98.0 127 18 145/100 100 07/31/16 08:00 127 07/31/16 07:00 96 Room Air 07/31/16 06:00 102 07/31/16 04:00 98.3 104 20 155/109 95 07/31/16 04:00 104 07/31/16 02:00 105 07/31/16 00:00 98.2 103 16 153/100 93 07/31/16 00:00 103 07/30/16 22:00 102 07/30/16 20:50 96 21 07/30/16 20:00 98.1 100 20 147/99 93 07/30/16 20:00 93 Room Air 07/30/16 20:00 100 07/30/16 18:00 103 07/30/16 16:00 86 07/30/16 16:00 98.0 83 16 153/100 95 07/30/16 12:00 100 07/30/16 12:00 98.0 103 26 133/79 93 -: 07/31/16 0339 07/31/16 0339 Physical Exam General Appearance: No Acute Distress, Comfortable Neck Neck Exam: Neck Supple Pulmonary Resp Exam: Clear Bilaterally, Breath Sounds Equal Cardiology CV Exam: Regular, Normal Sinus Rhythm Gastrointestinal/Abdomen GI Exam: Soft, Non-Tender, Bowel Sounds Present Extremeties Extremities Exam: Trace Edema Neurologic Neuro Exam: Alert, Awake Assessment/Plan Problem List: (1) Acute kidney failure Plan: This is likely due to rhabdomyolysis and acute tubular necrosis Non oliguric UOP 1.6 L Cr higher 7.1 D/W Dr. Barron that she is not improving and will need dialysis by tomorrow Vascath in by 07/31 and HD Planned on bicarb drip IVF sterile water with 100 meq NaHO3/KCL 20 meq on Vancomycin to q 48 hrs as Random Vancomycin level still elevated. HD done, BP is stable. Urine out put is good. on 24 hr. urine collection. Follow urine out put and BMP. HD as needed. (2) Compartment syndrome of right lower extremity Plan: Status post surgery (3) SIRS (systemic inflammatory response syndrome) Plan: Continue with broad-spectrum antibiotics (4) UTI (urinary tract infection) Plan: On Zosyn (5) Severe sepsis Plan: Status post fasciotomy right leg (6) Small right middle lobe consolidation Plan: On antibiotics Problem Qualifiers (1) Acute kidney failure: Qualified Code: N17.9 - Acute renal failure, unspecified acute renal failure type Last Romero MD Jul 31, 2016 11:12
--- NOTE | 2016-07-31 12:51 | HHI.CCPN ---
Subjective Remarks/Hospital Course Patient is a 30-year-old female who was brought to the emergency department by the police for medical clearance. Apparently patient was found in bed with her boyfriend this morning who overdosed on drugs. Patient's boyfriend was was found on the bed. In the ER patient reported numbness to the right side of the body and she admits to snorting some cocaine last night. Patient does not recall any of the events overnight or how she got to the hospital. Her drug screen was essentially negative but she admits to cocaine and heroine use. Patient is a very poor historian. EKG shows probable ST elevation V1 and V2 questionable Brugada syndrome. Initially was hypotensive but responded well to IV fluids. Received total 3 L of fluids but remained tachycardic. There were multiple lab abnormalities. Her CBC showed WBC 18.7 with 92% neutrophils. Her chemistry showed potassium of 6.2, BUN of 17 creatinine 2.97, bicarbonate was only 11.2 with an anion gap of 22. Liver enzymes are markedly elevated AST was 6641 ALT was 1419. Patient was hypocalcemic with 6.6 calcium. Lactate came back very elevated at 9.1. Tylenol level was negative. I believe transaminitis is from shocked liver from hypotension-patient denies hepatitis C. CT of the head was negative I evaluated the patient in the ED. She looks critically ill but did not appear to be in distress at this time. Patient denies chest pain. Her troponin came back at 6.24, CPK pending. 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 Carter turkish rubber.. CK is highly elevated indicating rhabdomyolysis. Dr. Carter does not think this meets criteria for STEMI as the patient is asymptomatic. I did a bedside echo which showed normal ejection fraction no vegetation on the valve on my evaluation. Patient's right thigh is swollen and tense with severe tenderness, distal pulses are palpable but she appears to have compartment syndrome of right thigh. I spoke with Dr. Turner who will evaluate the patient stat for fasciotomy. Continue IV hydration with bicarb infusion 07/26: Afebrile. Complaining of "tingling" in hands. Complains of being dehydrated. Complains of pain in her right thigh. Resting in bed and appears to be in no acute distress. 07/27: Afebrile. Mentation much improved this AM. 350 cc urine output past 12 hours. History status post wound VAC placement to the right thigh. Transfuse 2 units PRBCs and 2 pack platelets overnight. A.m. labs all pending. Hemodynamically stable. 07/28: Afebrile. Patient complaining of menstrual cycle bleeding. Increasing urine output overnight. Wound VAC with 1575 output. Hemoglobin stable. Currently getting potassium replacement. 07/29: Afebrile. Tolerating oral intake. 2 bowel movements overnight. Mother concerned confusion persists. EEG/MRI brain ordered for completeness. 07/30: Afebrile. Tolerating diet. 4 bowel movements past 24 hours. Notified of of boyfriend yesterday. Osborn act has been lifted. Currently on 2 L nasal cannula. Pain controlled with oral oxycodone. Subjective 07/31: Afebrile. Tolerating diet. + BM. Hemodialysis today -1 L. Some oozing from wound VAC. Vascular surgery aware. Objective Vital Signs Date Time Temp Pulse Resp B/P Pulse Ox O2 Delivery O2 Flow Rate FiO2 07/31/16 12:00 98.3 115 15 143/46 94 07/31/16 09:43 21 07/31/16 07:00 Room Air 07/30/16 08:27 2.00 Intake and Output 07/30/16 07/30/16 07/31/16 08:00 16:00 00:00 Intake Total 1381 ml 1188 ml 1456 ml Output Total 1382 ml 1253 ml 950 ml Balance -1 ml -65 ml 506 ml Result Diagram: 07/31/16 0339 07/31/16 0339 Imaging Last Impressions Brain MRI 07/29/16 0000 Signed Impressions: Service Date/Time: July 13:34 - CONCLUSION: 1. Abnormal examination of the brain demonstrating areas of T2 signal and abnormal diffusion signal involving the globus pallidus bilaterally and the mesial temporal lobes bilaterally. Primary considerations would include carbon monoxide poisoning versus other partial anoxic brain injury. Please see above discussion. Aamir Narayanan MD Chest X-Ray 07/27/16 0000 Signed Impressions: Service Date/Time: Wednesday, July 27, 2016 04:29 - CONCLUSION: Possible interval development of mild interstitial process possibly pulmonary edema and slight left lung base atelectasis. Kathy Berry MD Abdomen Ultrasound 07/26/16 Signed Impressions: Service Date/Time: Tuesday, July 26, 2016 10:21 - CONCLUSION: 1. Small amount of free fluid adjacent to the lower poles of both kidneys. 2. Obscuration of the head of the pancreas, distal IVC and aorta due to overlying bowel gas. 3. Otherwise negative. Judson Cee MD Lower Extremity CT 07/25/16 Signed Impressions: Service Date/Time: Monday, July 25, 2016 18:54 - CONCLUSION: Extensive nonspecific myositis of the right thigh, also involves gluteus medius and minimus proximally and at least medial gastrocnemius below the knee. Infectious/inflammatory and ischemic etiologies would be in the differential. No gas bubbles are seen to substantiate necrotizing fasciitis. No organized/drainable abscess. Glenroy Sheffield MD Hip and Pelvis X-Ray 07/25/16 Signed Impressions: Service Date/Time: Monday, July 25, 2016 16:52 - CONCLUSION: Intact pelvis and right hip. Nonspecific surrounding soft tissue swelling Glenroy Sheffield MD Head CT 07/25/16 0000 Signed Impressions: Service Date/Time: Monday, July 25, 2016 14:38 - CONCLUSION: Negative noncontrast head CT. Glenroy Sheffield MD Chest CT 07/25/16 0000 Signed Impressions: Service Date/Time: Monday, July 25, 2016 16:37 - CONCLUSION: Focal dense consolidation right middle lobe, nonspecific but most likely infectious or inflammatory. Also a 3 mm right basilar pulmonary nodule Followup noncontrast chest CT in a few months recommended to confirm resolution/stability. Glenroy Sheffield MD Abdomen/Pelvis CT 07/25/16 0000 Signed Impressions: Service Date/Time: Monday, July 25, 2016 16:37 - CONCLUSION: 1. Fatty liver and 21 mm right ovarian cyst. Otherwise, no acute abnormality seen within the abdomen or pelvis. 2. Swollen, heterogeneous right hip musculature, primarily gluteus medius and minimus, rectus femoris and vastus lateralis and the adductor muscles. This is nonspecific but suggests a subacute hematoma of these structures. Nothing organized/measurable. 3. Chronic L5 pars defects with grade 2 L5/S1 spondylolisthesis. Glenroy Sheffield MD Objective Remarks GENERAL: 30-year-old female. Critically ill currently resting in bed in no acute distress on nasal cannula SKIN: Warm and dry. No rash. HEAD: Atraumatic. Normocephalic. EYES: Pupils equal and round about 3 mm bilaterally and reactive. No scleral icterus. No injection or drainage. ENT: No nasal bleeding or discharge. Mucous membranes dry and pink NECK: Trachea midline. No JVD. CARDIOVASCULAR: Tachycardia, RR S1, S2. No S4. Faint systolic 2/6 murmur RESPIRATORY: Few crackles appreciated in bases bilaterally. Breath sounds equal bilaterally. GASTROINTESTINAL: Abdomen soft, non-tender, nondistended. Hepatomegaly. Hypoactive bowel sounds. Abrasions. MUSCULOSKELETAL: Right thigh currently with wound VAC lateral aspect. CHAZ 340 cc serosanguineous drainage. Right hip tender with restricted mobility. Positive peripheral edema right greater than left lower extremity. NEUROLOGICAL: Awake and alert. Motor grossly within normal limits. Normal speech. A/P Assessment and Plan NEURO: Altered mental status Polysubstance abuse with drug overdose including cocaine/heroin Right upper extremity numbness History of THC use EtOH -Watch for alcohol and drug withdrawal, Use PRN Ativan for anxiety and oxycodone /morphine as needed for pain -CT of the head 07/25 revealed no acute intracranial findings -Started on aspirin 325 mg daily for elevated troponin. -Thiamine 100 mg IV daily along with multivitamin and folate daily -MRI brain 07/29 revealed T2 signal abnormality globus pallidus and mesial temporal lobe bilaterally. - EEG pending -Psychiatry to clear for Osborn act 07/29 RESP: Mild Respiratory insufficiency secondary to pneumonia/metabolic acidosis Small consolidation right middle lobe\\ Right basilar pulmonary nodule 3 mm - follow-up CT chest 3 months recommended Ongoing tobaccoism -Nasal cannula oxygen to maintain saturations greater than equal to 92% -Incentive spirometry while awake -CT chest 07/25 revealed right middle lobe infiltrate along with 3 mm right basilar pulmonary nodule. -Chest x-ray 07/26 reveals no significant cardio pulmonary findings -DuoNeb every 2 hours when necessary -See ID section for broad-spectrum antibiotics CV: Elevated troponin Severe lactic acidosis - resolved ST elevation in V1 and V2 - Continue on normal saline at 1 25 cc an hour -Discussed extensively with Dr. Carter, does not meet criteria for STEMI -Continue aspirin 325 mg daily, will not use beta blockers due to cocaine abuse -2d echo revealed EF 60-65%. NRWMA. Lactic acid has cleared Norvasc 2.5 mg daily for hypertension GI: Transaminitis Rhabdomyolysis Hyperammonia -Transaminitis most likely secondary to shock/rhabdo -CT of the abdomen and pelvis shows fatty liver/21 mm right ovarian cyst -Negative hepatitis panel -Tolerating renal diet - Xifaxan 550 twice a day/lactulose 30 3 times a day for elevated ammonia. Recheck in AM 12 was 49. Recheck in a.m. - 4 bm overnight - Noted low ceruloplasmin. 9. Urine copper 24 hours ordered /Renal: Acute kidney failure Acute rhabdomyolysis -Currently on normal saline 125 cc an hour -07/26 renal ultrasound revealed fluid of at poles of bilateral kidneys otherwise negative -Strict intake output. -Urine electrolytes intrinsic renal process/urine eosinophils negative. - Nephrology consult. Still making adequate urine. - Noted decreased C3 of 19/C4 5 [employer] WORK[employer]: Right ovarian cyst Beta hCG 1 ID: Severe sepsis Escherichia coli UTI -Source likely secondary to right thigh compartment syndrome -Continue vancomycin and Zosyn day #7 -Infectious disease consult. Small consolidation in the right middle lobe unlikely to be source of severe sepsis -Rule out infective endocarditis echocardiogram Pertinent cultures 07/25 - blood cultures 2 -no growth 07/25 - urine culture -Escherichia coli HEME: Macrocytic anemia Thrombocytopenia -Monitor CBC, CMP, coags in a.m. - Transfused total 4 units PRBCs, 2 pack platelets, 2 FFP 2 cryo-since admission ENDO: -Sliding-scale insulin if clinically indicated FEN: Replace electrolytes as clinically indicated. Currently on renal diet Msk: Right medial/lateral thigh compartment syndrome L5/S1 spondylolisthesis Status post day [address] Turner - wound VAC placement postop day 3 - 2100 from wound VAC overnight. 50 SS from CHAZ PROPH: -Left lower extremity SCDs. Heparin 5000 units subcutaneous twice a day held in light of decreasing platelet/bleeding LINES: -Utilize peripheral IVs, central line if needed Critical Care: The total critical care time was 35 minutes. Time to perform other separately billable procedures was not included in the critical care time. Wiliam Barron MD Jul 31, 2016 12:51 Wiliam Barron MD Jul 31, 2016 12:51
--- NOTE | 2016-07-31 12:54 | RADRPT ---
EXAM DATE/TIME: 07/30/2016 14:14 [facility] COMPARISON: No previous studies available for comparison. INDICATIONS : Patient with acute renal failure in need of temporary dialysis catheter placement. MEDICAL HISTORY : Polysubstance abuse Rhabdomyolysis Rt thigh compartment syndrome s/p Fasciotomy Systemic inflammatory response syndrome Acute renal failure SURGICAL HISTORY : Fasciotomy Rt thigh ENCOUNTER: Initial ACUITY: 4-6 days PAIN SCORE: FLUORO TIME: 0.3 minutes ACCESS: Right internal jugular vein DEVICE(S): 1.) 14 [place] dual lumen 15 cm Schon catheter PROCEDURE : 1. Ultrasound guided venipuncture. 2. Fluoroscopic guidance. 3. Central line placement. The risks, benefits and alternatives to the procedure were explained and verbal and written consent w as obtained. The site was prepped in sterile fashion. Full sterile technique was used, including ca p, mask, sterile gloves and gown and a large sterile sheet. Hand hygiene and 2% chlorhexidine prep w as utilized per protocol for cutaneous antisepsis with appropriate dry time for site. The skin and subcutaneous tissues were infiltrated with local anesthetic solution. A suitable site a abimael the vein was selected with ultrasound and fluoroscopic guidance. A small incision was made. Th e vein was accessed under direct ultrasound visualization using the micropuncture technique. The damon ropuncture set was exchanged for a 0.035 wire. The tract was dilated. The catheter was advanced int o position under direct fluoroscopic visualization. The catheter was fixed in place with suture and a sterile dressing was applied. The patient tolerated the procedure well and there were no complications. CONCLUSION: Uncomplicated line placement as above. Judson Cee MD on July 31, 2016 at 12:52 Board Certified Radiologist. This report was verified electronically.
--- NOTE | 2016-07-31 16:04 | HHI.GIFU ---
Subjective Remarks patient comfortable in bed, denies nausea, vomiting or abd pain (Matt,Riri SOCIAL MEDIA COORDINATOR) Objective Vitals I&O Vital Signs Date Time Temp Pulse Resp B/P Pulse Ox O2 Delivery O2 Flow Rate FiO2 07/31/16 14:00 123 07/31/16 12:00 98.3 115 15 143/46 94 07/31/16 12:00 115 07/31/16 10:00 105 07/31/16 09:43 100 21 07/31/16 08:00 98.0 127 18 145/100 100 07/31/16 08:00 127 07/31/16 07:00 96 Room Air 07/31/16 06:00 102 07/31/16 04:00 98.3 104 20 155/109 95 07/31/16 04:00 104 07/31/16 02:00 105 07/31/16 00:00 98.2 103 16 153/100 93 07/31/16 00:00 103 07/30/16 22:00 102 07/30/16 20:50 96 21 07/30/16 20:00 98.1 100 20 147/99 93 07/30/16 20:00 93 Room Air 07/30/16 20:00 100 07/30/16 18:00 103 07/30/16 16:00 86 07/30/16 16:00 98.0 83 16 153/100 95 I/O 07/30/16 07/30/16 07/30/16 07/31/16 07/31/16 07/31/16 06:59 14:59 22:59 06:59 14:59 22:59 Intake Total 1381 ml 1188 ml 1456 ml 1322 ml 1884 ml Output Total 1382 ml 1253 ml 950 ml 1202 ml 1503 ml Balance -1 ml -65 ml 506 ml 120 ml 381 ml Intake Oral 600 ml 300 ml 600 ml 400 ml 960 ml IV Total 781 ml 888 ml 856 ml 922 ml 924 ml Output Urine Total 550 ml 450 ml 500 ml 300 ml 225 ml Stool Total 2 ml 3 ml 0 ml 2 ml 3 ml Drainage Total 830 ml 800 ml 450 ml 900 ml 275 ml Hemodialysis 1000 ml Laboratory Laboratory Tests Test 07/31/16 03:39 White Blood Count 5.9 Red Blood Count 2.97 Hemoglobin 9.4 Hematocrit 26.9 Mean Corpuscular Volume 90.6 Mean Corpuscular Hemoglobin 31.7 Mean Corpuscular Hemoglobin 35.0 Concent Red Cell Distribution Width 17.9 Platelet Count 67 Mean Platelet Volume 8.7 Neutrophils (%) (Auto) 77.5 Lymphocytes (%) (Auto) 8.5 Monocytes (%) (Auto) 12.1 Eosinophils (%) (Auto) 1.6 Basophils (%) (Auto) 0.3 Neutrophils # (Auto) 4.6 Lymphocytes # (Auto) 0.5 Monocytes # (Auto) 0.7 Eosinophils # (Auto) 0.1 Basophils # (Auto) 0.0 CBC Comment DIFF FINAL Differential Comment Sodium Level 136 Potassium Level 3.4 Chloride Level 93 Carbon Dioxide Level 31.0 Anion Gap 12 Blood Urea Nitrogen 43 Creatinine 7.50 Estimat Glomerular Filtration 6 Rate Random Glucose 99 Calcium Level 7.6 Phosphorus Level 5.5 Magnesium Level 2.1 Total Bilirubin 0.9 Aspartate Amino Transf 139 (AST/SGOT) Alanine Aminotransferase 147 (ALT/SGPT) Alkaline Phosphatase 64 Total Creatine Kinase 1692 Creatine Kinase MB 4.7 Creatine Kinase MB % 0.3 Total Protein 4.3 Albumin 2.0 Imaging Last Impressions Brain MRI 07/29/16 0000 Signed Impressions: Service Date/Time: July 13:34 - CONCLUSION: 1. Abnormal examination of the brain demonstrating areas of T2 signal and abnormal diffusion signal involving the globus pallidus bilaterally and the mesial temporal lobes bilaterally. Primary considerations would include carbon monoxide poisoning versus other partial anoxic brain injury. Please see above discussion. Aamir Narayanan MD Chest X-Ray 07/27/16 0000 Signed Impressions: Service Date/Time: Wednesday, July 27, 2016 04:29 - CONCLUSION: Possible interval development of mild interstitial process possibly pulmonary edema and slight left lung base atelectasis. Kathy Berry MD Abdomen Ultrasound 07/26/16 0000 Signed Impressions: Service Date/Time: Tuesday, July 26, 2016 10:21 - CONCLUSION: 1. Small amount of free fluid adjacent to the lower poles of both kidneys. 2. Obscuration of the head of the pancreas, distal IVC and aorta due to overlying bowel gas. 3. Otherwise negative. Judosn Cee MD Lower Extremity CT 07/25/16 0000 Signed Impressions: Service Date/Time: Monday, July 25, 2016 18:54 - CONCLUSION: Extensive nonspecific myositis of the right thigh, also involves gluteus medius and minimus proximally and at least medial gastrocnemius below the knee. Infectious/inflammatory and ischemic etiologies would be in the differential. No gas bubbles are seen to substantiate necrotizing fasciitis. No organized/drainable abscess. Glenroy Sheffield MD Hip and Pelvis X-Ray 07/25/16 0000 Signed Impressions: Service Date/Time: Monday, July 25, 2016 16:52 - CONCLUSION: Intact pelvis and right hip. Nonspecific surrounding soft tissue swelling Glenroy Sheffield MD Head CT 07/25/16 0000 Signed Impressions: Service Date/Time: Monday, July 25, 2016 14:38 - CONCLUSION: Negative noncontrast head CT. Glenroy Sheffield MD Chest CT 07/25/16 0000 Signed Impressions: Service Date/Time: Monday, July 25, 2016 16:37 - CONCLUSION: Focal dense consolidation right middle lobe, nonspecific but most likely infectious or inflammatory. Also a 3 mm right basilar pulmonary nodule Followup noncontrast chest CT in a few months recommended to confirm resolution/stability. Glenroy Sheffield MD Abdomen/Pelvis CT 07/25/16 0000 Signed Impressions: Service Date/Time: Monday, July 25, 2016 16:37 - CONCLUSION: 1. Fatty liver and 21 mm right ovarian cyst. Otherwise, no acute abnormality seen within the abdomen or pelvis. 2. Swollen, heterogeneous right hip musculature, primarily gluteus medius and minimus, rectus femoris and vastus lateralis and the adductor muscles. This is nonspecific but suggests a subacute hematoma of these structures. Nothing organized/measurable. 3. Chronic L5 pars defects with grade 2 L5/S1 spondylolisthesis. Glenroy Sheffield MD Physical Exam CHEST: CTA CARDIAC: RRR ABDOMEN: Soft, nondistended, nontender; no hepatosplenomegaly; bowel sounds are present in all four quadrants. EXTREMITIES: No clubbing, cyanosis. Right thigh lateral wound with wound vac d/ i, 2 + edema in the right pedal SKIN: Normal; no rash; no jaundice. MEASUREMENT AND VERIFICATION ENGINEER: No focal deficits; alert and oriented times three. (Riri Gutierrez) Assessment and Plan Plan ASSESSMENT: - Elevated LFTs, possibly combination of shocked liver and rhabdomyolysis. Abdomen Ultrasound (07/26/16)----> 1. Small amount of free fluid adjacent to the lower poles of both kidneys. 2. Obscuration of the head of the pancreas, distal IVC and aorta due to overlying bowel gas. 3. Otherwise negative. Abdomen/Pelvis CT (07/25/16)----> 1. Fatty liver and 21 mm right ovarian cyst. Otherwise, no acute abnormality seen within the abdomen or pelvis. 2. Swollen, heterogeneous right hip musculature, primarily gluteus medius and minimus, rectus femoris and vastus lateralis and the adductor muscles. This is nonspecific but suggests a subacute hematoma of these structures. Nothing organized/measurable. 3. Chronic L5 pars defects with grade 2 L5/S1 spondylolisthesis. Toxicology report---- > Acetaminophen less than 2.0, Salicylates less than 1.7, Ethyl alcohol 28, toxicology screen negative- although the patient reports that she does use pills and smoke marijuana. Hepatitis panel negative. She does have documented episodes of hypotension as well as rhabdomyolysis. JORY negative, ASMA negative, AMA negative, Ferritin 400, Iron saturation 81.4 (post transfusion), Ceruloplasmin 9, ALpha 1 Antitrypsin 95. LFTs improving, T. Bili 1.1, AST 281, ALT 215, Alk Phosph 58. - Low Ceruloplasmin level 9. Brain MRI (07/29/16)----> 1. Abnormal examination of the brain demonstrating areas of T2 signal and abnormal diffusion signal involving the globus pallidus bilaterally and the mesial temporal lobes bilaterally. Primary considerations would include carbon monoxide poisoning versus other partial anoxic brain injury. Please see above discussion. Of note, Branden's disease was also mentioned in the differential. Will get 24 hour urine for copper- although this cannot be sent until Tuesday and it will then be resulted on Tuesday. - Low Alpha 1 Antitrypsin 95. Alpha 1 Antitrypsin Phenotype pending. - AMS, IMPROVED. Ammonia 49, but alert and oriented. Xifaxan, Lactulose. - Rhabdomyolysis. IVF per [facility], CPK > 4,182 - Compartment syndrome, s/p fasciotomy, wound vac placement. - Sepsis, elevated lactic acid, likely t/t right thigh compartment syndrome. - Coagulopathy, ? DIC per [facility] - Anemia, 10.1/29.6. - CARLITO, worsening. Creat 7.03. S/P Vascath, HD to be started tomorrow 07/31/16- had HD today, LFTs trending down, 24 hr urine for copper is pending, Alpha 1 Antitrypsin Phenotype pending. 9.4.9, Plan: - JACY - Await 24 hour urine for copper - Await Alpha 1 Antitrypsin phenotype - Monitor LFTs - Avoid hypotension - Avoid hepatoxins - Consider liver biopsy based on results of above - Supportive care - Further recommendations to follow based on results of above - PT seen and examined by Dr. Monreal and myself and this note is written on his behalf (Riri Gutierrez) Physician Comments Patient seen and examined Agree with above Continue with current supportive care Monitor labs Await lab results (Karri Monreal MD) Riri Gutierrez Jul 31, 2016 16:04 Karri Monreal MD Jul 31, 2016 20:04
[2016-07-31] MEDS ORDERED: cloNIDine HCL 0.1 MG TAB PO PRN (17:45)
[2016-07-31] MEDS ORDERED: HEPARIN SODIUM - IV 10,000 UNITS/10 ML VIAL IV FLUSH PRN (17:45)
[2016-07-31] MEDS ORDERED: NS 250 ML IV PRN (17:45)
[2016-07-31] MEDS ORDERED: ACETAMINOPHEN 325 MG TAB PO PRN (17:45)
[2016-07-31] MEDS ORDERED: NITROGLYCERIN 0.4 MG SL 25 TABS/BTL SL PRN (17:45)
[2016-07-31] MEDS ORDERED: diphenhydrAMINE HCL 25 MG CAP PO PRN (17:45)
[2016-07-31] MEDS ORDERED: SODIUM CHLOR 0.9% 1000 ML IV PRN (17:45)
[2016-07-31] MEDS ORDERED: ONDANSETRON HCL 4 MG/2 ML VIAL IV PRN (17:45)
[2016-07-31] MEDS ORDERED: MANNITOL 12.5 GM/50 ML VIAL IV PRN (17:45)
[2016-07-31] MEDS ORDERED: ALBUMIN HUMAN 25% 25 GM/100 ML BAGP IV PRN (17:45)
[2016-07-31] MEDS ORDERED: GELATIN 12 MM/7 MM FOAM TOP PRN (17:45)
[2016-07-31] MEDS ORDERED: HEPARIN SODIUM - IV 10,000 UNITS/10 ML VIAL OTHER PRN (17:45)
[2016-08-01] VITALS (13 sets, daily range): BP systolic 152–179; BP diastolic 78–112; PULSE 85–136; RESP 13–21; TEMP 98.1–98.5; O2SAT 93–95
[2016-08-01] MEDS: hydrALAZINE HCL 20 MG/ML VIAL IV PUSH PRN ×4 (00:39→09:30)
[2016-08-01] MEDS: SODIUM CHLOR 0.9% 1000 ML INJ 1,000 ML IV SCH ×3 (02:23→16:35)
[2016-08-01] MEDS: MORPHINE SULFATE 4 MG/ML INJ IV PRN ×2 (02:25→09:01)
[2016-08-01] MEDS: CHLORHEXIDINE GLUCONATE 2 % 1 PACK (2 CLOTHS) TOP SCH (04:00)
[2016-08-01] MEDS: LORazepam 2 MG/ML VIAL IV PUSH PRN (04:12)
[2016-08-01 04:41] LABS: AUTOMATED NEUTROPHIL # 4.3 TH/MM3 (1.8-7.7); BASOPHIL % 0.3 % (0.0-2.0); EOSINOPHIL # 0.1 TH/MM3 (0-0.4); EOSINOPHIL % 2.2 % (0.0-4.0); HEMATOCRIT 29.1 % (35.0-46.0); HEMO FLAGS AUTO DIFF; LYMPH % 13.6 % (9.0-44.0); LYMPHOCYTE # 0.9 TH/MM3 (1.0-4.8); MEAN CELL VOLUME 95.7 FL (80.0-100.0); MEAN CORPUSCULAR HEMOGLOBIN 31.9 PG (27.0-34.0); MEAN CORPUSCULAR HGB CONC 33.3 % (32.0-36.0); NEUT % 67.9 % (16.0-70.0); PLATELET COUNT 62 TH/MM3 (150-450); RED BLOOD COUNT 3.04 MIL/MM3 (4.00-5.30); RED CELL DISTRIBUTION WIDTH 18.9 % (11.6-17.2); WHITE BLOOD COUNT 6.3 TH/MM3 (4.0-11.0)
[2016-08-01 04:53] LABS: INDIRECT BILIRUBIN 0.5 MG/DL (0.0-0.8); MAGNESIUM 1.7 MG/DL (1.5-2.5); TOTAL BILIRUBIN ADULT 0.8 MG/DL (0.2-1.0)
[2016-08-01 05:53] LABS: PLATELET ESTIMATE SMEAR LOW (NORMAL); PLATELET MORPHOLOGY NORMAL (NORMAL); SCAN/DIFF AUTO DIFF CONFIRMED
[2016-08-01] MEDS: SODIUM CHLORIDE 0.9% FLUSH 5 ML FLUSH IV FLUSH SCH ×2 (07:22→20:22)
[2016-08-01] MEDS: FAMOTIDINE 20 MG TAB PO SCH ×2 (07:57→20:22)
[2016-08-01] MEDS: LACTULOSE SYRUP 20 GM/30 ML CUP PO SCH ×2 (07:57→20:22)
[2016-08-01] MEDS: RIFAXIMIN 550 MG TAB PO SCH ×2 (07:57→20:22)
[2016-08-01] MEDS: THIAMINE INJ 100 MG in SODIUM CHLORIDE 0.9% INJ 100 ML IV SCH (07:58)
[2016-08-01] MEDS: ASPIRIN EC 325 MG TABEC PO SCH (07:58)
[2016-08-01] MEDS: amLODIPine BESYLATE 5 MG TAB PO SCH ×2 (07:58→12:22)
[2016-08-01] MEDS: MULTIVITAMIN TAB PO SCH (07:58)
[2016-08-01] MEDS: FOLIC ACID 1 MG TAB PO SCH (07:58)
[2016-08-01] MEDS ORDERED: MAGNESIUM SULFATE 1 GM PREMIX 100 ML IV ONE (08:15)
--- NOTE | 2016-08-01 09:01 | HHI.CCPN ---
Subjective Remarks/Hospital Course Patient is a 30-year-old female who was brought to the emergency department by the police for medical clearance. Apparently patient was found in bed with her boyfriend this morning who overdosed on drugs. Patient's boyfriend was was found on the bed. In the ER patient reported numbness to the right side of the body and she admits to snorting some cocaine last night. Patient does not recall any of the events overnight or how she got to the hospital. Her drug screen was essentially negative but she admits to cocaine and heroine use. Patient is a very poor historian. EKG shows probable ST elevation V1 and V2 questionable Brugada syndrome. Initially was hypotensive but responded well to IV fluids. Received total 3 L of fluids but remained tachycardic. There were multiple lab abnormalities. Her CBC showed WBC 18.7 with 92% neutrophils. Her chemistry showed potassium of 6.2, BUN of 17 creatinine 2.97, bicarbonate was only 11.2 with an anion gap of 22. Liver enzymes are markedly elevated AST was 6641 ALT was 1419. Patient was hypocalcemic with 6.6 calcium. Lactate came back very elevated at 9.1. Tylenol level was negative. I believe transaminitis is from shocked liver from hypotension-patient denies hepatitis C. CT of the head was negative I evaluated the patient in the ED. She looks critically ill but did not appear to be in distress at this time. Patient denies chest pain. Her troponin came back at 6.24, CPK pending. 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 Carter pulling machine operator.. CK is highly elevated indicating rhabdomyolysis. Dr. Carter does not think this meets criteria for STEMI as the patient is asymptomatic. I did a bedside echo which showed normal ejection fraction no vegetation on the valve on my evaluation. Patient's right thigh is swollen and tense with severe tenderness, distal pulses are palpable but she appears to have compartment syndrome of right thigh. I spoke with Dr. Turner who will evaluate the patient stat for fasciotomy. Continue IV hydration with bicarb infusion 07/26: Afebrile. Complaining of "tingling" in hands. Complains of being dehydrated. Complains of pain in her right thigh. Resting in bed and appears to be in no acute distress. 07/27: Afebrile. Mentation much improved this AM. 350 cc urine output past 12 hours. History status post wound VAC placement to the right thigh. Transfuse 2 units PRBCs and 2 pack platelets overnight. A.m. labs all pending. Hemodynamically stable. 07/28: Afebrile. Patient complaining of menstrual cycle bleeding. Increasing urine output overnight. Wound VAC with 1575 output. Hemoglobin stable. Currently getting potassium replacement. 07/29: Afebrile. Tolerating oral intake. 2 bowel movements overnight. Mother concerned confusion persists. EEG/MRI brain ordered for completeness. 07/30: Afebrile. Tolerating diet. 4 bowel movements past 24 hours. Notified of of boyfriend yesterday. Osborn act has been lifted. Currently on 2 L nasal cannula. Pain controlled with oral oxycodone. 07/31: Afebrile. Tolerating diet. + BM. Hemodialysis today -1 L. Some oozing from wound VAC. Vascular surgery aware. Subjective 08/01: Afebrile. Tolerating diet. Positive BM. He was thus planned for tomorrow. No more oozing from wound VAC. Received 1 mg of Ativan last night and somewhat confuse currently. Ativan removed from OCT. Objective Vital Signs Date Time Temp Pulse Resp B/P Pulse Ox O2 Delivery O2 Flow Rate FiO2 08/01/16 08:00 98.3 98 19 153/103 94 08/01/16 07:00 Room Air 07/31/16 09:43 21 07/30/16 08:27 2.00 Intake and Output 07/31/16 07/31/16 08/01/16 08:00 16:00 00:00 Intake Total 1322 ml 1884 ml 1505 ml Output Total 1202 ml 1503 ml 901 ml Balance 120 ml 381 ml 604 ml Result Diagram: 08/01/16 0426 07/31/16 0339 Imaging Last Impressions Catheter Placement X-Ray 07/30/16 0000 Signed Impressions: Service Date/Time: Saturday, July 30, 2016 14:14 - CONCLUSION: Uncomplicated line placement as above. Judson Cee MD Brain MRI 07/29/16 0000 Signed Impressions: Service Date/Time: July 13:34 - CONCLUSION: 1. Abnormal examination of the brain demonstrating areas of T2 signal and abnormal diffusion signal involving the globus pallidus bilaterally and the mesial temporal lobes bilaterally. Primary considerations would include carbon monoxide poisoning versus other partial anoxic brain injury. Please see above discussion. Aamir Narayanan MD Chest X-Ray 07/27/16 0000 Signed Impressions: Service Date/Time: Wednesday, July 27, 2016 04:29 - CONCLUSION: Possible interval development of mild interstitial process possibly pulmonary edema and slight left lung base atelectasis. Kathy Berry MD Abdomen Ultrasound 07/26/16 0000 Signed Impressions: Service Date/Time: Tuesday, July 26, 2016 10:21 - CONCLUSION: 1. Small amount of free fluid adjacent to the lower poles of both kidneys. 2. Obscuration of the head of the pancreas, distal IVC and aorta due to overlying bowel gas. 3. Otherwise negative. Judson Cee MD Lower Extremity CT 07/25/16 0000 Signed Impressions: Service Date/Time: Monday, July 25, 2016 18:54 - CONCLUSION: Extensive nonspecific myositis of the right thigh, also involves gluteus medius and minimus proximally and at least medial gastrocnemius below the knee. Infectious/inflammatory and ischemic etiologies would be in the differential. No gas bubbles are seen to substantiate necrotizing fasciitis. No organized/drainable abscess. Glenroy Sheffield MD Hip and Pelvis X-Ray 07/25/16 0000 Signed Impressions: Service Date/Time: Monday, July 25, 2016 16:52 - CONCLUSION: Intact pelvis and right hip. Nonspecific surrounding soft tissue swelling Glenroy Sheffield MD Head CT 07/25/16 0000 Signed Impressions: Service Date/Time: Monday, July 25, 2016 14:38 - CONCLUSION: Negative noncontrast head CT. Glenroy Sheffield MD Chest CT 07/25/16 0000 Signed Impressions: Service Date/Time: Monday, July 25, 2016 16:37 - CONCLUSION: Focal dense consolidation right middle lobe, nonspecific but most likely infectious or inflammatory. Also a 3 mm right basilar pulmonary nodule Followup noncontrast chest CT in a few months recommended to confirm resolution/stability. Glenroy Sheffield MD Abdomen/Pelvis CT 07/25/16 0000 Signed Impressions: Service Date/Time: Monday, July 25, 2016 16:37 - CONCLUSION: 1. Fatty liver and 21 mm right ovarian cyst. Otherwise, no acute abnormality seen within the abdomen or pelvis. 2. Swollen, heterogeneous right hip musculature, primarily gluteus medius and minimus, rectus femoris and vastus lateralis and the adductor muscles. This is nonspecific but suggests a subacute hematoma of these structures. Nothing organized/measurable. 3. Chronic L5 pars defects with grade 2 L5/S1 spondylolisthesis. Glenroy Sheffield MD Objective Remarks GENERAL: 30-year-old female. Critically ill currently resting in bed in no acute distress on nasal cannula SKIN: Warm and dry. No rash. HEAD: Atraumatic. Normocephalic. EYES: Pupils equal and round about 3 mm bilaterally and reactive. No scleral icterus. No injection or drainage. ENT: No nasal bleeding or discharge. Mucous membranes dry and pink NECK: Trachea midline. No JVD. CARDIOVASCULAR: Tachycardia, RR S1, S2. No S4. Faint systolic 2/6 murmur RESPIRATORY: Few crackles appreciated in bases bilaterally. Breath sounds equal bilaterally. GASTROINTESTINAL: Abdomen soft, non-tender, nondistended. Hepatomegaly. Hypoactive bowel sounds. Abrasions. MUSCULOSKELETAL: Right thigh currently with wound VAC lateral aspect. CHAZ has been removed. Right hip tender with restricted mobility. Positive peripheral edema right greater than left lower extremity. NEUROLOGICAL: Awake and alert to person, place and year. Motor grossly within normal limits. Slightly slurred speech. A/P Assessment and Plan NEURO: Altered mental status Polysubstance abuse with drug overdose including cocaine/heroin Right upper extremity numbness History of THC use EtOH -Watch for alcohol and drug withdrawal, Use PRN Ativan for anxiety and oxycodone /morphine as needed for pain -CT of the head 07/25 revealed no acute intracranial findings -Started on aspirin 325 mg daily for elevated troponin. Continue -Thiamine 100 mg IV daily along with multivitamin and folate daily -MRI brain 07/29 revealed T2 signal abnormality globus pallidus and mesial temporal lobe bilaterally. - EEG 07/30 revealed slowing system with moderate diffuse encephalopathy. No seizure activity. -Psychiatry clear to Osborn act 07/29 - Per family request consult neurology for interpretation of MRI findings. RESP: Mild Respiratory insufficiency secondary to pneumonia/metabolic acidosis Small consolidation right middle lobe\\ Right basilar pulmonary nodule 3 mm - follow-up CT chest 3 months recommended Ongoing tobaccoism -Nasal cannula oxygen to maintain saturations greater than equal to 92% -Incentive spirometry while awake -CT chest 07/25 revealed right middle lobe infiltrate along with 3 mm right basilar pulmonary nodule. -Chest x-ray 07/26 reveals no significant cardio pulmonary findings -DuoNeb every 2 hours when necessary -See ID section for broad-spectrum antibiotics CV: Elevated troponin Severe lactic acidosis - resolved ST elevation in V1 and V2 - Continue on normal saline at 125 cc an hour -Discussed extensively with Dr. Carter, does not meet criteria for STEMI -Continue aspirin 325 mg daily, will not use beta blockers due to cocaine abuse -2d echo revealed EF 60-65%. NRWMA. Lactic acid has cleared Norvasc 5 mg daily for hypertension with as needed hydralazine and Nitropaste GI: Transaminitis Rhabdomyolysis Hyperammonia -Transaminitis most likely secondary to shock/rhabdo -CT of the abdomen and pelvis shows fatty liver/21 mm right ovarian cyst -Negative hepatitis panel -Tolerating renal diet - Xifaxan 550 twice a day/lactulose 30 3 times a day for elevated ammonia. Recheck in AM 07/30 was 49. Recheck in a.m 08/01 was 46. - + bm overnight - Noted low ceruloplasmin. 9. Urine copper 24 hours ordered /Renal: Acute kidney failure Acute rhabdomyolysis -Currently on normal saline 125 cc an hour -07/26 renal ultrasound revealed fluid of at poles of bilateral kidneys otherwise negative -Strict intake output. -Urine electrolytes intrinsic renal process/urine eosinophils negative. - Nephrology consult. Still making adequate urine. - Noted decreased C3 of 19/C4 5 - -1 L hemodialysis 07/31. Plan to repeat on Tuesday MINI BACCARAT DEALER: Right ovarian cyst Beta hCG 1 ID: Severe sepsis Escherichia coli UTI -Source likely secondary to right thigh compartment syndrome -Previously on vancomycin and Zosyn day #6 - currently on Levaquin 500 milligrams every 48 day #3 -Infectious disease consult. Small consolidation in the right middle lobe unlikely to be source of severe sepsis Pertinent cultures 07/25 - blood cultures 2 -no growth 07/25 - urine culture -Escherichia coli HEME: Macrocytic anemia Thrombocytopenia -Monitor CBC, CMP, coags in a.m. - Transfused total 4 units PRBCs, 2 pack platelets, 2 FFP 2 cryo-since admission ENDO: -Sliding-scale insulin if clinically indicated FEN: Replace electrolytes as clinically indicated. Currently on renal diet Msk: Right medial/lateral thigh compartment syndrome L5/S1 spondylolisthesis Status post day [address] Turner - wound VAC placement postop day 4 - 1370 from wound VAC overnight. CHAZ has been removed PROPH: -Left lower extremity SCDs. Heparin 5000 units subcutaneous twice a day held in light of decreasing platelet/bleeding LINES: -Utilize peripheral IVs, central line if needed Critical Care: The total care time was 35 minutes. Time to perform other separately billable procedures was not included in the critical care time. Patient is stable from a cardiac standpoint. We will assign care to hospitalist in a.m. 08/02 Wiliam Barron MD Aug 01, 2016 09:01
--- NOTE | 2016-08-01 09:21 | PD.CARD.PN ---
Subjective Subjective Remarks alert in nad, denies cp, sob Objective Vital Signs / I&O Vital Signs Date Time Temp Pulse Resp B/P Pulse Ox O2 Delivery O2 Flow Rate FiO2 08/01/16 09:11 94 21 08/01/16 08:00 98.3 98 19 153/103 94 08/01/16 08:00 98 08/01/16 07:00 94 Room Air 08/01/16 06:00 106 08/01/16 04:00 104 08/01/16 04:00 98.2 96 18 175/112 94 08/01/16 02:33 20 08/01/16 02:00 110 08/01/16 00:00 98.2 104 14 155/98 94 08/01/16 00:00 111 07/31/16 22:00 107 07/31/16 20:28 95 07/31/16 20:00 107 07/31/16 20:00 98.2 109 12 154/103 95 07/31/16 19:00 94 Room Air 07/31/16 18:00 102 07/31/16 16:00 107 07/31/16 16:00 98.1 107 13 162/102 97 07/31/16 14:00 123 07/31/16 12:00 98.3 115 15 143/46 94 07/31/16 12:00 115 07/31/16 10:00 105 07/31/16 09:43 100 21 I/O 07/31/16 07/31/16 07/31/16 08/01/16 08/01/16 08/01/16 06:59 14:59 22:59 06:59 14:59 22:59 Intake Total 1322 ml 1884 ml 1505 ml 1813 ml Output Total 1202 ml 1503 ml 901 ml 1101 ml Balance 120 ml 381 ml 604 ml 712 ml Intake Oral 400 ml 960 ml 480 ml 960 ml IV Total 922 ml 924 ml 1025 ml 853 ml Output Urine Total 300 ml 225 ml 400 ml 500 ml Stool Total 2 ml 3 ml 1 ml 1 ml Drainage Total 900 ml 275 ml 500 ml 600 ml Hemodialysis 1000 ml Physical Exam GENERAL: SKIN: Warm and dry. HEAD: Normocephalic. EYES: No scleral icterus. No injection or drainage. NECK: Supple, trachea midline. No JVD or lymphadenopathy. CARDIOVASCULAR: Regular rate and rhythm without murmurs, gallops, or rubs. RESPIRATORY: Breath sounds equal bilaterally. No accessory muscle use. GASTROINTESTINAL: Abdomen soft, non-tender, nondistended. MUSCULOSKELETAL: No cyanosis, or edema. BACK: Nontender without obvious deformity. No CVA tenderness. Laboratory Laboratory Tests Test 08/01/16 04:26 White Blood Count 6.3 TH/MM3 Red Blood Count 3.04 MIL/MM3 Hemoglobin 9.7 GM/DL Hematocrit 29.1 % Mean Corpuscular Volume 95.7 FL Mean Corpuscular Hemoglobin 31.9 PG Mean Corpuscular Hemoglobin 33.3 % Concent Red Cell Distribution Width 18.9 % Platelet Count 62 TH/MM3 Mean Platelet Volume 8.4 FL Neutrophils (%) (Auto) 67.9 % Lymphocytes (%) (Auto) 13.6 % Monocytes (%) (Auto) 16.0 % Eosinophils (%) (Auto) 2.2 % Basophils (%) (Auto) 0.3 % Neutrophils # (Auto) 4.3 TH/MM3 Lymphocytes # (Auto) 0.9 TH/MM3 Monocytes # (Auto) 1.0 TH/MM3 Eosinophils # (Auto) 0.1 TH/MM3 Basophils # (Auto) 0.0 TH/MM3 CBC Comment AUTO DIFF Differential Comment AUTO DIFF CONFIRMED Platelet Estimate LOW Platelet Morphology Comment NORMAL Hematology Comments Phosphorus Level 3.5 MG/DL Magnesium Level 1.7 MG/DL Total Bilirubin 0.8 MG/DL Direct Bilirubin 0.3 MG/DL Indirect Bilirubin 0.5 MG/DL Aspartate Amino Transf 80 U/L (AST/SGOT) Alanine Aminotransferase 107 U/L (ALT/SGPT) Alkaline Phosphatase 62 U/L Ammonia 46 MCMOL/L Total Protein 4.2 GM/DL Albumin 1.8 GM/DL Assessment and Plan Problem List: (1) Drug overdose (2) Hypocalcemia (3) SIRS (systemic inflammatory response syndrome) (4) Renal failure (5) Hyperkalemia (6) Lactic acidosis (7) Altered mental status (8) Severe sepsis (9) Elevated troponin (10) Severe metabolic acidosis (11) Acute kidney failure (12) Leukocytosis (13) Hip hematoma, right (14) Small right middle lobe consolidation (15) Rhabdomyolysis (16) Compartment syndrome of right lower extremity Assessment and Plan 1.) Elevated troponin - suspect d/t global hypoperfusion d/t hypotension form sepsis, ef=65%, patient is assymptomatic, trop < 1 2.) POD 4 - hemodynamically stable 3.) ARF - d/t rhabdomyolysis from compartment syndrome, will need dialysis per dr Fletcher d/t no improvement in renal function Problem Qualifiers (1) Drug overdose: Qualified Code: T50.904A - Drug overdose, undetermined intent, initial encounter (2) Acute kidney failure: Qualified Code: N17.9 - Acute renal failure, unspecified acute renal failure type (3) Leukocytosis: Qualified Code: D72.829 - Leukocytosis, unspecified type Luis Eduardo Carter MD Aug 01, 2016 09:21
[2016-08-01 10:50] LABS: BICARBONATE 28.5 MEQ/L (21.0-32.0); POTASSIUM 3.2 MEQ/L (3.5-5.1)
[2016-08-01] MEDS: LABETALOL HCL 100 MG/20 ML VIAL IV PRN ×2 (12:52→18:01)
--- NOTE | 2016-08-01 13:12 | HHI.NPPN ---
Subjective History of Present Illness 30 year old female with drug OD, Rt thigh compartment syndrome s/p Fasciotomy, Rhabdomyolysis, ARF Additional Remarks Patient is alert, has pain in the Rt. leg. Review of Systems General Constitutional: Fatigue Musculoskeletal MS: Pain/Stiffness Objective Data Data 07/31/16 08/01/16 19:00 07:00 Intake Total 1884 ml 3318 ml Output Total 1503 ml 2002 ml Balance 381 ml 1316 ml Intake Oral 960 ml 1440 ml IV Total 924 ml 1878 ml Output Urine Total 225 ml 900 ml Stool Total 3 ml 2 ml Drainage Total 275 ml 1100 ml Hemodialysis 1000 ml Vital Signs Date Time Temp Pulse Resp B/P Pulse Ox O2 Delivery O2 Flow Rate FiO2 08/01/16 12:00 124 08/01/16 12:00 98.2 124 21 179/82 93 08/01/16 10:00 136 08/01/16 09:11 94 21 08/01/16 08:00 98.3 98 19 153/103 94 08/01/16 08:00 98 08/01/16 07:00 94 Room Air 08/01/16 06:00 106 08/01/16 04:00 104 08/01/16 04:00 98.2 96 18 175/112 94 08/01/16 02:33 20 08/01/16 02:00 110 08/01/16 00:00 98.2 104 14 155/98 94 08/01/16 00:00 111 07/31/16 22:00 107 07/31/16 20:28 95 07/31/16 20:00 107 07/31/16 20:00 98.2 109 12 154/103 95 07/31/16 19:00 94 Room Air 07/31/16 18:00 102 07/31/16 16:00 107 07/31/16 16:00 98.1 107 13 162/102 97 07/31/16 14:00 123 -: 08/01/16 0426 08/01/16 0945 Physical Exam General Appearance: No Acute Distress, Comfortable Neck Neck Exam: Neck Supple Pulmonary Resp Exam: Clear Bilaterally, Breath Sounds Equal Cardiology CV Exam: Regular, Normal Sinus Rhythm Gastrointestinal/Abdomen GI Exam: Soft, Non-Tender, Bowel Sounds Present Extremeties Extremities Exam: Trace Edema Neurologic Neuro Exam: Alert, Awake Assessment/Plan Problem List: (1) Acute kidney failure Plan: This is likely due to rhabdomyolysis and acute tubular necrosis Non oliguric UOP 1.6 L Cr higher 7.1 D/W Dr. Barron that she is not improving and will need dialysis by tomorrow Vascath in by 07/31 and HD Planned on bicarb drip IVF sterile water with 100 meq NaHO3/KCL 20 meq on Vancomycin to q 48 hrs as Random Vancomycin level still elevated. HD done, BP is stable. Urine out put is good. on 24 hr. urine collection. Follow urine out put and BMP. Still have elevated BUN and Creatinine and will need HD in AM. Dr. Fletcher will follow in AM. (2) Compartment syndrome of right lower extremity Plan: Status post surgery (3) SIRS (systemic inflammatory response syndrome) Plan: Continue with broad-spectrum antibiotics (4) UTI (urinary tract infection) Plan: On Zosyn (5) Severe sepsis Plan: Status post fasciotomy right leg (6) Small right middle lobe consolidation Plan: On antibiotics Problem Qualifiers (1) Acute kidney failure: Qualified Code: N17.9 - Acute renal failure, unspecified acute renal failure type Last Romero MD Aug 01, 2016 13:12
[2016-08-01] MEDS ORDERED: POTASSIUM CHLORIDE 20 MEQ CONTROLLED RELEASE TAB PO ONE (16:00)
[2016-08-01] MEDS: LEVOFLOXACIN 500 MG TAB PO SCH (21:59)
[2016-08-02] VITALS (14 sets, daily range): BP systolic 139–180; BP diastolic 73–102; PULSE 89–112; RESP 14–22; TEMP 97.4–98.6; O2SAT 93–97
[2016-08-02] MEDS: SODIUM CHLOR 0.9% 1000 ML INJ 1,000 ML IV SCH ×2 (01:28→18:55)
[2016-08-02] MEDS: LABETALOL HCL 100 MG/20 ML VIAL IV PRN ×2 (03:55→10:00)
[2016-08-02] MEDS: CHLORHEXIDINE GLUCONATE 2 % 1 PACK (2 CLOTHS) TOP SCH (04:00)
[2016-08-02 05:12] LABS: AUTOMATED NEUTROPHIL # 6.2 TH/MM3 (1.8-7.7); BASOPHIL % 0.6 % (0.0-2.0); EOSINOPHIL # 0.1 TH/MM3 (0-0.4); EOSINOPHIL % 1.4 % (0.0-4.0); HEMATOCRIT 25.5 % (35.0-46.0); LYMPH % 9.3 % (9.0-44.0); LYMPHOCYTE # 0.7 TH/MM3 (1.0-4.8); MEAN CELL VOLUME 92.2 FL (80.0-100.0); MEAN CORPUSCULAR HEMOGLOBIN 31.9 PG (27.0-34.0); MEAN CORPUSCULAR HGB CONC 34.6 % (32.0-36.0); NEUT % 78.7 % (16.0-70.0); PLATELET COUNT 76 TH/MM3 (150-450); RED BLOOD COUNT 2.77 MIL/MM3 (4.00-5.30); RED CELL DISTRIBUTION WIDTH 18.7 % (11.6-17.2); WHITE BLOOD COUNT 7.9 TH/MM3 (4.0-11.0)
[2016-08-02 05:15] LABS: HEMO FLAGS AUTO DIFF
[2016-08-02 05:21] LABS: APTT (PATIENT) 26.6 SEC (24.3-30.1); PROTHROMBIN TIME - PATIENT 11.3 SEC (9.8-11.6)
[2016-08-02 05:37] LABS: BICARBONATE 26.7 MEQ/L (21.0-32.0); CALCIUM-PROTEIN CORRECTED 9.2 MG/DL (8.5-10.1); MAGNESIUM 1.9 MG/DL (1.5-2.5); POTASSIUM 3.8 MEQ/L (3.5-5.1); TOTAL BILIRUBIN ADULT 0.9 MG/DL (0.2-1.0)
[2016-08-02 06:57] LABS: PLATELET ESTIMATE SMEAR LOW (NORMAL); PLATELET MORPHOLOGY NORMAL (NORMAL); SCAN/DIFF AUTO DIFF CONFIRMED
[2016-08-02] MEDS: FAMOTIDINE 20 MG TAB PO SCH ×2 (08:56→20:31)
[2016-08-02] MEDS: amLODIPine BESYLATE 5 MG TAB PO SCH (08:56)
[2016-08-02] MEDS: MULTIVITAMIN TAB PO SCH (08:56)
[2016-08-02] MEDS: THIAMINE INJ 100 MG in SODIUM CHLORIDE 0.9% INJ 100 ML IV SCH (08:56)
[2016-08-02] MEDS: RIFAXIMIN 550 MG TAB PO SCH ×2 (08:56→20:31)
[2016-08-02] MEDS: MORPHINE SULFATE 4 MG/ML INJ IV PRN ×3 (08:56→20:33)
[2016-08-02] MEDS: LACTULOSE SYRUP 20 GM/30 ML CUP PO SCH ×2 (08:57→20:30)
[2016-08-02] MEDS: ASPIRIN EC 325 MG TABEC PO SCH (08:57)
[2016-08-02] MEDS: FOLIC ACID 1 MG TAB PO SCH (08:57)
[2016-08-02] MEDS: SODIUM CHLORIDE 0.9% FLUSH 5 ML FLUSH IV FLUSH SCH ×2 (08:57→20:31)
[2016-08-02 10:19] LABS: BATH SALTS (MDPV) UR NEG (NEG); ECSTASY (MDMA) UR NEG (NEG); HEROIN (6-ACETYLMORPHINE) UR NEG (NEG); K2 SPICE UR NEG (NEG); OBMETHADONE UR NEG (NEG)
--- NOTE | 2016-08-02 10:51 | HHI.PR ---
Subjective Remarks Pt states she has some pain in her leg but denies any chest pain, SOB, nausea or vomiting discussed w RN, Pt's BP have been elevated. Objective Vitals Vital Signs Date Time Temp Pulse Resp B/P Pulse Ox O2 Delivery O2 Flow Rate FiO2 08/02/16 10:00 89 08/02/16 08:00 97.4 94 17 180/83 94 08/02/16 08:00 98 08/02/16 07:00 95 Room Air 08/02/16 06:00 100 08/02/16 04:00 98.6 96 22 157/73 96 08/02/16 04:00 96 08/02/16 02:00 112 08/02/16 00:00 104 08/02/16 00:00 98.4 112 17 166/102 93 08/01/16 22:00 110 08/01/16 20:00 87 08/01/16 20:00 98.1 85 13 167/78 95 08/01/16 19:00 97 Room Air 08/01/16 18:00 92 08/01/16 16:00 98.5 103 17 152/95 94 08/01/16 16:00 103 08/01/16 14:00 93 08/01/16 12:00 124 08/01/16 12:00 98.2 124 21 179/82 93 I/O 08/01/16 08/01/16 08/01/16 08/02/16 08/02/16 08/02/16 07:00 15:00 23:00 07:00 15:00 23:00 Intake Total 1813 ml 1225 ml 1393 ml 1513 ml Output Total 1101 ml 976 ml 1002 ml 950 ml Balance 712 ml 249 ml 391 ml 563 ml Intake Oral 960 ml 240 ml 480 ml 500 ml IV Total 853 ml 985 ml 913 ml 1013 ml Output Urine Total 500 ml 250 ml 150 ml 150 ml Stool Total 1 ml 1 ml 2 ml Drainage Total 600 ml 725 ml 850 ml 800 ml # Bowel Movements 1 Result Diagram: 08/02/16 0449 08/02/16 0449 Imaging Last Impressions Catheter Placement X-Ray 07/30/16 0000 Signed Impressions: Service Date/Time: Saturday, July 30, 2016 14:14 - CONCLUSION: Uncomplicated line placement as above. Judson Cee MD Brain MRI 07/29/16 0000 Signed Impressions: Service Date/Time: July 13:34 - CONCLUSION: 1. Abnormal examination of the brain demonstrating areas of T2 signal and abnormal diffusion signal involving the globus pallidus bilaterally and the mesial temporal lobes bilaterally. Primary considerations would include carbon monoxide poisoning versus other partial anoxic brain injury. Please see above discussion. Aamir Narayanan MD Chest X-Ray 07/27/16 0000 Signed Impressions: Service Date/Time: Wednesday, July 27, 2016 04:29 - CONCLUSION: Possible interval development of mild interstitial process possibly pulmonary edema and slight left lung base atelectasis. Kathy Berry MD Abdomen Ultrasound 07/26/16 0000 Signed Impressions: Service Date/Time: Tuesday, July 26, 2016 10:21 - CONCLUSION: 1. Small amount of free fluid adjacent to the lower poles of both kidneys. 2. Obscuration of the head of the pancreas, distal IVC and aorta due to overlying bowel gas. 3. Otherwise negative. Judson Cee MD Lower Extremity CT 07/25/16 0000 Signed Impressions: Service Date/Time: Monday, July 25, 2016 18:54 - CONCLUSION: Extensive nonspecific myositis of the right thigh, also involves gluteus medius and minimus proximally and at least medial gastrocnemius below the knee. Infectious/inflammatory and ischemic etiologies would be in the differential. No gas bubbles are seen to substantiate necrotizing fasciitis. No organized/drainable abscess. Glenroy Sheffield MD Hip and Pelvis X-Ray 07/25/16 0000 Signed Impressions: Service Date/Time: Monday, July 25, 2016 16:52 - CONCLUSION: Intact pelvis and right hip. Nonspecific surrounding soft tissue swelling Glenroy Sheffield MD Head CT 07/25/16 0000 Signed Impressions: Service Date/Time: Monday, July 25, 2016 14:38 - CONCLUSION: Negative noncontrast head CT. Glenroy Sheffield MD Chest CT 07/25/16 0000 Signed Impressions: Service Date/Time: Monday, July 25, 2016 16:37 - CONCLUSION: Focal dense consolidation right middle lobe, nonspecific but most likely infectious or inflammatory. Also a 3 mm right basilar pulmonary nodule Followup noncontrast chest CT in a few months recommended to confirm resolution/stability. Glenroy Sheffield MD Abdomen/Pelvis CT 07/25/16 0000 Signed Impressions: Service Date/Time: Monday, July 25, 2016 16:37 - CONCLUSION: 1. Fatty liver and 21 mm right ovarian cyst. Otherwise, no acute abnormality seen within the abdomen or pelvis. 2. Swollen, heterogeneous right hip musculature, primarily gluteus medius and minimus, rectus femoris and vastus lateralis and the adductor muscles. This is nonspecific but suggests a subacute hematoma of these structures. Nothing organized/measurable. 3. Chronic L5 pars defects with grade 2 L5/S1 spondylolisthesis. Glenroy Sheffield MD Objective Remarks GENERAL: 30-year-old female. Critically ill currently resting in bed in no acute distress on nasal cannula CARDIOVASCULAR: RRR Faint systolic 2/6 murmur RESPIRATORY: clear to auscultation w no wheezing this morning. GASTROINTESTINAL: Abdomen soft, non-tender, nondistended. Hypoactive bowel sounds. Abrasions. MUSCULOSKELETAL: Right thigh currently with wound VAC lateral aspect. Right hip tender with restricted mobility. Positive peripheral edema right greater than left lower extremity. NEUROLOGICAL: Awake and alert to person, place and year. Motor grossly within normal limits. A/P Problem List: (1) Compartment syndrome of right lower extremity ICD Code: T79.A21A Status: Acute (2) Rhabdomyolysis ICD Code: M62.82 Status: Acute (3) Severe sepsis ICD Code: A41.9 Status: Acute (4) Altered mental status ICD Code: R41.82 Status: Acute (5) Drug overdose ICD Code: T50.901A Status: Acute (6) Elevated troponin ICD Code: R79.89 Status: Acute (7) Severe metabolic acidosis Status: Acute (8) Lactic acidosis ICD Code: E87.2 Status: Acute (9) Transaminitis ICD Code: R74.0 Status: Acute (10) Hypocalcemia ICD Code: E83.51 Status: Acute (11) Hyperkalemia ICD Code: E87.5 Status: Acute (12) ST elevation ICD Code: R94.31 Status: Acute (13) Acute kidney failure ICD Code: N17.9 Status: Acute (14) Leukocytosis ICD Code: D72.829 Status: Acute (15) Small right middle lobe consolidation Status: Acute (16) Hip hematoma, right ICD Code: S70.01XA Status: Acute Assessment and Plan NEURO: Altered mental status Polysubstance abuse with drug overdose including cocaine/heroin Right upper extremity numbness History of THC use EtOH -Continue to Watch for alcohol and drug withdrawal, Use PRN Ativan for anxiety and oxycodone/morphine as needed for pain -CT of the head 07/25 revealed no acute intracranial findings -on aspirin 325 mg daily for elevated troponin. Continue -switch Thiamine/multivitamin and folate to po daily -MRI brain 07/29 revealed T2 signal abnormality globus pallidus and mesial temporal lobe bilaterally. - EEG 07/30 revealed slowing system with moderate diffuse encephalopathy. No seizure activity. - Psychiatry clear to [place] act 07/29 - Per family request consult neurology for interpretation of MRI findings. RESP: Mild Respiratory insufficiency secondary to pneumonia/metabolic acidosis Small consolidation right middle lobe Right basilar pulmonary nodule 3 mm - follow-up CT chest 3 months recommended Ongoing tobaccoism -Nasal cannula oxygen to maintain saturations greater than equal to 92% -Encouraged Incentive spirometry while awake -CT chest 07/25 revealed right middle lobe infiltrate along with 3 mm right basilar pulmonary nodule. 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 Carter, pt does not meet criteria for STEMI -Continue aspirin 325 mg daily, will not use beta blockers due to cocaine abuse -2d echo revealed EF 60-65%. NRWMA. Lactic acid has cleared increased Norvasc 10 mg daily for hypertension, added clonidine 0.1 mg po BID, with as needed hydralazine and Nitropaste, d/c labetalol GI: Transaminitis Rhabdomyolysis Hyperammonia -Transaminitis most likely secondary to shock/rhabdo -CT of the abdomen and pelvis shows fatty liver/21 mm right ovarian cyst -Negative hepatitis panel -Tolerating renal diet - Xifaxan 550 twice a day/lactulose 30 3 times a day for elevated ammonia. Recheck in AM 12/2 was 49. Recheck in a.m 12/4 was 46. - Noted low ceruloplasmin. 9. Urine copper 24 hours ordered /Renal: Acute kidney failure Acute rhabdomyolysis - on normal saline down to 70cc an hour -07/26 renal ultrasound revealed fluid of at poles of bilateral kidneys otherwise negative - Strict intake output. - Urine electrolytes intrinsic renal process/urine eosinophils negative. - Nephrology following and pt getting dialysis today. Still making some urine but noted to be decreased by RN. - Noted decreased C3 of 19/C4 5 - -1 L hemodialysis 07/31. Plan to repeat on Tuesday [employer]: Right ovarian cyst Beta hCG 1 ID: Severe sepsis Escherichia coli UTI -Source likely secondary to right thigh compartment syndrome -Previously on vancomycin and Zosyn day #6 - currently on Levaquin 500 milligrams every 48 day #4 -Infectious disease following. Small consolidation in the right middle lobe unlikely to be source of severe sepsis Pertinent cultures 07/25 - blood cultures 2 -no growth 07/25 - urine culture -Escherichia coli HEME: Macrocytic anemia Thrombocytopenia -Monitor CBC, CMP, coags in a.m. - Transfused total 4 units PRBCs, 2 pack platelets, 2 FFP 2 cryo-since admission ENDO: -Sliding-scale insulin if clinically indicated FEN: Replace electrolytes as clinically indicated. Currently on renal diet Msk: Right medial/lateral thigh compartment syndrome L5/S1 spondylolisthesis Status post day [address] Turner - wound VAC placement postop day 5 - wound vac changed today PROPH: -Left lower extremity SCDs. was on Heparin 5000 units subcutaneous twice a day but this has been held in light of decreasing platelet/bleeding Discharge Planning transfer to regular floor when BP's better controlled. Problem Qualifiers (1) Drug overdose: Qualified Code: T50.904A - Drug overdose, undetermined intent, initial encounter (2) Acute kidney failure: Qualified Code: N17.9 - Acute renal failure, unspecified acute renal failure type (3) Leukocytosis: Qualified Code: D72.829 - Leukocytosis, unspecified type Florence Stock MD Aug 02, 2016 10:51
[2016-08-02] MEDS ORDERED: amLODIPine BESYLATE 5 MG TAB PO ONE (11:00)
[2016-08-02] MEDS: THIAMINE HCL 100 MG TAB PO SCH (11:00)
--- NOTE | 2016-08-02 11:34 | HHI.GIFU ---
Subjective Remarks Resting in bed. No complaints. No n/v. No abdominal pain. Nurse reports 24 hour urine for copper was sent and is pending. (Sangeeta Dixon) Objective Vitals I&O Vital Signs Date Time Temp Pulse Resp B/P Pulse Ox O2 Delivery O2 Flow Rate FiO2 08/02/16 10:00 89 08/02/16 08:00 97.4 94 17 180/83 94 08/02/16 08:00 98 08/02/16 07:00 95 Room Air 08/02/16 06:00 100 08/02/16 04:00 98.6 96 22 157/73 96 08/02/16 04:00 96 08/02/16 02:00 112 08/02/16 00:00 104 08/02/16 00:00 98.4 112 17 166/102 93 08/01/16 22:00 110 08/01/16 20:00 87 08/01/16 20:00 98.1 85 13 167/78 95 08/01/16 19:00 97 Room Air 08/01/16 18:00 92 08/01/16 16:00 98.5 103 17 152/95 94 08/01/16 16:00 103 08/01/16 14:00 93 08/01/16 12:00 124 08/01/16 12:00 98.2 124 21 179/82 93 I/O 08/01/16 08/01/16 08/01/16 08/02/16 08/02/16 08/02/16 07:00 15:00 23:00 07:00 15:00 23:00 Intake Total 1813 ml 1225 ml 1393 ml 1513 ml Output Total 1101 ml 976 ml 1002 ml 950 ml Balance 712 ml 249 ml 391 ml 563 ml Intake Oral 960 ml 240 ml 480 ml 500 ml IV Total 853 ml 985 ml 913 ml 1013 ml Output Urine Total 500 ml 250 ml 150 ml 150 ml Stool Total 1 ml 1 ml 2 ml Drainage Total 600 ml 725 ml 850 ml 800 ml # Bowel Movements 1 Laboratory Laboratory Tests Test 08/02/16 04:49 White Blood Count 7.9 Red Blood Count 2.77 Hemoglobin 8.8 Hematocrit 25.5 Mean Corpuscular Volume 92.2 Mean Corpuscular Hemoglobin 31.9 Mean Corpuscular Hemoglobin 34.6 Concent Red Cell Distribution Width 18.7 Platelet Count 76 Mean Platelet Volume 8.7 Neutrophils (%) (Auto) 78.7 Lymphocytes (%) (Auto) 9.3 Monocytes (%) (Auto) 10.0 Eosinophils (%) (Auto) 1.4 Basophils (%) (Auto) 0.6 Neutrophils # (Auto) 6.2 Lymphocytes # (Auto) 0.7 Monocytes # (Auto) 0.8 Eosinophils # (Auto) 0.1 Basophils # (Auto) 0.0 CBC Comment AUTO DIFF Differential Comment AUTO DIFF CONFIRMED Platelet Estimate LOW Platelet Morphology Comment NORMAL Prothrombin Time 11.3 Prothromb Time International 1.0 Ratio Activated Partial 26.6 Thromboplast Time Fibrinogen 166 Sodium Level 137 Potassium Level 3.8 Chloride Level 101 Carbon Dioxide Level 26.7 Anion Gap 9 Blood Urea Nitrogen 32 Creatinine 6.24 Estimat Glomerular Filtration 8 Rate Random Glucose 103 Lactic Acid Level 0.8 Calcium Level 7.3 Protein Corrected Calcium 9.2 Phosphorus Level 4.2 Magnesium Level 1.9 Total Bilirubin 0.9 Aspartate Amino Transf 56 (AST/SGOT) Alanine Aminotransferase 75 (ALT/SGPT) Alkaline Phosphatase 61 Total Protein 3.9 Albumin 1.7 Random Vancomycin Level 20.4 Imaging Last Impressions Catheter Placement X-Ray 07/30/16 0000 Signed Impressions: Service Date/Time: Saturday, July 30, 2016 14:14 - CONCLUSION: Uncomplicated line placement as above. Judson Cee MD Brain MRI 07/29/16 0000 Signed Impressions: Service Date/Time: July 13:34 - CONCLUSION: 1. Abnormal examination of the brain demonstrating areas of T2 signal and abnormal diffusion signal involving the globus pallidus bilaterally and the mesial temporal lobes bilaterally. Primary considerations would include carbon monoxide poisoning versus other partial anoxic brain injury. Please see above discussion. Aamir Narayanan MD Chest X-Ray 07/27/16 0000 Signed Impressions: Service Date/Time: Wednesday, July 27, 2016 04:29 - CONCLUSION: Possible interval development of mild interstitial process possibly pulmonary edema and slight left lung base atelectasis. Ktahy Berry MD Abdomen Ultrasound 07/26/16 0000 Signed Impressions: Service Date/Time: Tuesday, July 26, 2016 10:21 - CONCLUSION: 1. Small amount of free fluid adjacent to the lower poles of both kidneys. 2. Obscuration of the head of the pancreas, distal IVC and aorta due to overlying bowel gas. 3. Otherwise negative. Judson Cee MD Lower Extremity CT 07/25/16 Signed Impressions: Service Date/Time: Monday, July 25, 2016 18:54 - CONCLUSION: Extensive nonspecific myositis of the right thigh, also involves gluteus medius and minimus proximally and at least medial gastrocnemius below the knee. Infectious/inflammatory and ischemic etiologies would be in the differential. No gas bubbles are seen to substantiate necrotizing fasciitis. No organized/drainable abscess. Glenroy Sheffield MD Hip and Pelvis X-Ray 07/25/16 Signed Impressions: Service Date/Time: Monday, July 25, 2016 16:52 - CONCLUSION: Intact pelvis and right hip. Nonspecific surrounding soft tissue swelling Glenroy Sheffield MD Head CT 07/25/16 Signed Impressions: Service Date/Time: Monday, July 25, 2016 14:38 - CONCLUSION: Negative noncontrast head CT. Glenroy Sheffield MD Chest CT 07/25/16 0000 Signed Impressions: Service Date/Time: Monday, July 25, 2016 16:37 - CONCLUSION: Focal dense consolidation right middle lobe, nonspecific but most likely infectious or inflammatory. Also a 3 mm right basilar pulmonary nodule Followup noncontrast chest CT in a few months recommended to confirm resolution/stability. Glenroy Sheffield MD Abdomen/Pelvis CT 07/25/16 0000 Signed Impressions: Service Date/Time: Monday, July 25, 2016 16:37 - CONCLUSION: 1. Fatty liver and 21 mm right ovarian cyst. Otherwise, no acute abnormality seen within the abdomen or pelvis. 2. Swollen, heterogeneous right hip musculature, primarily gluteus medius and minimus, rectus femoris and vastus lateralis and the adductor muscles. This is nonspecific but suggests a subacute hematoma of these structures. Nothing organized/measurable. 3. Chronic L5 pars defects with grade 2 L5/S1 spondylolisthesis. Glenroy Sheffield MD Physical Exam CHEST: CTA CARDIAC: RRR ABDOMEN: Soft, nondistended, nontender; no hepatosplenomegaly; bowel sounds are present in all four quadrants. EXTREMITIES: No clubbing, cyanosis. Right thigh lateral wound with wound vac d/ i SKIN: Normal; no rash; no jaundice. MEDICAL AFFAIRS MANAGER: No focal deficits; alert and oriented times three. (ZackSangeeta Berry [facility]) Assessment and Plan Plan ASSESSMENT: - Elevated LFTs, possibly combination of shocked liver and rhabdomyolysis. Abdomen Ultrasound (07/26/16)----> 1. Small amount of free fluid adjacent to the lower poles of both kidneys. 2. Obscuration of the head of the pancreas, distal IVC and aorta due to overlying bowel gas. 3. Otherwise negative. Abdomen/Pelvis CT (07/25/16)----> 1. Fatty liver and 21 mm right ovarian cyst. Otherwise, no acute abnormality seen within the abdomen or pelvis. 2. Swollen, heterogeneous right hip musculature, primarily gluteus medius and minimus, rectus femoris and vastus lateralis and the adductor muscles. This is nonspecific but suggests a subacute hematoma of these structures. Nothing organized/measurable. 3. Chronic L5 pars defects with grade 2 L5/S1 spondylolisthesis. Toxicology report---- > Acetaminophen less than 2.0, Salicylates less than 1.7, Ethyl alcohol 28, toxicology screen negative- although the patient reports that she does use pills and smoke marijuana. Hepatitis panel negative. She does have documented episodes of hypotension as well as rhabdomyolysis. JORY negative, ASMA negative, AMA negative, Ferritin 400, Iron saturation 81.4 (post transfusion), Ceruloplasmin 9, ALpha 1 Antitrypsin 95. LFTs continue to improve, T. Bili 0.9, AST 56, ALT 75, Alk Phosph 61. 24 hour urine for copper is pending. - Low Ceruloplasmin level 9. Brain MRI (07/29/16)----> 1. Abnormal examination of the brain demonstrating areas of T2 signal and abnormal diffusion signal involving the globus pallidus bilaterally and the mesial temporal lobes bilaterally. Primary considerations would include carbon monoxide poisoning versus other partial anoxic brain injury. Please see above discussion. Of note, Branden's disease was also mentioned in the differential. 24 hour urine for copper pending, it is a send out and will be sent out today and resulted on Tuesday. - Low Alpha 1 Antitrypsin 95. Alpha 1 Antitrypsin Phenotype pending. - AMS, IMPROVED. Ammonia 49, but alert and oriented. Xifaxan, Lactulose. - Rhabdomyolysis. IVF per [facility], CPK > 4,182 - Compartment syndrome, s/p fasciotomy, wound vac placement. - Sepsis, elevated lactic acid, likely t/t right thigh compartment syndrome. - Coagulopathy, ? DIC per [facility] - Anemia, 8.8/25.5 - CARLITO, worsening. Creat 6.24. S/P Vascath, HD per renal Plan: - JACY - Await 24 hour urine for copper- to be sent out today and resulted Tuesday - Await Alpha 1 Antitrypsin phenotype - Monitor LFTs - Avoid hypotension - Avoid hepatotoxins - Consider liver biopsy based on results of above - Supportive care - Further recommendations to follow based on results of above - PT seen and examined by Dr. Olguin and myself and this note is written on his behalf (Sangeeta Dixon) Physician Comments Seen and examined, liver bustamante in progress, possible liver biopsy later in the week. (Scooby Olguin MD) Sangeeta Dixon Aug 02, 2016 11:34 Scooby Olguin MD Aug 02, 2016 15:07
[2016-08-02] MEDS: cloNIDine HCL 0.1 MG TAB PO SCH ×2 (11:45→20:31)
--- NOTE | 2016-08-02 12:16 | PD.CARD.PN ---
Subjective Subjective Remarks asleep in nad Objective Vital Signs / I&O Vital Signs Date Time Temp Pulse Resp B/P Pulse Ox O2 Delivery O2 Flow Rate FiO2 08/02/16 10:00 89 08/02/16 08:00 97.4 94 17 180/83 94 08/02/16 08:00 98 08/02/16 07:00 95 Room Air 08/02/16 06:00 100 08/02/16 04:00 98.6 96 22 157/73 96 08/02/16 04:00 96 08/02/16 02:00 112 08/02/16 00:00 104 08/02/16 00:00 98.4 112 17 166/102 93 08/01/16 22:00 110 08/01/16 20:00 87 08/01/16 20:00 98.1 85 13 167/78 95 08/01/16 19:00 97 Room Air 08/01/16 18:00 92 08/01/16 16:00 98.5 103 17 152/95 94 08/01/16 16:00 103 08/01/16 14:00 93 I/O 08/01/16 08/01/16 08/01/16 08/02/16 08/02/16 08/02/16 07:00 15:00 23:00 07:00 15:00 23:00 Intake Total 1813 ml 1225 ml 1393 ml 1513 ml Output Total 1101 ml 976 ml 1002 ml 950 ml Balance 712 ml 249 ml 391 ml 563 ml Intake Oral 960 ml 240 ml 480 ml 500 ml IV Total 853 ml 985 ml 913 ml 1013 ml Output Urine Total 500 ml 250 ml 150 ml 150 ml Stool Total 1 ml 1 ml 2 ml Drainage Total 600 ml 725 ml 850 ml 800 ml # Bowel Movements 1 Physical Exam GENERAL: SKIN: Warm and dry. HEAD: Normocephalic. EYES: No scleral icterus. No injection or drainage. NECK: Supple, trachea midline. No JVD or lymphadenopathy. CARDIOVASCULAR: Regular rate and rhythm without murmurs, gallops, or rubs. RESPIRATORY: Breath sounds equal bilaterally. No accessory muscle use. GASTROINTESTINAL: Abdomen soft, non-tender, nondistended. MUSCULOSKELETAL: No cyanosis, or edema. BACK: Nontender without obvious deformity. No CVA tenderness. Laboratory Laboratory Tests Test 08/02/16 04:49 White Blood Count 7.9 TH/MM3 Red Blood Count 2.77 MIL/MM3 Hemoglobin 8.8 GM/DL Hematocrit 25.5 % Mean Corpuscular Volume 92.2 FL Mean Corpuscular Hemoglobin 31.9 PG Mean Corpuscular Hemoglobin 34.6 % Concent Red Cell Distribution Width 18.7 % Platelet Count 76 TH/MM3 Mean Platelet Volume 8.7 FL Neutrophils (%) (Auto) 78.7 % Lymphocytes (%) (Auto) 9.3 % Monocytes (%) (Auto) 10.0 % Eosinophils (%) (Auto) 1.4 % Basophils (%) (Auto) 0.6 % Neutrophils # (Auto) 6.2 TH/MM3 Lymphocytes # (Auto) 0.7 TH/MM3 Monocytes # (Auto) 0.8 TH/MM3 Eosinophils # (Auto) 0.1 TH/MM3 Basophils # (Auto) 0.0 TH/MM3 CBC Comment AUTO DIFF Differential Comment AUTO DIFF CONFIRMED Platelet Estimate LOW Platelet Morphology Comment NORMAL Prothrombin Time 11.3 SEC Prothromb Time International 1.0 RATIO Ratio Activated Partial 26.6 SEC Thromboplast Time Fibrinogen 166 mg/dL Sodium Level 137 MEQ/L Potassium Level 3.8 MEQ/L Chloride Level 101 MEQ/L Carbon Dioxide Level 26.7 MEQ/L Anion Gap 9 MEQ/L Blood Urea Nitrogen 32 MG/DL Creatinine 6.24 MG/DL Estimat Glomerular Filtration 8 ML/MIN Rate Random Glucose 103 MG/DL Lactic Acid Level 0.8 mmol/L Calcium Level 7.3 MG/DL Protein Corrected Calcium 9.2 MG/DL Phosphorus Level 4.2 MG/DL Magnesium Level 1.9 MG/DL Total Bilirubin 0.9 MG/DL Aspartate Amino Transf 56 U/L (AST/SGOT) Alanine Aminotransferase 75 U/L (ALT/SGPT) Alkaline Phosphatase 61 U/L Total Protein 3.9 GM/DL Albumin 1.7 GM/DL Random Vancomycin Level 20.4 COMMENT Assessment and Plan Problem List: (1) Drug overdose (2) Hypocalcemia (3) SIRS (systemic inflammatory response syndrome) (4) Renal failure (5) Hyperkalemia (6) Lactic acidosis (7) Altered mental status (8) Severe sepsis (9) Elevated troponin (10) Severe metabolic acidosis (11) Acute kidney failure (12) Leukocytosis (13) Hip hematoma, right (14) Small right middle lobe consolidation (15) Rhabdomyolysis (16) Compartment syndrome of right lower extremity Assessment and Plan 1.) Elevated troponin - suspect d/t global hypoperfusion d/t hypotension form sepsis, ef=65%, patient is assymptomatic, trop < 1 2.) POD 4 - hemodynamically stable 3.) ARF - d/t rhabdomyolysis from compartment syndrome, will need dialysis per dr Fletcher d/t no improvement in renal function 4.) HTN - started on amlodipine 10 mg qd Problem Qualifiers (1) Drug overdose: Qualified Code: T50.904A - Drug overdose, undetermined intent, initial encounter (2) Acute kidney failure: Qualified Code: N17.9 - Acute renal failure, unspecified acute renal failure type (3) Leukocytosis: Qualified Code: D72.829 - Leukocytosis, unspecified type Luis Eduardo Carter MD Aug 02, 2016 12:15
[2016-08-02] MEDS: GENTAMICIN SULFATE (DIALYSIS USE ONLY) 20 MG/2 ML VIAL OTHER PRN (12:43)
[2016-08-02] MEDS: HEPARIN SODIUM - IV 10,000 UNITS/10 ML VIAL IV FLUSH PRN (12:43)
[2016-08-02] MEDS: HEPARIN SODIUM - IV 10,000 UNITS/10 ML VIAL IVF PRN (12:44)
[2016-08-02] MEDS: SODIUM CHLOR 0.9% 1000 ML IV PRN (12:44)
[2016-08-02] MEDS: SODIUM CHLORIDE 0.9% FLUSH 5 ML FLUSH IVF PRN (12:45)
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
[2016-08-02] MEDS: SODIUM CHLORIDE 0.9% FLUSH 5 ML FLUSH IV FLUSH PRN (20:31)
[2016-08-03] VITALS (9 sets, daily range): BP systolic 131–147; BP diastolic 73–84; PULSE 86–102; RESP 14–21; TEMP 98.5–100.8; O2SAT 92–95
[2016-08-03] MEDS: CHLORHEXIDINE GLUCONATE 2 % 1 PACK (2 CLOTHS) TOP SCH (04:00)
[2016-08-03 04:49] LABS: AUTOMATED NEUTROPHIL # 4.4 TH/MM3 (1.8-7.7); BASOPHIL % 0.5 % (0.0-2.0); EOSINOPHIL # 0.1 TH/MM3 (0-0.4); EOSINOPHIL % 1.3 % (0.0-4.0); LYMPH % 15.6 % (9.0-44.0); LYMPHOCYTE # 0.9 TH/MM3 (1.0-4.8); MEAN CELL VOLUME 90.7 FL (80.0-100.0); MEAN CORPUSCULAR HEMOGLOBIN 32.2 PG (27.0-34.0); MEAN CORPUSCULAR HGB CONC 35.5 % (32.0-36.0); MONO % 10.4 % (0.0-8.0); NEUT % 72.2 % (16.0-70.0); PLATELET COUNT 62 TH/MM3 (150-450); RED BLOOD COUNT 2.25 MIL/MM3 (4.00-5.30); RED CELL DISTRIBUTION WIDTH 18.8 % (11.6-17.2)
[2016-08-03 04:57] LABS: HEMO FLAGS AUTO DIFF
[2016-08-03 04:59] LABS: HEMATOCRIT 20.5 % (35.0-46.0)
[2016-08-03] MEDS ORDERED: SODIUM CHLOR 0.9% 250 ML INJ 250 ML IV ONE (05:15)
[2016-08-03 05:26] LABS: BICARBONATE 27.8 MEQ/L (21.0-32.0); CALCIUM-PROTEIN CORRECTED 9.3 MG/DL (8.5-10.1); POTASSIUM 3.4 MEQ/L (3.5-5.1); TOTAL BILIRUBIN ADULT 0.6 MG/DL (0.2-1.0)
[2016-08-03 05:47] LABS: CKMB 2.5 NG/ML (0.5-3.6)
[2016-08-03 08:02] LABS: PLATELET ESTIMATE SMEAR LOW (NORMAL); PLATELET MORPHOLOGY NORMAL (NORMAL); SCAN/DIFF AUTO DIFF CONFIRMED
[2016-08-03] MEDS: ASPIRIN EC 325 MG TABEC PO SCH (09:32)
[2016-08-03] MEDS: THIAMINE HCL 100 MG TAB PO SCH (09:32)
[2016-08-03] MEDS: RIFAXIMIN 550 MG TAB PO SCH ×2 (09:32→21:16)
[2016-08-03] MEDS: FAMOTIDINE 20 MG TAB PO SCH ×2 (09:32→21:17)
[2016-08-03] MEDS: LACTULOSE SYRUP 20 GM/30 ML CUP PO SCH ×2 (09:32→21:16)
[2016-08-03] MEDS: MULTIVITAMIN TAB PO SCH (09:32)
[2016-08-03] MEDS: FOLIC ACID 1 MG TAB PO SCH (09:32)
[2016-08-03] MEDS: cloNIDine HCL 0.1 MG TAB PO SCH ×2 (09:32→21:17)
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
[2016-08-03] MEDS: MORPHINE SULFATE 4 MG/ML INJ IV PRN ×2 (11:53→19:52)
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
[2016-08-03] MEDS ORDERED: POTASSIUM CHLORIDE 20 MEQ CONTROLLED RELEASE TAB PO ONE (12:30)
--- NOTE | 2016-08-03 12:30 | PD.CARD.PN ---
Subjective Subjective Remarks asleep in nad Objective Vital Signs / I&O Vital Signs Date Time Temp Pulse Resp B/P Pulse Ox O2 Delivery O2 Flow Rate FiO2 08/03/16 08:00 93 Room Air 08/03/16 08:00 102 08/03/16 08:00 100.6 102 16 139/79 93 08/03/16 06:00 99 08/03/16 04:00 92 08/03/16 04:00 99.4 92 14 131/75 94 08/03/16 02:04 12 08/03/16 02:00 98 08/03/16 00:00 86 08/03/16 00:00 99.1 86 14 143/81 95 08/02/16 22:00 92 08/02/16 20:38 14 08/02/16 20:16 97 21 08/02/16 20:00 98.4 92 14 158/83 94 08/02/16 20:00 92 08/02/16 19:00 94 Room Air 08/02/16 18:00 91 08/02/16 16:00 98.6 98 19 139/73 95 08/02/16 16:00 89 08/02/16 14:00 107 08/02/16 12:57 97 21 I/O 08/02/16 08/02/16 08/02/16 08/03/16 08/03/16 08/03/16 06:59 14:59 22:59 06:59 14:59 22:59 Intake Total 1513 ml 1126 ml 1099 ml 707 ml Output Total 950 ml 825 ml 1450 ml 900 ml Balance 563 ml 301 ml -351 ml -193 ml Intake Oral 500 ml 240 ml 480 ml 240 ml IV Total 1013 ml 886 ml 619 ml 467 ml Output Urine Total 150 ml 125 ml 100 ml 100 ml Drainage Total 800 ml 700 ml 850 ml 800 ml Hemodialysis 500 ml # Bowel Movements 1 1 0 0 # Sanitary Pads 1 Pads Physical Exam GENERAL: SKIN: Warm and dry. HEAD: Normocephalic. EYES: No scleral icterus. No injection or drainage. NECK: Supple, trachea midline. No JVD or lymphadenopathy. CARDIOVASCULAR: Regular rate and rhythm without murmurs, gallops, or rubs. RESPIRATORY: Breath sounds equal bilaterally. No accessory muscle use. GASTROINTESTINAL: Abdomen soft, non-tender, nondistended. MUSCULOSKELETAL: No cyanosis, or edema. BACK: Nontender without obvious deformity. No CVA tenderness. GENERAL: SKIN: Warm and dry. HEAD: Normocephalic. EYES: No scleral icterus. No injection or drainage. NECK: Supple, trachea midline. No JVD or lymphadenopathy. CARDIOVASCULAR: Regular rate and rhythm without murmurs, gallops, or rubs. RESPIRATORY: Breath sounds equal bilaterally. No accessory muscle use. GASTROINTESTINAL: Abdomen soft, non-tender, nondistended. MUSCULOSKELETAL: No cyanosis, or edema. BACK: Nontender without obvious deformity. No CVA tenderness. Laboratory Laboratory Tests Test 08/03/16 08/03/16 04:37 05:53 White Blood Count 6.0 TH/MM3 Red Blood Count 2.25 MIL/MM3 Hemoglobin 7.3 GM/DL Hematocrit 20.5 % Mean Corpuscular Volume 90.7 FL Mean Corpuscular Hemoglobin 32.2 PG Mean Corpuscular Hemoglobin 35.5 % Concent Red Cell Distribution Width 18.8 % Platelet Count 62 TH/MM3 Mean Platelet Volume 8.7 FL Neutrophils (%) (Auto) 72.2 % Lymphocytes (%) (Auto) 15.6 % Monocytes (%) (Auto) 10.4 % Eosinophils (%) (Auto) 1.3 % Basophils (%) (Auto) 0.5 % Neutrophils # (Auto) 4.4 TH/MM3 Lymphocytes # (Auto) 0.9 TH/MM3 Monocytes # (Auto) 0.6 TH/MM3 Eosinophils # (Auto) 0.1 TH/MM3 Basophils # (Auto) 0.0 TH/MM3 CBC Comment AUTO DIFF Differential Comment AUTO DIFF CONFIRMED Platelet Estimate LOW Platelet Morphology Comment NORMAL Sodium Level 138 MEQ/L Potassium Level 3.4 MEQ/L Chloride Level 102 MEQ/L Carbon Dioxide Level 27.8 MEQ/L Anion Gap 8 MEQ/L Blood Urea Nitrogen 19 MG/DL Creatinine 4.75 MG/DL Estimat Glomerular Filtration 11 ML/MIN Rate Random Glucose 98 MG/DL Calcium Level 7.2 MG/DL Protein Corrected Calcium 9.3 MG/DL Total Bilirubin 0.6 MG/DL Aspartate Amino Transf 50 U/L (AST/SGOT) Alanine Aminotransferase 56 U/L (ALT/SGPT) Alkaline Phosphatase 56 U/L Total Creatine Kinase 345 U/L Creatine Kinase MB 2.5 NG/ML Creatine Kinase MB % 0.7 % Total Protein 3.6 GM/DL Albumin 1.6 GM/DL Blood Type O POSITIVE Antibody Screen NEGATIVE Crossmatch Leukocyte-Reduced Red Blood Cells Blood Bank Comment Assessment and Plan Problem List: (1) Drug overdose (2) Hypocalcemia (3) SIRS (systemic inflammatory response syndrome) (4) Renal failure (5) Hyperkalemia (6) Lactic acidosis (7) Altered mental status (8) Severe sepsis (9) Elevated troponin (10) Severe metabolic acidosis (11) Acute kidney failure (12) Leukocytosis (13) Hip hematoma, right (14) Small right middle lobe consolidation (15) Rhabdomyolysis (16) Compartment syndrome of right lower extremity Assessment and Plan 1.) Elevated troponin - suspect d/t global hypoperfusion d/t hypotension form sepsis, ef=65%, patient is assymptomatic, trop < 1 2.) POD 4 - hemodynamically stable 3.) ARF - d/t rhabdomyolysis from compartment syndrome, will need dialysis per dr Fletcher d/t no improvement in renal function 4.) HTN - started on amlodipine 10 mg qd Problem Qualifiers (1) Drug overdose: Qualified Code: T50.904A - Drug overdose, undetermined intent, initial encounter (2) Acute kidney failure: Qualified Code: N17.9 - Acute renal failure, unspecified acute renal failure type (3) Leukocytosis: Qualified Code: D72.829 - Leukocytosis, unspecified type Luis Eduardo Carter MD Aug 03, 2016 12:30
--- NOTE | 2016-08-03 12:46 | HHI.PR ---
Subjective Remarks Pt states she is tired and sleepy but otherwise feels ok. Pain controlled. No CP /SOB/N/V Objective Vitals Vital Signs Date Time Temp Pulse Resp B/P Pulse Ox O2 Delivery O2 Flow Rate FiO2 08/03/16 08:00 93 Room Air 08/03/16 08:00 102 08/03/16 08:00 100.6 102 16 139/79 93 08/03/16 06:00 99 08/03/16 04:00 92 08/03/16 04:00 99.4 92 14 131/75 94 08/03/16 02:04 12 08/03/16 02:00 98 08/03/16 00:00 86 08/03/16 00:00 99.1 86 14 143/81 95 08/02/16 22:00 92 08/02/16 20:38 14 08/02/16 20:16 97 21 08/02/16 20:00 98.4 92 14 158/83 94 08/02/16 20:00 92 08/02/16 19:00 94 Room Air 08/02/16 18:00 91 08/02/16 16:00 98.6 98 19 139/73 95 08/02/16 16:00 89 08/02/16 14:00 107 08/02/16 12:57 97 21 I/O 08/02/16 08/02/16 08/02/16 08/03/16 08/03/16 08/03/16 07:00 15:00 23:00 07:00 15:00 23:00 Intake Total 1513 ml 1126 ml 1099 ml 707 ml Output Total 950 ml 825 ml 1450 ml 900 ml Balance 563 ml 301 ml -351 ml -193 ml Intake Oral 500 ml 240 ml 480 ml 240 ml IV Total 1013 ml 886 ml 619 ml 467 ml Output Urine Total 150 ml 125 ml 100 ml 100 ml Drainage Total 800 ml 700 ml 850 ml 800 ml Hemodialysis 500 ml # Bowel Movements 1 1 0 0 # Sanitary Pads 1 Pads Result Diagram: 08/03/16 0437 08/03/16 0437 Imaging Last Impressions Catheter Placement X-Ray 07/30/16 0000 Signed Impressions: Service Date/Time: Saturday, July 30, 2016 14:14 - CONCLUSION: Uncomplicated line placement as above. Judson Cee MD Brain MRI 07/29/16 0000 Signed Impressions: Service Date/Time: July 13:34 - CONCLUSION: 1. Abnormal examination of the brain demonstrating areas of T2 signal and abnormal diffusion signal involving the globus pallidus bilaterally and the mesial temporal lobes bilaterally. Primary considerations would include carbon monoxide poisoning versus other partial anoxic brain injury. Please see above discussion. Aamir Narayanan MD Chest X-Ray 07/27/16 0000 Signed Impressions: Service Date/Time: Wednesday, July 27, 2016 04:29 - CONCLUSION: Possible interval development of mild interstitial process possibly pulmonary edema and slight left lung base atelectasis. Kathy Berry MD Abdomen Ultrasound 07/26/16 0000 Signed Impressions: Service Date/Time: Tuesday, July 26, 2016 10:21 - CONCLUSION: 1. Small amount of free fluid adjacent to the lower poles of both kidneys. 2. Obscuration of the head of the pancreas, distal IVC and aorta due to overlying bowel gas. 3. Otherwise negative. Judson Cee MD Lower Extremity CT 07/25/16 0000 Signed Impressions: Service Date/Time: Monday, July 25, 2016 18:54 - CONCLUSION: Extensive nonspecific myositis of the right thigh, also involves gluteus medius and minimus proximally and at least medial gastrocnemius below the knee. Infectious/inflammatory and ischemic etiologies would be in the differential. No gas bubbles are seen to substantiate necrotizing fasciitis. No organized/drainable abscess. Glenroy Sheffield MD Hip and Pelvis X-Ray 07/25/16 0000 Signed Impressions: Service Date/Time: Monday, July 25, 2016 16:52 - CONCLUSION: Intact pelvis and right hip. Nonspecific surrounding soft tissue swelling Glenroy Sheffield MD Head CT 07/25/16 0000 Signed Impressions: Service Date/Time: Monday, July 25, 2016 14:38 - CONCLUSION: Negative noncontrast head CT. Glenroy Sheffield MD Chest CT 07/25/16 0000 Signed Impressions: Service Date/Time: Monday, July 25, 2016 16:37 - CONCLUSION: Focal dense consolidation right middle lobe, nonspecific but most likely infectious or inflammatory. Also a 3 mm right basilar pulmonary nodule Followup noncontrast chest CT in a few months recommended to confirm resolution/stability. Glenroy Sheffield MD Abdomen/Pelvis CT 07/25/16 0000 Signed Impressions: Service Date/Time: Monday, July 25, 2016 16:37 - CONCLUSION: 1. Fatty liver and 21 mm right ovarian cyst. Otherwise, no acute abnormality seen within the abdomen or pelvis. 2. Swollen, heterogeneous right hip musculature, primarily gluteus medius and minimus, rectus femoris and vastus lateralis and the adductor muscles. This is nonspecific but suggests a subacute hematoma of these structures. Nothing organized/measurable. 3. Chronic L5 pars defects with grade 2 L5/S1 spondylolisthesis. Glenroy Sheffield MD Objective Remarks GENERAL: 30-year-old female. Critically ill currently resting in bed in no acute distress CARDIOVASCULAR: RRR Faint systolic 2/6 murmur RESPIRATORY: clear to auscultation w no wheezing this morning. GASTROINTESTINAL: Abdomen soft, non-tender, nondistended. Hypoactive bowel sounds. Abrasions. MUSCULOSKELETAL: Right thigh currently with wound VAC lateral aspect. Right hip tender with restricted mobility. Positive peripheral edema right greater than left lower extremity. NEUROLOGICAL: Awake and alert to person, place and year. Motor grossly within normal limits. A/P Problem List: (1) Compartment syndrome of right lower extremity ICD Code: T79.A21A Status: Acute (2) Rhabdomyolysis ICD Code: M62.82 Status: Acute (3) Severe sepsis ICD Code: A41.9 Status: Acute (4) Altered mental status ICD Code: R41.82 Status: Acute (5) Drug overdose ICD Code: T50.901A Status: Acute (6) Elevated troponin ICD Code: R79.89 Status: Acute (7) Severe metabolic acidosis Status: Acute (8) Lactic acidosis ICD Code: E87.2 Status: Acute (9) Transaminitis ICD Code: R74.0 Status: Acute (10) Hypocalcemia ICD Code: E83.51 Status: Acute (11) Hyperkalemia ICD Code: E87.5 Status: Acute (12) ST elevation ICD Code: R94.31 Status: Acute (13) Acute kidney failure ICD Code: N17.9 Status: Acute (14) Leukocytosis ICD Code: D72.829 Status: Acute (15) Small right middle lobe consolidation Status: Acute (16) Hip hematoma, right ICD Code: S70.01XA Status: Acute Assessment and Plan NEURO: Altered mental status Polysubstance abuse with drug overdose including cocaine/heroin Right upper extremity numbness History of THC use EtOH -Continue to Watch for alcohol and drug withdrawal, Use PRN Ativan for anxiety and oxycodone/morphine as needed for pain -CT of the head 07/25 revealed no acute intracranial findings -on aspirin 325 mg daily for elevated troponin. Continue -switch Thiamine/multivitamin and folate to po daily -MRI brain 07/29 revealed T2 signal abnormality globus pallidus and mesial temporal lobe bilaterally. - EEG 07/30 revealed slowing system with moderate diffuse encephalopathy. No seizure activity. - Psychiatry clear to [facility] act 07/29 - neurology evaluated the patient and feels that MRI results are from drug overdose. RESP: Mild Respiratory insufficiency secondary to pneumonia/metabolic acidosis Small consolidation right middle lobe Right basilar pulmonary nodule 3 mm - follow-up CT chest 3 months recommended Ongoing tobaccoism -now on RA -Encouraged Incentive spirometry while awake -CT chest 07/25 revealed right middle lobe infiltrate along with 3 mm right basilar pulmonary nodule. -Chest x-ray 07/26 reveals no significant cardio pulmonary findings -DuoNeb every 2 hours when necessary -See ID section for broad-spectrum antibiotics CV: Elevated troponin Severe lactic acidosis - resolved ST elevation in V1 and V2 -HLIV -Glass Bulb Silverer discussed extensively with Dr. Carter, pt does not meet criteria for STEMI -Continue aspirin 325 mg daily, will not use beta blockers due to cocaine abuse -2d echo revealed EF 60-65%. NRWMA. Lactic acid has cleared on Norvasc 10 mg daily for hypertension, 0.1 mg po BID, with as needed hydralazine and Nitropaste, d/c labetalol GI: Transaminitis Rhabdomyolysis Hyperammonia -Transaminitis most likely secondary to shock/rhabdo -CT of the abdomen and pelvis shows fatty liver/21 mm right ovarian cyst -Negative hepatitis panel -Tolerating renal diet - Xifaxan 550 twice a day/lactulose 30 3 times a day for elevated ammonia. Recheck in AM 07/30 was 49. Recheck in a.m 08/01 was 46. - Noted low ceruloplasmin. 9. Urine copper 24 hours ordered /Renal: Acute kidney failure Acute rhabdomyolysis - on normal saline down to 70cc an hour -07/26 renal ultrasound revealed fluid of at poles of bilateral kidneys otherwise negative - Strict intake output. - Urine electrolytes intrinsic renal process/urine eosinophils negative. - Nephrology following. Still making some urine but noted to be decreased by RN. getting HD - Noted decreased C3 of 19/C4 5 SPECIAL PROCEDURES TECH: Right ovarian cyst Beta hCG 1 ID: Severe sepsis Escherichia coli UTI -Source likely secondary to right thigh compartment syndrome -Previously on vancomycin and Zosyn day #6 - currently on Levaquin 500 milligrams every 48 day -Infectious disease following. Small consolidation in the right middle lobe unlikely to be source of severe sepsis Pertinent cultures 07/25 - blood cultures 2 -no growth 07/25 - urine culture -Escherichia coli HEME: Macrocytic anemia Thrombocytopenia -Monitor CBC, CMP, coags in a.m. - Transfused total 4 units PRBCs, 2 pack platelets, 2 FFP 2 cryo-since admission - Hb 7.3 today. monitor closely. transfuse if <7.0 ENDO: -Sliding-scale insulin if clinically indicated FEN: Replace electrolytes as clinically indicated. Currently on renal diet Msk: Right medial/lateral thigh compartment syndrome L5/S1 spondylolisthesis Status post day [address] Turner - wound VAC placement postop day 6 PROPH: -Left lower extremity SCDs. was on Heparin 5000 units subcutaneous twice a day but this has been held in light of decreasing platelet/bleeding Discharge Planning transfer to regular floor today Problem Qualifiers (1) Drug overdose: Qualified Code: T50.904A - Drug overdose, undetermined intent, initial encounter (2) Acute kidney failure: Qualified Code: N17.9 - Acute renal failure, unspecified acute renal failure type (3) Leukocytosis: Qualified Code: D72.829 - Leukocytosis, unspecified type Florence Stock MD Aug 03, 2016 12:46
[2016-08-03 14:38] LABS: COPPER CONCENTRATION 46 mcg/L (15-60)
[2016-08-03] MEDS: SODIUM CHLORIDE 0.9% FLUSH 5 ML FLUSH IV FLUSH SCH ×2 (15:00→21:17)
--- NOTE | 2016-08-03 17:39 | HHI.GIFU ---
Subjective Remarks Resting in bed. No complaints. No n/v. No abdominal pain. (Sangeeta Dixon) Objective Vitals I&O Vital Signs Date Time Temp Pulse Resp B/P Pulse Ox O2 Delivery O2 Flow Rate FiO2 08/03/16 16:00 100.8 95 20 139/73 93 08/03/16 16:00 95 08/03/16 12:54 19 08/03/16 12:00 100.4 88 21 147/84 92 08/03/16 12:00 88 08/03/16 12:00 21 08/03/16 08:00 93 Room Air 08/03/16 08:00 102 08/03/16 08:00 100.6 102 16 139/79 93 08/03/16 06:00 99 08/03/16 04:00 92 08/03/16 04:00 99.4 92 14 131/75 94 08/03/16 02:00 98 08/03/16 00:00 86 08/03/16 00:00 99.1 86 14 143/81 95 08/02/16 22:00 92 08/02/16 20:16 97 21 08/02/16 20:00 98.4 92 14 158/83 94 08/02/16 20:00 92 08/02/16 19:00 94 Room Air 08/02/16 18:00 91 I/O 08/02/16 08/02/16 08/02/16 08/03/16 08/03/16 08/03/16 07:00 15:00 23:00 07:00 15:00 23:00 Intake Total 1513 ml 1126 ml 1099 ml 707 ml 1086 ml Output Total 950 ml 825 ml 1450 ml 900 ml 575 ml Balance 563 ml 301 ml -351 ml -193 ml 511 ml Intake Oral 500 ml 240 ml 480 ml 240 ml 200 ml IV Total 1013 ml 886 ml 619 ml 467 ml 636 ml Packed Cells 250 ml Output Urine Total 150 ml 125 ml 100 ml 100 ml 125 ml Drainage Total 800 ml 700 ml 850 ml 800 ml 450 ml Hemodialysis 500 ml # Bowel Movements 1 1 0 0 0 # Sanitary Pads 1 Pads Laboratory Laboratory Tests Test 08/03/16 08/03/16 04:37 05:53 White Blood Count 6.0 Red Blood Count 2.25 Hemoglobin 7.3 Hematocrit 20.5 Mean Corpuscular Volume 90.7 Mean Corpuscular Hemoglobin 32.2 Mean Corpuscular Hemoglobin 35.5 Concent Red Cell Distribution Width 18.8 Platelet Count 62 Mean Platelet Volume 8.7 Neutrophils (%) (Auto) 72.2 Lymphocytes (%) (Auto) 15.6 Monocytes (%) (Auto) 10.4 Eosinophils (%) (Auto) 1.3 Basophils (%) (Auto) 0.5 Neutrophils # (Auto) 4.4 Lymphocytes # (Auto) 0.9 Monocytes # (Auto) 0.6 Eosinophils # (Auto) 0.1 Basophils # (Auto) 0.0 CBC Comment AUTO DIFF Differential Comment AUTO DIFF CONFIRMED Platelet Estimate LOW Platelet Morphology Comment NORMAL Sodium Level 138 Potassium Level 3.4 Chloride Level 102 Carbon Dioxide Level 27.8 Anion Gap 8 Blood Urea Nitrogen 19 Creatinine 4.75 Estimat Glomerular Filtration 11 Rate Random Glucose 98 Calcium Level 7.2 Protein Corrected Calcium 9.3 Total Bilirubin 0.6 Aspartate Amino Transf 50 (AST/SGOT) Alanine Aminotransferase 56 (ALT/SGPT) Alkaline Phosphatase 56 Total Creatine Kinase 345 Creatine Kinase MB 2.5 Creatine Kinase MB % 0.7 Total Protein 3.6 Albumin 1.6 Blood Type O POSITIVE Antibody Screen NEGATIVE Crossmatch Leukocyte-Reduced Red Blood Cells Blood Bank Comment Imaging Last Impressions Catheter Placement X-Ray 07/30/16 0000 Signed Impressions: Service Date/Time: Saturday, July 30, 2016 14:14 - CONCLUSION: Uncomplicated line placement as above. Judson Cee MD Brain MRI 07/29/16 0000 Signed Impressions: Service Date/Time: July 13:34 - CONCLUSION: 1. Abnormal examination of the brain demonstrating areas of T2 signal and abnormal diffusion signal involving the globus pallidus bilaterally and the mesial temporal lobes bilaterally. Primary considerations would include carbon monoxide poisoning versus other partial anoxic brain injury. Please see above discussion. Aamir Narayanan MD Chest X-Ray 07/27/16 0000 Signed Impressions: Service Date/Time: Wednesday, July 27, 2016 04:29 - CONCLUSION: Possible interval development of mild interstitial process possibly pulmonary edema and slight left lung base atelectasis. Kathy Berry MD Abdomen Ultrasound 07/26/16 0000 Signed Impressions: Service Date/Time: Tuesday, July 26, 2016 10:21 - CONCLUSION: 1. Small amount of free fluid adjacent to the lower poles of both kidneys. 2. Obscuration of the head of the pancreas, distal IVC and aorta due to overlying bowel gas. 3. Otherwise negative. Judson Cee MD Lower Extremity CT 07/25/16 0000 Signed Impressions: Service Date/Time: Monday, July 25, 2016 18:54 - CONCLUSION: Extensive nonspecific myositis of the right thigh, also involves gluteus medius and minimus proximally and at least medial gastrocnemius below the knee. Infectious/inflammatory and ischemic etiologies would be in the differential. No gas bubbles are seen to substantiate necrotizing fasciitis. No organized/drainable abscess. Glenroy Sheffield MD Hip and Pelvis X-Ray 07/25/16 0000 Signed Impressions: Service Date/Time: Monday, July 25, 2016 16:52 - CONCLUSION: Intact pelvis and right hip. Nonspecific surrounding soft tissue swelling Glenroy Sheffield MD Head CT 07/25/16 0000 Signed Impressions: Service Date/Time: Monday, July 25, 2016 14:38 - CONCLUSION: Negative noncontrast head CT. Glenroy Sheffield MD Chest CT 07/25/16 0000 Signed Impressions: Service Date/Time: Monday, July 25, 2016 16:37 - CONCLUSION: Focal dense consolidation right middle lobe, nonspecific but most likely infectious or inflammatory. Also a 3 mm right basilar pulmonary nodule Followup noncontrast chest CT in a few months recommended to confirm resolution/stability. Glenroy Sheffield MD Abdomen/Pelvis CT 07/25/16 0000 Signed Impressions: Service Date/Time: Monday, July 25, 2016 16:37 - CONCLUSION: 1. Fatty liver and 21 mm right ovarian cyst. Otherwise, no acute abnormality seen within the abdomen or pelvis. 2. Swollen, heterogeneous right hip musculature, primarily gluteus medius and minimus, rectus femoris and vastus lateralis and the adductor muscles. This is nonspecific but suggests a subacute hematoma of these structures. Nothing organized/measurable. 3. Chronic L5 pars defects with grade 2 L5/S1 spondylolisthesis. Glenroy Sheffield MD Physical Exam CHEST: CTA CARDIAC: RRR ABDOMEN: Soft, nondistended, nontender; no hepatosplenomegaly; bowel sounds are present in all four quadrants. EXTREMITIES: No clubbing, cyanosis. Right thigh lateral wound with wound vac d/ i SKIN: Normal; no rash; no jaundice. STAIN SPRAYER: No focal deficits; alert and oriented times three. (Sangeeta Dixon) Assessment and Plan Plan ASSESSMENT: - Elevated LFTs, possibly combination of shocked liver and rhabdomyolysis. Abdomen Ultrasound (07/26/16)----> 1. Small amount of free fluid adjacent to the lower poles of both kidneys. 2. Obscuration of the head of the pancreas, distal IVC and aorta due to overlying bowel gas. 3. Otherwise negative. Abdomen/Pelvis CT (07/25/16)----> 1. Fatty liver and 21 mm right ovarian cyst. Otherwise, no acute abnormality seen within the abdomen or pelvis. 2. Swollen, heterogeneous right hip musculature, primarily gluteus medius and minimus, rectus femoris and vastus lateralis and the adductor muscles. This is nonspecific but suggests a subacute hematoma of these structures. Nothing organized/measurable. 3. Chronic L5 pars defects with grade 2 L5/S1 spondylolisthesis. Toxicology report---- > Acetaminophen less than 2.0, Salicylates less than 1.7, Ethyl alcohol 28, toxicology screen negative- although the patient reports that she does use pills and smoke marijuana. Hepatitis panel negative. She does have documented episodes of hypotension as well as rhabdomyolysis. JORY negative, ASMA negative, AMA negative, Ferritin 400, Iron saturation 81.4 (post transfusion), Ceruloplasmin 9, ALpha 1 Antitrypsin 95. 24 hour urine for copper 27, copper concentration 46- normal limits. 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 LFTs stable - Low Ceruloplasmin level 9. Brain MRI (07/29/16)----> 1. Abnormal examination of the brain demonstrating areas of T2 signal and abnormal diffusion signal involving the globus pallidus bilaterally and the mesial temporal lobes bilaterally. Primary considerations would include carbon monoxide poisoning versus other partial anoxic brain injury. Please see above discussion. Of note, Branden's disease was also mentioned in the differential. 24 hour urine for copper 27, copper concentration 46- normal limits. Will consult ophthalmology for slit lamp exam. Consult IR for liver biopsy. - Low Alpha 1 Antitrypsin 95. Rpt. high- 192, Phenotype MM - AMS, IMPROVED. Ammonia 49, but alert and oriented. Xifaxan, Lactulose. - Rhabdomyolysis. IVF per [facility], CPK > 4,182 - Compartment syndrome, s/p fasciotomy, wound vac placement. - Sepsis, elevated lactic acid, likely t/t right thigh compartment syndrome. - Coagulopathy, ? DIC per [facility] - Anemia, 7.3/20.5. - CARLITO, worsening. Creat 7.50. HD per renal Plan: - JACY - Consult Ophthalmology for slit lamp exam for Bre-Sylvia rings - Consult IR for liver biopsy - Monitor LFTs - Avoid hypotension - Avoid hepatotoxins - Supportive care - Further recommendations to follow based on results of above - PT seen and examined by Dr. Olguin and myself and this note is written on his behalf (Sangeeta Dixon) Physician Comments Seen and examined with Ms. Zack COREAS, no clear etiology of liver disease, ? ETOH. Liver biopsy ordered. Check PT/INR and CBC. (Scooby lOguin MD) Sangeeta Dixon Aug 03, 2016 17:39 Scooby Olguin MD Aug 03, 2016 17:46
[2016-08-03] MEDS: SODIUM CHLORIDE 0.9% FLUSH 5 ML FLUSH IV FLUSH PRN (19:52)
[2016-08-03] MEDS: LEVOFLOXACIN 500 MG TAB PO SCH (21:17)
[2016-08-04] VITALS (10 sets, daily range): BP systolic 119–141; BP diastolic 77–88; PULSE 88–108; RESP 16–20; TEMP 98.5–100.4; O2SAT 19–95
[2016-08-04] MEDS: MORPHINE SULFATE 4 MG/ML INJ IV PRN ×5 (00:12→23:56)
[2016-08-04] MEDS: SODIUM CHLORIDE 0.9% FLUSH 5 ML FLUSH IV FLUSH PRN ×2 (00:13→05:10)
[2016-08-04] MEDS: CHLORHEXIDINE GLUCONATE 2 % 1 PACK (2 CLOTHS) TOP SCH (04:00)
[2016-08-04 04:35] LABS: BASOPHIL % 0.6 % (0.0-2.0); EOSINOPHIL % 0.6 % (0.0-4.0); HEMATOCRIT 26.2 % (35.0-46.0); LYMPH % 11.4 % (9.0-44.0); LYMPHOCYTE # 0.8 TH/MM3 (1.0-4.8); MEAN CELL VOLUME 90.5 FL (80.0-100.0); MEAN CORPUSCULAR HEMOGLOBIN 31.5 PG (27.0-34.0); MEAN CORPUSCULAR HGB CONC 34.8 % (32.0-36.0); MONO % 6.5 % (0.0-8.0); NEUT % 80.9 % (16.0-70.0); PLATELET COUNT 70 TH/MM3 (150-450); RED BLOOD COUNT 2.89 MIL/MM3 (4.00-5.30); RED CELL DISTRIBUTION WIDTH 17.5 % (11.6-17.2); WHITE BLOOD COUNT 7.4 TH/MM3 (4.0-11.0)
[2016-08-04 04:40] LABS: HEMO FLAGS AUTO DIFF
[2016-08-04 05:00] LABS: POTASSIUM 3.6 MEQ/L (3.5-5.1)
[2016-08-04 08:36] LABS: SCAN/DIFF AUTO DIFF CONFIRMED
--- NOTE | 2016-08-04 08:53 | HHI.NPPN ---
Subjective History of Present Illness 30 year old female with drug OD, Rt thigh compartment syndrome s/p Fasciotomy, Rhabdomyolysis, ARF Additional Remarks Patient is alert, has pain in the Rt. leg. Review of Systems General Constitutional: Fatigue Musculoskeletal MS: Pain/Stiffness Objective Data Data 08/03/16 08/04/16 18:59 06:59 Intake Total 1086 ml 720 ml Output Total 1375 ml 1500 ml Balance -289 ml -780 ml Intake Oral 200 ml 720 ml IV Total 636 ml Packed Cells 250 ml Output Urine Total 125 ml 225 ml Drainage Total 1250 ml 1275 ml # Bowel Movements 1 Vital Signs Date Time Temp Pulse Resp B/P Pulse Ox O2 Delivery O2 Flow Rate FiO2 08/04/16 06:00 94 08/04/16 05:15 16 08/04/16 04:00 92 08/04/16 04:00 100.0 92 18 136/88 94 08/04/16 02:00 88 08/04/16 00:00 98.5 98 20 141/86 95 08/03/16 22:17 16 08/03/16 22:00 89 08/03/16 20:00 98.5 92 20 145/82 94 08/03/16 20:00 92 08/03/16 19:00 95 Room Air 08/03/16 16:00 100.8 95 20 139/73 93 08/03/16 16:00 95 08/03/16 12:00 100.4 88 21 147/84 92 08/03/16 12:00 88 -: 08/04/16 0330 08/04/16 0330 Physical Exam General Appearance: No Acute Distress, Comfortable Neck Neck Exam: Neck Supple Pulmonary Resp Exam: Clear Bilaterally, Breath Sounds Equal Cardiology CV Exam: Regular, Normal Sinus Rhythm Gastrointestinal/Abdomen GI Exam: Soft, Non-Tender, Bowel Sounds Present Extremeties Extremities Exam: Trace Edema Extremeties Remarks Rt thigh vacuum dressing Neurologic Neuro Exam: Alert, Awake Assessment/Plan Problem List: (1) Acute kidney failure Plan: This is likely due to rhabdomyolysis and acute tubular necrosis increased drainage via leg wound c/s I will change her to Daptomycin 440 mg IV with hemodialysis as Vancomycin was stopped HD proceedings noted 1 L on 3 K/HCO3 Urine out put is Slowed Follow urine out put and BMP. (2) Compartment syndrome of right lower extremity Plan: Status post surgery (3) UTI (urinary tract infection) Plan: On Levaquin (4) Severe sepsis Plan: Status post fasciotomy right leg (5) Small right middle lobe consolidation Plan: On antibiotics Problem Qualifiers (1) Acute kidney failure: Qualified Code: N17.9 - Acute renal failure, unspecified acute renal failure type Vinny Fletcher MD Aug 04, 2016 08:53
[2016-08-04] MEDS: FAMOTIDINE 20 MG TAB PO SCH ×2 (09:00→22:10)
[2016-08-04] MEDS: HEPARIN SODIUM - IV 10,000 UNITS/10 ML VIAL IV FLUSH PRN (10:10)
[2016-08-04] MEDS: GENTAMICIN SULFATE (DIALYSIS USE ONLY) 20 MG/2 ML VIAL OTHER PRN (11:23)
--- NOTE | 2016-08-04 11:52 | PD.CARD.PN ---
Subjective Subjective Remarks c/o rle pain Objective Vital Signs / I&O Vital Signs Date Time Temp Pulse Resp B/P Pulse Ox O2 Delivery O2 Flow Rate FiO2 08/04/16 06:00 94 08/04/16 05:15 16 08/04/16 04:00 92 08/04/16 04:00 100.0 92 18 136/88 94 08/04/16 02:00 88 08/04/16 00:00 98.5 98 20 141/86 95 08/03/16 22:17 16 08/03/16 22:00 89 08/03/16 20:00 98.5 92 20 145/82 94 08/03/16 20:00 92 08/03/16 19:00 95 Room Air 08/03/16 16:00 100.8 95 20 139/73 93 08/03/16 16:00 95 08/03/16 12:00 100.4 88 21 147/84 92 08/03/16 12:00 88 I/O 08/03/16 08/03/16 08/03/16 08/04/16 08/04/16 08/04/16 06:59 14:59 22:59 06:59 14:59 22:59 Intake Total 707 ml 1086 ml 480 ml 240 ml Output Total 900 ml 575 ml 1400 ml 900 ml 450 ml Balance -193 ml 511 ml -920 ml -660 ml -450 ml Intake Oral 240 ml 200 ml 480 ml 240 ml IV Total 467 ml 636 ml Packed Cells 250 ml Output Urine Total 100 ml 125 ml 125 ml 100 ml Drainage Total 800 ml 450 ml 1275 ml 800 ml 450 ml # Bowel Movements 0 0 1 # Sanitary Pads 1 Pads Physical Exam GENERAL: SKIN: Warm and dry. HEAD: Normocephalic. EYES: No scleral icterus. No injection or drainage. NECK: Supple, trachea midline. No JVD or lymphadenopathy. CARDIOVASCULAR: Regular rate and rhythm without murmurs, gallops, or rubs. RESPIRATORY: Breath sounds equal bilaterally. No accessory muscle use. GASTROINTESTINAL: Abdomen soft, non-tender, nondistended. MUSCULOSKELETAL: No cyanosis, or edema. BACK: Nontender without obvious deformity. No CVA tenderness. GENERAL: SKIN: Warm and dry. HEAD: Normocephalic. EYES: No scleral icterus. No injection or drainage. NECK: Supple, trachea midline. No JVD or lymphadenopathy. CARDIOVASCULAR: Regular rate and rhythm without murmurs, gallops, or rubs. RESPIRATORY: Breath sounds equal bilaterally. No accessory muscle use. GASTROINTESTINAL: Abdomen soft, non-tender, nondistended. MUSCULOSKELETAL: No cyanosis, or edema. BACK: Nontender without obvious deformity. No CVA tenderness. Laboratory Laboratory Tests Test 08/04/16 03:30 White Blood Count 7.4 TH/MM3 Red Blood Count 2.89 MIL/MM3 Hemoglobin 9.1 GM/DL Hematocrit 26.2 % Mean Corpuscular Volume 90.5 FL Mean Corpuscular Hemoglobin 31.5 PG Mean Corpuscular Hemoglobin 34.8 % Concent Red Cell Distribution Width 17.5 % Platelet Count 70 TH/MM3 Mean Platelet Volume 8.8 FL Neutrophils (%) (Auto) 80.9 % Lymphocytes (%) (Auto) 11.4 % Monocytes (%) (Auto) 6.5 % Eosinophils (%) (Auto) 0.6 % Basophils (%) (Auto) 0.6 % Neutrophils # (Auto) 6.0 TH/MM3 Lymphocytes # (Auto) 0.8 TH/MM3 Monocytes # (Auto) 0.5 TH/MM3 Eosinophils # (Auto) 0.0 TH/MM3 Basophils # (Auto) 0.0 TH/MM3 CBC Comment AUTO DIFF Differential Comment AUTO DIFF CONFIRMED Sodium Level 139 MEQ/L Potassium Level 3.6 MEQ/L Chloride Level 103 MEQ/L Carbon Dioxide Level 27.0 MEQ/L Anion Gap 9 MEQ/L Blood Urea Nitrogen 24 MG/DL Creatinine 5.81 MG/DL Estimat Glomerular Filtration 9 ML/MIN Rate Random Glucose 81 MG/DL Calcium Level 7.6 MG/DL Assessment and Plan Problem List: (1) Drug overdose (2) Hypocalcemia (3) SIRS (systemic inflammatory response syndrome) (4) Renal failure (5) Hyperkalemia (6) Lactic acidosis (7) Altered mental status (8) Severe sepsis (9) Elevated troponin (10) Severe metabolic acidosis (11) Acute kidney failure (12) Leukocytosis (13) Hip hematoma, right (14) Small right middle lobe consolidation (15) Rhabdomyolysis (16) Compartment syndrome of right lower extremity Assessment and Plan 1.) Elevated troponin - suspect d/t global hypoperfusion d/t hypotension form sepsis, ef=65%, patient is assymptomatic, trop < 1 2.) POD 4 - hemodynamically stable 3.) ARF - d/t rhabdomyolysis from compartment syndrome, will need dialysis per dr Fletcher d/t no improvement in renal function 4.) HTN - started on amlodipine 10 mg qd 5.) RLE pain - patient returning to icu stat from dialysis Problem Qualifiers (1) Drug overdose: Qualified Code: T50.904A - Drug overdose, undetermined intent, initial encounter (2) Acute kidney failure: Qualified Code: N17.9 - Acute renal failure, unspecified acute renal failure type (3) Leukocytosis: Qualified Code: D72.829 - Leukocytosis, unspecified type Luis Eduardo Carter MD Aug 04, 2016 11:52
[2016-08-04] MEDS: ASPIRIN EC 325 MG TABEC PO SCH (12:27)
[2016-08-04] MEDS: RIFAXIMIN 550 MG TAB PO SCH ×2 (12:27→22:10)
[2016-08-04] MEDS: THIAMINE HCL 100 MG TAB PO SCH (12:27)
[2016-08-04] MEDS: MULTIVITAMIN TAB PO SCH (12:27)
[2016-08-04] MEDS: FOLIC ACID 1 MG TAB PO SCH (12:27)
[2016-08-04] MEDS: LACTULOSE SYRUP 20 GM/30 ML CUP PO SCH ×2 (12:28→22:09)
[2016-08-04] MEDS: cloNIDine HCL 0.1 MG TAB PO SCH ×2 (12:28→22:10)
--- NOTE | 2016-08-04 13:27 | HHI.PR ---
Subjective Remarks Pt currently w studio manager who is adjusting the wound vac as it wasn't functioning properly. PT having pain because of this otherwise has no other complaints. Objective Vitals Vital Signs Date Time Temp Pulse Resp B/P Pulse Ox O2 Delivery O2 Flow Rate FiO2 08/04/16 06:00 94 08/04/16 05:15 16 08/04/16 04:00 92 08/04/16 04:00 100.0 92 18 136/88 94 08/04/16 02:00 88 08/04/16 00:00 98.5 98 20 141/86 95 08/03/16 22:17 16 08/03/16 22:00 89 08/03/16 20:00 98.5 92 20 145/82 94 08/03/16 20:00 92 08/03/16 19:00 95 Room Air 08/03/16 16:00 100.8 95 20 139/73 93 08/03/16 16:00 95 I/O 08/03/16 08/03/16 08/03/16 08/04/16 08/04/16 08/04/16 07:00 15:00 23:00 07:00 15:00 23:00 Intake Total 707 ml 1086 ml 480 ml 240 ml Output Total 900 ml 575 ml 1400 ml 900 ml 2200 ml Balance -193 ml 511 ml -920 ml -660 ml -2200 ml Intake Oral 240 ml 200 ml 480 ml 240 ml IV Total 467 ml 636 ml Packed Cells 250 ml Output Urine Total 100 ml 125 ml 125 ml 100 ml Drainage Total 800 ml 450 ml 1275 ml 800 ml 1400 ml Hemodialysis 800 ml # Bowel Movements 0 0 1 # Sanitary Pads 1 Pads Result Diagram: 08/04/16 0330 08/04/16 0330 Imaging Last Impressions Catheter Placement X-Ray 07/30/16 0000 Signed Impressions: Service Date/Time: Saturday, July 30, 2016 14:14 - CONCLUSION: Uncomplicated line placement as above. Judson Cee MD Brain MRI 07/29/16 0000 Signed Impressions: Service Date/Time: July 13:34 - CONCLUSION: 1. Abnormal examination of the brain demonstrating areas of T2 signal and abnormal diffusion signal involving the globus pallidus bilaterally and the mesial temporal lobes bilaterally. Primary considerations would include carbon monoxide poisoning versus other partial anoxic brain injury. Please see above discussion. Aamir Narayanan MD Chest X-Ray 07/27/16 0000 Signed Impressions: Service Date/Time: Wednesday, July 27, 2016 04:29 - CONCLUSION: Possible interval development of mild interstitial process possibly pulmonary edema and slight left lung base atelectasis. Kathy Berry MD Abdomen Ultrasound 07/26/16 0000 Signed Impressions: Service Date/Time: Tuesday, July 26, 2016 10:21 - CONCLUSION: 1. Small amount of free fluid adjacent to the lower poles of both kidneys. 2. Obscuration of the head of the pancreas, distal IVC and aorta due to overlying bowel gas. 3. Otherwise negative. Judson Cee MD Lower Extremity CT 07/25/16 0000 Signed Impressions: Service Date/Time: Monday, July 25, 2016 18:54 - CONCLUSION: Extensive nonspecific myositis of the right thigh, also involves gluteus medius and minimus proximally and at least medial gastrocnemius below the knee. Infectious/inflammatory and ischemic etiologies would be in the differential. No gas bubbles are seen to substantiate necrotizing fasciitis. No organized/drainable abscess. Glenroy Sheffield MD Hip and Pelvis X-Ray 07/25/16 0000 Signed Impressions: Service Date/Time: Monday, July 25, 2016 16:52 - CONCLUSION: Intact pelvis and right hip. Nonspecific surrounding soft tissue swelling Glenroy Sheffield MD Head CT 07/25/16 0000 Signed Impressions: Service Date/Time: Monday, July 25, 2016 14:38 - CONCLUSION: Negative noncontrast head CT. Glenroy Sheffield MD Chest CT 07/25/16 0000 Signed Impressions: Service Date/Time: Monday, July 25, 2016 16:37 - CONCLUSION: Focal dense consolidation right middle lobe, nonspecific but most likely infectious or inflammatory. Also a 3 mm right basilar pulmonary nodule Followup noncontrast chest CT in a few months recommended to confirm resolution/stability. Glenroy Sheffield MD Abdomen/Pelvis CT 07/25/16 0000 Signed Impressions: Service Date/Time: Monday, July 25, 2016 16:37 - CONCLUSION: 1. Fatty liver and 21 mm right ovarian cyst. Otherwise, no acute abnormality seen within the abdomen or pelvis. 2. Swollen, heterogeneous right hip musculature, primarily gluteus medius and minimus, rectus femoris and vastus lateralis and the adductor muscles. This is nonspecific but suggests a subacute hematoma of these structures. Nothing organized/measurable. 3. Chronic L5 pars defects with grade 2 L5/S1 spondylolisthesis. Glenroy Sheffield MD Objective Remarks GENERAL: 30-year-old female. Critically ill currently resting in bed in no acute distress CARDIOVASCULAR: RRR Faint systolic 2/6 murmur RESPIRATORY: clear to auscultation w no wheezing this morning. GASTROINTESTINAL: Abdomen soft, non-tender, nondistended. Hypoactive bowel sounds. Abrasions. MUSCULOSKELETAL: Right thigh currently with wound VAC lateral aspect. Right hip tender with restricted mobility. Positive peripheral edema right greater than left lower extremity. NEUROLOGICAL: Awake and alert to person, place and year. Motor grossly within normal limits. A/P Problem List: (1) Compartment syndrome of right lower extremity ICD Code: T79.A21A Status: Acute (2) Rhabdomyolysis ICD Code: M62.82 Status: Acute (3) Severe sepsis ICD Code: A41.9 Status: Acute (4) Altered mental status ICD Code: R41.82 Status: Acute (5) Drug overdose ICD Code: T50.901A Status: Acute (6) Elevated troponin ICD Code: R79.89 Status: Acute (7) Severe metabolic acidosis Status: Acute (8) Lactic acidosis ICD Code: E87.2 Status: Acute (9) Transaminitis ICD Code: R74.0 Status: Acute (10) Hypocalcemia ICD Code: E83.51 Status: Acute (11) Hyperkalemia ICD Code: E87.5 Status: Acute (12) ST elevation ICD Code: R94.31 Status: Acute (13) Acute kidney failure ICD Code: N17.9 Status: Acute (14) Leukocytosis ICD Code: D72.829 Status: Acute (15) Small right middle lobe consolidation Status: Acute (16) Hip hematoma, right ICD Code: S70.01XA Status: Acute Assessment and Plan NEURO: Altered mental status Polysubstance abuse with drug overdose including cocaine/heroin Right upper extremity numbness History of THC use EtOH -Continue to Watch for alcohol and drug withdrawal, Use PRN Ativan for anxiety and oxycodone/morphine as needed for pain -CT of the head 07/25 revealed no acute intracranial findings -on aspirin 325 mg daily for elevated troponin. Continue -switch Thiamine/multivitamin and folate to po daily -MRI brain 07/29 revealed T2 signal abnormality globus pallidus and mesial temporal lobe bilaterally. - EEG 07/30 revealed slowing system with moderate diffuse encephalopathy. No seizure activity. - Psychiatry clear to [facility] act 07/29 - neurology evaluated the patient and feels that MRI results are from drug overdose. GI getting ophthalmology consult for eval w slit lamp for Bre- Sylvia rings RESP: Mild Respiratory insufficiency secondary to pneumonia/metabolic acidosis Small consolidation right middle lobe Right basilar pulmonary nodule 3 mm - follow-up CT chest 3 months recommended Ongoing tobaccoism -now on RA -Encouraged Incentive spirometry while awake -CT chest 07/25 revealed right middle lobe infiltrate along with 3 mm right basilar pulmonary nodule. -Chest x-ray 07/26 reveals no significant cardio pulmonary findings -DuoNeb every 2 hours when necessary -See ID section for broad-spectrum antibiotics CV: Elevated troponin Severe lactic acidosis - resolved ST elevation in V1 and V2 -HLIV -Cafe Operator discussed extensively with Dr. Carter, pt does not meet criteria for STEMI -Continue aspirin 325 mg daily, will not use beta blockers due to cocaine abuse -2d echo revealed EF 60-65%. NRWMA. Lactic acid has cleared on Norvasc 10 mg daily for hypertension, 0.1 mg po BID, with as needed hydralazine and Nitropaste, d/c labetalol GI: Transaminitis Rhabdomyolysis Hyperammonia -Transaminitis most likely secondary to shock/rhabdo -CT of the abdomen and pelvis shows fatty liver/21 mm right ovarian cyst -Negative hepatitis panel -Tolerating renal diet - Xifaxan 550 twice a day/lactulose 30 3 times a day for elevated ammonia. Recheck in AM 07/30 was 49. Recheck in a.m 08/01 was 46. - Noted low ceruloplasmin. 9. 24 hr Urine copper 24 - GI consulted IR for liver biopsy /Renal: Acute kidney failure Acute rhabdomyolysis - on normal saline down to 70cc an hour -07/26 renal ultrasound revealed fluid of at poles of bilateral kidneys otherwise negative - Strict intake output. - Urine electrolytes intrinsic renal process/urine eosinophils negative. - Nephrology following. Still making some urine but noted to be decreased by RN. getting HD - Noted decreased C3 of 19/C4 5 HOSPITAL PHARMACY DIRECTOR: Right ovarian cyst Beta hCG 1 ID: Severe sepsis Escherichia coli UTI -Source likely secondary to right thigh compartment syndrome -Previously on vancomycin and Zosyn day #6 - currently on Levaquin 500 milligrams every 48 day -Infectious disease following. Small consolidation in the right middle lobe unlikely to be source of severe sepsis Pertinent cultures 07/25 - blood cultures 2 -no growth 07/25 - urine culture -Escherichia coli HEME: Macrocytic anemia Thrombocytopenia -Monitor CBC, CMP, coags in a.m. - Transfused total 4 units PRBCs, 2 pack platelets, 2 FFP 2 cryo-since admission - Hb 7.3 today. monitor closely. transfuse if <7.0 ENDO: -Sliding-scale insulin if clinically indicated FEN: Replace electrolytes as clinically indicated. Currently on renal diet Msk: Right medial/lateral thigh compartment syndrome L5/S1 spondylolisthesis Status post day [address] Turner - wound VAC placement postop day 7 PROPH: -Left lower extremity SCDs. was on Heparin 5000 units subcutaneous twice a day but this has been held in light of decreasing platelet/bleeding Discharge Planning transfer to regular floor today (bed is available today) d/c when cleared by all specialists Problem Qualifiers (1) Drug overdose: Qualified Code: T50.904A - Drug overdose, undetermined intent, initial encounter (2) Acute kidney failure: Qualified Code: N17.9 - Acute renal failure, unspecified acute renal failure type (3) Leukocytosis: Qualified Code: D72.829 - Leukocytosis, unspecified type Florence Stock MD Aug 04, 2016 13:27
[2016-08-04] MEDS: SODIUM CHLORIDE 0.9% FLUSH 5 ML FLUSH IV FLUSH SCH ×2 (14:00→21:00)
[2016-08-04] MEDS: DAPTOMYCIN IV SCH (14:04)
[2016-08-04] MEDS: SODIUM CHLORIDE 0.9% IV SCH (14:04)
--- NOTE | 2016-08-04 19:20 | HHI.IDPN ---
Subjective Subjective Remarks Delayed entry - pt was seen around 1400 today Her VAC was changed earlier - RN reports granulation tissue and fibrinous d/c in the wound bed SHe still has a lot of problems with short term memory Fever up to 100.8 started on daptomycin Antibiotics levaquine daptomycin Allergies: Coded Allergies: No Known Allergies (Unverified , 12/10/14) Objective . Vital Signs Date Time Temp Pulse Resp B/P Pulse Ox O2 Delivery O2 Flow Rate FiO2 08/04/16 16:00 100.4 101 18 124/87 95 08/04/16 13:34 107 08/04/16 12:00 98.7 107 19 136/82 19 08/04/16 08:00 98.9 98 18 139/80 93 08/04/16 06:00 94 08/04/16 05:15 16 08/04/16 04:00 92 08/04/16 04:00 100.0 92 18 136/88 94 08/04/16 02:00 88 08/04/16 00:00 98.5 98 20 141/86 95 08/03/16 22:17 16 08/03/16 22:00 89 08/03/16 20:00 98.5 92 20 145/82 94 08/03/16 20:00 92 08/03/16 08/03/16 08/04/16 15:00 23:00 07:00 Intake Total 1086 ml 480 ml 240 ml Output Total 575 ml 1400 ml 900 ml Balance 511 ml -920 ml -660 ml Intake Oral 200 ml 480 ml 240 ml IV Total 636 ml Packed Cells 250 ml Output Urine Total 125 ml 125 ml 100 ml Drainage Total 450 ml 1275 ml 800 ml # Bowel Movements 0 1 . Laboratory Tests Test 08/03/16 08/04/16 04:37 03:30 White Blood Count 6.0 TH/MM3 7.4 TH/MM3 Red Blood Count 2.25 MIL/MM3 2.89 MIL/MM3 Hemoglobin 7.3 GM/DL 9.1 GM/DL Hematocrit 20.5 % 26.2 % Mean Corpuscular Volume 90.7 FL 90.5 FL Mean Corpuscular Hemoglobin 32.2 PG 31.5 PG Mean Corpuscular Hemoglobin 35.5 % 34.8 % Concent Red Cell Distribution Width 18.8 % 17.5 % Platelet Count 62 TH/MM3 70 TH/MM3 Mean Platelet Volume 8.7 FL 8.8 FL Neutrophils (%) (Auto) 72.2 % 80.9 % Lymphocytes (%) (Auto) 15.6 % 11.4 % Monocytes (%) (Auto) 10.4 % 6.5 % Eosinophils (%) (Auto) 1.3 % 0.6 % Basophils (%) (Auto) 0.5 % 0.6 % Neutrophils # (Auto) 4.4 TH/MM3 6.0 TH/MM3 Lymphocytes # (Auto) 0.9 TH/MM3 0.8 TH/MM3 Monocytes # (Auto) 0.6 TH/MM3 0.5 TH/MM3 Eosinophils # (Auto) 0.1 TH/MM3 0.0 TH/MM3 Basophils # (Auto) 0.0 TH/MM3 0.0 TH/MM3 CBC Comment AUTO DIFF AUTO DIFF Differential Comment AUTO DIFF AUTO DIFF CONFIRMED CONFIRMED Platelet Estimate LOW Platelet Morphology Comment NORMAL Laboratory Tests Test 08/03/16 08/04/16 08/04/16 04:37 03:30 14:48 Sodium Level 138 MEQ/L 139 MEQ/L Potassium Level 3.4 MEQ/L 3.6 MEQ/L Chloride Level 102 MEQ/L 103 MEQ/L Carbon Dioxide Level 27.8 MEQ/L 27.0 MEQ/L Anion Gap 8 MEQ/L 9 MEQ/L Blood Urea Nitrogen 19 MG/DL 24 MG/DL Creatinine 4.75 MG/DL 5.81 MG/DL Estimat Glomerular Filtration 11 ML/MIN 9 ML/MIN Rate Random Glucose 98 MG/DL 81 MG/DL Calcium Level 7.2 MG/DL 7.6 MG/DL Protein Corrected Calcium 9.3 MG/DL Total Bilirubin 0.6 MG/DL Aspartate Amino Transf 50 U/L (AST/SGOT) Alanine Aminotransferase 56 U/L (ALT/SGPT) Alkaline Phosphatase 56 U/L Total Creatine Kinase 345 U/L Creatine Kinase MB 2.5 NG/ML Creatine Kinase MB % 0.7 % Total Protein 3.6 GM/DL Albumin 1.6 GM/DL Ammonia 72 MCMOL/L Imaging Last Impressions Catheter Placement X-Ray 07/30/16 0000 Signed Impressions: Service Date/Time: Saturday, July 30, 2016 14:14 - CONCLUSION: Uncomplicated line placement as above. Judson Cee MD Brain MRI 07/29/16 0000 Signed Impressions: Service Date/Time: July 13:34 - CONCLUSION: 1. Abnormal examination of the brain demonstrating areas of T2 signal and abnormal diffusion signal involving the globus pallidus bilaterally and the mesial temporal lobes bilaterally. Primary considerations would include carbon monoxide poisoning versus other partial anoxic brain injury. Please see above discussion. Aamir Narayanan MD Chest X-Ray 07/27/16 0000 Signed Impressions: Service Date/Time: Wednesday, July 27, 2016 04:29 - CONCLUSION: Possible interval development of mild interstitial process possibly pulmonary edema and slight left lung base atelectasis. Kathy Berry MD Abdomen Ultrasound 07/26/16 0000 Signed Impressions: Service Date/Time: Tuesday, July 26, 2016 10:21 - CONCLUSION: 1. Small amount of free fluid adjacent to the lower poles of both kidneys. 2. Obscuration of the head of the pancreas, distal IVC and aorta due to overlying bowel gas. 3. Otherwise negative. Judson Cee MD Lower Extremity CT 07/25/16 0000 Signed Impressions: Service Date/Time: Monday, July 25, 2016 18:54 - CONCLUSION: Extensive nonspecific myositis of the right thigh, also involves gluteus medius and minimus proximally and at least medial gastrocnemius below the knee. Infectious/inflammatory and ischemic etiologies would be in the differential. No gas bubbles are seen to substantiate necrotizing fasciitis. No organized/drainable abscess. Glenroy Sheffield MD Hip and Pelvis X-Ray 07/25/16 0000 Signed Impressions: Service Date/Time: Monday, July 25, 2016 16:52 - CONCLUSION: Intact pelvis and right hip. Nonspecific surrounding soft tissue swelling Glenroy Sheffield MD Head CT 07/25/16 0000 Signed Impressions: Service Date/Time: Monday, July 25, 2016 14:38 - CONCLUSION: Negative noncontrast head CT. Glenroy Sheffield MD Chest CT 07/25/16 0000 Signed Impressions: Service Date/Time: Monday, July 25, 2016 16:37 - CONCLUSION: Focal dense consolidation right middle lobe, nonspecific but most likely infectious or inflammatory. Also a 3 mm right basilar pulmonary nodule Followup noncontrast chest CT in a few months recommended to confirm resolution/stability. Glenroy Sheffield MD Abdomen/Pelvis CT 11/27/16 0000 Signed Impressions: Service Date/Time: Monday, July 25, 2016 16:37 - CONCLUSION: 1. Fatty liver and 21 mm right ovarian cyst. Otherwise, no acute abnormality seen within the abdomen or pelvis. 2. Swollen, heterogeneous right hip musculature, primarily gluteus medius and minimus, rectus femoris and vastus lateralis and the adductor muscles. This is nonspecific but suggests a subacute hematoma of these structures. Nothing organized/measurable. 3. Chronic L5 pars defects with grade 2 L5/S1 spondylolisthesis. Glenroy Sheffield MD Physical Exam CONSTITUTIONAL/GENERAL: This is an adequately nourished patient, in no apparent distress. SKIN: No jaundice, rashes, or lesions. Skin temperature appropriate. Not diaphoretic. CARDIOVASCULAR: Regular rate and rhythm without murmurs, gallops, or rubs. No JVD. Peripheral pulses symmetric. RESPIRATORY/CHEST: Symmetric, unlabored respirations. Clear to auscultation. Breath sounds equal bilaterally. No wheezes, rales, or rhonchi. GASTROINTESTINAL: Abdomen soft, non-tender, mildly distended. No hepato- splenomegaly, or palpable masses. No guarding. Bowel sounds present. GENITOURINARY: Without palpable bladder distension. Sinclair catheter in place with negligent amount of dark urine MUSCULOSKELETAL: Extremities without clubbing, cyanosis, Less obvious R thigh non piting edema. VAC dressing in place R thigh with serosangious dc (large amount) No joint tenderness or effusion noted. No calf tenderness. No mottling or clubbing. NEUROLOGICAL: Awake and alert. Motor and sensory grossly within normal limits. Follows commands. normal speech; confused Moves all extremities. Major memory deficits PSYCHIATRIC: calm and cooperative LINES: R IJ VAscath in place wo e/o infx L forearm PIV wo e/o infx Assessment & Plan Remarks R thigh myositis involving multiple muscel groups compartment sd sp fasciotomy Illicit drug OD Sepsis (lactic acidosis, leukocytosis) suspected vs other condition - blood clx negative : final UTI E.coli Anoxic brain injury vs nai monoxide New fever ? infection - central line infx is the main concern - wound does not appear infected per other providers cont levaquine po cont daptomycin for now - monitor CKs while on dapto chk wound clx fu blood clx Kimi Carter MD Aug 04, 2016 19:20
--- NOTE | 2016-08-04 20:45 | MB ---
cc: CASSIE QURESHI MD DATE OF CONSULTATION: 08/04/2016 REASON FOR CONSULTATION: HISTORY OF PRESENT ILLNESS: The patient is a 30 year-old female brought to the ED by police for evaluation. Apparently the patient was found in bed with her boyfriend who had a fatal drug overdose apparently the night before. She has little recollection of the events prior to her admission but has had multiple medical issues that are pending resolution. Due to a low ceruloplasmin and some MRI findings consistent with that seen in Branden's disease, an ophthalmology consultation was requested to look for ocular findings. OCULAR EXAMINATION: In short, the ocular examination is normal. There are no Zamorano-Sylvia rings. IMPRESSION: Normal ocular exam. No findings consistent with Branden's disease (of note, Zamorano-Sylvia rings are present in only about two-thirds of patients with documented Branden's disease). MD ARGENTINA Hutton/IRVING /7:00 PM /8:37 PM
[2016-08-05] VITALS (8 sets, daily range): BP systolic 104–121; BP diastolic 55–78; PULSE 85–98; RESP 16–21; TEMP 96.8–99.1; O2SAT 95–96
[2016-08-05] MEDS: CHLORHEXIDINE GLUCONATE 2 % 1 PACK (2 CLOTHS) TOP SCH (04:00)
[2016-08-05 05:09] LABS: AUTOMATED NEUTROPHIL # 5.1 TH/MM3 (1.8-7.7); BASOPHIL # 0.1 TH/MM3 (0-0.2); BASOPHIL % 0.8 % (0.0-2.0); EOSINOPHIL % 0.5 % (0.0-4.0); HEMATOCRIT 21.2 % (35.0-46.0); LYMPH % 15.9 % (9.0-44.0); LYMPHOCYTE # 1.1 TH/MM3 (1.0-4.8); MEAN CELL VOLUME 89.4 FL (80.0-100.0); MEAN CORPUSCULAR HEMOGLOBIN 31.6 PG (27.0-34.0); MEAN CORPUSCULAR HGB CONC 35.3 % (32.0-36.0); MONO % 9.9 % (0.0-8.0); NEUT % 72.9 % (16.0-70.0); PLATELET COUNT 72 TH/MM3 (150-450); RED BLOOD COUNT 2.37 MIL/MM3 (4.00-5.30); RED CELL DISTRIBUTION WIDTH 18.2 % (11.6-17.2)
[2016-08-05 05:12] LABS: HEMO FLAGS AUTO DIFF
[2016-08-05 05:36] LABS: BICARBONATE 31.2 MEQ/L (21.0-32.0); POTASSIUM 3.1 MEQ/L (3.5-5.1)
[2016-08-05 05:39] LABS: CALCIUM-PROTEIN CORRECTED 9.2 MG/DL (8.5-10.1); TOTAL BILIRUBIN ADULT 0.6 MG/DL (0.2-1.0)
[2016-08-05] MEDS: FAMOTIDINE 20 MG TAB PO SCH ×2 (08:30→21:10)
[2016-08-05] MEDS: ASPIRIN EC 325 MG TABEC PO SCH (08:30)
[2016-08-05] MEDS: RIFAXIMIN 550 MG TAB PO SCH ×2 (08:30→21:10)
[2016-08-05] MEDS: MULTIVITAMIN TAB PO SCH (08:30)
[2016-08-05] MEDS: FOLIC ACID 1 MG TAB PO SCH (08:31)
[2016-08-05] MEDS: THIAMINE HCL 100 MG TAB PO SCH (08:32)
[2016-08-05] MEDS: LACTULOSE SYRUP 20 GM/30 ML CUP PO SCH ×2 (08:32→21:11)
[2016-08-05] MEDS: cloNIDine HCL 0.1 MG TAB PO SCH ×2 (08:32→21:00)
--- NOTE | 2016-08-05 08:34 | PD.CARD.PN ---
Subjective Subjective Remarks alert in nad Objective Vital Signs / I&O Vital Signs Date Time Temp Pulse Resp B/P Pulse Ox O2 Delivery O2 Flow Rate FiO2 08/05/16 08:00 97.9 86 20 104/55 96 08/05/16 05:34 18 08/05/16 04:00 98.1 85 18 111/71 96 08/05/16 01:10 16 08/05/16 00:00 98.5 97 16 119/75 95 08/04/16 22:03 Room Air 08/04/16 22:03 102 08/04/16 20:00 100.1 102 16 119/77 95 08/04/16 16:00 100.4 101 18 124/87 95 08/04/16 13:34 107 08/04/16 12:00 98.7 107 19 136/82 19 I/O 08/04/16 08/04/16 08/04/16 08/05/16 08/05/16 08/05/16 07:00 15:00 23:00 07:00 15:00 23:00 Intake Total 240 ml 320 ml 320 ml 120 ml Output Total 900 ml 2200 ml 650 ml 700 ml Balance -660 ml -2200 ml -330 ml -380 ml 120 ml Intake Oral 240 ml 320 ml 320 ml 120 ml IV Total 0 ml 0 ml Output Urine Total 100 ml 200 ml 100 ml Drainage Total 800 ml 1400 ml 450 ml 600 ml Hemodialysis 800 ml # Bowel Movements 1 1 0 Physical Exam GENERAL: SKIN: Warm and dry. HEAD: Normocephalic. EYES: No scleral icterus. No injection or drainage. NECK: Supple, trachea midline. No JVD or lymphadenopathy. CARDIOVASCULAR: Regular rate and rhythm without murmurs, gallops, or rubs. RESPIRATORY: Breath sounds equal bilaterally. No accessory muscle use. GASTROINTESTINAL: Abdomen soft, non-tender, nondistended. MUSCULOSKELETAL: No cyanosis, or edema. BACK: Nontender without obvious deformity. No CVA tenderness. GENERAL: SKIN: Warm and dry. HEAD: Normocephalic. EYES: No scleral icterus. No injection or drainage. NECK: Supple, trachea midline. No JVD or lymphadenopathy. CARDIOVASCULAR: Regular rate and rhythm without murmurs, gallops, or rubs. RESPIRATORY: Breath sounds equal bilaterally. No accessory muscle use. GASTROINTESTINAL: Abdomen soft, non-tender, nondistended. MUSCULOSKELETAL: No cyanosis, or edema. BACK: Nontender without obvious deformity. No CVA tenderness. Laboratory Laboratory Tests Test 08/04/16 08/05/16 14:48 04:54 Ammonia 72 MCMOL/L White Blood Count 7.0 TH/MM3 Red Blood Count 2.37 MIL/MM3 Hemoglobin 7.5 GM/DL Hematocrit 21.2 % Mean Corpuscular Volume 89.4 FL Mean Corpuscular Hemoglobin 31.6 PG Mean Corpuscular Hemoglobin 35.3 % Concent Red Cell Distribution Width 18.2 % Platelet Count 72 TH/MM3 Mean Platelet Volume 9.6 FL Neutrophils (%) (Auto) 72.9 % Lymphocytes (%) (Auto) 15.9 % Monocytes (%) (Auto) 9.9 % Eosinophils (%) (Auto) 0.5 % Basophils (%) (Auto) 0.8 % Neutrophils # (Auto) 5.1 TH/MM3 Lymphocytes # (Auto) 1.1 TH/MM3 Monocytes # (Auto) 0.7 TH/MM3 Eosinophils # (Auto) 0.0 TH/MM3 Basophils # (Auto) 0.1 TH/MM3 CBC Comment AUTO DIFF Sodium Level 137 MEQ/L Potassium Level 3.1 MEQ/L Chloride Level 99 MEQ/L Carbon Dioxide Level 31.2 MEQ/L Anion Gap 7 MEQ/L Blood Urea Nitrogen 20 MG/DL Creatinine 4.72 MG/DL Estimat Glomerular Filtration 11 ML/MIN Rate Random Glucose 102 MG/DL Calcium Level 7.2 MG/DL Protein Corrected Calcium 9.2 MG/DL Total Bilirubin 0.6 MG/DL Aspartate Amino Transf 44 U/L (AST/SGOT) Alanine Aminotransferase 37 U/L (ALT/SGPT) Alkaline Phosphatase 57 U/L Total Protein 3.7 GM/DL Albumin 1.5 GM/DL Assessment and Plan Problem List: (1) Drug overdose (2) Hypocalcemia (3) SIRS (systemic inflammatory response syndrome) (4) Renal failure (5) Hyperkalemia (6) Lactic acidosis (7) Altered mental status (8) Severe sepsis (9) Elevated troponin (10) Severe metabolic acidosis (11) Acute kidney failure (12) Leukocytosis (13) Hip hematoma, right (14) Small right middle lobe consolidation (15) Rhabdomyolysis (16) Compartment syndrome of right lower extremity Assessment and Plan 1.) Elevated troponin - suspect d/t global hypoperfusion d/t hypotension form sepsis, ef=65%, patient is assymptomatic, trop < 1, on aspirin 325 mg qd 2.) POD 6 - hemodynamically stable 3.) ARF - d/t rhabdomyolysis from compartment syndrome, will need dialysis per dr Fletcher d/t no improvement in renal function 4.) HTN - started on amlodipine 10 mg qd 5.) RLE pain - patient returning to icu stat from dialysis Problem Qualifiers (1) Drug overdose: Qualified Code: T50.904A - Drug overdose, undetermined intent, initial encounter (2) Acute kidney failure: Qualified Code: N17.9 - Acute renal failure, unspecified acute renal failure type (3) Leukocytosis: Qualified Code: D72.829 - Leukocytosis, unspecified type Luis Eduardo Carter MD Aug 05, 2016 08:34
[2016-08-05] MEDS: SODIUM CHLORIDE 0.9% FLUSH 5 ML FLUSH IV FLUSH SCH ×2 (08:37→21:00)
[2016-08-05 08:39] LABS: POLYCHROMASIA 2.1 % (0.0-1.9); ROULEAUX PRESENT (NORMAL)
[2016-08-05 08:40] LABS: PLATELET ESTIMATE SMEAR LOW (NORMAL); PLATELET MORPHOLOGY NORMAL (NORMAL); SCAN/DIFF AUTO DIFF CONFIRMED
[2016-08-05] MEDS: MORPHINE SULFATE 4 MG/ML INJ IV PRN ×2 (09:19→21:10)
[2016-08-05] MEDS ORDERED: POTASSIUM CHLORIDE 20 MEQ CONTROLLED RELEASE TAB PO ONE (10:30)
--- NOTE | 2016-08-05 10:30 | HHI.NPPN ---
Subjective History of Present Illness 30 year old female with drug OD, Rt thigh compartment syndrome s/p Fasciotomy, Rhabdomyolysis, ARF Additional Remarks Patient is alert, has pain in the Rt. leg. Review of Systems General Constitutional: Fatigue Musculoskeletal MS: Pain/Stiffness Objective Data Data 08/04/16 08/05/16 19:00 07:00 Intake Total 640 ml Output Total 2200 ml 1350 ml Balance -2200 ml -710 ml Intake Oral 640 ml IV Total 0 ml Output Urine Total 300 ml Drainage Total 1400 ml 1050 ml Hemodialysis 800 ml # Bowel Movements 1 1 Vital Signs Date Time Temp Pulse Resp B/P Pulse Ox O2 Delivery O2 Flow Rate FiO2 08/05/16 08:28 Room Air 2.00 21 08/05/16 08:00 97.9 86 20 104/55 96 08/05/16 05:34 18 08/05/16 04:00 98.1 85 18 111/71 96 08/05/16 01:10 16 08/05/16 00:00 98.5 97 16 119/75 95 08/04/16 22:03 Room Air 08/04/16 22:03 102 08/04/16 20:00 100.1 102 16 119/77 95 08/04/16 16:00 100.4 101 18 124/87 95 08/04/16 13:34 107 08/04/16 12:00 98.7 107 19 136/82 19 -: 08/05/16 0454 08/05/16 0454 Microbiology 08/05/16 Mycobacterial Culture, Received Pending 08/05/16 Aerobic Blood Culture, Received Pending 08/05/16 Anaerobic Blood Culture, Received Pending 08/05/16 Aerobic Blood Culture, Received Pending 08/05/16 Anaerobic Blood Culture, Received Pending Physical Exam General Appearance: No Acute Distress, Comfortable Neck Neck Exam: Neck Supple Pulmonary Resp Exam: Clear Bilaterally, Breath Sounds Equal Cardiology CV Exam: Regular, Normal Sinus Rhythm Gastrointestinal/Abdomen GI Exam: Soft, Non-Tender, Bowel Sounds Present Extremeties Extremities Exam: Trace Edema Extremeties Remarks Rt thigh vacuum dressing Neurologic Neuro Exam: Alert, Awake Assessment/Plan Problem List: (1) Acute kidney failure Plan: This is likely due to rhabdomyolysis and acute tubular necrosis increased drainage via leg Daptomycin 440 mg IV with hemodialysis and Levaquin HD next tomorrow dc [facility] Urine out put is Slowed Follow urine out put and BMP. (2) Compartment syndrome of right lower extremity Plan: Status post surgery (3) UTI (urinary tract infection) Plan: On Levaquin (4) Severe sepsis Plan: Status post fasciotomy right leg (5) Small right middle lobe consolidation Plan: On antibiotics Problem Qualifiers (1) Acute kidney failure: Qualified Code: N17.9 - Acute renal failure, unspecified acute renal failure type Vinny Fletcher MD Aug 05, 2016 10:30
--- NOTE | 2016-08-05 14:25 | HHI.GIFU ---
Subjective Remarks Resting in bed. No complaints. No n/v, no abdominal pain. (Sangeeta Dixon) Objective Vitals I&O Vital Signs Date Time Temp Pulse Resp B/P Pulse Ox O2 Delivery O2 Flow Rate FiO2 08/05/16 13:28 16 08/05/16 11:21 99.1 88 19 113/64 95 08/05/16 09:24 17 08/05/16 08:28 Room Air 2.00 21 08/05/16 08:00 97.9 86 20 104/55 96 08/05/16 04:00 98.1 85 18 111/71 96 08/05/16 00:00 98.5 97 16 119/75 95 08/04/16 22:03 Room Air 08/04/16 22:03 102 08/04/16 20:00 100.1 102 16 119/77 95 08/04/16 16:00 100.4 101 18 124/87 95 I/O 08/04/16 08/04/16 08/04/16 08/05/16 08/05/16 08/05/16 07:00 15:00 23:00 07:00 15:00 23:00 Intake Total 240 ml 320 ml 320 ml 360 ml Output Total 900 ml 2200 ml 650 ml 700 ml 650 ml Balance -660 ml -2200 ml -330 ml -380 ml -290 ml Intake Oral 240 ml 320 ml 320 ml 360 ml IV Total 0 ml 0 ml 0 ml Output Urine Total 100 ml 200 ml 100 ml 150 ml Drainage Total 800 ml 1400 ml 450 ml 600 ml 500 ml Hemodialysis 800 ml # Bowel Movements 1 1 0 0 # Sanitary Pads 1 Pads Laboratory Laboratory Tests Test 08/04/16 08/05/16 14:48 04:54 Ammonia 72 White Blood Count 7.0 Red Blood Count 2.37 Hemoglobin 7.5 Hematocrit 21.2 Mean Corpuscular Volume 89.4 Mean Corpuscular Hemoglobin 31.6 Mean Corpuscular Hemoglobin 35.3 Concent Red Cell Distribution Width 18.2 Platelet Count 72 Mean Platelet Volume 9.6 Neutrophils (%) (Auto) 72.9 Lymphocytes (%) (Auto) 15.9 Monocytes (%) (Auto) 9.9 Eosinophils (%) (Auto) 0.5 Basophils (%) (Auto) 0.8 Neutrophils # (Auto) 5.1 Lymphocytes # (Auto) 1.1 Monocytes # (Auto) 0.7 Eosinophils # (Auto) 0.0 Basophils # (Auto) 0.1 CBC Comment AUTO DIFF Differential Comment AUTO DIFF CONFIRMED Platelet Estimate LOW Platelet Morphology Comment NORMAL Polychromasia 2.1 Basophilic Stippling MOD Rouleau PRESENT Sodium Level 137 Potassium Level 3.1 Chloride Level 99 Carbon Dioxide Level 31.2 Anion Gap 7 Blood Urea Nitrogen 20 Creatinine 4.72 Estimat Glomerular Filtration 11 Rate Random Glucose 102 Calcium Level 7.2 Protein Corrected Calcium 9.2 Total Bilirubin 0.6 Aspartate Amino Transf 44 (AST/SGOT) Alanine Aminotransferase 37 (ALT/SGPT) Alkaline Phosphatase 57 Total Protein 3.7 Albumin 1.5 Date/Time Procedure Status Source Growth 08/05/16 04:54 Mycobacterial Culture Received Blood Peripheral Pending 08/05/16 04:54 Aerobic Blood Culture Received Blood Peripheral Pending 08/05/16 04:54 Anaerobic Blood Culture Received Blood Peripheral Pending Imaging Last Impressions Catheter Placement X-Ray 07/30/16 0000 Signed Impressions: Service Date/Time: Saturday, July 30, 2016 14:14 - CONCLUSION: Uncomplicated line placement as above. Judson Cee MD Brain MRI 07/29/16 0000 Signed Impressions: Service Date/Time: July 13:34 - CONCLUSION: 1. Abnormal examination of the brain demonstrating areas of T2 signal and abnormal diffusion signal involving the globus pallidus bilaterally and the mesial temporal lobes bilaterally. Primary considerations would include carbon monoxide poisoning versus other partial anoxic brain injury. Please see above discussion. Aamir Narayanan MD Chest X-Ray 07/27/16 0000 Signed Impressions: Service Date/Time: Wednesday, July 27, 2016 04:29 - CONCLUSION: Possible interval development of mild interstitial process possibly pulmonary edema and slight left lung base atelectasis. Kathy Berry MD Abdomen Ultrasound 07/26/16 0000 Signed Impressions: Service Date/Time: Tuesday, July 26, 2016 10:21 - CONCLUSION: 1. Small amount of free fluid adjacent to the lower poles of both kidneys. 2. Obscuration of the head of the pancreas, distal IVC and aorta due to overlying bowel gas. 3. Otherwise negative. Judson Cee MD Lower Extremity CT 07/25/16 0000 Signed Impressions: Service Date/Time: Monday, July 25, 2016 18:54 - CONCLUSION: Extensive nonspecific myositis of the right thigh, also involves gluteus medius and minimus proximally and at least medial gastrocnemius below the knee. Infectious/inflammatory and ischemic etiologies would be in the differential. No gas bubbles are seen to substantiate necrotizing fasciitis. No organized/drainable abscess. Glenroy Sheffield MD Hip and Pelvis X-Ray 07/25/16 0000 Signed Impressions: Service Date/Time: Monday, July 25, 2016 16:52 - CONCLUSION: Intact pelvis and right hip. Nonspecific surrounding soft tissue swelling Glenroy Sheffield MD Head CT 07/25/16 0000 Signed Impressions: Service Date/Time: Monday, July 25, 2016 14:38 - CONCLUSION: Negative noncontrast head CT. Glenroy Sheffield MD Chest CT 07/25/16 0000 Signed Impressions: Service Date/Time: Monday, July 25, 2016 16:37 - CONCLUSION: Focal dense consolidation right middle lobe, nonspecific but most likely infectious or inflammatory. Also a 3 mm right basilar pulmonary nodule Followup noncontrast chest CT in a few months recommended to confirm resolution/stability. Glenroy Sheffield MD Abdomen/Pelvis CT 07/25/16 0000 Signed Impressions: Service Date/Time: Monday, July 25, 2016 16:37 - CONCLUSION: 1. Fatty liver and 21 mm right ovarian cyst. Otherwise, no acute abnormality seen within the abdomen or pelvis. 2. Swollen, heterogeneous right hip musculature, primarily gluteus medius and minimus, rectus femoris and vastus lateralis and the adductor muscles. This is nonspecific but suggests a subacute hematoma of these structures. Nothing organized/measurable. 3. Chronic L5 pars defects with grade 2 L5/S1 spondylolisthesis. Glenroy Sheffield MD Physical Exam CHEST: CTA CARDIAC: RRR ABDOMEN: Soft, nondistended, nontender; no hepatosplenomegaly; bowel sounds are present in all four quadrants. EXTREMITIES: No clubbing, cyanosis. Right thigh lateral wound with wound vac d/ i SKIN: Normal; no rash; no jaundice. SOLE PAINTER: No focal deficits; alert and oriented times three. (Sangeeta Dixon) Assessment and Plan Plan ASSESSMENT: - Elevated LFTs, possibly combination of shocked liver and rhabdomyolysis. Abdomen Ultrasound (07/26/16)----> 1. Small amount of free fluid adjacent to the lower poles of both kidneys. 2. Obscuration of the head of the pancreas, distal IVC and aorta due to overlying bowel gas. 3. Otherwise negative. Abdomen/Pelvis CT (07/25/16)----> 1. Fatty liver and 21 mm right ovarian cyst. Otherwise, no acute abnormality seen within the abdomen or pelvis. 2. Swollen, heterogeneous right hip musculature, primarily gluteus medius and minimus, rectus femoris and vastus lateralis and the adductor muscles. This is nonspecific but suggests a subacute hematoma of these structures. Nothing organized/measurable. 3. Chronic L5 pars defects with grade 2 L5/S1 spondylolisthesis. Toxicology report---- > Acetaminophen less than 2.0, Salicylates less than 1.7, Ethyl alcohol 28, toxicology screen negative- although the patient reports that she does use pills and smoke marijuana. Hepatitis panel negative. She does have documented episodes of hypotension as well as rhabdomyolysis. JORY negative, ASMA negative, AMA negative, Ferritin 400, Iron saturation 81.4 (post transfusion), Ceruloplasmin 9, ALpha 1 Antitrypsin 95. 24 hour urine for copper 27, copper concentration 46- normal limits. 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 LFTs stable - Low Ceruloplasmin level 9. Brain MRI (07/29/16)----> 1. Abnormal examination of the brain demonstrating areas of T2 signal and abnormal diffusion signal involving the globus pallidus bilaterally and the mesial temporal lobes bilaterally. Primary considerations would include carbon monoxide poisoning versus other partial anoxic brain injury. Please see above discussion. Of note, Branden's disease was also mentioned in the differential. 24 hour urine for copper 27, copper concentration 46- normal limits. S/p ophthalmology slit lamp exam-----> normal exam. Liver biopsy. - Low Alpha 1 Antitrypsin 95. Rpt. high- 192, Phenotype MM - AMS, IMPROVED. Ammonia 49, but alert and oriented. Xifaxan, Lactulose. - Rhabdomyolysis. IVF per [facility], CPK > 4,182 - Compartment syndrome, s/p fasciotomy, wound vac placement. - Sepsis, elevated lactic acid, likely t/t right thigh compartment syndrome. - Coagulopathy, ? DIC per [facility] - Anemia, stable - CARLITO, HD per renal Plan: - JACY - Consult IR for liver biopsy - Monitor LFTs - Avoid hypotension - Avoid hepatotoxins - Supportive care - Further recommendations to follow based on results of above - PT seen and examined by Dr. Olguin and myself and this note is written on his behalf (Sangeeta Dixon) Physician Comments Seen and examined with Ms. Zack COREAS, Liver biopsy -p. Monitor labs. (Scooby Olguin MD) Sangeeta Dixon Aug 05, 2016 14:25 Scooby Olguin MD Aug 05, 2016 15:56
--- NOTE | 2016-08-05 14:37 | HHI.PR ---
Subjective Remarks Patient denies abdominal pain, nausea, vomiting denies fevers/chills Low grade fever last night w a T max of 100.1 denies diarrhea low potassium Objective Vitals Vital Signs Date Time Temp Pulse Resp B/P Pulse Ox O2 Delivery O2 Flow Rate FiO2 08/05/16 13:28 16 08/05/16 11:21 99.1 88 19 113/64 95 08/05/16 09:24 17 08/05/16 08:28 Room Air 2.00 21 08/05/16 08:00 97.9 86 20 104/55 96 08/05/16 04:00 98.1 85 18 111/71 96 08/05/16 00:00 98.5 97 16 119/75 95 08/04/16 22:03 Room Air 08/04/16 22:03 102 08/04/16 20:00 100.1 102 16 119/77 95 08/04/16 16:00 100.4 101 18 124/87 95 I/O 08/04/16 08/04/16 08/04/16 08/05/16 08/05/16 08/05/16 06:59 14:59 22:59 06:59 14:59 22:59 Intake Total 240 ml 320 ml 320 ml 360 ml Output Total 900 ml 2200 ml 650 ml 700 ml 650 ml Balance -660 ml -2200 ml -330 ml -380 ml -290 ml Intake Oral 240 ml 320 ml 320 ml 360 ml IV Total 0 ml 0 ml 0 ml Output Urine Total 100 ml 200 ml 100 ml 150 ml Drainage Total 800 ml 1400 ml 450 ml 600 ml 500 ml Hemodialysis 800 ml # Bowel Movements 1 1 0 0 # Sanitary Pads 1 Pads Result Diagram: 08/05/16 0454 08/05/16 0454 Imaging Last Impressions Catheter Placement X-Ray 07/30/16 0000 Signed Impressions: Service Date/Time: Saturday, July 30, 2016 14:14 - CONCLUSION: Uncomplicated line placement as above. Judson Cee MD Brain MRI 07/29/16 0000 Signed Impressions: Service Date/Time: July 13:34 - CONCLUSION: 1. Abnormal examination of the brain demonstrating areas of T2 signal and abnormal diffusion signal involving the globus pallidus bilaterally and the mesial temporal lobes bilaterally. Primary considerations would include carbon monoxide poisoning versus other partial anoxic brain injury. Please see above discussion. Aamir Narayanan MD Chest X-Ray 07/27/16 0000 Signed Impressions: Service Date/Time: Wednesday, July 27, 2016 04:29 - CONCLUSION: Possible interval development of mild interstitial process possibly pulmonary edema and slight left lung base atelectasis. Kathy Berry MD Abdomen Ultrasound 07/26/16 0000 Signed Impressions: Service Date/Time: Tuesday, July 26, 2016 10:21 - CONCLUSION: 1. Small amount of free fluid adjacent to the lower poles of both kidneys. 2. Obscuration of the head of the pancreas, distal IVC and aorta due to overlying bowel gas. 3. Otherwise negative. Judson Cee MD Lower Extremity CT 07/25/16 0000 Signed Impressions: Service Date/Time: Monday, July 25, 2016 18:54 - CONCLUSION: Extensive nonspecific myositis of the right thigh, also involves gluteus medius and minimus proximally and at least medial gastrocnemius below the knee. Infectious/inflammatory and ischemic etiologies would be in the differential. No gas bubbles are seen to substantiate necrotizing fasciitis. No organized/drainable abscess. Glenroy Sheffield MD Hip and Pelvis X-Ray 07/25/16 0000 Signed Impressions: Service Date/Time: Monday, July 25, 2016 16:52 - CONCLUSION: Intact pelvis and right hip. Nonspecific surrounding soft tissue swelling Glenroy Sheffield MD Head CT 07/25/16 0000 Signed Impressions: Service Date/Time: Monday, July 25, 2016 14:38 - CONCLUSION: Negative noncontrast head CT. Glenroy Sheffield MD Chest CT 07/25/16 0000 Signed Impressions: Service Date/Time: Monday, July 25, 2016 16:37 - CONCLUSION: Focal dense consolidation right middle lobe, nonspecific but most likely infectious or inflammatory. Also a 3 mm right basilar pulmonary nodule Followup noncontrast chest CT in a few months recommended to confirm resolution/stability. Glenroy Sheffield MD Abdomen/Pelvis CT 07/25/16 0000 Signed Impressions: Service Date/Time: Monday, July 25, 2016 16:37 - CONCLUSION: 1. Fatty liver and 21 mm right ovarian cyst. Otherwise, no acute abnormality seen within the abdomen or pelvis. 2. Swollen, heterogeneous right hip musculature, primarily gluteus medius and minimus, rectus femoris and vastus lateralis and the adductor muscles. This is nonspecific but suggests a subacute hematoma of these structures. Nothing organized/measurable. 3. Chronic L5 pars defects with grade 2 L5/S1 spondylolisthesis. Glenroy Sheffield MD Objective Remarks GENERAL: 30-year-old female. Critically ill currently resting in bed in no acute distress CARDIOVASCULAR: RRR Faint systolic 2/6 murmur RESPIRATORY: clear to auscultation w no wheezing this morning. GASTROINTESTINAL: Abdomen soft, non-tender, nondistended. Hypoactive bowel sounds. Abrasions. MUSCULOSKELETAL: Right thigh currently with wound VAC lateral aspect. Right hip tender with restricted mobility. Positive peripheral edema right greater than left lower extremity. NEUROLOGICAL: Awake and alert to person, place and year. Motor grossly within normal limits. Medications and IVs Current Medications Medications (Trade) Dose Ordered Sig/Sara Route Start Time Stop Time Status Last Admin (NS Flush) 2 ml UNSCH PRN IV FLUSH 07/25/16 16:15 08/04/16 05:10 (NS Flush) 2 ml BID IV FLUSH 07/25/16 21:00 08/05/16 21:00 Miscellaneous Information 1 Q361D XX 07/25/16 16:15 (Chlorhexidine 2% Cloth) Taper DAILY@04 TOP 07/26/16 04:00 07/22/17 03:59 07/30/16 04:00 (Chlorhexidine 2% Cloth) 3 pack UNSCH PRN TOP 07/25/16 16:15 (Ecotrin Ec) 325 mg DAILY PO 07/26/16 09:00 08/05/16 08:30 (Morphine Inj) 4 mg Q2H PRN IV 07/25/16 23:45 08/05/16 21:10 (Theragran) 1 tab DAILY PO 07/26/16 09:00 08/05/16 08:30 (Folate) 1 mg DAILY PO 07/26/16 09:00 08/05/16 08:31 (Zofran Inj) 4 mg Q6H PRN IV 07/26/16 08:00 07/29/16 04:18 (D50w (Vial) Inj) 25 ml UNSCH PRN IV PUSH 07/26/16 08:15 (Glucagon Inj) 1 mg UNSCH PRN OTHER 07/26/16 08:15 (Xifaxan) 550 mg BID PO 07/26/16 10:00 08/05/16 21:10 (Apresoline Inj) 10 mg Q1HR PRN IV PUSH 07/28/16 09:30 08/01/16 09:30 (Nitroglycerin 2% Oint) 1 inch Q6H PRN TOPICAL 07/28/16 09:30 (Pepcid) 10 mg BID PO 07/29/16 09:00 08/05/16 21:10 (Pill Splitter) 1 ea UNSCH PRN OTHER 07/29/16 09:00 (Roxicodone) 5 mg Q6H PRN PO 07/29/16 09:00 08/05/16 18:41 (Lactulose Liq) 30 ml BID PO 07/30/16 21:00 08/05/16 21:11 (NS Flush) UNSCH PRN IVF 07/30/16 16:15 (Heparin Inj) UNSCH PRN IVF 07/30/16 16:15 08/02/16 12:44 Levofloxacin 500 mg 500 mg Q48H PO 07/30/16 22:00 08/05/16 21:10 (NS 1000 ml Inj) 1,000 ml @ 0 mls/hr TITRATE PRN IV 07/31/16 17:45 08/02/16 12:44 (Heparin Inj) 8,000 units UNSCH PRN IV FLUSH 07/31/16 17:45 08/04/16 10:10 Heparin Sodium (Porcine) 1000 units 1,000 units Q1H PRN IV FLUSH 07/31/16 17:45 Sodium Chloride 1,000 ml @ 200 mls/hr Q5H PRN IV 07/31/16 17:45 08/02/16 12:45 (NS 250 ml Inj) 200 ml @ 0 mls/hr UNSCH PRN IV 07/31/16 17:45 (Mannitol Inj) 12.5 gm UNSCH PRN IV 07/31/16 17:45 (Albumin 25% Inj) 25 gm UNSCH PRN IV 07/31/16 17:45 (NS Flush) 5 ml UNSCH PRN IVF 07/31/16 17:45 08/02/16 12:45 (Heparin Inj) Dwell Heparin to f... UNSCH PRN OTHER 07/31/16 17:45 (Gentamicin (Dialysis) Inj) 10 mg UNSCH PRN OTHER 07/31/16 17:45 08/04/16 11:23 (Gelfoam 12 Mm/7 Mm Top) 1 foam UNSCH PRN TOP 07/31/16 17:45 (Zofran Inj) 4 mg UNSCH PRN IV 07/31/16 17:45 (Benadryl) 25 mg UNSCH PRN PO 07/31/16 17:45 (Nitrostat Sl) 0.4 mg UNSCH PRN SL 07/31/16 17:45 (Catapres) 0.1 mg UNSCH PRN PO 07/31/16 17:45 (Catapres) 0.1 mg Q12HR PO 08/02/16 11:00 08/05/16 08:32 (Norvasc) 10 mg DAILY PO 08/03/16 09:00 08/04/16 12:27 (Vitamin B1) 100 mg DAILY PO 08/02/16 11:00 08/05/16 08:32 A/P Problem List: (1) Compartment syndrome of right lower extremity ICD Code: T79.A21A Status: Acute (2) Rhabdomyolysis ICD Code: M62.82 Status: Acute (3) Severe sepsis ICD Code: A41.9 Status: Acute (4) Altered mental status ICD Code: R41.82 Status: Acute (5) Drug overdose ICD Code: T50.901A Status: Acute (6) Elevated troponin ICD Code: R79.89 Status: Acute (7) Severe metabolic acidosis Status: Acute (8) Lactic acidosis ICD Code: E87.2 Status: Acute (9) Transaminitis ICD Code: R74.0 Status: Acute (10) Hypocalcemia ICD Code: E83.51 Status: Acute (11) Hyperkalemia ICD Code: E87.5 Status: Acute (12) ST elevation ICD Code: R94.31 Status: Acute (13) Acute kidney failure ICD Code: N17.9 Status: Acute (14) Leukocytosis ICD Code: D72.829 Status: Acute (15) Small right middle lobe consolidation Status: Acute (16) Hip hematoma, right ICD Code: S70.01XA Status: Acute Assessment and Plan NEURO: Altered mental status Polysubstance abuse with drug overdose including cocaine/heroin Right upper extremity numbness History of THC use EtOH -Continue to Watch for alcohol and drug withdrawal, Use PRN Ativan for anxiety and oxycodone/morphine as needed for pain -CT of the head 07/25 revealed no acute intracranial findings -on aspirin 325 mg daily for elevated troponin. Continue -switch Thiamine/multivitamin and folate to po daily -MRI brain 07/29 revealed T2 signal abnormality globus pallidus and mesial temporal lobe bilaterally. - EEG 07/30 revealed slowing system with moderate diffuse encephalopathy. No seizure activity. - Psychiatry clear to [place] act 07/29 - neurology evaluated the patient and feels that MRI results are from drug overdose. GI getting ophthalmology consult for eval w slit lamp for Bre- Sylvia rings - 08/05 ophtalmology exam negative for Bre-Sylvia rings. RESP: Mild Respiratory insufficiency secondary to pneumonia/metabolic acidosis Small consolidation right middle lobe Right basilar pulmonary nodule 3 mm - follow-up CT chest 3 months recommended Ongoing tobaccoism -now on RA -Encouraged Incentive spirometry while awake -CT chest 07/25 revealed right middle lobe infiltrate along with 3 mm right basilar pulmonary nodule. -Chest x-ray 07/26 reveals no significant cardio pulmonary findings -DuoNeb every 2 hours when necessary -See ID section for broad-spectrum antibiotics CV: Elevated troponin Severe lactic acidosis - resolved ST elevation in V1 and V2 -HLIV -[employer] discussed extensively with Dr. Carter, pt does not meet criteria for STEMI -Continue aspirin 325 mg daily, will not use beta blockers due to cocaine abuse -2d echo revealed EF 60-65%. NRWMA. Lactic acid has cleared on Norvasc 10 mg daily for hypertension, 0.1 mg po BID, with as needed hydralazine and Nitropaste, d/c labetalol 08/05 BP stable. Continue Norvasc, clonidine. PRN hydralazine and nitropaste. GI: Transaminitis Rhabdomyolysis Hyperammonia -Transaminitis most likely secondary to shock/rhabdo -CT of the abdomen and pelvis shows fatty liver/21 mm right ovarian cyst -Negative hepatitis panel -Tolerating renal diet - Xifaxan 550 twice a day/lactulose 30 3 times a day for elevated ammonia. Recheck in AM 07/30 was 49. Recheck in a.m 08/01 was 46. - Noted low ceruloplasmin. 9. 24 hr Urine copper 24 - GI consulted IR for liver biopsy, NPO at midnight. /Renal: Acute kidney failure Acute rhabdomyolysis - on normal saline down to 70cc an hour -07/26 renal ultrasound revealed fluid of at poles of bilateral kidneys otherwise negative - Strict intake output. - Urine electrolytes intrinsic renal process/urine eosinophils negative. - Nephrology following. Still making some urine but noted to be decreased by RN. getting HD - Noted decreased C3 of 19/C4 5 [employer] C[employer] DRILLING: Right ovarian cyst Beta hCG 1 ID: Severe sepsis Escherichia coli UTI -Source likely secondary to right thigh compartment syndrome -Previously on vancomycin and Zosyn day #6 - currently on Levaquin 500 milligrams every 48 day -Infectious disease following. Small consolidation in the right middle lobe unlikely to be source of severe sepsis Pertinent cultures 07/25 - blood cultures 2 -no growth 07/25 - urine culture -Escherichia coli HEME: Macrocytic anemia Thrombocytopenia -Monitor CBC, CMP, coags in a.m. - Transfused total 4 units PRBCs, 2 pack platelets, 2 FFP 2 cryo-since admission - Hb 7.3 today. monitor closely. transfuse if <7.0 ENDO: -Sliding-scale insulin if clinically indicated FEN: Replace electrolytes as clinically indicated. Currently on renal diet Msk: Right medial/lateral thigh compartment syndrome L5/S1 spondylolisthesis Status post day [address] Turner - wound VAC placement postop day 7 PROPH: -Left lower extremity SCDs. was on Heparin 5000 units subcutaneous twice a day but this has been held in light of decreasing platelet/bleeding Problem Qualifiers (1) Drug overdose: Qualified Code: T50.904A - Drug overdose, undetermined intent, initial encounter (2) Acute kidney failure: Qualified Code: N17.9 - Acute renal failure, unspecified acute renal failure type (3) Leukocytosis: Qualified Code: D72.829 - Leukocytosis, unspecified type Daniel Goncalves MD Aug 05, 2016 14:37
[2016-08-05 15:08] LABS: AUTOMATED NEUTROPHIL # 6.7 TH/MM3 (1.8-7.7); BASOPHIL % 0.3 % (0.0-2.0); EOSINOPHIL % 0.5 % (0.0-4.0); HEMATOCRIT 24.6 % (35.0-46.0); LYMPH % 11.4 % (9.0-44.0); MEAN CELL VOLUME 89.8 FL (80.0-100.0); MEAN CORPUSCULAR HEMOGLOBIN 31.3 PG (27.0-34.0); MEAN CORPUSCULAR HGB CONC 34.9 % (32.0-36.0); MONO % 7.3 % (0.0-8.0); NEUT % 80.5 % (16.0-70.0); PLATELET COUNT 93 TH/MM3 (150-450); RED BLOOD COUNT 2.74 MIL/MM3 (4.00-5.30); RED CELL DISTRIBUTION WIDTH 18.3 % (11.6-17.2); WHITE BLOOD COUNT 8.4 TH/MM3 (4.0-11.0)
[2016-08-05 15:12] LABS: HEMO FLAGS AUTO DIFF
[2016-08-05 15:19] LABS: APTT (PATIENT) 28.4 SEC (24.3-30.1); PROTHROMBIN TIME - PATIENT 10.9 SEC (9.8-11.6)
--- NOTE | 2016-08-05 15:22 | HHI.IDPN ---
Subjective Subjective Remarks afebrile today cont to have memeory issues Improved UOP Antibiotics levaquine daptomycin Allergies: Coded Allergies: No Known Allergies (Unverified , 12/10/14) Objective . Vital Signs Date Time Temp Pulse Resp B/P Pulse Ox O2 Delivery O2 Flow Rate FiO2 08/05/16 13:28 16 08/05/16 11:21 99.1 88 19 113/64 95 08/05/16 09:24 17 08/05/16 08:28 Room Air 2.00 21 08/05/16 08:00 97.9 86 20 104/55 96 08/05/16 04:00 98.1 85 18 111/71 96 08/05/16 00:00 98.5 97 16 119/75 95 08/04/16 22:03 Room Air 08/04/16 22:03 102 08/04/16 20:00 100.1 102 16 119/77 95 08/04/16 16:00 100.4 101 18 124/87 95 08/04/16 08/04/16 08/05/16 14:59 22:59 06:59 Intake Total 320 ml 320 ml Output Total 2200 ml 650 ml 700 ml Balance -2200 ml -330 ml -380 ml Intake Oral 320 ml 320 ml IV Total 0 ml 0 ml Output Urine Total 200 ml 100 ml Drainage Total 1400 ml 450 ml 600 ml Hemodialysis 800 ml # Bowel Movements 1 1 0 . Laboratory Tests Test 08/04/16 08/05/16 08/05/16 03:30 04:54 14:48 White Blood Count 7.4 TH/MM3 7.0 TH/MM3 8.4 TH/MM3 Red Blood Count 2.89 MIL/MM3 2.37 MIL/MM3 2.74 MIL/MM3 Hemoglobin 9.1 GM/DL 7.5 GM/DL 8.6 GM/DL Hematocrit 26.2 % 21.2 % 24.6 % Mean Corpuscular Volume 90.5 FL 89.4 FL 89.8 FL Mean Corpuscular Hemoglobin 31.5 PG 31.6 PG 31.3 PG Mean Corpuscular Hemoglobin 34.8 % 35.3 % 34.9 % Concent Red Cell Distribution Width 17.5 % 18.2 % 18.3 % Platelet Count 70 TH/MM3 72 TH/MM3 93 TH/MM3 Mean Platelet Volume 8.8 FL 9.6 FL 9.1 FL Neutrophils (%) (Auto) 80.9 % 72.9 % 80.5 % Lymphocytes (%) (Auto) 11.4 % 15.9 % 11.4 % Monocytes (%) (Auto) 6.5 % 9.9 % 7.3 % Eosinophils (%) (Auto) 0.6 % 0.5 % 0.5 % Basophils (%) (Auto) 0.6 % 0.8 % 0.3 % Neutrophils # (Auto) 6.0 TH/MM3 5.1 TH/MM3 6.7 TH/MM3 Lymphocytes # (Auto) 0.8 TH/MM3 1.1 TH/MM3 1.0 TH/MM3 Monocytes # (Auto) 0.5 TH/MM3 0.7 TH/MM3 0.6 TH/MM3 Eosinophils # (Auto) 0.0 TH/MM3 0.0 TH/MM3 0.0 TH/MM3 Basophils # (Auto) 0.0 TH/MM3 0.1 TH/MM3 0.0 TH/MM3 CBC Comment AUTO DIFF AUTO DIFF AUTO DIFF Differential Comment AUTO DIFF AUTO DIFF CONFIRMED CONFIRMED Platelet Estimate LOW Platelet Morphology Comment NORMAL Polychromasia 2.1 % Basophilic Stippling MOD Rouleau PRESENT Laboratory Tests Test 08/04/16 08/04/16 08/05/16 03:30 14:48 04:54 Sodium Level 139 MEQ/L 137 MEQ/L Potassium Level 3.6 MEQ/L 3.1 MEQ/L Chloride Level 103 MEQ/L 99 MEQ/L Carbon Dioxide Level 27.0 MEQ/L 31.2 MEQ/L Anion Gap 9 MEQ/L 7 MEQ/L Blood Urea Nitrogen 24 MG/DL 20 MG/DL Creatinine 5.81 MG/DL 4.72 MG/DL Estimat Glomerular Filtration 9 ML/MIN 11 ML/MIN Rate Random Glucose 81 MG/DL 102 MG/DL Calcium Level 7.6 MG/DL 7.2 MG/DL Ammonia 72 MCMOL/L Protein Corrected Calcium 9.2 MG/DL Total Bilirubin 0.6 MG/DL Aspartate Amino Transf 44 U/L (AST/SGOT) Alanine Aminotransferase 37 U/L (ALT/SGPT) Alkaline Phosphatase 57 U/L Total Protein 3.7 GM/DL Albumin 1.5 GM/DL Microbiology Date/Time Procedure Status Source Growth 08/05/16 04:54 Mycobacterial Culture Received Blood Peripheral Pending 08/05/16 04:54 Aerobic Blood Culture Received Blood Peripheral Pending 08/05/16 04:54 Anaerobic Blood Culture Received Blood Peripheral Pending 08/05/16 04:54 Aerobic Blood Culture Received Blood Peripheral Pending 08/05/16 04:54 Anaerobic Blood Culture Received Blood Peripheral Pending Imaging Last Impressions Catheter Placement X-Ray 07/30/16 0000 Signed Impressions: Service Date/Time: Saturday, July 30, 2016 14:14 - CONCLUSION: Uncomplicated line placement as above. Judson Cee MD Brain MRI 07/29/16 0000 Signed Impressions: Service Date/Time: July 13:34 - CONCLUSION: 1. Abnormal examination of the brain demonstrating areas of T2 signal and abnormal diffusion signal involving the globus pallidus bilaterally and the mesial temporal lobes bilaterally. Primary considerations would include carbon monoxide poisoning versus other partial anoxic brain injury. Please see above discussion. Aamir Narayanan MD Chest X-Ray 07/27/16 0000 Signed Impressions: Service Date/Time: Wednesday, July 27, 2016 04:29 - CONCLUSION: Possible interval development of mild interstitial process possibly pulmonary edema and slight left lung base atelectasis. Katyh Berry MD Abdomen Ultrasound 07/26/16 0000 Signed Impressions: Service Date/Time: Tuesday, July 26, 2016 10:21 - CONCLUSION: 1. Small amount of free fluid adjacent to the lower poles of both kidneys. 2. Obscuration of the head of the pancreas, distal IVC and aorta due to overlying bowel gas. 3. Otherwise negative. Judson Cee MD Lower Extremity CT 07/25/16 0000 Signed Impressions: Service Date/Time: Monday, July 25, 2016 18:54 - CONCLUSION: Extensive nonspecific myositis of the right thigh, also involves gluteus medius and minimus proximally and at least medial gastrocnemius below the knee. Infectious/inflammatory and ischemic etiologies would be in the differential. No gas bubbles are seen to substantiate necrotizing fasciitis. No organized/drainable abscess. Glenroy Sheffield MD Hip and Pelvis X-Ray 07/25/16 0000 Signed Impressions: Service Date/Time: Monday, July 25, 2016 16:52 - CONCLUSION: Intact pelvis and right hip. Nonspecific surrounding soft tissue swelling Glenroy Sheffield MD Head CT 07/25/16 0000 Signed Impressions: Service Date/Time: Monday, July 25, 2016 14:38 - CONCLUSION: Negative noncontrast head CT. Glenroy Sheffield MD Chest CT 07/25/16 0000 Signed Impressions: Service Date/Time: Monday, July 25, 2016 16:37 - CONCLUSION: Focal dense consolidation right middle lobe, nonspecific but most likely infectious or inflammatory. Also a 3 mm right basilar pulmonary nodule Followup noncontrast chest CT in a few months recommended to confirm resolution/stability. Glenroy Sheffield MD Abdomen/Pelvis CT 07/25/16 0000 Signed Impressions: Service Date/Time: Monday, July 25, 2016 16:37 - CONCLUSION: 1. Fatty liver and 21 mm right ovarian cyst. Otherwise, no acute abnormality seen within the abdomen or pelvis. 2. Swollen, heterogeneous right hip musculature, primarily gluteus medius and minimus, rectus femoris and vastus lateralis and the adductor muscles. This is nonspecific but suggests a subacute hematoma of these structures. Nothing organized/measurable. 3. Chronic L5 pars defects with grade 2 L5/S1 spondylolisthesis. Glenroy Sheffield MD Physical Exam CONSTITUTIONAL/GENERAL: This is an adequately nourished patient, in no apparent distress. SKIN: No jaundice, rashes, or lesions. Skin temperature appropriate. Not diaphoretic. CARDIOVASCULAR: Regular rate and rhythm without murmurs, gallops, or rubs. No JVD. Peripheral pulses symmetric. RESPIRATORY/CHEST: Symmetric, unlabored respirations. Clear to auscultation. Breath sounds equal bilaterally. No wheezes, rales, or rhonchi. GASTROINTESTINAL: Abdomen soft, non-tender, mildly distended. No hepato- splenomegaly, or palpable masses. No guarding. Bowel sounds present. GENITOURINARY: Without palpable bladder distension. Sinclair catheter in place with adequate amount of clear yellow urine MUSCULOSKELETAL: Extremities without clubbing, cyanosis, Less obvious R thigh non piting edema. VAC dressing in place R thigh with serosangious dc (large amount) No joint tenderness or effusion noted. No calf tenderness. No mottling or clubbing. NEUROLOGICAL: Awake and alert. Motor and sensory grossly within normal limits. Follows commands. normal speech; confused Moves all extremities. Major memory deficits PSYCHIATRIC: calm and cooperative LINES: R IJ VAscath in place wo e/o infx L forearm PIV wo e/o infx Assessment & Plan Remarks R thigh myositis involving multiple muscel groups compartment sd sp fasciotomy Illicit drug OD Sepsis (lactic acidosis, leukocytosis) suspected vs other condition - blood clx negative : final UTI E.coli Anoxic brain injury vs nai monoxide New fever ? infection - central line infx is the main concern - wound does not appear infected per other providers cont levaquine po cont daptomycin for now - monitor CKs while on dapto chk wound clx fu blood clx if afebrile and neg blood clx will dc daptomycin Kimi Carter MD Aug 05, 2016 15:22
[2016-08-05 15:55] LABS: PLATELET ESTIMATE SMEAR LOW (NORMAL); PLATELET MORPHOLOGY NORMAL (NORMAL); ROULEAUX PRESENT (NORMAL); SCAN/DIFF AUTO DIFF CONFIRMED
--- NOTE | 2016-08-05 16:39 | PD.CAR.PN ---
CVT Progress Note Subjective/Hospital Course: Patient with clinical findings of medial and lateral thigh compartment syndrome For OR now Thanks Delaney 07/26/16 Patient underwent yesterday and medial and lateral fasciotomy of the thigh debridement Today she underwent washout the both, closure of the medial fasciotomy skin and wound VAC placement on lateral fasciotomy The lateral fasciotomy will need wound VAC for but 2 weeks and then this can be covered with the partial-thickness skin graft by plastic surgery 07/27/16 Status post the thigh compartment syndrome with medial and lateral fasciotomy of the right leg Yesterday patient went for washout closure and drainage of the medial fasciotomy site while the lateral fasciotomy from hip to the knee remains open Wound VAC in place Hemoglobin now stable and there is no other source of bleeding Patient was in active DIC and fibrinolysis for the first 48 hours and this is now abating Agree with blood and blood products administration Platelets remain stable and unless these drop on the 30,000 would probably not transfuse Patient can be out of bed and should be bearing weight on this leg as much as possible 07/28/16 CHAZ drainage from the medial closure of the thighs decreased but I will leave it in till the swelling decreases and the third space abates for otherwise patient will develop a seroma in this area Lateral incision now covered with a wound VAC is draining minimally Hemoglobin remains stable Plan Starting tomorrow will have wound care assist with changing wound VAC at the bedside and I will consult plastic surgery for grafting of the wound in the near future 07/29/16 Medial compartment is closed and drainage is minimal so we will DC CHAZ Lateral thigh compartment is open clean and we will start wound VAC changes today Eventually patient will go to the OR for another washout and perhaps little more closure of this area but for the most part she will need a skin grafting of this area 07/30/2016 Medial incision is clean and dry Lateral incision wound VAC has been changed yesterday and he looks nice and clean and granulating nicely Patient will need several wound VAC exchange to before graft can be placed in this area Continue care Patient can transfer to the floor from my point 08/05/16 The patient will undergo tomorrow placement of acellular matrix xenograft in the operating room Wound VAC will then remain on it for about 10 days and then after that patient can be grafted This procedure should take about 30 minutes and then patient will be able to go to rehabilitation or even [place] for about 10 days and then return to us for grafting Objective: Vital Signs Date Time Temp Pulse Resp B/P Pulse Ox O2 Delivery O2 Flow Rate FiO2 08/05/16 16:00 99.1 98 20 114/68 95 08/05/16 13:28 16 08/05/16 11:21 99.1 88 19 113/64 95 08/05/16 09:24 17 08/05/16 08:28 Room Air 2.00 21 08/05/16 08:00 97.9 86 20 104/55 96 08/05/16 04:00 98.1 85 18 111/71 96 08/05/16 00:00 98.5 97 16 119/75 95 08/04/16 22:03 Room Air 08/04/16 22:03 102 08/04/16 20:00 100.1 102 16 119/77 95 Labs: Laboratory Tests Test 08/05/16 08/05/16 04:54 14:48 White Blood Count 7.0 TH/MM3 8.4 TH/MM3 (4.0-11.0) (4.0-11.0) Red Blood Count 2.37 MIL/MM3 2.74 MIL/MM3 (4.00-5.30) (4.00-5.30) Hemoglobin 7.5 GM/DL 8.6 GM/DL (11.6-15.3) (11.6-15.3) Hematocrit 21.2 % 24.6 % (35.0-46.0) (35.0-46.0) Mean Corpuscular Volume 89.4 FL 89.8 FL (80.0-100.0) (80.0-100.0) Mean Corpuscular Hemoglobin 31.6 PG 31.3 PG (27.0-34.0) (27.0-34.0) Mean Corpuscular Hemoglobin 35.3 % 34.9 % Concent (32.0-36.0) (32.0-36.0) Red Cell Distribution Width 18.2 % 18.3 % (11.6-17.2) (11.6-17.2) Platelet Count 72 TH/MM3 93 TH/MM3 (150-450) (150-450) Mean Platelet Volume 9.6 FL 9.1 FL (7.0-11.0) (7.0-11.0) Neutrophils (%) (Auto) 72.9 % 80.5 % (16.0-70.0) (16.0-70.0) Lymphocytes (%) (Auto) 15.9 % 11.4 % (9.0-44.0) (9.0-44.0) Monocytes (%) (Auto) 9.9 % (0.0-8.0) 7.3 % (0.0-8.0) Eosinophils (%) (Auto) 0.5 % (0.0-4.0) 0.5 % (0.0-4.0) Basophils (%) (Auto) 0.8 % (0.0-2.0) 0.3 % (0.0-2.0) Neutrophils # (Auto) 5.1 TH/MM3 6.7 TH/MM3 (1.8-7.7) (1.8-7.7) Lymphocytes # (Auto) 1.1 TH/MM3 1.0 TH/MM3 (1.0-4.8) (1.0-4.8) Monocytes # (Auto) 0.7 TH/MM3 0.6 TH/MM3 (0-0.9) (0-0.9) Eosinophils # (Auto) 0.0 TH/MM3 0.0 TH/MM3 (0-0.4) (0-0.4) Basophils # (Auto) 0.1 TH/MM3 0.0 TH/MM3 (0-0.2) (0-0.2) CBC Comment AUTO DIFF AUTO DIFF Differential Comment AUTO DIFF AUTO DIFF CONFIRMED CONFIRMED Platelet Estimate LOW (NORMAL) LOW (NORMAL) Platelet Morphology Comment NORMAL NORMAL (NORMAL) (NORMAL) Polychromasia 2.1 % (0.0-1.9) Basophilic Stippling MOD (NORMAL) Rouleau PRESENT PRESENT (NORMAL) (NORMAL) Sodium Level 137 MEQ/L (136-145) Potassium Level 3.1 MEQ/L (3.5-5.1) Chloride Level 99 MEQ/L (98-107) Carbon Dioxide Level 31.2 MEQ/L (21.0-32.0) Anion Gap 7 MEQ/L (5-15) Blood Urea Nitrogen 20 MG/DL (7-18) Creatinine 4.72 MG/DL (0.50-1.00) Estimat Glomerular Filtration 11 ML/MIN (>89) Rate Random Glucose 102 MG/DL (74-106) Calcium Level 7.2 MG/DL (8.5-10.1) Protein Corrected Calcium 9.2 MG/DL (8.5-10.1) Total Bilirubin 0.6 MG/DL (0.2-1.0) Aspartate Amino Transf 44 U/L (15-37) (AST/SGOT) Alanine Aminotransferase 37 U/L (10-53) (ALT/SGPT) Alkaline Phosphatase 57 U/L (45-117) Total Protein 3.7 GM/DL (6.4-8.2) Albumin 1.5 GM/DL (3.4-5.0) Prothrombin Time 10.9 SEC (9.8-11.6) Prothromb Time International 1.0 RATIO Ratio Activated Partial 28.4 SEC Thromboplast Time (24.3-30.1) Result Diagram: 08/05/16 1448 08/05/16 0454 (1) Drug overdose (2) Hypocalcemia (3) SIRS (systemic inflammatory response syndrome) (4) Renal failure (5) Hyperkalemia (6) Lactic acidosis (7) Altered mental status (8) Severe sepsis (9) Elevated troponin (10) Severe metabolic acidosis (11) Acute kidney failure (12) Leukocytosis (13) Hip hematoma, right (14) Small right middle lobe consolidation (15) Rhabdomyolysis (16) Compartment syndrome of right lower extremity Problem Qualifiers (1) Drug overdose: Qualified Code: T50.904A - Drug overdose, undetermined intent, initial encounter (2) Acute kidney failure: Qualified Code: N17.9 - Acute renal failure, unspecified acute renal failure type (3) Leukocytosis: Qualified Code: D72.829 - Leukocytosis, unspecified type Saw Turner MD Aug 05, 2016 16:39
[2016-08-05] MEDS: LEVOFLOXACIN 500 MG TAB PO SCH (21:10)
[2016-08-06] MEDS: CHLORHEXIDINE GLUCONATE 2 % 1 PACK (2 CLOTHS) TOP SCH ×2 (03:40→21:47)
[2016-08-06 04:00] VITALS: BP 123/74; PULSE 95; RESP 20; TEMP 98.8; O2SAT 96
[2016-08-06 08:00] VITALS: BP 117/71; PULSE 94; RESP 19; TEMP 98; O2SAT 95
[2016-08-06] MEDS: FOLIC ACID 1 MG TAB PO SCH (08:07)
[2016-08-06] MEDS: MULTIVITAMIN TAB PO SCH (08:08)
[2016-08-06] MEDS: RIFAXIMIN 550 MG TAB PO SCH ×2 (08:08→21:46)
[2016-08-06] MEDS: THIAMINE HCL 100 MG TAB PO SCH (08:08)
[2016-08-06] MEDS: FAMOTIDINE 20 MG TAB PO SCH ×2 (08:09→21:47)
[2016-08-06] MEDS: cloNIDine HCL 0.1 MG TAB PO SCH ×2 (08:09→21:46)
[2016-08-06] MEDS: ASPIRIN EC 325 MG TABEC PO SCH (08:09)
[2016-08-06] MEDS: LACTULOSE SYRUP 20 GM/30 ML CUP PO SCH ×2 (08:09→21:00)
[2016-08-06] MEDS: SODIUM CHLORIDE 0.9% FLUSH 5 ML FLUSH IV FLUSH SCH ×2 (08:10→21:47)
[2016-08-06] MEDS: LACTATED RINGER'S 1000 ML IV SCH ×2 (08:11→21:47)
--- NOTE | 2016-08-06 10:28 | PD.CARD.PN ---
Subjective Subjective Remarks alert in nad Objective Vital Signs / I&O Vital Signs Date Time Temp Pulse Resp B/P Pulse Ox O2 Delivery O2 Flow Rate FiO2 08/06/16 08:00 98.0 94 19 117/71 95 08/06/16 04:00 98.8 95 20 123/74 96 08/06/16 02:02 18 08/05/16 23:55 16 08/05/16 23:24 98.9 98 20 121/78 96 08/05/16 20:50 Room Air 08/05/16 20:50 87 08/05/16 20:00 96.8 87 21 120/77 95 08/05/16 16:00 99.1 98 20 114/68 95 08/05/16 11:21 99.1 88 19 113/64 95 I/O 08/05/16 08/05/16 08/05/16 08/06/16 08/06/16 08/06/16 06:59 14:59 22:59 06:59 14:59 22:59 Intake Total 320 ml 360 ml 120 ml 120 ml 0 ml Output Total 700 ml 650 ml 620 ml 625 ml Balance -380 ml -290 ml -500 ml -505 ml 0 ml Intake Oral 320 ml 360 ml 120 ml 120 ml 0 ml IV Total 0 ml 0 ml 0 ml 0 ml Output Urine Total 100 ml 150 ml 120 ml 300 ml Drainage Total 600 ml 500 ml 500 ml 325 ml # Bowel Movements 0 0 0 0 # Sanitary Pads 1 Pads Physical Exam GENERAL: SKIN: Warm and dry. HEAD: Normocephalic. EYES: No scleral icterus. No injection or drainage. NECK: Supple, trachea midline. No JVD or lymphadenopathy. CARDIOVASCULAR: Regular rate and rhythm without murmurs, gallops, or rubs. RESPIRATORY: Breath sounds equal bilaterally. No accessory muscle use. GASTROINTESTINAL: Abdomen soft, non-tender, nondistended. MUSCULOSKELETAL: No cyanosis, or edema. BACK: Nontender without obvious deformity. No CVA tenderness. GENERAL: SKIN: Warm and dry. HEAD: Normocephalic. EYES: No scleral icterus. No injection or drainage. NECK: Supple, trachea midline. No JVD or lymphadenopathy. CARDIOVASCULAR: Regular rate and rhythm without murmurs, gallops, or rubs. RESPIRATORY: Breath sounds equal bilaterally. No accessory muscle use. GASTROINTESTINAL: Abdomen soft, non-tender, nondistended. MUSCULOSKELETAL: No cyanosis, or edema. BACK: Nontender without obvious deformity. No CVA tenderness. Laboratory Laboratory Tests Test 08/05/16 14:48 White Blood Count 8.4 TH/MM3 Red Blood Count 2.74 MIL/MM3 Hemoglobin 8.6 GM/DL Hematocrit 24.6 % Mean Corpuscular Volume 89.8 FL Mean Corpuscular Hemoglobin 31.3 PG Mean Corpuscular Hemoglobin 34.9 % Concent Red Cell Distribution Width 18.3 % Platelet Count 93 TH/MM3 Mean Platelet Volume 9.1 FL Neutrophils (%) (Auto) 80.5 % Lymphocytes (%) (Auto) 11.4 % Monocytes (%) (Auto) 7.3 % Eosinophils (%) (Auto) 0.5 % Basophils (%) (Auto) 0.3 % Neutrophils # (Auto) 6.7 TH/MM3 Lymphocytes # (Auto) 1.0 TH/MM3 Monocytes # (Auto) 0.6 TH/MM3 Eosinophils # (Auto) 0.0 TH/MM3 Basophils # (Auto) 0.0 TH/MM3 CBC Comment AUTO DIFF Differential Comment AUTO DIFF CONFIRMED Platelet Estimate LOW Platelet Morphology Comment NORMAL Rouleau PRESENT Prothrombin Time 10.9 SEC Prothromb Time International 1.0 RATIO Ratio Activated Partial 28.4 SEC Thromboplast Time Assessment and Plan Problem List: (1) Drug overdose (2) Hypocalcemia (3) SIRS (systemic inflammatory response syndrome) (4) Renal failure (5) Hyperkalemia (6) Lactic acidosis (7) Altered mental status (8) Severe sepsis (9) Elevated troponin (10) Severe metabolic acidosis (11) Acute kidney failure (12) Leukocytosis (13) Hip hematoma, right (14) Small right middle lobe consolidation (15) Rhabdomyolysis (16) Compartment syndrome of right lower extremity Assessment and Plan 1.) Elevated troponin - suspect d/t global hypoperfusion d/t hypotension form sepsis, ef=65%, patient is assymptomatic, trop < 1, on aspirin 325 mg qd 2.) POD 6 - hemodynamically stable 3.) ARF - d/t rhabdomyolysis from compartment syndrome, will need dialysis per dr Fletcher d/t no improvement in renal function 4.) HTN - started on amlodipine 10 mg qd 5.) RLE pain - patient returning to icu stat from dialysis Problem Qualifiers (1) Drug overdose: Qualified Code: T50.904A - Drug overdose, undetermined intent, initial encounter (2) Acute kidney failure: Qualified Code: N17.9 - Acute renal failure, unspecified acute renal failure type (3) Leukocytosis: Qualified Code: D72.829 - Leukocytosis, unspecified type Luis Eduardo Carter MD Aug 06, 2016 10:28
[2016-08-06] MEDS ORDERED: FAMOTIDINE 20 MG/2 ML VIAL ONE (10:43)
[2016-08-06] MEDS ORDERED: MIDAZOLAM HCL 2 MG/2 ML VIAL ONE (10:43)
[2016-08-06] MEDS ORDERED: fentaNYL CITRATE 250 MCG/5 ML AMP ONE (10:51)
[2016-08-06] MEDS ORDERED: PHENYLEPH/NS 1000 MCG/10 ML SYR IV ONE (12:00)
[2016-08-06] MEDS ORDERED: LACTATED RINGER'S 1000 ML INJ 1,000 ML IV ONE (12:00)
[2016-08-06] MEDS ORDERED: PROPOFOL 200 MG/20 ML AMP IV ONE ×2 (12:00)
[2016-08-06] MEDS ORDERED: ONDANSETRON HCL 4 MG/2 ML VIAL IV PUSH ONE (12:00)
[2016-08-06] MEDS ORDERED: DO NOT ADM ANY ANTICOAGULANT DRUGS XX PRN (13:15)
--- NOTE | 2016-08-06 14:12 | HHI.PR ---
Addendum to Inpatient Note Addendum Reason: Additional Documentation Additional Information Attempted to see the pt She is off the floor in OR Pt is afebrile Labs reviewed BC neg at 1 day cont abx stop abx if BC remain negative erchk CKs will see pt Tuesday Dr Doyle nathan for coverage if any acute/ new issues during the w/e Kimi Carter MD Aug 06, 2016 14:12
[2016-08-06] MEDS: GENTAMICIN SULFATE (DIALYSIS USE ONLY) 20 MG/2 ML VIAL OTHER PRN (14:21)
[2016-08-06] MEDS: SODIUM CHLOR 0.9% 1000 ML IV PRN (14:21)
[2016-08-06] MEDS: HEPARIN SODIUM - IV 10,000 UNITS/10 ML VIAL IVF PRN (14:22)
[2016-08-06] MEDS: SODIUM CHLORIDE 0.9% FLUSH 5 ML FLUSH IVF PRN (14:22)
[2016-08-06] MEDS: DAPTOMYCIN IV SCH (14:23)
[2016-08-06] MEDS: SODIUM CHLORIDE 0.9% IV SCH (14:23)
--- NOTE | 2016-08-06 14:56 | HHI.NPPN ---
Subjective History of Present Illness 30 year old female with drug OD, Rt thigh compartment syndrome s/p Fasciotomy, Rhabdomyolysis, ARF Additional Remarks Patient is alert, has pain in the Rt. leg. Review of Systems General Constitutional: Fatigue Musculoskeletal MS: Pain/Stiffness Objective Data Data 08/05/16 08/06/16 19:00 07:00 Intake Total 360 ml 240 ml Output Total 650 ml 1245 ml Balance -290 ml -1005 ml Intake Oral 360 ml 240 ml IV Total 0 ml 0 ml Output Urine Total 150 ml 420 ml Drainage Total 500 ml 825 ml # Bowel Movements 0 0 # Sanitary Pads 1 Pads Vital Signs Date Time Temp Pulse Resp B/P Pulse Ox O2 Delivery O2 Flow Rate FiO2 08/06/16 13:15 98.1 82 15 124/77 95 Room Air 08/06/16 13:00 81 15 119/87 99 Nasal Cannula 3 08/06/16 12:46 98.1 87 15 104/74 93 Nasal Cannula 3 08/06/16 08:00 98.0 94 19 117/71 95 08/06/16 04:00 98.8 95 20 123/74 96 08/06/16 02:02 18 08/05/16 23:55 16 08/05/16 23:24 98.9 98 20 121/78 96 08/05/16 20:50 Room Air 08/05/16 20:50 87 08/05/16 20:00 96.8 87 21 120/77 95 08/05/16 16:00 99.1 98 20 114/68 95 -: 08/05/16 1448 08/05/16 0454 Physical Exam General Appearance: No Acute Distress, Comfortable Neck Neck Exam: Neck Supple Pulmonary Resp Exam: Clear Bilaterally, Breath Sounds Equal Cardiology CV Exam: Regular, Normal Sinus Rhythm Gastrointestinal/Abdomen GI Exam: Soft, Non-Tender, Bowel Sounds Present Extremeties Extremities Exam: Trace Edema Extremeties Remarks Rt thigh vacuum dressing Neurologic Neuro Exam: Alert, Awake Assessment/Plan Problem List: (1) Acute kidney failure Plan: This is likely due to rhabdomyolysis and acute tubular necrosis increased drainage via leg Daptomycin 440 mg IV with hemodialysis and Levaquin s/p cleaning of wound rt leg HD seen during hemodialysis 4 K/HCO3 UF 1 L Follow urine out put and BMP. (2) Compartment syndrome of right lower extremity Plan: Status post surgery (3) UTI (urinary tract infection) Plan: On Levaquin (4) Severe sepsis Plan: Status post fasciotomy right leg (5) Small right middle lobe consolidation Plan: On antibiotics Problem Qualifiers (1) Acute kidney failure: Qualified Code: N17.9 - Acute renal failure, unspecified acute renal failure type Vinny Fletcher MD Aug 06, 2016 14:56
--- NOTE | 2016-08-06 18:54 | HHI.PR ---
Subjective Remarks c/o right thigh pain sp hemodialysis denies cp/sob denies fevers/chills no diarrhea Objective Vitals Vital Signs Date Time Temp Pulse Resp B/P Pulse Ox O2 Delivery O2 Flow Rate FiO2 08/06/16 13:15 98.1 82 15 124/77 95 Room Air 08/06/16 13:00 81 15 119/87 99 Nasal Cannula 3 08/06/16 12:46 98.1 87 15 104/74 93 Nasal Cannula 3 08/06/16 08:00 98.0 94 19 117/71 95 08/06/16 04:00 98.8 95 20 123/74 96 08/06/16 02:02 18 08/05/16 23:55 16 08/05/16 23:24 98.9 98 20 121/78 96 08/05/16 20:50 Room Air 08/05/16 20:50 87 08/05/16 20:00 96.8 87 21 120/77 95 I/O 08/05/16 08/05/16 08/05/16 08/06/16 08/06/16 08/06/16 06:59 14:59 22:59 06:59 14:59 22:59 Intake Total 320 ml 360 ml 120 ml 120 ml 1100 ml Output Total 700 ml 650 ml 620 ml 625 ml 670 ml 1000 ml Balance -380 ml -290 ml -500 ml -505 ml 430 ml -1000 ml Intake Oral 320 ml 360 ml 120 ml 120 ml 0 ml IV Total 0 ml 0 ml 0 ml 0 ml Other 1100 ml Output Urine Total 100 ml 150 ml 120 ml 300 ml 320 ml Drainage Total 600 ml 500 ml 500 ml 325 ml 300 ml Hemodialysis 1000 ml Estimated Blood Loss 50 ml # Bowel Movements 0 0 0 0 0 # Sanitary Pads 1 Pads 1 Pads Result Diagram: 08/05/16 1448 08/05/16 0454 Imaging Last Impressions Catheter Placement X-Ray 07/30/16 0000 Signed Impressions: Service Date/Time: Saturday, July 30, 2016 14:14 - CONCLUSION: Uncomplicated line placement as above. Judson Cee MD Brain MRI 07/29/16 0000 Signed Impressions: Service Date/Time: July 13:34 - CONCLUSION: 1. Abnormal examination of the brain demonstrating areas of T2 signal and abnormal diffusion signal involving the globus pallidus bilaterally and the mesial temporal lobes bilaterally. Primary considerations would include carbon monoxide poisoning versus other partial anoxic brain injury. Please see above discussion. Aamir Narayanan MD Chest X-Ray 07/27/16 0000 Signed Impressions: Service Date/Time: Wednesday, July 27, 2016 04:29 - CONCLUSION: Possible interval development of mild interstitial process possibly pulmonary edema and slight left lung base atelectasis. Kathy Berry MD Abdomen Ultrasound 07/26/16 0000 Signed Impressions: Service Date/Time: Tuesday, July 26, 2016 10:21 - CONCLUSION: 1. Small amount of free fluid adjacent to the lower poles of both kidneys. 2. Obscuration of the head of the pancreas, distal IVC and aorta due to overlying bowel gas. 3. Otherwise negative. Judson Cee MD Lower Extremity CT 07/25/16 0000 Signed Impressions: Service Date/Time: Monday, July 25, 2016 18:54 - CONCLUSION: Extensive nonspecific myositis of the right thigh, also involves gluteus medius and minimus proximally and at least medial gastrocnemius below the knee. Infectious/inflammatory and ischemic etiologies would be in the differential. No gas bubbles are seen to substantiate necrotizing fasciitis. No organized/drainable abscess. Glenroy Sheffield MD Hip and Pelvis X-Ray 07/25/16 0000 Signed Impressions: Service Date/Time: Monday, July 25, 2016 16:52 - CONCLUSION: Intact pelvis and right hip. Nonspecific surrounding soft tissue swelling Glenroy Sheffield MD Head CT 07/25/16 0000 Signed Impressions: Service Date/Time: Monday, July 25, 2016 14:38 - CONCLUSION: Negative noncontrast head CT. Glenroy Sheffield MD Chest CT 07/25/16 0000 Signed Impressions: Service Date/Time: Monday, July 25, 2016 16:37 - CONCLUSION: Focal dense consolidation right middle lobe, nonspecific but most likely infectious or inflammatory. Also a 3 mm right basilar pulmonary nodule Followup noncontrast chest CT in a few months recommended to confirm resolution/stability. Glenroy Sheffield MD Abdomen/Pelvis CT 07/25/16 0000 Signed Impressions: Service Date/Time: Monday, July 25, 2016 16:37 - CONCLUSION: 1. Fatty liver and 21 mm right ovarian cyst. Otherwise, no acute abnormality seen within the abdomen or pelvis. 2. Swollen, heterogeneous right hip musculature, primarily gluteus medius and minimus, rectus femoris and vastus lateralis and the adductor muscles. This is nonspecific but suggests a subacute hematoma of these structures. Nothing organized/measurable. 3. Chronic L5 pars defects with grade 2 L5/S1 spondylolisthesis. Glenroy Sheffield MD Objective Remarks GENERAL: 30-year-old female. Critically ill currently resting in bed in no acute distress CARDIOVASCULAR: RRR Faint systolic 2/6 murmur RESPIRATORY: clear to auscultation w no wheezing this morning. GASTROINTESTINAL: Abdomen soft, non-tender, nondistended. Hypoactive bowel sounds. Abrasions. MUSCULOSKELETAL: Right thigh currently with wound VAC lateral aspect. Right hip tender with restricted mobility. Positive peripheral edema right greater than left lower extremity. NEUROLOGICAL: Awake and alert to person, place and year. Motor grossly within normal limits. Procedures Status post right leg washout, senna graft placement and partial wound closure on 08/06. Medications and IVs Current Medications Medications (Trade) Dose Ordered Sig/Sara Route Start Time Stop Time Status Last Admin (NS Flush) 2 ml UNSCH PRN IV FLUSH 07/25/16 16:15 08/04/16 05:10 (NS Flush) 2 ml BID IV FLUSH 07/25/16 21:00 08/06/16 08:10 Miscellaneous Information 1 Q361D XX 07/25/16 16:15 (Chlorhexidine 2% Cloth) Taper DAILY@04 TOP 07/26/16 04:00 07/22/17 03:59 07/30/16 04:00 (Chlorhexidine 2% Cloth) 3 pack UNSCH PRN TOP 07/25/16 16:15 (Ecotrin Ec) 325 mg DAILY PO 07/26/16 09:00 08/05/16 08:30 (Morphine Inj) 4 mg Q2H PRN IV 07/25/16 23:45 08/05/16 21:10 (Theragran) 1 tab DAILY PO 07/26/16 09:00 08/06/16 08:08 (Folate) 1 mg DAILY PO 07/26/16 09:00 08/06/16 08:07 (Zofran Inj) 4 mg Q6H PRN IV 07/26/16 08:00 07/29/16 04:18 (D50w (Vial) Inj) 25 ml UNSCH PRN IV PUSH 07/26/16 08:15 (Glucagon Inj) 1 mg UNSCH PRN OTHER 07/26/16 08:15 (Xifaxan) 550 mg BID PO 07/26/16 10:00 08/06/16 08:08 (Apresoline Inj) 10 mg Q1HR PRN IV PUSH 07/28/16 09:30 08/01/16 09:30 (Nitroglycerin 2% Oint) 1 inch Q6H PRN TOPICAL 07/28/16 09:30 (Pepcid) 10 mg BID PO 07/29/16 09:00 08/06/16 08:09 (Pill Splitter) 1 ea UNSCH PRN OTHER 07/29/16 09:00 (Roxicodone) 5 mg Q6H PRN PO 07/29/16 09:00 08/06/16 18:08 (Lactulose Liq) 30 ml BID PO 07/30/16 21:00 08/05/16 21:11 (NS Flush) UNSCH PRN IVF 07/30/16 16:15 (Heparin Inj) UNSCH PRN IVF 07/30/16 16:15 08/06/16 14:22 Levofloxacin 500 mg 500 mg Q48H PO 07/30/16 22:00 08/05/16 21:10 (NS 1000 ml Inj) 1,000 ml @ 0 mls/hr TITRATE PRN IV 07/31/16 17:45 08/06/16 14:21 (Heparin Inj) 8,000 units UNSCH PRN IV FLUSH 07/31/16 17:45 08/04/16 10:10 Heparin Sodium (Porcine) 1000 units 1,000 units Q1H PRN IV FLUSH 07/31/16 17:45 Sodium Chloride 1,000 ml @ 200 mls/hr Q5H PRN IV 07/31/16 17:45 08/02/16 12:45 (NS 250 ml Inj) 200 ml @ 0 mls/hr UNSCH PRN IV 07/31/16 17:45 (Mannitol Inj) 12.5 gm UNSCH PRN IV 07/31/16 17:45 (Albumin 25% Inj) 25 gm UNSCH PRN IV 07/31/16 17:45 (NS Flush) 5 ml UNSCH PRN IVF 07/31/16 17:45 08/06/16 14:22 (Heparin Inj) Dwell Heparin to f... UNSCH PRN OTHER 07/31/16 17:45 (Gentamicin (Dialysis) Inj) 10 mg UNSCH PRN OTHER 07/31/16 17:45 08/06/16 14:21 (Gelfoam 12 Mm/7 Mm Top) 1 foam UNSCH PRN TOP 07/31/16 17:45 (Zofran Inj) 4 mg UNSCH PRN IV 07/31/16 17:45 (Benadryl) 25 mg UNSCH PRN PO 07/31/16 17:45 (Nitrostat Sl) 0.4 mg UNSCH PRN SL 07/31/16 17:45 (Catapres) 0.1 mg UNSCH PRN PO 07/31/16 17:45 (Catapres) 0.1 mg Q12HR PO 08/02/16 11:00 08/05/16 08:32 (Norvasc) 10 mg DAILY PO 08/03/16 09:00 08/04/16 12:27 Thiamine HCl 100 mg 100 mg DAILY PO 08/02/16 11:00 08/06/16 08:08 (Lr 1000 ml Inj) 1,000 ml @ 30 mls/hr Q24H IV 08/06/16 05:00 08/06/16 08:11 Miscellaneous Information ALL NURSING DEPARTME... UNSCH PRN XX 08/06/16 13:15 08/07/16 13:14 Urinary Catheter: No Vascular Central Line Catheter: No A/P Problem List: (1) Compartment syndrome of right lower extremity ICD Code: T79.A21A Status: Acute (2) Rhabdomyolysis ICD Code: M62.82 Status: Acute (3) Severe sepsis ICD Code: A41.9 Status: Acute (4) Altered mental status ICD Code: R41.82 Status: Acute (5) Drug overdose ICD Code: T50.901A Status: Acute (6) Elevated troponin ICD Code: R79.89 Status: Acute (7) Severe metabolic acidosis Status: Acute (8) Lactic acidosis ICD Code: E87.2 Status: Acute (9) Transaminitis ICD Code: R74.0 Status: Acute (10) Hypocalcemia ICD Code: E83.51 Status: Acute (11) Hyperkalemia ICD Code: E87.5 Status: Acute (12) ST elevation ICD Code: R94.31 Status: Acute (13) Acute kidney failure ICD Code: N17.9 Status: Acute (14) Leukocytosis ICD Code: D72.829 Status: Acute (15) Small right middle lobe consolidation Status: Acute (16) Hip hematoma, right ICD Code: S70.01XA Status: Acute Assessment and Plan NEURO: Altered mental status Polysubstance abuse with drug overdose including cocaine/heroin Right upper extremity numbness History of THC use EtOH -Continue to Watch for alcohol and drug withdrawal, Use PRN Ativan for anxiety and oxycodone/morphine as needed for pain -CT of the head 07/25 revealed no acute intracranial findings -on aspirin 325 mg daily for elevated troponin. Continue -switch Thiamine/multivitamin and folate to po daily -MRI brain 07/29 revealed T2 signal abnormality globus pallidus and mesial temporal lobe bilaterally. - EEG 07/30 revealed slowing system with moderate diffuse encephalopathy. No seizure activity. - Psychiatry clear to [facility] act 07/29 - neurology evaluated the patient and feels that MRI results are from drug overdose. GI getting ophthalmology consult for eval w slit lamp for Bre- Sylvia rings - 08/05 ophtalmology exam negative for Bre-Sylvia rings. RESP: Mild Respiratory insufficiency secondary to pneumonia/metabolic acidosis Small consolidation right middle lobe Right basilar pulmonary nodule 3 mm - follow-up CT chest 3 months recommended Ongoing tobaccoism -now on RA -Encouraged Incentive spirometry while awake -CT chest 07/25 revealed right middle lobe infiltrate along with 3 mm right basilar pulmonary nodule. -Chest x-ray 07/26 reveals no significant cardio pulmonary findings -DuoNeb every 2 hours when necessary -See ID section for broad-spectrum antibiotics CV: Elevated troponin Severe lactic acidosis - resolved ST elevation in V1 and V2 -HLIV -Lift Supervisor discussed extensively with Dr. Carter, pt does not meet criteria for STEMI -Continue aspirin 325 mg daily, will not use beta blockers due to cocaine abuse -2d echo revealed EF 60-65%. NRWMA. Lactic acid has cleared on Norvasc 10 mg daily for hypertension, 0.1 mg po BID, with as needed hydralazine and Nitropaste, d/c labetalol 08/05 BP stable. Continue Norvasc, clonidine. PRN hydralazine and nitropaste. GI: Transaminitis Rhabdomyolysis Hyperammonia -Transaminitis most likely secondary to shock/rhabdo -CT of the abdomen and pelvis shows fatty liver/21 mm right ovarian cyst -Negative hepatitis panel -Tolerating renal diet - Xifaxan 550 twice a day/lactulose 30 3 times a day for elevated ammonia. Recheck in AM 07/30 was 49. Recheck in a.m 08/01 was 46. - Noted low ceruloplasmin. 9. 24 hr Urine copper 24 -08/06 liver biopsy not done today. Recommended liver biopsy will be done on Tuesday. /Renal: Acute kidney failure Acute rhabdomyolysis - on normal saline down to 70cc an hour -07/26 renal ultrasound revealed fluid of at poles of bilateral kidneys otherwise negative - Strict intake output. - Urine electrolytes intrinsic renal process/urine eosinophils negative. - Nephrology following. Still making some urine but noted to be decreased by RN. getting HD - Noted decreased C3 of 19/C4 5 [employer]: Right ovarian cyst Beta hCG 1 ID: Severe sepsis Escherichia coli UTI -Source likely secondary to right thigh compartment syndrome -Previously on vancomycin and Zosyn day #6 - currently on Levaquin 500 milligrams every 48 day -Infectious disease following. Small consolidation in the right middle lobe unlikely to be source of severe sepsis Pertinent cultures 07/25 - blood cultures 2 -no growth 07/25 - urine culture -Escherichia coli HEME: Macrocytic anemia Thrombocytopenia -Monitor CBC, CMP, coags in a.m. - Transfused total 4 units PRBCs, 2 pack platelets, 2 FFP 2 cryo-since admission - Hb 7.3 today. monitor closely. transfuse if <7.0 ENDO: -Sliding-scale insulin if clinically indicated FEN: Replace electrolytes as clinically indicated. Currently on renal diet Msk: Right medial/lateral thigh compartment syndrome L5/S1 spondylolisthesis Status post day [address] Turner - wound VAC placement postop day 7 08/06 Status post cleaning of the wound of right leg. PROPH: -Left lower extremity SCDs. was on Heparin 5000 units subcutaneous twice a day but this has been held in light of decreasing platelet/bleeding Problem Qualifiers (1) Drug overdose: Qualified Code: T50.904A - Drug overdose, undetermined intent, initial encounter (2) Acute kidney failure: Qualified Code: N17.9 - Acute renal failure, unspecified acute renal failure type (3) Leukocytosis: Qualified Code: D72.829 - Leukocytosis, unspecified type Daniel Goncalves MD Aug 06, 2016 18:54
[2016-08-06 20:00] VITALS: BP 118/73; PULSE 97; RESP 20; TEMP 99.1; O2SAT 95
[2016-08-06 20:43] LABS: POTASSIUM 3.7 MEQ/L (3.5-5.1)
[2016-08-06 20:55] LABS: CALCIUM-PROTEIN CORRECTED 9.1 MG/DL (8.5-10.1)
[2016-08-07] VITALS (9 sets, daily range): BP systolic 102–132; BP diastolic 61–82; PULSE 80–92; RESP 14–20; TEMP 97.2–98.7; O2SAT 93–96
[2016-08-07 05:07] LABS: AUTOMATED NEUTROPHIL # 4.6 TH/MM3 (1.8-7.7); BASOPHIL % 0.5 % (0.0-2.0); EOSINOPHIL % 0.2 % (0.0-4.0); LYMPH % 14.4 % (9.0-44.0); LYMPHOCYTE # 0.9 TH/MM3 (1.0-4.8); MEAN CELL VOLUME 90.2 FL (80.0-100.0); MEAN CORPUSCULAR HEMOGLOBIN 31.6 PG (27.0-34.0); MONO % 9.7 % (0.0-8.0); NEUT % 75.2 % (16.0-70.0); PLATELET COUNT 96 TH/MM3 (150-450); RED BLOOD COUNT 2.03 MIL/MM3 (4.00-5.30); RED CELL DISTRIBUTION WIDTH 18.6 % (11.6-17.2); WHITE BLOOD COUNT 6.1 TH/MM3 (4.0-11.0)
[2016-08-07 05:17] LABS: HEMO FLAGS AUTO DIFF
[2016-08-07 05:19] LABS: HEMATOCRIT 18.3 % (35.0-46.0)
[2016-08-07 05:46] LABS: BICARBONATE 31.4 MEQ/L (21.0-32.0); CALCIUM-PROTEIN CORRECTED 9.5 MG/DL (8.5-10.1); POTASSIUM 3.5 MEQ/L (3.5-5.1); TOTAL BILIRUBIN ADULT 0.4 MG/DL (0.2-1.0)
[2016-08-07] MEDS ORDERED: SODIUM CHLOR 0.9% 250 ML INJ 250 ML IV ONE (06:00)
[2016-08-07] MEDS: THIAMINE HCL 100 MG TAB PO SCH (08:01)
[2016-08-07] MEDS: FOLIC ACID 1 MG TAB PO SCH (08:01)
[2016-08-07] MEDS: RIFAXIMIN 550 MG TAB PO SCH ×2 (08:01→20:12)
[2016-08-07] MEDS: FAMOTIDINE 20 MG TAB PO SCH ×2 (08:01→20:13)
[2016-08-07] MEDS: MULTIVITAMIN TAB PO SCH (08:01)
[2016-08-07] MEDS: cloNIDine HCL 0.1 MG TAB PO SCH ×2 (08:02→20:13)
[2016-08-07] MEDS: ASPIRIN EC 325 MG TABEC PO SCH (08:02)
[2016-08-07] MEDS: LACTULOSE SYRUP 20 GM/30 ML CUP PO SCH ×2 (08:03→20:14)
[2016-08-07] MEDS: SODIUM CHLORIDE 0.9% FLUSH 5 ML FLUSH IV FLUSH SCH ×2 (08:06→20:13)
[2016-08-07 08:45] LABS: HELMET CELLS OCC (NORMAL); KERATOCYTES OCC (NORMAL); PLATELET ESTIMATE SMEAR LOW (NORMAL); PLATELET MORPHOLOGY NORMAL (NORMAL); SCAN/DIFF AUTO DIFF CONFIRMED
--- NOTE | 2016-08-07 08:54 | PD.CARD.PN ---
Subjective Subjective Remarks alert in nad Objective Vital Signs / I&O Vital Signs Date Time Temp Pulse Resp B/P Pulse Ox O2 Delivery O2 Flow Rate FiO2 08/07/16 08:00 98.3 86 16 104/61 95 08/07/16 04:00 98.1 89 20 114/73 96 08/07/16 00:00 98.6 88 20 110/65 93 08/06/16 20:00 99.1 97 20 118/73 95 08/06/16 13:15 98.1 82 15 124/77 95 Room Air 08/06/16 13:00 81 15 119/87 99 Nasal Cannula 3 08/06/16 12:46 98.1 87 15 104/74 93 Nasal Cannula 3 I/O 08/06/16 08/06/16 08/06/16 08/07/16 08/07/16 08/07/16 07:00 15:00 23:00 07:00 15:00 23:00 Intake Total 120 ml 1100 ml 480 ml 240 ml Output Total 625 ml 670 ml 1000 ml 1175 ml Balance -505 ml 430 ml -520 ml -935 ml Intake Oral 120 ml 0 ml 480 ml 240 ml IV Total 0 ml 0 ml 0 ml Other 1100 ml Output Urine Total 300 ml 320 ml 350 ml Drainage Total 325 ml 300 ml 825 ml Hemodialysis 1000 ml Estimated Blood Loss 50 ml # Bowel Movements 0 0 1 # Sanitary Pads 1 Pads Physical Exam GENERAL: SKIN: Warm and dry. HEAD: Normocephalic. EYES: No scleral icterus. No injection or drainage. NECK: Supple, trachea midline. No JVD or lymphadenopathy. CARDIOVASCULAR: Regular rate and rhythm without murmurs, gallops, or rubs. RESPIRATORY: Breath sounds equal bilaterally. No accessory muscle use. GASTROINTESTINAL: Abdomen soft, non-tender, nondistended. MUSCULOSKELETAL: No cyanosis, or edema. BACK: Nontender without obvious deformity. No CVA tenderness. GENERAL: SKIN: Warm and dry. HEAD: Normocephalic. EYES: No scleral icterus. No injection or drainage. NECK: Supple, trachea midline. No JVD or lymphadenopathy. CARDIOVASCULAR: Regular rate and rhythm without murmurs, gallops, or rubs. RESPIRATORY: Breath sounds equal bilaterally. No accessory muscle use. GASTROINTESTINAL: Abdomen soft, non-tender, nondistended. MUSCULOSKELETAL: No cyanosis, or edema. BACK: Nontender without obvious deformity. No CVA tenderness. Laboratory Laboratory Tests Test 08/06/16 08/07/16 19:54 04:12 Sodium Level 137 MEQ/L 137 MEQ/L Potassium Level 3.7 MEQ/L 3.5 MEQ/L Chloride Level 98 MEQ/L 99 MEQ/L Carbon Dioxide Level 31.0 MEQ/L 31.4 MEQ/L Anion Gap 8 MEQ/L 7 MEQ/L Blood Urea Nitrogen 15 MG/DL 18 MG/DL Creatinine 3.37 MG/DL 3.77 MG/DL Estimat Glomerular Filtration 16 ML/MIN 14 ML/MIN Rate Random Glucose 193 MG/DL 89 MG/DL Calcium Level 7.3 MG/DL 7.4 MG/DL Protein Corrected Calcium 9.1 MG/DL 9.5 MG/DL Total Creatine Kinase 162 U/L 118 U/L Total Protein 4.0 GM/DL 3.6 GM/DL White Blood Count 6.1 TH/MM3 Red Blood Count 2.03 MIL/MM3 Hemoglobin 6.4 GM/DL Hematocrit 18.3 % Mean Corpuscular Volume 90.2 FL Mean Corpuscular Hemoglobin 31.6 PG Mean Corpuscular Hemoglobin 35.0 % Concent Red Cell Distribution Width 18.6 % Platelet Count 96 TH/MM3 Mean Platelet Volume 9.4 FL Neutrophils (%) (Auto) 75.2 % Lymphocytes (%) (Auto) 14.4 % Monocytes (%) (Auto) 9.7 % Eosinophils (%) (Auto) 0.2 % Basophils (%) (Auto) 0.5 % Neutrophils # (Auto) 4.6 TH/MM3 Lymphocytes # (Auto) 0.9 TH/MM3 Monocytes # (Auto) 0.6 TH/MM3 Eosinophils # (Auto) 0.0 TH/MM3 Basophils # (Auto) 0.0 TH/MM3 CBC Comment AUTO DIFF Differential Comment AUTO DIFF CONFIRMED Platelet Estimate LOW Platelet Morphology Comment NORMAL Helmet Cells OCC Keratocytes OCC Total Bilirubin 0.4 MG/DL Aspartate Amino Transf 32 U/L (AST/SGOT) Alanine Aminotransferase 30 U/L (ALT/SGPT) Alkaline Phosphatase 52 U/L Albumin 1.5 GM/DL Assessment and Plan Problem List: (1) Drug overdose (2) Hypocalcemia (3) SIRS (systemic inflammatory response syndrome) (4) Renal failure (5) Hyperkalemia (6) Lactic acidosis (7) Altered mental status (8) Severe sepsis (9) Elevated troponin (10) Severe metabolic acidosis (11) Acute kidney failure (12) Leukocytosis (13) Hip hematoma, right (14) Small right middle lobe consolidation (15) Rhabdomyolysis (16) Compartment syndrome of right lower extremity Assessment and Plan 1.) Elevated troponin - suspect d/t global hypoperfusion d/t hypotension form sepsis, ef=65%, patient is assymptomatic, trop < 1, on aspirin 325 mg qd 2.) POD 9 - hemodynamically stable 3.) ARF - d/t rhabdomyolysis from compartment syndrome, dialysis per dr Fletcher, making small amounts of urine 4.) HTN - started on amlodipine 10 mg qd 5.) RLE pain - slight improvement 6.) Anemia - transfuse prn hgb<7 Problem Qualifiers (1) Drug overdose: Qualified Code: T50.904A - Drug overdose, undetermined intent, initial encounter (2) Acute kidney failure: Qualified Code: N17.9 - Acute renal failure, unspecified acute renal failure type (3) Leukocytosis: Qualified Code: D72.829 - Leukocytosis, unspecified type Luis Eduardo Carter MD Aug 07, 2016 08:54
--- NOTE | 2016-08-07 10:33 | HHI.PR ---
Subjective Remarks fu compartment syndrome, lan, rhabdomyolisis, sepsis, metabolic acidosis patient feels very tired c/o soreness in right thigh denies fevers/chills denies cp/sob denies cough no diarrhea no rash vital signs stable Objective Vitals Vital Signs Date Time Temp Pulse Resp B/P Pulse Ox O2 Delivery O2 Flow Rate FiO2 08/07/16 10:11 98.7 86 16 102/67 95 08/07/16 08:00 98.3 86 16 104/61 95 08/07/16 04:00 98.1 89 20 114/73 96 08/07/16 00:00 98.6 88 20 110/65 93 08/06/16 20:00 99.1 97 20 118/73 95 08/06/16 13:15 98.1 82 15 124/77 95 Room Air 08/06/16 13:00 81 15 119/87 99 Nasal Cannula 3 08/06/16 12:46 98.1 87 15 104/74 93 Nasal Cannula 3 I/O 08/06/16 08/06/16 08/06/16 08/07/16 08/07/16 08/07/16 06:59 14:59 22:59 06:59 14:59 22:59 Intake Total 120 ml 1100 ml 480 ml 240 ml Output Total 625 ml 670 ml 1000 ml 1175 ml Balance -505 ml 430 ml -520 ml -935 ml Intake Oral 120 ml 0 ml 480 ml 240 ml IV Total 0 ml 0 ml 0 ml Other 1100 ml Output Urine Total 300 ml 320 ml 350 ml Drainage Total 325 ml 300 ml 825 ml Hemodialysis 1000 ml Estimated Blood Loss 50 ml # Bowel Movements 0 0 1 # Sanitary Pads 1 Pads Result Diagram: 08/07/16 0412 08/07/16 0412 Imaging Last Impressions Catheter Placement X-Ray 07/30/16 0000 Signed Impressions: Service Date/Time: Saturday, July 30, 2016 14:14 - CONCLUSION: Uncomplicated line placement as above. Judson Cee MD Brain MRI 07/29/16 0000 Signed Impressions: Service Date/Time: July 13:34 - CONCLUSION: 1. Abnormal examination of the brain demonstrating areas of T2 signal and abnormal diffusion signal involving the globus pallidus bilaterally and the mesial temporal lobes bilaterally. Primary considerations would include carbon monoxide poisoning versus other partial anoxic brain injury. Please see above discussion. Aamir Narayanan MD Chest X-Ray 07/27/16 0000 Signed Impressions: Service Date/Time: Wednesday, July 27, 2016 04:29 - CONCLUSION: Possible interval development of mild interstitial process possibly pulmonary edema and slight left lung base atelectasis. Kathy Berry MD Abdomen Ultrasound 07/26/16 0000 Signed Impressions: Service Date/Time: Tuesday, July 26, 2016 10:21 - CONCLUSION: 1. Small amount of free fluid adjacent to the lower poles of both kidneys. 2. Obscuration of the head of the pancreas, distal IVC and aorta due to overlying bowel gas. 3. Otherwise negative. Judson Cee MD Lower Extremity CT 07/25/16 0000 Signed Impressions: Service Date/Time: Monday, July 25, 2016 18:54 - CONCLUSION: Extensive nonspecific myositis of the right thigh, also involves gluteus medius and minimus proximally and at least medial gastrocnemius below the knee. Infectious/inflammatory and ischemic etiologies would be in the differential. No gas bubbles are seen to substantiate necrotizing fasciitis. No organized/drainable abscess. Glenroy Sheffield MD Hip and Pelvis X-Ray 07/25/16 0000 Signed Impressions: Service Date/Time: Monday, July 25, 2016 16:52 - CONCLUSION: Intact pelvis and right hip. Nonspecific surrounding soft tissue swelling Glenroy Sheffield MD Head CT 07/25/16 0000 Signed Impressions: Service Date/Time: Monday, July 25, 2016 14:38 - CONCLUSION: Negative noncontrast head CT. Glenroy Sheffiedl MD Chest CT 07/25/16 0000 Signed Impressions: Service Date/Time: Monday, July 25, 2016 16:37 - CONCLUSION: Focal dense consolidation right middle lobe, nonspecific but most likely infectious or inflammatory. Also a 3 mm right basilar pulmonary nodule Followup noncontrast chest CT in a few months recommended to confirm resolution/stability. Glenroy Sheffield MD Abdomen/Pelvis CT 07/25/16 0000 Signed Impressions: Service Date/Time: Monday, July 25, 2016 16:37 - CONCLUSION: 1. Fatty liver and 21 mm right ovarian cyst. Otherwise, no acute abnormality seen within the abdomen or pelvis. 2. Swollen, heterogeneous right hip musculature, primarily gluteus medius and minimus, rectus femoris and vastus lateralis and the adductor muscles. This is nonspecific but suggests a subacute hematoma of these structures. Nothing organized/measurable. 3. Chronic L5 pars defects with grade 2 L5/S1 spondylolisthesis. Glenroy Sheffield MD Objective Remarks GENERAL: 30-year-old female. Critically ill currently resting in bed in no acute distress CARDIOVASCULAR: RRR Faint systolic 2/6 murmur RESPIRATORY: clear to auscultation w no wheezing this morning. GASTROINTESTINAL: Abdomen soft, non-tender, nondistended. Hypoactive bowel sounds. Abrasions. MUSCULOSKELETAL: Right thigh currently with wound VAC lateral aspect. Right hip tender with restricted mobility. Positive peripheral edema right greater than left lower extremity. NEUROLOGICAL: Awake and alert to person, place and year. Motor grossly within normal limits. Procedures Status post right leg washout, senna graft placement and partial wound closure on 08/06. Medications and IVs Current Medications Medications (Trade) Dose Ordered Sig/Sara Route Start Time Stop Time Status Last Admin (NS Flush) 2 ml UNSCH PRN IV FLUSH 07/25/16 16:15 08/04/16 05:10 (NS Flush) 2 ml BID IV FLUSH 07/25/16 21:00 08/07/16 08:06 Miscellaneous Information 1 Q361D XX 07/25/16 16:15 (Chlorhexidine 2% Cloth) Taper DAILY@04 TOP 07/26/16 04:00 07/22/17 03:59 07/30/16 04:00 (Chlorhexidine 2% Cloth) 3 pack UNSCH PRN TOP 07/25/16 16:15 (Ecotrin Ec) 325 mg DAILY PO 07/26/16 09:00 08/07/16 08:02 (Morphine Inj) 4 mg Q2H PRN IV 07/25/16 23:45 08/05/16 21:10 (Theragran) 1 tab DAILY PO 07/26/16 09:00 08/07/16 08:01 (Folate) 1 mg DAILY PO 07/26/16 09:00 08/07/16 08:01 (Zofran Inj) 4 mg Q6H PRN IV 07/26/16 08:00 07/29/16 04:18 (D50w (Vial) Inj) 25 ml UNSCH PRN IV PUSH 07/26/16 08:15 (Glucagon Inj) 1 mg UNSCH PRN OTHER 07/26/16 08:15 (Xifaxan) 550 mg BID PO 07/26/16 10:00 08/07/16 08:01 (Apresoline Inj) 10 mg Q1HR PRN IV PUSH 07/28/16 09:30 08/01/16 09:30 (Nitroglycerin 2% Oint) 1 inch Q6H PRN TOPICAL 07/28/16 09:30 (Pepcid) 10 mg BID PO 07/29/16 09:00 08/07/16 08:01 (Pill Splitter) 1 ea UNSCH PRN OTHER 07/29/16 09:00 (Roxicodone) 5 mg Q6H PRN PO 07/29/16 09:00 08/07/16 06:23 (Lactulose Liq) 30 ml BID PO 07/30/16 21:00 08/07/16 08:03 (NS Flush) UNSCH PRN IVF 07/30/16 16:15 (Heparin Inj) UNSCH PRN IVF 07/30/16 16:15 08/06/16 14:22 Levofloxacin 500 mg 500 mg Q48H PO 07/30/16 22:00 08/05/16 21:10 (NS 1000 ml Inj) 1,000 ml @ 0 mls/hr TITRATE PRN IV 07/31/16 17:45 08/06/16 14:21 (Heparin Inj) 8,000 units UNSCH PRN IV FLUSH 07/31/16 17:45 08/04/16 10:10 Heparin Sodium (Porcine) 1000 units 1,000 units Q1H PRN IV FLUSH 07/31/16 17:45 Sodium Chloride 1,000 ml @ 200 mls/hr Q5H PRN IV 07/31/16 17:45 08/02/16 12:45 (NS 250 ml Inj) 200 ml @ 0 mls/hr UNSCH PRN IV 07/31/16 17:45 (Mannitol Inj) 12.5 gm UNSCH PRN IV 07/31/16 17:45 (Albumin 25% Inj) 25 gm UNSCH PRN IV 07/31/16 17:45 (NS Flush) 5 ml UNSCH PRN IVF 07/31/16 17:45 08/06/16 14:22 (Heparin Inj) Dwell Heparin to f... UNSCH PRN OTHER 07/31/16 17:45 (Gentamicin (Dialysis) Inj) 10 mg UNSCH PRN OTHER 07/31/16 17:45 08/06/16 14:21 (Gelfoam 12 Mm/7 Mm Top) 1 foam UNSCH PRN TOP 07/31/16 17:45 (Zofran Inj) 4 mg UNSCH PRN IV 07/31/16 17:45 (Benadryl) 25 mg UNSCH PRN PO 07/31/16 17:45 (Nitrostat Sl) 0.4 mg UNSCH PRN SL 07/31/16 17:45 (Catapres) 0.1 mg UNSCH PRN PO 07/31/16 17:45 (Catapres) 0.1 mg Q12HR PO 08/02/16 11:00 08/07/16 08:02 (Norvasc) 10 mg DAILY PO 08/03/16 09:00 08/07/16 08:01 Thiamine HCl 100 mg 100 mg DAILY PO 08/02/16 11:00 08/07/16 08:01 (Lr 1000 ml Inj) 1,000 ml @ 30 mls/hr Q24H IV 08/06/16 05:00 08/06/16 08:11 Miscellaneous Information ALL NURSING DEPARTME... UNSCH PRN XX 08/06/16 13:15 08/07/16 13:14 (NS 250 ml Inj) 250 ml @ 15 mls/hr ONCE ONCE IV 08/07/16 06:00 08/07/16 22:39 Urinary Catheter: Yes Assessment to: Continue Sinclair insert reason: Measure Accurate Output Vascular Central Line Catheter: No A/P Problem List: (1) Compartment syndrome of right lower extremity ICD Code: T79.A21A Status: Acute (2) Rhabdomyolysis ICD Code: M62.82 Status: Resolved (3) Severe sepsis ICD Code: A41.9 Status: Resolved (4) Altered mental status ICD Code: R41.82 Status: Resolved (5) Drug overdose ICD Code: T50.901A Status: Resolved (6) Elevated troponin ICD Code: R79.89 Status: Resolved (7) Severe metabolic acidosis Status: Resolved (8) Lactic acidosis ICD Code: E87.2 Status: Resolved (9) Transaminitis ICD Code: R74.0 Status: Acute (10) Hypocalcemia ICD Code: E83.51 Status: Acute (11) Hyperkalemia ICD Code: E87.5 Status: Acute (12) ST elevation ICD Code: R94.31 Status: Acute (13) Acute kidney failure ICD Code: N17.9 Status: Acute (14) Leukocytosis ICD Code: D72.829 Status: Resolved (15) Small right middle lobe consolidation Status: Acute (16) Hip hematoma, right ICD Code: S70.01XA Status: Acute Assessment and Plan NEURO: Altered mental status Polysubstance abuse with drug overdose including cocaine/heroin Right upper extremity numbness History of THC use EtOH -Continue to Watch for alcohol and drug withdrawal, Use PRN Ativan for anxiety and oxycodone/morphine as needed for pain -CT of the head 07/25 revealed no acute intracranial findings -on aspirin 325 mg daily for elevated troponin. Continue -switch Thiamine/multivitamin and folate to po daily -MRI brain 07/29 revealed T2 signal abnormality globus pallidus and mesial temporal lobe bilaterally. - EEG 07/30 revealed slowing system with moderate diffuse encephalopathy. No seizure activity. - Psychiatry clear to [facility] act 07/29 - neurology evaluated the patient and feels that MRI results are from drug overdose. GI getting ophthalmology consult for eval w slit lamp for Bre- Sylvia rings - 08/05 ophtalmology exam negative for Bre-Sylvia rings. RESP: Mild Respiratory insufficiency secondary to pneumonia/metabolic acidosis Small consolidation right middle lobe Right basilar pulmonary nodule 3 mm - follow-up CT chest 3 months recommended Ongoing tobaccoism -now on RA -Encouraged Incentive spirometry while awake -CT chest 07/25 revealed right middle lobe infiltrate along with 3 mm right basilar pulmonary nodule. 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 Carter, pt does not meet criteria for STEMI -Continue aspirin 325 mg daily, will not use beta blockers due to cocaine abuse -2d echo revealed EF 60-65%. NRWMA. Lactic acid has cleared on Norvasc 10 mg daily for hypertension, 0.1 mg po BID, with as needed hydralazine and Nitropaste, d/c labetalol BP stable. Continue Norvasc, clonidine. PRN hydralazine and nitropaste. GI: Transaminitis Rhabdomyolysis Hyperammonia -Transaminitis most likely secondary to shock/rhabdo -CT of the abdomen and pelvis shows fatty liver/21 mm right ovarian cyst -Negative hepatitis panel -Tolerating renal diet - Xifaxan 550 twice a day/lactulose 30 3 times a day for elevated ammonia. Recheck in AM 07/30 was 49. Recheck in a.m 08/01 was 46. - Noted low ceruloplasmin. 9. 24 hr Urine copper 24 - Liver biopsy will be done on tuesday. /Renal: Acute kidney failure Acute rhabdomyolysis - on normal saline down to 70cc an hour -07/26 renal ultrasound revealed fluid of at poles of bilateral kidneys otherwise negative - Strict intake output. - Urine electrolytes intrinsic renal process/urine eosinophils negative. - Nephrology following. Still making some urine but noted to be decreased by RN. getting HD - Noted decreased C3 of 19/C4 5 - Creatinine stable 3.3 - 3.7, urine output seems to be improving. fu urine output, bmp, fu nephrology recommendations. - HD as per nephrology recommendations. [employer]NEQUIN [employer]ER: Right ovarian cyst Beta hCG 1 ID: Severe sepsis Escherichia coli UTI -Source likely secondary to right thigh compartment syndrome -Previously on vancomycin and Zosyn day #6 - currently on Levaquin 500 milligrams every 48 day -Infectious disease following. Small consolidation in the right middle lobe unlikely to be source of severe sepsis - 08/07 antibiotics as per ID - currently on Levaquin po and daptomycin Pertinent cultures 07/25 - blood cultures 2 -no growth 07/25 - urine culture -Escherichia coli 08/05 NGTD HEME: Macrocytic anemia Thrombocytopenia 08/07 Acute post op anemia/ acute blood loss anemia -Monitor CBC, CMP, - Transfused total 4 units PRBCs, 2 pack platelets, 2 FFP 2 cryo-since admission - Hb 7.3 today. monitor closely. transfuse if <7.0 - 08/07 hemoglobin dropped down to 6.4 after right leg washout. I will transfuse 2 units of packed blood cells. ENDO: -Sliding-scale insulin if clinically indicated FEN: Replace electrolytes as clinically indicated. Currently on renal diet Msk: Right medial/lateral thigh compartment syndrome L5/S1 spondylolisthesis Status post day [address] Turner - wound VAC placement postop day 7 08/06 Status post cleaning of the wound of right leg. PROPH: -Left lower extremity SCDs. Hold subcutaneous heparin given drop in hemoglobin. 08/07 - plan discussed with Dr. Brownlee, RN and patient Discharge Planning Continue to monitor in the medical/surgical floor. Problem Qualifiers (1) Drug overdose: Qualified Code: T50.904A - Drug overdose, undetermined intent, initial encounter (2) Acute kidney failure: Qualified Code: N17.9 - Acute renal failure, unspecified acute renal failure type (3) Leukocytosis: Qualified Code: D72.829 - Leukocytosis, unspecified type Daniel Goncalves MD Aug 07, 2016 10:33
--- NOTE | 2016-08-07 12:06 | PD.CAR.PN ---
CVT Progress Note Subjective/Hospital Course: Patient with clinical findings of medial and lateral thigh compartment syndrome For OR now Thanks Delaney 07/26/16 Patient underwent yesterday and medial and lateral fasciotomy of the thigh debridement Today she underwent washout the both, closure of the medial fasciotomy skin and wound VAC placement on lateral fasciotomy The lateral fasciotomy will need wound VAC for but 2 weeks and then this can be covered with the partial-thickness skin graft by plastic surgery 07/27/16 Status post the thigh compartment syndrome with medial and lateral fasciotomy of the right leg Yesterday patient went for washout closure and drainage of the medial fasciotomy site while the lateral fasciotomy from hip to the knee remains open Wound VAC in place Hemoglobin now stable and there is no other source of bleeding Patient was in active DIC and fibrinolysis for the first 48 hours and this is now abating Agree with blood and blood products administration Platelets remain stable and unless these drop on the 30,000 would probably not transfuse Patient can be out of bed and should be bearing weight on this leg as much as possible 07/28/16 CHAZ drainage from the medial closure of the thighs decreased but I will leave it in till the swelling decreases and the third space abates for otherwise patient will develop a seroma in this area Lateral incision now covered with a wound VAC is draining minimally Hemoglobin remains stable Plan Starting tomorrow will have wound care assist with changing wound VAC at the bedside and I will consult plastic surgery for grafting of the wound in the near future 07/29/16 Medial compartment is closed and drainage is minimal so we will DC CHAZ Lateral thigh compartment is open clean and we will start wound VAC changes today Eventually patient will go to the OR for another washout and perhaps little more closure of this area but for the most part she will need a skin grafting of this area 07/30/2016 Medial incision is clean and dry Lateral incision wound VAC has been changed yesterday and he looks nice and clean and granulating nicely Patient will need several wound VAC exchange to before graft can be placed in this area Continue care Patient can transfer to the floor from my point 08/05/16 The patient will undergo tomorrow placement of acellular matrix xenograft in the operating room Wound VAC will then remain on it for about 10 days and then after that patient can be grafted This procedure should take about 30 minutes and then patient will be able to go to rehabilitation or even [place] for about 10 days and then return to us for grafting 08/07/16 Patient underwent yesterday washout of her fasciotomy site of the right thigh with placement of a acellular xenograft to improve granulation and the allow for eventual partial-thickness skin graft placement The drainage from the wound VAC at this point will be copious considering the inflammatory reaction that the xenograft induces so this is expected. In addition patient dropped hemoglobin and will be given 2 units of blood The wound VAC will stay on for about 9 days at this point so patient can either stay in our hospital or be transferred possibly to [place] till the time comes to remove the wound VAC for it will have to be done in the operating room At that time area will be ready for grafting or he may need another 10 days of xenograft is a granulation is not sufficient I will consult Dr. Juares to see the patient for skin grafting when the time comes Objective: Vital Signs Date Time Temp Pulse Resp B/P Pulse Ox O2 Delivery O2 Flow Rate FiO2 08/07/16 10:33 98.4 80 16 103/68 94 08/07/16 10:11 98.7 86 16 102/67 95 08/07/16 08:00 98.3 86 16 104/61 95 08/07/16 04:00 98.1 89 20 114/73 96 08/07/16 00:00 98.6 88 20 110/65 93 08/06/16 20:00 99.1 97 20 118/73 95 08/06/16 13:15 98.1 82 15 124/77 95 Room Air 08/06/16 13:00 81 15 119/87 99 Nasal Cannula 3 08/06/16 12:46 98.1 87 15 104/74 93 Nasal Cannula 3 Labs: Laboratory Tests Test 08/07/16 08/07/16 08/07/16 04:12 07:45 10:16 White Blood Count 6.1 TH/MM3 (4.0-11.0) Red Blood Count 2.03 MIL/MM3 (4.00-5.30) Hemoglobin 6.4 GM/DL (11.6-15.3) Hematocrit 18.3 % (35.0-46.0) Mean Corpuscular Volume 90.2 FL (80.0-100.0) Mean Corpuscular Hemoglobin 31.6 PG (27.0-34.0) Mean Corpuscular Hemoglobin 35.0 % Concent (32.0-36.0) Red Cell Distribution Width 18.6 % (11.6-17.2) Platelet Count 96 TH/MM3 (150-450) Mean Platelet Volume 9.4 FL (7.0-11.0) Neutrophils (%) (Auto) 75.2 % (16.0-70.0) Lymphocytes (%) (Auto) 14.4 % (9.0-44.0) Monocytes (%) (Auto) 9.7 % (0.0-8.0) Eosinophils (%) (Auto) 0.2 % (0.0-4.0) Basophils (%) (Auto) 0.5 % (0.0-2.0) Neutrophils # (Auto) 4.6 TH/MM3 (1.8-7.7) Lymphocytes # (Auto) 0.9 TH/MM3 (1.0-4.8) Monocytes # (Auto) 0.6 TH/MM3 (0-0.9) Eosinophils # (Auto) 0.0 TH/MM3 (0-0.4) Basophils # (Auto) 0.0 TH/MM3 (0-0.2) CBC Comment AUTO DIFF Differential Comment AUTO DIFF CONFIRMED Platelet Estimate LOW (NORMAL) Platelet Morphology Comment NORMAL (NORMAL) Helmet Cells OCC (NORMAL) Keratocytes OCC (NORMAL) Sodium Level 137 MEQ/L (136-145) Potassium Level 3.5 MEQ/L (3.5-5.1) Chloride Level 99 MEQ/L (98-107) Carbon Dioxide Level 31.4 MEQ/L (21.0-32.0) Anion Gap 7 MEQ/L (5-15) Blood Urea Nitrogen 18 MG/DL (7-18) Creatinine 3.77 MG/DL (0.50-1.00) Estimat Glomerular Filtration 14 ML/MIN (>89) Rate Random Glucose 89 MG/DL (74-106) Calcium Level 7.4 MG/DL (8.5-10.1) Protein Corrected Calcium 9.5 MG/DL (8.5-10.1) Total Bilirubin 0.4 MG/DL (0.2-1.0) Aspartate Amino Transf 32 U/L (15-37) (AST/SGOT) Alanine Aminotransferase 30 U/L (10-53) (ALT/SGPT) Alkaline Phosphatase 52 U/L (45-117) Total Creatine Kinase 118 U/L (26-192) Total Protein 3.6 GM/DL (6.4-8.2) Albumin 1.5 GM/DL (3.4-5.0) Blood Type O POSITIVE Antibody Screen NEGATIVE Crossmatch Leukocyte-Reduced Leukocyte-Reduced Red Blood Red Blood Cells Cells Blood Bank Comment Result Diagram: 08/07/16 0412 08/07/16411 (1) Drug overdose (2) Hypocalcemia (3) SIRS (systemic inflammatory response syndrome) (4) Renal failure (5) Hyperkalemia (6) Lactic acidosis (7) Altered mental status (8) Severe sepsis (9) Elevated troponin (10) Severe metabolic acidosis (11) Acute kidney failure (12) Leukocytosis (13) Hip hematoma, right (14) Small right middle lobe consolidation (15) Rhabdomyolysis (16) Compartment syndrome of right lower extremity Problem Qualifiers (1) Drug overdose: Qualified Code: T50.904A - Drug overdose, undetermined intent, initial encounter (2) Acute kidney failure: Qualified Code: N17.9 - Acute renal failure, unspecified acute renal failure type (3) Leukocytosis: Qualified Code: D72.829 - Leukocytosis, unspecified type Saw Turner MD Aug 07, 2016 12:06
--- NOTE | 2016-08-07 14:24 | HHI.GIFU ---
Subjective Remarks Resting in bed. No n/v. No abdominal pain. Liver biopsy not done Tuesday because she went to the OR for washout of her fasciotomy site with placement of a acellular xenograft (Sangeeta Dixon) Objective Vitals I&O Vital Signs Date Time Temp Pulse Resp B/P Pulse Ox O2 Delivery O2 Flow Rate FiO2 08/07/16 14:05 97.5 92 15 105/81 94 08/07/16 13:53 97.4 85 14 107/74 94 08/07/16 12:00 97.8 84 17 108/67 95 08/07/16 10:33 98.4 80 16 103/68 94 08/07/16 10:11 98.7 86 16 102/67 95 08/07/16 08:00 98.3 86 16 104/61 95 08/07/16 04:00 98.1 89 20 114/73 96 08/07/16 00:00 98.6 88 20 110/65 93 08/06/16 20:00 99.1 97 20 118/73 95 I/O 08/06/16 08/06/16 08/06/16 08/07/16 08/07/16 08/07/16 07:00 15:00 23:00 07:00 15:00 23:00 Intake Total 120 ml 1100 ml 480 ml 240 ml 321 ml Output Total 625 ml 670 ml 1000 ml 1175 ml 275 ml Balance -505 ml 430 ml -520 ml -935 ml 46 ml Intake Oral 120 ml 0 ml 480 ml 240 ml IV Total 0 ml 0 ml 0 ml Packed Cells 321 ml Other 1100 ml Output Urine Total 300 ml 320 ml 350 ml Drainage Total 325 ml 300 ml 825 ml 275 ml Hemodialysis 1000 ml Estimated Blood Loss 50 ml # Bowel Movements 0 0 1 # Sanitary Pads 1 Pads Laboratory Laboratory Tests Test 08/06/16 08/07/16 08/07/16 08/07/16 19:54 04:12 07:45 10:16 Sodium Level 137 137 Potassium Level 3.7 3.5 Chloride Level 98 99 Carbon Dioxide Level 31.0 31.4 Anion Gap 8 7 Blood Urea Nitrogen 15 18 Creatinine 3.37 3.77 Estimat Glomerular Filtration 16 14 Rate Random Glucose 193 89 Calcium Level 7.3 7.4 Protein Corrected Calcium 9.1 9.5 Total Creatine Kinase 162 118 Total Protein 4.0 3.6 White Blood Count 6.1 Red Blood Count 2.03 Hemoglobin 6.4 Hematocrit 18.3 Mean Corpuscular Volume 90.2 Mean Corpuscular Hemoglobin 31.6 Mean Corpuscular Hemoglobin 35.0 Concent Red Cell Distribution Width 18.6 Platelet Count 96 Mean Platelet Volume 9.4 Neutrophils (%) (Auto) 75.2 Lymphocytes (%) (Auto) 14.4 Monocytes (%) (Auto) 9.7 Eosinophils (%) (Auto) 0.2 Basophils (%) (Auto) 0.5 Neutrophils # (Auto) 4.6 Lymphocytes # (Auto) 0.9 Monocytes # (Auto) 0.6 Eosinophils # (Auto) 0.0 Basophils # (Auto) 0.0 CBC Comment AUTO DIFF Differential Comment AUTO DIFF CONFIRMED Platelet Estimate LOW Platelet Morphology Comment NORMAL Helmet Cells OCC Keratocytes OCC Total Bilirubin 0.4 Aspartate Amino Transf 32 (AST/SGOT) Alanine Aminotransferase 30 (ALT/SGPT) Alkaline Phosphatase 52 Albumin 1.5 Blood Type O POSITIVE Antibody Screen NEGATIVE Crossmatch Leukocyte-Reduced Leukocyte-Reduced Red Blood Red Blood Cells Cells Blood Bank Comment Date/Time Procedure Status Source Growth 08/05/16 04:54 Mycobacterial Culture Received Blood Peripheral Pending 08/05/16 04:54 Aerobic Blood Culture - Preliminary Resulted Blood Peripheral NO GROWTH IN 2 DAYS 08/05/16 04:54 Anaerobic Blood Culture - Preliminary Resulted Blood Peripheral NO GROWTH IN 2 DAYS Imaging Last Impressions Catheter Placement X-Ray 07/30/16 0000 Signed Impressions: Service Date/Time: Saturday, July 30, 2016 14:14 - CONCLUSION: Uncomplicated line placement as above. Judson Cee MD Brain MRI 07/29/16 0000 Signed Impressions: Service Date/Time: July 13:34 - CONCLUSION: 1. Abnormal examination of the brain demonstrating areas of T2 signal and abnormal diffusion signal involving the globus pallidus bilaterally and the mesial temporal lobes bilaterally. Primary considerations would include carbon monoxide poisoning versus other partial anoxic brain injury. Please see above discussion. Aamir Narayanan MD Chest X-Ray 07/27/16 0000 Signed Impressions: Service Date/Time: Wednesday, July 27, 2016 04:29 - CONCLUSION: Possible interval development of mild interstitial process possibly pulmonary edema and slight left lung base atelectasis. Kathy Berry MD Abdomen Ultrasound 07/26/16 Signed Impressions: Service Date/Time: Tuesday, July 26, 2016 10:21 - CONCLUSION: 1. Small amount of free fluid adjacent to the lower poles of both kidneys. 2. Obscuration of the head of the pancreas, distal IVC and aorta due to overlying bowel gas. 3. Otherwise negative. Judson Cee MD Lower Extremity CT 07/25/16 0000 Signed Impressions: Service Date/Time: Monday, July 25, 2016 18:54 - CONCLUSION: Extensive nonspecific myositis of the right thigh, also involves gluteus medius and minimus proximally and at least medial gastrocnemius below the knee. Infectious/inflammatory and ischemic etiologies would be in the differential. No gas bubbles are seen to substantiate necrotizing fasciitis. No organized/drainable abscess. Glenroy Sheffield MD Hip and Pelvis X-Ray 07/25/16 Signed Impressions: Service Date/Time: Monday, July 25, 2016 16:52 - CONCLUSION: Intact pelvis and right hip. Nonspecific surrounding soft tissue swelling Glenroy Sheffield MD Head CT 07/25/16 0000 Signed Impressions: Service Date/Time: Monday, July 25, 2016 14:38 - CONCLUSION: Negative noncontrast head CT. Glenroy Sheffield MD Chest CT 07/25/16 0000 Signed Impressions: Service Date/Time: Monday, July 25, 2016 16:37 - CONCLUSION: Focal dense consolidation right middle lobe, nonspecific but most likely infectious or inflammatory. Also a 3 mm right basilar pulmonary nodule Followup noncontrast chest CT in a few months recommended to confirm resolution/stability. Glenroy Sheffield MD Abdomen/Pelvis CT 07/25/16 0000 Signed Impressions: Service Date/Time: Monday, July 25, 2016 16:37 - CONCLUSION: 1. Fatty liver and 21 mm right ovarian cyst. Otherwise, no acute abnormality seen within the abdomen or pelvis. 2. Swollen, heterogeneous right hip musculature, primarily gluteus medius and minimus, rectus femoris and vastus lateralis and the adductor muscles. This is nonspecific but suggests a subacute hematoma of these structures. Nothing organized/measurable. 3. Chronic L5 pars defects with grade 2 L5/S1 spondylolisthesis. Glenroy Sheffield MD Physical Exam CHEST: CTA CARDIAC: RRR ABDOMEN: Soft, nondistended, nontender; no hepatosplenomegaly; bowel sounds are present in all four quadrants. EXTREMITIES: No clubbing, cyanosis. Right thigh lateral wound with wound vac d/ i. RLE edema SKIN: Normal; no rash; no jaundice. FEED RESEARCH TECHNICIAN: No focal deficits; alert and oriented times three. (DixonSangeeta Kristivane COREAS) Assessment and Plan Plan ASSESSMENT: - Elevated LFTs, possibly combination of shocked liver and rhabdomyolysis. Abdomen Ultrasound (07/26/16)----> 1. Small amount of free fluid adjacent to the lower poles of both kidneys. 2. Obscuration of the head of the pancreas, distal IVC and aorta due to overlying bowel gas. 3. Otherwise negative. Abdomen/Pelvis CT (07/25/16)----> 1. Fatty liver and 21 mm right ovarian cyst. Otherwise, no acute abnormality seen within the abdomen or pelvis. 2. Swollen, heterogeneous right hip musculature, primarily gluteus medius and minimus, rectus femoris and vastus lateralis and the adductor muscles. This is nonspecific but suggests a subacute hematoma of these structures. Nothing organized/measurable. 3. Chronic L5 pars defects with grade 2 L5/S1 spondylolisthesis. Toxicology report---- > Acetaminophen less than 2.0, Salicylates less than 1.7, Ethyl alcohol 28, toxicology screen negative- although the patient reports that she does use pills and smoke marijuana. Hepatitis panel negative. She does have documented episodes of hypotension as well as rhabdomyolysis. JORY negative, ASMA negative, AMA negative, Ferritin 400, Iron saturation 81.4 (post transfusion), Ceruloplasmin 9, ALpha 1 Antitrypsin 95. 24 hour urine for copper 27, copper concentration 46- normal limits. 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 LFTs stable. Liver biopsy ordered, rescheduled for Tuesday because patient was in the OR on Tuesday. - Low Ceruloplasmin level 9. Brain MRI (07/29/16)----> 1. Abnormal examination of the brain demonstrating areas of T2 signal and abnormal diffusion signal involving the globus pallidus bilaterally and the mesial temporal lobes bilaterally. Primary considerations would include carbon monoxide poisoning versus other partial anoxic brain injury. Please see above discussion. Of note, Branden's disease was also mentioned in the differential. 24 hour urine for copper 27, copper concentration 46- normal limits. S/p ophthalmology slit lamp exam-----> normal exam. Liver biopsy. - Low Alpha 1 Antitrypsin 95. Rpt. high- 192, Phenotype MM - AMS, IMPROVED. Xifaxan, Lactulose. - Rhabdomyolysis. IMPROVED - Compartment syndrome, s/p fasciotomy, wound vac placement. Went to OR 08/06 for washout of her fasciotomy site of the right thigh with placement of a acellular xenograft - Sepsis, elevated lactic acid, likely t/t right thigh compartment syndrome. - Coagulopathy, IMPROVED - Anemia, stable - CARLITO, HD per renal Plan: - JACY - IR consulted for liver biopsy, rescheduled for Tuesday because patient went to OR yesterday - Monitor LFTs - Avoid hypotension - Avoid hepatotoxins - Supportive care - Further recommendations to follow based on results of above - PT seen and examined by Dr. Olguin and myself and this note is written on his behalf (Sangeeta Dixon) Physician Comments Seen and examined with Ms. Zack COREAS, Liver biopsy rescheduled for Tuesday, monitor labs. (Scooby Olguin MD) Sangeeta Dixon Aug 07, 2016 14:24 Scooby Olguin MD Aug 07, 2016 21:06
--- NOTE | 2016-08-07 14:28 | HHI.NPPN ---
Subjective History of Present Illness 30 year old female with drug OD, Rt thigh compartment syndrome s/p Fasciotomy, Rhabdomyolysis, ARF Additional Remarks Patient is alert, has pain in the Rt. leg. Review of Systems General Constitutional: Fatigue Musculoskeletal MS: Pain/Stiffness Objective Data Data 08/06/16 08/07/16 19:00 07:00 Intake Total 1100 ml 720 ml Output Total 1670 ml 1175 ml Balance -570 ml -455 ml Intake Oral 0 ml 720 ml IV Total 0 ml Other 1100 ml Output Urine Total 320 ml 350 ml Drainage Total 300 ml 825 ml Hemodialysis 1000 ml Estimated Blood Loss 50 ml # Bowel Movements 0 1 # Sanitary Pads 1 Pads Vital Signs Date Time Temp Pulse Resp B/P Pulse Ox O2 Delivery O2 Flow Rate FiO2 08/07/16 14:05 97.5 92 15 105/81 94 08/07/16 13:53 97.4 85 14 107/74 94 08/07/16 12:00 97.8 84 17 108/67 95 08/07/16 10:33 98.4 80 16 103/68 94 08/07/16 10:11 98.7 86 16 102/67 95 08/07/16 08:00 98.3 86 16 104/61 95 08/07/16 04:00 98.1 89 20 114/73 96 08/07/16 00:00 98.6 88 20 110/65 93 08/06/16 20:00 99.1 97 20 118/73 95 -: 08/07/16 0412 08/07/16 0412 Physical Exam General Appearance: No Acute Distress, Comfortable Neck Neck Exam: Neck Supple Pulmonary Resp Exam: Clear Bilaterally, Breath Sounds Equal Cardiology CV Exam: Regular, Normal Sinus Rhythm Gastrointestinal/Abdomen GI Exam: Soft, Non-Tender, Bowel Sounds Present Extremeties Extremities Exam: Trace Edema Extremeties Remarks Rt thigh vacuum dressing Neurologic Neuro Exam: Alert, Awake Assessment/Plan Problem List: (1) Acute kidney failure Plan: This is likely due to rhabdomyolysis and acute tubular necrosis increased drainage via leg Daptomycin 440 mg IV with hemodialysis and Levaquin s/p cleaning of wound rt leg PRBC as Hb dropped next HD Tuesday Follow urine out put and BMP. (2) Compartment syndrome of right lower extremity Plan: Status post surgery (3) UTI (urinary tract infection) Plan: On Levaquin (4) Severe sepsis Plan: Status post fasciotomy right leg (5) Small right middle lobe consolidation Plan: On antibiotics Problem Qualifiers (1) Acute kidney failure: Qualified Code: N17.9 - Acute renal failure, unspecified acute renal failure type Vinny Fletcher MD Aug 07, 2016 14:28
[2016-08-07 18:39] LABS: HEMATOCRIT 28.3 % (35.0-46.0); REVIEW FLAG FINAL
[2016-08-07 21:07] LABS: MEAN CORPUSCULAR HGB CONC 36.9 % (32.0-36.0)
[2016-08-07] MEDS: LEVOFLOXACIN 500 MG TAB PO SCH (21:24)
[2016-08-08] VITALS: BP 107/71; PULSE 82; RESP 20; TEMP 99; O2SAT 96
[2016-08-08] MEDS: CHLORHEXIDINE GLUCONATE 2 % 1 PACK (2 CLOTHS) TOP SCH (02:15)
[2016-08-08] MEDS: LACTATED RINGER'S 1000 ML IV SCH (02:15)
[2016-08-08 04:00] VITALS: BP 122/90; PULSE 87; RESP 20; TEMP 98.8; O2SAT 94
[2016-08-08 04:56] LABS: HEMATOCRIT 27.7 % (35.0-46.0); MEAN CELL VOLUME 87.5 FL (80.0-100.0); MEAN CORPUSCULAR HEMOGLOBIN 32.3 PG (27.0-34.0); PLATELET COUNT 123 TH/MM3 (150-450); RED BLOOD COUNT 3.16 MIL/MM3 (4.00-5.30); RED CELL DISTRIBUTION WIDTH 17.1 % (11.6-17.2)
[2016-08-08 05:03] LABS: REVIEW FLAG FINAL
[2016-08-08 05:15] LABS: BICARBONATE 32.3 MEQ/L (21.0-32.0); MAGNESIUM 1.6 MG/DL (1.5-2.5); POTASSIUM 3.5 MEQ/L (3.5-5.1)
[2016-08-08 08:00] VITALS: BP 119/78; PULSE 82; RESP 18; TEMP 98.5; O2SAT 95
[2016-08-08] MEDS: RIFAXIMIN 550 MG TAB PO SCH ×3 (08:40→21:18)
[2016-08-08] MEDS: cloNIDine HCL 0.1 MG TAB PO SCH ×2 (08:40→21:16)
[2016-08-08] MEDS: MULTIVITAMIN TAB PO SCH (08:40)
[2016-08-08] MEDS: FAMOTIDINE 20 MG TAB PO SCH ×3 (08:40→21:18)
[2016-08-08] MEDS: LACTULOSE SYRUP 20 GM/30 ML CUP PO SCH ×2 (08:40→21:16)
[2016-08-08] MEDS: THIAMINE HCL 100 MG TAB PO SCH (08:40)
[2016-08-08] MEDS: FOLIC ACID 1 MG TAB PO SCH (08:40)
[2016-08-08] MEDS: ASPIRIN EC 325 MG TABEC PO SCH (08:40)
[2016-08-08] MEDS: SODIUM CHLORIDE 0.9% FLUSH 5 ML FLUSH IV FLUSH SCH ×2 (08:43→21:17)
--- NOTE | 2016-08-08 08:49 | PD.CARD.PN ---
Subjective Subjective Remarks alert in nad Objective Vital Signs / I&O Vital Signs Date Time Temp Pulse Resp B/P Pulse Ox O2 Delivery O2 Flow Rate FiO2 08/08/16 08:00 98.5 82 18 119/78 95 08/08/16 04:00 98.8 87 20 122/90 94 08/08/16 00:00 99.0 82 20 107/71 96 08/07/16 21:24 18 08/07/16 20:00 97.2 91 20 132/82 94 08/07/16 14:05 97.5 92 15 105/81 94 08/07/16 13:53 97.4 85 14 107/74 94 08/07/16 12:00 97.8 84 17 108/67 95 08/07/16 10:33 98.4 80 16 103/68 94 08/07/16 10:11 98.7 86 16 102/67 95 I/O 08/07/16 08/07/16 08/07/16 08/08/16 08/08/16 08/08/16 06:59 14:59 22:59 06:59 14:59 22:59 Intake Total 240 ml 561 ml 120 ml 240 ml Output Total 1175 ml 625 ml 600 ml 600 ml Balance -935 ml -64 ml -480 ml -360 ml Intake Oral 240 ml 240 ml 120 ml 240 ml IV Total 0 ml 0 ml Packed Cells 321 ml Output Urine Total 350 ml 350 ml 300 ml 400 ml Drainage Total 825 ml 275 ml 300 ml 200 ml # Bowel Movements 0 1 Physical Exam GENERAL: SKIN: Warm and dry. HEAD: Normocephalic. EYES: No scleral icterus. No injection or drainage. NECK: Supple, trachea midline. No JVD or lymphadenopathy. CARDIOVASCULAR: Regular rate and rhythm without murmurs, gallops, or rubs. RESPIRATORY: Breath sounds equal bilaterally. No accessory muscle use. GASTROINTESTINAL: Abdomen soft, non-tender, nondistended. MUSCULOSKELETAL: No cyanosis, or edema. BACK: Nontender without obvious deformity. No CVA tenderness. GENERAL: SKIN: Warm and dry. HEAD: Normocephalic. EYES: No scleral icterus. No injection or drainage. NECK: Supple, trachea midline. No JVD or lymphadenopathy. CARDIOVASCULAR: Regular rate and rhythm without murmurs, gallops, or rubs. RESPIRATORY: Breath sounds equal bilaterally. No accessory muscle use. GASTROINTESTINAL: Abdomen soft, non-tender, nondistended. MUSCULOSKELETAL: No cyanosis, or edema. BACK: Nontender without obvious deformity. No CVA tenderness. Laboratory Laboratory Tests Test 08/07/16 08/07/16 08/08/16 10:16 18:19 04:19 Crossmatch Leukocyte-Reduced Red Blood Cells Blood Bank Comment Hemoglobin 10.1 GM/DL 10.2 GM/DL Hematocrit 28.3 % 27.7 % White Blood Count 9.0 TH/MM3 Red Blood Count 3.16 MIL/MM3 Mean Corpuscular Volume 87.5 FL Mean Corpuscular Hemoglobin 32.3 PG Mean Corpuscular Hemoglobin 36.9 % Concent Red Cell Distribution Width 17.1 % Platelet Count 123 TH/MM3 Mean Platelet Volume 8.6 FL Sodium Level 140 MEQ/L Potassium Level 3.5 MEQ/L Chloride Level 100 MEQ/L Carbon Dioxide Level 32.3 MEQ/L Anion Gap 8 MEQ/L Blood Urea Nitrogen 25 MG/DL Creatinine 4.78 MG/DL Estimat Glomerular Filtration 11 ML/MIN Rate Random Glucose 89 MG/DL Calcium Level 7.5 MG/DL Phosphorus Level 4.4 MG/DL Magnesium Level 1.6 MG/DL Assessment and Plan Problem List: (1) Drug overdose (2) Hypocalcemia (3) SIRS (systemic inflammatory response syndrome) (4) Renal failure (5) Hyperkalemia (6) Lactic acidosis (7) Altered mental status (8) Severe sepsis (9) Elevated troponin (10) Severe metabolic acidosis (11) Acute kidney failure (12) Leukocytosis (13) Hip hematoma, right (14) Small right middle lobe consolidation (15) Rhabdomyolysis (16) Compartment syndrome of right lower extremity Assessment and Plan 1.) Elevated troponin - suspect d/t global hypoperfusion d/t hypotension form sepsis, ef=65%, patient is assymptomatic, trop < 1, on aspirin 325 mg qd, d/t arf lhc/pci would be high risk for deterioration in renal function and potential need for temporary or permanent dialysis 2.) POD 9 - hemodynamically stable 3.) ARF - d/t rhabdomyolysis from compartment syndrome, dialysis per dr Fletcher, urine output @ 400 cc last shift 4.) HTN - started on amlodipine 10 mg qd 5.) RLE pain - slight improvement 6.) Anemia - transfuse prn hgb<7 Problem Qualifiers (1) Drug overdose: Qualified Code: T50.904A - Drug overdose, undetermined intent, initial encounter (2) Acute kidney failure: Qualified Code: N17.9 - Acute renal failure, unspecified acute renal failure type (3) Leukocytosis: Qualified Code: D72.829 - Leukocytosis, unspecified type Luis Eduardo Carter MD Aug 08, 2016 08:49
--- NOTE | 2016-08-08 09:24 | HHI.GIFU ---
Subjective Remarks Resting in bed. No n/v. No GI complaints. Has pain in right lower extremity. Just took pain meds. (Sangeeta Dixon) Objective Vitals I&O Vital Signs Date Time Temp Pulse Resp B/P Pulse Ox O2 Delivery O2 Flow Rate FiO2 08/08/16 08:00 98.5 82 18 119/78 95 08/08/16 04:00 98.8 87 20 122/90 94 08/08/16 00:00 99.0 82 20 107/71 96 08/07/16 21:24 18 08/07/16 20:00 97.2 91 20 132/82 94 08/07/16 14:05 97.5 92 15 105/81 94 08/07/16 13:53 97.4 85 14 107/74 94 08/07/16 12:00 97.8 84 17 108/67 95 08/07/16 10:33 98.4 80 16 103/68 94 08/07/16 10:11 98.7 86 16 102/67 95 I/O 08/07/16 08/07/16 08/07/16 08/08/16 08/08/16 08/08/16 06:59 14:59 22:59 06:59 14:59 22:59 Intake Total 240 ml 561 ml 120 ml 240 ml Output Total 1175 ml 625 ml 600 ml 600 ml Balance -935 ml -64 ml -480 ml -360 ml Intake Oral 240 ml 240 ml 120 ml 240 ml IV Total 0 ml 0 ml Packed Cells 321 ml Output Urine Total 350 ml 350 ml 300 ml 400 ml Drainage Total 825 ml 275 ml 300 ml 200 ml # Bowel Movements 0 1 Laboratory Laboratory Tests Test 08/07/16 08/07/16 08/08/16 10:16 18:19 04:19 Crossmatch Leukocyte-Reduced Red Blood Cells Blood Bank Comment Hemoglobin 10.1 10.2 Hematocrit 28.3 27.7 White Blood Count 9.0 Red Blood Count 3.16 Mean Corpuscular Volume 87.5 Mean Corpuscular Hemoglobin 32.3 Mean Corpuscular Hemoglobin 36.9 Concent Red Cell Distribution Width 17.1 Platelet Count 123 Mean Platelet Volume 8.6 Sodium Level 140 Potassium Level 3.5 Chloride Level 100 Carbon Dioxide Level 32.3 Anion Gap 8 Blood Urea Nitrogen 25 Creatinine 4.78 Estimat Glomerular Filtration 11 Rate Random Glucose 89 Calcium Level 7.5 Phosphorus Level 4.4 Magnesium Level 1.6 Date/Time Procedure Status Source Growth 08/05/16 04:54 Mycobacterial Culture Received Blood Peripheral Pending 08/05/16 04:54 Aerobic Blood Culture - Preliminary Resulted Blood Peripheral NO GROWTH IN 2 DAYS 08/05/16 04:54 Anaerobic Blood Culture - Preliminary Resulted Blood Peripheral NO GROWTH IN 2 DAYS Imaging Last Impressions Catheter Placement X-Ray 07/30/16 0000 Signed Impressions: Service Date/Time: Saturday, July 30, 2016 14:14 - CONCLUSION: Uncomplicated line placement as above. Judson Cee MD Brain MRI 07/29/16 0000 Signed Impressions: Service Date/Time: July 13:34 - CONCLUSION: 1. Abnormal examination of the brain demonstrating areas of T2 signal and abnormal diffusion signal involving the globus pallidus bilaterally and the mesial temporal lobes bilaterally. Primary considerations would include carbon monoxide poisoning versus other partial anoxic brain injury. Please see above discussion. Aamir Narayanan MD Chest X-Ray 07/27/16 0000 Signed Impressions: Service Date/Time: Wednesday, July 27, 2016 04:29 - CONCLUSION: Possible interval development of mild interstitial process possibly pulmonary edema and slight left lung base atelectasis. Kathy Berry MD Abdomen Ultrasound 07/26/16 0000 Signed Impressions: Service Date/Time: Tuesday, July 26, 2016 10:21 - CONCLUSION: 1. Small amount of free fluid adjacent to the lower poles of both kidneys. 2. Obscuration of the head of the pancreas, distal IVC and aorta due to overlying bowel gas. 3. Otherwise negative. Judson Cee MD Lower Extremity CT 07/25/16 0000 Signed Impressions: Service Date/Time: Monday, July 25, 2016 18:54 - CONCLUSION: Extensive nonspecific myositis of the right thigh, also involves gluteus medius and minimus proximally and at least medial gastrocnemius below the knee. Infectious/inflammatory and ischemic etiologies would be in the differential. No gas bubbles are seen to substantiate necrotizing fasciitis. No organized/drainable abscess. Glenroy Sheffield MD Hip and Pelvis X-Ray 07/25/16 0000 Signed Impressions: Service Date/Time: Monday, July 25, 2016 16:52 - CONCLUSION: Intact pelvis and right hip. Nonspecific surrounding soft tissue swelling Glenroy Sheffield MD Head CT 07/25/16 0000 Signed Impressions: Service Date/Time: Monday, July 25, 2016 14:38 - CONCLUSION: Negative noncontrast head CT. Glenroy Sheffield MD Chest CT 07/25/16 0000 Signed Impressions: Service Date/Time: Monday, July 25, 2016 16:37 - CONCLUSION: Focal dense consolidation right middle lobe, nonspecific but most likely infectious or inflammatory. Also a 3 mm right basilar pulmonary nodule Followup noncontrast chest CT in a few months recommended to confirm resolution/stability. Glenroy Sheffield MD Abdomen/Pelvis CT 07/25/16 0000 Signed Impressions: Service Date/Time: Monday, July 25, 2016 16:37 - CONCLUSION: 1. Fatty liver and 21 mm right ovarian cyst. Otherwise, no acute abnormality seen within the abdomen or pelvis. 2. Swollen, heterogeneous right hip musculature, primarily gluteus medius and minimus, rectus femoris and vastus lateralis and the adductor muscles. This is nonspecific but suggests a subacute hematoma of these structures. Nothing organized/measurable. 3. Chronic L5 pars defects with grade 2 L5/S1 spondylolisthesis. Glenroy Sheffield MD Physical Exam CHEST: CTA CARDIAC: RRR ABDOMEN: Soft, nondistended, nontender; no hepatosplenomegaly; bowel sounds are present in all four quadrants. EXTREMITIES: No clubbing, cyanosis. Right thigh lateral wound with wound vac d/ i. RLE edema SKIN: Normal; no rash; no jaundice. FISHER NET: No focal deficits; alert and oriented times three. (Sangeeta Dixon) Assessment and Plan Plan ASSESSMENT: - Elevated LFTs, possibly combination of shocked liver and rhabdomyolysis. Abdomen Ultrasound (07/26/16)----> 1. Small amount of free fluid adjacent to the lower poles of both kidneys. 2. Obscuration of the head of the pancreas, distal IVC and aorta due to overlying bowel gas. 3. Otherwise negative. Abdomen/Pelvis CT (07/25/16)----> 1. Fatty liver and 21 mm right ovarian cyst. Otherwise, no acute abnormality seen within the abdomen or pelvis. 2. Swollen, heterogeneous right hip musculature, primarily gluteus medius and minimus, rectus femoris and vastus lateralis and the adductor muscles. This is nonspecific but suggests a subacute hematoma of these structures. Nothing organized/measurable. 3. Chronic L5 pars defects with grade 2 L5/S1 spondylolisthesis. Toxicology report---- > Acetaminophen less than 2.0, Salicylates less than 1.7, Ethyl alcohol 28, toxicology screen negative- although the patient reports that she does use pills and smoke marijuana. Hepatitis panel negative. She does have documented episodes of hypotension as well as rhabdomyolysis. JORY negative, ASMA negative, AMA negative, Ferritin 400, Iron saturation 81.4 (post transfusion), Ceruloplasmin 9, ALpha 1 Antitrypsin 95. 24 hour urine for copper 27, copper concentration 46- normal limits. 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 LFTs stable. Liver biopsy ordered, rescheduled for Tuesday because patient was in the OR on Tuesday. - Low Ceruloplasmin level 9. Brain MRI (07/29/16)----> 1. Abnormal examination of the brain demonstrating areas of T2 signal and abnormal diffusion signal involving the globus pallidus bilaterally and the mesial temporal lobes bilaterally. Primary considerations would include carbon monoxide poisoning versus other partial anoxic brain injury. Please see above discussion. Of note, Branden's disease was also mentioned in the differential. 24 hour urine for copper 27, copper concentration 46- normal limits. S/p ophthalmology slit lamp exam-----> normal exam. Liver biopsy. - Low Alpha 1 Antitrypsin 95. Rpt. high- 192, Phenotype MM - AMS, IMPROVED. Xifaxan, Lactulose. - Rhabdomyolysis. IMPROVED - Compartment syndrome, s/p fasciotomy, wound vac placement. Went to OR 08/06 for washout of her fasciotomy site of the right thigh with placement of a acellular xenograft - Sepsis, elevated lactic acid, likely t/t right thigh compartment syndrome. - Coagulopathy, IMPROVED - Anemia, stable. S/P blood transfusion yesterday. H/H 10.2/.7. - CARLITO, HD per renal Plan: - JACY - IR consulted for liver biopsy, rescheduled for Tuesday because patient went to OR yesterday - Monitor LFTs - Monitor HH - Transfuse as necessary - Avoid hypotension - Avoid hepatotoxins - Supportive care - Further recommendations to follow based on results of above - PT seen and examined by Dr. Olguin and myself and this note is written on his behalf (Sangeeta Dixon) Physician Comments Await liver biopsy tomorrow. (Scooby Olguin MD) Sangeeta Dixon Aug 08, 2016 09:24 Scooby Olguin MD Aug 08, 2016 16:31
[2016-08-08 12:00] VITALS: BP 114/76; PULSE 78; RESP 17; TEMP 97.9; O2SAT 95
--- NOTE | 2016-08-08 14:07 | HHI.NPPN ---
Subjective History of Present Illness 30 year old female with drug OD, Rt thigh compartment syndrome s/p Fasciotomy, Rhabdomyolysis, ARF Additional Remarks Patient is alert, has pain in the Rt. leg. Review of Systems General Constitutional: Fatigue Musculoskeletal MS: Pain/Stiffness Objective Data Data 08/07/16 08/08/16 19:00 07:00 Intake Total 561 ml 360 ml Output Total 625 ml 1200 ml Balance -64 ml -840 ml Intake Oral 240 ml 360 ml IV Total 0 ml Packed Cells 321 ml Output Urine Total 350 ml 700 ml Drainage Total 275 ml 500 ml # Bowel Movements 0 1 Vital Signs Date Time Temp Pulse Resp B/P Pulse Ox O2 Delivery O2 Flow Rate FiO2 08/08/16 12:00 97.9 78 17 114/76 95 08/08/16 08:00 98.5 82 18 119/78 95 08/08/16 04:00 98.8 87 20 122/90 94 08/08/16 00:00 99.0 82 20 107/71 96 08/07/16 21:24 18 08/07/16 20:00 97.2 91 20 132/82 94 -: 08/08/16 0419 08/08/16 0419 Physical Exam General Appearance: No Acute Distress, Comfortable Neck Neck Exam: Neck Supple Pulmonary Resp Exam: Clear Bilaterally, Breath Sounds Equal Cardiology CV Exam: Regular, Normal Sinus Rhythm Gastrointestinal/Abdomen GI Exam: Soft, Non-Tender, Bowel Sounds Present Extremeties Extremities Exam: Trace Edema Extremeties Remarks Rt thigh vacuum dressing Neurologic Neuro Exam: Alert, Awake Assessment/Plan Problem List: (1) Acute kidney failure Plan: This is likely due to rhabdomyolysis and acute tubular necrosis increased drainage via leg Daptomycin 440 mg IV with hemodialysis and Levaquin s/p cleaning of wound rt leg PRBC as Hb dropped next HD Tuesday if creatinine still elevated Follow urine out put and BMP. (2) Compartment syndrome of right lower extremity Plan: Status post surgery (3) UTI (urinary tract infection) Plan: On Levaquin (4) Severe sepsis Plan: Status post fasciotomy right leg (5) Small right middle lobe consolidation Plan: On antibiotics Problem Qualifiers (1) Acute kidney failure: Qualified Code: N17.9 - Acute renal failure, unspecified acute renal failure type Vinny Fletcher MD Aug 08, 2016 14:07
--- NOTE | 2016-08-08 15:55 | HHI.PR ---
Subjective Remarks c/o right thigh pain denies fevers/chills denies diarrhea denies cp/sob hemoglobin dropped Objective Vitals Vital Signs Date Time Temp Pulse Resp B/P Pulse Ox O2 Delivery O2 Flow Rate FiO2 08/08/16 12:00 97.9 78 17 114/76 95 08/08/16 08:00 98.5 82 18 119/78 95 08/08/16 04:00 98.8 87 20 122/90 94 08/08/16 00:00 99.0 82 20 107/71 96 08/07/16 21:24 18 08/07/16 20:00 97.2 91 20 132/82 94 I/O 08/07/16 08/07/16 08/07/16 08/08/16 08/08/16 08/08/16 07:00 15:00 23:00 07:00 15:00 23:00 Intake Total 240 ml 561 ml 120 ml 240 ml 360 ml Output Total 1175 ml 625 ml 600 ml 600 ml 1150 ml Balance -935 ml -64 ml -480 ml -360 ml -790 ml Intake Oral 240 ml 240 ml 120 ml 240 ml 360 ml IV Total 0 ml 0 ml Packed Cells 321 ml Output Urine Total 350 ml 350 ml 300 ml 400 ml 700 ml Drainage Total 825 ml 275 ml 300 ml 200 ml 450 ml # Bowel Movements 0 1 0 Result Diagram: 08/08/16 0419 08/08/16 0419 Imaging Last Impressions Catheter Placement X-Ray 07/30/16 0000 Signed Impressions: Service Date/Time: Saturday, July 30, 2016 14:14 - CONCLUSION: Uncomplicated line placement as above. Judson Cee MD Brain MRI 07/29/16 0000 Signed Impressions: Service Date/Time: July 13:34 - CONCLUSION: 1. Abnormal examination of the brain demonstrating areas of T2 signal and abnormal diffusion signal involving the globus pallidus bilaterally and the mesial temporal lobes bilaterally. Primary considerations would include carbon monoxide poisoning versus other partial anoxic brain injury. Please see above discussion. Aamir Narayanan MD Chest X-Ray 07/27/16 0000 Signed Impressions: Service Date/Time: Wednesday, July 27, 2016 04:29 - CONCLUSION: Possible interval development of mild interstitial process possibly pulmonary edema and slight left lung base atelectasis. Kathy Berry MD Abdomen Ultrasound 07/26/16 0000 Signed Impressions: Service Date/Time: Tuesday, July 26, 2016 10:21 - CONCLUSION: 1. Small amount of free fluid adjacent to the lower poles of both kidneys. 2. Obscuration of the head of the pancreas, distal IVC and aorta due to overlying bowel gas. 3. Otherwise negative. Judson Cee MD Lower Extremity CT 07/25/16 0000 Signed Impressions: Service Date/Time: Monday, July 25, 2016 18:54 - CONCLUSION: Extensive nonspecific myositis of the right thigh, also involves gluteus medius and minimus proximally and at least medial gastrocnemius below the knee. Infectious/inflammatory and ischemic etiologies would be in the differential. No gas bubbles are seen to substantiate necrotizing fasciitis. No organized/drainable abscess. Glenroy Sheffield MD Hip and Pelvis X-Ray 07/25/16 0000 Signed Impressions: Service Date/Time: Monday, July 25, 2016 16:52 - CONCLUSION: Intact pelvis and right hip. Nonspecific surrounding soft tissue swelling Glenroy Sheffield MD Head CT 07/25/16 0000 Signed Impressions: Service Date/Time: Monday, July 25, 2016 14:38 - CONCLUSION: Negative noncontrast head CT. Glenroy Sheffield MD Chest CT 07/25/16 0000 Signed Impressions: Service Date/Time: Monday, July 25, 2016 16:37 - CONCLUSION: Focal dense consolidation right middle lobe, nonspecific but most likely infectious or inflammatory. Also a 3 mm right basilar pulmonary nodule Followup noncontrast chest CT in a few months recommended to confirm resolution/stability. Glenroy Sheffield MD Abdomen/Pelvis CT 07/25/16 0000 Signed Impressions: Service Date/Time: Monday, July 25, 2016 16:37 - CONCLUSION: 1. Fatty liver and 21 mm right ovarian cyst. Otherwise, no acute abnormality seen within the abdomen or pelvis. 2. Swollen, heterogeneous right hip musculature, primarily gluteus medius and minimus, rectus femoris and vastus lateralis and the adductor muscles. This is nonspecific but suggests a subacute hematoma of these structures. Nothing organized/measurable. 3. Chronic L5 pars defects with grade 2 L5/S1 spondylolisthesis. Glenroy Sheffield MD Objective Remarks GENERAL: 30-year-old female. Critically ill currently resting in bed in no acute distress CARDIOVASCULAR: RRR Faint systolic 2/6 murmur RESPIRATORY: clear to auscultation w no wheezing this morning. GASTROINTESTINAL: Abdomen soft, non-tender, nondistended. Hypoactive bowel sounds. Abrasions. MUSCULOSKELETAL: Right thigh currently with wound VAC lateral aspect. Right hip tender with restricted mobility. Positive peripheral edema right greater than left lower extremity. NEUROLOGICAL: Awake and alert to person, place and year. Motor grossly within normal limits. Procedures Status post right leg washout, senna graft placement and partial wound closure on 08/06. Medications and IVs Current Medications Medications (Trade) Dose Ordered Sig/Sara Route Start Time Stop Time Status Last Admin (NS Flush) 2 ml UNSCH PRN IV FLUSH 07/25/16 16:15 08/04/16 05:10 (NS Flush) 2 ml BID IV FLUSH 07/25/16 21:00 08/08/16 21:17 Miscellaneous Information 1 Q361D XX 07/25/16 16:15 (Chlorhexidine 2% Cloth) Taper DAILY@04 TOP 07/26/16 04:00 07/22/17 03:59 07/30/16 04:00 (Chlorhexidine 2% Cloth) 3 pack UNSCH PRN TOP 07/25/16 16:15 (Ecotrin Ec) 325 mg DAILY PO 07/26/16 09:00 08/08/16 08:40 (Morphine Inj) 4 mg Q2H PRN IV 07/25/16 23:45 08/05/16 21:10 (Theragran) 1 tab DAILY PO 07/26/16 09:00 08/08/16 08:40 (Folate) 1 mg DAILY PO 07/26/16 09:00 08/08/16 08:40 (Zofran Inj) 4 mg Q6H PRN IV 07/26/16 08:00 07/29/16 04:18 (D50w (Vial) Inj) 25 ml UNSCH PRN IV PUSH 07/26/16 08:15 (Glucagon Inj) 1 mg UNSCH PRN OTHER 07/26/16 08:15 (Xifaxan) 550 mg BID PO 07/26/16 10:00 08/08/16 21:18 (Apresoline Inj) 10 mg Q1HR PRN IV PUSH 07/28/16 09:30 08/01/16 09:30 (Nitroglycerin 2% Oint) 1 inch Q6H PRN TOPICAL 07/28/16 09:30 (Pepcid) 10 mg BID PO 07/29/16 09:00 08/08/16 21:18 (Pill Splitter) 1 ea UNSCH PRN OTHER 07/29/16 09:00 (Roxicodone) 5 mg Q6H PRN PO 07/29/16 09:00 08/08/16 21:16 (Lactulose Liq) 30 ml BID PO 07/30/16 21:00 08/08/16 21:16 (NS Flush) UNSCH PRN IVF 07/30/16 16:15 (Heparin Inj) UNSCH PRN IVF 07/30/16 16:15 08/06/16 14:22 Levofloxacin 500 mg 500 mg Q48H PO 07/30/16 22:00 08/07/16 21:24 (NS 1000 ml Inj) 1,000 ml @ 0 mls/hr TITRATE PRN IV 07/31/16 17:45 08/06/16 14:21 (Heparin Inj) 8,000 units UNSCH PRN IV FLUSH 07/31/16 17:45 08/04/16 10:10 Heparin Sodium (Porcine) 1000 units 1,000 units Q1H PRN IV FLUSH 07/31/16 17:45 Sodium Chloride 1,000 ml @ 200 mls/hr Q5H PRN IV 07/31/16 17:45 08/02/16 12:45 (NS 250 ml Inj) 200 ml @ 0 mls/hr UNSCH PRN IV 07/31/16 17:45 (Mannitol Inj) 12.5 gm UNSCH PRN IV 07/31/16 17:45 (Albumin 25% Inj) 25 gm UNSCH PRN IV 07/31/16 17:45 (NS Flush) 5 ml UNSCH PRN IVF 07/31/16 17:45 08/06/16 14:22 (Heparin Inj) Dwell Heparin to f... UNSCH PRN OTHER 07/31/16 17:45 (Gentamicin (Dialysis) Inj) 10 mg UNSCH PRN OTHER 07/31/16 17:45 08/06/16 14:21 (Gelfoam 12 Mm/7 Mm Top) 1 foam UNSCH PRN TOP 07/31/16 17:45 (Zofran Inj) 4 mg UNSCH PRN IV 07/31/16 17:45 (Benadryl) 25 mg UNSCH PRN PO 07/31/16 17:45 (Nitrostat Sl) 0.4 mg UNSCH PRN SL 07/31/16 17:45 (Catapres) 0.1 mg UNSCH PRN PO 07/31/16 17:45 (Catapres) 0.1 mg Q12HR PO 08/02/16 11:00 08/08/16 21:16 (Norvasc) 10 mg DAILY PO 08/03/16 09:00 08/08/16 08:40 Thiamine HCl 100 mg 100 mg DAILY PO 08/02/16 11:00 08/08/16 08:40 (Lr 1000 ml Inj) 1,000 ml @ 30 mls/hr Q24H IV 08/06/16 05:00 08/06/16 08:11 Urinary Catheter: Yes Assessment to: Continue Vascular Central Line Catheter: No A/P Problem List: (1) Compartment syndrome of right lower extremity ICD Code: T79.A21A Status: Acute (2) Rhabdomyolysis ICD Code: M62.82 Status: Resolved (3) Severe sepsis ICD Code: A41.9 Status: Resolved (4) Altered mental status ICD Code: R41.82 Status: Resolved (5) Drug overdose ICD Code: T50.901A Status: Resolved (6) Elevated troponin ICD Code: R79.89 Status: Resolved (7) Severe metabolic acidosis Status: Resolved (8) Lactic acidosis ICD Code: E87.2 Status: Resolved (9) Transaminitis ICD Code: R74.0 Status: Acute (10) Hypocalcemia ICD Code: E83.51 Status: Acute (11) Hyperkalemia ICD Code: E87.5 Status: Acute (12) ST elevation ICD Code: R94.31 Status: Acute (13) Acute kidney failure ICD Code: N17.9 Status: Acute (14) Leukocytosis ICD Code: D72.829 Status: Resolved (15) Small right middle lobe consolidation Status: Acute (16) Hip hematoma, right ICD Code: S70.01XA Status: Acute Assessment and Plan NEURO: Altered mental status Polysubstance abuse with drug overdose including cocaine/heroin Right upper extremity numbness History of THC use EtOH -Continue to Watch for alcohol and drug withdrawal, Use PRN Ativan for anxiety and oxycodone/morphine as needed for pain -CT of the head 07/25 revealed no acute intracranial findings -on aspirin 325 mg daily for elevated troponin. Continue -switch Thiamine/multivitamin and folate to po daily -MRI brain 07/29 revealed T2 signal abnormality globus pallidus and mesial temporal lobe bilaterally. - EEG 07/30 revealed slowing system with moderate diffuse encephalopathy. No seizure activity. - Psychiatry clear to [facility] act 07/29 - neurology evaluated the patient and feels that MRI results are from drug overdose. GI getting ophthalmology consult for eval w slit lamp for Bre- Sylvia rings - 08/05 ophtalmology exam negative for Bre-Sylvia rings. RESP: Mild Respiratory insufficiency secondary to pneumonia/metabolic acidosis Small consolidation right middle lobe Right basilar pulmonary nodule 3 mm - follow-up CT chest 3 months recommended Ongoing tobaccoism -now on RA -Encouraged Incentive spirometry while awake -CT chest 07/25 revealed right middle lobe infiltrate along with 3 mm right basilar pulmonary nodule. 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 Carter, pt does not meet criteria for STEMI -Continue aspirin 325 mg daily, will not use beta blockers due to cocaine abuse -2d echo revealed EF 60-65%. NRWMA. Lactic acid has cleared on Norvasc 10 mg daily for hypertension, 0.1 mg po BID, with as needed hydralazine and Nitropaste, d/c labetalol BP stable. Continue Norvasc, clonidine. PRN hydralazine and nitropaste. GI: Transaminitis Rhabdomyolysis Hyperammonia -Transaminitis most likely secondary to shock/rhabdo -CT of the abdomen and pelvis shows fatty liver/21 mm right ovarian cyst -Negative hepatitis panel -Tolerating renal diet - Xifaxan 550 twice a day/lactulose 30 3 times a day for elevated ammonia. Recheck in AM 07/30 was 49. Recheck in a.m 08/01 was 46. - Noted low ceruloplasmin. 9. 24 hr Urine copper 24 - Liver biopsy will be done on tuesday. /Renal: Acute kidney failure Acute rhabdomyolysis - on normal saline down to 70cc an hour -07/26 renal ultrasound revealed fluid of at poles of bilateral kidneys otherwise negative - Strict intake output. - Urine electrolytes intrinsic renal process/urine eosinophils negative. - Nephrology following. Still making some urine but noted to be decreased by RN. getting HD - Noted decreased C3 of 19/C4 5 - Creatinine stable 3.3 - 3.7, urine output seems to be improving. fu urine output, bmp, fu nephrology recommendations. - HD as per nephrology recommendations. 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 Small consolidation in the right middle lobe unlikely to be source of severe sepsis - 08/07 antibiotics as per ID - currently on Levaquin po and daptomycin Pertinent cultures 07/25 - blood cultures 2 -no growth 07/25 - urine culture -Escherichia coli 08/05 NGTD HEME: Macrocytic anemia Thrombocytopenia 08/07 Acute post op anemia/ acute blood loss anemia -Monitor CBC, CMP, - Transfused total 4 units PRBCs, 2 pack platelets, 2 FFP 2 cryo-since admission - Hb 7.3 today. monitor closely. transfuse if <7.0 - 08/07 hemoglobin dropped down to 6.4 after right leg washout. I will transfuse 2 units of packed blood cells. - Hemoglobin up to 10.2, conitnue to monitor hemoglobin ENDO: -Sliding-scale insulin if clinically indicated FEN: Replace electrolytes as clinically indicated. Currently on renal diet Msk: Right medial/lateral thigh compartment syndrome L5/S1 spondylolisthesis Status post day [address] Turner - wound VAC placement postop day 7 08/06 Status post cleaning of the wound of right leg. PROPH: -Left lower extremity SCDs. Hold subcutaneous heparin given drop in hemoglobin. Discharge Planning Continue to monitor in the medical/surgical floor. Problem Qualifiers (1) Drug overdose: Qualified Code: T50.904A - Drug overdose, undetermined intent, initial encounter (2) Acute kidney failure: Qualified Code: N17.9 - Acute renal failure, unspecified acute renal failure type (3) Leukocytosis: Qualified Code: D72.829 - Leukocytosis, unspecified type Daniel Goncalves MD Aug 08, 2016 15:55
[2016-08-08 20:00] VITALS: BP 133/90; PULSE 77; RESP 20; TEMP 98.4; O2SAT 95
[2016-08-08 21:20] VITALS: PULSE 77
[2016-08-09] VITALS: BP 129/88; PULSE 80; RESP 20; TEMP 99.3; O2SAT 97
[2016-08-09 04:00] VITALS: BP 136/87; PULSE 83; RESP 20; TEMP 99.3; O2SAT 97
[2016-08-09] MEDS: CHLORHEXIDINE GLUCONATE 2 % 1 PACK (2 CLOTHS) TOP SCH (04:00)
[2016-08-09] MEDS: LACTATED RINGER'S 1000 ML IV SCH (04:29)
[2016-08-09 08:00] VITALS: BP 126/81; PULSE 84; RESP 16; TEMP 99.2; O2SAT 96
[2016-08-09 08:25] LABS: BICARBONATE 25.6 MEQ/L (21.0-32.0); POTASSIUM 3.7 MEQ/L (3.5-5.1)
[2016-08-09] MEDS: ASPIRIN EC 325 MG TABEC PO SCH (09:00)
[2016-08-09] MEDS: SODIUM CHLORIDE 0.9% IV SCH ×2 (10:38→11:58)
[2016-08-09] MEDS: DAPTOMYCIN IV SCH ×2 (10:38→11:58)
--- NOTE | 2016-08-09 10:38 | HHI.NPPN ---
Subjective History of Present Illness 30 year old female with drug OD, Rt thigh compartment syndrome s/p Fasciotomy, Rhabdomyolysis, ARF Additional Remarks Patient is alert, has pain in the Rt. leg. Review of Systems General Constitutional: Fatigue Musculoskeletal MS: Pain/Stiffness Objective Data Data 08/08/16 08/09/16 19:00 07:00 Intake Total 360 ml 480 ml Output Total 1150 ml 1325 ml Balance -790 ml -845 ml Intake Oral 360 ml 480 ml IV Total 0 ml Output Urine Total 700 ml 875 ml Drainage Total 450 ml 450 ml # Bowel Movements 0 Vital Signs Date Time Temp Pulse Resp B/P Pulse Ox O2 Delivery O2 Flow Rate FiO2 08/09/16 08:00 99.2 84 16 126/81 96 08/09/16 05:56 16 08/09/16 04:00 99.3 83 20 136/87 97 08/09/16 00:00 99.3 80 20 129/88 97 08/08/16 21:20 77 08/08/16 20:00 98.4 77 20 133/90 95 08/08/16 12:00 97.9 78 17 114/76 95 -: 08/08/16 0419 08/09/16 0438 Physical Exam General Appearance: No Acute Distress, Comfortable Neck Neck Exam: Neck Supple Pulmonary Resp Exam: Clear Bilaterally, Breath Sounds Equal Cardiology CV Exam: Regular, Normal Sinus Rhythm Gastrointestinal/Abdomen GI Exam: Soft, Non-Tender, Bowel Sounds Present Extremeties Extremities Exam: Trace Edema Extremeties Remarks Rt thigh vacuum dressing Neurologic Neuro Exam: Alert, Awake Assessment/Plan Problem List: (1) Acute kidney failure Plan: This is likely due to rhabdomyolysis and acute tubular necrosis increased drainage via leg Daptomycin 440 mg IV with hemodialysis and Levaquin s/p cleaning of wound rt leg seen during hemodialysis UF 1 L follow Creatinine for improvement Follow urine out put and BMP. (2) Compartment syndrome of right lower extremity Plan: Status post surgery (3) UTI (urinary tract infection) Plan: On Levaquin (4) Severe sepsis Plan: Status post fasciotomy right leg (5) Small right middle lobe consolidation Plan: On antibiotics Problem Qualifiers (1) Acute kidney failure: Qualified Code: N17.9 - Acute renal failure, unspecified acute renal failure type Vinny Fletcher MD Aug 09, 2016 10:38 Vinny Fletcher MD Aug 09, 2016 10:38
[2016-08-09] MEDS: SODIUM CHLOR 0.9% 1000 ML IV PRN (10:39)
[2016-08-09] MEDS: GENTAMICIN SULFATE (DIALYSIS USE ONLY) 20 MG/2 ML VIAL OTHER PRN (10:41)
[2016-08-09] MEDS: cloNIDine HCL 0.1 MG TAB PO SCH ×2 (11:53→21:22)
[2016-08-09] MEDS: THIAMINE HCL 100 MG TAB PO SCH (11:53)
[2016-08-09] MEDS: MULTIVITAMIN TAB PO SCH (11:53)
[2016-08-09] MEDS: FAMOTIDINE 20 MG TAB PO SCH (11:54)
[2016-08-09] MEDS: FOLIC ACID 1 MG TAB PO SCH (11:55)
[2016-08-09] MEDS: SODIUM CHLORIDE 0.9% FLUSH 5 ML FLUSH IV FLUSH SCH ×2 (11:56→21:22)
[2016-08-09] MEDS: LACTULOSE SYRUP 20 GM/30 ML CUP PO SCH ×2 (11:56→21:00)
[2016-08-09 12:00] VITALS: BP 143/97; PULSE 87; RESP 16; TEMP 100.1; O2SAT 95
[2016-08-09] MEDS: MORPHINE SULFATE 4 MG/ML INJ IV PRN (12:47)
--- NOTE | 2016-08-09 12:56 | PD.CARD.PN ---
Subjective Subjective Remarks alert in nad Objective Vital Signs / I&O Vital Signs Date Time Temp Pulse Resp B/P Pulse Ox O2 Delivery O2 Flow Rate FiO2 08/09/16 12:00 100.1 87 16 143/97 95 08/09/16 08:00 99.2 84 16 126/81 96 08/09/16 05:56 16 08/09/16 04:00 99.3 83 20 136/87 97 08/09/16 00:00 99.3 80 20 129/88 97 08/08/16 21:20 77 08/08/16 20:00 98.4 77 20 133/90 95 I/O 08/08/16 08/08/16 08/08/16 08/09/16 08/09/16 08/09/16 06:59 14:59 22:59 06:59 14:59 22:59 Intake Total 240 ml 360 ml 480 ml 0 ml Output Total 600 ml 1150 ml 550 ml 775 ml Balance -360 ml -790 ml -70 ml -775 ml Intake Oral 240 ml 360 ml 480 ml 0 ml IV Total 0 ml 0 ml Output Urine Total 400 ml 700 ml 300 ml 575 ml Drainage Total 200 ml 450 ml 250 ml 200 ml # Bowel Movements 1 0 Physical Exam GENERAL: SKIN: Warm and dry. HEAD: Normocephalic. EYES: No scleral icterus. No injection or drainage. NECK: Supple, trachea midline. No JVD or lymphadenopathy. CARDIOVASCULAR: Regular rate and rhythm without murmurs, gallops, or rubs. RESPIRATORY: Breath sounds equal bilaterally. No accessory muscle use. GASTROINTESTINAL: Abdomen soft, non-tender, nondistended. MUSCULOSKELETAL: No cyanosis, or edema. BACK: Nontender without obvious deformity. No CVA tenderness. GENERAL: SKIN: Warm and dry. HEAD: Normocephalic. EYES: No scleral icterus. No injection or drainage. NECK: Supple, trachea midline. No JVD or lymphadenopathy. CARDIOVASCULAR: Regular rate and rhythm without murmurs, gallops, or rubs. RESPIRATORY: Breath sounds equal bilaterally. No accessory muscle use. GASTROINTESTINAL: Abdomen soft, non-tender, nondistended. MUSCULOSKELETAL: No cyanosis, or edema. BACK: Nontender without obvious deformity. No CVA tenderness. Laboratory Laboratory Tests Test 08/09/16 04:38 Sodium Level 142 MEQ/L Potassium Level 3.7 MEQ/L Chloride Level 104 MEQ/L Carbon Dioxide Level 25.6 MEQ/L Anion Gap 12 MEQ/L Blood Urea Nitrogen 31 MG/DL Creatinine 5.55 MG/DL Estimat Glomerular Filtration 9 ML/MIN Rate Random Glucose 88 MG/DL Calcium Level 7.8 MG/DL Assessment and Plan Problem List: (1) Drug overdose (2) Hypocalcemia (3) SIRS (systemic inflammatory response syndrome) (4) Renal failure (5) Hyperkalemia (6) Lactic acidosis (7) Altered mental status (8) Severe sepsis (9) Elevated troponin (10) Severe metabolic acidosis (11) Acute kidney failure (12) Leukocytosis (13) Hip hematoma, right (14) Small right middle lobe consolidation (15) Rhabdomyolysis (16) Compartment syndrome of right lower extremity Assessment and Plan 1.) Elevated troponin - suspect d/t global hypoperfusion d/t hypotension form sepsis, ef=65%, patient is assymptomatic, trop < 1, on aspirin 325 mg qd, d/t arf lhc/pci would be high risk for deterioration in renal function and potential need for temporary or permanent dialysis 2.) POD 9 - hemodynamically stable 3.) ARF - d/t rhabdomyolysis from compartment syndrome, dialysis per dr Fletcher, urine output @ 1575cc last 24 hours 4.) HTN - started on amlodipine 10 mg qd 5.) RLE pain - slight improvement 6.) Anemia - improved s/p transfusion Problem Qualifiers (1) Drug overdose: Qualified Code: T50.904A - Drug overdose, undetermined intent, initial encounter (2) Acute kidney failure: Qualified Code: N17.9 - Acute renal failure, unspecified acute renal failure type (3) Leukocytosis: Qualified Code: D72.829 - Leukocytosis, unspecified type Luis Eduardo Carter MD Aug 09, 2016 12:56
[2016-08-09] MEDS ORDERED: LIDOCAINE 1%/EPINEPHrine 1:100,000 SOLN 20 ML VIAL ONE (13:50)
--- NOTE | 2016-08-09 15:39 | HHI.GIFU ---
Subjective Remarks Resting in bed. No distress. Had liver biopsy today. No abdominal pain. ( Sangeeta Dixon) Objective Vitals I&O Vital Signs Date Time Temp Pulse Resp B/P Pulse Ox O2 Delivery O2 Flow Rate FiO2 08/09/16 12:00 100.1 87 16 143/97 95 08/09/16 08:00 Room Air 08/09/16 08:00 99.2 84 16 126/81 96 08/09/16 05:56 16 08/09/16 04:00 99.3 83 20 136/87 97 08/09/16 00:00 99.3 80 20 129/88 97 08/08/16 21:20 77 08/08/16 20:00 98.4 77 20 133/90 95 I/O 08/08/16 08/08/16 08/08/16 08/09/16 08/09/16 08/09/16 07:00 15:00 23:00 07:00 15:00 23:00 Intake Total 240 ml 360 ml 480 ml 0 ml 0 ml Output Total 600 ml 1150 ml 550 ml 775 ml 350 ml Balance -360 ml -790 ml -70 ml -775 ml -350 ml Intake Oral 240 ml 360 ml 480 ml 0 ml 0 ml IV Total 0 ml 0 ml Output Urine Total 400 ml 700 ml 300 ml 575 ml 200 ml Drainage Total 200 ml 450 ml 250 ml 200 ml 150 ml # Bowel Movements 1 0 # Sanitary Pads 1 Pads Laboratory Laboratory Tests Test 08/09/16 04:38 Sodium Level 142 Potassium Level 3.7 Chloride Level 104 Carbon Dioxide Level 25.6 Anion Gap 12 Blood Urea Nitrogen 31 Creatinine 5.55 Estimat Glomerular Filtration 9 Rate Random Glucose 88 Calcium Level 7.8 Date/Time Procedure Status Source Growth 08/05/16 04:54 Mycobacterial Culture Received Blood Peripheral Pending 08/05/16 04:54 Aerobic Blood Culture - Preliminary Resulted Blood Peripheral NO GROWTH IN 4 DAYS 08/05/16 04:54 Anaerobic Blood Culture - Preliminary Resulted Blood Peripheral NO GROWTH IN 4 DAYS Imaging Last Impressions Catheter Placement X-Ray 07/30/16 0000 Signed Impressions: Service Date/Time: Saturday, July 30, 2016 14:14 - CONCLUSION: Uncomplicated line placement as above. Judson Cee MD Brain MRI 07/29/16 0000 Signed Impressions: Service Date/Time: July 13:34 - CONCLUSION: 1. Abnormal examination of the brain demonstrating areas of T2 signal and abnormal diffusion signal involving the globus pallidus bilaterally and the mesial temporal lobes bilaterally. Primary considerations would include carbon monoxide poisoning versus other partial anoxic brain injury. Please see above discussion. Aamir Narayanan MD Chest X-Ray 07/27/16 0000 Signed Impressions: Service Date/Time: Wednesday, July 27, 2016 04:29 - CONCLUSION: Possible interval development of mild interstitial process possibly pulmonary edema and slight left lung base atelectasis. Kathy Berry MD Abdomen Ultrasound 07/26/16 0000 Signed Impressions: Service Date/Time: Tuesday, July 26, 2016 10:21 - CONCLUSION: 1. Small amount of free fluid adjacent to the lower poles of both kidneys. 2. Obscuration of the head of the pancreas, distal IVC and aorta due to overlying bowel gas. 3. Otherwise negative. Judson Cee MD Lower Extremity CT 07/25/16 0000 Signed Impressions: Service Date/Time: Monday, July 25, 2016 18:54 - CONCLUSION: Extensive nonspecific myositis of the right thigh, also involves gluteus medius and minimus proximally and at least medial gastrocnemius below the knee. Infectious/inflammatory and ischemic etiologies would be in the differential. No gas bubbles are seen to substantiate necrotizing fasciitis. No organized/drainable abscess. Glenroy Sheffield MD Hip and Pelvis X-Ray 07/25/16 0000 Signed Impressions: Service Date/Time: Monday, July 25, 2016 16:52 - CONCLUSION: Intact pelvis and right hip. Nonspecific surrounding soft tissue swelling Glenroy Sheffield MD Head CT 07/25/16 0000 Signed Impressions: Service Date/Time: Monday, July 25, 2016 14:38 - CONCLUSION: Negative noncontrast head CT. Glenroy Sheffield MD Chest CT 07/25/16 0000 Signed Impressions: Service Date/Time: Monday, July 25, 2016 16:37 - CONCLUSION: Focal dense consolidation right middle lobe, nonspecific but most likely infectious or inflammatory. Also a 3 mm right basilar pulmonary nodule Followup noncontrast chest CT in a few months recommended to confirm resolution/stability. Glenroy Sheffield MD Abdomen/Pelvis CT 07/25/16 0000 Signed Impressions: Service Date/Time: Monday, July 25, 2016 16:37 - CONCLUSION: 1. Fatty liver and 21 mm right ovarian cyst. Otherwise, no acute abnormality seen within the abdomen or pelvis. 2. Swollen, heterogeneous right hip musculature, primarily gluteus medius and minimus, rectus femoris and vastus lateralis and the adductor muscles. This is nonspecific but suggests a subacute hematoma of these structures. Nothing organized/measurable. 3. Chronic L5 pars defects with grade 2 L5/S1 spondylolisthesis. Glenroy Sheffield MD Physical Exam CHEST: CTA CARDIAC: RRR ABDOMEN: Soft, nondistended, nontender; no hepatosplenomegaly; bowel sounds are present in all four quadrants. EXTREMITIES: No clubbing, cyanosis. Right thigh lateral wound with wound vac d/ i. RLE edema SKIN: Normal; no rash; no jaundice. ARRESTING GEAR OPERATOR: No focal deficits; alert and oriented times three. (Sangeeta Dixon) Assessment and Plan Plan ASSESSMENT: - Elevated LFTs, possibly combination of shocked liver and rhabdomyolysis. Abdomen Ultrasound (07/26/16)----> 1. Small amount of free fluid adjacent to the lower poles of both kidneys. 2. Obscuration of the head of the pancreas, distal IVC and aorta due to overlying bowel gas. 3. Otherwise negative. Abdomen/Pelvis CT (07/25/16)----> 1. Fatty liver and 21 mm right ovarian cyst. Otherwise, no acute abnormality seen within the abdomen or pelvis. 2. Swollen, heterogeneous right hip musculature, primarily gluteus medius and minimus, rectus femoris and vastus lateralis and the adductor muscles. This is nonspecific but suggests a subacute hematoma of these structures. Nothing organized/measurable. 3. Chronic L5 pars defects with grade 2 L5/S1 spondylolisthesis. Toxicology report---- > Acetaminophen less than 2.0, Salicylates less than 1.7, Ethyl alcohol 28, toxicology screen negative- although the patient reports that she does use pills and smoke marijuana. Hepatitis panel negative. She does have documented episodes of hypotension as well as rhabdomyolysis. JORY negative, ASMA negative, AMA negative, Ferritin 400, Iron saturation 81.4 (post transfusion), Ceruloplasmin 9, ALpha 1 Antitrypsin 95. 24 hour urine for copper 27, copper concentration 46- normal limits. 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 LFTs stable. S/P Liver biopsy, pathology pending. - Low Ceruloplasmin level 9. Brain MRI (07/29/16)----> 1. Abnormal examination of the brain demonstrating areas of T2 signal and abnormal diffusion signal involving the globus pallidus bilaterally and the mesial temporal lobes bilaterally. Primary considerations would include carbon monoxide poisoning versus other partial anoxic brain injury. Please see above discussion. Of note, Branden's disease was also mentioned in the differential. 24 hour urine for copper 27, copper concentration 46- normal limits. S/p ophthalmology slit lamp exam-----> normal exam. Liver biopsy. - Low Alpha 1 Antitrypsin 95. Rpt. high- 192, Phenotype MM - AMS, IMPROVED. Xifaxan, Lactulose. - Rhabdomyolysis. IMPROVED - Compartment syndrome, s/p fasciotomy, wound vac placement. Went to OR 08/06 for washout of her fasciotomy site of the right thigh with placement of a acellular xenograft - Sepsis, elevated lactic acid, likely t/t right thigh compartment syndrome. - Coagulopathy, IMPROVED - Anemia, stable. S/P blood transfusion yesterday. H/H 10.2/27.7. - CARLITO, HD per renal Plan: - JACY - Await pathology from liver biopsy - Monitor LFTs - Monitor HH - Transfuse as necessary - Avoid hypotension - Avoid hepatotoxins - Supportive care - Further recommendations to follow based on results of above - PT seen and examined by Dr. Walton and myself and this note is written on her behalf (Sangeeta Dixon) Sangeeta Dixon Aug 09, 2016 15:39 Lynnette Walton MD Aug 09, 2016 18:41
[2016-08-09 16:00] VITALS: BP 130/78; PULSE 70; RESP 16; TEMP 99; O2SAT 97
--- NOTE | 2016-08-09 18:05 | HHI.PR ---
Subjective Remarks patient c/o cough with productive sputum low grade fever w a tmax 100.1 denies cp denies sob denies diarrhea right thigh pain controlled Objective Vitals Vital Signs Date Time Temp Pulse Resp B/P Pulse Ox O2 Delivery O2 Flow Rate FiO2 08/09/16 12:00 100.1 87 16 143/97 95 08/09/16 08:00 Room Air 08/09/16 08:00 99.2 84 16 126/81 96 08/09/16 05:56 16 08/09/16 04:00 99.3 83 20 136/87 97 08/09/16 00:00 99.3 80 20 129/88 97 08/08/16 21:20 77 08/08/16 20:00 98.4 77 20 133/90 95 I/O 08/08/16 08/08/16 08/08/16 08/09/16 08/09/16 08/09/16 07:00 15:00 23:00 07:00 15:00 23:00 Intake Total 240 ml 360 ml 480 ml 0 ml 0 ml Output Total 600 ml 1150 ml 550 ml 775 ml 350 ml Balance -360 ml -790 ml -70 ml -775 ml -350 ml Intake Oral 240 ml 360 ml 480 ml 0 ml 0 ml IV Total 0 ml 0 ml Output Urine Total 400 ml 700 ml 300 ml 575 ml 200 ml Drainage Total 200 ml 450 ml 250 ml 200 ml 150 ml # Bowel Movements 1 0 # Sanitary Pads 1 Pads Result Diagram: 08/08/16 0419 08/09/16 0438 Imaging Last Impressions Catheter Placement X-Ray 07/30/16 0000 Signed Impressions: Service Date/Time: Saturday, July 30, 2016 14:14 - CONCLUSION: Uncomplicated line placement as above. Judson Cee MD Brain MRI 07/29/16 0000 Signed Impressions: Service Date/Time: July 13:34 - CONCLUSION: 1. Abnormal examination of the brain demonstrating areas of T2 signal and abnormal diffusion signal involving the globus pallidus bilaterally and the mesial temporal lobes bilaterally. Primary considerations would include carbon monoxide poisoning versus other partial anoxic brain injury. Please see above discussion. Aamir Narayanan MD Chest X-Ray 07/27/16 0000 Signed Impressions: Service Date/Time: Wednesday, July 27, 2016 04:29 - CONCLUSION: Possible interval development of mild interstitial process possibly pulmonary edema and slight left lung base atelectasis. Kathy Berry MD Abdomen Ultrasound 07/26/16 Signed Impressions: Service Date/Time: Tuesday, July 26, 2016 10:21 - CONCLUSION: 1. Small amount of free fluid adjacent to the lower poles of both kidneys. 2. Obscuration of the head of the pancreas, distal IVC and aorta due to overlying bowel gas. 3. Otherwise negative. Judson Cee MD Lower Extremity CT 07/25/16 0000 Signed Impressions: Service Date/Time: Monday, July 25, 2016 18:54 - CONCLUSION: Extensive nonspecific myositis of the right thigh, also involves gluteus medius and minimus proximally and at least medial gastrocnemius below the knee. Infectious/inflammatory and ischemic etiologies would be in the differential. No gas bubbles are seen to substantiate necrotizing fasciitis. No organized/drainable abscess. Glenroy Sheffield MD Hip and Pelvis X-Ray 07/25/16 Signed Impressions: Service Date/Time: Monday, July 25, 2016 16:52 - CONCLUSION: Intact pelvis and right hip. Nonspecific surrounding soft tissue swelling Glenroy Sheffield MD Head CT 07/25/16 0000 Signed Impressions: Service Date/Time: Monday, July 25, 2016 14:38 - CONCLUSION: Negative noncontrast head CT. Glenroy Sheffield MD Chest CT 07/25/16 0000 Signed Impressions: Service Date/Time: Monday, July 25, 2016 16:37 - CONCLUSION: Focal dense consolidation right middle lobe, nonspecific but most likely infectious or inflammatory. Also a 3 mm right basilar pulmonary nodule Followup noncontrast chest CT in a few months recommended to confirm resolution/stability. Glenroy Sheffield MD Abdomen/Pelvis CT 07/25/16 0000 Signed Impressions: Service Date/Time: Monday, July 25, 2016 16:37 - CONCLUSION: 1. Fatty liver and 21 mm right ovarian cyst. Otherwise, no acute abnormality seen within the abdomen or pelvis. 2. Swollen, heterogeneous right hip musculature, primarily gluteus medius and minimus, rectus femoris and vastus lateralis and the adductor muscles. This is nonspecific but suggests a subacute hematoma of these structures. Nothing organized/measurable. 3. Chronic L5 pars defects with grade 2 L5/S1 spondylolisthesis. Glenroy Sheffield MD Objective Remarks GENERAL: 30-year-old female. Critically ill currently resting in bed in no acute distress CARDIOVASCULAR: RRR Faint systolic 2/6 murmur RESPIRATORY: clear to auscultation w no wheezing this morning. GASTROINTESTINAL: Abdomen soft, non-tender, nondistended. Hypoactive bowel sounds. Abrasions. MUSCULOSKELETAL: Right thigh currently with wound VAC lateral aspect. Right hip tender with restricted mobility. Positive peripheral edema right greater than left lower extremity. NEUROLOGICAL: Awake and alert to person, place and year. Motor grossly within normal limits. Procedures Status post right leg washout, senna graft placement and partial wound closure on 08/06. Medications and IVs Current Medications Medications (Trade) Dose Ordered Sig/Sara Route Start Time Stop Time Status Last Admin (NS Flush) 2 ml UNSCH PRN IV FLUSH 07/25/16 16:15 08/04/16 05:10 (NS Flush) 2 ml BID IV FLUSH 07/25/16 21:00 08/09/16 11:56 Miscellaneous Information 1 Q361D XX 07/25/16 16:15 (Chlorhexidine 2% Cloth) Taper DAILY@04 TOP 07/26/16 04:00 07/22/17 03:59 07/30/16 04:00 (Chlorhexidine 2% Cloth) 3 pack UNSCH PRN TOP 07/25/16 16:15 (Ecotrin Ec) 325 mg DAILY PO 07/26/16 09:00 08/08/16 08:40 (Morphine Inj) 4 mg Q2H PRN IV 07/25/16 23:45 08/09/16 12:47 (Theragran) 1 tab DAILY PO 07/26/16 09:00 08/09/16 11:53 (Folate) 1 mg DAILY PO 07/26/16 09:00 08/09/16 11:55 (Zofran Inj) 4 mg Q6H PRN IV 07/26/16 08:00 07/29/16 04:18 (D50w (Vial) Inj) 25 ml UNSCH PRN IV PUSH 07/26/16 08:15 (Glucagon Inj) 1 mg UNSCH PRN OTHER 07/26/16 08:15 (Xifaxan) 550 mg BID PO 07/26/16 10:00 08/08/16 21:18 (Apresoline Inj) 10 mg Q1HR PRN IV PUSH 07/28/16 09:30 08/01/16 09:30 (Nitroglycerin 2% Oint) 1 inch Q6H PRN TOPICAL 07/28/16 09:30 (Pepcid) 10 mg BID PO 07/29/16 09:00 08/09/16 11:54 (Pill Splitter) 1 ea UNSCH PRN OTHER 07/29/16 09:00 (Roxicodone) 5 mg Q6H PRN PO 07/29/16 09:00 08/09/16 18:03 (Lactulose Liq) 30 ml BID PO 07/30/16 21:00 08/09/16 11:56 (NS Flush) UNSCH PRN IVF 07/30/16 16:15 (Heparin Inj) UNSCH PRN IVF 07/30/16 16:15 08/06/16 14:22 Levofloxacin 500 mg 500 mg Q48H PO 07/30/16 22:00 08/07/16 21:24 (NS 1000 ml Inj) 1,000 ml @ 0 mls/hr TITRATE PRN IV 07/31/16 17:45 08/09/16 10:39 (Heparin Inj) 8,000 units UNSCH PRN IV FLUSH 07/31/16 17:45 08/04/16 10:10 Heparin Sodium (Porcine) 1000 units 1,000 units Q1H PRN IV FLUSH 07/31/16 17:45 08/09/16 10:41 Sodium Chloride 1,000 ml @ 200 mls/hr Q5H PRN IV 07/31/16 17:45 08/02/16 12:45 (NS 250 ml Inj) 200 ml @ 0 mls/hr UNSCH PRN IV 07/31/16 17:45 (Mannitol Inj) 12.5 gm UNSCH PRN IV 07/31/16 17:45 (Albumin 25% Inj) 25 gm UNSCH PRN IV 07/31/16 17:45 (NS Flush) 5 ml UNSCH PRN IVF 07/31/16 17:45 08/06/16 14:22 (Heparin Inj) Dwell Heparin to f... UNSCH PRN OTHER 07/31/16 17:45 (Gentamicin (Dialysis) Inj) 10 mg UNSCH PRN OTHER 07/31/16 17:45 08/09/16 10:41 (Gelfoam 12 Mm/7 Mm Top) 1 foam UNSCH PRN TOP 07/31/16 17:45 (Zofran Inj) 4 mg UNSCH PRN IV 07/31/16 17:45 (Benadryl) 25 mg UNSCH PRN PO 07/31/16 17:45 (Nitrostat Sl) 0.4 mg UNSCH PRN SL 07/31/16 17:45 (Catapres) 0.1 mg UNSCH PRN PO 07/31/16 17:45 (Catapres) 0.1 mg Q12HR PO 08/02/16 11:00 08/09/16 11:53 (Norvasc) 10 mg DAILY PO 08/03/16 09:00 08/09/16 11:54 Thiamine HCl 100 mg 100 mg DAILY PO 08/02/16 11:00 08/09/16 11:53 (Lr 1000 ml Inj) 1,000 ml @ 30 mls/hr Q24H IV 08/06/16 05:00 08/06/16 08:11 A/P Problem List: (1) Compartment syndrome of right lower extremity ICD Code: T79.A21A Status: Acute (2) Rhabdomyolysis ICD Code: M62.82 Status: Resolved (3) Severe sepsis ICD Code: A41.9 Status: Resolved (4) Altered mental status ICD Code: R41.82 Status: Resolved (5) Drug overdose ICD Code: T50.901A Status: Resolved (6) Elevated troponin ICD Code: R79.89 Status: Resolved (7) Severe metabolic acidosis Status: Resolved (8) Lactic acidosis ICD Code: E87.2 Status: Resolved (9) Transaminitis ICD Code: R74.0 Status: Acute (10) Hypocalcemia ICD Code: E83.51 Status: Acute (11) Hyperkalemia ICD Code: E87.5 Status: Acute (12) ST elevation ICD Code: R94.31 Status: Acute (13) Acute kidney failure ICD Code: N17.9 Status: Acute (14) Leukocytosis ICD Code: D72.829 Status: Resolved (15) Small right middle lobe consolidation Status: Acute (16) Hip hematoma, right ICD Code: S70.01XA Status: Acute Assessment and Plan NEURO: Altered mental status Polysubstance abuse with drug overdose including cocaine/heroin Right upper extremity numbness History of THC use EtOH -Continue to Watch for alcohol and drug withdrawal, Use PRN Ativan for anxiety and oxycodone/morphine as needed for pain -CT of the head 07/25 revealed no acute intracranial findings -on aspirin 325 mg daily for elevated troponin. Continue -switch Thiamine/multivitamin and folate to po daily -MRI brain 07/29 revealed T2 signal abnormality globus pallidus and mesial temporal lobe bilaterally. - EEG 07/30 revealed slowing system with moderate diffuse encephalopathy. No seizure activity. - Psychiatry clear to [facility] act 07/29 - neurology evaluated the patient and feels that MRI results are from drug overdose. GI getting ophthalmology consult for eval w slit lamp for Bre- Sylvia rings - 08/05 ophtalmology exam negative for Bre-Sylvia rings. RESP: Mild Respiratory insufficiency secondary to pneumonia/metabolic acidosis Small consolidation right middle lobe Right basilar pulmonary nodule 3 mm - follow-up CT chest 3 months recommended Ongoing tobaccoism -now on RA -Encouraged Incentive spirometry while awake -CT chest 07/25 revealed right middle lobe infiltrate along with 3 mm right basilar pulmonary nodule. -Chest x-ray 07/26 reveals no significant cardio pulmonary findings -DuoNeb every 2 hours when necessary -See ID section for broad-spectrum antibiotics CV: Elevated troponin Severe lactic acidosis - resolved ST elevation in V1 and V2 -HLIV -Wafer Substrate Tester discussed extensively with Dr. Carter, pt does not meet criteria for STEMI -Continue aspirin 325 mg daily, will not use beta blockers due to cocaine abuse -2d echo revealed EF 60-65%. NRWMA. Lactic acid has cleared on Norvasc 10 mg daily for hypertension, 0.1 mg po BID, with as needed hydralazine and Nitropaste, d/c labetalol BP stable. Continue Norvasc, clonidine. PRN hydralazine and nitropaste. GI: Transaminitis Rhabdomyolysis Hyperammonia -Transaminitis most likely secondary to shock/rhabdo -CT of the abdomen and pelvis shows fatty liver/21 mm right ovarian cyst -Negative hepatitis panel -Tolerating renal diet - Xifaxan 550 twice a day/lactulose 30 3 times a day for elevated ammonia. Recheck in AM 07/30 was 49. Recheck in a.m 08/01 was 46. - Noted low ceruloplasmin. 9. 24 hr Urine copper 24 - Liver biopsy will be done on tuesday. /Renal: Acute kidney failure Acute rhabdomyolysis - on normal saline down to 70cc an hour -07/26 renal ultrasound revealed fluid of at poles of bilateral kidneys otherwise negative - Strict intake output. - Urine electrolytes intrinsic renal process/urine eosinophils negative. - Nephrology following. Still making some urine but noted to be decreased by RN. getting HD - Noted decreased C3 of 19/C4 5 - Creatinine stable 3.3 - 3.7, urine output seems to be improving. fu urine output, bmp, fu nephrology recommendations. - HD as per nephrology recommendations. NURSING DIRECTOR: Right ovarian cyst Beta hCG 1 ID: Severe sepsis Escherichia coli UTI -Source likely secondary to right thigh compartment syndrome -Previously on vancomycin and Zosyn day #6 - currently on Levaquin 500 milligrams every 48 day -Infectious disease following. Small consolidation in the right middle lobe unlikely to be source of severe sepsis - 08/07 antibiotics as per ID - currently on Levaquin po and daptomycin - 08/09 low grade fever - check cxr - sputum culture. Pertinent cultures 07/25 - blood cultures 2 -no growth 07/25 - urine culture -Escherichia coli 08/05 NGTD HEME: Macrocytic anemia Thrombocytopenia 08/07 Acute post op anemia/ acute blood loss anemia -Monitor CBC, CMP, - Transfused total 4 units PRBCs, 2 pack platelets, 2 FFP 2 cryo-since admission - Hb 7.3 today. monitor closely. transfuse if <7.0 - 08/07 hemoglobin dropped down to 6.4 after right leg washout. I will transfuse 2 units of packed blood cells. - Hemoglobin up to 10.2, conitnue to monitor hemoglobin ENDO: -Sliding-scale insulin if clinically indicated FEN: Replace electrolytes as clinically indicated. Currently on renal diet Msk: Right medial/lateral thigh compartment syndrome L5/S1 spondylolisthesis Status post day [address] Turner - wound VAC placement postop day 7 08/06 Status post cleaning of the wound of right leg. PROPH: -Left lower extremity SCDs. Hold subcutaneous heparin given drop in hemoglobin. Discharge Planning Continue to monitor in the medical/surgical floor. Problem Qualifiers (1) Drug overdose: Qualified Code: T50.904A - Drug overdose, undetermined intent, initial encounter (2) Acute kidney failure: Qualified Code: N17.9 - Acute renal failure, unspecified acute renal failure type (3) Leukocytosis: Qualified Code: D72.829 - Leukocytosis, unspecified type Daniel Goncalves MD Aug 09, 2016 18:05
--- NOTE | 2016-08-09 19:11 | HHI.IDPN ---
Subjective Subjective Remarks low grade temps today up to 100.1 co R thigh pain Antibiotics levaquine daptomycin Allergies: Coded Allergies: No Known Allergies (Unverified , 12/10/14) Objective . Vital Signs Date Time Temp Pulse Resp B/P Pulse Ox O2 Delivery O2 Flow Rate FiO2 08/09/16 16:00 99.0 70 16 130/78 97 08/09/16 12:00 100.1 87 16 143/97 95 08/09/16 08:00 Room Air 08/09/16 08:00 99.2 84 16 126/81 96 08/09/16 05:56 16 08/09/16 04:00 99.3 83 20 136/87 97 08/09/16 00:00 99.3 80 20 129/88 97 08/08/16 21:20 77 08/08/16 20:00 98.4 77 20 133/90 95 08/08/16 08/08/16 08/09/16 15:00 23:00 07:00 Intake Total 360 ml 480 ml 0 ml Output Total 1150 ml 550 ml 775 ml Balance -790 ml -70 ml -775 ml Intake Oral 360 ml 480 ml 0 ml IV Total 0 ml 0 ml Output Urine Total 700 ml 300 ml 575 ml Drainage Total 450 ml 250 ml 200 ml # Bowel Movements 0 . Laboratory Tests Test 08/08/16 04:19 White Blood Count 9.0 TH/MM3 Red Blood Count 3.16 MIL/MM3 Hemoglobin 10.2 GM/DL Hematocrit 27.7 % Mean Corpuscular Volume 87.5 FL Mean Corpuscular Hemoglobin 32.3 PG Mean Corpuscular Hemoglobin 36.9 % Concent Red Cell Distribution Width 17.1 % Platelet Count 123 TH/MM3 Mean Platelet Volume 8.6 FL Laboratory Tests Test 08/08/16 08/09/16 04:19 04:38 Sodium Level 140 MEQ/L 142 MEQ/L Potassium Level 3.5 MEQ/L 3.7 MEQ/L Chloride Level 100 MEQ/L 104 MEQ/L Carbon Dioxide Level 32.3 MEQ/L 25.6 MEQ/L Anion Gap 8 MEQ/L 12 MEQ/L Blood Urea Nitrogen 25 MG/DL 31 MG/DL Creatinine 4.78 MG/DL 5.55 MG/DL Estimat Glomerular Filtration 11 ML/MIN 9 ML/MIN Rate Random Glucose 89 MG/DL 88 MG/DL Calcium Level 7.5 MG/DL 7.8 MG/DL Phosphorus Level 4.4 MG/DL Magnesium Level 1.6 MG/DL Imaging Last Impressions Catheter Placement X-Ray 07/30/16 0000 Signed Impressions: Service Date/Time: Saturday, July 30, 2016 14:14 - CONCLUSION: Uncomplicated line placement as above. Judson Cee MD Brain MRI 07/29/16 0000 Signed Impressions: Service Date/Time: July 13:34 - CONCLUSION: 1. Abnormal examination of the brain demonstrating areas of T2 signal and abnormal diffusion signal involving the globus pallidus bilaterally and the mesial temporal lobes bilaterally. Primary considerations would include carbon monoxide poisoning versus other partial anoxic brain injury. Please see above discussion. Aamir Narayanan MD Chest X-Ray 07/27/16 0000 Signed Impressions: Service Date/Time: Wednesday, July 27, 2016 04:29 - CONCLUSION: Possible interval development of mild interstitial process possibly pulmonary edema and slight left lung base atelectasis. KVirgilio Berry MD Abdomen Ultrasound 07/26/16 0000 Signed Impressions: Service Date/Time: Tuesday, July 26, 2016 10:21 - CONCLUSION: 1. Small amount of free fluid adjacent to the lower poles of both kidneys. 2. Obscuration of the head of the pancreas, distal IVC and aorta due to overlying bowel gas. 3. Otherwise negative. Judson Cee MD Lower Extremity CT 07/25/16 0000 Signed Impressions: Service Date/Time: Monday, July 25, 2016 18:54 - CONCLUSION: Extensive nonspecific myositis of the right thigh, also involves gluteus medius and minimus proximally and at least medial gastrocnemius below the knee. Infectious/inflammatory and ischemic etiologies would be in the differential. No gas bubbles are seen to substantiate necrotizing fasciitis. No organized/drainable abscess. Glenroy Sheffield MD Hip and Pelvis X-Ray 07/25/16 0000 Signed Impressions: Service Date/Time: Monday, July 25, 2016 16:52 - CONCLUSION: Intact pelvis and right hip. Nonspecific surrounding soft tissue swelling Glenroy Sheffield MD Head CT 07/25/16 0000 Signed Impressions: Service Date/Time: Monday, July 25, 2016 14:38 - CONCLUSION: Negative noncontrast head CT. Glenroy Sheffield MD Chest CT 07/25/16 0000 Signed Impressions: Service Date/Time: Monday, July 25, 2016 16:37 - CONCLUSION: Focal dense consolidation right middle lobe, nonspecific but most likely infectious or inflammatory. Also a 3 mm right basilar pulmonary nodule Followup noncontrast chest CT in a few months recommended to confirm resolution/stability. Glenroy Sheffield MD Abdomen/Pelvis CT 07/25/16 0000 Signed Impressions: Service Date/Time: Monday, July 25, 2016 16:37 - CONCLUSION: 1. Fatty liver and 21 mm right ovarian cyst. Otherwise, no acute abnormality seen within the abdomen or pelvis. 2. Swollen, heterogeneous right hip musculature, primarily gluteus medius and minimus, rectus femoris and vastus lateralis and the adductor muscles. This is nonspecific but suggests a subacute hematoma of these structures. Nothing organized/measurable. 3. Chronic L5 pars defects with grade 2 L5/S1 spondylolisthesis. Glenroy Sheffield MD Physical Exam CONSTITUTIONAL/GENERAL: This is an adequately nourished patient, in no apparent distress. SKIN: No jaundice, rashes, or lesions. CARDIOVASCULAR: Regular rate and rhythm without murmurs, gallops, or rubs. No JVD. Peripheral pulses symmetric. RESPIRATORY/CHEST: Symmetric, unlabored respirations. Clear to auscultation. Breath sounds equal bilaterally. No wheezes, rales, or rhonchi. GASTROINTESTINAL: Abdomen soft, non-tender, mildly distended. Bowel sounds present. GENITOURINARY: Without palpable bladder distension. Sinclair catheter in place with large amount of clear yellow urine MUSCULOSKELETAL: Extremities without clubbing, cyanosis, persisten R thigh non piting edema, compartments soft. VAC dressing in place R thigh with serous dc (large amount) No joint tenderness or effusion noted. No calf tenderness. No mottling or clubbing. NEUROLOGICAL: Awake and alert. Motor and sensory grossly within normal limits. Follows commands. normal speech; confused Moves all extremities. Major memory deficits PSYCHIATRIC: calm and cooperative LINES: R IJ VAscath in place wo e/o infx Assessment & Plan Remarks R thigh myositis involving multiple muscel groups compartment sd sp fasciotomy Illicit drug OD Sepsis (lactic acidosis, leukocytosis) suspected vs other condition - blood clx negative : final UTI E.coli ARF, poliuric now Anoxic brain injury vs nai monoxide New fever ? infection - central line infx is the main concern - wound does not appear infected per other providers dc levaquine po dc daptomycin for now monitor temps - monitor WBC dw Kimi Araujo MD Aug 09, 2016 19:11
--- NOTE | 2016-08-09 19:44 | RADRPT ---
EXAM DATE/TIME: 08/09/2016 19:30 [place] COMPARISON: CHEST SINGLE AP, July 27, 2016, 4:29. INDICATIONS : Cough. MEDICAL HISTORY : None. SURGICAL HISTORY : None. ENCOUNTER: Subsequent ACUITY: 1 month PAIN SCORE: 0/10 LOCATION: Bilateral chest FINDINGS: A single AP erect portable view of the chest was obtained and demonstrates interval placement of a do uble lumen right sided central venous line. There is mild hazy opacity at the lung bases with mild bl unting of the left costophrenic angle. The heart size is within normal limits. The bony thorax is int act. There are multiple overlying electrocardiogram leads. CONCLUSION: 1. Interval placement of double-lumen central venous line. 2. Hazy opacity at the lung bases with mild blunting of the left costophrenic angle which could indic ate a small effusion. Nael Zuñiga MD on August 09, 2016 at 19:39 Board Certified Radiologist. This report was verified electronically.
[2016-08-09 20:00] VITALS: BP 121/80; PULSE 83; PULSE 86; RESP 16; TEMP 99.2; O2SAT 95
[2016-08-09] MEDS: RIFAXIMIN 550 MG TAB PO SCH (21:22)
[2016-08-10] VITALS (7 sets, daily range): BP systolic 108–117; BP diastolic 74–81; PULSE 77–81; RESP 16–21; TEMP 98.7–99.9; O2SAT 92–96
[2016-08-10] MEDS: CHLORHEXIDINE GLUCONATE 2 % 1 PACK (2 CLOTHS) TOP SCH (04:00)
[2016-08-10] MEDS: LACTATED RINGER'S 1000 ML IV SCH (04:12)
[2016-08-10] MEDS: LACTULOSE SYRUP 20 GM/30 ML CUP PO SCH ×2 (08:04→21:12)
[2016-08-10] MEDS: ASPIRIN EC 325 MG TABEC PO SCH (08:05)
[2016-08-10] MEDS: MULTIVITAMIN TAB PO SCH (08:05)
[2016-08-10] MEDS: THIAMINE HCL 100 MG TAB PO SCH (08:05)
[2016-08-10] MEDS: SODIUM CHLORIDE 0.9% FLUSH 5 ML FLUSH IV FLUSH SCH ×2 (08:06→21:07)
[2016-08-10] MEDS: RIFAXIMIN 550 MG TAB PO SCH ×2 (08:06→21:07)
[2016-08-10] MEDS: FAMOTIDINE 20 MG TAB PO SCH ×2 (08:06→21:07)
[2016-08-10] MEDS: FOLIC ACID 1 MG TAB PO SCH (08:06)
[2016-08-10] MEDS: cloNIDine HCL 0.1 MG TAB PO SCH ×2 (08:06→21:07)
--- NOTE | 2016-08-10 09:27 | PD.CARD.PN ---
Subjective Subjective Remarks alert in nad Objective Vital Signs / I&O Vital Signs Date Time Temp Pulse Resp B/P Pulse Ox O2 Delivery O2 Flow Rate FiO2 08/10/16 07:53 99.9 81 16 109/74 94 08/10/16 04:00 99.2 79 16 117/80 95 08/10/16 00:00 99.3 77 16 117/81 96 08/09/16 20:00 99.2 86 16 121/80 95 08/09/16 20:00 83 08/09/16 16:00 99.0 70 16 130/78 97 08/09/16 12:00 100.1 87 16 143/97 95 I/O 08/09/16 08/09/16 08/09/16 08/10/16 08/10/16 08/10/16 07:00 15:00 23:00 07:00 15:00 23:00 Intake Total 0 ml 0 ml 240 ml 240 ml Output Total 775 ml 350 ml 325 ml 400 ml Balance -775 ml -350 ml -85 ml -160 ml Intake Oral 0 ml 0 ml 240 ml 240 ml IV Total 0 ml 0 ml 0 ml Output Urine Total 575 ml 200 ml 250 ml 300 ml Drainage Total 200 ml 150 ml 75 ml 100 ml # Bowel Movements 0 0 # Sanitary Pads 1 Pads Physical Exam GENERAL: SKIN: Warm and dry. HEAD: Normocephalic. EYES: No scleral icterus. No injection or drainage. NECK: Supple, trachea midline. No JVD or lymphadenopathy. CARDIOVASCULAR: Regular rate and rhythm without murmurs, gallops, or rubs. RESPIRATORY: Breath sounds equal bilaterally. No accessory muscle use. GASTROINTESTINAL: Abdomen soft, non-tender, nondistended. MUSCULOSKELETAL: No cyanosis, or edema. BACK: Nontender without obvious deformity. No CVA tenderness. GENERAL: SKIN: Warm and dry. HEAD: Normocephalic. EYES: No scleral icterus. No injection or drainage. NECK: Supple, trachea midline. No JVD or lymphadenopathy. CARDIOVASCULAR: Regular rate and rhythm without murmurs, gallops, or rubs. RESPIRATORY: Breath sounds equal bilaterally. No accessory muscle use. GASTROINTESTINAL: Abdomen soft, non-tender, nondistended. MUSCULOSKELETAL: No cyanosis, or edema. BACK: Nontender without obvious deformity. No CVA tenderness. Assessment and Plan Problem List: (1) Drug overdose (2) Hypocalcemia (3) SIRS (systemic inflammatory response syndrome) (4) Renal failure (5) Hyperkalemia (6) Lactic acidosis (7) Altered mental status (8) Severe sepsis (9) Elevated troponin (10) Severe metabolic acidosis (11) Acute kidney failure (12) Leukocytosis (13) Hip hematoma, right (14) Small right middle lobe consolidation (15) Rhabdomyolysis (16) Compartment syndrome of right lower extremity Assessment and Plan 1.) Elevated troponin - suspect d/t global hypoperfusion d/t hypotension form sepsis, ef=65%, patient is assymptomatic, trop < 1, on aspirin 325 mg qd, d/t arf lhc/pci would be high risk for deterioration in renal function and potential need for temporary or permanent dialysis 2.) POD 10 - hemodynamically stable 3.) ARF - d/t rhabdomyolysis from compartment syndrome, dialysis per dr Fletcher, urine output @ 750cc last 24 hours 4.) HTN - started on amlodipine 10 mg qd 5.) RLE pain - slight improvement 6.) Anemia - improved s/p transfusion Problem Qualifiers (1) Drug overdose: Qualified Code: T50.904A - Drug overdose, undetermined intent, initial encounter (2) Acute kidney failure: Qualified Code: N17.9 - Acute renal failure, unspecified acute renal failure type (3) Leukocytosis: Qualified Code: D72.829 - Leukocytosis, unspecified type Luis Eduardo Carter MD Aug 10, 2016 09:27
--- NOTE | 2016-08-10 11:11 | HHI.NPPN ---
Subjective History of Present Illness 30 year old female with drug OD, Rt thigh compartment syndrome s/p Fasciotomy, Rhabdomyolysis, ARF Additional Remarks Patient is alert, has pain in the Rt. leg. Review of Systems General Constitutional: Fatigue Musculoskeletal MS: Pain/Stiffness Objective Data Data 08/09/16 08/10/16 19:00 07:00 Intake Total 0 ml 480 ml Output Total 350 ml 725 ml Balance -350 ml -245 ml Intake Oral 0 ml 480 ml IV Total 0 ml Output Urine Total 200 ml 550 ml Drainage Total 150 ml 175 ml # Bowel Movements 0 # Sanitary Pads 1 Pads Vital Signs Date Time Temp Pulse Resp B/P Pulse Ox O2 Delivery O2 Flow Rate FiO2 08/10/16 07:53 99.9 81 16 109/74 94 08/10/16 04:00 99.2 79 16 117/80 95 08/10/16 00:00 99.3 77 16 117/81 96 08/09/16 20:00 99.2 86 16 121/80 95 08/09/16 20:00 83 08/09/16 16:00 99.0 70 16 130/78 97 08/09/16 12:00 100.1 87 16 143/97 95 -: 08/08/16 0419 08/09/16 0438 Microbiology 08/09/16 Gram Stain - Final, Resulted 08/09/16 Sputum Culture, Resulted Pending Physical Exam General Appearance: No Acute Distress, Comfortable Neck Neck Exam: Neck Supple Pulmonary Resp Exam: Clear Bilaterally, Breath Sounds Equal Cardiology CV Exam: Regular, Normal Sinus Rhythm Gastrointestinal/Abdomen GI Exam: Soft, Non-Tender, Bowel Sounds Present Extremeties Extremities Exam: Trace Edema Extremeties Remarks Rt thigh vacuum dressing Neurologic Neuro Exam: Alert, Awake Assessment/Plan Problem List: (1) Acute kidney failure Plan: This is likely due to rhabdomyolysis and acute tubular necrosis increased drainage via leg Daptomycin 440 mg IV with hemodialysis stopped yesterday and Levaquin stopped 08/07 s/p cleaning of wound rt leg good UOP follow labs ARF Nonoliguric Follow urine out put and BMP. (2) Compartment syndrome of right lower extremity Plan: Status post surgery (3) UTI (urinary tract infection) Plan: treated (4) Severe sepsis Plan: Status post fasciotomy right leg Problem Qualifiers (1) Acute kidney failure: Qualified Code: N17.9 - Acute renal failure, unspecified acute renal failure type Chance,Sajid MD Aug 10, 2016 11:11
--- NOTE | 2016-08-10 13:52 | HHI.GIFU ---
Subjective Remarks Up in chair. No complaints. Stated she had liver biopsy yesterday, but no note /imaging/pathology in chart. Called IR and they state that this is on hold until Tuesday secondary to patient having ASA. Objective Vitals I&O Vital Signs Date Time Temp Pulse Resp B/P Pulse Ox O2 Delivery O2 Flow Rate FiO2 08/10/16 12:01 98.9 78 16 115/77 94 08/10/16 07:53 99.9 81 16 109/74 94 08/10/16 04:00 99.2 79 16 117/80 95 08/10/16 00:00 99.3 77 16 117/81 96 08/09/16 20:00 99.2 86 16 121/80 95 08/09/16 20:00 83 08/09/16 16:00 99.0 70 16 130/78 97 I/O 08/09/16 08/09/16 08/09/16 08/10/16 08/10/16 08/10/16 06:59 14:59 22:59 06:59 14:59 22:59 Intake Total 0 ml 0 ml 240 ml 240 ml Output Total 775 ml 350 ml 325 ml 400 ml Balance -775 ml -350 ml -85 ml -160 ml Intake Oral 0 ml 0 ml 240 ml 240 ml IV Total 0 ml 0 ml 0 ml Output Urine Total 575 ml 200 ml 250 ml 300 ml Drainage Total 200 ml 150 ml 75 ml 100 ml # Bowel Movements 0 0 # Sanitary Pads 1 Pads Laboratory Date/Time Procedure Status Source Growth 08/09/16 23:50 Gram Stain - Final Resulted Sputum Expectorated Sputum 08/09/16 23:50 Sputum Culture - Preliminary Resulted Sputum Expectorated Sputum IMMATURE GROWTH - REINCUBATE Imaging Last Impressions Chest X-Ray 08/09/16 0000 Signed Impressions: Service Date/Time: Tuesday, August 09, 2016 19:30 - CONCLUSION: 1. Interval placement of double-lumen central venous line. 2. Hazy opacity at the lung bases with mild blunting of the left costophrenic angle which could indicate a small effusion. Nael Zuñiga MD Catheter Placement X-Ray 07/30/16 0000 Signed Impressions: Service Date/Time: Saturday, July 30, 2016 14:14 - CONCLUSION: Uncomplicated line placement as above. Judson Cee MD Brain MRI 07/29/16 0000 Signed Impressions: Service Date/Time: July 13:34 - CONCLUSION: 1. Abnormal examination of the brain demonstrating areas of T2 signal and abnormal diffusion signal involving the globus pallidus bilaterally and the mesial temporal lobes bilaterally. Primary considerations would include carbon monoxide poisoning versus other partial anoxic brain injury. Please see above discussion. Aamir Narayanan MD Abdomen Ultrasound 07/26/16 0000 Signed Impressions: Service Date/Time: Tuesday, July 26, 2016 10:21 - CONCLUSION: 1. Small amount of free fluid adjacent to the lower poles of both kidneys. 2. Obscuration of the head of the pancreas, distal IVC and aorta due to overlying bowel gas. 3. Otherwise negative. Judson Cee MD Lower Extremity CT 07/25/16 0000 Signed Impressions: Service Date/Time: Monday, July 25, 2016 18:54 - CONCLUSION: Extensive nonspecific myositis of the right thigh, also involves gluteus medius and minimus proximally and at least medial gastrocnemius below the knee. Infectious/inflammatory and ischemic etiologies would be in the differential. No gas bubbles are seen to substantiate necrotizing fasciitis. No organized/drainable abscess. Glenroy Sheffield MD Hip and Pelvis X-Ray 07/25/16 0000 Signed Impressions: Service Date/Time: Monday, July 25, 2016 16:52 - CONCLUSION: Intact pelvis and right hip. Nonspecific surrounding soft tissue swelling Glenroy Sheffeild MD Head CT 07/25/16 0000 Signed Impressions: Service Date/Time: Monday, July 25, 2016 14:38 - CONCLUSION: Negative noncontrast head CT. Glenroy Sheffield MD Chest CT 07/25/16 0000 Signed Impressions: Service Date/Time: Monday, July 25, 2016 16:37 - CONCLUSION: Focal dense consolidation right middle lobe, nonspecific but most likely infectious or inflammatory. Also a 3 mm right basilar pulmonary nodule Followup noncontrast chest CT in a few months recommended to confirm resolution/stability. Glenroy Sheffield MD Abdomen/Pelvis CT 07/25/16 0000 Signed Impressions: Service Date/Time: Monday, July 25, 2016 16:37 - CONCLUSION: 1. Fatty liver and 21 mm right ovarian cyst. Otherwise, no acute abnormality seen within the abdomen or pelvis. 2. Swollen, heterogeneous right hip musculature, primarily gluteus medius and minimus, rectus femoris and vastus lateralis and the adductor muscles. This is nonspecific but suggests a subacute hematoma of these structures. Nothing organized/measurable. 3. Chronic L5 pars defects with grade 2 L5/S1 spondylolisthesis. Glenroy Sheffield MD Physical Exam CHEST: CTA CARDIAC: RRR ABDOMEN: Soft, nondistended, nontender; no hepatosplenomegaly; bowel sounds are present in all four quadrants. EXTREMITIES: No clubbing, cyanosis. Right thigh lateral wound with wound vac d/ i. RLE edema SKIN: Normal; no rash; no jaundice. GLASSWARE ENGRAVER: No focal deficits; alert and oriented times three. Assessment and Plan Plan ASSESSMENT: - Elevated LFTs, possibly combination of shocked liver and rhabdomyolysis. Abdomen Ultrasound (07/26/16)----> 1. Small amount of free fluid adjacent to the lower poles of both kidneys. 2. Obscuration of the head of the pancreas, distal IVC and aorta due to overlying bowel gas. 3. Otherwise negative. Abdomen/Pelvis CT (07/25/16)----> 1. Fatty liver and 21 mm right ovarian cyst. Otherwise, no acute abnormality seen within the abdomen or pelvis. 2. Swollen, heterogeneous right hip musculature, primarily gluteus medius and minimus, rectus femoris and vastus lateralis and the adductor muscles. This is nonspecific but suggests a subacute hematoma of these structures. Nothing organized/measurable. 3. Chronic L5 pars defects with grade 2 L5/S1 spondylolisthesis. Toxicology report---- > Acetaminophen less than 2.0, Salicylates less than 1.7, Ethyl alcohol 28, toxicology screen negative- although the patient reports that she does use pills and smoke marijuana. Hepatitis panel negative. She does have documented episodes of hypotension as well as rhabdomyolysis. JORY negative, ASMA negative, AMA negative, Ferritin 400, Iron saturation 81.4 (post transfusion), Ceruloplasmin 9, ALpha 1 Antitrypsin 95. 24 hour urine for copper 27, copper concentration 46- normal limits. 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 LFTs stable. Stated she had liver biopsy yesterday, but no note/imaging/pathology in chart. Called IR and they state that this is on hold until Tuesday secondary to patient having ASA. - Low Ceruloplasmin level 9. Brain MRI (07/29/16)----> 1. Abnormal examination of the brain demonstrating areas of T2 signal and abnormal diffusion signal involving the globus pallidus bilaterally and the mesial temporal lobes bilaterally. Primary considerations would include carbon monoxide poisoning versus other partial anoxic brain injury. Please see above discussion. Of note, Branden's disease was also mentioned in the differential. 24 hour urine for copper 27, copper concentration 46- normal limits. S/p ophthalmology slit lamp exam-----> normal exam. Liver biopsy. - Low Alpha 1 Antitrypsin 95. Rpt. high- 192, Phenotype MM - AMS, IMPROVED. Xifaxan, Lactulose. - Rhabdomyolysis. IMPROVED - Compartment syndrome, s/p fasciotomy, wound vac placement. Went to OR 08/06 for washout of her fasciotomy site of the right thigh with placement of a acellular xenograft - Sepsis, elevated lactic acid, likely t/t right thigh compartment syndrome. - Coagulopathy, IMPROVED - Anemia, stable. - CARLITO, HD per renal Plan: - JACY - Liver biopsy Tuesday (pt has been on asa) - Monitor LFTs - Monitor HH - Transfuse as necessary - Avoid hypotension - Avoid hepatotoxins - Supportive care - Further recommendations to follow based on results of above - PT seen and examined by Dr. Walton and myself and this note is written on her behalf Sangeeta Dixon Aug 10, 2016 13:52
--- NOTE | 2016-08-10 14:14 | MP ---
cc: SAW JOYA DATE OF SURGERY: 08/06/2016 PREOPERATIVE DIAGNOSIS Status post large fasciotomy of the right hip and thigh due to compartment syndrome. POSTOPERATIVE DIAGNOSIS Status post large fasciotomy of the right hip and thigh due to compartment syndrome. OPERATIVE PROCEDURE Washout of the fasciotomy site and placement of acellular matrix coverage with wound VAC placement. SURGEON Dr. Joya HARBOR DEPARTMENT MANAGER Dr. Ferguson ANESTHESIA General. ESTIMATED BLOOD LOSS 50 cc. DETAILS OF PROCEDURE The patient is prepped and draped in the usual fashion and after the old wound VAC is removed from the right thigh, meticulous hemostasis is obtained and then acellular skin xenograft is applied. Three sheaths of the graft are applied which are cut in pieces to fit the area. Prior to placing this the powder xenograft is applied for better adherence. Once the ACell is in place it is covered with a Vaseline dressing, K-Y jelly and finally a white wound VAC is placed on top of it. In addition several stitches are placed proximally and distally using 0 nylon to approximate the skin in order to make this area of coverage smaller. The wound VAC will stay in place for nine days after which it will be removed, perhaps replaced, or grafted. The patient tolerated the procedure well and was taken out of the operating room in stable condition. Saw ELDER/NICOL /2:52 PM /2:04 PM
--- NOTE | 2016-08-10 15:45 | HHI.PR ---
Subjective Remarks Follow-up for fever No overnight events, no fever. Denies any chest pain, shortness of breath, nausea or vomiting. Has cough but nonproductive. Objective Vitals Vital Signs Date Time Temp Pulse Resp B/P Pulse Ox O2 Delivery O2 Flow Rate FiO2 08/10/16 12:01 98.9 78 16 115/77 94 08/10/16 07:53 99.9 81 16 109/74 94 08/10/16 04:00 99.2 79 16 117/80 95 08/10/16 00:00 99.3 77 16 117/81 96 08/09/16 20:00 99.2 86 16 121/80 95 08/09/16 20:00 83 08/09/16 16:00 99.0 70 16 130/78 97 I/O 08/09/16 08/09/16 08/09/16 08/10/16 08/10/16 08/10/16 06:59 14:59 22:59 06:59 14:59 22:59 Intake Total 0 ml 0 ml 240 ml 240 ml 480 ml Output Total 775 ml 350 ml 325 ml 400 ml 750 ml Balance -775 ml -350 ml -85 ml -160 ml -270 ml Intake Oral 0 ml 0 ml 240 ml 240 ml 480 ml IV Total 0 ml 0 ml 0 ml Output Urine Total 575 ml 200 ml 250 ml 300 ml 750 ml Drainage Total 200 ml 150 ml 75 ml 100 ml # Bowel Movements 0 0 # Sanitary Pads 1 Pads Result Diagram: 08/08/16 0419 08/09/16 0438 Objective Remarks GENERAL: 30-year-old female. Not in distress. Central line right internal jugular. CARDIOVASCULAR: RRR Faint systolic 2/6 murmur RESPIRATORY: clear to auscultation w no wheezing this morning. GASTROINTESTINAL: Abdomen soft, non-tender, nondistended. Hypoactive bowel sounds. Abrasions. MUSCULOSKELETAL: Right thigh currently with wound VAC lateral aspect. Right hip tender with restricted mobility. Positive peripheral edema right greater than left lower extremity, 2+. NEUROLOGICAL: Awake and alert to person, place and year. Motor grossly within normal limits. Procedures Status post right leg washout, senna graft placement and partial wound closure on 08/06. A/P Problem List: (1) Compartment syndrome of right lower extremity ICD Code: T79.A21A Status: Acute (2) Rhabdomyolysis ICD Code: M62.82 Status: Resolved (3) Severe sepsis ICD Code: A41.9 Status: Resolved (4) Altered mental status ICD Code: R41.82 Status: Resolved (5) Drug overdose ICD Code: T50.901A Status: Resolved (6) Elevated troponin ICD Code: R79.89 Status: Resolved (7) Severe metabolic acidosis Status: Resolved (8) Lactic acidosis ICD Code: E87.2 Status: Resolved (9) Transaminitis ICD Code: R74.0 Status: Acute (10) Hypocalcemia ICD Code: E83.51 Status: Acute (11) Hyperkalemia ICD Code: E87.5 Status: Acute (12) ST elevation ICD Code: R94.31 Status: Acute (13) Acute kidney failure ICD Code: N17.9 Status: Acute (14) Leukocytosis ICD Code: D72.829 Status: Resolved (15) Small right middle lobe consolidation Status: Acute (16) Hip hematoma, right ICD Code: S70.01XA Status: Acute Assessment and Plan Altered mental status Polysubstance abuse with drug overdose including cocaine/heroin Right upper extremity numbness History of THC use EtOH -Continue to Watch for alcohol and drug withdrawal, Use PRN Ativan for anxiety and oxycodone/morphine as needed for pain -CT of the head 07/25 revealed no acute intracranial findings. Continue aspirin , thiamine and multivitamins. -MRI brain 07/29 revealed T2 signal abnormality globus pallidus and mesial temporal lobe bilaterally. - EEG 07/30 revealed slowing system with moderate diffuse encephalopathy. No seizure activity. - Psychiatry clear to [facility] act 07/29 - neurology evaluated the patient and feels that MRI results are from drug overdose. GI getting ophthalmology consult for eval w slit lamp for Bre- Sylvia rings - 08/05 ophtalmology exam negative for Bre-Sylvia rings. Mild Respiratory insufficiency secondary to pneumonia/metabolic acidosis Small consolidation right middle lobe Right basilar pulmonary nodule 3 mm - follow-up CT chest 3 months recommended Ongoing tobaccoism -now on RA, has cough but nonproductive, continue incentive spirometry, duo nebs. -CT chest 07/25 revealed right middle lobe infiltrate along with 3 mm right basilar pulmonary nodule. -Chest x-ray 07/26 reveals no significant cardio pulmonary findings Elevated troponin Severe lactic acidosis - resolved ST elevation in V1 and V2 -Continue antibiotics,2d echo revealed EF 60-65%. NRWMA. Lactic acid has cleared on Norvasc 10 mg daily for hypertension, 0.1 mg po BID, with as needed hydralazine and Nitropaste, d/c labetalol BP stable. Continue Norvasc, clonidine. PRN hydralazine and nitropaste. GI: Transaminitis Rhabdomyolysis Hyperammonia -Transaminitis most likely secondary to shock/rhabdo -CT of the abdomen and pelvis shows fatty liver/21 mm right ovarian cyst -Negative hepatitis panel - Xifaxan 550 twice a day/lactulose 30 3 times a day for elevated ammonia. - Noted low ceruloplasmin. 9. 24 hr Urine copper 24, for liver biopsy on Tuesday /Renal: Acute kidney failure Acute rhabdomyolysis - on normal saline down to 70cc an hour -07/26 renal ultrasound revealed fluid of at poles of bilateral kidneys otherwise negative - Strict intake output. - Urine electrolytes intrinsic renal process/urine eosinophils negative. - Nephrology following. Still making some urine but noted to be decreased by RN. getting HD - Noted decreased C3 of 19/C4 5, monitor creatinine. 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 Small consolidation in the right middle lobe unlikely to be source of severe sepsis, Levaquin and Zosyn stopped for now. Rule out line infection. Infectious disease following. Previous urine culture grew Escherichia coli. Macrocytic anemia Thrombocytopenia / Acute post op anemia/ acute blood loss anemia -Monitor CBC, CMP, - Transfused total 4 units PRBCs, 2 pack platelets, 2 FFP 2 cryo-since admission - Hb 7.3 today. monitor closely. transfuse if <7.0 - Status post transfusion, monitor. Right medial/lateral thigh compartment syndrome L5/S1 spondylolisthesis Status post day [address] Turner - wound VAC placement PROPH: -Left lower extremity SCDs. Hold subcutaneous heparin given drop in hemoglobin. Problem Qualifiers (1) Drug overdose: Qualified Code: T50.904A - Drug overdose, undetermined intent, initial encounter (2) Acute kidney failure: Qualified Code: N17.9 - Acute renal failure, unspecified acute renal failure type (3) Leukocytosis: Qualified Code: D72.829 - Leukocytosis, unspecified type Celine Rdz MD Aug 10, 2016 15:45
--- NOTE | 2016-08-10 16:40 | PD.CAR.PN ---
CVT Progress Note Subjective/Hospital Course: Patient with clinical findings of medial and lateral thigh compartment syndrome For OR now Thanks Delaney 07/26/16 Patient underwent yesterday and medial and lateral fasciotomy of the thigh debridement Today she underwent washout the both, closure of the medial fasciotomy skin and wound VAC placement on lateral fasciotomy The lateral fasciotomy will need wound VAC for but 2 weeks and then this can be covered with the partial-thickness skin graft by plastic surgery 07/27/16 Status post the thigh compartment syndrome with medial and lateral fasciotomy of the right leg Yesterday patient went for washout closure and drainage of the medial fasciotomy site while the lateral fasciotomy from hip to the knee remains open Wound VAC in place Hemoglobin now stable and there is no other source of bleeding Patient was in active DIC and fibrinolysis for the first 48 hours and this is now abating Agree with blood and blood products administration Platelets remain stable and unless these drop on the 30,000 would probably not transfuse Patient can be out of bed and should be bearing weight on this leg as much as possible 07/28/16 CHAZ drainage from the medial closure of the thighs decreased but I will leave it in till the swelling decreases and the third space abates for otherwise patient will develop a seroma in this area Lateral incision now covered with a wound VAC is draining minimally Hemoglobin remains stable Plan Starting tomorrow will have wound care assist with changing wound VAC at the bedside and I will consult plastic surgery for grafting of the wound in the near future 07/29/16 Medial compartment is closed and drainage is minimal so we will DC CHAZ Lateral thigh compartment is open clean and we will start wound VAC changes today Eventually patient will go to the OR for another washout and perhaps little more closure of this area but for the most part she will need a skin grafting of this area 07/30/2016 Medial incision is clean and dry Lateral incision wound VAC has been changed yesterday and he looks nice and clean and granulating nicely Patient will need several wound VAC exchange to before graft can be placed in this area Continue care Patient can transfer to the floor from my point 08/05/16 The patient will undergo tomorrow placement of acellular matrix xenograft in the operating room Wound VAC will then remain on it for about 10 days and then after that patient can be grafted This procedure should take about 30 minutes and then patient will be able to go to rehabilitation or even [place] for about 10 days and then return to us for grafting 08/07/16 Patient underwent yesterday washout of her fasciotomy site of the right thigh with placement of a acellular xenograft to improve granulation and the allow for eventual partial-thickness skin graft placement The drainage from the wound VAC at this point will be copious considering the inflammatory reaction that the xenograft induces so this is expected. In addition patient dropped hemoglobin and will be given 2 units of blood The wound VAC will stay on for about 9 days at this point so patient can either stay in our hospital or be transferred possibly to [place] till the time comes to remove the wound VAC for it will have to be done in the operating room At that time area will be ready for grafting or he may need another 10 days of xenograft is a granulation is not sufficient I will consult Dr. Juares to see the patient for skin grafting when the time comes 08/10/16 Wound VAC is in position and drainage has now significantly decreased Patient is excellent distal pulses and leg is warm Patient could move to [place] from my point till the time comes to remove the wound VAC is another week Nothing to add to care let this time Objective: Vital Signs Date Time Temp Pulse Resp B/P Pulse Ox O2 Delivery O2 Flow Rate FiO2 08/10/16 16:00 98.8 80 16 108/74 92 08/10/16 12:01 98.9 78 16 115/77 94 08/10/16 07:53 99.9 81 16 109/74 94 08/10/16 04:00 99.2 79 16 117/80 95 08/10/16 00:00 99.3 77 16 117/81 96 08/09/16 20:00 99.2 86 16 121/80 95 08/09/16 20:00 83 Result Diagram: 08/08/16 0419 08/09/16 0438 (1) Drug overdose (2) Hypocalcemia (3) SIRS (systemic inflammatory response syndrome) (4) Renal failure (5) Hyperkalemia (6) Lactic acidosis (7) Altered mental status (8) Severe sepsis (9) Elevated troponin (10) Severe metabolic acidosis (11) Acute kidney failure (12) Leukocytosis (13) Hip hematoma, right (14) Small right middle lobe consolidation (15) Rhabdomyolysis (16) Compartment syndrome of right lower extremity Problem Qualifiers (1) Drug overdose: Qualified Code: T50.904A - Drug overdose, undetermined intent, initial encounter (2) Acute kidney failure: Qualified Code: N17.9 - Acute renal failure, unspecified acute renal failure type (3) Leukocytosis: Qualified Code: D72.829 - Leukocytosis, unspecified type Saw Turner MD Aug 10, 2016 16:40
[2016-08-11] VITALS (7 sets, daily range): BP systolic 109–132; BP diastolic 61–84; PULSE 75–84; RESP 14–21; TEMP 98.1–100.2; O2SAT 95–99
[2016-08-11] MEDS: LACTATED RINGER'S 1000 ML IV SCH ×2 (02:14→21:08)
[2016-08-11] MEDS: CHLORHEXIDINE GLUCONATE 2 % 1 PACK (2 CLOTHS) TOP SCH ×2 (03:51→21:07)
[2016-08-11 06:05] LABS: AUTOMATED NEUTROPHIL # 4.4 TH/MM3 (1.8-7.7); BASOPHIL % 0.7 % (0.0-2.0); EOSINOPHIL # 0.1 TH/MM3 (0-0.4); EOSINOPHIL % 1.4 % (0.0-4.0); HEMATOCRIT 27.9 % (35.0-46.0); HEMO FLAGS DIFF FINAL; LYMPH % 15.1 % (9.0-44.0); LYMPHOCYTE # 0.9 TH/MM3 (1.0-4.8); MEAN CELL VOLUME 89.3 FL (80.0-100.0); MEAN CORPUSCULAR HEMOGLOBIN 31.4 PG (27.0-34.0); MEAN CORPUSCULAR HGB CONC 35.2 % (32.0-36.0); MONO % 9.2 % (0.0-8.0); NEUT % 73.6 % (16.0-70.0); PLATELET COUNT 141 TH/MM3 (150-450); RED BLOOD COUNT 3.12 MIL/MM3 (4.00-5.30); RED CELL DISTRIBUTION WIDTH 16.4 % (11.6-17.2)
[2016-08-11 06:38] LABS: BICARBONATE 28.7 MEQ/L (21.0-32.0); POTASSIUM 3.6 MEQ/L (3.5-5.1)
[2016-08-11] MEDS: LACTULOSE SYRUP 20 GM/30 ML CUP PO SCH ×2 (08:20→21:05)
[2016-08-11] MEDS: FOLIC ACID 1 MG TAB PO SCH (08:21)
[2016-08-11] MEDS: FAMOTIDINE 20 MG TAB PO SCH ×2 (08:21→21:05)
[2016-08-11] MEDS: THIAMINE HCL 100 MG TAB PO SCH (08:21)
[2016-08-11] MEDS: cloNIDine HCL 0.1 MG TAB PO SCH ×2 (08:21→21:00)
[2016-08-11] MEDS: SODIUM CHLORIDE 0.9% FLUSH 5 ML FLUSH IV FLUSH SCH ×2 (08:21→21:07)
[2016-08-11] MEDS: MULTIVITAMIN TAB PO SCH (08:21)
[2016-08-11] MEDS: RIFAXIMIN 550 MG TAB PO SCH ×2 (08:21→21:05)
--- NOTE | 2016-08-11 09:04 | PD.CARD.PN ---
Subjective Subjective Remarks alert in nad Objective Vital Signs / I&O Vital Signs Date Time Temp Pulse Resp B/P Pulse Ox O2 Delivery O2 Flow Rate FiO2 08/11/16 04:00 99.0 84 21 120/79 96 08/11/16 00:14 98.1 76 20 122/84 99 08/10/16 22:00 79 08/10/16 22:00 Room Air 08/10/16 20:00 98.7 78 21 114/76 96 08/10/16 16:00 98.8 80 16 108/74 92 08/10/16 12:01 98.9 78 16 115/77 94 I/O 08/10/16 08/10/16 08/10/16 08/11/16 08/11/16 08/11/16 07:00 15:00 23:00 07:00 15:00 23:00 Intake Total 240 ml 480 ml 240 ml 240 ml Output Total 400 ml 750 ml 425 ml 350 ml Balance -160 ml -270 ml -185 ml -110 ml Intake Oral 240 ml 480 ml 240 ml 240 ml IV Total 0 ml 0 ml 0 ml Output Urine Total 300 ml 750 ml 400 ml 300 ml Drainage Total 100 ml 25 ml 50 ml # Bowel Movements 0 0 0 Physical Exam GENERAL: SKIN: Warm and dry. HEAD: Normocephalic. EYES: No scleral icterus. No injection or drainage. NECK: Supple, trachea midline. No JVD or lymphadenopathy. CARDIOVASCULAR: Regular rate and rhythm without murmurs, gallops, or rubs. RESPIRATORY: Breath sounds equal bilaterally. No accessory muscle use. GASTROINTESTINAL: Abdomen soft, non-tender, nondistended. MUSCULOSKELETAL: No cyanosis, or edema. BACK: Nontender without obvious deformity. No CVA tenderness. GENERAL: SKIN: Warm and dry. HEAD: Normocephalic. EYES: No scleral icterus. No injection or drainage. NECK: Supple, trachea midline. No JVD or lymphadenopathy. CARDIOVASCULAR: Regular rate and rhythm without murmurs, gallops, or rubs. RESPIRATORY: Breath sounds equal bilaterally. No accessory muscle use. GASTROINTESTINAL: Abdomen soft, non-tender, nondistended. MUSCULOSKELETAL: No cyanosis, or edema. BACK: Nontender without obvious deformity. No CVA tenderness. Laboratory Laboratory Tests Test 08/11/16 04:36 White Blood Count 6.0 TH/MM3 Red Blood Count 3.12 MIL/MM3 Hemoglobin 9.8 GM/DL Hematocrit 27.9 % Mean Corpuscular Volume 89.3 FL Mean Corpuscular Hemoglobin 31.4 PG Mean Corpuscular Hemoglobin 35.2 % Concent Red Cell Distribution Width 16.4 % Platelet Count 141 TH/MM3 Mean Platelet Volume 8.5 FL Neutrophils (%) (Auto) 73.6 % Lymphocytes (%) (Auto) 15.1 % Monocytes (%) (Auto) 9.2 % Eosinophils (%) (Auto) 1.4 % Basophils (%) (Auto) 0.7 % Neutrophils # (Auto) 4.4 TH/MM3 Lymphocytes # (Auto) 0.9 TH/MM3 Monocytes # (Auto) 0.5 TH/MM3 Eosinophils # (Auto) 0.1 TH/MM3 Basophils # (Auto) 0.0 TH/MM3 CBC Comment DIFF FINAL Differential Comment Sodium Level 139 MEQ/L Potassium Level 3.6 MEQ/L Chloride Level 102 MEQ/L Carbon Dioxide Level 28.7 MEQ/L Anion Gap 8 MEQ/L Blood Urea Nitrogen 26 MG/DL Creatinine 5.09 MG/DL Estimat Glomerular Filtration 10 ML/MIN Rate Random Glucose 91 MG/DL Calcium Level 8.0 MG/DL Assessment and Plan Problem List: (1) Drug overdose (2) Hypocalcemia (3) SIRS (systemic inflammatory response syndrome) (4) Renal failure (5) Hyperkalemia (6) Lactic acidosis (7) Altered mental status (8) Severe sepsis (9) Elevated troponin (10) Severe metabolic acidosis (11) Acute kidney failure (12) Leukocytosis (13) Hip hematoma, right (14) Small right middle lobe consolidation (15) Rhabdomyolysis (16) Compartment syndrome of right lower extremity Assessment and Plan 1.) Elevated troponin - suspect d/t global hypoperfusion d/t hypotension form sepsis, ef=65%, patient is assymptomatic, trop < 1, on aspirin 325 mg qd, d/t arf lhc/pci would be high risk for deterioration in renal function and potential need for temporary or permanent dialysis 2.) POD 10 - hemodynamically stable 3.) ARF - d/t rhabdomyolysis from compartment syndrome, dialysis per dr Fletcher, urine output @ 1450cc last 24 hours 4.) HTN - started on amlodipine 10 mg qd 5.) RLE pain - slight improvement 6.) Anemia - improved s/p transfusion Problem Qualifiers (1) Drug overdose: Qualified Code: T50.904A - Drug overdose, undetermined intent, initial encounter (2) Acute kidney failure: Qualified Code: N17.9 - Acute renal failure, unspecified acute renal failure type (3) Leukocytosis: Qualified Code: D72.829 - Leukocytosis, unspecified type Luis Eduardo Carter MD Aug 11, 2016 09:04
--- NOTE | 2016-08-11 11:19 | HHI.NPPN ---
Subjective History of Present Illness 30 year old female with drug OD, Rt thigh compartment syndrome s/p Fasciotomy, Rhabdomyolysis, ARF Additional Remarks Patient is alert, has pain in the Rt. leg. Review of Systems General Constitutional: Fatigue Musculoskeletal MS: Pain/Stiffness Objective Data Data 08/10/16 08/11/16 19:00 07:00 Intake Total 480 ml 480 ml Output Total 750 ml 775 ml Balance -270 ml -295 ml Intake Oral 480 ml 480 ml IV Total 0 ml Output Urine Total 750 ml 700 ml Drainage Total 75 ml # Bowel Movements 0 Vital Signs Date Time Temp Pulse Resp B/P Pulse Ox O2 Delivery O2 Flow Rate FiO2 08/11/16 08:00 98.5 84 15 112/68 95 08/11/16 04:00 99.0 84 21 120/79 96 08/11/16 00:14 98.1 76 20 122/84 99 08/10/16 22:00 79 08/10/16 22:00 Room Air 08/10/16 20:00 98.7 78 21 114/76 96 08/10/16 16:00 98.8 80 16 108/74 92 08/10/16 12:01 98.9 78 16 115/77 94 -: 08/11/16 0436 08/11/16 0436 Physical Exam General Appearance: No Acute Distress, Comfortable Neck Neck Exam: Neck Supple Pulmonary Resp Exam: Clear Bilaterally, Breath Sounds Equal Cardiology CV Exam: Regular, Normal Sinus Rhythm Gastrointestinal/Abdomen GI Exam: Soft, Non-Tender, Bowel Sounds Present Extremeties Extremities Exam: Trace Edema Extremeties Remarks Rt thigh vacuum dressing Neurologic Neuro Exam: Alert, Awake Assessment/Plan Problem List: (1) Acute kidney failure Plan: This is likely due to rhabdomyolysis and acute tubular necrosis increased drainage via leg s/p cleaning of wound rt leg good UOP follow labs ARF Nonoliguric seen during dialysis no fluid removal cr 5.09 may need a new vascath (2) Compartment syndrome of right lower extremity Plan: Status post surgery (3) UTI (urinary tract infection) Plan: treated (4) Severe sepsis Plan: Status post fasciotomy right leg Problem Qualifiers (1) Acute kidney failure: Qualified Code: N17.9 - Acute renal failure, unspecified acute renal failure type Vniny Fletcher MD Aug 11, 2016 11:19 Vinny Fletcher MD Aug 11, 2016 11:19
[2016-08-11] MEDS: GENTAMICIN SULFATE (DIALYSIS USE ONLY) 20 MG/2 ML VIAL OTHER PRN (11:34)
[2016-08-11] MEDS: HEPARIN SODIUM - IV 10,000 UNITS/10 ML VIAL IVF PRN (11:35)
--- NOTE | 2016-08-11 12:06 | HHI.PR ---
Subjective Remarks In bed, watching TV appears in nad. Says she has HD in the morning and she feels tired. No n/v/d/c. No headache. H/H is stable so far Objective Vitals Vital Signs Date Time Temp Pulse Resp B/P Pulse Ox O2 Delivery O2 Flow Rate FiO2 08/11/16 08:00 98.5 84 15 112/68 95 08/11/16 04:00 99.0 84 21 120/79 96 08/11/16 00:14 98.1 76 20 122/84 99 08/10/16 22:00 79 08/10/16 22:00 Room Air 08/10/16 20:00 98.7 78 21 114/76 96 08/10/16 16:00 98.8 80 16 108/74 92 I/O 08/10/16 08/10/16 08/10/16 08/11/16 08/11/16 08/11/16 07:00 15:00 23:00 07:00 15:00 23:00 Intake Total 240 ml 480 ml 240 ml 240 ml Output Total 400 ml 750 ml 425 ml 350 ml Balance -160 ml -270 ml -185 ml -110 ml Intake Oral 240 ml 480 ml 240 ml 240 ml IV Total 0 ml 0 ml 0 ml Output Urine Total 300 ml 750 ml 400 ml 300 ml Drainage Total 100 ml 25 ml 50 ml # Bowel Movements 0 0 0 Result Diagram: 08/11/16 0436 08/11/16 0436 Imaging Last Impressions Chest X-Ray 08/09/16 0000 Signed Impressions: Service Date/Time: Tuesday, August 09, 2016 19:30 - CONCLUSION: 1. Interval placement of double-lumen central venous line. 2. Hazy opacity at the lung bases with mild blunting of the left costophrenic angle which could indicate a small effusion. Nael Zuñiga MD Catheter Placement X-Ray 07/30/16 0000 Signed Impressions: Service Date/Time: Saturday, July 30, 2016 14:14 - CONCLUSION: Uncomplicated line placement as above. Judson Cee MD Brain MRI 07/29/16 0000 Signed Impressions: Service Date/Time: July 13:34 - CONCLUSION: 1. Abnormal examination of the brain demonstrating areas of T2 signal and abnormal diffusion signal involving the globus pallidus bilaterally and the mesial temporal lobes bilaterally. Primary considerations would include carbon monoxide poisoning versus other partial anoxic brain injury. Please see above discussion. Aamir Narayanan MD Abdomen Ultrasound 07/26/16 Signed Impressions: Service Date/Time: Tuesday, July 26, 2016 10:21 - CONCLUSION: 1. Small amount of free fluid adjacent to the lower poles of both kidneys. 2. Obscuration of the head of the pancreas, distal IVC and aorta due to overlying bowel gas. 3. Otherwise negative. Judson Cee MD Lower Extremity CT 07/25/16 0000 Signed Impressions: Service Date/Time: Monday, July 25, 2016 18:54 - CONCLUSION: Extensive nonspecific myositis of the right thigh, also involves gluteus medius and minimus proximally and at least medial gastrocnemius below the knee. Infectious/inflammatory and ischemic etiologies would be in the differential. No gas bubbles are seen to substantiate necrotizing fasciitis. No organized/drainable abscess. Glenroy Sheffield MD Hip and Pelvis X-Ray 07/25/16 Signed Impressions: Service Date/Time: Monday, July 25, 2016 16:52 - CONCLUSION: Intact pelvis and right hip. Nonspecific surrounding soft tissue swelling Glenroy Sheffield MD Head CT 07/25/16 0000 Signed Impressions: Service Date/Time: Monday, July 25, 2016 14:38 - CONCLUSION: Negative noncontrast head CT. Glenroy Sheffield MD Chest CT 07/25/16 0000 Signed Impressions: Service Date/Time: Monday, July 25, 2016 16:37 - CONCLUSION: Focal dense consolidation right middle lobe, nonspecific but most likely infectious or inflammatory. Also a 3 mm right basilar pulmonary nodule Followup noncontrast chest CT in a few months recommended to confirm resolution/stability. Glenroy Sheffield MD Abdomen/Pelvis CT 07/25/16 0000 Signed Impressions: Service Date/Time: Monday, July 25, 2016 16:37 - CONCLUSION: 1. Fatty liver and 21 mm right ovarian cyst. Otherwise, no acute abnormality seen within the abdomen or pelvis. 2. Swollen, heterogeneous right hip musculature, primarily gluteus medius and minimus, rectus femoris and vastus lateralis and the adductor muscles. This is nonspecific but suggests a subacute hematoma of these structures. Nothing organized/measurable. 3. Chronic L5 pars defects with grade 2 L5/S1 spondylolisthesis. Glenroy Sheffield MD Objective Remarks GENERAL: 30-year-old female. Not in distress. Central line right internal jugular. CARDIOVASCULAR: RRR Faint systolic 2/6 murmur RESPIRATORY: clear to auscultation w no wheezing this morning. GASTROINTESTINAL: Abdomen soft, non-tender, nondistended. Hypoactive bowel sounds. Abrasions. MUSCULOSKELETAL: Right thigh currently with wound VAC lateral aspect. Right hip tender with restricted mobility. Positive peripheral edema right greater than left lower extremity, 2+. NEUROLOGICAL: Awake and alert to person, place and year. Motor grossly within normal limits. Procedures Status post right leg washout, senna graft placement and partial wound closure on 08/06. A/P Problem List: (1) Compartment syndrome of right lower extremity ICD Code: T79.A21A Status: Acute (2) Rhabdomyolysis ICD Code: M62.82 Status: Resolved (3) Severe sepsis ICD Code: A41.9 Status: Resolved (4) Altered mental status ICD Code: R41.82 Status: Resolved (5) Drug overdose ICD Code: T50.901A Status: Resolved (6) Elevated troponin ICD Code: R79.89 Status: Resolved (7) Severe metabolic acidosis Status: Resolved (8) Lactic acidosis ICD Code: E87.2 Status: Resolved (9) Transaminitis ICD Code: R74.0 Status: Acute (10) Hypocalcemia ICD Code: E83.51 Status: Acute (11) Hyperkalemia ICD Code: E87.5 Status: Acute (12) ST elevation ICD Code: R94.31 Status: Acute (13) Acute kidney failure ICD Code: N17.9 Status: Acute (14) Leukocytosis ICD Code: D72.829 Status: Resolved (15) Small right middle lobe consolidation Status: Acute (16) Hip hematoma, right ICD Code: S70.01XA Status: Acute Assessment and Plan Altered mental status Polysubstance abuse with drug overdose including cocaine/heroin Right upper extremity numbness History of THC use EtOH -Continue to Watch for alcohol and drug withdrawal, Use PRN Ativan for anxiety and oxycodone/morphine as needed for pain -CT of the head 07/25 revealed no acute intracranial findings. Continue aspirin , thiamine and multivitamins. -MRI brain 07/29 revealed T2 signal abnormality globus pallidus and mesial temporal lobe bilaterally. - EEG 07/30 revealed slowing system with moderate diffuse encephalopathy. No seizure activity. - Psychiatry clear to [place] act 07/29 - neurology evaluated the patient and feels that MRI results are from drug overdose. GI getting ophthalmology consult for eval w slit lamp for Bre- Sylvia rings - 08/05 ophtalmology exam negative for Bre-Sylvia rings. Mild Respiratory insufficiency secondary to pneumonia/metabolic acidosis Small consolidation right middle lobe Right basilar pulmonary nodule 3 mm - follow-up CT chest 3 months recommended Ongoing tobaccoism -now on RA, has cough but nonproductive, continue incentive spirometry, duo nebs. -CT chest 07/25 revealed right middle lobe infiltrate along with 3 mm right basilar pulmonary nodule. -Chest x-ray 07/26 reveals no significant cardio pulmonary findings Elevated troponin Severe lactic acidosis - resolved ST elevation in V1 and V2 -Continue antibiotics,2d echo revealed EF 60-65%. NRWMA. Lactic acid has cleared on Norvasc 10 mg daily for hypertension, 0.1 mg po BID, with as needed hydralazine and Nitropaste, d/c labetalol BP stable. Continue Norvasc, clonidine. PRN hydralazine and nitropaste. GI: Transaminitis Rhabdomyolysis Hyperammonia -Transaminitis most likely secondary to shock/rhabdo -CT of the abdomen and pelvis shows fatty liver/21 mm right ovarian cyst -Negative hepatitis panel - Xifaxan 550 twice a day/lactulose 30 3 times a day for elevated ammonia. - Noted low ceruloplasmin. 9. 24 hr Urine copper 24, for liver biopsy on Tuesday /Renal: Acute kidney failure Acute rhabdomyolysis - on normal saline down to 70cc an hour -07/26 renal ultrasound revealed fluid of at poles of bilateral kidneys otherwise negative - Strict intake output. - Urine electrolytes intrinsic renal process/urine eosinophils negative. - Nephrology following. Still making some urine but noted to be decreased by RN. getting HD - Noted decreased C3 of 19/C4 5, monitor creatinine. [employer]: Right ovarian cyst Beta hCG 1 ID: Severe sepsis Escherichia coli UTI -Source likely secondary to right thigh compartment syndrome -Infectious disease following. Small consolidation in the right middle lobe unlikely to be source of severe sepsis, Levaquin and Zosyn stopped for now. Rule out line infection. Infectious disease following. Previous urine culture grew Escherichia coli. Macrocytic anemia Thrombocytopenia 12/ Acute post op anemia/ acute blood loss anemia -Monitor CBC, CMP, - Transfused total 4 units PRBCs, 2 pack platelets, 2 FFP 2 cryo-since admission - Hb 7.3 today. monitor closely. transfuse if <7.0 - Status post transfusion, monitor.. So far H/H stable. Right medial/lateral thigh compartment syndrome L5/S1 spondylolisthesis Status post day [address] Turner - wound VAC placement PROPH: -Left lower extremity SCDs. Hold subcutaneous heparin given drop in hemoglobin. Problem Qualifiers (1) Drug overdose: Qualified Code: T50.904A - Drug overdose, undetermined intent, initial encounter (2) Acute kidney failure: Qualified Code: N17.9 - Acute renal failure, unspecified acute renal failure type (3) Leukocytosis: Qualified Code: D72.829 - Leukocytosis, unspecified type Lashanda Lovelace MD Aug 11, 2016 12:06
--- NOTE | 2016-08-11 17:04 | HHI.GIFU ---
Subjective Remarks Resting in bed. No distress. Had HD earlier today. Liver biopsy planned for Tuesday. (Sangeeta Dixon) Objective Vitals I&O Vital Signs Date Time Temp Pulse Resp B/P Pulse Ox O2 Delivery O2 Flow Rate FiO2 08/11/16 16:00 98.6 75 14 110/61 97 08/11/16 12:00 99.1 83 16 132/82 97 08/11/16 08:00 98.5 84 15 112/68 95 08/11/16 04:00 99.0 84 21 120/79 96 08/11/16 00:14 98.1 76 20 122/84 99 08/10/16 22:00 79 08/10/16 22:00 Room Air 08/10/16 20:00 98.7 78 21 114/76 96 I/O 08/10/16 08/10/16 08/10/16 08/11/16 08/11/16 08/11/16 06:59 14:59 22:59 06:59 14:59 22:59 Intake Total 240 ml 480 ml 240 ml 240 ml 240 ml Output Total 400 ml 750 ml 425 ml 350 ml 600 ml Balance -160 ml -270 ml -185 ml -110 ml -360 ml Intake Oral 240 ml 480 ml 240 ml 240 ml 240 ml IV Total 0 ml 0 ml 0 ml Output Urine Total 300 ml 750 ml 400 ml 300 ml 600 ml Drainage Total 100 ml 25 ml 50 ml Hemodialysis 0 ml # Bowel Movements 0 0 0 0 Laboratory Laboratory Tests Test 08/11/16 04:36 White Blood Count 6.0 Red Blood Count 3.12 Hemoglobin 9.8 Hematocrit 27.9 Mean Corpuscular Volume 89.3 Mean Corpuscular Hemoglobin 31.4 Mean Corpuscular Hemoglobin 35.2 Concent Red Cell Distribution Width 16.4 Platelet Count 141 Mean Platelet Volume 8.5 Neutrophils (%) (Auto) 73.6 Lymphocytes (%) (Auto) 15.1 Monocytes (%) (Auto) 9.2 Eosinophils (%) (Auto) 1.4 Basophils (%) (Auto) 0.7 Neutrophils # (Auto) 4.4 Lymphocytes # (Auto) 0.9 Monocytes # (Auto) 0.5 Eosinophils # (Auto) 0.1 Basophils # (Auto) 0.0 CBC Comment DIFF FINAL Differential Comment Sodium Level 139 Potassium Level 3.6 Chloride Level 102 Carbon Dioxide Level 28.7 Anion Gap 8 Blood Urea Nitrogen 26 Creatinine 5.09 Estimat Glomerular Filtration 10 Rate Random Glucose 91 Calcium Level 8.0 Date/Time Procedure Status Source Growth 08/09/16 23:50 Gram Stain - Final Complete Sputum Expectorated Sputum 08/09/16 23:50 Sputum Culture - Final Complete Sputum Expectorated Sputum HEAVY GROWTH NORMAL RESPIRATORY MARI Imaging Last Impressions Chest X-Ray 08/09/16 0000 Signed Impressions: Service Date/Time: Tuesday, August 09, 2016 19:30 - CONCLUSION: 1. Interval placement of double-lumen central venous line. 2. Hazy opacity at the lung bases with mild blunting of the left costophrenic angle which could indicate a small effusion. Nael Zuñiga MD Catheter Placement X-Ray 07/30/16 0000 Signed Impressions: Service Date/Time: Saturday, July 30, 2016 14:14 - CONCLUSION: Uncomplicated line placement as above. Judson Cee MD Brain MRI 07/29/16 0000 Signed Impressions: Service Date/Time: July 13:34 - CONCLUSION: 1. Abnormal examination of the brain demonstrating areas of T2 signal and abnormal diffusion signal involving the globus pallidus bilaterally and the mesial temporal lobes bilaterally. Primary considerations would include carbon monoxide poisoning versus other partial anoxic brain injury. Please see above discussion. Aamir Narayanan MD Abdomen Ultrasound 07/26/16 0000 Signed Impressions: Service Date/Time: Tuesday, July 26, 2016 10:21 - CONCLUSION: 1. Small amount of free fluid adjacent to the lower poles of both kidneys. 2. Obscuration of the head of the pancreas, distal IVC and aorta due to overlying bowel gas. 3. Otherwise negative. Judson Cee MD Lower Extremity CT 07/25/16 0000 Signed Impressions: Service Date/Time: Monday, July 25, 2016 18:54 - CONCLUSION: Extensive nonspecific myositis of the right thigh, also involves gluteus medius and minimus proximally and at least medial gastrocnemius below the knee. Infectious/inflammatory and ischemic etiologies would be in the differential. No gas bubbles are seen to substantiate necrotizing fasciitis. No organized/drainable abscess. Glenroy Sheffield MD Hip and Pelvis X-Ray 07/25/16 0000 Signed Impressions: Service Date/Time: Monday, July 25, 2016 16:52 - CONCLUSION: Intact pelvis and right hip. Nonspecific surrounding soft tissue swelling Glenroy Sheffield MD Head CT 07/25/16 0000 Signed Impressions: Service Date/Time: Monday, July 25, 2016 14:38 - CONCLUSION: Negative noncontrast head CT. Glenroy Sheffield MD Chest CT 07/25/16 0000 Signed Impressions: Service Date/Time: Monday, July 25, 2016 16:37 - CONCLUSION: Focal dense consolidation right middle lobe, nonspecific but most likely infectious or inflammatory. Also a 3 mm right basilar pulmonary nodule Followup noncontrast chest CT in a few months recommended to confirm resolution/stability. Glenroy Sheffield MD Abdomen/Pelvis CT 07/25/16 0000 Signed Impressions: Service Date/Time: Monday, July 25, 2016 16:37 - CONCLUSION: 1. Fatty liver and 21 mm right ovarian cyst. Otherwise, no acute abnormality seen within the abdomen or pelvis. 2. Swollen, heterogeneous right hip musculature, primarily gluteus medius and minimus, rectus femoris and vastus lateralis and the adductor muscles. This is nonspecific but suggests a subacute hematoma of these structures. Nothing organized/measurable. 3. Chronic L5 pars defects with grade 2 L5/S1 spondylolisthesis. Glenroy Sheffield MD Physical Exam CHEST: CTA CARDIAC: RRR ABDOMEN: Soft, nondistended, nontender; no hepatosplenomegaly; bowel sounds are present in all four quadrants. EXTREMITIES: No clubbing, cyanosis. Right thigh lateral wound with wound vac d/ i. RLE edema SKIN: Normal; no rash; no jaundice. 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 (Sangeeta Dixon) Assessment and Plan Plan ASSESSMENT: - Elevated LFTs, possibly combination of shocked liver and rhabdomyolysis. Abdomen Ultrasound (07/26/16)----> 1. Small amount of free fluid adjacent to the lower poles of both kidneys. 2. Obscuration of the head of the pancreas, distal IVC and aorta due to overlying bowel gas. 3. Otherwise negative. Abdomen/Pelvis CT (07/25/16)----> 1. Fatty liver and 21 mm right ovarian cyst. Otherwise, no acute abnormality seen within the abdomen or pelvis. 2. Swollen, heterogeneous right hip musculature, primarily gluteus medius and minimus, rectus femoris and vastus lateralis and the adductor muscles. This is nonspecific but suggests a subacute hematoma of these structures. Nothing organized/measurable. 3. Chronic L5 pars defects with grade 2 L5/S1 spondylolisthesis. Toxicology report---- > Acetaminophen less than 2.0, Salicylates less than 1.7, Ethyl alcohol 28, toxicology screen negative- although the patient reports that she does use pills and smoke marijuana. Hepatitis panel negative. She does have documented episodes of hypotension as well as rhabdomyolysis. JORY negative, ASMA negative, AMA negative, Ferritin 400, Iron saturation 81.4 (post transfusion), Ceruloplasmin 9, ALpha 1 Antitrypsin 95. 24 hour urine for copper 27, copper concentration 46- normal limits. 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 LFTs have normalized. Liver biopsy is scheduled for Tuesday (ASA has to be held for 5 days). - Low Ceruloplasmin level 9. Brain MRI (07/29/16)----> 1. Abnormal examination of the brain demonstrating areas of T2 signal and abnormal diffusion signal involving the globus pallidus bilaterally and the mesial temporal lobes bilaterally. Primary considerations would include carbon monoxide poisoning versus other partial anoxic brain injury. Please see above discussion. Of note, Branden's disease was also mentioned in the differential. 24 hour urine for copper 27, copper concentration 46- normal limits. S/p ophthalmology slit lamp exam-----> normal exam. Liver biopsy. - Low Alpha 1 Antitrypsin 95. Rpt. high- 192, Phenotype MM - AMS, IMPROVED. Xifaxan, Lactulose. - Rhabdomyolysis. IMPROVED - Compartment syndrome, s/p fasciotomy, wound vac placement. Went to OR 08/06 for washout of her fasciotomy site of the right thigh with placement of a acellular xenograft - Sepsis, elevated lactic acid, likely t/t right thigh compartment syndrome. - Coagulopathy, IMPROVED - Anemia, stable. - CARLITO, HD per renal Plan: - JACY - Liver biopsy Tuesday (pt has been on asa) - Monitor LFTs - Monitor HH - Transfuse as necessary - Avoid hypotension - Avoid hepatotoxins - Supportive care - Further recommendations to follow based on results of above - PT seen and examined by Dr. Walton and myself and this note is written on her behalf (Sangeeta Dixon) Sangeeta Dixon Aug 11, 2016 17:04 Lynnette Walton MD Aug 12, 2016 05:55
[2016-08-12] VITALS (7 sets, daily range): BP systolic 112–125; BP diastolic 77–88; PULSE 74–87; RESP 16–20; TEMP 97.8–99.8; O2SAT 95–97
[2016-08-12] MEDS: FOLIC ACID 1 MG TAB PO SCH (09:10)
[2016-08-12] MEDS: RIFAXIMIN 550 MG TAB PO SCH ×2 (09:10→20:46)
[2016-08-12] MEDS: MULTIVITAMIN TAB PO SCH (09:10)
[2016-08-12] MEDS: THIAMINE HCL 100 MG TAB PO SCH (09:10)
[2016-08-12] MEDS: cloNIDine HCL 0.1 MG TAB PO SCH ×2 (09:10→20:46)
[2016-08-12] MEDS: SODIUM CHLORIDE 0.9% FLUSH 5 ML FLUSH IV FLUSH SCH ×2 (09:11→20:47)
[2016-08-12] MEDS: LACTULOSE SYRUP 20 GM/30 ML CUP PO SCH ×2 (09:11→20:47)
[2016-08-12] MEDS: FAMOTIDINE 20 MG TAB PO SCH ×2 (09:12→20:46)
--- NOTE | 2016-08-12 13:40 | HHI.NPPN ---
Subjective History of Present Illness 30 year old female with drug OD, Rt thigh compartment syndrome s/p Fasciotomy, Rhabdomyolysis, ARF Additional Remarks Patient is alert, has pain in the Rt. leg. Review of Systems General Constitutional: Fatigue Musculoskeletal MS: Pain/Stiffness Objective Data Data 08/11/16 08/12/16 18:59 06:59 Intake Total 240 ml 360 ml Output Total 600 ml 1300 ml Balance -360 ml -940 ml Intake Oral 240 ml 360 ml IV Total 0 ml Output Urine Total 600 ml 1150 ml Drainage Total 150 ml Hemodialysis 0 ml # Bowel Movements 0 0 Vital Signs Date Time Temp Pulse Resp B/P Pulse Ox O2 Delivery O2 Flow Rate FiO2 08/12/16 12:00 97.8 74 16 112/80 96 08/12/16 08:00 98.6 80 16 125/88 95 08/12/16 07:50 82 08/12/16 04:00 98.4 74 20 124/80 97 08/12/16 00:00 99.8 75 20 115/77 97 08/11/16 20:11 83 08/11/16 20:00 100.2 78 21 109/70 96 08/11/16 16:00 98.6 75 14 110/61 97 -: 08/11/16 0436 08/11/16 0436 Physical Exam General Appearance: No Acute Distress, Comfortable Neck Neck Exam: Neck Supple Pulmonary Resp Exam: Clear Bilaterally, Breath Sounds Equal Cardiology CV Exam: Regular, Normal Sinus Rhythm Gastrointestinal/Abdomen GI Exam: Soft, Non-Tender, Bowel Sounds Present Extremeties Extremities Exam: Trace Edema Extremeties Remarks Rt thigh vacuum dressing Neurologic Neuro Exam: Alert, Awake Assessment/Plan Problem List: (1) Acute kidney failure Plan: This is likely due to rhabdomyolysis and acute tubular necrosis doing about same HD M,W,F (2) Compartment syndrome of right lower extremity Plan: Status post surgery (3) UTI (urinary tract infection) Plan: treated (4) Severe sepsis Plan: Status post fasciotomy right leg Problem Qualifiers (1) Acute kidney failure: Qualified Code: N17.9 - Acute renal failure, unspecified acute renal failure type Vinny Fletcher MD Aug 12, 2016 13:40
--- NOTE | 2016-08-12 13:48 | PD.CARD.PN ---
Subjective Subjective Remarks alert in nad Objective Vital Signs / I&O Vital Signs Date Time Temp Pulse Resp B/P Pulse Ox O2 Delivery O2 Flow Rate FiO2 08/12/16 12:00 97.8 74 16 112/80 96 08/12/16 08:00 98.6 80 16 125/88 95 08/12/16 07:50 82 08/12/16 04:00 98.4 74 20 124/80 97 08/12/16 00:00 99.8 75 20 115/77 97 08/11/16 20:11 83 08/11/16 20:00 100.2 78 21 109/70 96 08/11/16 16:00 98.6 75 14 110/61 97 I/O 08/11/16 08/11/16 08/11/16 08/12/16 08/12/16 08/12/16 07:00 15:00 23:00 07:00 15:00 23:00 Intake Total 240 ml 240 ml 240 ml 120 ml Output Total 350 ml 600 ml 200 ml 1100 ml Balance -110 ml -360 ml 40 ml -980 ml Intake Oral 240 ml 240 ml 240 ml 120 ml IV Total 0 ml 0 ml 0 ml Output Urine Total 300 ml 600 ml 150 ml 1000 ml Drainage Total 50 ml 50 ml 100 ml Hemodialysis 0 ml # Bowel Movements 0 0 0 0 Physical Exam GENERAL: SKIN: Warm and dry. HEAD: Normocephalic. EYES: No scleral icterus. No injection or drainage. NECK: Supple, trachea midline. No JVD or lymphadenopathy. CARDIOVASCULAR: Regular rate and rhythm without murmurs, gallops, or rubs. RESPIRATORY: Breath sounds equal bilaterally. No accessory muscle use. GASTROINTESTINAL: Abdomen soft, non-tender, nondistended. MUSCULOSKELETAL: No cyanosis, or edema. BACK: Nontender without obvious deformity. No CVA tenderness. GENERAL: SKIN: Warm and dry. HEAD: Normocephalic. EYES: No scleral icterus. No injection or drainage. NECK: Supple, trachea midline. No JVD or lymphadenopathy. CARDIOVASCULAR: Regular rate and rhythm without murmurs, gallops, or rubs. RESPIRATORY: Breath sounds equal bilaterally. No accessory muscle use. GASTROINTESTINAL: Abdomen soft, non-tender, nondistended. MUSCULOSKELETAL: No cyanosis, or edema. BACK: Nontender without obvious deformity. No CVA tenderness. Assessment and Plan Problem List: (1) Drug overdose (2) Hypocalcemia (3) SIRS (systemic inflammatory response syndrome) (4) Renal failure (5) Hyperkalemia (6) Lactic acidosis (7) Altered mental status (8) Severe sepsis (9) Elevated troponin (10) Severe metabolic acidosis (11) Acute kidney failure (12) Leukocytosis (13) Hip hematoma, right (14) Small right middle lobe consolidation (15) Rhabdomyolysis (16) Compartment syndrome of right lower extremity Assessment and Plan 1.) Elevated troponin - suspect d/t global hypoperfusion d/t hypotension form sepsis, ef=65%, patient is assymptomatic, trop < 1, on aspirin 325 mg qd, d/t arf lhc/pci would be high risk for deterioration in renal function and potential need for temporary or permanent dialysis 2.) POD 11 - hemodynamically stable 3.) ARF - d/t rhabdomyolysis from compartment syndrome, dialysis per dr Fletcher, urine output @ 1750cc last 24 hours 4.) HTN - started on amlodipine 10 mg qd 5.) RLE pain - slight improvement 6.) Anemia - improved s/p transfusion Problem Qualifiers (1) Drug overdose: Qualified Code: T50.904A - Drug overdose, undetermined intent, initial encounter (2) Acute kidney failure: Qualified Code: N17.9 - Acute renal failure, unspecified acute renal failure type (3) Leukocytosis: Qualified Code: D72.829 - Leukocytosis, unspecified type Luis Eduardo Carter MD Aug 12, 2016 13:48
--- NOTE | 2016-08-12 18:02 | HHI.PR ---
Subjective Remarks Says she feels tired. No cp, sob. No fevers or chills. She is alert and oriented , pleasant. NPO overnight as plan for liver bx. Objective Vitals Vital Signs Date Time Temp Pulse Resp B/P Pulse Ox O2 Delivery O2 Flow Rate FiO2 08/12/16 16:00 98.2 87 17 119/86 97 08/12/16 12:00 97.8 74 16 112/80 96 08/12/16 08:00 98.6 80 16 125/88 95 08/12/16 07:50 82 08/12/16 04:00 98.4 74 20 124/80 97 08/12/16 00:00 99.8 75 20 115/77 97 08/11/16 20:11 83 08/11/16 20:00 100.2 78 21 109/70 96 I/O 08/11/16 08/11/16 08/11/16 08/12/16 08/12/16 08/12/16 06:59 14:59 22:59 06:59 14:59 22:59 Intake Total 240 ml 240 ml 240 ml 120 ml 120 ml Output Total 350 ml 600 ml 200 ml 1100 ml 650 ml 200 ml Balance -110 ml -360 ml 40 ml -980 ml -530 ml -200 ml Intake Oral 240 ml 240 ml 240 ml 120 ml 120 ml IV Total 0 ml 0 ml 0 ml Output Urine Total 300 ml 600 ml 150 ml 1000 ml 650 ml Drainage Total 50 ml 50 ml 100 ml 200 ml Hemodialysis 0 ml # Bowel Movements 0 0 0 0 0 1 Result Diagram: 08/11/16 0436 08/11/16 0436 Imaging Last Impressions Chest X-Ray 08/09/16 0000 Signed Impressions: Service Date/Time: Tuesday, August 09, 2016 19:30 - CONCLUSION: 1. Interval placement of double-lumen central venous line. 2. Hazy opacity at the lung bases with mild blunting of the left costophrenic angle which could indicate a small effusion. Nael Zuñiga MD Catheter Placement X-Ray 07/30/16 0000 Signed Impressions: Service Date/Time: Saturday, July 30, 2016 14:14 - CONCLUSION: Uncomplicated line placement as above. Judson Cee MD Brain MRI 07/29/16 0000 Signed Impressions: Service Date/Time: July 13:34 - CONCLUSION: 1. Abnormal examination of the brain demonstrating areas of T2 signal and abnormal diffusion signal involving the globus pallidus bilaterally and the mesial temporal lobes bilaterally. Primary considerations would include carbon monoxide poisoning versus other partial anoxic brain injury. Please see above discussion. Aamir Narayanan MD Abdomen Ultrasound 07/26/16 0000 Signed Impressions: Service Date/Time: Tuesday, July 26, 2016 10:21 - CONCLUSION: 1. Small amount of free fluid adjacent to the lower poles of both kidneys. 2. Obscuration of the head of the pancreas, distal IVC and aorta due to overlying bowel gas. 3. Otherwise negative. Judson Cee MD Lower Extremity CT 07/25/16 0000 Signed Impressions: Service Date/Time: Monday, July 25, 2016 18:54 - CONCLUSION: Extensive nonspecific myositis of the right thigh, also involves gluteus medius and minimus proximally and at least medial gastrocnemius below the knee. Infectious/inflammatory and ischemic etiologies would be in the differential. No gas bubbles are seen to substantiate necrotizing fasciitis. No organized/drainable abscess. Glenroy Sheffield MD Hip and Pelvis X-Ray 07/25/16 0000 Signed Impressions: Service Date/Time: Monday, July 25, 2016 16:52 - CONCLUSION: Intact pelvis and right hip. Nonspecific surrounding soft tissue swelling Glenroy Sheffield MD Head CT 07/25/16 0000 Signed Impressions: Service Date/Time: Monday, July 25, 2016 14:38 - CONCLUSION: Negative noncontrast head CT. Glenroy Sheffield MD Chest CT 07/25/16 0000 Signed Impressions: Service Date/Time: Monday, July 25, 2016 16:37 - CONCLUSION: Focal dense consolidation right middle lobe, nonspecific but most likely infectious or inflammatory. Also a 3 mm right basilar pulmonary nodule Followup noncontrast chest CT in a few months recommended to confirm resolution/stability. Glenroy Sheffield MD Abdomen/Pelvis CT 07/25/16 0000 Signed Impressions: Service Date/Time: Monday, July 25, 2016 16:37 - CONCLUSION: 1. Fatty liver and 21 mm right ovarian cyst. Otherwise, no acute abnormality seen within the abdomen or pelvis. 2. Swollen, heterogeneous right hip musculature, primarily gluteus medius and minimus, rectus femoris and vastus lateralis and the adductor muscles. This is nonspecific but suggests a subacute hematoma of these structures. Nothing organized/measurable. 3. Chronic L5 pars defects with grade 2 L5/S1 spondylolisthesis. Glenroy Sheffield MD Objective Remarks GENERAL: 30-year-old female. Not in distress. Central line right internal jugular. CARDIOVASCULAR: RRR Faint systolic 2/6 murmur RESPIRATORY: clear to auscultation w no wheezing this morning. GASTROINTESTINAL: Abdomen soft, non-tender, nondistended. Hypoactive bowel sounds. Abrasions. MUSCULOSKELETAL: Right thigh currently with wound VAC lateral aspect. Right hip tender with restricted mobility. Positive peripheral edema right greater than left lower extremity, 2+. NEUROLOGICAL: Awake and alert to person, place and year. Motor grossly within normal limits. Procedures Status post right leg washout, senna graft placement and partial wound closure on 08/06. A/P Problem List: (1) Compartment syndrome of right lower extremity ICD Code: T79.A21A Status: Acute (2) Rhabdomyolysis ICD Code: M62.82 Status: Resolved (3) Severe sepsis ICD Code: A41.9 Status: Resolved (4) Altered mental status ICD Code: R41.82 Status: Resolved (5) Drug overdose ICD Code: T50.901A Status: Resolved (6) Elevated troponin ICD Code: R79.89 Status: Resolved (7) Severe metabolic acidosis Status: Resolved (8) Lactic acidosis ICD Code: E87.2 Status: Resolved (9) Transaminitis ICD Code: R74.0 Status: Acute (10) Hypocalcemia ICD Code: E83.51 Status: Acute (11) Hyperkalemia ICD Code: E87.5 Status: Acute (12) ST elevation ICD Code: R94.31 Status: Acute (13) Acute kidney failure ICD Code: N17.9 Status: Acute (14) Leukocytosis ICD Code: D72.829 Status: Resolved (15) Small right middle lobe consolidation Status: Acute (16) Hip hematoma, right ICD Code: S70.01XA Status: Acute Assessment and Plan Altered mental status. Resolved. Polysubstance abuse with drug overdose including cocaine/heroin. History of THC use. EtOH use. Counselled. Right upper extremity numbness. Resolving. -Watch for alcohol and drug withdrawal, Use PRN Ativan for anxiety and oxycodone /morphine as needed for pain. -CT of the head 07/25 revealed no acute intracranial findings. Continue aspirin , thiamine and multivitamins. -MRI brain 07/29 revealed T2 signal abnormality globus pallidus and mesial temporal lobe bilaterally. - EEG 07/30 revealed slowing system with moderate diffuse encephalopathy. No seizure activity. - Psychiatry clear to [place] act 07/29 - neurology evaluated the patient and feels that MRI results are from drug overdose. GI getting ophthalmology consult for eval w slit lamp for Bre- Sylvia rings - 08/05 ophtalmology exam negative for Bre-Sylvia rings. Mild Respiratory insufficiency secondary to pneumonia/metabolic acidosis Small consolidation right middle lobe Right basilar pulmonary nodule 3 mm - follow-up CT chest 3 months recommended Ongoing tobaccoism -now on RA, has cough but nonproductive, continue incentive spirometry, duo nebs. -CT chest 07/25 revealed right middle lobe infiltrate along with 3 mm right basilar pulmonary nodule. -Chest x-ray 07/26 reveals no significant cardio pulmonary findings Elevated troponin Severe lactic acidosis - resolved ST elevation in V1 and V2 -Continue antibiotics,2d echo revealed EF 60-65%. NRWMA. Lactic acid has cleared on Norvasc 10 mg daily for hypertension, 0.1 mg po BID, with as needed hydralazine and Nitropaste, d/c labetalol BP stable. Continue Norvasc, clonidine. PRN hydralazine and nitropaste. GI: Transaminitis Rhabdomyolysis Hyperammonia -Transaminitis most likely secondary to shock/rhabdo -CT of the abdomen and pelvis shows fatty liver/21 mm right ovarian cyst -Negative hepatitis panel - Xifaxan 550 twice a day/lactulose 30 3 times a day for elevated ammonia. - Noted low ceruloplasmin. 9. 24 hr Urine copper 24, for liver biopsy on Tuesday - Plan for liver biopsy. /Renal: Acute kidney failure Acute rhabdomyolysis - on normal saline down to 70cc an hour -07/26 renal ultrasound revealed fluid of at poles of bilateral kidneys otherwise negative - Strict intake output. - Urine electrolytes intrinsic renal process/urine eosinophils negative. - Nephrology following. Still making some urine but noted to be decreased by RN. getting HD - Noted decreased C3 of 19/C4 5, monitor creatinine. [employer]: Right ovarian cyst Beta hCG 1 ID: Severe sepsis Escherichia coli UTI -Source likely secondary to right thigh compartment syndrome -Infectious disease following. Small consolidation in the right middle lobe unlikely to be source of severe sepsis, Levaquin and Zosyn stopped for now. Rule out line infection. Infectious disease following. Previous urine culture grew Escherichia coli. Macrocytic anemia Thrombocytopenia 08/07 Acute post op anemia/ acute blood loss anemia. H/H stable fo far, monitor. -Monitor CBC, CMP, - Transfused total 4 units PRBCs, 2 pack platelets, 2 FFP 2 cryo-since admission - Hb 7.3 today. monitor closely. transfuse if <7.0 - Status post transfusion, monitor.. So far H/H stable. Right medial/lateral thigh compartment syndrome L5/S1 spondylolisthesis Status post day [address] Turner - wound VAC placement Severe Protein caloorie malnutrition: Muscle waist. Alb 1.5 . Add ensure to diet. Also on albumin with HD PROPH: -Left lower extremity SCDs. Hold subcutaneous heparin given drop in hemoglobin. plan for liver biopsy 08/13. Keep NPO overnight. Problem Qualifiers (1) Drug overdose: Qualified Code: T50.904A - Drug overdose, undetermined intent, initial encounter (2) Acute kidney failure: Qualified Code: N17.9 - Acute renal failure, unspecified acute renal failure type (3) Leukocytosis: Qualified Code: D72.829 - Leukocytosis, unspecified type Lashanda Lovelace MD Aug 12, 2016 18:02
--- NOTE | 2016-08-12 18:22 | PD.CAR.PN ---
CVT Progress Note Subjective/Hospital Course: Patient with clinical findings of medial and lateral thigh compartment syndrome For OR now Thanks Delaney 07/26/16 Patient underwent yesterday and medial and lateral fasciotomy of the thigh debridement Today she underwent washout the both, closure of the medial fasciotomy skin and wound VAC placement on lateral fasciotomy The lateral fasciotomy will need wound VAC for but 2 weeks and then this can be covered with the partial-thickness skin graft by plastic surgery 07/27/16 Status post the thigh compartment syndrome with medial and lateral fasciotomy of the right leg Yesterday patient went for washout closure and drainage of the medial fasciotomy site while the lateral fasciotomy from hip to the knee remains open Wound VAC in place Hemoglobin now stable and there is no other source of bleeding Patient was in active DIC and fibrinolysis for the first 48 hours and this is now abating Agree with blood and blood products administration Platelets remain stable and unless these drop on the 30,000 would probably not transfuse Patient can be out of bed and should be bearing weight on this leg as much as possible 07/28/16 CHAZ drainage from the medial closure of the thighs decreased but I will leave it in till the swelling decreases and the third space abates for otherwise patient will develop a seroma in this area Lateral incision now covered with a wound VAC is draining minimally Hemoglobin remains stable Plan Starting tomorrow will have wound care assist with changing wound VAC at the bedside and I will consult plastic surgery for grafting of the wound in the near future 07/29/16 Medial compartment is closed and drainage is minimal so we will DC CHAZ Lateral thigh compartment is open clean and we will start wound VAC changes today Eventually patient will go to the OR for another washout and perhaps little more closure of this area but for the most part she will need a skin grafting of this area 07/30/2016 Medial incision is clean and dry Lateral incision wound VAC has been changed yesterday and he looks nice and clean and granulating nicely Patient will need several wound VAC exchange to before graft can be placed in this area Continue care Patient can transfer to the floor from my point 08/05/16 The patient will undergo tomorrow placement of acellular matrix xenograft in the operating room Wound VAC will then remain on it for about 10 days and then after that patient can be grafted This procedure should take about 30 minutes and then patient will be able to go to rehabilitation or even [place] for about 10 days and then return to us for grafting 08/07/16 Patient underwent yesterday washout of her fasciotomy site of the right thigh with placement of a acellular xenograft to improve granulation and the allow for eventual partial-thickness skin graft placement The drainage from the wound VAC at this point will be copious considering the inflammatory reaction that the xenograft induces so this is expected. In addition patient dropped hemoglobin and will be given 2 units of blood The wound VAC will stay on for about 9 days at this point so patient can either stay in our hospital or be transferred possibly to [place] till the time comes to remove the wound VAC for it will have to be done in the operating room At that time area will be ready for grafting or he may need another 10 days of xenograft is a granulation is not sufficient I will consult Dr. Juares to see the patient for skin grafting when the time comes 08/10/16 Wound VAC is in position and drainage has now significantly decreased Patient is excellent distal pulses and leg is warm Patient could move to [place] from my point till the time comes to remove the wound VAC is another week Nothing to add to care let this time 08/12/16 Patient doing well at this time Drainage from the wound VAC is minimal Patient will be taken back to the operating room on Tuesday for evaluation and washout with possible grafting Patient may need another 9 or 10 days of the acellular matrix depending on the granulation tissue present next week or may be graftable next week We'll consult Dr. Juares for the grafting Objective: Vital Signs Date Time Temp Pulse Resp B/P Pulse Ox O2 Delivery O2 Flow Rate FiO2 08/12/16 16:00 98.2 87 17 119/86 97 08/12/16 12:00 97.8 74 16 112/80 96 08/12/16 08:00 98.6 80 16 125/88 95 08/12/16 07:50 82 08/12/16 04:00 98.4 74 20 124/80 97 08/12/16 00:00 99.8 75 20 115/77 97 08/11/16 20:11 83 08/11/16 20:00 100.2 78 21 109/70 96 Result Diagram: 08/11/16 0436 08/11/16 043 (1) Drug overdose (2) Hypocalcemia (3) SIRS (systemic inflammatory response syndrome) (4) Renal failure (5) Hyperkalemia (6) Lactic acidosis (7) Altered mental status (8) Severe sepsis (9) Elevated troponin (10) Severe metabolic acidosis (11) Acute kidney failure (12) Leukocytosis (13) Hip hematoma, right (14) Small right middle lobe consolidation (15) Rhabdomyolysis (16) Compartment syndrome of right lower extremity Problem Qualifiers (1) Drug overdose: Qualified Code: T50.904A - Drug overdose, undetermined intent, initial encounter (2) Acute kidney failure: Qualified Code: N17.9 - Acute renal failure, unspecified acute renal failure type (3) Leukocytosis: Qualified Code: D72.829 - Leukocytosis, unspecified type Saw Turner MD Aug 12, 2016 18:22
[2016-08-13] VITALS (13 sets, daily range): BP systolic 106–127; BP diastolic 65–99; PULSE 72–102; RESP 16–20; TEMP 97.5–99.4; O2SAT 96–100
[2016-08-13] MEDS: CHLORHEXIDINE GLUCONATE 2 % 1 PACK (2 CLOTHS) TOP SCH (04:00)
[2016-08-13] MEDS: LACTATED RINGER'S 1000 ML IV SCH (05:00)
[2016-08-13 05:33] LABS: BICARBONATE 28.1 MEQ/L (21.0-32.0); POTASSIUM 3.6 MEQ/L (3.5-5.1)
[2016-08-13] MEDS: MULTIVITAMIN TAB PO SCH (09:00)
[2016-08-13] MEDS: RIFAXIMIN 550 MG TAB PO SCH ×2 (09:00→20:26)
[2016-08-13] MEDS: FOLIC ACID 1 MG TAB PO SCH (09:00)
[2016-08-13] MEDS: THIAMINE HCL 100 MG TAB PO SCH (09:00)
[2016-08-13] MEDS: LACTULOSE SYRUP 20 GM/30 ML CUP PO SCH ×2 (09:00→20:26)
[2016-08-13] MEDS: FAMOTIDINE 20 MG TAB PO SCH ×2 (09:57→20:26)
[2016-08-13] MEDS: SODIUM CHLORIDE 0.9% FLUSH 5 ML FLUSH IV FLUSH SCH ×2 (09:57→20:26)
[2016-08-13] MEDS: cloNIDine HCL 0.1 MG TAB PO SCH ×2 (09:58→20:26)
--- NOTE | 2016-08-13 11:48 | HHI.NPPN ---
Subjective History of Present Illness 30 year old female with drug OD, Rt thigh compartment syndrome s/p Fasciotomy, Rhabdomyolysis, ARF Additional Remarks Patient is alert, has pain in the Rt. leg. Review of Systems General Constitutional: Fatigue Musculoskeletal MS: Pain/Stiffness Objective Data Data 08/12/16 08/13/16 18:59 06:59 Intake Total 120 ml 480 ml Output Total 850 ml 1450 ml Balance -730 ml -970 ml Intake Oral 120 ml 480 ml IV Total 0 ml Output Urine Total 650 ml 1400 ml Drainage Total 200 ml 50 ml # Bowel Movements 1 0 # Sanitary Pads 1 Pads Vital Signs Date Time Temp Pulse Resp B/P Pulse Ox O2 Delivery O2 Flow Rate FiO2 08/13/16 08:00 99.4 79 16 125/78 96 08/13/16 04:00 98.4 84 18 118/72 96 08/13/16 00:00 98.7 81 16 122/91 98 08/12/16 20:00 99.4 80 20 115/78 95 08/12/16 16:00 98.2 87 17 119/86 97 08/12/16 12:00 97.8 74 16 112/80 96 -: 08/11/16 0436 08/13/16 0336 Physical Exam General Appearance: No Acute Distress, Comfortable Neck Neck Exam: Neck Supple Pulmonary Resp Exam: Clear Bilaterally, Breath Sounds Equal Cardiology CV Exam: Regular, Normal Sinus Rhythm Gastrointestinal/Abdomen GI Exam: Soft, Non-Tender, Bowel Sounds Present Extremeties Extremities Exam: Trace Edema Extremeties Remarks Rt thigh vacuum dressing Neurologic Neuro Exam: Alert, Awake Assessment/Plan Problem List: (1) Acute kidney failure Plan: This is likely due to rhabdomyolysis and acute tubular necrosis creatinine declined HD today then may observe for recovery over weekend (2) Compartment syndrome of right lower extremity Plan: Status post surgery (3) UTI (urinary tract infection) Plan: treated (4) Severe sepsis Plan: Status post fasciotomy right leg Problem Qualifiers (1) Acute kidney failure: Qualified Code: N17.9 - Acute renal failure, unspecified acute renal failure type Vinny Fletcher MD Aug 13, 2016 11:48
[2016-08-13] MEDS ORDERED: LIDOCAINE 1%/EPINEPHrine 1:100,000 SOLN 20 ML VIAL ONE (12:17)
[2016-08-13] MEDS ORDERED: fentaNYL CITRATE 250 MCG/5 ML AMP ONE (12:21)
[2016-08-13] MEDS ORDERED: MIDAZOLAM HCL 5 MG/5 ML VIAL ONE (12:21)
--- NOTE | 2016-08-13 13:43 | HHI.PR ---
Subjective Remarks Seen later after liver biopsy, uneventful Patient says she has pain at the site of biopsy. No fevers or chills. Feels tired. No n/v/d/c. She is also reporting nonproductive cough. Encouraged IS. Objective Vitals Vital Signs Date Time Temp Pulse Resp B/P Pulse Ox O2 Delivery O2 Flow Rate FiO2 08/13/16 12:00 97.9 72 16 106/76 97 08/13/16 08:00 99.4 79 16 125/78 96 08/13/16 04:00 98.4 84 18 118/72 96 08/13/16 00:00 98.7 81 16 122/91 98 08/12/16 20:00 99.4 80 20 115/78 95 08/12/16 16:00 98.2 87 17 119/86 97 I/O 08/12/16 08/12/16 08/12/16 08/13/16 08/13/16 08/13/16 07:00 15:00 23:00 07:00 15:00 23:00 Intake Total 120 ml 120 ml 480 ml 0 ml Output Total 1100 ml 650 ml 950 ml 700 ml 100 ml Balance -980 ml -530 ml -470 ml -700 ml -100 ml Intake Oral 120 ml 120 ml 480 ml 0 ml IV Total 0 ml 0 ml Output Urine Total 1000 ml 650 ml 700 ml 700 ml Drainage Total 100 ml 250 ml 100 ml # Bowel Movements 0 0 1 0 # Sanitary Pads 1 Pads Result Diagram: 08/11/16 0436 08/13/16 0336 Imaging Last Impressions Liver Biopsy CT 08/13/16 0000 Signed Impressions: Service Date/Time: Saturday, August 13, 2016 12:42 - CONCLUSION: Uncomplicated CT guided biopsy. Raymundo Agarwal MD Chest X-Ray 08/09/16 0000 Signed Impressions: Service Date/Time: Tuesday, August 09, 2016 19:30 - CONCLUSION: 1. Interval placement of double-lumen central venous line. 2. Hazy opacity at the lung bases with mild blunting of the left costophrenic angle which could indicate a small effusion. Nael Zuñiga MD Catheter Placement X-Ray 07/30/16 0000 Signed Impressions: Service Date/Time: Saturday, July 30, 2016 14:14 - CONCLUSION: Uncomplicated line placement as above. Judson Cee MD Brain MRI 07/29/16 0000 Signed Impressions: Service Date/Time: July 13:34 - CONCLUSION: 1. Abnormal examination of the brain demonstrating areas of T2 signal and abnormal diffusion signal involving the globus pallidus bilaterally and the mesial temporal lobes bilaterally. Primary considerations would include carbon monoxide poisoning versus other partial anoxic brain injury. Please see above discussion. Aamir Narayanan MD Abdomen Ultrasound 07/26/16 0000 Signed Impressions: Service Date/Time: Tuesday, July 26, 2016 10:21 - CONCLUSION: 1. Small amount of free fluid adjacent to the lower poles of both kidneys. 2. Obscuration of the head of the pancreas, distal IVC and aorta due to overlying bowel gas. 3. Otherwise negative. Judson Cee MD Lower Extremity CT 07/25/16 0000 Signed Impressions: Service Date/Time: Monday, July 25, 2016 18:54 - CONCLUSION: Extensive nonspecific myositis of the right thigh, also involves gluteus medius and minimus proximally and at least medial gastrocnemius below the knee. Infectious/inflammatory and ischemic etiologies would be in the differential. No gas bubbles are seen to substantiate necrotizing fasciitis. No organized/drainable abscess. Glenroy Sheffield MD Hip and Pelvis X-Ray 07/25/16 0000 Signed Impressions: Service Date/Time: Monday, July 25, 2016 16:52 - CONCLUSION: Intact pelvis and right hip. Nonspecific surrounding soft tissue swelling Glenory Sheffield MD Head CT 07/25/16 0000 Signed Impressions: Service Date/Time: Monday, July 25, 2016 14:38 - CONCLUSION: Negative noncontrast head CT. Glenroy Sheffield MD Chest CT 07/25/16 0000 Signed Impressions: Service Date/Time: Monday, July 25, 2016 16:37 - CONCLUSION: Focal dense consolidation right middle lobe, nonspecific but most likely infectious or inflammatory. Also a 3 mm right basilar pulmonary nodule Followup noncontrast chest CT in a few months recommended to confirm resolution/stability. Glenroy Sheffield MD Abdomen/Pelvis CT 07/25/16 0000 Signed Impressions: Service Date/Time: Monday, July 25, 2016 16:37 - CONCLUSION: 1. Fatty liver and 21 mm right ovarian cyst. Otherwise, no acute abnormality seen within the abdomen or pelvis. 2. Swollen, heterogeneous right hip musculature, primarily gluteus medius and minimus, rectus femoris and vastus lateralis and the adductor muscles. This is nonspecific but suggests a subacute hematoma of these structures. Nothing organized/measurable. 3. Chronic L5 pars defects with grade 2 L5/S1 spondylolisthesis. Glenroy Sheffield MD Objective Remarks GENERAL: 30-year-old female. Not in distress. Central line right internal jugular. CARDIOVASCULAR: RRR Faint systolic 2/6 murmur RESPIRATORY: clear to auscultation w no wheezing this morning. GASTROINTESTINAL: Abdomen soft, non-tender, nondistended. Hypoactive bowel sounds. Abrasions. MUSCULOSKELETAL: Right thigh currently with wound VAC lateral aspect. Right hip tender with restricted mobility. Positive peripheral edema right greater than left lower extremity, 2+. NEUROLOGICAL: Awake and alert to person, place and year. Motor grossly within normal limits. Procedures Status post right leg washout, senna graft placement and partial wound closure on 08/06. A/P Problem List: (1) Compartment syndrome of right lower extremity ICD Code: T79.A21A Status: Acute (2) Rhabdomyolysis ICD Code: M62.82 Status: Resolved (3) Severe sepsis ICD Code: A41.9 Status: Resolved (4) Altered mental status ICD Code: R41.82 Status: Resolved (5) Drug overdose ICD Code: T50.901A Status: Resolved (6) Elevated troponin ICD Code: R79.89 Status: Resolved (7) Severe metabolic acidosis Status: Resolved (8) Lactic acidosis ICD Code: E87.2 Status: Resolved (9) Transaminitis ICD Code: R74.0 Status: Acute (10) Hypocalcemia ICD Code: E83.51 Status: Acute (11) Hyperkalemia ICD Code: E87.5 Status: Acute (12) ST elevation ICD Code: R94.31 Status: Acute (13) Acute kidney failure ICD Code: N17.9 Status: Acute (14) Leukocytosis ICD Code: D72.829 Status: Resolved (15) Small right middle lobe consolidation Status: Acute (16) Hip hematoma, right ICD Code: S70.01XA Status: Acute Assessment and Plan Altered mental status. Resolved. Polysubstance abuse with drug overdose including cocaine/heroin. History of THC use. EtOH use. Counselled. Right upper extremity numbness. Resolving. S/P Liver biopsy by IR 08/13/16 -Watch for alcohol and drug withdrawal, Use PRN Ativan for anxiety and oxycodone /morphine as needed for pain. -CT of the head 07/25 revealed no acute intracranial findings. Continue aspirin , thiamine and multivitamins. -MRI brain 07/29 revealed T2 signal abnormality globus pallidus and mesial temporal lobe bilaterally. - EEG 07/30 revealed slowing system with moderate diffuse encephalopathy. No seizure activity. - Psychiatry clear to [place] act 07/29 - neurology evaluated the patient and feels that MRI results are from drug overdose. GI getting ophthalmology consult for eval w slit lamp for Bre- Sylvia rings - 08/05 ophtalmology exam negative for Bre-Sylvia rings. Mild Respiratory insufficiency secondary to pneumonia/metabolic acidosis Small consolidation right middle lobe Right basilar pulmonary nodule 3 mm - follow-up CT chest 3 months recommended Ongoing tobaccoism -now on RA, has cough but nonproductive, continue incentive spirometry, duo nebs. -CT chest 07/25 revealed right middle lobe infiltrate along with 3 mm right basilar pulmonary nodule. -Chest x-ray 07/26 reveals no significant cardio pulmonary findings Elevated troponin Severe lactic acidosis - resolved ST elevation in V1 and V2 -Continue antibiotics,2d echo revealed EF 60-65%. NRWMA. Lactic acid has cleared on Norvasc 10 mg daily for hypertension, 0.1 mg po BID, with as needed hydralazine and Nitropaste, d/c labetalol BP stable. Continue Norvasc, clonidine. PRN hydralazine and nitropaste. GI: Transaminitis Rhabdomyolysis Hyperammonia -Transaminitis most likely secondary to shock/rhabdo -CT of the abdomen and pelvis shows fatty liver/21 mm right ovarian cyst -Negative hepatitis panel - Xifaxan 550 twice a day/lactulose 30 3 times a day for elevated ammonia. - Noted low ceruloplasmin. 9. 24 hr Urine copper 24, for liver biopsy on Tuesday - S/P liver biopsy 08/13/16. /Renal: Acute kidney failure Acute rhabdomyolysis - on normal saline down to 70cc an hour -07/26 renal ultrasound revealed fluid of at poles of bilateral kidneys otherwise negative - Strict intake output. - Urine electrolytes intrinsic renal process/urine eosinophils negative. - Nephrology following. Still making some urine but noted to be decreased by RN. getting HD - Noted decreased C3 of 19/C4 5, monitor creatinine. [employer]: Right ovarian cyst Beta hCG 1 ID: Severe sepsis Escherichia coli UTI -Source likely secondary to right thigh compartment syndrome -Infectious disease following. Small consolidation in the right middle lobe unlikely to be source of severe sepsis, Levaquin and Zosyn stopped for now. Rule out line infection. Infectious disease following. Previous urine culture grew Escherichia coli. Macrocytic anemia Thrombocytopenia 12/10 Acute post op anemia/ acute blood loss anemia. H/H stable fo far, monitor. -Monitor CBC, CMP, - Transfused total 4 units PRBCs, 2 pack platelets, 2 FFP 2 cryo-since admission - Hb 7.3 today. monitor closely. transfuse if <7.0 - Status post transfusion, monitor.. So far H/H stable. Right medial/lateral thigh compartment syndrome L5/S1 spondylolisthesis Status post day [address] Turner - wound VAC placement Severe Protein caloorie malnutrition: Muscle waist. Alb 1.5 . Add ensure to diet. Also on albumin with HD PROPH: -Left lower extremity SCDs. Hold subcutaneous heparin given drop in hemoglobin. Discussed with the patient, nurse, GI service, IR Problem Qualifiers (1) Drug overdose: Qualified Code: T50.904A - Drug overdose, undetermined intent, initial encounter (2) Acute kidney failure: Qualified Code: N17.9 - Acute renal failure, unspecified acute renal failure type (3) Leukocytosis: Qualified Code: D72.829 - Leukocytosis, unspecified type Lashanda Lovelace MD Aug 13, 2016 13:43
--- NOTE | 2016-08-13 13:44 | RADRPT ---
EXAM DATE/TIME: 08/13/2016 12:42 [facility] COMPARISON: No previous studies available for comparison. INDICATIONS : Liver biospy for function. SEDATION TIME: 30 minutes BIOPSY SITE: Right liver MEDICATION(S): 1.) 2 midazolam (Versed) IV 2.) 150 fentanyl (Sublimaze) IV DEVICE(S): 1.) 18 gauge BioPince needle MEDICAL HISTORY : None. SURGICAL HISTORY : None. ENCOUNTER: Initial ACUITY: 1 day PAIN SCORE: 0/10 LOCATION: liver A total of one core specimen(s) were obtained and sent to the laboratory for pathologic evaluation. PROCEDURE: 1. CT guided liver biopsy. 2. Conscious sedation with continuous EKG and oximetry monitoring. 3. EKG and oximetry remained stable throughout the procedure. Prior to the procedure informed consent was obtained. Any appropriate prior imaging studies were rev iewed. The site was prepped in a sterile fashion. Full sterile technique was used, including cap, mask, vishal rile gloves and gown and a large sterile sheet. Hand hygiene and 2% chlorhexidine and/or betadine/al cohol prep was utilized per protocol for cutaneous antisepsis. The skin and subcutaneous tissues wer e infiltrated with local anesthetic solution. With CT guidance the previously identified target was localized. Biopsy was performed using the presc ribed needle as above. Adequate hemostasis was obtained with compression at the puncture site. Follow-up CT scan reveals no hemorrhage. The patient tolerated the procedure well and there were no complications. The patient was returned to the Radiology Outpatient Unit in stable condition. CONCLUSION: Uncomplicated CT guided biopsy. Raymundo Agarwal MD on August 13, 2016 at 13:43 Board Certified Radiologist. This report was verified electronically.
--- NOTE | 2016-08-13 15:04 | PD.CARD.PN ---
Subjective Subjective Remarks s/p liver biopsy in recovery in nad Objective Vital Signs / I&O Vital Signs Date Time Temp Pulse Resp B/P Pulse Ox O2 Delivery O2 Flow Rate FiO2 08/13/16 12:00 97.9 72 16 106/76 97 08/13/16 08:00 99.4 79 16 125/78 96 08/13/16 04:00 98.4 84 18 118/72 96 08/13/16 00:00 98.7 81 16 122/91 98 08/12/16 20:00 99.4 80 20 115/78 95 08/12/16 16:00 98.2 87 17 119/86 97 I/O 08/12/16 08/12/16 08/12/16 08/13/16 08/13/16 08/13/16 06:59 14:59 22:59 06:59 14:59 22:59 Intake Total 120 ml 120 ml 480 ml 0 ml Output Total 1100 ml 650 ml 950 ml 700 ml 100 ml Balance -980 ml -530 ml -470 ml -700 ml -100 ml Intake Oral 120 ml 120 ml 480 ml 0 ml IV Total 0 ml 0 ml Output Urine Total 1000 ml 650 ml 700 ml 700 ml Drainage Total 100 ml 250 ml 100 ml # Bowel Movements 0 0 1 0 # Sanitary Pads 1 Pads Physical Exam GENERAL: SKIN: Warm and dry. HEAD: Normocephalic. EYES: No scleral icterus. No injection or drainage. NECK: Supple, trachea midline. No JVD or lymphadenopathy. CARDIOVASCULAR: Regular rate and rhythm without murmurs, gallops, or rubs. RESPIRATORY: Breath sounds equal bilaterally. No accessory muscle use. GASTROINTESTINAL: Abdomen soft, non-tender, nondistended. MUSCULOSKELETAL: No cyanosis, or edema. BACK: Nontender without obvious deformity. No CVA tenderness. GENERAL: SKIN: Warm and dry. HEAD: Normocephalic. EYES: No scleral icterus. No injection or drainage. NECK: Supple, trachea midline. No JVD or lymphadenopathy. CARDIOVASCULAR: Regular rate and rhythm without murmurs, gallops, or rubs. RESPIRATORY: Breath sounds equal bilaterally. No accessory muscle use. GASTROINTESTINAL: Abdomen soft, non-tender, nondistended. MUSCULOSKELETAL: No cyanosis, or edema. BACK: Nontender without obvious deformity. No CVA tenderness. Laboratory Laboratory Tests Test 12/16/16 03:36 Sodium Level 142 MEQ/L Potassium Level 3.6 MEQ/L Chloride Level 105 MEQ/L Carbon Dioxide Level 28.1 MEQ/L Anion Gap 9 MEQ/L Blood Urea Nitrogen 19 MG/DL Creatinine 4.32 MG/DL Estimat Glomerular Filtration 12 ML/MIN Rate Random Glucose 94 MG/DL Calcium Level 7.9 MG/DL Assessment and Plan Problem List: (1) Drug overdose (2) Hypocalcemia (3) SIRS (systemic inflammatory response syndrome) (4) Renal failure (5) Hyperkalemia (6) Lactic acidosis (7) Altered mental status (8) Severe sepsis (9) Elevated troponin (10) Severe metabolic acidosis (11) Acute kidney failure (12) Leukocytosis (13) Hip hematoma, right (14) Small right middle lobe consolidation (15) Rhabdomyolysis (16) Compartment syndrome of right lower extremity Assessment and Plan 1.) Elevated troponin - suspect d/t global hypoperfusion d/t hypotension form sepsis, ef=65%, patient is assymptomatic, trop < 1, on aspirin 325 mg qd, d/t arf lhc/pci would be high risk for deterioration in renal function and potential need for temporary or permanent dialysis 2.) POD 12 - hemodynamically stable 3.) ARF - d/t rhabdomyolysis from compartment syndrome, dialysis per dr Fletcher, urine output @ 2l last 24 hours 4.) HTN - started on amlodipine 10 mg qd 5.) RLE pain - slight improvement 6.) Anemia - improved s/p transfusion Problem Qualifiers (1) Drug overdose: Qualified Code: T50.904A - Drug overdose, undetermined intent, initial encounter (2) Acute kidney failure: Qualified Code: N17.9 - Acute renal failure, unspecified acute renal failure type (3) Leukocytosis: Qualified Code: D72.829 - Leukocytosis, unspecified type Luis Eduardo Carter MD Aug 13, 2016 15:03
[2016-08-13] MEDS: MORPHINE SULFATE 4 MG/ML INJ IV PRN ×2 (16:32→21:31)
[2016-08-13] MEDS ORDERED: BENZONATATE 100 MG CAP PO PRN (19:30)
[2016-08-14] VITALS (8 sets, daily range): BP systolic 104–130; BP diastolic 58–92; PULSE 83–108; RESP 14–20; TEMP 96.7–99; O2SAT 94–98
[2016-08-14] MEDS: LACTATED RINGER'S 1000 ML IV SCH ×2 (03:05→21:05)
[2016-08-14] MEDS: CHLORHEXIDINE GLUCONATE 2 % 1 PACK (2 CLOTHS) TOP SCH ×2 (03:05→21:05)
[2016-08-14] MEDS: LACTULOSE SYRUP 20 GM/30 ML CUP PO SCH ×2 (08:45→21:03)
[2016-08-14] MEDS: RIFAXIMIN 550 MG TAB PO SCH ×2 (08:45→21:03)
[2016-08-14] MEDS: THIAMINE HCL 100 MG TAB PO SCH (08:45)
[2016-08-14] MEDS: ASPIRIN EC 325 MG TABEC PO SCH (08:45)
[2016-08-14] MEDS: FOLIC ACID 1 MG TAB PO SCH (08:46)
[2016-08-14] MEDS: SODIUM CHLORIDE 0.9% FLUSH 5 ML FLUSH IV FLUSH SCH ×2 (08:46→21:02)
[2016-08-14] MEDS: cloNIDine HCL 0.1 MG TAB PO SCH ×2 (08:46→21:00)
[2016-08-14] MEDS: MULTIVITAMIN TAB PO SCH (08:46)
[2016-08-14] MEDS: FAMOTIDINE 20 MG TAB PO SCH ×2 (08:46→21:03)
--- NOTE | 2016-08-14 11:43 | PD.CARD.PN ---
Subjective Subjective Remarks ALERT IN NAD Objective Vital Signs / I&O Vital Signs Date Time Temp Pulse Resp B/P Pulse Ox O2 Delivery O2 Flow Rate FiO2 08/14/16 09:46 17 08/14/16 08:43 87 08/14/16 08:00 98.0 87 15 104/72 96 08/14/16 04:00 98.0 92 20 124/82 94 08/14/16 00:00 97.8 108 20 130/92 96 08/13/16 22:00 97 08/13/16 20:00 98.7 102 20 127/99 100 08/13/16 16:00 97.5 83 18 119/79 100 08/13/16 15:30 82 16 116/78 99 08/13/16 15:00 80 16 116/74 96 08/13/16 14:30 80 16 117/71 96 08/13/16 14:00 80 16 109/65 96 08/13/16 13:30 08/13/16 13:30 85 16 113/70 96 08/13/16 13:15 98.9 83 16 110/73 96 08/13/16 12:00 97.9 72 16 106/76 97 I/O 08/13/16 08/13/16 08/13/16 08/14/16 08/14/16 08/14/16 06:59 14:59 22:59 06:59 14:59 22:59 Intake Total 0 ml 960 ml 0 ml Output Total 700 ml 950 ml 300 ml 150 ml Balance -700 ml 10 ml -300 ml -150 ml Intake Oral 0 ml 960 ml 0 ml Output Urine Total 700 ml 850 ml 300 ml Drainage Total 100 ml 150 ml # Bowel Movements 0 0 0 # Sanitary Pads 1 Pads 1 Pads Physical Exam GENERAL: SKIN: Warm and dry. HEAD: Normocephalic. EYES: No scleral icterus. No injection or drainage. NECK: Supple, trachea midline. No JVD or lymphadenopathy. CARDIOVASCULAR: Regular rate and rhythm without murmurs, gallops, or rubs. RESPIRATORY: Breath sounds equal bilaterally. No accessory muscle use. GASTROINTESTINAL: Abdomen soft, non-tender, nondistended. MUSCULOSKELETAL: No cyanosis, or edema. BACK: Nontender without obvious deformity. No CVA tenderness. GENERAL: SKIN: Warm and dry. HEAD: Normocephalic. EYES: No scleral icterus. No injection or drainage. NECK: Supple, trachea midline. No JVD or lymphadenopathy. CARDIOVASCULAR: Regular rate and rhythm without murmurs, gallops, or rubs. RESPIRATORY: Breath sounds equal bilaterally. No accessory muscle use. GASTROINTESTINAL: Abdomen soft, non-tender, nondistended. MUSCULOSKELETAL: No cyanosis, or edema. BACK: Nontender without obvious deformity. No CVA tenderness. Assessment and Plan Problem List: (1) Drug overdose (2) Hypocalcemia (3) SIRS (systemic inflammatory response syndrome) (4) Renal failure (5) Hyperkalemia (6) Lactic acidosis (7) Altered mental status (8) Severe sepsis (9) Elevated troponin (10) Severe metabolic acidosis (11) Acute kidney failure (12) Leukocytosis (13) Hip hematoma, right (14) Small right middle lobe consolidation (15) Rhabdomyolysis (16) Compartment syndrome of right lower extremity Assessment and Plan 1.) Elevated troponin - suspect d/t global hypoperfusion d/t hypotension form sepsis, ef=65%, patient is assymptomatic, trop < 1, on aspirin 325 mg qd, d/t arf lhc/pci would be high risk for deterioration in renal function and potential need for temporary or permanent dialysis 2.) POD 13 - hemodynamically stable 3.) ARF - d/t rhabdomyolysis from compartment syndrome, dialysis per dr Fletcher, 4.) HTN - started on amlodipine 10 mg qd 5.) RLE pain - slight improvement 6.) Anemia - improved s/p transfusion Problem Qualifiers (1) Drug overdose: Qualified Code: T50.904A - Drug overdose, undetermined intent, initial encounter (2) Acute kidney failure: Qualified Code: N17.9 - Acute renal failure, unspecified acute renal failure type (3) Leukocytosis: Qualified Code: D72.829 - Leukocytosis, unspecified type Luis Eduardo Carter MD Aug 14, 2016 11:43
--- NOTE | 2016-08-14 15:13 | HHI.PR ---
Subjective Remarks Says abdominal pain at the site of biopsy is not much pain full. Pain is controlled by meds. No fever or chills. Feels tired. no n/v/d/c. Eating well. Objective Vitals Vital Signs Date Time Temp Pulse Resp B/P Pulse Ox O2 Delivery O2 Flow Rate FiO2 08/14/16 12:00 98.1 83 14 109/71 96 08/14/16 09:46 17 08/14/16 08:43 87 08/14/16 08:00 98.0 87 15 104/72 96 08/14/16 04:00 98.0 92 20 124/82 94 08/14/16 00:00 97.8 108 20 130/92 96 08/13/16 22:00 97 08/13/16 20:00 98.7 102 20 127/99 100 08/13/16 16:00 97.5 83 18 119/79 100 08/13/16 15:30 82 16 116/78 99 I/O 08/13/16 08/13/16 08/13/16 08/14/16 08/14/16 08/14/16 07:00 15:00 23:00 07:00 15:00 23:00 Intake Total 0 ml 960 ml 0 ml 360 ml Output Total 700 ml 950 ml 300 ml 150 ml 405 ml Balance -700 ml 10 ml -300 ml -150 ml -45 ml Intake Oral 0 ml 960 ml 0 ml 360 ml IV Total 0 ml Output Urine Total 700 ml 850 ml 300 ml 275 ml Drainage Total 100 ml 150 ml 130 ml # Bowel Movements 0 0 0 0 # Sanitary Pads 1 Pads 1 Pads Result Diagram: 08/11/16 0436 08/13/16 0336 Imaging Last Impressions Liver Biopsy CT 08/13/16 0000 Signed Impressions: Service Date/Time: Saturday, August 13, 2016 12:42 - CONCLUSION: Uncomplicated CT guided biopsy. Raymundo Agarwal MD Chest X-Ray 08/09/16 0000 Signed Impressions: Service Date/Time: Tuesday, August 09, 2016 19:30 - CONCLUSION: 1. Interval placement of double-lumen central venous line. 2. Hazy opacity at the lung bases with mild blunting of the left costophrenic angle which could indicate a small effusion. Nael Zuñiga MD Catheter Placement X-Ray 07/30/16 0000 Signed Impressions: Service Date/Time: Saturday, July 30, 2016 14:14 - CONCLUSION: Uncomplicated line placement as above. Judson Cee MD Brain MRI 07/29/16 0000 Signed Impressions: Service Date/Time: July 13:34 - CONCLUSION: 1. Abnormal examination of the brain demonstrating areas of T2 signal and abnormal diffusion signal involving the globus pallidus bilaterally and the mesial temporal lobes bilaterally. Primary considerations would include carbon monoxide poisoning versus other partial anoxic brain injury. Please see above discussion. Aamir Narayanan MD Abdomen Ultrasound 07/26/16 0000 Signed Impressions: Service Date/Time: Tuesday, July 26, 2016 10:21 - CONCLUSION: 1. Small amount of free fluid adjacent to the lower poles of both kidneys. 2. Obscuration of the head of the pancreas, distal IVC and aorta due to overlying bowel gas. 3. Otherwise negative. Judson Cee MD Lower Extremity CT 07/25/16 0000 Signed Impressions: Service Date/Time: Monday, July 25, 2016 18:54 - CONCLUSION: Extensive nonspecific myositis of the right thigh, also involves gluteus medius and minimus proximally and at least medial gastrocnemius below the knee. Infectious/inflammatory and ischemic etiologies would be in the differential. No gas bubbles are seen to substantiate necrotizing fasciitis. No organized/drainable abscess. Glenroy Sheffield MD Hip and Pelvis X-Ray 07/25/16 0000 Signed Impressions: Service Date/Time: Monday, July 25, 2016 16:52 - CONCLUSION: Intact pelvis and right hip. Nonspecific surrounding soft tissue swelling Glenroy Sheffield MD Head CT 07/25/16 0000 Signed Impressions: Service Date/Time: Monday, July 25, 2016 14:38 - CONCLUSION: Negative noncontrast head CT. Glenroy Sheffield MD Chest CT 07/25/16 0000 Signed Impressions: Service Date/Time: Monday, July 25, 2016 16:37 - CONCLUSION: Focal dense consolidation right middle lobe, nonspecific but most likely infectious or inflammatory. Also a 3 mm right basilar pulmonary nodule Followup noncontrast chest CT in a few months recommended to confirm resolution/stability. Glenroy Sheffield MD Abdomen/Pelvis CT 07/25/16 0000 Signed Impressions: Service Date/Time: Monday, July 25, 2016 16:37 - CONCLUSION: 1. Fatty liver and 21 mm right ovarian cyst. Otherwise, no acute abnormality seen within the abdomen or pelvis. 2. Swollen, heterogeneous right hip musculature, primarily gluteus medius and minimus, rectus femoris and vastus lateralis and the adductor muscles. This is nonspecific but suggests a subacute hematoma of these structures. Nothing organized/measurable. 3. Chronic L5 pars defects with grade 2 L5/S1 spondylolisthesis. Glenroy Sheffield MD Objective Remarks GENERAL: 30-year-old female. Not in distress. Central line right internal jugular. CARDIOVASCULAR: RRR Faint systolic 2/6 murmur RESPIRATORY: clear to auscultation w no wheezing this morning. GASTROINTESTINAL: Abdomen soft, non-tender, nondistended. Hypoactive bowel sounds. Abrasions. MUSCULOSKELETAL: Right thigh currently with wound VAC lateral aspect. Right hip tender with restricted mobility. Positive peripheral edema right greater than left lower extremity, 2+. NEUROLOGICAL: Awake and alert to person, place and year. Motor grossly within normal limits. Procedures Status post right leg washout, senna graft placement and partial wound closure on 08/06. A/P Problem List: (1) Compartment syndrome of right lower extremity ICD Code: T79.A21A Status: Acute (2) Rhabdomyolysis ICD Code: M62.82 Status: Resolved (3) Severe sepsis ICD Code: A41.9 Status: Resolved (4) Altered mental status ICD Code: R41.82 Status: Resolved (5) Drug overdose ICD Code: T50.901A Status: Resolved (6) Elevated troponin ICD Code: R79.89 Status: Resolved (7) Severe metabolic acidosis Status: Resolved (8) Lactic acidosis ICD Code: E87.2 Status: Resolved (9) Transaminitis ICD Code: R74.0 Status: Acute (10) Hypocalcemia ICD Code: E83.51 Status: Acute (11) Hyperkalemia ICD Code: E87.5 Status: Acute (12) ST elevation ICD Code: R94.31 Status: Acute (13) Acute kidney failure ICD Code: N17.9 Status: Acute (14) Leukocytosis ICD Code: D72.829 Status: Resolved (15) Small right middle lobe consolidation Status: Acute (16) Hip hematoma, right ICD Code: S70.01XA Status: Acute Assessment and Plan Altered mental status. Resolved. Polysubstance abuse with drug overdose including cocaine/heroin. History of THC use. EtOH use. Counselled. Right upper extremity numbness. Resolving. S/P Liver biopsy by IR 08/13/16 -Watch for alcohol and drug withdrawal, Use PRN Ativan for anxiety and oxycodone /morphine as needed for pain. -CT of the head 07/25 revealed no acute intracranial findings. Continue aspirin , thiamine and multivitamins. -MRI brain 07/29 revealed T2 signal abnormality globus pallidus and mesial temporal lobe bilaterally. - EEG 07/30 revealed slowing system with moderate diffuse encephalopathy. No seizure activity. - Psychiatry clear to [place] act 07/29 - neurology evaluated the patient and feels that MRI results are from drug overdose. GI getting ophthalmology consult for eval w slit lamp for Bre- Sylvia rings - 08/05 ophtalmology exam negative for Bre-Sylvia rings. Mild Respiratory insufficiency secondary to pneumonia/metabolic acidosis Small consolidation right middle lobe Right basilar pulmonary nodule 3 mm - follow-up CT chest 3 months recommended Ongoing tobaccoism -now on RA, has cough but nonproductive, continue incentive spirometry, duo nebs. -CT chest 07/25 revealed right middle lobe infiltrate along with 3 mm right basilar pulmonary nodule. -Chest x-ray 07/26 reveals no significant cardio pulmonary findings Elevated troponin Severe lactic acidosis - resolved ST elevation in V1 and V2 -Continue antibiotics,2d echo revealed EF 60-65%. NRWMA. Lactic acid has cleared on Norvasc 10 mg daily for hypertension, 0.1 mg po BID, with as needed hydralazine and Nitropaste, d/c labetalol BP stable. Continue Norvasc, clonidine. PRN hydralazine and nitropaste. GI: Transaminitis Rhabdomyolysis Hyperammonia -Transaminitis most likely secondary to shock/rhabdo -CT of the abdomen and pelvis shows fatty liver/21 mm right ovarian cyst -Negative hepatitis panel - Xifaxan 550 twice a day/lactulose 30 3 times a day for elevated ammonia. - Noted low ceruloplasmin. 9. 24 hr Urine copper 24, for liver biopsy on Tuesday - S/P liver biopsy 08/13/16. /Renal: Acute kidney failure Acute rhabdomyolysis - on normal saline down to 70cc an hour -07/26 renal ultrasound revealed fluid of at poles of bilateral kidneys otherwise negative - Strict intake output. - Urine electrolytes intrinsic renal process/urine eosinophils negative. - Nephrology following. Still making some urine but noted to be decreased by RN. getting HD - Noted decreased C3 of 19/C4 5, monitor creatinine. [employer]: Right ovarian cyst Beta hCG 1 ID: Severe sepsis Escherichia coli UTI -Source likely secondary to right thigh compartment syndrome -Infectious disease following. Small consolidation in the right middle lobe unlikely to be source of severe sepsis, Levaquin and Zosyn stopped for now. Rule out line infection. Infectious disease following. Previous urine culture grew Escherichia coli. Macrocytic anemia Thrombocytopenia 08/07 Acute post op anemia/ acute blood loss anemia. H/H stable fo far, monitor. -Monitor CBC, CMP, - Transfused total 4 units PRBCs, 2 pack platelets, 2 FFP 2 cryo-since admission - Hb 7.3 today. monitor closely. transfuse if <7.0 - Status post transfusion, monitor.. So far H/H stable. Right medial/lateral thigh compartment syndrome L5/S1 spondylolisthesis Status post day [address] Turner - wound VAC placement Severe Protein caloorie malnutrition: Muscle waist. Alb 1.5 . Add ensure to diet. Also on albumin with HD PROPH: -Left lower extremity SCDs. Hold subcutaneous heparin given drop in hemoglobin. Discussed with the patient, nurse, Nephrology Problem Qualifiers (1) Drug overdose: Qualified Code: T50.904A - Drug overdose, undetermined intent, initial encounter (2) Acute kidney failure: Qualified Code: N17.9 - Acute renal failure, unspecified acute renal failure type (3) Leukocytosis: Qualified Code: D72.829 - Leukocytosis, unspecified type Lashanda Lovelace MD Aug 14, 2016 15:13
--- NOTE | 2016-08-14 16:49 | HHI.NPPN ---
Subjective History of Present Illness 30 year old female with drug OD, Rt thigh compartment syndrome s/p Fasciotomy, Rhabdomyolysis, ARF Additional Remarks No acute complaints Review of Systems General Constitutional: Fatigue Musculoskeletal MS: Pain/Stiffness Objective Data Data 08/13/16 08/14/16 18:59 06:59 Intake Total 960 ml 0 ml Output Total 950 ml 450 ml Balance 10 ml -450 ml Intake Oral 960 ml 0 ml Output Urine Total 850 ml 300 ml Drainage Total 100 ml 150 ml # Bowel Movements 0 0 # Sanitary Pads 1 Pads Vital Signs Date Time Temp Pulse Resp B/P Pulse Ox O2 Delivery O2 Flow Rate FiO2 08/14/16 16:00 98.2 99 20 119/82 98 08/14/16 15:50 17 08/14/16 12:00 98.1 83 14 109/71 96 08/14/16 08:43 87 08/14/16 08:00 98.0 87 15 104/72 96 08/14/16 04:00 98.0 92 20 124/82 94 08/14/16 00:00 97.8 108 20 130/92 96 08/13/16 22:00 97 08/13/16 20:00 98.7 102 20 127/99 100 -: 08/11/16 0436 08/13/16 0336 Physical Exam General Appearance: No Acute Distress, Comfortable Neck Neck Exam: Neck Supple Pulmonary Resp Exam: Clear Bilaterally, Breath Sounds Equal Cardiology CV Exam: Regular, Normal Sinus Rhythm Gastrointestinal/Abdomen GI Exam: Soft, Non-Tender, Bowel Sounds Present Extremeties Extremities Exam: Trace Edema Neurologic Neuro Exam: Alert, Awake Assessment/Plan Problem List: (1) Acute kidney failure Plan: This is likely due to rhabdomyolysis and acute tubular necrosis Good UOP seen Continue to monitor electrolytes for recovery. Potential next dialysis would be on Tuesday - continue to monitor. (2) Compartment syndrome of right lower extremity Plan: Status post surgery (3) UTI (urinary tract infection) Plan: treated (4) Severe sepsis Plan: Status post fasciotomy right leg S/P liver biopsy Problem Qualifiers (1) Acute kidney failure: Qualified Code: N17.9 - Acute renal failure, unspecified acute renal failure type Aamir Goyal MD Aug 14, 2016 16:49
[2016-08-15] VITALS (8 sets, daily range): BP systolic 106–148; BP diastolic 71–97; PULSE 50–159; RESP 14–18; TEMP 97.6–99.5; O2SAT 95–98
[2016-08-15] MEDS: FOLIC ACID 1 MG TAB PO SCH (07:49)
[2016-08-15] MEDS: FAMOTIDINE 20 MG TAB PO SCH ×2 (07:49→19:58)
[2016-08-15] MEDS: LACTULOSE SYRUP 20 GM/30 ML CUP PO SCH ×2 (07:49→19:58)
[2016-08-15] MEDS: cloNIDine HCL 0.1 MG TAB PO SCH ×2 (07:49→19:57)
[2016-08-15] MEDS: RIFAXIMIN 550 MG TAB PO SCH ×2 (07:49→19:57)
[2016-08-15] MEDS: THIAMINE HCL 100 MG TAB PO SCH (07:49)
[2016-08-15] MEDS: ASPIRIN EC 325 MG TABEC PO SCH (07:49)
[2016-08-15] MEDS: MORPHINE SULFATE 4 MG/ML INJ IV PRN (07:49)
[2016-08-15] MEDS: SODIUM CHLORIDE 0.9% FLUSH 5 ML FLUSH IV FLUSH SCH ×2 (07:49→19:58)
[2016-08-15] MEDS: MULTIVITAMIN TAB PO SCH (07:49)
--- NOTE | 2016-08-15 10:19 | PD.CARD.PN ---
Subjective Subjective Remarks alert in nad Objective Vital Signs / I&O Vital Signs Date Time Temp Pulse Resp B/P Pulse Ox O2 Delivery O2 Flow Rate FiO2 08/15/16 08:00 99.2 106 16 148/94 96 08/15/16 07:54 17 08/15/16 07:48 98 08/15/16 04:00 99.5 101 16 138/97 98 08/15/16 00:00 98.8 93 16 123/79 97 08/14/16 20:22 96 08/14/16 20:00 99.0 94 16 111/72 97 08/14/16 16:00 98.2 99 20 119/82 98 08/14/16 15:50 17 08/14/16 12:00 98.1 83 14 109/71 96 I/O 08/14/16 08/14/16 08/14/16 08/15/16 08/15/16 08/15/16 07:00 15:00 23:00 07:00 15:00 23:00 Intake Total 360 ml 240 ml 320 ml Output Total 150 ml 405 ml 500 ml 750 ml Balance -150 ml -45 ml -260 ml -430 ml Intake Oral 360 ml 240 ml 320 ml IV Total 0 ml Output Urine Total 275 ml 500 ml 600 ml Drainage Total 150 ml 130 ml 150 ml # Bowel Movements 1 0 0 # Sanitary Pads 1 Pads 1 Pads Physical Exam GENERAL: SKIN: Warm and dry. HEAD: Normocephalic. EYES: No scleral icterus. No injection or drainage. NECK: Supple, trachea midline. No JVD or lymphadenopathy. CARDIOVASCULAR: Regular rate and rhythm without murmurs, gallops, or rubs. RESPIRATORY: Breath sounds equal bilaterally. No accessory muscle use. GASTROINTESTINAL: Abdomen soft, non-tender, nondistended. MUSCULOSKELETAL: No cyanosis, or edema. BACK: Nontender without obvious deformity. No CVA tenderness. GENERAL: SKIN: Warm and dry. HEAD: Normocephalic. EYES: No scleral icterus. No injection or drainage. NECK: Supple, trachea midline. No JVD or lymphadenopathy. CARDIOVASCULAR: Regular rate and rhythm without murmurs, gallops, or rubs. RESPIRATORY: Breath sounds equal bilaterally. No accessory muscle use. GASTROINTESTINAL: Abdomen soft, non-tender, nondistended. MUSCULOSKELETAL: No cyanosis, or edema. BACK: Nontender without obvious deformity. No CVA tenderness. Assessment and Plan Problem List: (1) Drug overdose (2) Hypocalcemia (3) SIRS (systemic inflammatory response syndrome) (4) Renal failure (5) Hyperkalemia (6) Lactic acidosis (7) Altered mental status (8) Severe sepsis (9) Elevated troponin (10) Severe metabolic acidosis (11) Acute kidney failure (12) Leukocytosis (13) Hip hematoma, right (14) Small right middle lobe consolidation (15) Rhabdomyolysis (16) Compartment syndrome of right lower extremity Assessment and Plan 1.) Elevated troponin - suspect d/t global hypoperfusion d/t hypotension form sepsis, ef=65%, patient is assymptomatic, trop < 1, on aspirin 325 mg qd, d/t arf lhc/pci would be high risk for deterioration in renal function and potential need for temporary or permanent dialysis 2.) POD 13 - hemodynamically stable 3.) ARF - d/t rhabdomyolysis from compartment syndrome, dialysis per dr Fletcher, [id number] last 24 hours 4.) HTN - started on amlodipine 10 mg qd 5.) RLE pain - slight improvement 6.) Anemia - improved s/p transfusion Problem Qualifiers (1) Drug overdose: Qualified Code: T50.904A - Drug overdose, undetermined intent, initial encounter (2) Acute kidney failure: Qualified Code: N17.9 - Acute renal failure, unspecified acute renal failure type (3) Leukocytosis: Qualified Code: D72.829 - Leukocytosis, unspecified type Luis Eduardo Carter MD Aug 15, 2016 10:19
[2016-08-15] MEDS ORDERED: METOPROLOL TARTRATE 25 MG TAB PO PRN (15:00)
--- NOTE | 2016-08-15 15:32 | HHI.NPPN ---
Subjective History of Present Illness 30 year old female with drug OD, Rt thigh compartment syndrome s/p Fasciotomy, Rhabdomyolysis, ARF Additional Remarks No acute complaints Review of Systems General Constitutional: Fatigue Musculoskeletal MS: Pain/Stiffness Objective Data Data 08/14/16 08/15/16 18:59 06:59 Intake Total 360 ml 560 ml Output Total 405 ml 1250 ml Balance -45 ml -690 ml Intake Oral 360 ml 560 ml IV Total 0 ml Output Urine Total 275 ml 1100 ml Drainage Total 130 ml 150 ml # Bowel Movements 1 0 # Sanitary Pads 1 Pads Vital Signs Date Time Temp Pulse Resp B/P Pulse Ox O2 Delivery O2 Flow Rate FiO2 08/15/16 14:28 16 08/15/16 14:20 159 08/15/16 12:00 97.6 50 14 106/71 95 08/15/16 08:00 99.2 106 16 148/94 96 08/15/16 07:54 17 08/15/16 07:48 98 08/15/16 04:00 99.5 101 16 138/97 98 08/15/16 00:00 98.8 93 16 123/79 97 08/14/16 20:22 96 08/14/16 20:00 99.0 94 16 111/72 97 08/14/16 16:00 98.2 99 20 119/82 98 -: 08/11/16 0436 08/13/16 0336 Physical Exam General Appearance: No Acute Distress, Comfortable Neck Neck Exam: Neck Supple Pulmonary Resp Exam: Clear Bilaterally, Breath Sounds Equal Cardiology CV Exam: Regular, Normal Sinus Rhythm Gastrointestinal/Abdomen GI Exam: Soft, Non-Tender, Bowel Sounds Present Extremeties Extremities Exam: Trace Edema Neurologic Neuro Exam: Alert, Awake Assessment/Plan Problem List: (1) Acute kidney failure Plan: This is likely due to rhabdomyolysis and acute tubular necrosis Good UOP seen - 1.3 L UOP/ 24 hours Check labs, plan for HD tomorrow. Continue to monitor electrolytes and UOP for signs of renal recovery. (2) Compartment syndrome of right lower extremity Plan: Status post surgery (3) UTI (urinary tract infection) Plan: treated (4) Severe sepsis Plan: Status post fasciotomy right leg S/P liver biopsy Problem Qualifiers (1) Acute kidney failure: Qualified Code: N17.9 - Acute renal failure, unspecified acute renal failure type Aamir Goyal MD Aug 15, 2016 15:32
--- NOTE | 2016-08-15 16:07 | HHI.PR ---
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 Pain is controlled by meds. She denies cp, sob. She did get tachycardic on/of after she had liver biopsy. Will check labs tomorrow am. Objective Vitals Vital Signs Date Time Temp Pulse Resp B/P Pulse Ox O2 Delivery O2 Flow Rate FiO2 08/15/16 14:28 16 08/15/16 14:20 159 08/15/16 12:00 97.6 50 14 106/71 95 08/15/16 08:00 99.2 106 16 148/94 96 08/15/16 07:54 17 08/15/16 07:48 98 08/15/16 04:00 99.5 101 16 138/97 98 08/15/16 00:00 98.8 93 16 123/79 97 08/14/16 20:22 96 08/14/16 20:00 99.0 94 16 111/72 97 I/O 08/14/16 08/14/16 08/14/16 08/15/16 08/15/16 08/15/16 07:00 15:00 23:00 07:00 15:00 23:00 Intake Total 360 ml 240 ml 320 ml 720 ml Output Total 150 ml 405 ml 500 ml 750 ml 600 ml Balance -150 ml -45 ml -260 ml -430 ml 120 ml Intake Oral 360 ml 240 ml 320 ml 720 ml IV Total 0 ml 0 ml Output Urine Total 275 ml 500 ml 600 ml 550 ml Drainage Total 150 ml 130 ml 150 ml 50 ml # Bowel Movements 1 0 0 0 # Sanitary Pads 1 Pads 1 Pads Result Diagram: 08/11/16 0436 08/13/16 0336 Imaging Last Impressions Liver Biopsy CT 08/13/16 0000 Signed Impressions: Service Date/Time: Saturday, August 13, 2016 12:42 - CONCLUSION: Uncomplicated CT guided biopsy. Raymundo Agarwal MD Chest X-Ray 08/09/16 0000 Signed Impressions: Service Date/Time: Tuesday, August 09, 2016 19:30 - CONCLUSION: 1. Interval placement of double-lumen central venous line. 2. Hazy opacity at the lung bases with mild blunting of the left costophrenic angle which could indicate a small effusion. Nael Zuñiga MD Catheter Placement X-Ray 07/30/16 0000 Signed Impressions: Service Date/Time: Saturday, July 30, 2016 14:14 - CONCLUSION: Uncomplicated line placement as above. Judson Cee MD Brain MRI 07/29/16 0000 Signed Impressions: Service Date/Time: July 13:34 - CONCLUSION: 1. Abnormal examination of the brain demonstrating areas of T2 signal and abnormal diffusion signal involving the globus pallidus bilaterally and the mesial temporal lobes bilaterally. Primary considerations would include carbon monoxide poisoning versus other partial anoxic brain injury. Please see above discussion. Aamir Narayanan MD Abdomen Ultrasound 07/26/16 0000 Signed Impressions: Service Date/Time: Tuesday, July 26, 2016 10:21 - CONCLUSION: 1. Small amount of free fluid adjacent to the lower poles of both kidneys. 2. Obscuration of the head of the pancreas, distal IVC and aorta due to overlying bowel gas. 3. Otherwise negative. Judson Cee MD Lower Extremity CT 07/25/16 0000 Signed Impressions: Service Date/Time: Monday, July 25, 2016 18:54 - CONCLUSION: Extensive nonspecific myositis of the right thigh, also involves gluteus medius and minimus proximally and at least medial gastrocnemius below the knee. Infectious/inflammatory and ischemic etiologies would be in the differential. No gas bubbles are seen to substantiate necrotizing fasciitis. No organized/drainable abscess. Glenroy Sheffield MD Hip and Pelvis X-Ray 07/25/16 0000 Signed Impressions: Service Date/Time: Monday, July 25, 2016 16:52 - CONCLUSION: Intact pelvis and right hip. Nonspecific surrounding soft tissue swelling Glenroy Sheffield MD Head CT 07/25/16 0000 Signed Impressions: Service Date/Time: Monday, July 25, 2016 14:38 - CONCLUSION: Negative noncontrast head CT. Glenroy Sheffield MD Chest CT 07/25/16 0000 Signed Impressions: Service Date/Time: Monday, July 25, 2016 16:37 - CONCLUSION: Focal dense consolidation right middle lobe, nonspecific but most likely infectious or inflammatory. Also a 3 mm right basilar pulmonary nodule Followup noncontrast chest CT in a few months recommended to confirm resolution/stability. Glenroy Sheffield MD Abdomen/Pelvis CT 07/25/16 0000 Signed Impressions: Service Date/Time: Monday, July 25, 2016 16:37 - CONCLUSION: 1. Fatty liver and 21 mm right ovarian cyst. Otherwise, no acute abnormality seen within the abdomen or pelvis. 2. Swollen, heterogeneous right hip musculature, primarily gluteus medius and minimus, rectus femoris and vastus lateralis and the adductor muscles. This is nonspecific but suggests a subacute hematoma of these structures. Nothing organized/measurable. 3. Chronic L5 pars defects with grade 2 L5/S1 spondylolisthesis. Glenroy Sheffield MD Objective Remarks GENERAL: 30-year-old female. Not in distress. Central line right internal jugular. CARDIOVASCULAR: RRR Faint systolic 2/6 murmur RESPIRATORY: clear to auscultation w no wheezing this morning. GASTROINTESTINAL: Abdomen soft, non-tender, nondistended. Hypoactive bowel sounds. Abrasions. MUSCULOSKELETAL: Right thigh currently with wound VAC lateral aspect. Right hip tender with restricted mobility. Positive peripheral edema right greater than left lower extremity, 2+. NEUROLOGICAL: Awake and alert to person, place and year. Motor grossly within normal limits. Procedures Status post right leg washout, senna graft placement and partial wound closure on 08/06. A/P Problem List: (1) Compartment syndrome of right lower extremity ICD Code: T79.A21A Status: Acute (2) Rhabdomyolysis ICD Code: M62.82 Status: Resolved (3) Severe sepsis ICD Code: A41.9 Status: Resolved (4) Altered mental status ICD Code: R41.82 Status: Resolved (5) Drug overdose ICD Code: T50.901A Status: Resolved (6) Elevated troponin ICD Code: R79.89 Status: Resolved (7) Severe metabolic acidosis Status: Resolved (8) Lactic acidosis ICD Code: E87.2 Status: Resolved (9) Transaminitis ICD Code: R74.0 Status: Acute (10) Hypocalcemia ICD Code: E83.51 Status: Acute (11) Hyperkalemia ICD Code: E87.5 Status: Acute (12) ST elevation ICD Code: R94.31 Status: Acute (13) Acute kidney failure ICD Code: N17.9 Status: Acute (14) Leukocytosis ICD Code: D72.829 Status: Resolved (15) Small right middle lobe consolidation Status: Acute (16) Hip hematoma, right ICD Code: S70.01XA Status: Acute Assessment and Plan Altered mental status. Resolved. Polysubstance abuse with drug overdose including cocaine/heroin. History of THC use. EtOH use. Counselled. Right upper extremity numbness. Resolving. S/P Liver biopsy by IR 08/13/16 -Watch for alcohol and drug withdrawal, Use PRN Ativan for anxiety and oxycodone /morphine as needed for pain. -CT of the head 07/25 revealed no acute intracranial findings. Continue aspirin , thiamine and multivitamins. -MRI brain 07/29 revealed T2 signal abnormality globus pallidus and mesial temporal lobe bilaterally. - EEG 07/30 revealed slowing system with moderate diffuse encephalopathy. No seizure activity. - Psychiatry clear to Osborn act 07/29 - neurology evaluated the patient and feels that MRI results are from drug overdose. GI getting ophthalmology consult for eval w slit lamp for Bre- Sylvia rings - 08/05 ophtalmology exam negative for Bre-Sylvia rings. Mild Respiratory insufficiency secondary to pneumonia/metabolic acidosis Small consolidation right middle lobe Right basilar pulmonary nodule 3 mm - follow-up CT chest 3 months recommended Ongoing tobaccoism -now on RA, has cough but nonproductive, continue incentive spirometry, duo nebs. -CT chest 07/25 revealed right middle lobe infiltrate along with 3 mm right basilar pulmonary nodule. -Chest x-ray 07/26 reveals no significant cardio pulmonary findings Elevated troponin Severe lactic acidosis - resolved ST elevation in V1 and V2 -Continue antibiotics,2d echo revealed EF 60-65%. NRWMA. Lactic acid has cleared on Norvasc 10 mg daily for hypertension, 0.1 mg po BID, with as needed hydralazine and Nitropaste, d/c labetalol BP stable. Continue Norvasc, clonidine. PRN hydralazine and nitropaste. with tachycardia, will repeat ekg, add metoprolol. GI: Transaminitis Rhabdomyolysis Hyperammonia -Transaminitis most likely secondary to shock/rhabdo -CT of the abdomen and pelvis shows fatty liver/21 mm right ovarian cyst -Negative hepatitis panel - Xifaxan 550 twice a day/lactulose 30 3 times a day for elevated ammonia. - Noted low ceruloplasmin. 9. 24 hr Urine copper 24, for liver biopsy on Tuesday - S/P liver biopsy 08/13/16. /Renal: Acute kidney failure Acute rhabdomyolysis - on normal saline down to 70cc an hour -07/26 renal ultrasound revealed fluid of at poles of bilateral kidneys otherwise negative - Strict intake output. - Urine electrolytes intrinsic renal process/urine eosinophils negative. - Nephrology following. Still making some urine but noted to be decreased by RN. getting HD - Noted decreased C3 of 19/C4 5, monitor creatinine. 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 Small consolidation in the right middle lobe unlikely to be source of severe sepsis, Levaquin and Zosyn stopped for now. Rule out line infection. Infectious disease following. Previous urine culture grew Escherichia coli. Macrocytic anemia Thrombocytopenia 08/07 Acute post op anemia/ acute blood loss anemia. H/H stable fo far, monitor. -Monitor CBC, CMP, - Transfused total 4 units PRBCs, 2 pack platelets, 2 FFP 2 cryo-since admission - Hb 7.3 today. monitor closely. transfuse if <7.0 - Status post transfusion, monitor.. So far H/H stable. Right medial/lateral thigh compartment syndrome L5/S1 spondylolisthesis Status post day [address] Turner - wound VAC placement Severe Protein caloorie malnutrition: Muscle waist. Alb 1.5 . Add ensure to diet. Also on albumin with HD PROPH: -Left lower extremity SCDs. Hold subcutaneous heparin given drop in hemoglobin. Discussed with the patient, nurse, Nephrology Problem Qualifiers (1) Drug overdose: Qualified Code: T50.904A - Drug overdose, undetermined intent, initial encounter (2) Acute kidney failure: Qualified Code: N17.9 - Acute renal failure, unspecified acute renal failure type (3) Leukocytosis: Qualified Code: D72.829 - Leukocytosis, unspecified type Lashanda Lovelace MD Aug 15, 2016 16:07
--- NOTE | 2016-08-15 19:14 | EKG ---
Date Performed: 08/15/2016 Time Performed: 14:56:51 PTAGE: 30 years EKG: Sinus rhythm NORMAL ECG PREVIOUS TRACING : 07/25/2016 15.42 Compared to previous tracing, heart rate has slowed, T wave amplitude has decreased diffusely. DOCTOR: Michael Noble Interpretating Date/Time 08/15/2016 19:13:02
[2016-08-15] MEDS: CHLORHEXIDINE GLUCONATE 2 % 1 PACK (2 CLOTHS) TOP SCH (19:58)
[2016-08-15] MEDS: LACTATED RINGER'S 1000 ML IV SCH (19:58)
[2016-08-16] VITALS: BP 102/66; PULSE 76; RESP 16; TEMP 97.7; O2SAT 97
[2016-08-16] MEDS: SODIUM CHLORID 0.9% 500 ML IV SCH ×2 (03:15→19:55)
[2016-08-16 04:00] VITALS: BP 116/71; PULSE 86; RESP 16; TEMP 98.6; O2SAT 96
[2016-08-16 05:48] LABS: AUTOMATED NEUTROPHIL # 3.2 TH/MM3 (1.8-7.7); EOSINOPHIL # 0.2 TH/MM3 (0-0.4); EOSINOPHIL % 3.5 % (0.0-4.0); HEMATOCRIT 21.3 % (35.0-46.0); HEMO FLAGS DIFF FINAL; LYMPH % 21.1 % (9.0-44.0); MEAN CORPUSCULAR HEMOGLOBIN 31.6 PG (27.0-34.0); MEAN CORPUSCULAR HGB CONC 35.5 % (32.0-36.0); MONO % 8.1 % (0.0-8.0); NEUT % 66.3 % (16.0-70.0); PLATELET COUNT 150 TH/MM3 (150-450); RED CELL DISTRIBUTION WIDTH 15.7 % (11.6-17.2); WHITE BLOOD COUNT 4.8 TH/MM3 (4.0-11.0)
[2016-08-16 06:31] LABS: ALKALINE PHOSPHATASE 72 U/L (45-117); ALT (GPT) 13 U/L (10-53); ANION GAP 8 MEQ/L (5-15); AST (GOT) 16 U/L (15-37); BICARBONATE 27.9 MEQ/L (21.0-32.0); BLOOD UREA NITROGEN 19 MG/DL (7-18); CHLORIDE 106 MEQ/L (98-107); GLOMERULAR FILTRATION RATE 14 ML/MIN (>89); MAGNESIUM 1.8 MG/DL (1.5-2.5); POTASSIUM 3.2 MEQ/L (3.5-5.1); SODIUM (NA) 142 MEQ/L (136-145); TOTAL BILIRUBIN ADULT 0.3 MG/DL (0.2-1.0)
[2016-08-16 08:00] VITALS: BP 116/78; PULSE 85; RESP 16; TEMP 99.3; O2SAT 96
[2016-08-16] MEDS: FOLIC ACID 1 MG TAB PO SCH (08:59)
[2016-08-16] MEDS: RIFAXIMIN 550 MG TAB PO SCH ×2 (08:59→21:06)
[2016-08-16] MEDS: THIAMINE HCL 100 MG TAB PO SCH (08:59)
[2016-08-16] MEDS: cloNIDine HCL 0.1 MG TAB PO SCH ×2 (08:59→21:06)
[2016-08-16] MEDS: ASPIRIN EC 325 MG TABEC PO SCH (09:00)
[2016-08-16] MEDS: FAMOTIDINE 20 MG TAB PO SCH ×2 (09:00→21:06)
[2016-08-16] MEDS: MULTIVITAMIN TAB PO SCH (09:00)
[2016-08-16] MEDS: SODIUM CHLORIDE 0.9% FLUSH 5 ML FLUSH IV FLUSH SCH ×2 (09:01→21:07)
[2016-08-16] MEDS: LACTULOSE SYRUP 20 GM/30 ML CUP PO SCH ×2 (09:01→21:07)
[2016-08-16] MEDS ORDERED: ONDANSETRON HCL 4 MG/2 ML VIAL IV PUSH ONE (09:21)
[2016-08-16] MEDS ORDERED: PHENYLEPH/NS 1000 MCG/10 ML SYR IV ONE (09:21)
[2016-08-16] MEDS ORDERED: PROPOFOL 200 MG/20 ML AMP IV ONE (09:21)
[2016-08-16] MEDS ORDERED: FAMOTIDINE 20 MG/2 ML VIAL ONE (10:26)
[2016-08-16] MEDS ORDERED: MIDAZOLAM HCL 2 MG/2 ML VIAL ONE (10:26)
[2016-08-16] MEDS ORDERED: ceFAZolin 2 GM PREMIX 50 ML ONE (10:28)
[2016-08-16] MEDS: POTASSIUM CHLORIDE 20 MEQ CONTROLLED RELEASE TAB PO ONE ×2 (11:30→13:54)
--- NOTE | 2016-08-16 11:30 | HHI.NPPN ---
Subjective History of Present Illness 30 year old female with drug OD, Rt thigh compartment syndrome s/p Fasciotomy, Rhabdomyolysis, ARF Additional Remarks No acute complaints Review of Systems General Constitutional: Fatigue Musculoskeletal MS: Pain/Stiffness Objective Data Data 08/15/16 08/16/16 19:00 07:00 Intake Total 720 ml 240 ml Output Total 600 ml 1025 ml Balance 120 ml -785 ml Intake Oral 720 ml 240 ml IV Total 0 ml 0 ml Output Urine Total 550 ml 900 ml Drainage Total 50 ml 125 ml # Bowel Movements 1 1 # Sanitary Pads 1 Pads Vital Signs Date Time Temp Pulse Resp B/P Pulse Ox O2 Delivery O2 Flow Rate FiO2 08/16/16 08:00 99.3 85 16 116/78 96 08/16/16 04:00 98.6 86 16 116/71 96 08/16/16 00:00 97.7 76 16 102/66 97 08/15/16 20:00 98.7 87 18 110/72 97 08/15/16 20:00 85 08/15/16 16:00 98.3 118 16 126/82 96 08/15/16 14:28 16 08/15/16 14:20 159 08/15/16 12:00 97.6 50 14 106/71 95 -: 08/16/16 0448 08/16/16 0448 Physical Exam General Appearance: No Acute Distress, Comfortable Neck Neck Exam: Neck Supple Pulmonary Resp Exam: Clear Bilaterally, Breath Sounds Equal Cardiology CV Exam: Regular, Normal Sinus Rhythm Gastrointestinal/Abdomen GI Exam: Soft, Non-Tender, Bowel Sounds Present Extremeties Extremities Exam: Trace Edema Extremeties Remarks Rt thigh vacuum dressing Neurologic Neuro Exam: Alert, Awake Assessment/Plan Problem List: (1) Acute kidney failure Plan: This is likely due to rhabdomyolysis and acute tubular necrosis Good UOP seen - 1.4 L UOP/ 24 hours ARF resolving Cr 3.7 K replace stop hemodialysis Continue to monitor electrolytes and UOP for signs of renal recovery. (2) Compartment syndrome of right lower extremity Plan: Status post surgery (3) UTI (urinary tract infection) Plan: treated (4) Severe sepsis Plan: Status post fasciotomy right leg S/P liver biopsy Problem Qualifiers (1) Acute kidney failure: Qualified Code: N17.9 - Acute renal failure, unspecified acute renal failure type Vinny Fletcher MD Aug 16, 2016 11:30
[2016-08-16] MEDS ORDERED: DO NOT ADM ANY ANTICOAGULANT DRUGS XX PRN (11:51)
--- NOTE | 2016-08-16 13:37 | HHI.PR ---
Subjective Remarks Patient was noted with tachycardia after liver biopsy, started metoprolol. Improved. Had wound vac changed today. Feels tired. Pain is controlled by meds. Objective Vitals Vital Signs Date Time Temp Pulse Resp B/P Pulse Ox O2 Delivery O2 Flow Rate FiO2 08/16/16 12:30 98.5 77 12 114/70 100 Nasal Cannula 2 08/16/16 12:15 76 12 109/67 100 Nasal Cannula 2 08/16/16 12:00 77 12 124/79 100 Nasal Cannula 2 08/16/16 11:50 98.3 91 12 133/83 99 Nasal Cannula 2 08/16/16 08:00 99.3 85 16 116/78 96 08/16/16 04:00 98.6 86 16 116/71 96 08/16/16 00:00 97.7 76 16 102/66 97 08/15/16 20:00 98.7 87 18 110/72 97 08/15/16 20:00 85 08/15/16 16:00 98.3 118 16 126/82 96 08/15/16 14:28 16 08/15/16 14:20 159 I/O 08/15/16 08/15/16 08/15/16 08/16/16 08/16/16 08/16/16 07:00 15:00 23:00 07:00 15:00 23:00 Intake Total 320 ml 720 ml 240 ml 0 ml 400 ml Output Total 750 ml 600 ml 475 ml 550 ml 600 ml Balance -430 ml 120 ml -235 ml -550 ml -200 ml Intake Oral 320 ml 720 ml 240 ml 0 ml 0 ml IV Total 0 ml 0 ml 0 ml 100 ml Other 300 ml Output Urine Total 600 ml 550 ml 400 ml 500 ml 550 ml Drainage Total 150 ml 50 ml 75 ml 50 ml Estimated Blood Loss 50 ml # Bowel Movements 0 1 1 0 # Sanitary Pads 1 Pads Result Diagram: 08/16/168 08/16/168 Imaging Last Impressions Liver Biopsy CT 08/13/16 0000 Signed Impressions: Service Date/Time: Saturday, August 13, 2016 12:42 - CONCLUSION: Uncomplicated CT guided biopsy. Raymundo Agarwal MD Chest X-Ray 08/09/16 0000 Signed Impressions: Service Date/Time: Tuesday, August 09, 2016 19:30 - CONCLUSION: 1. Interval placement of double-lumen central venous line. 2. Hazy opacity at the lung bases with mild blunting of the left costophrenic angle which could indicate a small effusion. Nael Zuñiga MD Catheter Placement X-Ray 07/30/16 0000 Signed Impressions: Service Date/Time: Saturday, July 30, 2016 14:14 - CONCLUSION: Uncomplicated line placement as above. Judson Cee MD Brain MRI 07/29/16 0000 Signed Impressions: Service Date/Time: July 13:34 - CONCLUSION: 1. Abnormal examination of the brain demonstrating areas of T2 signal and abnormal diffusion signal involving the globus pallidus bilaterally and the mesial temporal lobes bilaterally. Primary considerations would include carbon monoxide poisoning versus other partial anoxic brain injury. Please see above discussion. Aamir Narayanan MD Abdomen Ultrasound 07/26/16 0000 Signed Impressions: Service Date/Time: Tuesday, July 26, 2016 10:21 - CONCLUSION: 1. Small amount of free fluid adjacent to the lower poles of both kidneys. 2. Obscuration of the head of the pancreas, distal IVC and aorta due to overlying bowel gas. 3. Otherwise negative. Judson Cee MD Lower Extremity CT 07/25/16 0000 Signed Impressions: Service Date/Time: Monday, July 25, 2016 18:54 - CONCLUSION: Extensive nonspecific myositis of the right thigh, also involves gluteus medius and minimus proximally and at least medial gastrocnemius below the knee. Infectious/inflammatory and ischemic etiologies would be in the differential. No gas bubbles are seen to substantiate necrotizing fasciitis. No organized/drainable abscess. Glenroy Sheffield MD Hip and Pelvis X-Ray 07/25/16 0000 Signed Impressions: Service Date/Time: Monday, July 25, 2016 16:52 - CONCLUSION: Intact pelvis and right hip. Nonspecific surrounding soft tissue swelling Glenroy Sheffield MD Head CT 07/25/16 0000 Signed Impressions: Service Date/Time: Monday, July 25, 2016 14:38 - CONCLUSION: Negative noncontrast head CT. Glenroy Sheffield MD Chest CT 07/25/16 0000 Signed Impressions: Service Date/Time: Monday, July 25, 2016 16:37 - CONCLUSION: Focal dense consolidation right middle lobe, nonspecific but most likely infectious or inflammatory. Also a 3 mm right basilar pulmonary nodule Followup noncontrast chest CT in a few months recommended to confirm resolution/stability. Glenroy Sheffield MD Abdomen/Pelvis CT 07/25/16 0000 Signed Impressions: Service Date/Time: Monday, July 25, 2016 16:37 - CONCLUSION: 1. Fatty liver and 21 mm right ovarian cyst. Otherwise, no acute abnormality seen within the abdomen or pelvis. 2. Swollen, heterogeneous right hip musculature, primarily gluteus medius and minimus, rectus femoris and vastus lateralis and the adductor muscles. This is nonspecific but suggests a subacute hematoma of these structures. Nothing organized/measurable. 3. Chronic L5 pars defects with grade 2 L5/S1 spondylolisthesis. Glenroy Sheffield MD Objective Remarks GENERAL: 30-year-old female. Not in distress. Central line right internal jugular. CARDIOVASCULAR: RRR Faint systolic 2/6 murmur RESPIRATORY: clear to auscultation w no wheezing this morning. GASTROINTESTINAL: Abdomen soft, non-tender, nondistended. Hypoactive bowel sounds. Abrasions. MUSCULOSKELETAL: Right thigh currently with wound VAC lateral aspect. Right hip tender with restricted mobility. Positive peripheral edema right greater than left lower extremity, 2+. NEUROLOGICAL: Awake and alert to person, place and year. Motor grossly within normal limits. Procedures Status post right leg washout, senna graft placement and partial wound closure on 08/06. A/P Problem List: (1) Compartment syndrome of right lower extremity ICD Code: T79.A21A Status: Acute (2) Rhabdomyolysis ICD Code: M62.82 Status: Resolved (3) Severe sepsis ICD Code: A41.9 Status: Resolved (4) Altered mental status ICD Code: R41.82 Status: Resolved (5) Drug overdose ICD Code: T50.901A Status: Resolved (6) Elevated troponin ICD Code: R79.89 Status: Resolved (7) Severe metabolic acidosis Status: Resolved (8) Lactic acidosis ICD Code: E87.2 Status: Resolved (9) Transaminitis ICD Code: R74.0 Status: Acute (10) Hypocalcemia ICD Code: E83.51 Status: Acute (11) Hyperkalemia ICD Code: E87.5 Status: Acute (12) ST elevation ICD Code: R94.31 Status: Acute (13) Acute kidney failure ICD Code: N17.9 Status: Acute (14) Leukocytosis ICD Code: D72.829 Status: Resolved (15) Small right middle lobe consolidation Status: Acute (16) Hip hematoma, right ICD Code: S70.01XA Status: Acute Assessment and Plan Altered mental status. Resolved. Polysubstance abuse with drug overdose including cocaine/heroin. History of THC use. EtOH use. Counselled. Right upper extremity numbness. Resolving. S/P Liver biopsy by IR 08/13/16 -Watch for alcohol and drug withdrawal, Use PRN Ativan for anxiety and oxycodone /morphine as needed for pain. -CT of the head 07/25 revealed no acute intracranial findings. Continue aspirin , thiamine and multivitamins. -MRI brain 07/29 revealed T2 signal abnormality globus pallidus and mesial temporal lobe bilaterally. - EEG 07/30 revealed slowing system with moderate diffuse encephalopathy. No seizure activity. - Psychiatry clear to [facility] act 07/29 - neurology evaluated the patient and feels that MRI results are from drug overdose. GI getting ophthalmology consult for eval w slit lamp for Bre- Sylvia rings - 08/05 ophtalmology exam negative for Bre-Sylvia rings. Mild Respiratory insufficiency secondary to pneumonia/metabolic acidosis Small consolidation right middle lobe Right basilar pulmonary nodule 3 mm - follow-up CT chest 3 months recommended Ongoing tobaccoism -now on RA, has cough but nonproductive, continue incentive spirometry, duo nebs. -CT chest 07/25 revealed right middle lobe infiltrate along with 3 mm right basilar pulmonary nodule. -Chest x-ray 07/26 reveals no significant cardio pulmonary findings Elevated troponin Severe lactic acidosis - resolved ST elevation in V1 and V2 Sinus tachycardia, Started metoprolol. HR improved. -Continue antibiotics,2d echo revealed EF 60-65%. NRWMA. Lactic acid has cleared on Norvasc 10 mg daily for hypertension, 0.1 mg po BID, with as needed hydralazine and Nitropaste, d/c labetalol BP stable. Continue Norvasc, clonidine. PRN hydralazine and nitropaste. with tachycardia, will repeat ekg, add metoprolol. GI: Transaminitis Rhabdomyolysis Hyperammonia -Transaminitis most likely secondary to shock/rhabdo -CT of the abdomen and pelvis shows fatty liver/21 mm right ovarian cyst -Negative hepatitis panel - Xifaxan 550 twice a day/lactulose 30 3 times a day for elevated ammonia. - Noted low ceruloplasmin. 9. 24 hr Urine copper 24, for liver biopsy on Tuesday - S/P liver biopsy 08/13/16. /Renal: Acute kidney failure Acute rhabdomyolysis - on normal saline down to 70cc an hour -07/26 renal ultrasound revealed fluid of at poles of bilateral kidneys otherwise negative - Strict intake output. - Urine electrolytes intrinsic renal process/urine eosinophils negative. - Nephrology following. Still making some urine but noted to be decreased by RN. getting HD - Noted decreased C3 of 19/C4 5, monitor creatinine. 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 Small consolidation in the right middle lobe unlikely to be source of severe sepsis, Levaquin and Zosyn stopped for now. Rule out line infection. Infectious disease following. Previous urine culture grew Escherichia coli. Macrocytic anemia Thrombocytopenia 08/07 Acute post op anemia/ acute blood loss anemia. H/H stable fo far, monitor. -Monitor CBC, CMP, - Transfused total 4 units PRBCs, 2 pack platelets, 2 FFP 2 cryo-since admission - Hb 7.3 today. monitor closely. transfuse if <7.0 - Status post transfusion, monitor.. So far H/H stable. Right medial/lateral thigh compartment syndrome L5/S1 spondylolisthesis Status post day [address] Turner - wound VAC placement. Had wound vac changed 08/16/16 Severe Protein caloorie malnutrition: Muscle waist. Alb 1.5 . Add ensure to diet. Also on albumin with HD PROPH: -Left lower extremity SCDs. Hold subcutaneous heparin given drop in hemoglobin. Discussed with the patient, nurse Problem Qualifiers (1) Drug overdose: Qualified Code: T50.904A - Drug overdose, undetermined intent, initial encounter (2) Acute kidney failure: Qualified Code: N17.9 - Acute renal failure, unspecified acute renal failure type (3) Leukocytosis: Qualified Code: D72.829 - Leukocytosis, unspecified type Lashanda Lovelace MD Aug 16, 2016 13:37
[2016-08-16] MEDS ORDERED: ceFAZolin 2 GM PREMIX 50 ML IV SCH (14:30)
[2016-08-16 16:00] VITALS: BP 105/69; PULSE 83; RESP 17; TEMP 98.3; O2SAT 100
--- NOTE | 2016-08-16 17:21 | PD.CARD.PN ---
Subjective Subjective Remarks alert in nad Objective Vital Signs / I&O Vital Signs Date Time Temp Pulse Resp B/P Pulse Ox O2 Delivery O2 Flow Rate FiO2 08/16/16 16:00 98.3 83 17 105/69 100 08/16/16 12:30 98.5 77 12 114/70 100 Nasal Cannula 2 08/16/16 12:15 76 12 109/67 100 Nasal Cannula 2 08/16/16 12:00 77 12 124/79 100 Nasal Cannula 2 08/16/16 11:50 98.3 91 12 133/83 99 Nasal Cannula 2 08/16/16 08:00 99.3 85 16 116/78 96 08/16/16 04:00 98.6 86 16 116/71 96 08/16/16 00:00 97.7 76 16 102/66 97 08/15/16 20:00 98.7 87 18 110/72 97 08/15/16 20:00 85 I/O 08/15/16 08/15/16 08/15/16 08/16/16 08/16/16 08/16/16 06:59 14:59 22:59 06:59 14:59 22:59 Intake Total 320 ml 720 ml 240 ml 0 ml 400 ml Output Total 750 ml 600 ml 475 ml 550 ml 725 ml Balance -430 ml 120 ml -235 ml -550 ml -325 ml Intake Oral 320 ml 720 ml 240 ml 0 ml 0 ml IV Total 0 ml 0 ml 0 ml 100 ml Other 300 ml Output Urine Total 600 ml 550 ml 400 ml 500 ml 675 ml Drainage Total 150 ml 50 ml 75 ml 50 ml Estimated Blood Loss 50 ml # Bowel Movements 0 1 1 0 0 # Sanitary Pads 1 Pads Physical Exam GENERAL: SKIN: Warm and dry. HEAD: Normocephalic. EYES: No scleral icterus. No injection or drainage. NECK: Supple, trachea midline. No JVD or lymphadenopathy. CARDIOVASCULAR: Regular rate and rhythm without murmurs, gallops, or rubs. RESPIRATORY: Breath sounds equal bilaterally. No accessory muscle use. GASTROINTESTINAL: Abdomen soft, non-tender, nondistended. MUSCULOSKELETAL: No cyanosis, or edema. BACK: Nontender without obvious deformity. No CVA tenderness. GENERAL: SKIN: Warm and dry. HEAD: Normocephalic. EYES: No scleral icterus. No injection or drainage. NECK: Supple, trachea midline. No JVD or lymphadenopathy. CARDIOVASCULAR: Regular rate and rhythm without murmurs, gallops, or rubs. RESPIRATORY: Breath sounds equal bilaterally. No accessory muscle use. GASTROINTESTINAL: Abdomen soft, non-tender, nondistended. MUSCULOSKELETAL: No cyanosis, or edema. BACK: Nontender without obvious deformity. No CVA tenderness. Laboratory Laboratory Tests Test 08/16/16 04:48 White Blood Count 4.8 TH/MM3 Red Blood Count 2.40 MIL/MM3 Hemoglobin 7.6 GM/DL Hematocrit 21.3 % Mean Corpuscular Volume 89.0 FL Mean Corpuscular Hemoglobin 31.6 PG Mean Corpuscular Hemoglobin 35.5 % Concent Red Cell Distribution Width 15.7 % Platelet Count 150 TH/MM3 Mean Platelet Volume 7.8 FL Neutrophils (%) (Auto) 66.3 % Lymphocytes (%) (Auto) 21.1 % Monocytes (%) (Auto) 8.1 % Eosinophils (%) (Auto) 3.5 % Basophils (%) (Auto) 1.0 % Neutrophils # (Auto) 3.2 TH/MM3 Lymphocytes # (Auto) 1.0 TH/MM3 Monocytes # (Auto) 0.4 TH/MM3 Eosinophils # (Auto) 0.2 TH/MM3 Basophils # (Auto) 0.0 TH/MM3 CBC Comment DIFF FINAL Differential Comment Sodium Level 142 MEQ/L Potassium Level 3.2 MEQ/L Chloride Level 106 MEQ/L Carbon Dioxide Level 27.9 MEQ/L Anion Gap 8 MEQ/L Blood Urea Nitrogen 19 MG/DL Creatinine 3.73 MG/DL Estimat Glomerular Filtration 14 ML/MIN Rate Random Glucose 93 MG/DL Calcium Level 8.1 MG/DL Phosphorus Level 5.0 MG/DL Magnesium Level 1.8 MG/DL Total Bilirubin 0.3 MG/DL Aspartate Amino Transf 16 U/L (AST/SGOT) Alanine Aminotransferase 13 U/L (ALT/SGPT) Alkaline Phosphatase 72 U/L Total Protein 4.7 GM/DL Albumin 1.7 GM/DL Assessment and Plan Problem List: (1) Drug overdose (2) Hypocalcemia (3) SIRS (systemic inflammatory response syndrome) (4) Renal failure (5) Hyperkalemia (6) Lactic acidosis (7) Altered mental status (8) Severe sepsis (9) Elevated troponin (10) Severe metabolic acidosis (11) Acute kidney failure (12) Leukocytosis (13) Hip hematoma, right (14) Small right middle lobe consolidation (15) Rhabdomyolysis (16) Compartment syndrome of right lower extremity Assessment and Plan 1.) Elevated troponin - suspect d/t global hypoperfusion d/t hypotension form sepsis, ef=65%, patient is assymptomatic, trop < 1, on aspirin 325 mg qd, d/t arf lhc/pci would be high risk for deterioration in renal function and potential need for temporary or permanent dialysis 2.) POD 13 - hemodynamically stable 3.) ARF - d/t rhabdomyolysis from compartment syndrome, dialysis per dr Fletcher, uo @ 1200 last 24 hours, creatinine improving 4.) HTN - started on amlodipine 10 mg qd 5.) RLE pain - slight improvement 6.) Anemia - improved s/p transfusion Problem Qualifiers (1) Drug overdose: Qualified Code: T50.904A - Drug overdose, undetermined intent, initial encounter (2) Acute kidney failure: Qualified Code: N17.9 - Acute renal failure, unspecified acute renal failure type (3) Leukocytosis: Qualified Code: D72.829 - Leukocytosis, unspecified type Luis Eduardo Carter MD Aug 16, 2016 17:21
[2016-08-16 20:00] VITALS: BP 114/75; PULSE 89; RESP 16; TEMP 99.4; O2SAT 97
[2016-08-17] VITALS (7 sets, daily range): BP systolic 105–116; BP diastolic 69–76; PULSE 75–86; RESP 16–20; TEMP 98–99.3; O2SAT 95–96
[2016-08-17] MEDS: CHLORHEXIDINE GLUCONATE 2 % 1 PACK (2 CLOTHS) TOP SCH (04:00)
[2016-08-17] MEDS: THIAMINE HCL 100 MG TAB PO SCH (08:43)
[2016-08-17] MEDS: MULTIVITAMIN TAB PO SCH (08:43)
[2016-08-17] MEDS: RIFAXIMIN 550 MG TAB PO SCH ×2 (08:44→19:25)
[2016-08-17] MEDS: SODIUM CHLORIDE 0.9% FLUSH 5 ML FLUSH IV FLUSH SCH ×2 (08:44→19:25)
[2016-08-17] MEDS: LACTULOSE SYRUP 20 GM/30 ML CUP PO SCH ×2 (08:44→19:24)
[2016-08-17] MEDS: ASPIRIN EC 325 MG TABEC PO SCH (08:44)
[2016-08-17] MEDS: FOLIC ACID 1 MG TAB PO SCH (08:44)
[2016-08-17] MEDS: FAMOTIDINE 20 MG TAB PO SCH ×2 (08:44→19:24)
[2016-08-17] MEDS: cloNIDine HCL 0.1 MG TAB PO SCH ×2 (08:44→19:25)
--- NOTE | 2016-08-17 08:51 | HHI.NPPN ---
Subjective History of Present Illness 30 year old female with drug OD, Rt thigh compartment syndrome s/p Fasciotomy, Rhabdomyolysis, ARF Additional Remarks No acute complaints Review of Systems General Constitutional: Fatigue Musculoskeletal MS: Pain/Stiffness Objective Data Data 08/16/16 08/17/16 19:00 07:00 Intake Total 400 ml 560 ml Output Total 725 ml 675 ml Balance -325 ml -115 ml Intake Oral 0 ml 560 ml IV Total 100 ml Other 300 ml Output Urine Total 675 ml 675 ml Estimated Blood Loss 50 ml # Bowel Movements 0 1 Vital Signs Date Time Temp Pulse Resp B/P Pulse Ox O2 Delivery O2 Flow Rate FiO2 08/17/16 08:00 98.6 82 20 113/76 96 08/17/16 04:00 99.3 81 16 108/75 96 08/17/16 00:00 99.0 86 16 108/70 96 08/16/16 22:06 16 08/16/16 20:00 99.4 89 16 114/75 97 08/16/16 16:00 98.3 83 17 105/69 100 08/16/16 12:30 98.5 77 12 114/70 100 Nasal Cannula 2 08/16/16 12:15 76 12 109/67 100 Nasal Cannula 2 08/16/16 12:00 77 12 124/79 100 Nasal Cannula 2 08/16/16 11:50 98.3 91 12 133/83 99 Nasal Cannula 2 -: 08/16/168 08/16/168 Physical Exam General Appearance: No Acute Distress, Comfortable Neck Neck Exam: Neck Supple Pulmonary Resp Exam: Clear Bilaterally, Breath Sounds Equal Cardiology CV Exam: Regular, Normal Sinus Rhythm Gastrointestinal/Abdomen GI Exam: Soft, Non-Tender, Bowel Sounds Present Extremeties Extremities Exam: Trace Edema Extremeties Remarks Rt thigh vacuum dressing Neurologic Neuro Exam: Alert, Awake Assessment/Plan Problem List: (1) Acute kidney failure Plan: This is likely due to rhabdomyolysis and acute tubular necrosis Good UOP seen - 1.3 L UOP/ 24 hours ARF resolving Cr 3.7 K replaced stop hemodialysis Dr. Romero to follow till weekend (2) Compartment syndrome of right lower extremity Plan: Status post surgery (3) UTI (urinary tract infection) Plan: treated (4) Severe sepsis Plan: Status post fasciotomy right leg S/P liver biopsy Problem Qualifiers (1) Acute kidney failure: Qualified Code: N17.9 - Acute renal failure, unspecified acute renal failure type Vinny Fletcher MD Aug 17, 2016 08:51
[2016-08-17 12:00] LABS: BICARBONATE 25.8 MEQ/L (21.0-32.0); POTASSIUM 3.7 MEQ/L (3.5-5.1)
--- NOTE | 2016-08-17 13:13 | PD.CARD.PN ---
Subjective Subjective Remarks alert in nad Objective Vital Signs / I&O Vital Signs Date Time Temp Pulse Resp B/P Pulse Ox O2 Delivery O2 Flow Rate FiO2 08/17/16 11:36 98.0 77 19 116/76 96 08/17/16 08:00 98.6 82 20 113/76 96 08/17/16 04:00 99.3 81 16 108/75 96 08/17/16 00:00 99.0 86 16 108/70 96 08/16/16 22:06 16 08/16/16 20:00 99.4 89 16 114/75 97 08/16/16 16:00 98.3 83 17 105/69 100 I/O 08/16/16 08/16/16 08/16/16 08/17/16 08/17/16 08/17/16 06:59 14:59 22:59 06:59 14:59 22:59 Intake Total 0 ml 400 ml 560 ml Output Total 550 ml 725 ml 675 ml 230 ml Balance -550 ml -325 ml -115 ml -230 ml Intake Oral 0 ml 0 ml 560 ml IV Total 0 ml 100 ml Other 300 ml Output Urine Total 500 ml 675 ml 675 ml Drainage Total 50 ml 230 ml Estimated Blood Loss 50 ml # Bowel Movements 0 0 1 Physical Exam GENERAL: SKIN: Warm and dry. HEAD: Normocephalic. EYES: No scleral icterus. No injection or drainage. NECK: Supple, trachea midline. No JVD or lymphadenopathy. CARDIOVASCULAR: Regular rate and rhythm without murmurs, gallops, or rubs. RESPIRATORY: Breath sounds equal bilaterally. No accessory muscle use. GASTROINTESTINAL: Abdomen soft, non-tender, nondistended. MUSCULOSKELETAL: No cyanosis, or edema. BACK: Nontender without obvious deformity. No CVA tenderness. GENERAL: SKIN: Warm and dry. HEAD: Normocephalic. EYES: No scleral icterus. No injection or drainage. NECK: Supple, trachea midline. No JVD or lymphadenopathy. CARDIOVASCULAR: Regular rate and rhythm without murmurs, gallops, or rubs. RESPIRATORY: Breath sounds equal bilaterally. No accessory muscle use. GASTROINTESTINAL: Abdomen soft, non-tender, nondistended. MUSCULOSKELETAL: No cyanosis, or edema. BACK: Nontender without obvious deformity. No CVA tenderness. Laboratory Laboratory Tests Test 08/17/16 10:50 Sodium Level 143 MEQ/L Potassium Level 3.7 MEQ/L Chloride Level 109 MEQ/L Carbon Dioxide Level 25.8 MEQ/L Anion Gap 8 MEQ/L Blood Urea Nitrogen 16 MG/DL Creatinine 3.33 MG/DL Estimat Glomerular Filtration 16 ML/MIN Rate Random Glucose 95 MG/DL Calcium Level 8.2 MG/DL Assessment and Plan Problem List: (1) Drug overdose (2) Hypocalcemia (3) SIRS (systemic inflammatory response syndrome) (4) Renal failure (5) Hyperkalemia (6) Lactic acidosis (7) Altered mental status (8) Severe sepsis (9) Elevated troponin (10) Severe metabolic acidosis (11) Acute kidney failure (12) Leukocytosis (13) Hip hematoma, right (14) Small right middle lobe consolidation (15) Rhabdomyolysis (16) Compartment syndrome of right lower extremity Assessment and Plan 1.) Elevated troponin - suspect d/t global hypoperfusion d/t hypotension form sepsis, ef=65%, patient is assymptomatic, trop < 1, on aspirin 325 mg qd, d/t arf lhc/pci would be high risk for deterioration in renal function and potential need for temporary or permanent dialysis 2.) POD 15 - hemodynamically stable 3.) ARF - d/t rhabdomyolysis from compartment syndrome, dialysis per dr Fletcher, uo @ 1350 last 24 hours, creatinine improving at 3.3 today 4.) HTN - started on amlodipine 10 mg qd 5.) RLE pain - slight improvement 6.) Anemia - improved s/p transfusion Problem Qualifiers (1) Drug overdose: Qualified Code: T50.904A - Drug overdose, undetermined intent, initial encounter (2) Acute kidney failure: Qualified Code: N17.9 - Acute renal failure, unspecified acute renal failure type (3) Leukocytosis: Qualified Code: D72.829 - Leukocytosis, unspecified type Luis Eduardo Carter MD Aug 17, 2016 13:13
--- NOTE | 2016-08-17 15:09 | PD.CAR.PN ---
CVT Progress Note Subjective/Hospital Course: Patient with clinical findings of medial and lateral thigh compartment syndrome For OR now Thanks Delaney 07/26/16 Patient underwent yesterday and medial and lateral fasciotomy of the thigh debridement Today she underwent washout the both, closure of the medial fasciotomy skin and wound VAC placement on lateral fasciotomy The lateral fasciotomy will need wound VAC for but 2 weeks and then this can be covered with the partial-thickness skin graft by plastic surgery 07/27/16 Status post the thigh compartment syndrome with medial and lateral fasciotomy of the right leg Yesterday patient went for washout closure and drainage of the medial fasciotomy site while the lateral fasciotomy from hip to the knee remains open Wound VAC in place Hemoglobin now stable and there is no other source of bleeding Patient was in active DIC and fibrinolysis for the first 48 hours and this is now abating Agree with blood and blood products administration Platelets remain stable and unless these drop on the 30,000 would probably not transfuse Patient can be out of bed and should be bearing weight on this leg as much as possible 07/28/16 CHAZ drainage from the medial closure of the thighs decreased but I will leave it in till the swelling decreases and the third space abates for otherwise patient will develop a seroma in this area Lateral incision now covered with a wound VAC is draining minimally Hemoglobin remains stable Plan Starting tomorrow will have wound care assist with changing wound VAC at the bedside and I will consult plastic surgery for grafting of the wound in the near future 07/29/16 Medial compartment is closed and drainage is minimal so we will DC CHAZ Lateral thigh compartment is open clean and we will start wound VAC changes today Eventually patient will go to the OR for another washout and perhaps little more closure of this area but for the most part she will need a skin grafting of this area 07/30/2016 Medial incision is clean and dry Lateral incision wound VAC has been changed yesterday and he looks nice and clean and granulating nicely Patient will need several wound VAC exchange to before graft can be placed in this area Continue care Patient can transfer to the floor from my point 08/05/16 The patient will undergo tomorrow placement of acellular matrix xenograft in the operating room Wound VAC will then remain on it for about 10 days and then after that patient can be grafted This procedure should take about 30 minutes and then patient will be able to go to rehabilitation or even [place] for about 10 days and then return to us for grafting 08/07/16 Patient underwent yesterday washout of her fasciotomy site of the right thigh with placement of a acellular xenograft to improve granulation and the allow for eventual partial-thickness skin graft placement The drainage from the wound VAC at this point will be copious considering the inflammatory reaction that the xenograft induces so this is expected. In addition patient dropped hemoglobin and will be given 2 units of blood The wound VAC will stay on for about 9 days at this point so patient can either stay in our hospital or be transferred possibly to [place] till the time comes to remove the wound VAC for it will have to be done in the operating room At that time area will be ready for grafting or he may need another 10 days of xenograft is a granulation is not sufficient I will consult Dr. Juares to see the patient for skin grafting when the time comes 08/10/16 Wound VAC is in position and drainage has now significantly decreased Patient is excellent distal pulses and leg is warm Patient could move to [place] from my point till the time comes to remove the wound VAC is another week Nothing to add to care let this time 08/12/16 Patient doing well at this time Drainage from the wound VAC is minimal Patient will be taken back to the operating room on Tuesday for evaluation and washout with possible grafting Patient may need another 9 or 10 days of the acellular matrix depending on the granulation tissue present next week or may be graftable next week We'll consult Dr. Juares for the grafting 08/17/16 Patient underwent yesterday washout reapplication off acellular matrix with placement of the wound VAC Incisions are clean and dry, stitches have been removed proximal and distal to the fasciotomy defect and fasciotomies covered with the above mentioned wound VAC Serosanguineous drainage By next week patient will be ready for skin grafting and Dr. Juares will be consulted Objective: Vital Signs Date Time Temp Pulse Resp B/P Pulse Ox O2 Delivery O2 Flow Rate FiO2 08/17/16 11:36 98.0 77 19 116/76 96 08/17/16 08:00 98.6 82 20 113/76 96 08/17/16 04:00 99.3 81 16 108/75 96 08/17/16 00:00 99.0 86 16 108/70 96 08/16/16 22:06 16 08/16/16 20:00 99.4 89 16 114/75 97 08/16/16 16:00 98.3 83 17 105/69 100 Labs: Laboratory Tests Test 08/17/16 10:50 Sodium Level 143 MEQ/L (136-145) Potassium Level 3.7 MEQ/L (3.5-5.1) Chloride Level 109 MEQ/L (98-107) Carbon Dioxide Level 25.8 MEQ/L (21.0-32.0) Anion Gap 8 MEQ/L (5-15) Blood Urea Nitrogen 16 MG/DL (7-18) Creatinine 3.33 MG/DL (0.50-1.00) Estimat Glomerular Filtration 16 ML/MIN (>89) Rate Random Glucose 95 MG/DL (74-106) Calcium Level 8.2 MG/DL (8.5-10.1) Result Diagram: 08/16/16 0448 08/17/16 1050 (1) Drug overdose (2) Hypocalcemia (3) SIRS (systemic inflammatory response syndrome) (4) Renal failure (5) Hyperkalemia (6) Lactic acidosis (7) Altered mental status (8) Severe sepsis (9) Elevated troponin (10) Severe metabolic acidosis (11) Acute kidney failure (12) Leukocytosis (13) Hip hematoma, right (14) Small right middle lobe consolidation (15) Rhabdomyolysis (16) Compartment syndrome of right lower extremity Problem Qualifiers (1) Drug overdose: Qualified Code: T50.904A - Drug overdose, undetermined intent, initial encounter (2) Acute kidney failure: Qualified Code: N17.9 - Acute renal failure, unspecified acute renal failure type (3) Leukocytosis: Qualified Code: D72.829 - Leukocytosis, unspecified type Saw Turner MD Aug 17, 2016 15:09
--- NOTE | 2016-08-17 15:09 | HHI.GIFU ---
Subjective Remarks Patient is resting in bed, denies nausea, vomiting, abd pain, or bleeding, liver bx pending (Riri Gutierrez JOSS) Objective Vitals I&O Vital Signs Date Time Temp Pulse Resp B/P Pulse Ox O2 Delivery O2 Flow Rate FiO2 08/17/16 11:36 98.0 77 19 116/76 96 08/17/16 08:00 98.6 82 20 113/76 96 08/17/16 04:00 99.3 81 16 108/75 96 08/17/16 00:00 99.0 86 16 108/70 96 08/16/16 22:06 16 08/16/16 20:00 99.4 89 16 114/75 97 08/16/16 16:00 98.3 83 17 105/69 100 I/O 08/16/16 08/16/16 08/16/16 08/17/16 08/17/16 08/17/16 07:00 15:00 23:00 07:00 15:00 23:00 Intake Total 0 ml 400 ml 320 ml 240 ml 0 ml Output Total 550 ml 725 ml 275 ml 400 ml 780 ml Balance -550 ml -325 ml 45 ml -160 ml -780 ml Intake Oral 0 ml 0 ml 320 ml 240 ml 0 ml IV Total 0 ml 100 ml Other 300 ml Output Urine Total 500 ml 675 ml 275 ml 400 ml 550 ml Drainage Total 50 ml 230 ml Estimated Blood Loss 50 ml # Bowel Movements 0 0 1 0 0 Laboratory Laboratory Tests Test 08/17/16 10:50 Sodium Level 143 Potassium Level 3.7 Chloride Level 109 Carbon Dioxide Level 25.8 Anion Gap 8 Blood Urea Nitrogen 16 Creatinine 3.33 Estimat Glomerular Filtration 16 Rate Random Glucose 95 Calcium Level 8.2 Imaging Last Impressions Liver Biopsy CT 08/13/16 0000 Signed Impressions: Service Date/Time: Saturday, August 13, 2016 12:42 - CONCLUSION: Uncomplicated CT guided biopsy. Raymundo Agarwal MD Chest X-Ray 08/09/16 0000 Signed Impressions: Service Date/Time: Tuesday, August 09, 2016 19:30 - CONCLUSION: 1. Interval placement of double-lumen central venous line. 2. Hazy opacity at the lung bases with mild blunting of the left costophrenic angle which could indicate a small effusion. Nael Zuñiga MD Catheter Placement X-Ray 07/30/16 0000 Signed Impressions: Service Date/Time: Saturday, July 30, 2016 14:14 - CONCLUSION: Uncomplicated line placement as above. Judson Cee MD Brain MRI 07/29/16 0000 Signed Impressions: Service Date/Time: July 13:34 - CONCLUSION: 1. Abnormal examination of the brain demonstrating areas of T2 signal and abnormal diffusion signal involving the globus pallidus bilaterally and the mesial temporal lobes bilaterally. Primary considerations would include carbon monoxide poisoning versus other partial anoxic brain injury. Please see above discussion. Aamir Narayanan MD Abdomen Ultrasound 07/26/16 0000 Signed Impressions: Service Date/Time: Tuesday, July 26, 2016 10:21 - CONCLUSION: 1. Small amount of free fluid adjacent to the lower poles of both kidneys. 2. Obscuration of the head of the pancreas, distal IVC and aorta due to overlying bowel gas. 3. Otherwise negative. Judson Cee MD Lower Extremity CT 07/25/16 0000 Signed Impressions: Service Date/Time: Monday, July 25, 2016 18:54 - CONCLUSION: Extensive nonspecific myositis of the right thigh, also involves gluteus medius and minimus proximally and at least medial gastrocnemius below the knee. Infectious/inflammatory and ischemic etiologies would be in the differential. No gas bubbles are seen to substantiate necrotizing fasciitis. No organized/drainable abscess. Glenroy Sheffield MD Hip and Pelvis X-Ray 07/25/16 0000 Signed Impressions: Service Date/Time: Monday, July 25, 2016 16:52 - CONCLUSION: Intact pelvis and right hip. Nonspecific surrounding soft tissue swelling Glenroy Sheffield MD Head CT 07/25/16 0000 Signed Impressions: Service Date/Time: Monday, July 25, 2016 14:38 - CONCLUSION: Negative noncontrast head CT. Glenroy Sheffield MD Chest CT 07/25/16 0000 Signed Impressions: Service Date/Time: Monday, July 25, 2016 16:37 - CONCLUSION: Focal dense consolidation right middle lobe, nonspecific but most likely infectious or inflammatory. Also a 3 mm right basilar pulmonary nodule Followup noncontrast chest CT in a few months recommended to confirm resolution/stability. Glenroy Sheffield MD Abdomen/Pelvis CT 07/25/16 0000 Signed Impressions: Service Date/Time: Monday, July 25, 2016 16:37 - CONCLUSION: 1. Fatty liver and 21 mm right ovarian cyst. Otherwise, no acute abnormality seen within the abdomen or pelvis. 2. Swollen, heterogeneous right hip musculature, primarily gluteus medius and minimus, rectus femoris and vastus lateralis and the adductor muscles. This is nonspecific but suggests a subacute hematoma of these structures. Nothing organized/measurable. 3. Chronic L5 pars defects with grade 2 L5/S1 spondylolisthesis. Glenroy Sheffield MD Physical Exam CHEST: CTA CARDIAC: RRR ABDOMEN: Soft, nondistended, nontender; no hepatosplenomegaly; bowel sounds are present in all four quadrants. EXTREMITIES: No clubbing, cyanosis. Right thigh lateral wound with wound vac d/ i. RLE edema SKIN: Normal; no rash; no jaundice. ORDINARY SEAMAN: No focal deficits; alert and oriented times three. (Riri Gutierrez) Assessment and Plan Plan ASSESSMENT: - Elevated LFTs, possibly combination of shocked liver and rhabdomyolysis. Abdomen Ultrasound (07/26/16)----> 1. Small amount of free fluid adjacent to the lower poles of both kidneys. 2. Obscuration of the head of the pancreas, distal IVC and aorta due to overlying bowel gas. 3. Otherwise negative. Abdomen/Pelvis CT (07/25/16)----> 1. Fatty liver and 21 mm right ovarian cyst. Otherwise, no acute abnormality seen within the abdomen or pelvis. 2. Swollen, heterogeneous right hip musculature, primarily gluteus medius and minimus, rectus femoris and vastus lateralis and the adductor muscles. This is nonspecific but suggests a subacute hematoma of these structures. Nothing organized/measurable. 3. Chronic L5 pars defects with grade 2 L5/S1 spondylolisthesis. Toxicology report---- > Acetaminophen less than 2.0, Salicylates less than 1.7, Ethyl alcohol 28, toxicology screen negative- although the patient reports that she does use pills and smoke marijuana. Hepatitis panel negative. She does have documented episodes of hypotension as well as rhabdomyolysis. JORY negative, ASMA negative, AMA negative, Ferritin 400, Iron saturation 81.4 (post transfusion), Ceruloplasmin 9, ALpha 1 Antitrypsin 95. 24 hour urine for copper 27, copper concentration 46- normal limits. 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 LFTs have normalized. Liver biopsy is scheduled for Tuesday (ASA has to be held for 5 days). - Low Ceruloplasmin level 9. Brain MRI (07/29/16)----> 1. Abnormal examination of the brain demonstrating areas of T2 signal and abnormal diffusion signal involving the globus pallidus bilaterally and the mesial temporal lobes bilaterally. Primary considerations would include carbon monoxide poisoning versus other partial anoxic brain injury. Please see above discussion. Of note, Branden's disease was also mentioned in the differential. 24 hour urine for copper 27, copper concentration 46- normal limits. S/p ophthalmology slit lamp exam-----> normal exam. Liver biopsy. - Low Alpha 1 Antitrypsin 95. Rpt. high- 192, Phenotype MM - AMS, IMPROVED. Xifaxan, Lactulose. - Rhabdomyolysis. IMPROVED - Compartment syndrome, s/p fasciotomy, wound vac placement. Went to OR 08/06 for washout of her fasciotomy site of the right thigh with placement of a acellular xenograft - Sepsis, elevated lactic acid, likely t/t right thigh compartment syndrome. - Coagulopathy, IMPROVED - Anemia, stable. - CARLITO, HD per renal 08/17/16- liver bx still pending, patient her self denies any GI issues, LFTs normal., a drop in hgb yesterday was 7.6, no obvious bleeding reported Plan: - JACY - Await Liver biopsy - Monitor LFTs - Monitor HH - Transfuse as necessary - Avoid hypotension - Avoid hepatotoxins - Supportive care - Further recommendations to follow based on results of above - PT seen and examined by and myself (Riri Gutierrez) Physician Comments Seen and examined, plan as above. (Rk Dempsey MD) Riri Gutierrez Aug 17, 2016 15:09 Rk Dempsey MD Aug 17, 2016 15:15
--- NOTE | 2016-08-17 20:30 | HHI.PR ---
Subjective Remarks Feels much better today. Pain is controlled by meds. Patient has recent wound vac change. She is progressing with PT , able to use bedside commode. Will remove jeffrey. No fever or chills. Objective Vitals Vital Signs Date Time Temp Pulse Resp B/P Pulse Ox O2 Delivery O2 Flow Rate FiO2 08/17/16 16:00 98.5 75 19 109/70 95 08/17/16 11:36 98.0 77 19 116/76 96 08/17/16 08:00 98.6 82 20 113/76 96 08/17/16 04:00 99.3 81 16 108/75 96 08/17/16 00:00 99.0 86 16 108/70 96 08/16/16 22:06 16 I/O 08/16/16 08/16/16 08/16/16 08/17/16 08/17/16 08/17/16 07:00 15:00 23:00 07:00 15:00 23:00 Intake Total 0 ml 400 ml 320 ml 240 ml 0 ml Output Total 550 ml 725 ml 275 ml 400 ml 780 ml Balance -550 ml -325 ml 45 ml -160 ml -780 ml Intake Oral 0 ml 0 ml 320 ml 240 ml 0 ml IV Total 0 ml 100 ml Other 300 ml Output Urine Total 500 ml 675 ml 275 ml 400 ml 550 ml Drainage Total 50 ml 230 ml Estimated Blood Loss 50 ml # Bowel Movements 0 0 1 0 0 Result Diagram: 08/16/16 0448 08/17/16 1050 Imaging Last Impressions Liver Biopsy CT 08/13/16 0000 Signed Impressions: Service Date/Time: Saturday, August 13, 2016 12:42 - CONCLUSION: Uncomplicated CT guided biopsy. Raymundo Agarwal MD Chest X-Ray 08/09/16 0000 Signed Impressions: Service Date/Time: Tuesday, August 09, 2016 19:30 - CONCLUSION: 1. Interval placement of double-lumen central venous line. 2. Hazy opacity at the lung bases with mild blunting of the left costophrenic angle which could indicate a small effusion. Nael Zuñiga MD Catheter Placement X-Ray 07/30/16 0000 Signed Impressions: Service Date/Time: Saturday, July 30, 2016 14:14 - CONCLUSION: Uncomplicated line placement as above. Judson Cee MD Brain MRI 07/29/16 0000 Signed Impressions: Service Date/Time: July 13:34 - CONCLUSION: 1. Abnormal examination of the brain demonstrating areas of T2 signal and abnormal diffusion signal involving the globus pallidus bilaterally and the mesial temporal lobes bilaterally. Primary considerations would include carbon monoxide poisoning versus other partial anoxic brain injury. Please see above discussion. Aamir Narayanan MD Abdomen Ultrasound 07/26/16 0000 Signed Impressions: Service Date/Time: Tuesday, July 26, 2016 10:21 - CONCLUSION: 1. Small amount of free fluid adjacent to the lower poles of both kidneys. 2. Obscuration of the head of the pancreas, distal IVC and aorta due to overlying bowel gas. 3. Otherwise negative. Judson Cee MD Lower Extremity CT 07/25/16 0000 Signed Impressions: Service Date/Time: Monday, July 25, 2016 18:54 - CONCLUSION: Extensive nonspecific myositis of the right thigh, also involves gluteus medius and minimus proximally and at least medial gastrocnemius below the knee. Infectious/inflammatory and ischemic etiologies would be in the differential. No gas bubbles are seen to substantiate necrotizing fasciitis. No organized/drainable abscess. Glenroy Sheffield MD Hip and Pelvis X-Ray 07/25/16 0000 Signed Impressions: Service Date/Time: Monday, July 25, 2016 16:52 - CONCLUSION: Intact pelvis and right hip. Nonspecific surrounding soft tissue swelling Glenroy Sheffield MD Head CT 07/25/16 0000 Signed Impressions: Service Date/Time: Monday, July 25, 2016 14:38 - CONCLUSION: Negative noncontrast head CT. Glenroy Sheffield MD Chest CT 07/25/16 0000 Signed Impressions: Service Date/Time: Monday, July 25, 2016 16:37 - CONCLUSION: Focal dense consolidation right middle lobe, nonspecific but most likely infectious or inflammatory. Also a 3 mm right basilar pulmonary nodule Followup noncontrast chest CT in a few months recommended to confirm resolution/stability. Glenroy Sheffield MD Abdomen/Pelvis CT 07/25/16 0000 Signed Impressions: Service Date/Time: Monday, July 25, 2016 16:37 - CONCLUSION: 1. Fatty liver and 21 mm right ovarian cyst. Otherwise, no acute abnormality seen within the abdomen or pelvis. 2. Swollen, heterogeneous right hip musculature, primarily gluteus medius and minimus, rectus femoris and vastus lateralis and the adductor muscles. This is nonspecific but suggests a subacute hematoma of these structures. Nothing organized/measurable. 3. Chronic L5 pars defects with grade 2 L5/S1 spondylolisthesis. Glenroy Sheffield MD Objective Remarks GENERAL: 30-year-old female. Not in distress. Central line right internal jugular. CARDIOVASCULAR: RRR Faint systolic 2/6 murmur RESPIRATORY: clear to auscultation w no wheezing this morning. GASTROINTESTINAL: Abdomen soft, non-tender, nondistended. Hypoactive bowel sounds. Abrasions. MUSCULOSKELETAL: Right thigh currently with wound VAC lateral aspect. Right hip tender with restricted mobility. Positive peripheral edema right greater than left lower extremity, 2+. NEUROLOGICAL: Awake and alert to person, place and year. Motor grossly within normal limits. Procedures Status post right leg washout, senna graft placement and partial wound closure on 08/06. A/P Problem List: (1) Compartment syndrome of right lower extremity ICD Code: T79.A21A Status: Acute (2) Rhabdomyolysis ICD Code: M62.82 Status: Resolved (3) Severe sepsis ICD Code: A41.9 Status: Resolved (4) Altered mental status ICD Code: R41.82 Status: Resolved (5) Drug overdose ICD Code: T50.901A Status: Resolved (6) Elevated troponin ICD Code: R79.89 Status: Resolved (7) Severe metabolic acidosis Status: Resolved (8) Lactic acidosis ICD Code: E87.2 Status: Resolved (9) Transaminitis ICD Code: R74.0 Status: Acute (10) Hypocalcemia ICD Code: E83.51 Status: Acute (11) Hyperkalemia ICD Code: E87.5 Status: Acute (12) ST elevation ICD Code: R94.31 Status: Acute (13) Acute kidney failure ICD Code: N17.9 Status: Acute (14) Leukocytosis ICD Code: D72.829 Status: Resolved (15) Small right middle lobe consolidation Status: Acute (16) Hip hematoma, right ICD Code: S70.01XA Status: Acute Assessment and Plan Right medial/lateral thigh compartment syndrome L5/S1 spondylolisthesis Status post day [address] Turner - wound VAC placement. Had wound vac changed 08/16/16 ID: Severe sepsis Escherichia coli UTI -Source likely secondary to right thigh compartment syndrome -Infectious disease following. Small consolidation in the right middle lobe unlikely to be source of severe sepsis, Levaquin and Zosyn stopped for now. Rule out line infection. Infectious disease following. Previous urine culture grew Escherichia coli. /Renal: Acute kidney failure on HD, nephrology following Acute rhabdomyolysis - on normal saline down to 70cc an hour -07/26 renal ultrasound revealed fluid of at poles of bilateral kidneys otherwise negative - Strict intake output. - Urine electrolytes intrinsic renal process/urine eosinophils negative. - Nephrology following. Still making some urine but noted to be decreased by RN. Getting HD - Noted decreased C3 of 19/C4 5, monitor creatinine. - Nephrology following Macrocytic anemia Thrombocytopenia 08/07 Acute post op anemia/ acute blood loss anemia. H/H stable fo far, monitor. -Monitor CBC, CMP, - Transfused total 4 units PRBCs, 2 pack platelets, 2 FFP 2 cryo-since admission - Hb 7.3 today. monitor closely. transfuse if <7.0 - Status post transfusion, monitor.. So far H/H stable. Severe Protein calorie malnutrition: Muscle waist. Alb 1.5 . Add ensure to diet. Also on albumin with HD Altered mental status. Resolved. Polysubstance abuse with drug overdose including cocaine/heroin. History of THC use. EtOH use. Counselled. Right upper extremity numbness. Resolving. S/P Liver biopsy by IR 08/13/16 -Watch for alcohol and drug withdrawal, Use PRN Ativan for anxiety and oxycodone /morphine as needed for pain. -CT of the head 07/25 revealed no acute intracranial findings. Continue aspirin , thiamine and multivitamins. -MRI brain 07/29 revealed T2 signal abnormality globus pallidus and mesial temporal lobe bilaterally. - EEG 07/30 revealed slowing system with moderate diffuse encephalopathy. No seizure activity. - Psychiatry clear to [place] act 07/29 - neurology evaluated the patient and feels that MRI results are from drug overdose. GI getting ophthalmology consult for eval w slit lamp for Bre- Sylvia rings - 08/05 ophtalmology exam negative for Bre-Sylvia rings. Mild Respiratory insufficiency secondary to pneumonia/metabolic acidosis Small consolidation right middle lobe Right basilar pulmonary nodule 3 mm - follow-up CT chest 3 months recommended Ongoing tobaccoism -now on RA, has cough but nonproductive, continue incentive spirometry, duo nebs. -CT chest 07/25 revealed right middle lobe infiltrate along with 3 mm right basilar pulmonary nodule. -Chest x-ray 07/26 reveals no significant cardio pulmonary findings Elevated troponin Severe lactic acidosis - resolved ST elevation in V1 and V2 Sinus tachycardia, Started metoprolol. HR improved. -Continue antibiotics,2d echo revealed EF 60-65%. NRWMA. Lactic acid has cleared on Norvasc 10 mg daily for hypertension, 0.1 mg po BID, with as needed hydralazine and Nitropaste, d/c labetalol BP stable. Continue Norvasc, clonidine. PRN hydralazine and nitropaste. with tachycardia, will repeat ekg, add metoprolol. GI: Transaminitis Rhabdomyolysis Hyperammonia -Transaminitis most likely secondary to shock/rhabdo -CT of the abdomen and pelvis shows fatty liver/21 mm right ovarian cyst -Negative hepatitis panel - Xifaxan 550 twice a day/lactulose 30 3 times a day for elevated ammonia. - Noted low ceruloplasmin. 9. 24 hr Urine copper 24, for liver biopsy on Tuesday - S/P liver biopsy 08/13/16. 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 Hold subcutaneous heparin given drop in hemoglobin. Discussed with the patient, nurse Problem Qualifiers (1) Drug overdose: Qualified Code: T50.904A - Drug overdose, undetermined intent, initial encounter (2) Acute kidney failure: Qualified Code: N17.9 - Acute renal failure, unspecified acute renal failure type (3) Leukocytosis: Qualified Code: D72.829 - Leukocytosis, unspecified type Lashanda Lovelace MD Aug 17, 2016 20:30
[2016-08-18] VITALS (7 sets, daily range): BP systolic 98–120; BP diastolic 63–80; PULSE 74–86; RESP 16–20; TEMP 98.7–99.3; O2SAT 96–99
[2016-08-18] MEDS: CHLORHEXIDINE GLUCONATE 2 % 1 PACK (2 CLOTHS) TOP SCH ×2 (04:00→21:00)
[2016-08-18 05:54] LABS: HEMATOCRIT 21.2 % (35.0-46.0); MEAN CELL VOLUME 89.5 FL (80.0-100.0); MEAN CORPUSCULAR HEMOGLOBIN 31.5 PG (27.0-34.0); MEAN CORPUSCULAR HGB CONC 35.2 % (32.0-36.0); PLATELET COUNT 173 TH/MM3 (150-450); RED BLOOD COUNT 2.37 MIL/MM3 (4.00-5.30); RED CELL DISTRIBUTION WIDTH 15.6 % (11.6-17.2); REVIEW FLAG FINAL; WHITE BLOOD COUNT 5.1 TH/MM3 (4.0-11.0)
[2016-08-18 06:15] LABS: BICARBONATE 24.5 MEQ/L (21.0-32.0); POTASSIUM 3.6 MEQ/L (3.5-5.1)
[2016-08-18] MEDS: MULTIVITAMIN TAB PO SCH (09:00)
[2016-08-18] MEDS: THIAMINE HCL 100 MG TAB PO SCH (09:00)
[2016-08-18] MEDS: FOLIC ACID 1 MG TAB PO SCH (09:24)
[2016-08-18] MEDS: cloNIDine HCL 0.1 MG TAB PO SCH ×2 (09:24→21:00)
[2016-08-18] MEDS: RIFAXIMIN 550 MG TAB PO SCH ×2 (09:24→21:00)
[2016-08-18] MEDS: LACTULOSE SYRUP 20 GM/30 ML CUP PO SCH ×2 (09:25→21:00)
[2016-08-18] MEDS: FAMOTIDINE 20 MG TAB PO SCH ×2 (09:25→21:00)
[2016-08-18] MEDS: ASPIRIN EC 325 MG TABEC PO SCH (09:25)
[2016-08-18] MEDS: SODIUM CHLORIDE 0.9% FLUSH 5 ML FLUSH IV FLUSH SCH ×2 (09:28→21:00)
--- NOTE | 2016-08-18 11:26 | HHI.PR ---
Subjective Remarks In bed, walked to the bedside comode with the walker, says she feels tired now and sleepy. Says she has sob when she is walking and gets tired easily. Objective Vitals Vital Signs Date Time Temp Pulse Resp B/P Pulse Ox O2 Delivery O2 Flow Rate FiO2 08/18/16 08:00 99.0 84 20 114/80 96 08/18/16 04:00 98.7 84 16 114/72 96 08/18/16 02:42 16 08/18/16 00:00 98.7 75 16 102/63 97 08/17/16 20:07 75 08/17/16 20:00 98.1 80 16 105/69 96 08/17/16 16:00 98.5 75 19 109/70 95 08/17/16 11:36 98.0 77 19 116/76 96 I/O 08/17/16 08/17/16 08/17/16 08/18/16 08/18/16 08/18/16 06:59 14:59 22:59 06:59 14:59 22:59 Intake Total 560 ml 0 ml 480 ml Output Total 675 ml 780 ml 80 ml Balance -115 ml -780 ml 400 ml Intake Oral 560 ml 0 ml 480 ml Output Urine Total 675 ml 550 ml Drainage Total 230 ml 80 ml # Voids 2 # Bowel Movements 1 0 0 Result Diagram: 08/18/16 0445 08/18/16 0445 Imaging Last Impressions Liver Biopsy CT 08/13/16 0000 Signed Impressions: Service Date/Time: Saturday, August 13, 2016 12:42 - CONCLUSION: Uncomplicated CT guided biopsy. Raymundo Agarwal MD Chest X-Ray 08/09/16 0000 Signed Impressions: Service Date/Time: Tuesday, August 09, 2016 19:30 - CONCLUSION: 1. Interval placement of double-lumen central venous line. 2. Hazy opacity at the lung bases with mild blunting of the left costophrenic angle which could indicate a small effusion. Nael Zuñiga MD Catheter Placement X-Ray 07/30/16 0000 Signed Impressions: Service Date/Time: Saturday, July 30, 2016 14:14 - CONCLUSION: Uncomplicated line placement as above. Judson Cee MD Brain MRI 07/29/16 0000 Signed Impressions: Service Date/Time: July 13:34 - CONCLUSION: 1. Abnormal examination of the brain demonstrating areas of T2 signal and abnormal diffusion signal involving the globus pallidus bilaterally and the mesial temporal lobes bilaterally. Primary considerations would include carbon monoxide poisoning versus other partial anoxic brain injury. Please see above discussion. Aamir Narayanan MD Abdomen Ultrasound 07/26/16 0000 Signed Impressions: Service Date/Time: Tuesday, July 26, 2016 10:21 - CONCLUSION: 1. Small amount of free fluid adjacent to the lower poles of both kidneys. 2. Obscuration of the head of the pancreas, distal IVC and aorta due to overlying bowel gas. 3. Otherwise negative. Judson Cee MD Lower Extremity CT 07/25/16 0000 Signed Impressions: Service Date/Time: Monday, July 25, 2016 18:54 - CONCLUSION: Extensive nonspecific myositis of the right thigh, also involves gluteus medius and minimus proximally and at least medial gastrocnemius below the knee. Infectious/inflammatory and ischemic etiologies would be in the differential. No gas bubbles are seen to substantiate necrotizing fasciitis. No organized/drainable abscess. Glenroy Sheffield MD Hip and Pelvis X-Ray 07/25/16 Signed Impressions: Service Date/Time: Monday, July 25, 2016 16:52 - CONCLUSION: Intact pelvis and right hip. Nonspecific surrounding soft tissue swelling Glenroy Sheffield MD Head CT 07/25/16 0000 Signed Impressions: Service Date/Time: Monday, July 25, 2016 14:38 - CONCLUSION: Negative noncontrast head CT. Glenroy Sheffield MD Chest CT 07/25/16 0000 Signed Impressions: Service Date/Time: Monday, July 25, 2016 16:37 - CONCLUSION: Focal dense consolidation right middle lobe, nonspecific but most likely infectious or inflammatory. Also a 3 mm right basilar pulmonary nodule Followup noncontrast chest CT in a few months recommended to confirm resolution/stability. Glenroy Sheffield MD Abdomen/Pelvis CT 07/25/16 0000 Signed Impressions: Service Date/Time: Monday, July 25, 2016 16:37 - CONCLUSION: 1. Fatty liver and 21 mm right ovarian cyst. Otherwise, no acute abnormality seen within the abdomen or pelvis. 2. Swollen, heterogeneous right hip musculature, primarily gluteus medius and minimus, rectus femoris and vastus lateralis and the adductor muscles. This is nonspecific but suggests a subacute hematoma of these structures. Nothing organized/measurable. 3. Chronic L5 pars defects with grade 2 L5/S1 spondylolisthesis. Glenroy Sheffield MD Objective Remarks GENERAL: 30-year-old female. Not in distress. Central line right internal jugular. CARDIOVASCULAR: RRR Faint systolic 2/6 murmur RESPIRATORY: clear to auscultation w no wheezing this morning. GASTROINTESTINAL: Abdomen soft, non-tender, nondistended. Hypoactive bowel sounds. Abrasions. MUSCULOSKELETAL: Right thigh currently with wound VAC lateral aspect. Right hip tender with restricted mobility. Positive peripheral edema right greater than left lower extremity, 2+. NEUROLOGICAL: Awake and alert to person, place and year. Motor grossly within normal limits. Procedures Status post right leg washout, senna graft placement and partial wound closure on 08/06. A/P Problem List: (1) Compartment syndrome of right lower extremity ICD Code: T79.A21A Status: Acute (2) Rhabdomyolysis ICD Code: M62.82 Status: Resolved (3) Severe sepsis ICD Code: A41.9 Status: Resolved (4) Altered mental status ICD Code: R41.82 Status: Resolved (5) Drug overdose ICD Code: T50.901A Status: Resolved (6) Elevated troponin ICD Code: R79.89 Status: Resolved (7) Severe metabolic acidosis Status: Resolved (8) Lactic acidosis ICD Code: E87.2 Status: Resolved (9) Transaminitis ICD Code: R74.0 Status: Acute (10) Hypocalcemia ICD Code: E83.51 Status: Acute (11) Hyperkalemia ICD Code: E87.5 Status: Acute (12) ST elevation ICD Code: R94.31 Status: Acute (13) Acute kidney failure ICD Code: N17.9 Status: Acute (14) Leukocytosis ICD Code: D72.829 Status: Resolved (15) Small right middle lobe consolidation Status: Acute (16) Hip hematoma, right ICD Code: S70.01XA Status: Acute Assessment and Plan Right medial/lateral thigh compartment syndrome L5/S1 spondylolisthesis Status post day [address] Turner - wound VAC placement. Had wound vac changed 08/16/16 ID: Severe sepsis Escherichia coli UTI -Source likely secondary to right thigh compartment syndrome -Infectious disease following. Small consolidation in the right middle lobe unlikely to be source of severe sepsis, Levaquin and Zosyn stopped for now. Rule out line infection. Infectious disease following. Previous urine culture grew Escherichia coli. /Renal: Acute kidney failure on HD, nephrology following Acute rhabdomyolysis - on normal saline down to 70cc an hour -07/26 renal ultrasound revealed fluid of at poles of bilateral kidneys otherwise negative - Strict intake output. - Urine electrolytes intrinsic renal process/urine eosinophils negative. - Nephrology following. Still making some urine but noted to be decreased by RN. Getting HD - Noted decreased C3 of 19/C4 5, monitor creatinine. - Nephrology following Macrocytic anemia Thrombocytopenia 08/07 Acute post op anemia/ acute blood loss anemia. H/H stable fo far, monitor. -Monitor CBC, CMP, - Transfused total 4 units PRBCs, 2 pack platelets, 2 FFP 2 cryo-since admission - Hb 7.3 today. monitor closely. transfuse if <7.0 - Status post transfusion, monitor.. So far H/H stable. Severe Protein calorie malnutrition: Muscle waist. Alb 1.5 . Add ensure to diet. Also on albumin with HD Altered mental status. Resolved. Polysubstance abuse with drug overdose including cocaine/heroin. History of THC use. EtOH use. Counselled. Right upper extremity numbness. Resolving. S/P Liver biopsy by IR 08/13/16 -Watch for alcohol and drug withdrawal, Use PRN Ativan for anxiety and oxycodone /morphine as needed for pain. -CT of the head 07/25 revealed no acute intracranial findings. Continue aspirin , thiamine and multivitamins. -MRI brain 07/29 revealed T2 signal abnormality globus pallidus and mesial temporal lobe bilaterally. - EEG 07/30 revealed slowing system with moderate diffuse encephalopathy. No seizure activity. - Psychiatry clear to [place] act 07/29 - neurology evaluated the patient and feels that MRI results are from drug overdose. GI getting ophthalmology consult for eval w slit lamp for Bre- Sylvia rings - 08/05 ophtalmology exam negative for Bre-Sylvia rings. Mild Respiratory insufficiency secondary to pneumonia/metabolic acidosis Small consolidation right middle lobe Right basilar pulmonary nodule 3 mm - follow-up CT chest 3 months recommended Ongoing tobaccoism -now on RA, has cough but nonproductive, continue incentive spirometry, duo nebs. -CT chest 07/25 revealed right middle lobe infiltrate along with 3 mm right basilar pulmonary nodule. -Chest x-ray 07/26 reveals no significant cardio pulmonary findings Elevated troponin Severe lactic acidosis - resolved ST elevation in V1 and V2 Sinus tachycardia, Started metoprolol. HR improved. -Continue antibiotics,2d echo revealed EF 60-65%. NRWMA. Lactic acid has cleared on Norvasc 10 mg daily for hypertension, 0.1 mg po BID, with as needed hydralazine and Nitropaste, d/c labetalol BP stable. Continue Norvasc, clonidine. PRN hydralazine and nitropaste. with tachycardia, will repeat ekg, add metoprolol. GI: Transaminitis Rhabdomyolysis Hyperammonia -Transaminitis most likely secondary to shock/rhabdo -CT of the abdomen and pelvis shows fatty liver/21 mm right ovarian cyst -Negative hepatitis panel - Xifaxan 550 twice a day/lactulose 30 3 times a day for elevated ammonia. - Noted low ceruloplasmin. 9. 24 hr Urine copper 24, for liver biopsy on Tuesday - S/P liver biopsy 08/13/16. ANESTHESIOLOGY MEDICAL DOCTOR: Right ovarian cyst Beta hCG 1 PROPH: -Left lower extremity SCDs. Hold subcutaneous heparin given drop in hemoglobin. Discussed with the patient, nurse Problem Qualifiers (1) Drug overdose: Qualified Code: T50.904A - Drug overdose, undetermined intent, initial encounter (2) Acute kidney failure: Qualified Code: N17.9 - Acute renal failure, unspecified acute renal failure type (3) Leukocytosis: Qualified Code: D72.829 - Leukocytosis, unspecified type Lashanda Lovelace MD Aug 18, 2016 11:26
--- NOTE | 2016-08-18 12:44 | MP ---
cc: SAW JOYA MD DATE OF SURGERY 08/16/2016 PREOPERATIVE DIAGNOSIS Right leg rhabdomyolysis status post fasciotomy. POSTOPERATIVE DIAGNOSIS Right leg rhabdomyolysis status post fasciotomy. OPERATIVE PROCEDURE Washout of the fasciotomy site with reattachment of acellular matrix and wound Vac. SURGEON Saw Joya MD ANESTHESIA General ESTIMATED BLOOD LOSS 10 cc PROCEDURE The patient prepped and draped in the usual fashion. The old wound Vac is removed and the area prepped. The acellular matrix is adherent lightly to the underlying tissue and there is fairly good granulation underneath. This is still to early to remove the acellular matrix completely, therefore, acellular matrix is folded back, then the area is irrigated with copious amounts of saline lavage. The area is now patted dry and then the acellular matrix powder is applied and then acellular matrix sheaths are repositioned and attached with 3-0 Vicryl's, wound Vac reapplied. The patient tolerated the procedure well. Saw ELDER/JAGDEEPL /12:22 PM /12:39 PM
--- NOTE | 2016-08-18 12:56 | PD.CARD.PN ---
Subjective Subjective Remarks ambulating with walker c/o [place] Objective Vital Signs / I&O Vital Signs Date Time Temp Pulse Resp B/P Pulse Ox O2 Delivery O2 Flow Rate FiO2 08/18/16 12:00 98.7 78 20 120/78 98 08/18/16 08:00 99.0 84 20 114/80 96 08/18/16 04:00 98.7 84 16 114/72 96 08/18/16 02:42 16 08/18/16 00:00 98.7 75 16 102/63 97 08/17/16 20:07 75 08/17/16 20:00 98.1 80 16 105/69 96 08/17/16 16:00 98.5 75 19 109/70 95 I/O 08/17/16 08/17/16 08/17/16 08/18/16 08/18/16 08/18/16 06:59 14:59 22:59 06:59 14:59 22:59 Intake Total 560 ml 0 ml 480 ml Output Total 675 ml 780 ml 80 ml Balance -115 ml -780 ml 400 ml Intake Oral 560 ml 0 ml 480 ml Output Urine Total 675 ml 550 ml Drainage Total 230 ml 80 ml # Voids 2 # Bowel Movements 1 0 0 Physical Exam GENERAL: SKIN: Warm and dry. HEAD: Normocephalic. EYES: No scleral icterus. No injection or drainage. NECK: Supple, trachea midline. No JVD or lymphadenopathy. CARDIOVASCULAR: Regular rate and rhythm without murmurs, gallops, or rubs. RESPIRATORY: Breath sounds equal bilaterally. No accessory muscle use. GASTROINTESTINAL: Abdomen soft, non-tender, nondistended. MUSCULOSKELETAL: No cyanosis, or edema. BACK: Nontender without obvious deformity. No CVA tenderness. GENERAL: SKIN: Warm and dry. HEAD: Normocephalic. EYES: No scleral icterus. No injection or drainage. NECK: Supple, trachea midline. No JVD or lymphadenopathy. CARDIOVASCULAR: Regular rate and rhythm without murmurs, gallops, or rubs. RESPIRATORY: Breath sounds equal bilaterally. No accessory muscle use. GASTROINTESTINAL: Abdomen soft, non-tender, nondistended. MUSCULOSKELETAL: No cyanosis, or edema. BACK: Nontender without obvious deformity. No CVA tenderness. Laboratory Laboratory Tests Test 08/18/16 04:45 White Blood Count 5.1 TH/MM3 Red Blood Count 2.37 MIL/MM3 Hemoglobin 7.5 GM/DL Hematocrit 21.2 % Mean Corpuscular Volume 89.5 FL Mean Corpuscular Hemoglobin 31.5 PG Mean Corpuscular Hemoglobin 35.2 % Concent Red Cell Distribution Width 15.6 % Platelet Count 173 TH/MM3 Mean Platelet Volume 7.9 FL Sodium Level 142 MEQ/L Potassium Level 3.6 MEQ/L Chloride Level 109 MEQ/L Carbon Dioxide Level 24.5 MEQ/L Anion Gap 9 MEQ/L Blood Urea Nitrogen 16 MG/DL Creatinine 2.97 MG/DL Estimat Glomerular Filtration 19 ML/MIN Rate Random Glucose 84 MG/DL Calcium Level 8.1 MG/DL Assessment and Plan Problem List: (1) Drug overdose (2) Hypocalcemia (3) SIRS (systemic inflammatory response syndrome) (4) Renal failure (5) Hyperkalemia (6) Lactic acidosis (7) Altered mental status (8) Severe sepsis (9) Elevated troponin (10) Severe metabolic acidosis (11) Acute kidney failure (12) Leukocytosis (13) Hip hematoma, right (14) Small right middle lobe consolidation (15) Rhabdomyolysis (16) Compartment syndrome of right lower extremity Assessment and Plan 1.) Elevated troponin - suspect d/t global hypoperfusion d/t hypotension form sepsis, ef=65%, patient is assymptomatic, trop < 1, on aspirin 325 mg qd, d/t arf lhc/pci would be high risk for deterioration in renal function and potential need for temporary or permanent dialysis 2.) POD 16 - hemodynamically stable 3.) ARF - d/t rhabdomyolysis from compartment syndrome, dialysis per dr Fletcher, uo @ 550 last 24 hours, creatinine improving 4.) HTN - started on amlodipine 10 mg qd 5.) RLE pain - slight improvement 6.) Anemia - improved s/p transfusion Problem Qualifiers (1) Drug overdose: Qualified Code: T50.904A - Drug overdose, undetermined intent, initial encounter (2) Acute kidney failure: Qualified Code: N17.9 - Acute renal failure, unspecified acute renal failure type (3) Leukocytosis: Qualified Code: D72.829 - Leukocytosis, unspecified type Luis Eduardo Carter MD Aug 18, 2016 12:56
[2016-08-18] MEDS: FERROUS SULFATE 325 MG (65 MG ELEMENTAL IRON) TAB PO SCH (16:12)
--- NOTE | 2016-08-18 16:26 | PD.CAR.PN ---
CVT Progress Note Subjective/Hospital Course: Patient with clinical findings of medial and lateral thigh compartment syndrome For OR now Thanks Delaney 07/26/16 Patient underwent yesterday and medial and lateral fasciotomy of the thigh debridement Today she underwent washout the both, closure of the medial fasciotomy skin and wound VAC placement on lateral fasciotomy The lateral fasciotomy will need wound VAC for but 2 weeks and then this can be covered with the partial-thickness skin graft by plastic surgery 07/27/16 Status post the thigh compartment syndrome with medial and lateral fasciotomy of the right leg Yesterday patient went for washout closure and drainage of the medial fasciotomy site while the lateral fasciotomy from hip to the knee remains open Wound VAC in place Hemoglobin now stable and there is no other source of bleeding Patient was in active DIC and fibrinolysis for the first 48 hours and this is now abating Agree with blood and blood products administration Platelets remain stable and unless these drop on the 30,000 would probably not transfuse Patient can be out of bed and should be bearing weight on this leg as much as possible 07/28/16 CHAZ drainage from the medial closure of the thighs decreased but I will leave it in till the swelling decreases and the third space abates for otherwise patient will develop a seroma in this area Lateral incision now covered with a wound VAC is draining minimally Hemoglobin remains stable Plan Starting tomorrow will have wound care assist with changing wound VAC at the bedside and I will consult plastic surgery for grafting of the wound in the near future 07/29/16 Medial compartment is closed and drainage is minimal so we will DC CHAZ Lateral thigh compartment is open clean and we will start wound VAC changes today Eventually patient will go to the OR for another washout and perhaps little more closure of this area but for the most part she will need a skin grafting of this area 07/30/2016 Medial incision is clean and dry Lateral incision wound VAC has been changed yesterday and he looks nice and clean and granulating nicely Patient will need several wound VAC exchange to before graft can be placed in this area Continue care Patient can transfer to the floor from my point 08/05/16 The patient will undergo tomorrow placement of acellular matrix xenograft in the operating room Wound VAC will then remain on it for about 10 days and then after that patient can be grafted This procedure should take about 30 minutes and then patient will be able to go to rehabilitation or even [facility] for about 10 days and then return to us for grafting 08/07/16 Patient underwent yesterday washout of her fasciotomy site of the right thigh with placement of a acellular xenograft to improve granulation and the allow for eventual partial-thickness skin graft placement The drainage from the wound VAC at this point will be copious considering the inflammatory reaction that the xenograft induces so this is expected. In addition patient dropped hemoglobin and will be given 2 units of blood The wound VAC will stay on for about 9 days at this point so patient can either stay in our hospital or be transferred possibly to [facility] till the time comes to remove the wound VAC for it will have to be done in the operating room At that time area will be ready for grafting or he may need another 10 days of xenograft is a granulation is not sufficient I will consult Dr. Juares to see the patient for skin grafting when the time comes 08/10/16 Wound VAC is in position and drainage has now significantly decreased Patient is excellent distal pulses and leg is warm Patient could move to [facility] from my point till the time comes to remove the wound VAC is another week Nothing to add to care let this time 08/12/16 Patient doing well at this time Drainage from the wound VAC is minimal Patient will be taken back to the operating room on Tuesday for evaluation and washout with possible grafting Patient may need another 9 or 10 days of the acellular matrix depending on the granulation tissue present next week or may be graftable next week We'll consult Dr. Juares for the grafting 08/17/16 Patient underwent yesterday washout reapplication off acellular matrix with placement of the wound VAC Incisions are clean and dry, stitches have been removed proximal and distal to the fasciotomy defect and fasciotomies covered with the above mentioned wound VAC Serosanguineous drainage By next week patient will be ready for skin grafting and Dr. Juares will be consulted 08/18/[address] with serosanguineous drainage Patient states she has no pain in this leg anymore Excellent distal flow Grafting next week Objective: Vital Signs Date Time Temp Pulse Resp B/P Pulse Ox O2 Delivery O2 Flow Rate FiO2 08/18/16 12:00 98.7 78 20 120/78 98 08/18/16 08:00 99.0 84 20 114/80 96 08/18/16 04:00 98.7 84 16 114/72 96 08/18/16 02:42 16 08/18/16 00:00 98.7 75 16 102/63 97 08/17/16 20:07 75 08/17/16 20:00 98.1 80 16 105/69 96 Labs: Laboratory Tests Test 08/18/16 04:45 White Blood Count 5.1 TH/MM3 (4.0-11.0) Red Blood Count 2.37 MIL/MM3 (4.00-5.30) Hemoglobin 7.5 GM/DL (11.6-15.3) Hematocrit 21.2 % (35.0-46.0) Mean Corpuscular Volume 89.5 FL (80.0-100.0) Mean Corpuscular Hemoglobin 31.5 PG (27.0-34.0) Mean Corpuscular Hemoglobin 35.2 % Concent (32.0-36.0) Red Cell Distribution Width 15.6 % (11.6-17.2) Platelet Count 173 TH/MM3 (150-450) Mean Platelet Volume 7.9 FL (7.0-11.0) Sodium Level 142 MEQ/L (136-145) Potassium Level 3.6 MEQ/L (3.5-5.1) Chloride Level 109 MEQ/L (98-107) Carbon Dioxide Level 24.5 MEQ/L (21.0-32.0) Anion Gap 9 MEQ/L (5-15) Blood Urea Nitrogen 16 MG/DL (7-18) Creatinine 2.97 MG/DL (0.50-1.00) Estimat Glomerular Filtration 19 ML/MIN (>89) Rate Random Glucose 84 MG/DL (74-106) Calcium Level 8.1 MG/DL (8.5-10.1) Result Diagram: 08/18/16 0445 08/18/16 0445 (1) Drug overdose (2) Hypocalcemia (3) SIRS (systemic inflammatory response syndrome) (4) Renal failure (5) Hyperkalemia (6) Lactic acidosis (7) Altered mental status (8) Severe sepsis (9) Elevated troponin (10) Severe metabolic acidosis (11) Acute kidney failure (12) Leukocytosis (13) Hip hematoma, right (14) Small right middle lobe consolidation (15) Rhabdomyolysis (16) Compartment syndrome of right lower extremity Problem Qualifiers (1) Drug overdose: Qualified Code: T50.904A - Drug overdose, undetermined intent, initial encounter (2) Acute kidney failure: Qualified Code: N17.9 - Acute renal failure, unspecified acute renal failure type (3) Leukocytosis: Qualified Code: D72.829 - Leukocytosis, unspecified type Saw Turner MD Aug 18, 2016 16:26
--- NOTE | 2016-08-18 17:45 | HHI.NPPN ---
Subjective History of Present Illness 30 year old female with drug OD, Rt thigh compartment syndrome s/p Fasciotomy, Rhabdomyolysis, ARF Additional Remarks Patient is alert, no SOB, has mild pain at site of Catheter. Review of Systems General Constitutional: Fatigue Musculoskeletal MS: Pain/Stiffness Objective Data Data 08/17/16 08/18/16 19:00 07:00 Intake Total 0 ml 480 ml Output Total 780 ml 80 ml Balance -780 ml 400 ml Intake Oral 0 ml 480 ml Output Urine Total 550 ml Drainage Total 230 ml 80 ml # Voids 2 # Bowel Movements 0 0 Vital Signs Date Time Temp Pulse Resp B/P Pulse Ox O2 Delivery O2 Flow Rate FiO2 08/18/16 12:00 98.7 78 20 120/78 98 08/18/16 08:00 99.0 84 20 114/80 96 08/18/16 04:00 98.7 84 16 114/72 96 08/18/16 02:42 16 08/18/16 00:00 98.7 75 16 102/63 97 08/17/16 20:07 75 08/17/16 20:00 98.1 80 16 105/69 96 -: 08/18/16 0445 08/18/16 0445 Physical Exam General Appearance: No Acute Distress, Comfortable Neck Neck Exam: Neck Supple Pulmonary Resp Exam: Clear Bilaterally, Breath Sounds Equal Cardiology CV Exam: Regular, Normal Sinus Rhythm Gastrointestinal/Abdomen GI Exam: Soft, Non-Tender, Bowel Sounds Present Extremeties Extremities Exam: Trace Edema Neurologic Neuro Exam: Alert, Awake Assessment/Plan Problem List: (1) Acute kidney failure Plan: This is likely due to rhabdomyolysis and acute tubular necrosis Good UOP seen - 1.3 L UOP/ 24 hours ARF resolving Cr 3.7 K replaced stop hemodialysis Dr. Romero to follow till weekend (2) Compartment syndrome of right lower extremity Plan: Status post surgery (3) UTI (urinary tract infection) Plan: treated (4) Severe sepsis Plan: Status post fasciotomy right leg S/P liver biopsy Problem Qualifiers (1) Acute kidney failure: Qualified Code: N17.9 - Acute renal failure, unspecified acute renal failure type Last Romero MD Aug 18, 2016 17:45
[2016-08-19] VITALS (7 sets, daily range): BP systolic 103–107; BP diastolic 64–79; PULSE 69–93; RESP 18–20; TEMP 97.4–99.3; O2SAT 95–97
[2016-08-19] MEDS: RIFAXIMIN 550 MG TAB PO SCH ×2 (08:52→19:36)
[2016-08-19] MEDS: FOLIC ACID 1 MG TAB PO SCH (08:52)
[2016-08-19] MEDS: SODIUM CHLORIDE 0.9% FLUSH 5 ML FLUSH IV FLUSH SCH ×2 (08:53→19:39)
[2016-08-19] MEDS: FAMOTIDINE 20 MG TAB PO SCH ×2 (08:53→19:36)
[2016-08-19] MEDS: cloNIDine HCL 0.1 MG TAB PO SCH ×2 (08:53→19:36)
[2016-08-19] MEDS: ASPIRIN EC 325 MG TABEC PO SCH (08:53)
[2016-08-19] MEDS: LACTULOSE SYRUP 20 GM/30 ML CUP PO SCH ×2 (08:53→19:36)
[2016-08-19] MEDS: THIAMINE HCL 100 MG TAB PO SCH (08:53)
[2016-08-19] MEDS: MULTIVITAMIN TAB PO SCH (08:53)
[2016-08-19] MEDS: FERROUS SULFATE 325 MG (65 MG ELEMENTAL IRON) TAB PO SCH ×2 (11:06→17:24)
--- NOTE | 2016-08-19 14:11 | HHI.PR ---
Subjective Remarks no major overnight events no further pain in leg afebrile denies diarrhea denies nausea/vomiting vital signs stable Objective Vitals Vital Signs Date Time Temp Pulse Resp B/P Pulse Ox O2 Delivery O2 Flow Rate FiO2 08/19/16 12:00 97.9 69 18 103/68 95 08/19/16 08:00 98.5 75 18 107/79 97 08/19/16 04:00 97.6 75 20 106/76 97 08/19/16 00:00 98.1 71 20 107/64 97 08/18/16 20:00 99.3 77 20 120/78 96 08/18/16 19:58 74 08/18/16 16:00 99.0 86 20 98/66 99 I/O 08/18/16 08/18/16 08/18/16 08/19/16 08/19/16 08/19/16 07:00 15:00 23:00 07:00 15:00 23:00 Intake Total 240 ml 1200 ml 240 ml 240 ml Output Total 80 ml 350 ml 0 ml 100 ml Balance 160 ml 850 ml 240 ml 140 ml Intake Oral 240 ml 1200 ml 240 ml 240 ml Output Urine Total 200 ml Drainage Total 80 ml 150 ml 0 ml 100 ml # Voids 1 2 2 # Bowel Movements 0 3 Result Diagram: 08/18/16 0445 08/18/16 0445 Imaging Last Impressions Liver Biopsy CT 08/13/16 0000 Signed Impressions: Service Date/Time: Saturday, August 13, 2016 12:42 - CONCLUSION: Uncomplicated CT guided biopsy. Raymundo Agarwal MD Chest X-Ray 08/09/16 0000 Signed Impressions: Service Date/Time: Tuesday, August 09, 2016 19:30 - CONCLUSION: 1. Interval placement of double-lumen central venous line. 2. Hazy opacity at the lung bases with mild blunting of the left costophrenic angle which could indicate a small effusion. Nael Zuñiga MD Catheter Placement X-Ray 07/30/16 0000 Signed Impressions: Service Date/Time: Saturday, July 30, 2016 14:14 - CONCLUSION: Uncomplicated line placement as above. Judson Cee MD Brain MRI 07/29/16 0000 Signed Impressions: Service Date/Time: July 13:34 - CONCLUSION: 1. Abnormal examination of the brain demonstrating areas of T2 signal and abnormal diffusion signal involving the globus pallidus bilaterally and the mesial temporal lobes bilaterally. Primary considerations would include carbon monoxide poisoning versus other partial anoxic brain injury. Please see above discussion. Aamir Narayanan MD Abdomen Ultrasound 07/26/16 Signed Impressions: Service Date/Time: Tuesday, July 26, 2016 10:21 - CONCLUSION: 1. Small amount of free fluid adjacent to the lower poles of both kidneys. 2. Obscuration of the head of the pancreas, distal IVC and aorta due to overlying bowel gas. 3. Otherwise negative. Judson Cee MD Lower Extremity CT 07/25/16 Signed Impressions: Service Date/Time: Monday, July 25, 2016 18:54 - CONCLUSION: Extensive nonspecific myositis of the right thigh, also involves gluteus medius and minimus proximally and at least medial gastrocnemius below the knee. Infectious/inflammatory and ischemic etiologies would be in the differential. No gas bubbles are seen to substantiate necrotizing fasciitis. No organized/drainable abscess. Glenroy Sheffield MD Hip and Pelvis X-Ray 07/25/16 Signed Impressions: Service Date/Time: Monday, July 25, 2016 16:52 - CONCLUSION: Intact pelvis and right hip. Nonspecific surrounding soft tissue swelling Glenroy Sheffield MD Head CT 07/25/16 Signed Impressions: Service Date/Time: Monday, July 25, 2016 14:38 - CONCLUSION: Negative noncontrast head CT. Glenroy Sheffield MD Chest CT 07/25/16 Signed Impressions: Service Date/Time: Monday, July 25, 2016 16:37 - CONCLUSION: Focal dense consolidation right middle lobe, nonspecific but most likely infectious or inflammatory. Also a 3 mm right basilar pulmonary nodule Followup noncontrast chest CT in a few months recommended to confirm resolution/stability. Glenroy Sheffield MD Abdomen/Pelvis CT 07/25/16 0000 Signed Impressions: Service Date/Time: Monday, July 25, 2016 16:37 - CONCLUSION: 1. Fatty liver and 21 mm right ovarian cyst. Otherwise, no acute abnormality seen within the abdomen or pelvis. 2. Swollen, heterogeneous right hip musculature, primarily gluteus medius and minimus, rectus femoris and vastus lateralis and the adductor muscles. This is nonspecific but suggests a subacute hematoma of these structures. Nothing organized/measurable. 3. Chronic L5 pars defects with grade 2 L5/S1 spondylolisthesis. Glenroy Sheffield MD Objective Remarks GENERAL: 30-year-old female. Critically ill currently resting in bed in no acute distress CARDIOVASCULAR: RRR Faint systolic 2/6 murmur RESPIRATORY: clear to auscultation w no wheezing this morning. GASTROINTESTINAL: Abdomen soft, non-tender, nondistended. Hypoactive bowel sounds. Abrasions. MUSCULOSKELETAL: Right thigh currently with wound VAC lateral aspect. Right hip tender with restricted mobility. Positive peripheral edema right greater than left lower extremity. NEUROLOGICAL: Awake and alert to person, place and year. Motor grossly within normal limits. Procedures Status post right leg washout, xenograft placement and partial wound closure on 08/06. Medications and IVs Current Medications Medications (Trade) Dose Ordered Sig/Sara Route Start Time Stop Time Status Last Admin (NS Flush) 2 ml UNSCH PRN IV FLUSH 07/25/16 16:15 08/04/16 05:10 (NS Flush) 2 ml BID IV FLUSH 07/25/16 21:00 08/19/16 08:53 Miscellaneous Information 1 Q361D XX 07/25/16 16:15 (Chlorhexidine 2% Cloth) Taper DAILY@04 TOP 07/26/16 04:00 07/22/17 03:59 07/30/16 04:00 (Chlorhexidine 2% Cloth) 3 pack UNSCH PRN TOP 07/25/16 16:15 (Ecotrin Ec) 325 mg DAILY PO 07/26/16 09:00 08/19/16 08:53 (Morphine Inj) 4 mg Q2H PRN IV 07/25/16 23:45 08/15/16 07:49 (Theragran) 1 tab DAILY PO 07/26/16 09:00 08/19/16 08:53 (Folate) 1 mg DAILY PO 07/26/16 09:00 08/19/16 08:52 (Zofran Inj) 4 mg Q6H PRN IV 07/26/16 08:00 07/29/16 04:18 (D50w (Vial) Inj) 25 ml UNSCH PRN IV PUSH 07/26/16 08:15 (Glucagon Inj) 1 mg UNSCH PRN OTHER 07/26/16 08:15 (Xifaxan) 550 mg BID PO 07/26/16 10:00 08/19/16 08:52 (Apresoline Inj) 10 mg Q1HR PRN IV PUSH 07/28/16 09:30 08/01/16 09:30 (Nitroglycerin 2% Oint) 1 inch Q6H PRN TOPICAL 07/28/16 09:30 (Pepcid) 10 mg BID PO 07/29/16 09:00 08/19/16 08:53 (Pill Splitter) 1 ea UNSCH PRN OTHER 07/29/16 09:00 (Roxicodone) 5 mg Q6H PRN PO 07/29/16 09:00 08/19/16 11:06 (Lactulose Liq) 30 ml BID PO 07/30/16 21:00 08/19/16 08:53 (NS Flush) UNSCH PRN IVF 07/30/16 16:15 Heparin Sodium (Porcine) UNSCH PRN IVF 07/30/16 16:15 08/11/16 11:35 (NS 1000 ml Inj) 1,000 ml @ 0 mls/hr TITRATE PRN IV 07/31/16 17:45 08/09/16 10:39 (Heparin Inj) 8,000 units UNSCH PRN IV FLUSH 07/31/16 17:45 08/04/16 10:10 Heparin Sodium (Porcine) 1000 units 1,000 units Q1H PRN IV FLUSH 07/31/16 17:45 08/09/16 10:41 Sodium Chloride 1,000 ml @ 200 mls/hr Q5H PRN IV 07/31/16 17:45 08/02/16 12:45 (NS 250 ml Inj) 200 ml @ 0 mls/hr UNSCH PRN IV 07/31/16 17:45 (Mannitol Inj) 12.5 gm UNSCH PRN IV 07/31/16 17:45 (Albumin 25% Inj) 25 gm UNSCH PRN IV 07/31/16 17:45 (NS Flush) 5 ml UNSCH PRN IVF 07/31/16 17:45 08/06/16 14:22 (Heparin Inj) Dwell Heparin to f... UNSCH PRN OTHER 07/31/16 17:45 (Gentamicin (Dialysis) Inj) 10 mg UNSCH PRN OTHER 07/31/16 17:45 08/11/16 11:34 (Gelfoam 12 Mm/7 Mm Top) 1 foam UNSCH PRN TOP 07/31/16 17:45 (Zofran Inj) 4 mg UNSCH PRN IV 07/31/16 17:45 (Benadryl) 25 mg UNSCH PRN PO 07/31/16 17:45 (Nitrostat Sl) 0.4 mg UNSCH PRN SL 07/31/16 17:45 (Catapres) 0.1 mg UNSCH PRN PO 07/31/16 17:45 (Catapres) 0.1 mg Q12HR PO 08/02/16 11:00 08/19/16 08:53 (Norvasc) 10 mg DAILY PO 08/03/16 09:00 08/19/16 08:53 (Vitamin B1) 100 mg DAILY PO 08/02/16 11:00 08/19/16 08:53 (Tessalon) 100 mg TID PRN PO 08/13/16 19:30 08/13/16 20:26 (Lopressor) 12.5 mg Q8HR PRN PO 08/15/16 15:00 08/15/16 15:50 (Ferrous Sulfate) 325 mg BID@,17 PO 08/18/16 17:00 08/19/16 11:06 Urinary Catheter: No Vascular Central Line Catheter: No A/P Problem List: (1) Compartment syndrome of right lower extremity ICD Code: T79.A21A Status: Acute (2) Rhabdomyolysis ICD Code: M62.82 Status: Resolved (3) Severe sepsis ICD Code: A41.9 Status: Resolved (4) Altered mental status ICD Code: R41.82 Status: Resolved (5) Drug overdose ICD Code: T50.901A Status: Resolved (6) Elevated troponin ICD Code: R79.89 Status: Resolved (7) Severe metabolic acidosis Status: Resolved (8) Lactic acidosis ICD Code: E87.2 Status: Resolved (9) Transaminitis ICD Code: R74.0 Status: Acute (10) Hypocalcemia ICD Code: E83.51 Status: Acute (11) Hyperkalemia ICD Code: E87.5 Status: Acute (12) ST elevation ICD Code: R94.31 Status: Acute (13) Acute kidney failure ICD Code: N17.9 Status: Acute (14) Leukocytosis ICD Code: D72.829 Status: Resolved (15) Small right middle lobe consolidation Status: Acute (16) Hip hematoma, right ICD Code: S70.01XA Status: Acute Assessment and Plan Right medial/lateral thigh compartment syndrome L5/S1 spondylolisthesis Status post day [address] Turner - wound VAC placement. Had wound vac changed 08/16/16 08/19/16 for skin graft next week ID: Severe sepsis Escherichia coli UTI -Source likely secondary to right thigh compartment syndrome -Infectious disease following. Small consolidation in the right middle lobe unlikely to be source of severe sepsis, Levaquin and Zosyn stopped for now. Infectious disease following. Previous urine culture grew Escherichia coli. 08/19 Monitor temps and vital signs. /Renal: Acute kidney failure on HD, nephrology following Acute rhabdomyolysis - on normal saline down to 70cc an hour -07/26 renal ultrasound revealed fluid of at poles of bilateral kidneys otherwise negative - Strict intake output. - Urine electrolytes intrinsic renal process/urine eosinophils negative. - Nephrology following. Still making some urine but noted to be decreased by RN. Getting HD - Noted decreased C3 of 19/C4 5, monitor creatinine. 08/19 Stop HD as per nephrology, CARLITO resolving, creatinine trending down and patient continues to have good urine output. Macrocytic anemia Thrombocytopenia 08/07 Acute post op anemia/ acute blood loss anemia. H/H stable fo far, monitor. -Monitor CBC, CMP, - Transfused total 4 units PRBCs, 2 pack platelets, 2 FFP 2 cryo-since admission - Hb 7.3 today. monitor closely. transfuse if <7.0 - Status post transfusion, monitor.. So far H/H stable. Severe Protein calorie malnutrition: Muscle waist. Alb 1.5 . Add ensure to diet. Also on albumin with HD Altered mental status. Resolved. Polysubstance abuse with drug overdose including cocaine/heroin. History of THC use. EtOH use. Counselled. Right upper extremity numbness. Resolving. S/P Liver biopsy by IR 08/13/16 -Watch for alcohol and drug withdrawal, Use PRN Ativan for anxiety and oxycodone /morphine as needed for pain. -CT of the head 07/25 revealed no acute intracranial findings. Continue aspirin , thiamine and multivitamins. -MRI brain 07/29 revealed T2 signal abnormality globus pallidus and mesial temporal lobe bilaterally. - EEG 07/30 revealed slowing system with moderate diffuse encephalopathy. No seizure activity. - Psychiatry clear to [place] act 07/29 - neurology evaluated the patient and feels that MRI results are from drug overdose. GI getting ophthalmology consult for eval w slit lamp for Bre- Sylvia rings - 08/05 ophtalmology exam negative for Bre-Sylvia rings. Mild Respiratory insufficiency secondary to pneumonia/metabolic acidosis Small consolidation right middle lobe Right basilar pulmonary nodule 3 mm - follow-up CT chest 3 months recommended Ongoing tobaccoism -now on RA, has cough but nonproductive, continue incentive spirometry, duo nebs. -CT chest 07/25 revealed right middle lobe infiltrate along with 3 mm right basilar pulmonary nodule. -Chest x-ray 07/26 reveals no significant cardio pulmonary findings Elevated troponin Severe lactic acidosis - resolved ST elevation in V1 and V2 Sinus tachycardia, Started metoprolol. HR improved. -Continue antibiotics,2d echo revealed EF 60-65%. NRWMA. Lactic acid has cleared on Norvasc 10 mg daily for hypertension, 0.1 mg po BID, with as needed hydralazine and Nitropaste, d/c labetalol BP stable. Continue Norvasc, clonidine. PRN hydralazine and nitropaste. with tachycardia, will repeat ekg, add metoprolol. GI: Transaminitis Rhabdomyolysis Hyperammonia -Transaminitis most likely secondary to shock/rhabdo -CT of the abdomen and pelvis shows fatty liver/21 mm right ovarian cyst -Negative hepatitis panel - Xifaxan 550 twice a day/lactulose 30 3 times a day for elevated ammonia. - Noted low ceruloplasmin. 9. 24 hr Urine copper 24, for liver biopsy on Tuesday - S/P liver biopsy 08/13/16 - showed minimal steatosis. WRAPPER OFF: Right ovarian cyst Beta hCG 1 PROPH: -Left lower extremity SCDs. Hold subcutaneous heparin given drop in hemoglobin. Discharge Planning Continue to monitor in the medical/surgical floor. Problem Qualifiers (1) Drug overdose: Qualified Code: T50.904A - Drug overdose, undetermined intent, initial encounter (2) Acute kidney failure: Qualified Code: N17.9 - Acute renal failure, unspecified acute renal failure type (3) Leukocytosis: Qualified Code: D72.829 - Leukocytosis, unspecified type Daniel Goncalves MD Aug 19, 2016 14:10
--- NOTE | 2016-08-19 15:37 | PD.CARD.PN ---
Subjective Subjective Remarks alert in nad Objective Vital Signs / I&O Vital Signs Date Time Temp Pulse Resp B/P Pulse Ox O2 Delivery O2 Flow Rate FiO2 08/19/16 12:00 97.9 69 18 103/68 95 08/19/16 08:00 98.5 75 18 107/79 97 08/19/16 04:00 97.6 75 20 106/76 97 08/19/16 00:00 98.1 71 20 107/64 97 08/18/16 20:00 99.3 77 20 120/78 96 08/18/16 19:58 74 08/18/16 16:00 99.0 86 20 98/66 99 I/O 08/18/16 08/18/16 08/18/16 08/19/16 08/19/16 08/19/16 06:59 14:59 22:59 06:59 14:59 22:59 Intake Total 480 ml 1200 ml 240 ml 240 ml Output Total 80 ml 350 ml 0 ml 100 ml Balance 400 ml 850 ml 240 ml 140 ml Intake Oral 480 ml 1200 ml 240 ml 240 ml Output Urine Total 200 ml Drainage Total 80 ml 150 ml 0 ml 100 ml # Voids 2 2 2 # Bowel Movements 0 3 Physical Exam GENERAL: SKIN: Warm and dry. HEAD: Normocephalic. EYES: No scleral icterus. No injection or drainage. NECK: Supple, trachea midline. No JVD or lymphadenopathy. CARDIOVASCULAR: Regular rate and rhythm without murmurs, gallops, or rubs. RESPIRATORY: Breath sounds equal bilaterally. No accessory muscle use. GASTROINTESTINAL: Abdomen soft, non-tender, nondistended. MUSCULOSKELETAL: No cyanosis, or edema. BACK: Nontender without obvious deformity. No CVA tenderness. GENERAL: SKIN: Warm and dry. HEAD: Normocephalic. EYES: No scleral icterus. No injection or drainage. NECK: Supple, trachea midline. No JVD or lymphadenopathy. CARDIOVASCULAR: Regular rate and rhythm without murmurs, gallops, or rubs. RESPIRATORY: Breath sounds equal bilaterally. No accessory muscle use. GASTROINTESTINAL: Abdomen soft, non-tender, nondistended. MUSCULOSKELETAL: No cyanosis, or edema. BACK: Nontender without obvious deformity. No CVA tenderness. Assessment and Plan Problem List: (1) Drug overdose (2) Hypocalcemia (3) SIRS (systemic inflammatory response syndrome) (4) Renal failure (5) Hyperkalemia (6) Lactic acidosis (7) Altered mental status (8) Severe sepsis (9) Elevated troponin (10) Severe metabolic acidosis (11) Acute kidney failure (12) Leukocytosis (13) Hip hematoma, right (14) Small right middle lobe consolidation (15) Rhabdomyolysis (16) Compartment syndrome of right lower extremity Assessment and Plan 1.) Elevated troponin - suspect d/t global hypoperfusion d/t hypotension form sepsis, ef=65%, patient is assymptomatic, trop < 1, on aspirin 325 mg qd, d/t arf lhc/pci would be high risk for deterioration in renal function and potential need for temporary or permanent dialysis 2.) POD 17 - hemodynamically stable 3.) ARF - d/t rhabdomyolysis from compartment syndrome, dialysis per dr Fletcher, uo @ 200 last 24 hours, 4.) HTN - started on amlodipine 10 mg qd 5.) RLE pain - slight improvement 6.) Anemia - improved s/p transfusion Problem Qualifiers (1) Drug overdose: Qualified Code: T50.904A - Drug overdose, undetermined intent, initial encounter (2) Acute kidney failure: Qualified Code: N17.9 - Acute renal failure, unspecified acute renal failure type (3) Leukocytosis: Qualified Code: D72.829 - Leukocytosis, unspecified type Luis Eduardo Carter MD Aug 19, 2016 15:37
--- NOTE | 2016-08-19 16:29 | HHI.NPPN ---
Subjective History of Present Illness 30 year old female with drug OD, Rt thigh compartment syndrome s/p Fasciotomy, Rhabdomyolysis, ARF Additional Remarks Patient is alert, no SOB, eating better, pain in leg is improving. Review of Systems General Constitutional: Fatigue Musculoskeletal MS: Pain/Stiffness Objective Data Data 08/18/16 08/19/16 19:00 07:00 Intake Total 1200 ml 480 ml Output Total 350 ml 100 ml Balance 850 ml 380 ml Intake Oral 1200 ml 480 ml Output Urine Total 200 ml Drainage Total 150 ml 100 ml # Voids 4 # Bowel Movements 3 Vital Signs Date Time Temp Pulse Resp B/P Pulse Ox O2 Delivery O2 Flow Rate FiO2 08/19/16 12:00 97.9 69 18 103/68 95 08/19/16 08:00 98.5 75 18 107/79 97 08/19/16 04:00 97.6 75 20 106/76 97 08/19/16 00:00 98.1 71 20 107/64 97 08/18/16 20:00 99.3 77 20 120/78 96 08/18/16 19:58 74 -: 08/18/16 0445 08/18/16 0445 Physical Exam General Appearance: No Acute Distress, Comfortable Neck Neck Exam: Neck Supple Pulmonary Resp Exam: Clear Bilaterally, Breath Sounds Equal Cardiology CV Exam: Regular, Normal Sinus Rhythm Gastrointestinal/Abdomen GI Exam: Soft, Non-Tender, Bowel Sounds Present Extremeties Extremities Exam: Trace Edema Neurologic Neuro Exam: Alert, Awake Assessment/Plan Problem List: (1) Acute kidney failure Plan: This is likely due to rhabdomyolysis and acute tubular necrosis Urine out put is better. No BMP today, will follow in AM. Once Creatinine continue to improve, will get Vascath removed. (2) Compartment syndrome of right lower extremity Plan: Status post surgery (3) UTI (urinary tract infection) Plan: treated (4) Severe sepsis Plan: Status post fasciotomy right leg S/P liver biopsy Problem Qualifiers (1) Acute kidney failure: Qualified Code: N17.9 - Acute renal failure, unspecified acute renal failure type Last Romero MD Aug 19, 2016 16:29
[2016-08-19] MEDS: CHLORHEXIDINE GLUCONATE 2 % 1 PACK (2 CLOTHS) TOP SCH (19:36)
[2016-08-20] VITALS (7 sets, daily range): BP systolic 104–145; BP diastolic 69–85; PULSE 72–93; RESP 17–18; TEMP 98–99; O2SAT 96–99
[2016-08-20 04:45] LABS: AUTOMATED NEUTROPHIL # 2.5 TH/MM3 (1.8-7.7); EOSINOPHIL # 0.2 TH/MM3 (0-0.4); EOSINOPHIL % 4.3 % (0.0-4.0); HEMATOCRIT 24.7 % (35.0-46.0); HEMO FLAGS DIFF FINAL; LYMPH % 30.9 % (9.0-44.0); LYMPHOCYTE # 1.4 TH/MM3 (1.0-4.8); MEAN CELL VOLUME 90.5 FL (80.0-100.0); MEAN CORPUSCULAR HGB CONC 35.4 % (32.0-36.0); MONO % 7.4 % (0.0-8.0); NEUT % 56.4 % (16.0-70.0); PLATELET COUNT 206 TH/MM3 (150-450); RED BLOOD COUNT 2.73 MIL/MM3 (4.00-5.30); RED CELL DISTRIBUTION WIDTH 15.5 % (11.6-17.2); WHITE BLOOD COUNT 4.4 TH/MM3 (4.0-11.0)
[2016-08-20 05:04] LABS: ALT (GPT) 14 U/L (10-53); ANION GAP 12 MEQ/L (5-15); AST (GOT) 24 U/L (15-37); BICARBONATE 21.5 MEQ/L (21.0-32.0); BLOOD UREA NITROGEN 15 MG/DL (7-18); CHLORIDE 109 MEQ/L (98-107); GLOMERULAR FILTRATION RATE 25 ML/MIN (>89); MAGNESIUM 1.7 MG/DL (1.5-2.5); POTASSIUM 3.5 MEQ/L (3.5-5.1); SODIUM (NA) 142 MEQ/L (136-145)
[2016-08-20 05:07] LABS: ALKALINE PHOSPHATASE 82 U/L (45-117); TOTAL BILIRUBIN ADULT 0.3 MG/DL (0.2-1.0)
[2016-08-20] MEDS: SODIUM CHLORIDE 0.9% FLUSH 5 ML FLUSH IV FLUSH SCH ×2 (08:44→20:05)
[2016-08-20] MEDS: RIFAXIMIN 550 MG TAB PO SCH ×2 (08:44→20:04)
[2016-08-20] MEDS: ASPIRIN EC 325 MG TABEC PO SCH (08:44)
[2016-08-20] MEDS: THIAMINE HCL 100 MG TAB PO SCH (08:44)
[2016-08-20] MEDS: MULTIVITAMIN TAB PO SCH (08:44)
[2016-08-20] MEDS: cloNIDine HCL 0.1 MG TAB PO SCH ×2 (08:44→20:04)
[2016-08-20] MEDS: FOLIC ACID 1 MG TAB PO SCH (08:44)
[2016-08-20] MEDS: FAMOTIDINE 20 MG TAB PO SCH ×2 (08:44→20:04)
[2016-08-20] MEDS: LACTULOSE SYRUP 20 GM/30 ML CUP PO SCH ×2 (08:44→20:04)
--- NOTE | 2016-08-20 09:23 | PD.CARD.PN ---
Subjective Subjective Remarks alert in nad Objective Vital Signs / I&O Vital Signs Date Time Temp Pulse Resp B/P Pulse Ox O2 Delivery O2 Flow Rate FiO2 08/20/16 08:00 99.0 75 17 111/78 96 08/20/16 04:00 98.0 72 18 121/79 99 08/20/16 00:00 98.4 76 18 119/74 98 08/19/16 20:00 99.3 93 18 107/68 97 08/19/16 19:29 83 08/19/16 16:00 97.4 74 18 104/68 96 08/19/16 12:00 97.9 69 18 103/68 95 I/O 08/19/16 08/19/16 08/19/16 08/20/16 08/20/16 08/20/16 06:59 14:59 22:59 06:59 14:59 22:59 Intake Total 240 ml 600 ml 320 ml 320 ml Output Total 100 ml 50 ml 50 ml Balance 140 ml 600 ml 270 ml 270 ml Intake Oral 240 ml 600 ml 320 ml 320 ml IV Total 0 ml 0 ml Drainage Total 100 ml 50 ml 50 ml # Voids 2 2 1 2 # Bowel Movements 0 0 0 Physical Exam GENERAL: SKIN: Warm and dry. HEAD: Normocephalic. EYES: No scleral icterus. No injection or drainage. NECK: Supple, trachea midline. No JVD or lymphadenopathy. CARDIOVASCULAR: Regular rate and rhythm without murmurs, gallops, or rubs. RESPIRATORY: Breath sounds equal bilaterally. No accessory muscle use. GASTROINTESTINAL: Abdomen soft, non-tender, nondistended. MUSCULOSKELETAL: No cyanosis, or edema. BACK: Nontender without obvious deformity. No CVA tenderness. GENERAL: SKIN: Warm and dry. HEAD: Normocephalic. EYES: No scleral icterus. No injection or drainage. NECK: Supple, trachea midline. No JVD or lymphadenopathy. CARDIOVASCULAR: Regular rate and rhythm without murmurs, gallops, or rubs. RESPIRATORY: Breath sounds equal bilaterally. No accessory muscle use. GASTROINTESTINAL: Abdomen soft, non-tender, nondistended. MUSCULOSKELETAL: No cyanosis, or edema. BACK: Nontender without obvious deformity. No CVA tenderness. Laboratory Laboratory Tests Test 08/20/16 03:25 White Blood Count 4.4 TH/MM3 Red Blood Count 2.73 MIL/MM3 Hemoglobin 8.7 GM/DL Hematocrit 24.7 % Mean Corpuscular Volume 90.5 FL Mean Corpuscular Hemoglobin 32.0 PG Mean Corpuscular Hemoglobin 35.4 % Concent Red Cell Distribution Width 15.5 % Platelet Count 206 TH/MM3 Mean Platelet Volume 8.1 FL Neutrophils (%) (Auto) 56.4 % Lymphocytes (%) (Auto) 30.9 % Monocytes (%) (Auto) 7.4 % Eosinophils (%) (Auto) 4.3 % Basophils (%) (Auto) 1.0 % Neutrophils # (Auto) 2.5 TH/MM3 Lymphocytes # (Auto) 1.4 TH/MM3 Monocytes # (Auto) 0.3 TH/MM3 Eosinophils # (Auto) 0.2 TH/MM3 Basophils # (Auto) 0.0 TH/MM3 CBC Comment DIFF FINAL Differential Comment Sodium Level 142 MEQ/L Potassium Level 3.5 MEQ/L Chloride Level 109 MEQ/L Carbon Dioxide Level 21.5 MEQ/L Anion Gap 12 MEQ/L Blood Urea Nitrogen 15 MG/DL Creatinine 2.32 MG/DL Estimat Glomerular Filtration 25 ML/MIN Rate Random Glucose 95 MG/DL Calcium Level 8.4 MG/DL Phosphorus Level 4.3 MG/DL Magnesium Level 1.7 MG/DL Total Bilirubin 0.3 MG/DL Aspartate Amino Transf 24 U/L (AST/SGOT) Alanine Aminotransferase 14 U/L (ALT/SGPT) Alkaline Phosphatase 82 U/L Total Protein 5.2 GM/DL Albumin 2.1 GM/DL Assessment and Plan Problem List: (1) Drug overdose (2) Hypocalcemia (3) SIRS (systemic inflammatory response syndrome) (4) Renal failure (5) Hyperkalemia (6) Lactic acidosis (7) Altered mental status (8) Severe sepsis (9) Elevated troponin (10) Severe metabolic acidosis (11) Acute kidney failure (12) Leukocytosis (13) Hip hematoma, right (14) Small right middle lobe consolidation (15) Rhabdomyolysis (16) Compartment syndrome of right lower extremity Assessment and Plan 1.) Elevated troponin - suspect d/t global hypoperfusion d/t hypotension form sepsis, ef=65%, patient is assymptomatic, trop < 1, on aspirin 325 mg qd, d/t arf lhc/pci would be high risk for deterioration in renal function and potential need for temporary or permanent dialysis 2.) POD 18 - hemodynamically stable 3.) ARF - d/t rhabdomyolysis from compartment syndrome, dialysis per dr Fletcher, scr=2.32, 4.) HTN - started on amlodipine 10 mg qd 5.) RLE pain - slight improvement 6.) Anemia - improved s/p transfusion Problem Qualifiers (1) Drug overdose: Qualified Code: T50.904A - Drug overdose, undetermined intent, initial encounter (2) Acute kidney failure: Qualified Code: N17.9 - Acute renal failure, unspecified acute renal failure type (3) Leukocytosis: Qualified Code: D72.829 - Leukocytosis, unspecified type Luis Eduardo Carter MD Aug 20, 2016 09:23
--- NOTE | 2016-08-20 10:22 | HHI.GIFU ---
Subjective Remarks Patient is resting in bed, no nausea, vomiting, or abdominal pain. (Matt Rhinaadlai COREAS) Objective Vitals I&O Vital Signs Date Time Temp Pulse Resp B/P Pulse Ox O2 Delivery O2 Flow Rate FiO2 08/20/16 08:00 99.0 75 17 111/78 96 08/20/16 04:00 98.0 72 18 121/79 99 08/20/16 00:00 98.4 76 18 119/74 98 08/19/16 20:00 99.3 93 18 107/68 97 08/19/16 19:29 83 08/19/16 16:00 97.4 74 18 104/68 96 08/19/16 12:00 97.9 69 18 103/68 95 I/O 08/19/16 08/19/16 08/19/16 08/20/16 08/20/16 08/20/16 07:00 15:00 23:00 07:00 15:00 23:00 Intake Total 240 ml 600 ml 320 ml 320 ml Output Total 100 ml 50 ml 50 ml Balance 140 ml 600 ml 270 ml 270 ml Intake Oral 240 ml 600 ml 320 ml 320 ml IV Total 0 ml 0 ml Drainage Total 100 ml 50 ml 50 ml # Voids 2 2 1 2 # Bowel Movements 0 0 0 Laboratory Laboratory Tests Test 08/20/16 03:25 White Blood Count 4.4 Red Blood Count 2.73 Hemoglobin 8.7 Hematocrit 24.7 Mean Corpuscular Volume 90.5 Mean Corpuscular Hemoglobin 32.0 Mean Corpuscular Hemoglobin 35.4 Concent Red Cell Distribution Width 15.5 Platelet Count 206 Mean Platelet Volume 8.1 Neutrophils (%) (Auto) 56.4 Lymphocytes (%) (Auto) 30.9 Monocytes (%) (Auto) 7.4 Eosinophils (%) (Auto) 4.3 Basophils (%) (Auto) 1.0 Neutrophils # (Auto) 2.5 Lymphocytes # (Auto) 1.4 Monocytes # (Auto) 0.3 Eosinophils # (Auto) 0.2 Basophils # (Auto) 0.0 CBC Comment DIFF FINAL Differential Comment Sodium Level 142 Potassium Level 3.5 Chloride Level 109 Carbon Dioxide Level 21.5 Anion Gap 12 Blood Urea Nitrogen 15 Creatinine 2.32 Estimat Glomerular Filtration 25 Rate Random Glucose 95 Calcium Level 8.4 Phosphorus Level 4.3 Magnesium Level 1.7 Total Bilirubin 0.3 Aspartate Amino Transf 24 (AST/SGOT) Alanine Aminotransferase 14 (ALT/SGPT) Alkaline Phosphatase 82 Total Protein 5.2 Albumin 2.1 Imaging Last Impressions Liver Biopsy CT 08/13/16 0000 Signed Impressions: Service Date/Time: Saturday, August 13, 2016 12:42 - CONCLUSION: Uncomplicated CT guided biopsy. Raymundo Agarwal MD Chest X-Ray 08/09/16 0000 Signed Impressions: Service Date/Time: Tuesday, August 09, 2016 19:30 - CONCLUSION: 1. Interval placement of double-lumen central venous line. 2. Hazy opacity at the lung bases with mild blunting of the left costophrenic angle which could indicate a small effusion. Nael Zuñiga MD Catheter Placement X-Ray 07/30/16 0000 Signed Impressions: Service Date/Time: Saturday, July 30, 2016 14:14 - CONCLUSION: Uncomplicated line placement as above. Judson Cee MD Brain MRI 07/29/16 0000 Signed Impressions: Service Date/Time: July 13:34 - CONCLUSION: 1. Abnormal examination of the brain demonstrating areas of T2 signal and abnormal diffusion signal involving the globus pallidus bilaterally and the mesial temporal lobes bilaterally. Primary considerations would include carbon monoxide poisoning versus other partial anoxic brain injury. Please see above discussion. Aamir Narayanan MD Abdomen Ultrasound 07/26/16 0000 Signed Impressions: Service Date/Time: Tuesday, July 26, 2016 10:21 - CONCLUSION: 1. Small amount of free fluid adjacent to the lower poles of both kidneys. 2. Obscuration of the head of the pancreas, distal IVC and aorta due to overlying bowel gas. 3. Otherwise negative. Judson Cee MD Lower Extremity CT 07/25/16 0000 Signed Impressions: Service Date/Time: Monday, July 25, 2016 18:54 - CONCLUSION: Extensive nonspecific myositis of the right thigh, also involves gluteus medius and minimus proximally and at least medial gastrocnemius below the knee. Infectious/inflammatory and ischemic etiologies would be in the differential. No gas bubbles are seen to substantiate necrotizing fasciitis. No organized/drainable abscess. Glenroy Sheffield MD Hip and Pelvis X-Ray 07/25/16 0000 Signed Impressions: Service Date/Time: Monday, July 25, 2016 16:52 - CONCLUSION: Intact pelvis and right hip. Nonspecific surrounding soft tissue swelling Glenroy Sheffield MD Head CT 07/25/16 0000 Signed Impressions: Service Date/Time: Monday, July 25, 2016 14:38 - CONCLUSION: Negative noncontrast head CT. Glenroy Sheffield MD Chest CT 07/25/16 0000 Signed Impressions: Service Date/Time: Monday, July 25, 2016 16:37 - CONCLUSION: Focal dense consolidation right middle lobe, nonspecific but most likely infectious or inflammatory. Also a 3 mm right basilar pulmonary nodule Followup noncontrast chest CT in a few months recommended to confirm resolution/stability. Glenroy Sheffield MD Abdomen/Pelvis CT 07/25/16 0000 Signed Impressions: Service Date/Time: Monday, July 25, 2016 16:37 - CONCLUSION: 1. Fatty liver and 21 mm right ovarian cyst. Otherwise, no acute abnormality seen within the abdomen or pelvis. 2. Swollen, heterogeneous right hip musculature, primarily gluteus medius and minimus, rectus femoris and vastus lateralis and the adductor muscles. This is nonspecific but suggests a subacute hematoma of these structures. Nothing organized/measurable. 3. Chronic L5 pars defects with grade 2 L5/S1 spondylolisthesis. Glenroy Sheffield MD Physical Exam CHEST: CTA CARDIAC: RRR ABDOMEN: Soft, nondistended, nontender; no hepatosplenomegaly; bowel sounds are present in all four quadrants. EXTREMITIES: No clubbing, cyanosis. RLE edema SKIN: Normal; no rash; no jaundice. 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 (Riri Gutierrez) Assessment and Plan Plan ASSESSMENT: - Elevated LFTs, possibly combination of shocked liver and rhabdomyolysis. Abdomen Ultrasound (07/26/16)----> 1. Small amount of free fluid adjacent to the lower poles of both kidneys. 2. Obscuration of the head of the pancreas, distal IVC and aorta due to overlying bowel gas. 3. Otherwise negative. Abdomen/Pelvis CT (07/25/16)----> 1. Fatty liver and 21 mm right ovarian cyst. Otherwise, no acute abnormality seen within the abdomen or pelvis. 2. Swollen, heterogeneous right hip musculature, primarily gluteus medius and minimus, rectus femoris and vastus lateralis and the adductor muscles. This is nonspecific but suggests a subacute hematoma of these structures. Nothing organized/measurable. 3. Chronic L5 pars defects with grade 2 L5/S1 spondylolisthesis. Toxicology report---- > Acetaminophen less than 2.0, Salicylates less than 1.7, Ethyl alcohol 28, toxicology screen negative- although the patient reports that she does use pills and smoke marijuana. Hepatitis panel negative. She does have documented episodes of hypotension as well as rhabdomyolysis. JORY negative, ASMA negative, AMA negative, Ferritin 400, Iron saturation 81.4 (post transfusion), Ceruloplasmin 9, ALpha 1 Antitrypsin 95. 24 hour urine for copper 27, copper concentration 46- normal limits. 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 LFTs have normalized. Liver biopsy is scheduled for Tuesday (ASA has to be held for 5 days). - Low Ceruloplasmin level 9. Brain MRI (07/29/16)----> 1. Abnormal examination of the brain demonstrating areas of T2 signal and abnormal diffusion signal involving the globus pallidus bilaterally and the mesial temporal lobes bilaterally. Primary considerations would include carbon monoxide poisoning versus other partial anoxic brain injury. Please see above discussion. Of note, Branden's disease was also mentioned in the differential. 24 hour urine for copper 27, copper concentration 46- normal limits. S/p ophthalmology slit lamp exam-----> normal exam. Liver biopsy. - Low Alpha 1 Antitrypsin 95. Rpt. high- 192, Phenotype MM - AMS, IMPROVED. Xifaxan, Lactulose. - Rhabdomyolysis. IMPROVED - Compartment syndrome, s/p fasciotomy, wound vac placement. Went to OR 08/06 for washout of her fasciotomy site of the right thigh with placement of a acellular xenograft - Sepsis, elevated lactic acid, likely t/t right thigh compartment syndrome. - Coagulopathy, IMPROVED - Anemia, stable. - CARLITO, HD per renal 08/17/16- liver bx still pending, patient her self denies any GI issues, LFTs normal., a drop in hgb yesterday was 7.6, no obvious bleeding reported 08/20/16- liver bx showed fatty liver, special testing to r/o Branden disease pending and will be reported separately, hgb stable, LFTs normal, no GI complaints . Plan: - JACY - Monitor HH - Transfuse as necessary - Avoid hypotension - GI will sign off - F/u with GI in 2 weeks - Supportive care - Further recommendations to follow based on results of above - PT seen and examined by and myself (Riri Gutierrez) Physician Comments As above, please notify us if needed. (Rk Dempsey MD) Riri Gutierrez Aug 20, 2016 10:22 Rk Dempsey MD Aug 20, 2016 12:37
[2016-08-20] MEDS: FERROUS SULFATE 325 MG (65 MG ELEMENTAL IRON) TAB PO SCH ×2 (13:38→17:56)
--- NOTE | 2016-08-20 16:50 | HHI.PR ---
Subjective Remarks denies cp/sob denies fevers/chills afebrile Objective Vitals Vital Signs Date Time Temp Pulse Resp B/P Pulse Ox O2 Delivery O2 Flow Rate FiO2 08/20/16 16:00 98.3 92 17 117/69 99 08/20/16 12:00 98.6 76 17 104/74 98 08/20/16 08:00 99.0 75 17 111/78 96 08/20/16 04:00 98.0 72 18 121/79 99 08/20/16 00:00 98.4 76 18 119/74 98 08/19/16 20:00 99.3 93 18 107/68 97 08/19/16 19:29 83 I/O 08/19/16 08/19/16 08/19/16 08/20/16 08/20/16 08/20/16 06:59 14:59 22:59 06:59 14:59 22:59 Intake Total 240 ml 600 ml 320 ml 320 ml Output Total 100 ml 50 ml 50 ml 50 ml Balance 140 ml 600 ml 270 ml 270 ml -50 ml Intake Oral 240 ml 600 ml 320 ml 320 ml IV Total 0 ml 0 ml Drainage Total 100 ml 50 ml 50 ml 50 ml # Voids 2 2 1 2 1 # Bowel Movements 0 0 0 1 Result Diagram: 08/20/1632408/20/16324 Objective Remarks GENERAL: 30-year-old female. Critically ill currently resting in bed in no acute distress CARDIOVASCULAR: RRR Faint systolic 2/6 murmur RESPIRATORY: clear to auscultation w no wheezing this morning. GASTROINTESTINAL: Abdomen soft, non-tender, nondistended. Hypoactive bowel sounds. Abrasions. MUSCULOSKELETAL: Right thigh currently with wound VAC lateral aspect. Right hip tender with restricted mobility. Positive peripheral edema right greater than left lower extremity. NEUROLOGICAL: Awake and alert to person, place and year. Motor grossly within normal limits. Procedures Status post right leg washout, xenograft placement and partial wound closure on 08/06. A/P Problem List: (1) Compartment syndrome of right lower extremity ICD Code: T79.A21A Status: Acute (2) Rhabdomyolysis ICD Code: M62.82 Status: Resolved (3) Severe sepsis ICD Code: A41.9 Status: Resolved (4) Altered mental status ICD Code: R41.82 Status: Resolved (5) Drug overdose ICD Code: T50.901A Status: Resolved (6) Elevated troponin ICD Code: R79.89 Status: Resolved (7) Severe metabolic acidosis Status: Resolved (8) Lactic acidosis ICD Code: E87.2 Status: Resolved (9) Transaminitis ICD Code: R74.0 Status: Acute (10) Hypocalcemia ICD Code: E83.51 Status: Acute (11) Hyperkalemia ICD Code: E87.5 Status: Acute (12) ST elevation ICD Code: R94.31 Status: Acute (13) Acute kidney failure ICD Code: N17.9 Status: Acute (14) Leukocytosis ICD Code: D72.829 Status: Resolved (15) Small right middle lobe consolidation Status: Acute (16) Hip hematoma, right ICD Code: S70.01XA Status: Acute Assessment and Plan Right medial/lateral thigh compartment syndrome L5/S1 spondylolisthesis Status post day [address] Turner - wound VAC placement. Had wound vac changed 08/16/16 08/19/16 for skin graft next week ID: Severe sepsis Escherichia coli UTI -Source likely secondary to right thigh compartment syndrome -Infectious disease following. Small consolidation in the right middle lobe unlikely to be source of severe sepsis, Levaquin and Zosyn stopped for now. Infectious disease following. Previous urine culture grew Escherichia coli. 08/19 Monitor temps and vital signs. /Renal: Acute kidney failure on HD, nephrology following Acute rhabdomyolysis - on normal saline down to 70cc an hour -07/26 renal ultrasound revealed fluid of at poles of bilateral kidneys otherwise negative - Strict intake output. - Urine electrolytes intrinsic renal process/urine eosinophils negative. - Nephrology following. Still making some urine but noted to be decreased by RN. Getting HD - Noted decreased C3 of 19/C4 5, monitor creatinine. 08/19 Stop HD as per nephrology, CARLITO resolving, creatinine trending down and patient continues to have good urine output. Macrocytic anemia Thrombocytopenia 08/07 Acute post op anemia/ acute blood loss anemia. H/H stable fo far, monitor. -Monitor CBC, CMP, - Transfused total 4 units PRBCs, 2 pack platelets, 2 FFP 2 cryo-since admission - Hb 7.3 today. monitor closely. transfuse if <7.0 - Status post transfusion, monitor.. So far H/H stable. Severe Protein calorie malnutrition: Muscle waist. Alb 1.5 . Add ensure to diet. Also on albumin with HD Altered mental status. Resolved. Polysubstance abuse with drug overdose including cocaine/heroin. History of THC use. EtOH use. Counselled. Right upper extremity numbness. Resolving. S/P Liver biopsy by IR 08/13/16 -Watch for alcohol and drug withdrawal, Use PRN Ativan for anxiety and oxycodone /morphine as needed for pain. -CT of the head 07/25 revealed no acute intracranial findings. Continue aspirin , thiamine and multivitamins. -MRI brain 07/29 revealed T2 signal abnormality globus pallidus and mesial temporal lobe bilaterally. - EEG 07/30 revealed slowing system with moderate diffuse encephalopathy. No seizure activity. - Psychiatry clear to [facility] act 07/29 - neurology evaluated the patient and feels that MRI results are from drug overdose. GI getting ophthalmology consult for eval w slit lamp for Bre- Sylvia rings - 08/05 ophtalmology exam negative for Bre-Sylvia rings. Mild Respiratory insufficiency secondary to pneumonia/metabolic acidosis Small consolidation right middle lobe Right basilar pulmonary nodule 3 mm - follow-up CT chest 3 months recommended Ongoing tobaccoism -now on RA, has cough but nonproductive, continue incentive spirometry, duo nebs. -CT chest 07/25 revealed right middle lobe infiltrate along with 3 mm right basilar pulmonary nodule. -Chest x-ray 07/26 reveals no significant cardio pulmonary findings Elevated troponin Severe lactic acidosis - resolved ST elevation in V1 and V2 Sinus tachycardia, Started metoprolol. HR improved. -Continue antibiotics,2d echo revealed EF 60-65%. NRWMA. Lactic acid has cleared on Norvasc 10 mg daily for hypertension, 0.1 mg po BID, with as needed hydralazine and Nitropaste, d/c labetalol BP stable. Continue Norvasc, clonidine. PRN hydralazine and nitropaste. Continue metoprolol - tachycardia improved. GI: Transaminitis Rhabdomyolysis Hyperammonia -Transaminitis most likely secondary to shock/rhabdo -CT of the abdomen and pelvis shows fatty liver/21 mm right ovarian cyst -Negative hepatitis panel - Xifaxan 550 twice a day/lactulose 30 3 times a day for elevated ammonia. - Noted low ceruloplasmin. 9. 24 hr Urine copper 24, for liver biopsy on Tuesday - S/P liver biopsy 08/13/16 - showed minimal steatosis. 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 Hold subcutaneous heparin given drop in hemoglobin. Discharge Planning Continue to monitor in the medical/surgical floor. Problem Qualifiers (1) Drug overdose: Qualified Code: T50.904A - Drug overdose, undetermined intent, initial encounter (2) Acute kidney failure: Qualified Code: N17.9 - Acute renal failure, unspecified acute renal failure type (3) Leukocytosis: Qualified Code: D72.829 - Leukocytosis, unspecified type Daniel Goncalves MD Aug 20, 2016 16:50
--- NOTE | 2016-08-20 17:43 | HHI.PR ---
Subjective Remarks denies cp/sob denies fevers/chills denies diarrhea minipal pain in right thigh Objective Vitals Vital Signs Date Time Temp Pulse Resp B/P Pulse Ox O2 Delivery O2 Flow Rate FiO2 08/20/16 16:00 98.3 92 17 117/69 99 08/20/16 12:00 98.6 76 17 104/74 98 08/20/16 08:00 99.0 75 17 111/78 96 08/20/16 04:00 98.0 72 18 121/79 99 08/20/16 00:00 98.4 76 18 119/74 98 08/19/16 20:00 99.3 93 18 107/68 97 08/19/16 19:29 83 I/O 08/19/16 08/19/16 08/19/16 08/20/16 08/20/16 08/20/16 07:00 15:00 23:00 07:00 15:00 23:00 Intake Total 240 ml 600 ml 320 ml 320 ml Output Total 100 ml 50 ml 50 ml 50 ml Balance 140 ml 600 ml 270 ml 270 ml -50 ml Intake Oral 240 ml 600 ml 320 ml 320 ml IV Total 0 ml 0 ml Drainage Total 100 ml 50 ml 50 ml 50 ml # Voids 2 2 1 2 1 # Bowel Movements 0 0 0 1 Result Diagram: 08/20/16 0325 08/20/16 0325 Imaging Last Impressions Liver Biopsy CT 08/13/16 0000 Signed Impressions: Service Date/Time: Saturday, August 13, 2016 12:42 - CONCLUSION: Uncomplicated CT guided biopsy. Raymundo Agarwal MD Chest X-Ray 08/09/16 0000 Signed Impressions: Service Date/Time: Tuesday, August 09, 2016 19:30 - CONCLUSION: 1. Interval placement of double-lumen central venous line. 2. Hazy opacity at the lung bases with mild blunting of the left costophrenic angle which could indicate a small effusion. Nael Zuñiga MD Catheter Placement X-Ray 07/30/16 0000 Signed Impressions: Service Date/Time: Saturday, July 30, 2016 14:14 - CONCLUSION: Uncomplicated line placement as above. Judson Cee MD Brain MRI 07/29/16 0000 Signed Impressions: Service Date/Time: July 13:34 - CONCLUSION: 1. Abnormal examination of the brain demonstrating areas of T2 signal and abnormal diffusion signal involving the globus pallidus bilaterally and the mesial temporal lobes bilaterally. Primary considerations would include carbon monoxide poisoning versus other partial anoxic brain injury. Please see above discussion. Aamir Narayanan MD Abdomen Ultrasound 07/26/16 Signed Impressions: Service Date/Time: Tuesday, July 26, 2016 10:21 - CONCLUSION: 1. Small amount of free fluid adjacent to the lower poles of both kidneys. 2. Obscuration of the head of the pancreas, distal IVC and aorta due to overlying bowel gas. 3. Otherwise negative. Judson Cee MD Lower Extremity CT 07/25/16 0000 Signed Impressions: Service Date/Time: Monday, July 25, 2016 18:54 - CONCLUSION: Extensive nonspecific myositis of the right thigh, also involves gluteus medius and minimus proximally and at least medial gastrocnemius below the knee. Infectious/inflammatory and ischemic etiologies would be in the differential. No gas bubbles are seen to substantiate necrotizing fasciitis. No organized/drainable abscess. Glenroy Sheffield MD Hip and Pelvis X-Ray 07/25/16 0000 Signed Impressions: Service Date/Time: Monday, July 25, 2016 16:52 - CONCLUSION: Intact pelvis and right hip. Nonspecific surrounding soft tissue swelling Glenroy Sheffield MD Head CT 07/25/16 0000 Signed Impressions: Service Date/Time: Monday, July 25, 2016 14:38 - CONCLUSION: Negative noncontrast head CT. Glenroy Sheffield MD Chest CT 07/25/16 0000 Signed Impressions: Service Date/Time: Monday, July 25, 2016 16:37 - CONCLUSION: Focal dense consolidation right middle lobe, nonspecific but most likely infectious or inflammatory. Also a 3 mm right basilar pulmonary nodule Followup noncontrast chest CT in a few months recommended to confirm resolution/stability. Glenroy Sheffield MD Abdomen/Pelvis CT 07/25/16 0000 Signed Impressions: Service Date/Time: Monday, July 25, 2016 16:37 - CONCLUSION: 1. Fatty liver and 21 mm right ovarian cyst. Otherwise, no acute abnormality seen within the abdomen or pelvis. 2. Swollen, heterogeneous right hip musculature, primarily gluteus medius and minimus, rectus femoris and vastus lateralis and the adductor muscles. This is nonspecific but suggests a subacute hematoma of these structures. Nothing organized/measurable. 3. Chronic L5 pars defects with grade 2 L5/S1 spondylolisthesis. Glenroy Sheffield MD Objective Remarks GENERAL: 30-year-old female. Critically ill currently resting in bed in no acute distress CARDIOVASCULAR: RRR Faint systolic 2/6 murmur RESPIRATORY: clear to auscultation w no wheezing this morning. GASTROINTESTINAL: Abdomen soft, non-tender, nondistended. Hypoactive bowel sounds. Abrasions. MUSCULOSKELETAL: Right thigh currently with wound VAC lateral aspect. Right hip tender with restricted mobility. Positive peripheral edema right greater than left lower extremity. NEUROLOGICAL: Awake and alert to person, place and year. Motor grossly within normal limits. Procedures Status post right leg washout, xenograft placement and partial wound closure on 08/06. Medications and IVs Current Medications Medications (Trade) Dose Ordered Sig/Sara Route Start Time Stop Time Status Last Admin (NS Flush) 2 ml UNSCH PRN IV FLUSH 07/25/16 16:15 08/04/16 05:10 (NS Flush) 2 ml BID IV FLUSH 07/25/16 21:00 08/20/16 08:44 Miscellaneous Information 1 Q361D XX 07/25/16 16:15 (Chlorhexidine 2% Cloth) Taper DAILY@04 TOP 07/26/16 04:00 07/22/17 03:59 07/30/16 04:00 (Chlorhexidine 2% Cloth) 3 pack UNSCH PRN TOP 07/25/16 16:15 (Ecotrin Ec) 325 mg DAILY PO 07/26/16 09:00 08/20/16 08:44 (Morphine Inj) 4 mg Q2H PRN IV 07/25/16 23:45 08/15/16 07:49 (Theragran) 1 tab DAILY PO 07/26/16 09:00 08/20/16 08:44 (Folate) 1 mg DAILY PO 07/26/16 09:00 08/20/16 08:44 (Zofran Inj) 4 mg Q6H PRN IV 07/26/16 08:00 07/29/16 04:18 (D50w (Vial) Inj) 25 ml UNSCH PRN IV PUSH 07/26/16 08:15 (Glucagon Inj) 1 mg UNSCH PRN OTHER 07/26/16 08:15 (Xifaxan) 550 mg BID PO 07/26/16 10:00 08/20/16 08:44 (Apresoline Inj) 10 mg Q1HR PRN IV PUSH 07/28/16 09:30 08/01/16 09:30 (Nitroglycerin 2% Oint) 1 inch Q6H PRN TOPICAL 07/28/16 09:30 (Pepcid) 10 mg BID PO 07/29/16 09:00 08/20/16 08:44 (Pill Splitter) 1 ea UNSCH PRN OTHER 07/29/16 09:00 (Roxicodone) 5 mg Q6H PRN PO 07/29/16 09:00 08/20/16 13:38 (Lactulose Liq) 30 ml BID PO 07/30/16 21:00 08/20/16 08:44 (NS Flush) UNSCH PRN IVF 07/30/16 16:15 Heparin Sodium (Porcine) UNSCH PRN IVF 07/30/16 16:15 08/11/16 11:35 (NS 1000 ml Inj) 1,000 ml @ 0 mls/hr TITRATE PRN IV 07/31/16 17:45 08/09/16 10:39 (Heparin Inj) 8,000 units UNSCH PRN IV FLUSH 07/31/16 17:45 08/04/16 10:10 Heparin Sodium (Porcine) 1000 units 1,000 units Q1H PRN IV FLUSH 07/31/16 17:45 08/09/16 10:41 Sodium Chloride 1,000 ml @ 200 mls/hr Q5H PRN IV 07/31/16 17:45 08/02/16 12:45 (NS 250 ml Inj) 200 ml @ 0 mls/hr UNSCH PRN IV 07/31/16 17:45 (Mannitol Inj) 12.5 gm UNSCH PRN IV 07/31/16 17:45 (Albumin 25% Inj) 25 gm UNSCH PRN IV 07/31/16 17:45 (NS Flush) 5 ml UNSCH PRN IVF 07/31/16 17:45 08/06/16 14:22 (Heparin Inj) Dwell Heparin to f... UNSCH PRN OTHER 07/31/16 17:45 (Gentamicin (Dialysis) Inj) 10 mg UNSCH PRN OTHER 07/31/16 17:45 08/11/16 11:34 (Gelfoam 12 Mm/7 Mm Top) 1 foam UNSCH PRN TOP 07/31/16 17:45 (Zofran Inj) 4 mg UNSCH PRN IV 07/31/16 17:45 (Benadryl) 25 mg UNSCH PRN PO 07/31/16 17:45 (Nitrostat Sl) 0.4 mg UNSCH PRN SL 07/31/16 17:45 (Catapres) 0.1 mg UNSCH PRN PO 07/31/16 17:45 (Catapres) 0.1 mg Q12HR PO 08/02/16 11:00 08/20/16 08:44 (Norvasc) 10 mg DAILY PO 08/03/16 09:00 08/20/16 08:44 (Vitamin B1) 100 mg DAILY PO 08/02/16 11:00 08/20/16 08:44 (Tessalon) 100 mg TID PRN PO 08/13/16 19:30 08/13/16 20:26 (Lopressor) 12.5 mg Q8HR PRN PO 08/15/16 15:00 08/15/16 15:50 (Ferrous Sulfate) 325 mg BID@,17 PO 08/18/16 17:00 08/20/16 13:38 A/P Problem List: (1) Compartment syndrome of right lower extremity ICD Code: T79.A21A Status: Acute (2) Rhabdomyolysis ICD Code: M62.82 Status: Resolved (3) Severe sepsis ICD Code: A41.9 Status: Resolved (4) Altered mental status ICD Code: R41.82 Status: Resolved (5) Drug overdose ICD Code: T50.901A Status: Resolved (6) Elevated troponin ICD Code: R79.89 Status: Resolved (7) Severe metabolic acidosis Status: Resolved (8) Lactic acidosis ICD Code: E87.2 Status: Resolved (9) Transaminitis ICD Code: R74.0 Status: Acute (10) Hypocalcemia ICD Code: E83.51 Status: Acute (11) Hyperkalemia ICD Code: E87.5 Status: Acute (12) ST elevation ICD Code: R94.31 Status: Acute (13) Acute kidney failure ICD Code: N17.9 Status: Acute (14) Leukocytosis ICD Code: D72.829 Status: Resolved (15) Small right middle lobe consolidation Status: Acute (16) Hip hematoma, right ICD Code: S70.01XA Status: Acute Assessment and Plan Right medial/lateral thigh compartment syndrome L5/S1 spondylolisthesis Status post day [address] Turner - wound VAC placement. Had wound vac changed 08/16/16 08/19/16 for skin graft next week ID: Severe sepsis Escherichia coli UTI -Source likely secondary to right thigh compartment syndrome -Infectious disease following. Small consolidation in the right middle lobe unlikely to be source of severe sepsis, Levaquin and Zosyn stopped for now. Infectious disease following. Previous urine culture grew Escherichia coli. 08/19 Monitor temps and vital signs. /Renal: Acute kidney failure on HD, nephrology following Acute rhabdomyolysis - on normal saline down to 70cc an hour -07/26 renal ultrasound revealed fluid of at poles of bilateral kidneys otherwise negative - Strict intake output. - Urine electrolytes intrinsic renal process/urine eosinophils negative. - Nephrology following. Still making some urine but noted to be decreased by RN. Getting HD - Noted decreased C3 of 19/C4 5, monitor creatinine. 08/19 Stop HD as per nephrology, CARLITO resolving, creatinine trending down and patient continues to have good urine output. Macrocytic anemia Thrombocytopenia 08/07 Acute post op anemia/ acute blood loss anemia. H/H stable fo far, monitor. -Monitor CBC, CMP, - Transfused total 4 units PRBCs, 2 pack platelets, 2 FFP 2 cryo-since admission - Hb 7.3 today. monitor closely. transfuse if <7.0 - Status post transfusion, monitor.. So far H/H stable. Severe Protein calorie malnutrition: Muscle waist. Alb 1.5 . Add ensure to diet. Also on albumin with HD Altered mental status. Resolved. Polysubstance abuse with drug overdose including cocaine/heroin. History of THC use. EtOH use. Counselled. Right upper extremity numbness. Resolving. S/P Liver biopsy by IR 08/13/16 -Watch for alcohol and drug withdrawal, Use PRN Ativan for anxiety and oxycodone /morphine as needed for pain. -CT of the head 07/25 revealed no acute intracranial findings. Continue aspirin , thiamine and multivitamins. -MRI brain 07/29 revealed T2 signal abnormality globus pallidus and mesial temporal lobe bilaterally. - EEG 07/30 revealed slowing system with moderate diffuse encephalopathy. No seizure activity. - Psychiatry clear to [facility] act 07/29 - neurology evaluated the patient and feels that MRI results are from drug overdose. GI getting ophthalmology consult for eval w slit lamp for Bre- Sylvia rings - 08/05 ophtalmology exam negative for Bre-Sylvia rings. Mild Respiratory insufficiency secondary to pneumonia/metabolic acidosis Small consolidation right middle lobe Right basilar pulmonary nodule 3 mm - follow-up CT chest 3 months recommended Ongoing tobaccoism -now on RA, has cough but nonproductive, continue incentive spirometry, duo nebs. -CT chest 07/25 revealed right middle lobe infiltrate along with 3 mm right basilar pulmonary nodule. -Chest x-ray 07/26 reveals no significant cardio pulmonary findings Elevated troponin Severe lactic acidosis - resolved ST elevation in V1 and V2 Sinus tachycardia, Started metoprolol. HR improved. -Continue antibiotics,2d echo revealed EF 60-65%. NRWMA. Lactic acid has cleared on Norvasc 10 mg daily for hypertension, 0.1 mg po BID, with as needed hydralazine and Nitropaste, d/c labetalol BP stable. Continue Norvasc, clonidine. PRN hydralazine and nitropaste. with tachycardia, will repeat ekg, add metoprolol. GI: Transaminitis Rhabdomyolysis Hyperammonia -Transaminitis most likely secondary to shock/rhabdo -CT of the abdomen and pelvis shows fatty liver/21 mm right ovarian cyst -Negative hepatitis panel - Xifaxan 550 twice a day/lactulose 30 3 times a day for elevated ammonia. - Noted low ceruloplasmin. 9. 24 hr Urine copper 24, for liver biopsy on Tuesday - S/P liver biopsy 08/13/16 - showed minimal steatosis. TWISTER TENDER: Right ovarian cyst Beta hCG 1 PROPH: -Left lower extremity SCDs. Hold subcutaneous heparin given drop in hemoglobin. Discharge Planning Continue to monitor in the medical/surgical floor. Problem Qualifiers (1) Drug overdose: Qualified Code: T50.904A - Drug overdose, undetermined intent, initial encounter (2) Acute kidney failure: Qualified Code: N17.9 - Acute renal failure, unspecified acute renal failure type (3) Leukocytosis: Qualified Code: D72.829 - Leukocytosis, unspecified type Daniel Goncalves MD Aug 20, 2016 17:43
--- NOTE | 2016-08-20 19:06 | HHI.NPPN ---
Subjective History of Present Illness 30 year old female with drug OD, Rt thigh compartment syndrome s/p Fasciotomy, Rhabdomyolysis, ARF Additional Remarks Patient is alert, no SOB, eating better, feeling well. Review of Systems General Constitutional: Fatigue Musculoskeletal MS: Pain/Stiffness Objective Data Data 08/19/16 08/20/16 18:59 06:59 Intake Total 600 ml 640 ml Output Total 100 ml Balance 600 ml 540 ml Intake Oral 600 ml 640 ml IV Total 0 ml Drainage Total 100 ml # Voids 2 3 # Bowel Movements 0 0 Vital Signs Date Time Temp Pulse Resp B/P Pulse Ox O2 Delivery O2 Flow Rate FiO2 08/20/16 16:00 98.3 92 17 117/69 99 08/20/16 12:00 98.6 76 17 104/74 98 08/20/16 08:00 99.0 75 17 111/78 96 08/20/16 04:00 98.0 72 18 121/79 99 08/20/16 00:00 98.4 76 18 119/74 98 08/19/16 20:00 99.3 93 18 107/68 97 08/19/16 19:29 83 -: 08/20/16 0325 08/20/16 0325 Physical Exam General Appearance: No Acute Distress, Comfortable Neck Neck Exam: Neck Supple Pulmonary Resp Exam: Clear Bilaterally, Breath Sounds Equal Cardiology CV Exam: Regular, Normal Sinus Rhythm Gastrointestinal/Abdomen GI Exam: Soft, Non-Tender, Bowel Sounds Present Extremeties Extremities Exam: Trace Edema Neurologic Neuro Exam: Alert, Awake Assessment/Plan Problem List: (1) Acute kidney failure Plan: This is likely due to rhabdomyolysis and acute tubular necrosis Urine out put is better. BUN and Creatinine continue to improve. will get Vascath removed in AM. (2) Compartment syndrome of right lower extremity Plan: Status post surgery (3) UTI (urinary tract infection) Plan: treated (4) Severe sepsis Plan: Status post fasciotomy right leg S/P liver biopsy Problem Qualifiers (1) Acute kidney failure: Qualified Code: N17.9 - Acute renal failure, unspecified acute renal failure type Last Romero MD Aug 20, 2016 19:06
[2016-08-21] VITALS (7 sets, daily range): BP systolic 106–131; BP diastolic 72–77; PULSE 68–90; RESP 16–20; TEMP 97.9–99.1; O2SAT 97–99
[2016-08-21] MEDS: CHLORHEXIDINE GLUCONATE 2 % 1 PACK (2 CLOTHS) TOP SCH (04:00)
--- NOTE | 2016-08-21 07:40 | PD.CARD.PN ---
Subjective Subjective Remarks alert in nad Objective Vital Signs / I&O Vital Signs Date Time Temp Pulse Resp B/P Pulse Ox O2 Delivery O2 Flow Rate FiO2 08/21/16 04:00 97.9 76 16 111/74 98 08/21/16 00:00 98.1 69 16 112/73 97 08/20/16 21:05 16 08/20/16 20:05 93 08/20/16 20:00 98.0 93 18 145/85 96 08/20/16 16:00 98.3 92 17 117/69 99 08/20/16 12:00 98.6 76 17 104/74 98 08/20/16 08:00 99.0 75 17 111/78 96 I/O 08/20/16 08/20/16 08/20/16 08/21/16 08/21/16 08/21/16 06:59 14:59 22:59 06:59 14:59 22:59 Intake Total 320 ml 240 ml 480 ml Output Total 50 ml 50 ml 75 ml Balance 270 ml -50 ml 240 ml 405 ml Intake Oral 320 ml 240 ml 480 ml IV Total 0 ml Drainage Total 50 ml 50 ml 75 ml # Voids 2 1 1 2 # Bowel Movements 0 1 0 1 # Sanitary Pads 1 Pads Physical Exam GENERAL: SKIN: Warm and dry. HEAD: Normocephalic. EYES: No scleral icterus. No injection or drainage. NECK: Supple, trachea midline. No JVD or lymphadenopathy. CARDIOVASCULAR: Regular rate and rhythm without murmurs, gallops, or rubs. RESPIRATORY: Breath sounds equal bilaterally. No accessory muscle use. GASTROINTESTINAL: Abdomen soft, non-tender, nondistended. MUSCULOSKELETAL: No cyanosis, or edema. BACK: Nontender without obvious deformity. No CVA tenderness. GENERAL: SKIN: Warm and dry. HEAD: Normocephalic. EYES: No scleral icterus. No injection or drainage. NECK: Supple, trachea midline. No JVD or lymphadenopathy. CARDIOVASCULAR: Regular rate and rhythm without murmurs, gallops, or rubs. RESPIRATORY: Breath sounds equal bilaterally. No accessory muscle use. GASTROINTESTINAL: Abdomen soft, non-tender, nondistended. MUSCULOSKELETAL: No cyanosis, or edema. BACK: Nontender without obvious deformity. No CVA tenderness. Assessment and Plan Problem List: (1) Drug overdose (2) Hypocalcemia (3) SIRS (systemic inflammatory response syndrome) (4) Renal failure (5) Hyperkalemia (6) Lactic acidosis (7) Altered mental status (8) Severe sepsis (9) Elevated troponin (10) Severe metabolic acidosis (11) Acute kidney failure (12) Leukocytosis (13) Hip hematoma, right (14) Small right middle lobe consolidation (15) Rhabdomyolysis (16) Compartment syndrome of right lower extremity Assessment and Plan 1.) Elevated troponin - suspect d/t global hypoperfusion d/t hypotension form sepsis, ef=65%, patient is assymptomatic, trop < 1, on aspirin 325 mg qd, d/t arf lhc/pci would be high risk for deterioration in renal function and potential need for temporary or permanent dialysis 2.) POD 1 - hemodynamically stable 3.) ARF - d/t rhabdomyolysis from compartment syndrome, dr Fletcher following 4.) HTN - started on amlodipine 10 mg qd 5.) RLE pain - slight improvement 6.) Anemia - improved s/p transfusion 7.) Will sign off, reconsult prn Problem Qualifiers (1) Drug overdose: Qualified Code: T50.904A - Drug overdose, undetermined intent, initial encounter (2) Acute kidney failure: Qualified Code: N17.9 - Acute renal failure, unspecified acute renal failure type (3) Leukocytosis: Qualified Code: D72.829 - Leukocytosis, unspecified type Luis Eduardo Carter MD Aug 21, 2016 07:40
[2016-08-21] MEDS: FAMOTIDINE 20 MG TAB PO SCH ×2 (08:41→20:25)
[2016-08-21] MEDS: LACTULOSE SYRUP 20 GM/30 ML CUP PO SCH ×2 (08:41→20:25)
[2016-08-21] MEDS: SODIUM CHLORIDE 0.9% FLUSH 5 ML FLUSH IV FLUSH SCH ×2 (08:41→20:25)
[2016-08-21] MEDS: ASPIRIN EC 325 MG TABEC PO SCH (08:41)
[2016-08-21] MEDS: FOLIC ACID 1 MG TAB PO SCH (08:41)
[2016-08-21] MEDS: RIFAXIMIN 550 MG TAB PO SCH ×2 (08:41→20:25)
[2016-08-21] MEDS: MULTIVITAMIN TAB PO SCH (08:41)
[2016-08-21] MEDS: THIAMINE HCL 100 MG TAB PO SCH (08:42)
[2016-08-21] MEDS: cloNIDine HCL 0.1 MG TAB PO SCH ×2 (08:42→20:25)
--- NOTE | 2016-08-21 11:25 | PD.CAR.PN ---
CVT Progress Note Subjective/Hospital Course: Patient with clinical findings of medial and lateral thigh compartment syndrome For OR now Thanks Delaney 07/26/16 Patient underwent yesterday and medial and lateral fasciotomy of the thigh debridement Today she underwent washout the both, closure of the medial fasciotomy skin and wound VAC placement on lateral fasciotomy The lateral fasciotomy will need wound VAC for but 2 weeks and then this can be covered with the partial-thickness skin graft by plastic surgery 07/27/16 Status post the thigh compartment syndrome with medial and lateral fasciotomy of the right leg Yesterday patient went for washout closure and drainage of the medial fasciotomy site while the lateral fasciotomy from hip to the knee remains open Wound VAC in place Hemoglobin now stable and there is no other source of bleeding Patient was in active DIC and fibrinolysis for the first 48 hours and this is now abating Agree with blood and blood products administration Platelets remain stable and unless these drop on the 30,000 would probably not transfuse Patient can be out of bed and should be bearing weight on this leg as much as possible 07/28/16 CHAZ drainage from the medial closure of the thighs decreased but I will leave it in till the swelling decreases and the third space abates for otherwise patient will develop a seroma in this area Lateral incision now covered with a wound VAC is draining minimally Hemoglobin remains stable Plan Starting tomorrow will have wound care assist with changing wound VAC at the bedside and I will consult plastic surgery for grafting of the wound in the near future 07/29/16 Medial compartment is closed and drainage is minimal so we will DC CHAZ Lateral thigh compartment is open clean and we will start wound VAC changes today Eventually patient will go to the OR for another washout and perhaps little more closure of this area but for the most part she will need a skin grafting of this area 07/30/2016 Medial incision is clean and dry Lateral incision wound VAC has been changed yesterday and he looks nice and clean and granulating nicely Patient will need several wound VAC exchange to before graft can be placed in this area Continue care Patient can transfer to the floor from my point 08/05/16 The patient will undergo tomorrow placement of acellular matrix xenograft in the operating room Wound VAC will then remain on it for about 10 days and then after that patient can be grafted This procedure should take about 30 minutes and then patient will be able to go to rehabilitation or even [place] for about 10 days and then return to us for grafting 08/07/16 Patient underwent yesterday washout of her fasciotomy site of the right thigh with placement of a acellular xenograft to improve granulation and the allow for eventual partial-thickness skin graft placement The drainage from the wound VAC at this point will be copious considering the inflammatory reaction that the xenograft induces so this is expected. In addition patient dropped hemoglobin and will be given 2 units of blood The wound VAC will stay on for about 9 days at this point so patient can either stay in our hospital or be transferred possibly to [place] till the time comes to remove the wound VAC for it will have to be done in the operating room At that time area will be ready for grafting or he may need another 10 days of xenograft is a granulation is not sufficient I will consult Dr. Juares to see the patient for skin grafting when the time comes 08/10/16 Wound VAC is in position and drainage has now significantly decreased Patient is excellent distal pulses and leg is warm Patient could move to [place] from my point till the time comes to remove the wound VAC is another week Nothing to add to care let this time 08/12/16 Patient doing well at this time Drainage from the wound VAC is minimal Patient will be taken back to the operating room on Tuesday for evaluation and washout with possible grafting Patient may need another 9 or 10 days of the acellular matrix depending on the granulation tissue present next week or may be graftable next week We'll consult Dr. Juares for the grafting 08/17/16 Patient underwent yesterday washout reapplication off acellular matrix with placement of the wound VAC Incisions are clean and dry, stitches have been removed proximal and distal to the fasciotomy defect and fasciotomies covered with the above mentioned wound VAC Serosanguineous drainage By next week patient will be ready for skin grafting and Dr. Juares will be consulted 08/18/[address] with serosanguineous drainage Patient states she has no pain in this leg anymore Excellent distal flow Grafting next week 08/21/16 Wound VAC in position and serosanguineous drainage Hemoglobin remains stable I've consult the plastic surgery for grafting but was told that there was no plastic surgery coverage yesterday so the consult will go to the next plastic surgeon funeral home location manager which is fine with me Patient will need a partial-thickness skin graft on the fasciotomy site of the right thigh, based on plastic surgeons opinion and expert consultation Objective: Vital Signs Date Time Temp Pulse Resp B/P Pulse Ox O2 Delivery O2 Flow Rate FiO2 08/21/16 09:26 75 08/21/16 08:00 99.1 82 16 120/77 98 08/21/16 04:00 97.9 76 16 111/74 98 08/21/16 00:00 98.1 69 16 112/73 97 08/20/16 21:05 16 08/20/16 20:05 93 08/20/16 20:00 98.0 93 18 145/85 96 08/20/16 16:00 98.3 92 17 117/69 99 08/20/16 12:00 98.6 76 17 104/74 98 Result Diagram: 08/20/16 0325 08/20/16 0325 (1) Drug overdose (2) Hypocalcemia (3) SIRS (systemic inflammatory response syndrome) (4) Renal failure (5) Hyperkalemia (6) Lactic acidosis (7) Altered mental status (8) Severe sepsis (9) Elevated troponin (10) Severe metabolic acidosis (11) Acute kidney failure (12) Leukocytosis (13) Hip hematoma, right (14) Small right middle lobe consolidation (15) Rhabdomyolysis (16) Compartment syndrome of right lower extremity Problem Qualifiers (1) Drug overdose: Qualified Code: T50.904A - Drug overdose, undetermined intent, initial encounter (2) Acute kidney failure: Qualified Code: N17.9 - Acute renal failure, unspecified acute renal failure type (3) Leukocytosis: Qualified Code: D72.829 - Leukocytosis, unspecified type Saw Turner MD Aug 21, 2016 11:25
--- NOTE | 2016-08-21 11:39 | HHI.PR ---
Subjective Remarks patient seems depressed does not seem very eager to answer my questions denies cp/sob denies fevers/chills no diarrhea Objective Vitals Vital Signs Date Time Temp Pulse Resp B/P Pulse Ox O2 Delivery O2 Flow Rate FiO2 08/21/16 09:26 75 08/21/16 08:00 99.1 82 16 120/77 98 08/21/16 04:00 97.9 76 16 111/74 98 08/21/16 00:00 98.1 69 16 112/73 97 08/20/16 21:05 16 08/20/16 20:05 93 08/20/16 20:00 98.0 93 18 145/85 96 08/20/16 16:00 98.3 92 17 117/69 99 08/20/16 12:00 98.6 76 17 104/74 98 I/O 08/20/16 08/20/16 08/20/16 08/21/16 08/21/16 08/21/16 07:00 15:00 23:00 07:00 15:00 23:00 Intake Total 320 ml 240 ml 480 ml Output Total 50 ml 50 ml 75 ml Balance 270 ml -50 ml 240 ml 405 ml Intake Oral 320 ml 240 ml 480 ml IV Total 0 ml Drainage Total 50 ml 50 ml 75 ml # Voids 2 1 1 2 # Bowel Movements 0 1 0 1 # Sanitary Pads 1 Pads Result Diagram: 08/20/16 0325 08/20/16 0325 Imaging Last Impressions Liver Biopsy CT 08/13/16 0000 Signed Impressions: Service Date/Time: Saturday, August 13, 2016 12:42 - CONCLUSION: Uncomplicated CT guided biopsy. Raymundo Agarwal MD Chest X-Ray 08/09/16 0000 Signed Impressions: Service Date/Time: Tuesday, August 09, 2016 19:30 - CONCLUSION: 1. Interval placement of double-lumen central venous line. 2. Hazy opacity at the lung bases with mild blunting of the left costophrenic angle which could indicate a small effusion. Nael Zuñiga MD Catheter Placement X-Ray 07/30/16 0000 Signed Impressions: Service Date/Time: Saturday, July 30, 2016 14:14 - CONCLUSION: Uncomplicated line placement as above. Judson Cee MD Brain MRI 07/29/16 0000 Signed Impressions: Service Date/Time: July 13:34 - CONCLUSION: 1. Abnormal examination of the brain demonstrating areas of T2 signal and abnormal diffusion signal involving the globus pallidus bilaterally and the mesial temporal lobes bilaterally. Primary considerations would include carbon monoxide poisoning versus other partial anoxic brain injury. Please see above discussion. Aamir Narayanan MD Abdomen Ultrasound 07/26/16 Signed Impressions: Service Date/Time: Tuesday, July 26, 2016 10:21 - CONCLUSION: 1. Small amount of free fluid adjacent to the lower poles of both kidneys. 2. Obscuration of the head of the pancreas, distal IVC and aorta due to overlying bowel gas. 3. Otherwise negative. Judson Cee MD Lower Extremity CT 07/25/16 0000 Signed Impressions: Service Date/Time: Monday, July 25, 2016 18:54 - CONCLUSION: Extensive nonspecific myositis of the right thigh, also involves gluteus medius and minimus proximally and at least medial gastrocnemius below the knee. Infectious/inflammatory and ischemic etiologies would be in the differential. No gas bubbles are seen to substantiate necrotizing fasciitis. No organized/drainable abscess. Glenroy Sheffield MD Hip and Pelvis X-Ray 07/25/16 Signed Impressions: Service Date/Time: Monday, July 25, 2016 16:52 - CONCLUSION: Intact pelvis and right hip. Nonspecific surrounding soft tissue swelling Glenroy Sheffield MD Head CT 07/25/16 0000 Signed Impressions: Service Date/Time: Monday, July 25, 2016 14:38 - CONCLUSION: Negative noncontrast head CT. Glenroy Sheffield MD Chest CT 07/25/16 0000 Signed Impressions: Service Date/Time: Monday, July 25, 2016 16:37 - CONCLUSION: Focal dense consolidation right middle lobe, nonspecific but most likely infectious or inflammatory. Also a 3 mm right basilar pulmonary nodule Followup noncontrast chest CT in a few months recommended to confirm resolution/stability. Glenroy Sheffield MD Abdomen/Pelvis CT 07/25/16 0000 Signed Impressions: Service Date/Time: Monday, July 25, 2016 16:37 - CONCLUSION: 1. Fatty liver and 21 mm right ovarian cyst. Otherwise, no acute abnormality seen within the abdomen or pelvis. 2. Swollen, heterogeneous right hip musculature, primarily gluteus medius and minimus, rectus femoris and vastus lateralis and the adductor muscles. This is nonspecific but suggests a subacute hematoma of these structures. Nothing organized/measurable. 3. Chronic L5 pars defects with grade 2 L5/S1 spondylolisthesis. Glenroy Sheffield MD Objective Remarks GENERAL: 30-year-old female. Critically ill currently resting in bed in no acute distress CARDIOVASCULAR: RRR Faint systolic 2/6 murmur RESPIRATORY: clear to auscultation w no wheezing this morning. GASTROINTESTINAL: Abdomen soft, non-tender, nondistended. Hypoactive bowel sounds. Abrasions. MUSCULOSKELETAL: Right thigh currently with wound VAC lateral aspect. Right hip tender with restricted mobility. Positive peripheral edema right greater than left lower extremity. NEUROLOGICAL: Awake and alert to person, place and year. Motor grossly within normal limits. Procedures Status post right leg washout, xenograft placement and partial wound closure on 08/06. Medications and IVs Current Medications Medications (Trade) Dose Ordered Sig/Sara Route Start Time Stop Time Status Last Admin (NS Flush) 2 ml UNSCH PRN IV FLUSH 07/25/16 16:15 08/04/16 05:10 (NS Flush) 2 ml BID IV FLUSH 07/25/16 21:00 08/21/16 08:41 Miscellaneous Information 1 Q361D XX 07/25/16 16:15 (Chlorhexidine 2% Cloth) Taper DAILY@04 TOP 07/26/16 04:00 07/22/17 03:59 07/30/16 04:00 (Chlorhexidine 2% Cloth) 3 pack UNSCH PRN TOP 07/25/16 16:15 (Ecotrin Ec) 325 mg DAILY PO 07/26/16 09:00 08/21/16 08:41 (Morphine Inj) 4 mg Q2H PRN IV 07/25/16 23:45 08/15/16 07:49 (Theragran) 1 tab DAILY PO 07/26/16 09:00 08/21/16 08:41 (Folate) 1 mg DAILY PO 07/26/16 09:00 08/21/16 08:41 (Zofran Inj) 4 mg Q6H PRN IV 07/26/16 08:00 07/29/16 04:18 (D50w (Vial) Inj) 25 ml UNSCH PRN IV PUSH 07/26/16 08:15 (Glucagon Inj) 1 mg UNSCH PRN OTHER 07/26/16 08:15 (Xifaxan) 550 mg BID PO 07/26/16 10:00 08/21/16 08:41 (Apresoline Inj) 10 mg Q1HR PRN IV PUSH 07/28/16 09:30 08/01/16 09:30 (Nitroglycerin 2% Oint) 1 inch Q6H PRN TOPICAL 07/28/16 09:30 (Pepcid) 10 mg BID PO 07/29/16 09:00 08/21/16 08:41 (Pill Splitter) 1 ea UNSCH PRN OTHER 07/29/16 09:00 (Roxicodone) 5 mg Q6H PRN PO 07/29/16 09:00 08/21/16 08:42 (Lactulose Liq) 30 ml BID PO 07/30/16 21:00 08/21/16 08:41 (NS Flush) UNSCH PRN IVF 07/30/16 16:15 Heparin Sodium (Porcine) UNSCH PRN IVF 07/30/16 16:15 08/11/16 11:35 (NS 1000 ml Inj) 1,000 ml @ 0 mls/hr TITRATE PRN IV 07/31/16 17:45 08/09/16 10:39 (Heparin Inj) 8,000 units UNSCH PRN IV FLUSH 07/31/16 17:45 08/04/16 10:10 Heparin Sodium (Porcine) 1000 units 1,000 units Q1H PRN IV FLUSH 07/31/16 17:45 08/09/16 10:41 Sodium Chloride 1,000 ml @ 200 mls/hr Q5H PRN IV 07/31/16 17:45 08/02/16 12:45 (NS 250 ml Inj) 200 ml @ 0 mls/hr UNSCH PRN IV 07/31/16 17:45 (Mannitol Inj) 12.5 gm UNSCH PRN IV 07/31/16 17:45 (Albumin 25% Inj) 25 gm UNSCH PRN IV 07/31/16 17:45 (NS Flush) 5 ml UNSCH PRN IVF 07/31/16 17:45 08/06/16 14:22 (Heparin Inj) Dwell Heparin to f... UNSCH PRN OTHER 07/31/16 17:45 (Gentamicin (Dialysis) Inj) 10 mg UNSCH PRN OTHER 07/31/16 17:45 08/11/16 11:34 (Gelfoam 12 Mm/7 Mm Top) 1 foam UNSCH PRN TOP 07/31/16 17:45 (Zofran Inj) 4 mg UNSCH PRN IV 07/31/16 17:45 (Benadryl) 25 mg UNSCH PRN PO 07/31/16 17:45 (Nitrostat Sl) 0.4 mg UNSCH PRN SL 07/31/16 17:45 (Catapres) 0.1 mg UNSCH PRN PO 07/31/16 17:45 (Catapres) 0.1 mg Q12HR PO 08/02/16 11:00 08/21/16 08:42 (Norvasc) 10 mg DAILY PO 08/03/16 09:00 08/21/16 08:41 (Vitamin B1) 100 mg DAILY PO 08/02/16 11:00 08/21/16 08:42 (Tessalon) 100 mg TID PRN PO 08/13/16 19:30 08/13/16 20:26 (Lopressor) 12.5 mg Q8HR PRN PO 08/15/16 15:00 08/15/16 15:50 (Ferrous Sulfate) 325 mg BID@,17 PO 08/18/16 17:00 08/20/16 17:56 A/P Problem List: (1) Compartment syndrome of right lower extremity ICD Code: T79.A21A Status: Acute (2) Rhabdomyolysis ICD Code: M62.82 Status: Resolved (3) Severe sepsis ICD Code: A41.9 Status: Resolved (4) Altered mental status ICD Code: R41.82 Status: Resolved (5) Drug overdose ICD Code: T50.901A Status: Resolved (6) Elevated troponin ICD Code: R79.89 Status: Resolved (7) Severe metabolic acidosis Status: Resolved (8) Lactic acidosis ICD Code: E87.2 Status: Resolved (9) Transaminitis ICD Code: R74.0 Status: Acute (10) Hypocalcemia ICD Code: E83.51 Status: Acute (11) Hyperkalemia ICD Code: E87.5 Status: Acute (12) ST elevation ICD Code: R94.31 Status: Acute (13) Acute kidney failure ICD Code: N17.9 Status: Acute (14) Leukocytosis ICD Code: D72.829 Status: Resolved (15) Small right middle lobe consolidation Status: Acute (16) Hip hematoma, right ICD Code: S70.01XA Status: Acute Assessment and Plan Right medial/lateral thigh compartment syndrome L5/S1 spondylolisthesis Status post day [address] Turner - wound VAC placement. Had wound vac changed 08/16/16 08/19/16 for skin graft next week ID: Severe sepsis Escherichia coli UTI -Source likely secondary to right thigh compartment syndrome -Infectious disease following. Small consolidation in the right middle lobe unlikely to be source of severe sepsis, Levaquin and Zosyn stopped for now. Infectious disease following. Previous urine culture grew Escherichia coli. 08/19 Monitor temps and vital signs. /Renal: Acute kidney failure on HD, nephrology following Acute rhabdomyolysis - on normal saline down to 70cc an hour -07/26 renal ultrasound revealed fluid of at poles of bilateral kidneys otherwise negative - Strict intake output. - Urine electrolytes intrinsic renal process/urine eosinophils negative. - Nephrology following. Still making some urine but noted to be decreased by RN. Getting HD - Noted decreased C3 of 19/C4 5, monitor creatinine. 08/19 Stop HD as per nephrology, CARLITO resolving, creatinine trending down and patient continues to have good urine output. Macrocytic anemia Thrombocytopenia 08/07 Acute post op anemia/ acute blood loss anemia. H/H stable fo far, monitor. -Monitor CBC, CMP, - Transfused total 4 units PRBCs, 2 pack platelets, 2 FFP 2 cryo-since admission - Hb 7.3 today. monitor closely. transfuse if <7.0 - Status post transfusion, monitor.. So far H/H stable. Severe Protein calorie malnutrition: Muscle waist. Alb 1.5 . Add ensure to diet. Also on albumin with HD Altered mental status. Resolved. Polysubstance abuse with drug overdose including cocaine/heroin. History of THC use. EtOH use. Counselled. Right upper extremity numbness. Resolving. S/P Liver biopsy by IR 08/13/16 -Watch for alcohol and drug withdrawal, Use PRN Ativan for anxiety and oxycodone /morphine as needed for pain. -CT of the head 07/25 revealed no acute intracranial findings. Continue aspirin , thiamine and multivitamins. -MRI brain 07/29 revealed T2 signal abnormality globus pallidus and mesial temporal lobe bilaterally. - EEG 07/30 revealed slowing system with moderate diffuse encephalopathy. No seizure activity. - Psychiatry clear to [place] act 07/29 - neurology evaluated the patient and feels that MRI results are from drug overdose. GI getting ophthalmology consult for eval w slit lamp for Bre- Sylvia rings - 08/05 ophtalmology exam negative for Bre-Sylvia rings. Mild Respiratory insufficiency secondary to pneumonia/metabolic acidosis Small consolidation right middle lobe Right basilar pulmonary nodule 3 mm - follow-up CT chest 3 months recommended Ongoing tobaccoism -now on RA, has cough but nonproductive, continue incentive spirometry, duo nebs. -CT chest 07/25 revealed right middle lobe infiltrate along with 3 mm right basilar pulmonary nodule. -Chest x-ray 07/26 reveals no significant cardio pulmonary findings Elevated troponin Severe lactic acidosis - resolved ST elevation in V1 and V2 Sinus tachycardia, Started metoprolol. HR improved. -Continue antibiotics,2d echo revealed EF 60-65%. NRWMA. Lactic acid has cleared on Norvasc 10 mg daily for hypertension, 0.1 mg po BID, with as needed hydralazine and Nitropaste, d/c labetalol BP stable. Continue Norvasc, clonidine. PRN hydralazine and nitropaste. Continue metoprolol - tachycardia improved. GI: Transaminitis Rhabdomyolysis Hyperammonia -Transaminitis most likely secondary to shock/rhabdo -CT of the abdomen and pelvis shows fatty liver/21 mm right ovarian cyst -Negative hepatitis panel - Xifaxan 550 twice a day/lactulose 30 3 times a day for elevated ammonia. - Noted low ceruloplasmin. 9. 24 hr Urine copper 24, for liver biopsy on Tuesday - S/P liver biopsy 08/13/16 - showed minimal steatosis. [employer]: Right ovarian cyst Beta hCG 1 PROPH: -Left lower extremity SCDs. Hold subcutaneous heparin given drop in hemoglobin. Discharge Planning Continue to monitor in the medical/surgical floor. Problem Qualifiers (1) Drug overdose: Qualified Code: T50.904A - Drug overdose, undetermined intent, initial encounter (2) Acute kidney failure: Qualified Code: N17.9 - Acute renal failure, unspecified acute renal failure type (3) Leukocytosis: Qualified Code: D72.829 - Leukocytosis, unspecified type Daniel Goncalves MD Aug 21, 2016 11:39
--- NOTE | 2016-08-21 12:13 | HHI.NPPN ---
Subjective History of Present Illness 30 year old female with drug OD, Rt thigh compartment syndrome s/p Fasciotomy, Rhabdomyolysis, ARF Additional Remarks Patient is alert, no SOB, eating better, feeling well. Review of Systems General Constitutional: Fatigue Musculoskeletal MS: Pain/Stiffness Objective Data Data 08/20/16 08/21/16 19:00 07:00 Intake Total 720 ml Output Total 50 ml 75 ml Balance -50 ml 645 ml Intake Oral 720 ml Drainage Total 50 ml 75 ml # Voids 1 3 # Bowel Movements 1 1 # Sanitary Pads 1 Pads Vital Signs Date Time Temp Pulse Resp B/P Pulse Ox O2 Delivery O2 Flow Rate FiO2 08/21/16 12:00 98.0 68 16 131/72 97 08/21/16 09:26 75 08/21/16 08:00 99.1 82 16 120/77 98 08/21/16 04:00 97.9 76 16 111/74 98 08/21/16 00:00 98.1 69 16 112/73 97 08/20/16 21:05 16 08/20/16 20:05 93 08/20/16 20:00 98.0 93 18 145/85 96 08/20/16 16:00 98.3 92 17 117/69 99 -: 08/20/16 0325 08/20/16 0325 Physical Exam General Appearance: No Acute Distress, Comfortable Neck Neck Exam: Neck Supple Pulmonary Resp Exam: Clear Bilaterally, Breath Sounds Equal Cardiology CV Exam: Regular, Normal Sinus Rhythm Gastrointestinal/Abdomen GI Exam: Soft, Non-Tender, Bowel Sounds Present Extremeties Extremities Exam: Trace Edema Neurologic Neuro Exam: Alert, Awake Assessment/Plan Problem List: (1) Acute kidney failure Plan: This is likely due to rhabdomyolysis and acute tubular necrosis Urine out put is better. BUN and Creatinine continue to improve. No BMP today, D/C Vascath. Follow the urine out put and BMP. (2) Compartment syndrome of right lower extremity Plan: Status post surgery (3) UTI (urinary tract infection) Plan: treated (4) Severe sepsis Plan: Status post fasciotomy right leg S/P liver biopsy Problem Qualifiers (1) Acute kidney failure: Qualified Code: N17.9 - Acute renal failure, unspecified acute renal failure type Last Romero MD Aug 21, 2016 12:13
[2016-08-21] MEDS: FERROUS SULFATE 325 MG (65 MG ELEMENTAL IRON) TAB PO SCH ×2 (12:49→15:56)
[2016-08-22] VITALS (8 sets, daily range): BP systolic 111–120; BP diastolic 68–80; PULSE 75–98; RESP 16–20; TEMP 96.6–98.7; O2SAT 97–98
[2016-08-22] MEDS: CHLORHEXIDINE GLUCONATE 2 % 1 PACK (2 CLOTHS) TOP SCH (04:00)
--- NOTE | 2016-08-22 05:24 | MB ---
cc: MICHAEL GARCIA M.D. DATE OF CONSULTATION: 08/22/2016 REASON FOR CONSULTATION: Right thigh large wound with wound Vac, for possible skin graft. HISTORY This is a 30-year-old white female admitted on July 25, 2016, through the emergency room at [facility]. She apparently came in for drug overdose status including marijuana and cocaine, and very tight compartment syndrome. She underwent emergency medical and also had treatment for severe acidosis, rhabdomyolysis and drug treatment. The patient has been stabilized now. She has had four surgeries on the right thigh. The wound has been stable. There is an acellular dermal matrix in place over the muscle. The patient does not seem to have a good recall as to how the wound Vac has been changed. She does not even remember if the wound Vac had been changed in the hospital floor room, other than in the operating room. Also on the records there is no clear mention of who is doing the wound Vac dressing and how many times it has been changed. There are a couple of assessment notes done by the wound care nurse which shows about 30% granulation as of Jul 29, 2016, the current status of the wound is not clearly documented. PAST MEDICAL HISTORY: Negative. ALLERGIES: NONE. MEDICATIONS: Listed in the chart. LABORATORY DATA: There are some cultures done on the urine, blood and sputum, however, there is no wound culture report noted on the microbiology section. PHYSICAL EXAMINATION: Reveals a 30 year-old white female in the hospital bed setting. She is overall comfortable and seems to be able to move around. There may be some degree of tremors noted as well. GENERAL: Grossly in acceptable range. The patient does not seem to be agitated or anxious. She is conversing normally. The right thigh examination shows a large wound Vac in place on the upper half of the thigh going as far as towards as the hip joint and situated mostly anterolaterally. The thigh at this point is approximately 14 cm across, however, the actual wound may be smaller on the inside. The patient was told of her current medical findings and the possibility that the underlying wound may now be granulating, in which the skin graft from the opposite thigh using the dermatome may be able to allow early healing. If there is an indication of necrotic tissue in the wound or drainage, or possible infection going on at this time, the skin graft may have to be delayed. The patient was advised that I will try to coordinate my next visit with the wound care nursing when they are ready to replace the wound Vac. If it can be done over this holiday weekend, I will be available. If it needs to be done in the operating room, I will go ahead and help with scheduling after tomorrow. signed, not fully reviewed MD ISABEL Coleman/IRVING /4:05 AM /4:20 AM OTTONIEL
--- NOTE | 2016-08-22 06:51 | HHI.PR ---
Subjective Remarks Follow up for medial and lateral thigh compartment syndrome s/p surgery. Ms. Sahu is doing well. No acute concerns. Denies any chest pain, SOB, fever, chills. Per RN, wound vac change is supposed to occur today. Patient is off dialysis. Vascath removed. Objective Vitals Vital Signs Date Time Temp Pulse Resp B/P Pulse Ox O2 Delivery O2 Flow Rate FiO2 08/22/16 04:00 97.9 79 20 120/80 98 08/22/16 00:00 98.6 77 20 113/72 98 08/21/16 20:00 98.0 90 20 106/77 99 08/21/16 16:00 98.2 78 16 111/76 98 08/21/16 12:00 98.0 68 16 131/72 97 08/21/16 09:26 75 08/21/16 08:00 99.1 82 16 120/77 98 I/O 08/21/16 08/21/16 08/21/16 08/22/16 08/22/16 08/22/16 07:00 15:00 23:00 07:00 15:00 23:00 Intake Total 480 ml 360 ml 480 ml 240 ml Output Total 75 ml Balance 405 ml 360 ml 480 ml 240 ml Intake Oral 480 ml 360 ml 480 ml 240 ml IV Total 0 ml 0 ml Drainage Total 75 ml # Voids 2 2 1 2 # Bowel Movements 1 0 Result Diagram: 08/20/16 0325 08/20/16 0325 Imaging Last Impressions Liver Biopsy CT 08/13/16 0000 Signed Impressions: Service Date/Time: Saturday, August 13, 2016 12:42 - CONCLUSION: Uncomplicated CT guided biopsy. Raymundo Agarwal MD Chest X-Ray 08/09/16 0000 Signed Impressions: Service Date/Time: Tuesday, August 09, 2016 19:30 - CONCLUSION: 1. Interval placement of double-lumen central venous line. 2. Hazy opacity at the lung bases with mild blunting of the left costophrenic angle which could indicate a small effusion. Nael Zuñiga MD Catheter Placement X-Ray 07/30/16 0000 Signed Impressions: Service Date/Time: Saturday, July 30, 2016 14:14 - CONCLUSION: Uncomplicated line placement as above. Judson Cee MD Brain MRI 07/29/16 0000 Signed Impressions: Service Date/Time: July 13:34 - CONCLUSION: 1. Abnormal examination of the brain demonstrating areas of T2 signal and abnormal diffusion signal involving the globus pallidus bilaterally and the mesial temporal lobes bilaterally. Primary considerations would include carbon monoxide poisoning versus other partial anoxic brain injury. Please see above discussion. Aamir Narayanan MD Abdomen Ultrasound 07/26/16 Signed Impressions: Service Date/Time: Tuesday, July 26, 2016 10:21 - CONCLUSION: 1. Small amount of free fluid adjacent to the lower poles of both kidneys. 2. Obscuration of the head of the pancreas, distal IVC and aorta due to overlying bowel gas. 3. Otherwise negative. Judson Cee MD Lower Extremity CT 07/25/16 Signed Impressions: Service Date/Time: Monday, July 25, 2016 18:54 - CONCLUSION: Extensive nonspecific myositis of the right thigh, also involves gluteus medius and minimus proximally and at least medial gastrocnemius below the knee. Infectious/inflammatory and ischemic etiologies would be in the differential. No gas bubbles are seen to substantiate necrotizing fasciitis. No organized/drainable abscess. Glenroy Sheffield MD Hip and Pelvis X-Ray 07/25/16 Signed Impressions: Service Date/Time: Monday, July 25, 2016 16:52 - CONCLUSION: Intact pelvis and right hip. Nonspecific surrounding soft tissue swelling Glenroy Sheffield MD Head CT 07/25/16 0000 Signed Impressions: Service Date/Time: Monday, July 25, 2016 14:38 - CONCLUSION: Negative noncontrast head CT. Glenroy Sheffield MD Chest CT 07/25/16 0000 Signed Impressions: Service Date/Time: Monday, July 25, 2016 16:37 - CONCLUSION: Focal dense consolidation right middle lobe, nonspecific but most likely infectious or inflammatory. Also a 3 mm right basilar pulmonary nodule Followup noncontrast chest CT in a few months recommended to confirm resolution/stability. Glenroy Sheffield MD Abdomen/Pelvis CT 07/25/16 0000 Signed Impressions: Service Date/Time: Monday, July 25, 2016 16:37 - CONCLUSION: 1. Fatty liver and 21 mm right ovarian cyst. Otherwise, no acute abnormality seen within the abdomen or pelvis. 2. Swollen, heterogeneous right hip musculature, primarily gluteus medius and minimus, rectus femoris and vastus lateralis and the adductor muscles. This is nonspecific but suggests a subacute hematoma of these structures. Nothing organized/measurable. 3. Chronic L5 pars defects with grade 2 L5/S1 spondylolisthesis. Glenroy Sheffield MD Objective Remarks GENERAL: AOx3, NAD. SKIN: Warm and dry. HEAD: Normocephalic. EYES: No scleral icterus. No injection or drainage. NECK: Supple, trachea midline. No JVD or lymphadenopathy. CARDIOVASCULAR: Regular rate and rhythm without murmurs, gallops, or rubs. RESPIRATORY: Breath sounds equal bilaterally. No accessory muscle use. GASTROINTESTINAL: Abdomen soft, non-tender, nondistended. MUSCULOSKELETAL: No cyanosis, or edema. Wound vac placed on the right thigh. BACK: Nontender without obvious deformity. No CVA tenderness. Procedures 08/16/2016 Washout of the fasciotomy site with reattachment of acellular matrix and wound Vac. 08/06/2016 Washout of the fasciotomy site and placement of acellular matrix coverage with wound VAC placement. 07/26/2016 Pulse irrigation of the medial and lateral fasciotomy, closure of the medial wound, partial closure of the lateral wound and large wound Vac placement. 07/25/2016 Medial and lateral fasciotomy and compartment release of the thigh with right gluteal area. A/P Problem List: (1) Compartment syndrome of right lower extremity ICD Code: T79.A21A Status: Acute (2) Rhabdomyolysis ICD Code: M62.82 Status: Resolved (3) Drug overdose ICD Code: T50.901A Status: Resolved (4) Acute kidney failure ICD Code: N17.9 Status: Acute (5) Small right middle lobe consolidation Status: Acute (6) Hip hematoma, right ICD Code: S70.01XA Status: Acute Assessment and Plan Ms. Sahu is a 30 year old female who was admitted to the hospital on 2015 to the ICU due to drug overdose, right sided numbness, hyperkalemia, CARLITO, hypotension, liver enzyme elevation, troponin elevation. Cardiology was contacted on the day of admission, STEMI was not suspected by cardiology. Patient admitted to using cocaine night prior to this admission. She also uses heroine. Patient right thigh was noted to be swollen with severe tenderness. Subsequently, patient underwent fasciotomy for compartment syndrome. Wound vac was placed. Patient underwent several surgical intervention by Dr. Turner with regards to her right thigh. Patient also required hemodialysis with regards to her CARLITO. Due to improvement of her renal function, hemodialysis has been discontinued. - Right medial/lateral thigh compartment syndrome - Status post right fasciotomy and wound VAC placement by Dr. Turner - Plastic surgery on board for possible skin graft. - Continue oxycodone, morphine when necessary for pain - Severe sepsis - Escherichia coli urinary tract infection - Currently resolved. Infectious disease followed this patient. Currently not on any abx for UTI. - Patient received Vanc, zosyn and later Daptomycin and Levaquin. - Acute kidney injury - Creatinine 2.32 on 08/20/2016. - Acute rhabdomyolysis. CPK [id number] on 07/25/2016 ==> 118 on 08/07/2016. -Reduce normal saline to 75 cc per hour. Nephrology following. - Vas-Cath removed. Patient is not on dialysis anymore. - Macrocytic anemia - Thrombocytopenia - Transfused total 4 units PRBCs, 2 pack platelets, 2 FFP 2 cryo-since admission - currently Hgb stable - 8.7 on 08/20/2016. - Delirium - Polysubstance abuse including cocaine/heroine - Use PRN Ativan for anxiety and oxycodone/morphine as needed for pain. - CT of the head 07/25 revealed no acute intracranial findings. Continue aspirin, thiamine and multivitamins. - MRI brain 07/29 revealed T2 signal abnormality globus pallidus and mesial temporal lobe bilaterally. - EEG 07/30 revealed slowing system with moderate diffuse encephalopathy. No seizure activity. - Psychiatry clear to Osborn act 07/29 - neurology evaluated the patient and feels that MRI results are from drug overdose. - Ophthalmology exam negative for Bre-Sylvia rings. - Mild Respiratory insufficiency secondary to pneumonia/metabolic acidosis - Small consolidation right middle lobe - Right basilar pulmonary nodule 3 mm - follow-up CT chest 3 months recommended - Tobacco abuse. - now on room air, has cough but nonproductive, continue incentive spirometry , duo nebs. - CT chest 07/25/2016 revealed right middle lobe infiltrate along with 3 mm right basilar pulmonary nodule. - Chest x-ray 07/26/2016 reveals no significant cardio pulmonary findings - Sinus tachycardia - NSTEMI - likely due to cocaine abuse - Hypertension - Continue Norvasc 10mg. Clonidine PRN. - Transaminitis - resolved. - Hyperammonemia - likely due to rhabdomyolysis, hypotension. - CT of the abdomen and pelvis shows fatty liver/21 mm right ovarian cyst - Negative hepatitis panel - Xifaxan 550 twice a day/lactulose 30mg 3 times a day for elevated ammonia. - S/P liver biopsy 08/13/16 - showed minimal steatosis. Full code. SCDs. Problem Qualifiers (1) Drug overdose: Qualified Code: T50.904A - Drug overdose, undetermined intent, initial encounter (2) Acute kidney failure: Qualified Code: N17.9 - Acute renal failure, unspecified acute renal failure type Sandie Sheikh DO Aug 22, 2016 06:51
[2016-08-22] MEDS: LACTULOSE SYRUP 20 GM/30 ML CUP PO SCH ×2 (08:37→20:17)
[2016-08-22] MEDS: THIAMINE HCL 100 MG TAB PO SCH (08:38)
[2016-08-22] MEDS: ASPIRIN EC 325 MG TABEC PO SCH (08:38)
[2016-08-22] MEDS: FAMOTIDINE 20 MG TAB PO SCH ×2 (08:38→20:17)
[2016-08-22] MEDS: cloNIDine HCL 0.1 MG TAB PO SCH ×2 (08:39→20:17)
[2016-08-22] MEDS: RIFAXIMIN 550 MG TAB PO SCH ×2 (08:39→20:17)
[2016-08-22] MEDS: SODIUM CHLORIDE 0.9% FLUSH 5 ML FLUSH IV FLUSH SCH ×2 (08:40→20:21)
[2016-08-22] MEDS: MULTIVITAMIN TAB PO SCH (08:40)
[2016-08-22] MEDS: FOLIC ACID 1 MG TAB PO SCH (08:40)
--- NOTE | 2016-08-22 10:39 | HHI.NPPN ---
Subjective History of Present Illness 30 year old female with drug OD, Rt thigh compartment syndrome s/p Fasciotomy, Rhabdomyolysis, ARF Additional Remarks Patient is alert, has mild pain in leg, eating well. Review of Systems General Constitutional: Fatigue Musculoskeletal MS: Pain/Stiffness Objective Data Data 08/21/16 08/22/16 19:00 07:00 Intake Total 360 ml 720 ml Balance 360 ml 720 ml Intake Oral 360 ml 720 ml IV Total 0 ml # Voids 2 3 # Bowel Movements 0 Vital Signs Date Time Temp Pulse Resp B/P Pulse Ox O2 Delivery O2 Flow Rate FiO2 08/22/16 08:00 98.7 83 16 114/73 97 08/22/16 04:00 97.9 79 20 120/80 98 08/22/16 00:00 98.6 77 20 113/72 98 08/21/16 20:00 98.0 90 20 106/77 99 08/21/16 16:00 98.2 78 16 111/76 98 08/21/16 12:00 98.0 68 16 131/72 97 -: 08/20/16 0325 08/20/16 0325 Physical Exam General Appearance: No Acute Distress, Comfortable Neck Neck Exam: Neck Supple Pulmonary Resp Exam: Clear Bilaterally, Breath Sounds Equal Cardiology CV Exam: Regular, Normal Sinus Rhythm Gastrointestinal/Abdomen GI Exam: Soft, Non-Tender, Bowel Sounds Present Extremeties Extremities Exam: Trace Edema Neurologic Neuro Exam: Alert, Awake Assessment/Plan Problem List: (1) Acute kidney failure Plan: This is likely due to rhabdomyolysis and acute tubular necrosis Urine out put is better. BUN and Creatinine has been improving. VasCath removed. Dr. Fletcher will follow from AM. BMP in AM. (2) Compartment syndrome of right lower extremity Plan: Status post surgery (3) UTI (urinary tract infection) Plan: treated (4) Severe sepsis Plan: Status post fasciotomy right leg S/P liver biopsy Problem Qualifiers (1) Acute kidney failure: Qualified Code: N17.9 - Acute renal failure, unspecified acute renal failure type Last Romero MD Aug 22, 2016 10:39
[2016-08-22] MEDS: FERROUS SULFATE 325 MG (65 MG ELEMENTAL IRON) TAB PO SCH ×2 (12:00→17:02)
--- NOTE | 2016-08-22 18:36 | PD.PLAS.PN ---
Subjective Remarks Patient doing well. Did not get a wound care VAC nurse visit yet. Should be seen tomorrow Tuesday - as per the floor staff/ Discussed wound granulations and any necrotic tissues / infection etc needs to be assessed before a skin graft. A culture can also help. Patient can take photographs of the wound for me if she does get the wound vac changed tomorrow. I will order C&S as well in that case. In absence of a VAC change tomorrow, she can be taken to the OR on Tuesday - and a debridement, c&s and exam under anesthesia can all be done. Patient willing to go along with the plan. Vital Signs Date Time Temp Pulse Resp B/P Pulse Ox O2 Delivery O2 Flow Rate FiO2 08/22/16 17:02 18 08/22/16 16:00 96.6 86 16 112/75 98 08/22/16 12:00 98.7 75 16 111/73 98 08/22/16 08:20 80 08/22/16 08:00 98.7 83 16 114/73 97 08/22/16 04:00 97.9 79 20 120/80 98 08/22/16 00:00 98.6 77 20 113/72 98 08/21/16 20:00 98.0 90 20 106/77 99 I/O 08/21/16 08/21/16 08/21/16 08/22/16 08/22/16 08/22/16 07:00 15:00 23:00 07:00 15:00 23:00 Intake Total 480 ml 360 ml 480 ml 240 ml 962 ml Output Total 75 ml 0 ml 100 ml Balance 405 ml 360 ml 480 ml 240 ml 962 ml -100 ml Intake Oral 480 ml 360 ml 480 ml 240 ml 960 ml IV Total 0 ml 0 ml 2 ml Drainage Total 75 ml 0 ml 100 ml # Voids 2 2 1 2 2 # Bowel Movements 1 0 0 # Sanitary Pads 1 Pads Result Diagram: 08/20/16 0325 08/20/16 0325 Alejandro Guerra MD Aug 22, 2016 18:36
[2016-08-23] VITALS (9 sets, daily range): BP systolic 108–121; BP diastolic 67–78; PULSE 70–103; RESP 16–19; TEMP 97–99.2; O2SAT 93–100
[2016-08-23] MEDS: CHLORHEXIDINE GLUCONATE 2 % 1 PACK (2 CLOTHS) TOP SCH (04:00)
[2016-08-23 07:31] LABS: POTASSIUM 3.6 MEQ/L (3.5-5.1)
[2016-08-23] MEDS: LACTULOSE SYRUP 20 GM/30 ML CUP PO SCH ×2 (08:28→19:54)
[2016-08-23] MEDS: ASPIRIN EC 325 MG TABEC PO SCH (08:30)
[2016-08-23] MEDS: RIFAXIMIN 550 MG TAB PO SCH ×2 (08:30→19:54)
[2016-08-23] MEDS: THIAMINE HCL 100 MG TAB PO SCH (08:30)
[2016-08-23] MEDS: FOLIC ACID 1 MG TAB PO SCH (08:30)
[2016-08-23] MEDS: MULTIVITAMIN TAB PO SCH (08:30)
[2016-08-23] MEDS: FAMOTIDINE 20 MG TAB PO SCH ×2 (08:30→19:54)
[2016-08-23] MEDS: cloNIDine HCL 0.1 MG TAB PO SCH ×2 (08:30→23:38)
[2016-08-23] MEDS: SODIUM CHLORIDE 0.9% FLUSH 5 ML FLUSH IV FLUSH SCH ×2 (08:31→19:54)
--- NOTE | 2016-08-23 08:58 | HHI.PR ---
Subjective Remarks Follow up for medial and lateral thigh compartment syndrome s/p surgery. Ms. Sahu is doing well. She complains of persistent pain on her right lower ext. Denies any fever, chills. Objective Vitals Vital Signs Date Time Temp Pulse Resp B/P Pulse Ox O2 Delivery O2 Flow Rate FiO2 08/23/16 08:00 98.8 77 16 113/78 97 08/23/16 06:40 16 08/23/16 03:58 98.3 71 19 110/74 93 08/23/16 00:00 99.2 77 19 114/76 98 08/22/16 20:17 98 08/22/16 20:00 96.8 81 19 118/68 98 08/22/16 16:00 96.6 86 16 112/75 98 08/22/16 12:00 98.7 75 16 111/73 98 I/O 08/22/16 08/22/16 08/22/16 08/23/16 08/23/16 08/23/16 07:00 15:00 23:00 07:00 15:00 23:00 Intake Total 240 ml 962 ml 240 ml 1000 ml Output Total 0 ml 100 ml Balance 240 ml 962 ml 140 ml 1000 ml Intake Oral 240 ml 960 ml 240 ml IV Total 0 ml 2 ml 1000 ml Drainage Total 0 ml 100 ml # Voids 2 2 1 # Bowel Movements 0 0 # Sanitary Pads 1 Pads Result Diagram: 08/20/16 0325 08/23/16 0549 Imaging Last Impressions Liver Biopsy CT 08/13/16 0000 Signed Impressions: Service Date/Time: Saturday, August 13, 2016 12:42 - CONCLUSION: Uncomplicated CT guided biopsy. Raymundo Agarwal MD Chest X-Ray 08/09/16 0000 Signed Impressions: Service Date/Time: Tuesday, August 09, 2016 19:30 - CONCLUSION: 1. Interval placement of double-lumen central venous line. 2. Hazy opacity at the lung bases with mild blunting of the left costophrenic angle which could indicate a small effusion. Nael Zuñiga MD Catheter Placement X-Ray 07/30/16 0000 Signed Impressions: Service Date/Time: Saturday, July 30, 2016 14:14 - CONCLUSION: Uncomplicated line placement as above. Judson Cee MD Brain MRI 12/1/16 0000 Signed Impressions: Service Date/Time: July 13:34 - CONCLUSION: 1. Abnormal examination of the brain demonstrating areas of T2 signal and abnormal diffusion signal involving the globus pallidus bilaterally and the mesial temporal lobes bilaterally. Primary considerations would include carbon monoxide poisoning versus other partial anoxic brain injury. Please see above discussion. Aamir Narayanan MD Abdomen Ultrasound 07/26/16 Signed Impressions: Service Date/Time: Tuesday, July 26, 2016 10:21 - CONCLUSION: 1. Small amount of free fluid adjacent to the lower poles of both kidneys. 2. Obscuration of the head of the pancreas, distal IVC and aorta due to overlying bowel gas. 3. Otherwise negative. Judson Cee MD Lower Extremity CT 07/25/16 Signed Impressions: Service Date/Time: Monday, July 25, 2016 18:54 - CONCLUSION: Extensive nonspecific myositis of the right thigh, also involves gluteus medius and minimus proximally and at least medial gastrocnemius below the knee. Infectious/inflammatory and ischemic etiologies would be in the differential. No gas bubbles are seen to substantiate necrotizing fasciitis. No organized/drainable abscess. Glenroy Sheffield MD Hip and Pelvis X-Ray 07/25/16 Signed Impressions: Service Date/Time: Monday, July 25, 2016 16:52 - CONCLUSION: Intact pelvis and right hip. Nonspecific surrounding soft tissue swelling Glenroy Sheffield MD Head CT 07/25/16 0000 Signed Impressions: Service Date/Time: Monday, July 25, 2016 14:38 - CONCLUSION: Negative noncontrast head CT. Glenroy Sheffield MD Chest CT 07/25/16 0000 Signed Impressions: Service Date/Time: Monday, July 25, 2016 16:37 - CONCLUSION: Focal dense consolidation right middle lobe, nonspecific but most likely infectious or inflammatory. Also a 3 mm right basilar pulmonary nodule Followup noncontrast chest CT in a few months recommended to confirm resolution/stability. Glenroy Sheffield MD Abdomen/Pelvis CT 07/25/16 0000 Signed Impressions: Service Date/Time: Monday, July 25, 2016 16:37 - CONCLUSION: 1. Fatty liver and 21 mm right ovarian cyst. Otherwise, no acute abnormality seen within the abdomen or pelvis. 2. Swollen, heterogeneous right hip musculature, primarily gluteus medius and minimus, rectus femoris and vastus lateralis and the adductor muscles. This is nonspecific but suggests a subacute hematoma of these structures. Nothing organized/measurable. 3. Chronic L5 pars defects with grade 2 L5/S1 spondylolisthesis. Glenroy Sheffield MD Objective Remarks GENERAL: AOx3, NAD. SKIN: Warm and dry. HEAD: Normocephalic. EYES: No scleral icterus. No injection or drainage. NECK: Supple, trachea midline. No JVD or lymphadenopathy. CARDIOVASCULAR: Regular rate and rhythm without murmurs, gallops, or rubs. RESPIRATORY: Breath sounds equal bilaterally. No accessory muscle use. GASTROINTESTINAL: Abdomen soft, non-tender, nondistended. MUSCULOSKELETAL: No cyanosis, or edema. Wound vac placed on the right thigh. BACK: Nontender without obvious deformity. No CVA tenderness. Procedures 08/16/2016 Washout of the fasciotomy site with reattachment of acellular matrix and wound Vac. 08/06/2016 Washout of the fasciotomy site and placement of acellular matrix coverage with wound VAC placement. 07/26/2016 Pulse irrigation of the medial and lateral fasciotomy, closure of the medial wound, partial closure of the lateral wound and large wound Vac placement. 07/25/2016 Medial and lateral fasciotomy and compartment release of the thigh with right gluteal area. A/P Problem List: (1) Compartment syndrome of right lower extremity ICD Code: T79.A21A Status: Acute (2) Rhabdomyolysis ICD Code: M62.82 Status: Resolved (3) Drug overdose ICD Code: T50.901A Status: Resolved (4) Acute kidney failure ICD Code: N17.9 Status: Acute (5) Small right middle lobe consolidation Status: Acute (6) Hip hematoma, right ICD Code: S70.01XA Status: Acute Assessment and Plan Ms. Sahu is a 30 year old female who was admitted to the hospital on 2015 to the ICU due to drug overdose, right sided numbness, hyperkalemia, CARLITO, hypotension, liver enzyme elevation, troponin elevation. Cardiology was contacted on the day of admission, STEMI was not suspected by cardiology. Patient admitted to using cocaine night prior to this admission. She also uses heroine. Patient right thigh was noted to be swollen with severe tenderness. Subsequently, patient underwent fasciotomy for compartment syndrome. Wound vac was placed. Patient underwent several surgical intervention by Dr. Turner with regards to her right thigh. Patient also required hemodialysis with regards to her CARLITO. Due to improvement of her renal function, hemodialysis has been discontinued. - Right medial/lateral thigh compartment syndrome - Status post right fasciotomy and wound VAC placement by Dr. Turner - Plastic surgery on board for possible skin graft. - Continue oxycodone, morphine when necessary for pain - Severe sepsis - Escherichia coli urinary tract infection - Currently resolved. Infectious disease followed this patient. Currently not on any abx for UTI. - Patient received Vanc, zosyn and later Daptomycin and Levaquin. - Acute kidney injury - Creatinine 2.32 on 08/20/2016. - Acute rhabdomyolysis. CPK [id number] on 07/25/2016 ==> 118 on 08/07/2016. - Continue normal saline to 75 cc per hour. Nephrology following. - Vas-Cath removed. Patient is not on dialysis anymore. - Macrocytic anemia - Thrombocytopenia - Transfused total 4 units PRBCs, 2 pack platelets, 2 FFP 2 cryo-since admission - currently Hgb stable - 8.7 on 08/20/2016. - Delirium - Polysubstance abuse including cocaine/heroine - Use PRN Ativan for anxiety and oxycodone/morphine as needed for pain. - CT of the head 07/25 revealed no acute intracranial findings. Continue aspirin, thiamine and multivitamins. - MRI brain 07/29 revealed T2 signal abnormality globus pallidus and mesial temporal lobe bilaterally. - EEG 07/30 revealed slowing system with moderate diffuse encephalopathy. No seizure activity. - Psychiatry lifted Osborn act 07/29/2016 - neurology evaluated the patient and feels that MRI results are from drug overdose. - Ophthalmology exam negative for Bre-Sylvia rings. - Mild Respiratory insufficiency secondary to pneumonia/metabolic acidosis - Small consolidation right middle lobe - Right basilar pulmonary nodule 3 mm - follow-up CT chest 3 months recommended - Tobacco abuse. - now on room air, has cough but nonproductive, continue incentive spirometry , duo nebs. - CT chest 07/25/2016 revealed right middle lobe infiltrate along with 3 mm right basilar pulmonary nodule. - Chest x-ray 07/26/2016 reveals no significant cardio pulmonary findings - Sinus tachycardia - NSTEMI - likely due to cocaine abuse - Hypertension - Continue Norvasc 10mg. Clonidine PRN. - Transaminitis - resolved. - Hyperammonemia - likely due to rhabdomyolysis, hypotension. - CT of the abdomen and pelvis shows fatty liver/21 mm right ovarian cyst - Negative hepatitis panel - Xifaxan 550 twice a day/lactulose 30mg 3 times a day for elevated ammonia. - S/P liver biopsy 08/13/16 - showed minimal steatosis. Full code. SCDs. Problem Qualifiers (1) Drug overdose: Qualified Code: T50.904A - Drug overdose, undetermined intent, initial encounter (2) Acute kidney failure: Qualified Code: N17.9 - Acute renal failure, unspecified acute renal failure type Sandie Sheikh DO Aug 23, 2016 8:58 am
--- NOTE | 2016-08-23 12:50 | HHI.NPPN ---
Subjective History of Present Illness 30 year old female with drug OD, Rt thigh compartment syndrome s/p Fasciotomy, Rhabdomyolysis, ARF Additional Remarks Patient is alert, has mild pain in leg, eating well. Review of Systems General Constitutional: Fatigue Musculoskeletal MS: Pain/Stiffness Objective Data Data 08/22/16 08/23/16 19:00 07:00 Intake Total 962 ml 1240 ml Output Total 100 ml Balance 862 ml 1240 ml Intake Oral 960 ml 240 ml IV Total 2 ml 1000 ml Drainage Total 100 ml # Voids 2 1 # Bowel Movements 0 0 # Sanitary Pads 1 Pads Vital Signs Date Time Temp Pulse Resp B/P Pulse Ox O2 Delivery O2 Flow Rate FiO2 08/23/16 12:00 98.6 73 16 108/77 98 08/23/16 08:30 72 08/23/16 08:00 98.8 77 16 113/78 97 08/23/16 06:40 16 08/23/16 03:58 98.3 71 19 110/74 93 08/23/16 00:00 99.2 77 19 114/76 98 08/22/16 20:17 98 08/22/16 20:00 96.8 81 19 118/68 98 08/22/16 16:00 96.6 86 16 112/75 98 -: 08/20/16 0325 08/23/16 0549 Physical Exam General Appearance: No Acute Distress, Comfortable Neck Neck Exam: Neck Supple Pulmonary Resp Exam: Clear Bilaterally, Breath Sounds Equal Cardiology CV Exam: Regular, Normal Sinus Rhythm Gastrointestinal/Abdomen GI Exam: Soft, Non-Tender, Bowel Sounds Present Extremeties Extremities Exam: Trace Edema Extremeties Remarks Rt thigh vacuum dressing Neurologic Neuro Exam: Alert, Awake Assessment/Plan Problem List: (1) Acute kidney failure Plan: This is likely due to rhabdomyolysis and acute tubular necrosis Urine out put is better. BUN and Creatinine declining creatinine 1.8 off dialysis Nephrology to follow less frequently (2) Compartment syndrome of right lower extremity Plan: Status post surgery (3) UTI (urinary tract infection) Plan: treated (4) Severe sepsis Plan: Status post fasciotomy right leg S/P liver biopsy Problem Qualifiers (1) Acute kidney failure: Qualified Code: N17.9 - Acute renal failure, unspecified acute renal failure type Vinny Fletcher MD Aug 23, 2016 12:50
[2016-08-23] MEDS: FERROUS SULFATE 325 MG (65 MG ELEMENTAL IRON) TAB PO SCH ×2 (13:02→17:53)
[2016-08-23] MEDS: SODIUM CHLORIDE 0.9% FLUSH 5 ML FLUSH IV FLUSH PRN (14:30)
[2016-08-23] MEDS: MORPHINE SULFATE 4 MG/ML INJ IV PRN (14:30)
--- NOTE | 2016-08-23 14:50 | PD.CAR.PN ---
CVT Progress Note Subjective/Hospital Course: Patient with clinical findings of medial and lateral thigh compartment syndrome For OR now Thanks Delaney 07/26/16 Patient underwent yesterday and medial and lateral fasciotomy of the thigh debridement Today she underwent washout the both, closure of the medial fasciotomy skin and wound VAC placement on lateral fasciotomy The lateral fasciotomy will need wound VAC for but 2 weeks and then this can be covered with the partial-thickness skin graft by plastic surgery 07/27/16 Status post the thigh compartment syndrome with medial and lateral fasciotomy of the right leg Yesterday patient went for washout closure and drainage of the medial fasciotomy site while the lateral fasciotomy from hip to the knee remains open Wound VAC in place Hemoglobin now stable and there is no other source of bleeding Patient was in active DIC and fibrinolysis for the first 48 hours and this is now abating Agree with blood and blood products administration Platelets remain stable and unless these drop on the 30,000 would probably not transfuse Patient can be out of bed and should be bearing weight on this leg as much as possible 07/28/16 CHAZ drainage from the medial closure of the thighs decreased but I will leave it in till the swelling decreases and the third space abates for otherwise patient will develop a seroma in this area Lateral incision now covered with a wound VAC is draining minimally Hemoglobin remains stable Plan Starting tomorrow will have wound care assist with changing wound VAC at the bedside and I will consult plastic surgery for grafting of the wound in the near future 07/29/16 Medial compartment is closed and drainage is minimal so we will DC CHAZ Lateral thigh compartment is open clean and we will start wound VAC changes today Eventually patient will go to the OR for another washout and perhaps little more closure of this area but for the most part she will need a skin grafting of this area 07/30/2016 Medial incision is clean and dry Lateral incision wound VAC has been changed yesterday and he looks nice and clean and granulating nicely Patient will need several wound VAC exchange to before graft can be placed in this area Continue care Patient can transfer to the floor from my point 08/05/16 The patient will undergo tomorrow placement of acellular matrix xenograft in the operating room Wound VAC will then remain on it for about 10 days and then after that patient can be grafted This procedure should take about 30 minutes and then patient will be able to go to rehabilitation or even [place] for about 10 days and then return to us for grafting 08/07/16 Patient underwent yesterday washout of her fasciotomy site of the right thigh with placement of a acellular xenograft to improve granulation and the allow for eventual partial-thickness skin graft placement The drainage from the wound VAC at this point will be copious considering the inflammatory reaction that the xenograft induces so this is expected. In addition patient dropped hemoglobin and will be given 2 units of blood The wound VAC will stay on for about 9 days at this point so patient can either stay in our hospital or be transferred possibly to [place] till the time comes to remove the wound VAC for it will have to be done in the operating room At that time area will be ready for grafting or he may need another 10 days of xenograft is a granulation is not sufficient I will consult Dr. Juares to see the patient for skin grafting when the time comes 08/10/16 Wound VAC is in position and drainage has now significantly decreased Patient is excellent distal pulses and leg is warm Patient could move to [place] from my point till the time comes to remove the wound VAC is another week Nothing to add to care let this time 08/12/16 Patient doing well at this time Drainage from the wound VAC is minimal Patient will be taken back to the operating room on Tuesday for evaluation and washout with possible grafting Patient may need another 9 or 10 days of the acellular matrix depending on the granulation tissue present next week or may be graftable next week We'll consult Dr. Juares for the grafting 08/17/16 Patient underwent yesterday washout reapplication off acellular matrix with placement of the wound VAC Incisions are clean and dry, stitches have been removed proximal and distal to the fasciotomy defect and fasciotomies covered with the above mentioned wound VAC Serosanguineous drainage By next week patient will be ready for skin grafting and Dr. Juares will be consulted 08/18/[address] with serosanguineous drainage Patient states she has no pain in this leg anymore Excellent distal flow Grafting next week 08/21/16 Wound VAC in position and serosanguineous drainage Hemoglobin remains stable I've consult the plastic surgery for grafting but was told that there was no plastic surgery coverage yesterday so the consult will go to the next plastic surgeon instructional services specialist which is fine with me Patient will need a partial-thickness skin graft on the fasciotomy site of the right thigh, based on plastic surgeons opinion and expert consultation 08/23/16 Patient to go tomorrow for the wound VAC removal and replacement and removal of the remnants of the acellular matrix with washout Spoken to Dr. Guerra of the plastic surgeon and he will accompany me in the OR to evaluate the wound for grafting He is kind assistance is greatly appreciated Objective: Vital Signs Date Time Temp Pulse Resp B/P Pulse Ox O2 Delivery O2 Flow Rate FiO2 08/23/16 12:00 98.6 73 16 108/77 98 08/23/16 08:30 72 08/23/16 08:00 98.8 77 16 113/78 97 08/23/16 06:40 16 08/23/16 03:58 98.3 71 19 110/74 93 08/23/16 00:00 99.2 77 19 114/76 98 08/22/16 20:17 98 08/22/16 20:00 96.8 81 19 118/68 98 08/22/16 16:00 96.6 86 16 112/75 98 Labs: Laboratory Tests Test 08/23/16 05:49 Sodium Level 142 MEQ/L (136-145) Potassium Level 3.6 MEQ/L (3.5-5.1) Chloride Level 108 MEQ/L (98-107) Carbon Dioxide Level 23.0 MEQ/L (21.0-32.0) Anion Gap 11 MEQ/L (5-15) Blood Urea Nitrogen 9 MG/DL (7-18) Creatinine 1.81 MG/DL (0.50-1.00) Estimat Glomerular Filtration 33 ML/MIN (>89) Rate Random Glucose 92 MG/DL (74-106) Calcium Level 8.3 MG/DL (8.5-10.1) Result Diagram: 08/20/16 0325 08/23/16 0549 (1) Drug overdose (2) Hypocalcemia (3) SIRS (systemic inflammatory response syndrome) (4) Renal failure (5) Hyperkalemia (6) Lactic acidosis (7) Altered mental status (8) Severe sepsis (9) Elevated troponin (10) Severe metabolic acidosis (11) Acute kidney failure (12) Leukocytosis (13) Hip hematoma, right (14) Small right middle lobe consolidation (15) Rhabdomyolysis (16) Compartment syndrome of right lower extremity Problem Qualifiers (1) Drug overdose: Qualified Code: T50.904A - Drug overdose, undetermined intent, initial encounter (2) Acute kidney failure: Qualified Code: N17.9 - Acute renal failure, unspecified acute renal failure type (3) Leukocytosis: Qualified Code: D72.829 - Leukocytosis, unspecified type Saw Turner MD Aug 23, 2016 14:50
[2016-08-24] MEDS: CHLORHEXIDINE GLUCONATE 2 % 1 PACK (2 CLOTHS) TOP SCH (03:47)
[2016-08-24 04:10] VITALS: BP 104/58; PULSE 73; RESP 18; TEMP 98.1; O2SAT 96
[2016-08-24 04:47] LABS: APTT (PATIENT) 25.9 SEC (24.3-30.1)
[2016-08-24 08:00] VITALS: BP 116/68; PULSE 72; RESP 16; TEMP 98.1; O2SAT 96
[2016-08-24] MEDS: MULTIVITAMIN TAB PO SCH (09:04)
[2016-08-24] MEDS: cloNIDine HCL 0.1 MG TAB PO SCH ×2 (09:04→23:14)
[2016-08-24] MEDS: FAMOTIDINE 20 MG TAB PO SCH ×2 (09:05→20:21)
[2016-08-24] MEDS: THIAMINE HCL 100 MG TAB PO SCH (09:05)
[2016-08-24] MEDS: FOLIC ACID 1 MG TAB PO SCH (09:05)
[2016-08-24] MEDS: ASPIRIN EC 325 MG TABEC PO SCH (09:06)
[2016-08-24] MEDS: LACTULOSE SYRUP 20 GM/30 ML CUP PO SCH ×2 (09:06→20:21)
[2016-08-24] MEDS: RIFAXIMIN 550 MG TAB PO SCH ×2 (09:06→20:21)
[2016-08-24] MEDS: SODIUM CHLORIDE 0.9% FLUSH 5 ML FLUSH IV FLUSH SCH ×2 (09:06→20:21)
[2016-08-24] MEDS ORDERED: BUPIVACAINE HCL PF 0.5% 30 ML VIAL ONE (09:59)
[2016-08-24] MEDS ORDERED: MINERAL OIL 10 ML VIAL ONE (09:59)
[2016-08-24] MEDS ORDERED: fentaNYL CITRATE 250 MCG/5 ML AMP ONE (10:33)
[2016-08-24] MEDS ORDERED: GENTAMICIN SULFATE 80 MG/2 ML VIAL ONE (10:36)
[2016-08-24] MEDS ORDERED: DO NOT ADM ANY ANTICOAGULANT DRUGS XX PRN (12:00)
[2016-08-24] MEDS ORDERED: ONDANSETRON HCL 4 MG/2 ML VIAL IV PUSH ONE (12:00)
[2016-08-24] MEDS ORDERED: PROPOFOL 200 MG/20 ML AMP IV ONE (12:00)
[2016-08-24] MEDS ORDERED: *morphine SULFATE 8 MG/ML PERIprocedure ONLY ONE (12:05)
[2016-08-24] MEDS ORDERED: *diphenhydrAMINE HCL 50 MG/ML VIAL PERIprocedural Use ONLY ONE (12:13)
[2016-08-24] MEDS: FERROUS SULFATE 325 MG (65 MG ELEMENTAL IRON) TAB PO SCH ×2 (13:01→16:58)
--- NOTE | 2016-08-24 15:51 | MP ---
cc: MD MAHNAZ,SAW DATE OF SURGERY 08/24/2016 PREOPERATIVE DIAGNOSIS Rhabdomyolysis status post fasciotomy right thigh. POSTOPERATIVE DIAGNOSIS Rhabdomyolysis status post fasciotomy right thigh. PROCEDURE Washout of the right thigh removal of acellular matrix and placement of the wound VAC. SURGEON Dr. Turner. ANESTHESIA General. ESTIMATED BLOOD LOSS 10 cc. DETAILS OF PROCEDURE The patient was prepped and draped in the usual fashion. The old well neck is removed. The remnants of the acellular matrix are now removed with forceps and then the entire raw area is irrigated with copious amounts of saline. Indeed the patient now has nice granulation of the entire surface which is raw and well-perfused. The wound was also seen by Dr. Guerra the a plastic surgeon who was kind to consult on the patient and I discussed this with him. He will take the patient to the operating room in the next few days to do partial thickness skin graft. Saw Turner SJ/KK /2:15 PM /3:38 PM
[2016-08-24 16:00] VITALS: BP 99/60; PULSE 66; RESP 16; TEMP 99.1; O2SAT 97
--- NOTE | 2016-08-24 16:23 | HHI.PR ---
Subjective Remarks Follow up for medial and lateral thigh compartment syndrome s/p surgery. Patient was in surgery. Saw patient after she came back. She is currently doing well. Denies any acute concerns. She underwent Washout of the right thigh removal of acellular matrix and placement of the wound VAC. Objective Vitals Vital Signs Date Time Temp Pulse Resp B/P Pulse Ox O2 Delivery O2 Flow Rate FiO2 08/24/16 12:30 97.6 59 12 107/75 99 Room Air 08/24/16 12:15 57 12 109/66 97 Room Air 08/24/16 12:00 57 12 128/70 98 Room Air 08/24/16 11:57 97.7 75 12 117/70 96 Room Air 08/24/16 08:00 98.1 72 16 116/68 96 08/24/16 04:10 98.1 73 18 104/58 96 08/23/16 23:39 98.9 83 18 121/75 96 08/23/16 20:00 73 08/23/16 19:59 98.6 70 16 108/67 96 I/O 08/23/16 08/23/16 08/23/16 08/24/16 08/24/16 08/24/16 07:00 15:00 23:00 07:00 15:00 23:00 Intake Total 1000 ml 590 ml 480 ml 0 ml 800 ml Output Total 200 ml 50 ml 100 ml 15 ml Balance 1000 ml 390 ml 430 ml -100 ml 785 ml Intake Oral 590 ml 480 ml IV Total 1000 ml 0 ml 0 ml 200 ml Other 600 ml Drainage Total 200 ml 50 ml 100 ml 15 ml # Voids 2 3 2 # Bowel Movements 0 Result Diagram: 08/20/16 0325 08/23/16 0549 Imaging Last Impressions Liver Biopsy CT 08/13/16 0000 Signed Impressions: Service Date/Time: Saturday, August 13, 2016 12:42 - CONCLUSION: Uncomplicated CT guided biopsy. Raymundo Agarwal MD Chest X-Ray 08/09/16 0000 Signed Impressions: Service Date/Time: Tuesday, August 09, 2016 19:30 - CONCLUSION: 1. Interval placement of double-lumen central venous line. 2. Hazy opacity at the lung bases with mild blunting of the left costophrenic angle which could indicate a small effusion. Nael Zuñiga MD Catheter Placement X-Ray 07/30/16 0000 Signed Impressions: Service Date/Time: Saturday, July 30, 2016 14:14 - CONCLUSION: Uncomplicated line placement as above. Judson Cee MD Brain MRI 07/29/16 0000 Signed Impressions: Service Date/Time: July 13:34 - CONCLUSION: 1. Abnormal examination of the brain demonstrating areas of T2 signal and abnormal diffusion signal involving the globus pallidus bilaterally and the mesial temporal lobes bilaterally. Primary considerations would include carbon monoxide poisoning versus other partial anoxic brain injury. Please see above discussion. Aamir Narayanan MD Abdomen Ultrasound 07/26/16 0000 Signed Impressions: Service Date/Time: Tuesday, July 26, 2016 10:21 - CONCLUSION: 1. Small amount of free fluid adjacent to the lower poles of both kidneys. 2. Obscuration of the head of the pancreas, distal IVC and aorta due to overlying bowel gas. 3. Otherwise negative. Judson Cee MD Lower Extremity CT 07/25/16 0000 Signed Impressions: Service Date/Time: Monday, July 25, 2016 18:54 - CONCLUSION: Extensive nonspecific myositis of the right thigh, also involves gluteus medius and minimus proximally and at least medial gastrocnemius below the knee. Infectious/inflammatory and ischemic etiologies would be in the differential. No gas bubbles are seen to substantiate necrotizing fasciitis. No organized/drainable abscess. Glenroy Sheffield MD Hip and Pelvis X-Ray 07/25/16 0000 Signed Impressions: Service Date/Time: Monday, July 25, 2016 16:52 - CONCLUSION: Intact pelvis and right hip. Nonspecific surrounding soft tissue swelling Glenroy Sheffield MD Head CT 07/25/16 0000 Signed Impressions: Service Date/Time: Monday, July 25, 2016 14:38 - CONCLUSION: Negative noncontrast head CT. Glenroy Sheffield MD Chest CT 07/25/16 0000 Signed Impressions: Service Date/Time: Monday, July 25, 2016 16:37 - CONCLUSION: Focal dense consolidation right middle lobe, nonspecific but most likely infectious or inflammatory. Also a 3 mm right basilar pulmonary nodule Followup noncontrast chest CT in a few months recommended to confirm resolution/stability. Glenroy Sheffield MD Abdomen/Pelvis CT 07/25/16 0000 Signed Impressions: Service Date/Time: Monday, July 25, 2016 16:37 - CONCLUSION: 1. Fatty liver and 21 mm right ovarian cyst. Otherwise, no acute abnormality seen within the abdomen or pelvis. 2. Swollen, heterogeneous right hip musculature, primarily gluteus medius and minimus, rectus femoris and vastus lateralis and the adductor muscles. This is nonspecific but suggests a subacute hematoma of these structures. Nothing organized/measurable. 3. Chronic L5 pars defects with grade 2 L5/S1 spondylolisthesis. Glenroy Sheffiedl MD Objective Remarks GENERAL: AOx3, NAD. SKIN: Warm and dry. HEAD: Normocephalic. EYES: No scleral icterus. No injection or drainage. NECK: Supple, trachea midline. No JVD or lymphadenopathy. CARDIOVASCULAR: Regular rate and rhythm without murmurs, gallops, or rubs. RESPIRATORY: Breath sounds equal bilaterally. No accessory muscle use. GASTROINTESTINAL: Abdomen soft, non-tender, nondistended. MUSCULOSKELETAL: No cyanosis, or edema. Wound vac placed on the right thigh. BACK: Nontender without obvious deformity. No CVA tenderness. Procedures 08/24/2016 Washout of the right thigh removal of acellular matrix and placement of the wound VAC. 08/16/2016 Washout of the fasciotomy site with reattachment of acellular matrix and wound Vac. 08/06/2016 Washout of the fasciotomy site and placement of acellular matrix coverage with wound VAC placement. 07/26/2016 Pulse irrigation of the medial and lateral fasciotomy, closure of the medial wound, partial closure of the lateral wound and large wound Vac placement. 07/25/2016 Medial and lateral fasciotomy and compartment release of the thigh with right gluteal area. A/P Problem List: (1) Compartment syndrome of right lower extremity ICD Code: T79.A21A Status: Acute (2) Rhabdomyolysis ICD Code: M62.82 Status: Resolved (3) Drug overdose ICD Code: T50.901A Status: Resolved (4) Acute kidney failure ICD Code: N17.9 Status: Acute (5) Small right middle lobe consolidation Status: Acute (6) Hip hematoma, right ICD Code: S70.01XA Status: Acute Assessment and Plan Ms. Sahu is a 30 year old female who was admitted to the hospital on 2015 to the ICU due to drug overdose, right sided numbness, hyperkalemia, CARLITO, hypotension, liver enzyme elevation, troponin elevation. Cardiology was contacted on the day of admission, STEMI was not suspected by cardiology. Patient admitted to using cocaine night prior to this admission. She also uses heroine. Patient right thigh was noted to be swollen with severe tenderness. Subsequently, patient underwent fasciotomy for compartment syndrome. Wound vac was placed. Patient underwent several surgical intervention by Dr. Turner with regards to her right thigh. Patient also required hemodialysis with regards to her CARLITO. Due to improvement of her renal function, hemodialysis has been discontinued. - Right medial/lateral thigh compartment syndrome - Status post right fasciotomy and wound VAC placement by Dr. Turner - Plastic surgery on board for possible skin graft. - Continue oxycodone, morphine when necessary for pain - s/p Washout of the right thigh removal of acellular matrix and placement of the wound VAC today - Severe sepsis - Escherichia coli urinary tract infection - Currently resolved. Infectious disease followed this patient. Currently not on any abx for UTI. - Patient received Vanc, zosyn and later Daptomycin and Levaquin. - Acute kidney injury - Creatinine 2.32 on 08/20/2016. - Acute rhabdomyolysis. CPK [id number] on 07/25/2016 ==> 118 on 08/07/2016. - Continue normal saline to 75 cc per hour. Nephrology following. - Vas-Cath removed. Patient is not on dialysis anymore. - Macrocytic anemia - Thrombocytopenia - Transfused total 4 units PRBCs, 2 pack platelets, 2 FFP 2 cryo-since admission - currently Hgb stable - 8.7 on 08/20/2016. - Delirium - Polysubstance abuse including cocaine/heroine - Use PRN Ativan for anxiety and oxycodone/morphine as needed for pain. - CT of the head 07/25 revealed no acute intracranial findings. Continue aspirin, thiamine and multivitamins. - MRI brain 07/29 revealed T2 signal abnormality globus pallidus and mesial temporal lobe bilaterally. - EEG 07/30 revealed slowing system with moderate diffuse encephalopathy. No seizure activity. - Psychiatry lifted [place] act 07/29/2016 - neurology evaluated the patient and feels that MRI results are from drug overdose. - Ophthalmology exam negative for Bre-Sylvia rings. - Mild Respiratory insufficiency secondary to pneumonia/metabolic acidosis - Small consolidation right middle lobe - Right basilar pulmonary nodule 3 mm - follow-up CT chest 3 months recommended - Tobacco abuse. - now on room air, has cough but nonproductive, continue incentive spirometry , duo nebs. - CT chest 07/25/2016 revealed right middle lobe infiltrate along with 3 mm right basilar pulmonary nodule. - Chest x-ray 07/26/2016 reveals no significant cardio pulmonary findings - Sinus tachycardia - NSTEMI - likely due to cocaine abuse - Hypertension - Continue Norvasc 10mg. Clonidine PRN. - Transaminitis - resolved. - Hyperammonemia - likely due to rhabdomyolysis, hypotension. - CT of the abdomen and pelvis shows fatty liver/21 mm right ovarian cyst - Negative hepatitis panel - Xifaxan 550 twice a day/lactulose 30mg 3 times a day for elevated ammonia. - S/P liver biopsy 08/13/16 - showed minimal steatosis. Full code. SCDs. Problem Qualifiers (1) Drug overdose: Qualified Code: T50.904A - Drug overdose, undetermined intent, initial encounter (2) Acute kidney failure: Qualified Code: N17.9 - Acute renal failure, unspecified acute renal failure type Sandie Sheikh DO Aug 24, 2016 16:23
[2016-08-24 20:00] VITALS: PULSE 76
[2016-08-24 20:32] VITALS: BP 103/61; PULSE 80; RESP 16; TEMP 98.2; O2SAT 97
[2016-08-24 23:43] VITALS: BP 118/81; PULSE 80; RESP 16; TEMP 98.7; O2SAT 98
[2016-08-25] MEDS: CHLORHEXIDINE GLUCONATE 2 % 1 PACK (2 CLOTHS) TOP SCH ×2 (04:00→22:09)
[2016-08-25 04:16] VITALS: BP 110/71; PULSE 69; RESP 16; TEMP 97.9; O2SAT 96
[2016-08-25 08:00] VITALS: BP 105/71; PULSE 75; RESP 17; TEMP 97.4; O2SAT 97
[2016-08-25] MEDS: cloNIDine HCL 0.1 MG TAB PO SCH ×2 (08:35→22:08)
[2016-08-25] MEDS: MULTIVITAMIN TAB PO SCH (08:35)
[2016-08-25] MEDS: LACTULOSE SYRUP 20 GM/30 ML CUP PO SCH ×2 (08:35→22:08)
[2016-08-25] MEDS: FAMOTIDINE 20 MG TAB PO SCH ×2 (08:35→22:09)
[2016-08-25] MEDS: RIFAXIMIN 550 MG TAB PO SCH ×2 (08:35→22:09)
[2016-08-25] MEDS: ASPIRIN EC 325 MG TABEC PO SCH (08:35)
[2016-08-25] MEDS: THIAMINE HCL 100 MG TAB PO SCH (08:36)
[2016-08-25] MEDS: FOLIC ACID 1 MG TAB PO SCH (08:36)
[2016-08-25] MEDS: SODIUM CHLORIDE 0.9% FLUSH 5 ML FLUSH IV FLUSH SCH ×2 (08:36→22:08)
--- NOTE | 2016-08-25 09:40 | PD.PLAS.PN ---
Subjective Remarks For 08/24/16 Patient was seen in the OR yesterday - under anesthesia examinations showed the right thigh with apprrox 15 x 15 cm wound, the ACD matrix is loose and is no longer needed. Granulations seem to be healthy. No gross pus or smell from the owund Wound culture was taken before the prep I spoke to Dr. Baltazar and asked him to go ahead and remove all ACD and debride the wound with a scrub brush to remove all particulate matter as well. VAC can stay for a few more days - can be changed at bed side three times a week by the wound care nurse team -- 08/25/16 Patient doing well today. Not in pain Showed her the photograph from the yesterday in OR - Explained STSG again, she is willing to go ahead. Will schedule in next 4-5 days. Vital Signs Date Time Temp Pulse Resp B/P Pulse Ox O2 Delivery O2 Flow Rate FiO2 08/25/16 08:00 97.4 75 17 105/71 97 08/25/16 04:16 97.9 69 16 110/71 96 08/24/16 23:43 98.7 80 16 118/81 98 08/24/16 20:32 98.2 80 16 103/61 97 08/24/16 20:00 76 08/24/16 16:00 99.1 66 16 99/60 97 08/24/16 12:30 97.6 59 12 107/75 99 Room Air 08/24/16 12:15 57 12 109/66 97 Room Air 08/24/16 12:00 57 12 128/70 98 Room Air 08/24/16 11:57 97.7 75 12 117/70 96 Room Air I/O 08/24/16 08/24/16 08/24/16 08/25/16 08/25/16 08/25/16 07:00 15:00 23:00 07:00 15:00 23:00 Intake Total 0 ml 800 ml 760 ml 580 ml Output Total 100 ml 15 ml 85 ml 100 ml Balance -100 ml 785 ml 675 ml 480 ml Intake Oral 760 ml 580 ml IV Total 0 ml 200 ml 0 ml 0 ml Other 600 ml Drainage Total 100 ml 15 ml 85 ml 100 ml # Voids 2 3 2 Date/Time Procedure Status Source Growth 08/24/16 11:09 Gram Stain - Final Resulted Wound Other 08/24/16 11:09 Wound Culture Resulted Wound Other Pending 08/24/16 11:09 Fungal Smear - Final Resulted Wound Other NO FUNGAL ELEMENTS SEEN. 08/24/16 11:09 Fungal Culture Resulted Wound Other Pending 08/24/16 11:09 Acid Fast Stain Received Wound Other Pending 08/24/16 11:09 Mycobacterial Culture Received Wound Other Pending Result Diagram: 08/23/16 0549 Alejandro Guerra MD Aug 25, 2016 09:40
[2016-08-25 12:00] VITALS: BP 119/82; PULSE 85; RESP 18; TEMP 98.8; O2SAT 97
[2016-08-25] MEDS: FERROUS SULFATE 325 MG (65 MG ELEMENTAL IRON) TAB PO SCH ×2 (12:08→17:55)
--- NOTE | 2016-08-25 12:22 | PD.CAR.PN ---
CVT Progress Note Subjective/Hospital Course: Patient with clinical findings of medial and lateral thigh compartment syndrome For OR now Thanks Delaney 07/26/16 Patient underwent yesterday and medial and lateral fasciotomy of the thigh debridement Today she underwent washout the both, closure of the medial fasciotomy skin and wound VAC placement on lateral fasciotomy The lateral fasciotomy will need wound VAC for but 2 weeks and then this can be covered with the partial-thickness skin graft by plastic surgery 07/27/16 Status post the thigh compartment syndrome with medial and lateral fasciotomy of the right leg Yesterday patient went for washout closure and drainage of the medial fasciotomy site while the lateral fasciotomy from hip to the knee remains open Wound VAC in place Hemoglobin now stable and there is no other source of bleeding Patient was in active DIC and fibrinolysis for the first 48 hours and this is now abating Agree with blood and blood products administration Platelets remain stable and unless these drop on the 30,000 would probably not transfuse Patient can be out of bed and should be bearing weight on this leg as much as possible 07/28/16 CHAZ drainage from the medial closure of the thighs decreased but I will leave it in till the swelling decreases and the third space abates for otherwise patient will develop a seroma in this area Lateral incision now covered with a wound VAC is draining minimally Hemoglobin remains stable Plan Starting tomorrow will have wound care assist with changing wound VAC at the bedside and I will consult plastic surgery for grafting of the wound in the near future 07/29/16 Medial compartment is closed and drainage is minimal so we will DC CHAZ Lateral thigh compartment is open clean and we will start wound VAC changes today Eventually patient will go to the OR for another washout and perhaps little more closure of this area but for the most part she will need a skin grafting of this area 07/30/2016 Medial incision is clean and dry Lateral incision wound VAC has been changed yesterday and he looks nice and clean and granulating nicely Patient will need several wound VAC exchange to before graft can be placed in this area Continue care Patient can transfer to the floor from my point 08/05/16 The patient will undergo tomorrow placement of acellular matrix xenograft in the operating room Wound VAC will then remain on it for about 10 days and then after that patient can be grafted This procedure should take about 30 minutes and then patient will be able to go to rehabilitation or even [place] for about 10 days and then return to us for grafting 08/07/16 Patient underwent yesterday washout of her fasciotomy site of the right thigh with placement of a acellular xenograft to improve granulation and the allow for eventual partial-thickness skin graft placement The drainage from the wound VAC at this point will be copious considering the inflammatory reaction that the xenograft induces so this is expected. In addition patient dropped hemoglobin and will be given 2 units of blood The wound VAC will stay on for about 9 days at this point so patient can either stay in our hospital or be transferred possibly to [place] till the time comes to remove the wound VAC for it will have to be done in the operating room At that time area will be ready for grafting or he may need another 10 days of xenograft is a granulation is not sufficient I will consult Dr. Juares to see the patient for skin grafting when the time comes 08/10/16 Wound VAC is in position and drainage has now significantly decreased Patient is excellent distal pulses and leg is warm Patient could move to [place] from my point till the time comes to remove the wound VAC is another week Nothing to add to care let this time 08/12/16 Patient doing well at this time Drainage from the wound VAC is minimal Patient will be taken back to the operating room on Tuesday for evaluation and washout with possible grafting Patient may need another 9 or 10 days of the acellular matrix depending on the granulation tissue present next week or may be graftable next week We'll consult Dr. Juares for the grafting 08/17/16 Patient underwent yesterday washout reapplication off acellular matrix with placement of the wound VAC Incisions are clean and dry, stitches have been removed proximal and distal to the fasciotomy defect and fasciotomies covered with the above mentioned wound VAC Serosanguineous drainage By next week patient will be ready for skin grafting and Dr. Juares will be consulted 08/18/[address] with serosanguineous drainage Patient states she has no pain in this leg anymore Excellent distal flow Grafting next week 08/21/16 Wound VAC in position and serosanguineous drainage Hemoglobin remains stable I've consult the plastic surgery for grafting but was told that there was no plastic surgery coverage yesterday so the consult will go to the next plastic surgeon manager implementation which is fine with me Patient will need a partial-thickness skin graft on the fasciotomy site of the right thigh, based on plastic surgeons opinion and expert consultation 08/23/16 Patient to go tomorrow for the wound VAC removal and replacement and removal of the remnants of the acellular matrix with washout Spoken to Dr. Guerra of the plastic surgeon and he will accompany me in the OR to evaluate the wound for grafting He is kind assistance is greatly appreciated 08/25/16 Patient underwent successful placement of a new wound VAC yesterday and removal of the remnants of the acellular matrix The bed is nicely granulated and Dr. Guerra will proceed with placement of a skin graft in the next few days Medial aspect of the thigh fasciotomies nicely healed and stitches have been removed Objective: Vital Signs Date Time Temp Pulse Resp B/P Pulse Ox O2 Delivery O2 Flow Rate FiO2 08/25/16 08:00 97.4 75 17 105/71 97 08/25/16 04:16 97.9 69 16 110/71 96 08/24/16 23:43 98.7 80 16 118/81 98 08/24/16 20:32 98.2 80 16 103/61 97 08/24/16 20:00 76 08/24/16 16:00 99.1 66 16 99/60 97 08/24/16 12:30 97.6 59 12 107/75 99 Room Air Result Diagram: 08/23/16 0549 (1) Drug overdose (2) Hypocalcemia (3) SIRS (systemic inflammatory response syndrome) (4) Renal failure (5) Hyperkalemia (6) Lactic acidosis (7) Altered mental status (8) Severe sepsis (9) Elevated troponin (10) Severe metabolic acidosis (11) Acute kidney failure (12) Leukocytosis (13) Hip hematoma, right (14) Small right middle lobe consolidation (15) Rhabdomyolysis (16) Compartment syndrome of right lower extremity Problem Qualifiers (1) Drug overdose: Qualified Code: T50.904A - Drug overdose, undetermined intent, initial encounter (2) Acute kidney failure: Qualified Code: N17.9 - Acute renal failure, unspecified acute renal failure type (3) Leukocytosis: Qualified Code: D72.829 - Leukocytosis, unspecified type Saw Turner MD Aug 25, 2016 12:21
--- NOTE | 2016-08-25 14:15 | HHI.PR ---
Subjective Remarks Follow up for medial and lateral thigh compartment syndrome s/p surgery. Ms. Sahu is doing well. No acute concerns. Denies any chest pain, SOB, fever, chills. Objective Vitals Vital Signs Date Time Temp Pulse Resp B/P Pulse Ox O2 Delivery O2 Flow Rate FiO2 08/25/16 12:00 98.8 85 18 119/82 97 08/25/16 08:00 97.4 75 17 105/71 97 08/25/16 04:16 97.9 69 16 110/71 96 08/24/16 23:43 98.7 80 16 118/81 98 08/24/16 20:32 98.2 80 16 103/61 97 08/24/16 20:00 76 08/24/16 16:00 99.1 66 16 99/60 97 I/O 08/24/16 08/24/16 08/24/16 08/25/16 08/25/16 08/25/16 07:00 15:00 23:00 07:00 15:00 23:00 Intake Total 0 ml 800 ml 760 ml 580 ml Output Total 100 ml 15 ml 85 ml 100 ml 25 ml Balance -100 ml 785 ml 675 ml 480 ml -25 ml Intake Oral 760 ml 580 ml IV Total 0 ml 200 ml 0 ml 0 ml Other 600 ml Drainage Total 100 ml 15 ml 85 ml 100 ml 25 ml # Voids 2 3 2 Result Diagram: 08/23/16 0549 Imaging Last Impressions Liver Biopsy CT 08/13/16 0000 Signed Impressions: Service Date/Time: Saturday, August 13, 2016 12:42 - CONCLUSION: Uncomplicated CT guided biopsy. Raymundo Agarwal MD Chest X-Ray 08/09/16 0000 Signed Impressions: Service Date/Time: Tuesday, August 09, 2016 19:30 - CONCLUSION: 1. Interval placement of double-lumen central venous line. 2. Hazy opacity at the lung bases with mild blunting of the left costophrenic angle which could indicate a small effusion. Nael Zuñiga MD Catheter Placement X-Ray 07/30/16 0000 Signed Impressions: Service Date/Time: Saturday, July 30, 2016 14:14 - CONCLUSION: Uncomplicated line placement as above. Judson Cee MD Brain MRI 07/29/16 0000 Signed Impressions: Service Date/Time: July 13:34 - CONCLUSION: 1. Abnormal examination of the brain demonstrating areas of T2 signal and abnormal diffusion signal involving the globus pallidus bilaterally and the mesial temporal lobes bilaterally. Primary considerations would include carbon monoxide poisoning versus other partial anoxic brain injury. Please see above discussion. Aamir Narayanan MD Abdomen Ultrasound 07/26/16 0000 Signed Impressions: Service Date/Time: Tuesday, July 26, 2016 10:21 - CONCLUSION: 1. Small amount of free fluid adjacent to the lower poles of both kidneys. 2. Obscuration of the head of the pancreas, distal IVC and aorta due to overlying bowel gas. 3. Otherwise negative. Judson Cee MD Lower Extremity CT 07/25/16 0000 Signed Impressions: Service Date/Time: Monday, July 25, 2016 18:54 - CONCLUSION: Extensive nonspecific myositis of the right thigh, also involves gluteus medius and minimus proximally and at least medial gastrocnemius below the knee. Infectious/inflammatory and ischemic etiologies would be in the differential. No gas bubbles are seen to substantiate necrotizing fasciitis. No organized/drainable abscess. Glenroy Sheffield MD Hip and Pelvis X-Ray 07/25/16 0000 Signed Impressions: Service Date/Time: Monday, July 25, 2016 16:52 - CONCLUSION: Intact pelvis and right hip. Nonspecific surrounding soft tissue swelling Glenroy Sheffield MD Head CT 07/25/16 0000 Signed Impressions: Service Date/Time: Monday, July 25, 2016 14:38 - CONCLUSION: Negative noncontrast head CT. Glenroy Sheffield MD Chest CT 07/25/16 0000 Signed Impressions: Service Date/Time: Monday, July 25, 2016 16:37 - CONCLUSION: Focal dense consolidation right middle lobe, nonspecific but most likely infectious or inflammatory. Also a 3 mm right basilar pulmonary nodule Followup noncontrast chest CT in a few months recommended to confirm resolution/stability. Glenroy Sheffield MD Abdomen/Pelvis CT 07/25/16 0000 Signed Impressions: Service Date/Time: Monday, July 25, 2016 16:37 - CONCLUSION: 1. Fatty liver and 21 mm right ovarian cyst. Otherwise, no acute abnormality seen within the abdomen or pelvis. 2. Swollen, heterogeneous right hip musculature, primarily gluteus medius and minimus, rectus femoris and vastus lateralis and the adductor muscles. This is nonspecific but suggests a subacute hematoma of these structures. Nothing organized/measurable. 3. Chronic L5 pars defects with grade 2 L5/S1 spondylolisthesis. Glenroy Sheffield MD Objective Remarks GENERAL: AOx3, NAD. SKIN: Warm and dry. HEAD: Normocephalic. EYES: No scleral icterus. No injection or drainage. NECK: Supple, trachea midline. No JVD or lymphadenopathy. CARDIOVASCULAR: Regular rate and rhythm without murmurs, gallops, or rubs. RESPIRATORY: Breath sounds equal bilaterally. No accessory muscle use. GASTROINTESTINAL: Abdomen soft, non-tender, nondistended. MUSCULOSKELETAL: No cyanosis, or edema. Wound vac placed on the right thigh. BACK: Nontender without obvious deformity. No CVA tenderness. Procedures 08/24/2016 Washout of the right thigh removal of acellular matrix and placement of the wound VAC. 08/16/2016 Washout of the fasciotomy site with reattachment of acellular matrix and wound Vac. 08/06/2016 Washout of the fasciotomy site and placement of acellular matrix coverage with wound VAC placement. 07/26/2016 Pulse irrigation of the medial and lateral fasciotomy, closure of the medial wound, partial closure of the lateral wound and large wound Vac placement. 07/25/2016 Medial and lateral fasciotomy and compartment release of the thigh with right gluteal area. A/P Problem List: (1) Compartment syndrome of right lower extremity ICD Code: T79.A21A Status: Acute (2) Rhabdomyolysis ICD Code: M62.82 Status: Resolved (3) Drug overdose ICD Code: T50.901A Status: Resolved (4) Acute kidney failure ICD Code: N17.9 Status: Acute (5) Small right middle lobe consolidation Status: Acute (6) Hip hematoma, right ICD Code: S70.01XA Status: Acute Assessment and Plan Ms. Sahu is a 30 year old female who was admitted to the hospital on 2015 to the ICU due to drug overdose, right sided numbness, hyperkalemia, CARLITO, hypotension, liver enzyme elevation, troponin elevation. Cardiology was contacted on the day of admission, STEMI was not suspected by cardiology. Patient admitted to using cocaine night prior to this admission. She also uses heroine. Patient right thigh was noted to be swollen with severe tenderness. Subsequently, patient underwent fasciotomy for compartment syndrome. Wound vac was placed. Patient underwent several surgical intervention by Dr. Turner with regards to her right thigh. Patient also required hemodialysis with regards to her CARLITO. Due to improvement of her renal function, hemodialysis has been discontinued. - Right medial/lateral thigh compartment syndrome - Status post right fasciotomy and wound VAC placement by Dr. Turner - Plastic surgery on board for possible skin graft. - Continue oxycodone, morphine when necessary for pain - s/p Washout of the right thigh removal of acellular matrix and placement of the wound VAC on 08/24/2016. - Possible Split thickness skin graft 4-5 days. - Severe sepsis - Escherichia coli urinary tract infection - Currently resolved. Infectious disease followed this patient. Currently not on any abx for UTI. - Patient received Vanc, zosyn and later Daptomycin and Levaquin. - Acute kidney injury - Creatinine 2.32 on 08/20/2016. - Acute rhabdomyolysis. CPK [id number] on 07/25/2016 ==> 118 on 08/07/2016. - Continue normal saline to 75 cc per hour. Nephrology following. - Vas-Cath removed. Patient is not on dialysis anymore. - Macrocytic anemia - Thrombocytopenia - Transfused total 4 units PRBCs, 2 pack platelets, 2 FFP 2 cryo-since admission - currently Hgb stable - 8.7 on 08/20/2016. - Delirium - Polysubstance abuse including cocaine/heroine - Use PRN Ativan for anxiety and oxycodone/morphine as needed for pain. - CT of the head 07/25 revealed no acute intracranial findings. Continue aspirin, thiamine and multivitamins. - MRI brain 07/29 revealed T2 signal abnormality globus pallidus and mesial temporal lobe bilaterally. - EEG 07/30 revealed slowing system with moderate diffuse encephalopathy. No seizure activity. - Psychiatry lifted [place] act 07/29/2016 - neurology evaluated the patient and feels that MRI results are from drug overdose. - Ophthalmology exam negative for Bre-Sylvia rings. - Mild Respiratory insufficiency secondary to pneumonia/metabolic acidosis - Small consolidation right middle lobe - Right basilar pulmonary nodule 3 mm - follow-up CT chest 3 months recommended - Tobacco abuse. - now on room air, has cough but nonproductive, continue incentive spirometry , duo nebs. - CT chest 07/25/2016 revealed right middle lobe infiltrate along with 3 mm right basilar pulmonary nodule. - Chest x-ray 07/26/2016 reveals no significant cardio pulmonary findings - Sinus tachycardia - NSTEMI - likely due to cocaine abuse - Hypertension - Continue Norvasc 10mg. Clonidine PRN. - Transaminitis - resolved. - Hyperammonemia - likely due to rhabdomyolysis, hypotension. - CT of the abdomen and pelvis shows fatty liver/21 mm right ovarian cyst - Negative hepatitis panel - Xifaxan 550 twice a day/lactulose 30mg 3 times a day for elevated ammonia. - S/P liver biopsy 08/13/16 - showed minimal steatosis. Full code. SCDs. Problem Qualifiers (1) Drug overdose: Qualified Code: T50.904A - Drug overdose, undetermined intent, initial encounter (2) Acute kidney failure: Qualified Code: N17.9 - Acute renal failure, unspecified acute renal failure type Sandie Sheikh DO Aug 25, 2016 2:15 pm
[2016-08-25 16:00] VITALS: BP 124/82; PULSE 84; RESP 18; TEMP 98.7; O2SAT 99
[2016-08-25 20:00] VITALS: BP 110/78; PULSE 86; RESP 17; TEMP 98.1; O2SAT 98
[2016-08-26] VITALS: BP 125/85; PULSE 87; RESP 17; TEMP 97.4; O2SAT 98
[2016-08-26 08:00] VITALS: BP 125/78; PULSE 74; RESP 17; TEMP 97.3; O2SAT 97
[2016-08-26] MEDS: FOLIC ACID 1 MG TAB PO SCH (09:27)
[2016-08-26] MEDS: SODIUM CHLORIDE 0.9% FLUSH 5 ML FLUSH IV FLUSH SCH (09:27)
[2016-08-26] MEDS: LACTULOSE SYRUP 20 GM/30 ML CUP PO SCH ×2 (09:27→20:56)
[2016-08-26] MEDS: THIAMINE HCL 100 MG TAB PO SCH (09:27)
[2016-08-26] MEDS: RIFAXIMIN 550 MG TAB PO SCH ×2 (09:27→20:55)
[2016-08-26] MEDS: FAMOTIDINE 20 MG TAB PO SCH ×2 (09:28→20:55)
[2016-08-26] MEDS: cloNIDine HCL 0.1 MG TAB PO SCH ×2 (09:28→20:58)
[2016-08-26] MEDS: MULTIVITAMIN TAB PO SCH (09:28)
[2016-08-26] MEDS: ASPIRIN EC 325 MG TABEC PO SCH (09:28)
[2016-08-26 12:00] VITALS: BP 108/56; PULSE 73; RESP 17; TEMP 97.4; O2SAT 94
[2016-08-26] MEDS: FERROUS SULFATE 325 MG (65 MG ELEMENTAL IRON) TAB PO SCH ×2 (12:16→18:07)
--- NOTE | 2016-08-26 12:30 | HHI.PR ---
Subjective Remarks Denies fevers/chills denies cp/sob Objective Vitals Vital Signs Date Time Temp Pulse Resp B/P Pulse Ox O2 Delivery O2 Flow Rate FiO2 08/26/16 08:00 97.3 74 17 125/78 97 08/26/16 00:00 97.4 87 17 125/85 98 08/25/16 20:00 98.1 86 17 110/78 98 08/25/16 16:00 98.7 84 18 124/82 99 I/O 08/25/16 08/25/16 08/25/16 08/26/16 08/26/16 08/26/16 07:00 15:00 23:00 07:00 15:00 23:00 Intake Total 580 ml 480 ml 240 ml Output Total 100 ml 525 ml 50 ml 250 ml Balance 480 ml -525 ml 430 ml -10 ml Intake Oral 580 ml 480 ml 240 ml IV Total 0 ml Output Urine Total 500 ml 250 ml Drainage Total 100 ml 25 ml 50 ml # Voids 2 1 # Bowel Movements 0 Result Diagram: 08/23/16 0549 Imaging Last Impressions Liver Biopsy CT 08/13/16 0000 Signed Impressions: Service Date/Time: Saturday, August 13, 2016 12:42 - CONCLUSION: Uncomplicated CT guided biopsy. Raymundo Agarwal MD Chest X-Ray 08/09/16 0000 Signed Impressions: Service Date/Time: Tuesday, August 09, 2016 19:30 - CONCLUSION: 1. Interval placement of double-lumen central venous line. 2. Hazy opacity at the lung bases with mild blunting of the left costophrenic angle which could indicate a small effusion. Nael Zuñiga MD Catheter Placement X-Ray 07/30/16 0000 Signed Impressions: Service Date/Time: Saturday, July 30, 2016 14:14 - CONCLUSION: Uncomplicated line placement as above. Judson Cee MD Brain MRI 07/29/16 0000 Signed Impressions: Service Date/Time: July 13:34 - CONCLUSION: 1. Abnormal examination of the brain demonstrating areas of T2 signal and abnormal diffusion signal involving the globus pallidus bilaterally and the mesial temporal lobes bilaterally. Primary considerations would include carbon monoxide poisoning versus other partial anoxic brain injury. Please see above discussion. Aamir Narayanan MD Abdomen Ultrasound 07/26/16 0000 Signed Impressions: Service Date/Time: Tuesday, July 26, 2016 10:21 - CONCLUSION: 1. Small amount of free fluid adjacent to the lower poles of both kidneys. 2. Obscuration of the head of the pancreas, distal IVC and aorta due to overlying bowel gas. 3. Otherwise negative. Judson Cee MD Lower Extremity CT 07/25/16 0000 Signed Impressions: Service Date/Time: Monday, July 25, 2016 18:54 - CONCLUSION: Extensive nonspecific myositis of the right thigh, also involves gluteus medius and minimus proximally and at least medial gastrocnemius below the knee. Infectious/inflammatory and ischemic etiologies would be in the differential. No gas bubbles are seen to substantiate necrotizing fasciitis. No organized/drainable abscess. Glenroy Sheffield MD Hip and Pelvis X-Ray 07/25/16 Signed Impressions: Service Date/Time: Monday, July 25, 2016 16:52 - CONCLUSION: Intact pelvis and right hip. Nonspecific surrounding soft tissue swelling Glenroy Sheffield MD Head CT 07/25/16 0000 Signed Impressions: Service Date/Time: Monday, July 25, 2016 14:38 - CONCLUSION: Negative noncontrast head CT. Glenroy Sheffield MD Chest CT 07/25/16 0000 Signed Impressions: Service Date/Time: Monday, July 25, 2016 16:37 - CONCLUSION: Focal dense consolidation right middle lobe, nonspecific but most likely infectious or inflammatory. Also a 3 mm right basilar pulmonary nodule Followup noncontrast chest CT in a few months recommended to confirm resolution/stability. Glenroy Sheffield MD Abdomen/Pelvis CT 07/25/16 0000 Signed Impressions: Service Date/Time: Monday, July 25, 2016 16:37 - CONCLUSION: 1. Fatty liver and 21 mm right ovarian cyst. Otherwise, no acute abnormality seen within the abdomen or pelvis. 2. Swollen, heterogeneous right hip musculature, primarily gluteus medius and minimus, rectus femoris and vastus lateralis and the adductor muscles. This is nonspecific but suggests a subacute hematoma of these structures. Nothing organized/measurable. 3. Chronic L5 pars defects with grade 2 L5/S1 spondylolisthesis. Glenroy Sheffield MD Objective Remarks GENERAL: 30-year-old female. Critically ill currently resting in bed in no acute distress CARDIOVASCULAR: RRR Faint systolic 2/6 murmur RESPIRATORY: clear to auscultation w no wheezing this morning. GASTROINTESTINAL: Abdomen soft, non-tender, nondistended. Hypoactive bowel sounds. Abrasions. MUSCULOSKELETAL: Right thigh currently with wound VAC lateral aspect. Right hip tender with restricted mobility. Positive peripheral edema right greater than left lower extremity. NEUROLOGICAL: Awake and alert to person, place and year. Motor grossly within normal limits. Procedures 08/24/2016 Washout of the right thigh removal of acellular matrix and placement of the wound VAC. 08/16/2016 Washout of the fasciotomy site with reattachment of acellular matrix and wound Vac. 08/06/2016 Washout of the fasciotomy site and placement of acellular matrix coverage with wound VAC placement. 07/26/2016 Pulse irrigation of the medial and lateral fasciotomy, closure of the medial wound, partial closure of the lateral wound and large wound Vac placement. 07/25/2016 Medial and lateral fasciotomy and compartment release of the thigh with right gluteal area. Medications and IVs Current Medications Medications (Trade) Dose Ordered Sig/Sara Route Start Time Stop Time Status Last Admin (Ecotrin Ec) 325 mg DAILY PO 07/26/16 09:00 08/26/16 09:28 (Morphine Inj) 4 mg Q2H PRN IV 07/25/16 23:45 08/23/16 14:30 (Theragran) 1 tab DAILY PO 07/26/16 09:00 08/26/16 09:28 (Folate) 1 mg DAILY PO 07/26/16 09:00 08/26/16 09:27 (Zofran Inj) 4 mg Q6H PRN IV 07/26/16 08:00 07/29/16 04:18 (D50w (Vial) Inj) 25 ml UNSCH PRN IV PUSH 07/26/16 08:15 (Glucagon Inj) 1 mg UNSCH PRN OTHER 07/26/16 08:15 (Xifaxan) 550 mg BID PO 07/26/16 10:00 08/26/16 09:27 (Apresoline Inj) 10 mg Q1HR PRN IV PUSH 07/28/16 09:30 08/01/16 09:30 (Nitroglycerin 2% Oint) 1 inch Q6H PRN TOPICAL 07/28/16 09:30 (Pepcid) 10 mg BID PO 07/29/16 09:00 08/26/16 09:28 (Pill Splitter) 1 ea UNSCH PRN OTHER 07/29/16 09:00 (Roxicodone) 5 mg Q6H PRN PO 07/29/16 09:00 08/26/16 12:17 (Lactulose Liq) 30 ml BID PO 07/30/16 21:00 08/26/16 09:27 (NS Flush) UNSCH PRN IVF 07/30/16 16:15 (Heparin Inj) UNSCH PRN IVF 07/30/16 16:15 08/11/16 11:35 (Catapres) 0.1 mg Q12HR PO 08/02/16 11:00 08/26/16 09:28 (Norvasc) 10 mg DAILY PO 08/03/16 09:00 08/26/16 09:28 (Vitamin B1) 100 mg DAILY PO 08/02/16 11:00 08/26/16 09:27 (Tessalon) 100 mg TID PRN PO 08/13/16 19:30 08/13/16 20:26 (Lopressor) 12.5 mg Q8HR PRN PO 08/15/16 15:00 08/15/16 15:50 (Ferrous Sulfate) 325 mg BID@12,17 PO 08/18/16 17:00 08/26/16 12:16 Urinary Catheter: No Vascular Central Line Catheter: No A/P Problem List: (1) Compartment syndrome of right lower extremity ICD Code: T79.A21A Status: Acute (2) Rhabdomyolysis ICD Code: M62.82 Status: Resolved (3) Drug overdose ICD Code: T50.901A Status: Resolved (4) Acute kidney failure ICD Code: N17.9 Status: Acute (5) Small right middle lobe consolidation Status: Acute (6) Hip hematoma, right ICD Code: S70.01XA Status: Acute Assessment and Plan Ms. Sahu is a 30 year old female who was admitted to the hospital on 2015 to the ICU due to drug overdose, right sided numbness, hyperkalemia, CARLITO, hypotension, liver enzyme elevation, troponin elevation. Cardiology was contacted on the day of admission, STEMI was not suspected by cardiology. Patient admitted to using cocaine night prior to this admission. She also uses heroine. Patient right thigh was noted to be swollen with severe tenderness. Subsequently, patient underwent fasciotomy for compartment syndrome. Wound vac was placed. Patient underwent several surgical intervention by Dr. Turner with regards to her right thigh. Patient also required hemodialysis with regards to her CARLITO. Due to improvement of her renal function, hemodialysis has been discontinued. - Right medial/lateral thigh compartment syndrome - Status post right fasciotomy and wound VAC placement by Dr. Turner - Plastic surgery on board for possible skin graft. - Continue oxycodone, morphine when necessary for pain - s/p Washout of the right thigh removal of acellular matrix and placement of the wound VAC on 08/24/2016. - sp placement of new wound vac by surgery ---> Possible Split thickness skin graft 4-5 days. - Severe sepsis - Escherichia coli urinary tract infection - Currently resolved. Infectious disease followed this patient. Currently not on any abx for UTI. - Patient received Vanc, zosyn and later Daptomycin and Levaquin. - Acute kidney injury - Improving, urine output acceptable. Continue to monitor strict I's and O's, monitor creatinine. I will order a BMP today to see how creatinine is doing. - Acute rhabdomyolysis. CPK [id number] on 07/25/2016 ==> 118 on 08/07/2016. - Continue normal saline to 75 cc per hour. Nephrology following. - Vas-Cath removed. Patient is not on dialysis anymore. - Macrocytic anemia - Thrombocytopenia - Transfused total 4 units PRBCs, 2 pack platelets, 2 FFP 2 cryo-since admission - currently Hgb stable - 8.7 on 08/20/2016. - Monitor hemoglobin. - Delirium - Polysubstance abuse including cocaine/heroine - Use PRN Ativan for anxiety and oxycodone/morphine as needed for pain. - CT of the head 07/25 revealed no acute intracranial findings. Continue aspirin, thiamine and multivitamins. - MRI brain 07/29 revealed T2 signal abnormality globus pallidus and mesial temporal lobe bilaterally. - EEG 07/30 revealed slowing system with moderate diffuse encephalopathy. No seizure activity. - Psychiatry lifted Os[place] act 07/29/2016 - neurology evaluated the patient and feels that MRI results are from drug overdose. - Ophthalmology exam negative for Bre-Sylvia rings. - Mild Respiratory insufficiency secondary to pneumonia/metabolic acidosis - Small consolidation right middle lobe - Right basilar pulmonary nodule 3 mm - follow-up CT chest 3 months recommended - Tobacco abuse. - now on room air, has cough but nonproductive, continue incentive spirometry , duo nebs. - CT chest 07/25/2016 revealed right middle lobe infiltrate along with 3 mm right basilar pulmonary nodule. - Chest x-ray 07/26/2016 reveals no significant cardio pulmonary findings - Sinus tachycardia - NSTEMI - likely due to cocaine abuse - Hypertension - Continue Norvasc 10mg. Clonidine PRN. - Transaminitis - resolved. - Hyperammonemia - likely due to rhabdomyolysis, hypotension. - CT of the abdomen and pelvis shows fatty liver/21 mm right ovarian cyst - Negative hepatitis panel - Xifaxan 550 twice a day/lactulose 30mg 3 times a day for elevated ammonia. - S/P liver biopsy 08/13/16 - showed minimal steatosis. Full code. SCDs. Discharge Planning Continue to monitor in the medical/surgical floor. Problem Qualifiers (1) Drug overdose: Qualified Code: T50.904A - Drug overdose, undetermined intent, initial encounter (2) Acute kidney failure: Qualified Code: N17.9 - Acute renal failure, unspecified acute renal failure type Daniel Goncalves MD Aug 26, 2016 12:30
[2016-08-26 14:10] LABS: HEMATOCRIT 21.4 % (35.0-46.0); MEAN CELL VOLUME 88.8 FL (80.0-100.0); MEAN CORPUSCULAR HEMOGLOBIN 30.8 PG (27.0-34.0); MEAN CORPUSCULAR HGB CONC 34.7 % (32.0-36.0); PLATELET COUNT 163 TH/MM3 (150-450); RED BLOOD COUNT 2.41 MIL/MM3 (4.00-5.30); RED CELL DISTRIBUTION WIDTH 14.9 % (11.6-17.2); REVIEW FLAG FINAL; WHITE BLOOD COUNT 3.3 TH/MM3 (4.0-11.0)
[2016-08-26 14:14] LABS: POTASSIUM 3.5 MEQ/L (3.5-5.1)
[2016-08-26 16:00] VITALS: BP 128/73; PULSE 73; RESP 17; TEMP 97.5; O2SAT 90
--- NOTE | 2016-08-26 16:56 | PD.PLAS.PN ---
Subjective Remarks Patient stable. Cultures are growing heavy growth of Indigo - Need to remove the VAC and start open wound care to be able to shower and use soap and water on the wound daily - even BID. Will need appropriate antifungal medications through the ID help as well. As to the skin graft - an additional 7 to 10 days are needed before an attempt at the skin graft can be made - presently it is likely to be affected adversely by the indigo in the wound. Will order change in the dressing regimen Vital Signs Date Time Temp Pulse Resp B/P Pulse Ox O2 Delivery O2 Flow Rate FiO2 08/26/16 16:00 97.5 73 17 128/73 90 08/26/16 12:00 97.4 73 17 108/56 94 08/26/16 08:00 97.3 74 17 125/78 97 08/26/16 00:00 97.4 87 17 125/85 98 08/25/16 20:00 98.1 86 17 110/78 98 I/O 08/25/16 08/25/16 08/25/16 08/26/16 08/26/16 08/26/16 06:59 14:59 22:59 06:59 14:59 22:59 Intake Total 580 ml 480 ml 240 ml Output Total 100 ml 525 ml 50 ml 250 ml 325 ml Balance 480 ml -525 ml 430 ml -10 ml -325 ml Intake Oral 580 ml 480 ml 240 ml IV Total 0 ml Output Urine Total 500 ml 250 ml 300 ml Drainage Total 100 ml 25 ml 50 ml 25 ml # Voids 2 1 # Bowel Movements 0 0 Laboratory Tests Test 08/26/16 13:35 White Blood Count 3.3 Red Blood Count 2.41 Hemoglobin 7.4 Hematocrit 21.4 Mean Corpuscular Volume 88.8 Mean Corpuscular Hemoglobin 30.8 Mean Corpuscular Hemoglobin 34.7 Concent Red Cell Distribution Width 14.9 Platelet Count 163 Mean Platelet Volume 7.5 Sodium Level 140 Potassium Level 3.5 Chloride Level 106 Carbon Dioxide Level 26.0 Anion Gap 8 Blood Urea Nitrogen 8 Creatinine 1.43 Estimat Glomerular Filtration 43 Rate Random Glucose 119 Calcium Level 8.3 Ammonia 20 Date/Time Procedure Status Source Growth 08/24/16 11:09 Gram Stain - Final Complete Wound Other 08/24/16 11:09 Wound Culture - Final Complete Indigo Albicans 08/24/16 11:09 Fungal Smear - Final Resulted Wound Other NO FUNGAL ELEMENTS SEEN. 08/24/16 11:09 Fungal Culture Resulted Wound Other Pending 08/24/16 11:09 Acid Fast Stain - Final Resulted Wound Other NO ACID FAST BACILLI SEEN 08/24/16 11:09 Mycobacterial Culture Resulted Wound Other Pending Result Diagram: 08/26/16 1335 08/26/16 1335 Alejandro Guerra MD Aug 26, 2016 16:56
[2016-08-26 20:00] VITALS: BP 105/74; PULSE 82; RESP 16; TEMP 98.4; O2SAT 98
[2016-08-27] VITALS (7 sets, daily range): BP systolic 112–136; BP diastolic 74–99; PULSE 77–91; RESP 14–20; TEMP 98.4–99.3; O2SAT 97–100
[2016-08-27 04:36] LABS: AUTOMATED NEUTROPHIL # 1.6 TH/MM3 (1.8-7.7); BASOPHIL % 0.6 % (0.0-2.0); EOSINOPHIL # 0.2 TH/MM3 (0-0.4); EOSINOPHIL % 5.6 % (0.0-4.0); HEMATOCRIT 21.9 % (35.0-46.0); HEMO FLAGS DIFF FINAL; LYMPH % 37.1 % (9.0-44.0); LYMPHOCYTE # 1.2 TH/MM3 (1.0-4.8); MEAN CELL VOLUME 88.7 FL (80.0-100.0); MEAN CORPUSCULAR HEMOGLOBIN 31.4 PG (27.0-34.0); MEAN CORPUSCULAR HGB CONC 35.4 % (32.0-36.0); MONO % 7.4 % (0.0-8.0); NEUT % 49.3 % (16.0-70.0); PLATELET COUNT 174 TH/MM3 (150-450); RED BLOOD COUNT 2.47 MIL/MM3 (4.00-5.30); RED CELL DISTRIBUTION WIDTH 15.4 % (11.6-17.2); WHITE BLOOD COUNT 3.3 TH/MM3 (4.0-11.0)
[2016-08-27 04:54] LABS: ALT (GPT) 16 U/L (10-53); ANION GAP 10 MEQ/L (5-15); AST (GOT) 17 U/L (15-37); BLOOD UREA NITROGEN 9 MG/DL (7-18); CHLORIDE 109 MEQ/L (98-107); GLOMERULAR FILTRATION RATE 43 ML/MIN (>89); MAGNESIUM 1.7 MG/DL (1.5-2.5); POTASSIUM 3.7 MEQ/L (3.5-5.1); SODIUM (NA) 143 MEQ/L (136-145)
[2016-08-27 04:57] LABS: ALKALINE PHOSPHATASE 65 U/L (45-117); TOTAL BILIRUBIN ADULT 0.2 MG/DL (0.2-1.0)
[2016-08-27] MEDS: cloNIDine HCL 0.1 MG TAB PO SCH ×2 (08:20→21:16)
[2016-08-27] MEDS: ASPIRIN EC 325 MG TABEC PO SCH (08:47)
[2016-08-27] MEDS: LACTULOSE SYRUP 20 GM/30 ML CUP PO SCH ×2 (08:47→21:16)
[2016-08-27] MEDS: RIFAXIMIN 550 MG TAB PO SCH ×2 (08:48→21:16)
[2016-08-27] MEDS: FOLIC ACID 1 MG TAB PO SCH (08:48)
[2016-08-27] MEDS: THIAMINE HCL 100 MG TAB PO SCH (08:48)
[2016-08-27] MEDS: MULTIVITAMIN TAB PO SCH (08:48)
[2016-08-27] MEDS: FAMOTIDINE 20 MG TAB PO SCH ×2 (08:48→21:16)
--- NOTE | 2016-08-27 11:48 | HHI.PR ---
Subjective Remarks Patient feels very tired and fatigued most of the time denies cp/sob denies fevers/chills Objective Vitals Vital Signs Date Time Temp Pulse Resp B/P Pulse Ox O2 Delivery O2 Flow Rate FiO2 08/27/16 08:00 98.5 83 16 112/76 97 08/27/16 00:00 98.6 91 20 118/74 100 08/26/16 20:00 98.4 82 16 105/74 98 08/26/16 16:00 97.5 73 17 128/73 90 08/26/16 12:00 97.4 73 17 108/56 94 I/O 08/26/16 08/26/16 08/26/16 08/27/16 08/27/16 08/27/16 07:00 15:00 23:00 07:00 15:00 23:00 Intake Total 240 ml 420 ml 0 ml Output Total 250 ml 325 ml 350 ml 300 ml Balance -10 ml -325 ml 70 ml -300 ml Intake Oral 240 ml 420 ml IV Total 0 ml 0 ml Output Urine Total 250 ml 300 ml 350 ml 300 ml Drainage Total 25 ml # Bowel Movements 0 0 0 Result Diagram: 08/27/16 0330 08/27/16 0330 Imaging Last Impressions Liver Biopsy CT 08/13/16 0000 Signed Impressions: Service Date/Time: Saturday, August 13, 2016 12:42 - CONCLUSION: Uncomplicated CT guided biopsy. Raymundo Agarwal MD Chest X-Ray 08/09/16 0000 Signed Impressions: Service Date/Time: Tuesday, August 09, 2016 19:30 - CONCLUSION: 1. Interval placement of double-lumen central venous line. 2. Hazy opacity at the lung bases with mild blunting of the left costophrenic angle which could indicate a small effusion. Nael Zuñiga MD Catheter Placement X-Ray 07/30/16 0000 Signed Impressions: Service Date/Time: Saturday, July 30, 2016 14:14 - CONCLUSION: Uncomplicated line placement as above. Judson Cee MD Brain MRI 07/29/16 0000 Signed Impressions: Service Date/Time: July 13:34 - CONCLUSION: 1. Abnormal examination of the brain demonstrating areas of T2 signal and abnormal diffusion signal involving the globus pallidus bilaterally and the mesial temporal lobes bilaterally. Primary considerations would include carbon monoxide poisoning versus other partial anoxic brain injury. Please see above discussion. Aamir Narayanan MD Abdomen Ultrasound 07/26/16 0000 Signed Impressions: Service Date/Time: Tuesday, July 26, 2016 10:21 - CONCLUSION: 1. Small amount of free fluid adjacent to the lower poles of both kidneys. 2. Obscuration of the head of the pancreas, distal IVC and aorta due to overlying bowel gas. 3. Otherwise negative. Judson Cee MD Lower Extremity CT 07/25/16 0000 Signed Impressions: Service Date/Time: Monday, July 25, 2016 18:54 - CONCLUSION: Extensive nonspecific myositis of the right thigh, also involves gluteus medius and minimus proximally and at least medial gastrocnemius below the knee. Infectious/inflammatory and ischemic etiologies would be in the differential. No gas bubbles are seen to substantiate necrotizing fasciitis. No organized/drainable abscess. Glenroy Sheffield MD Hip and Pelvis X-Ray 07/25/16 0000 Signed Impressions: Service Date/Time: Monday, July 25, 2016 16:52 - CONCLUSION: Intact pelvis and right hip. Nonspecific surrounding soft tissue swelling Glenroy Sheffield MD Head CT 07/25/16 0000 Signed Impressions: Service Date/Time: Monday, July 25, 2016 14:38 - CONCLUSION: Negative noncontrast head CT. Glenroy Sheffield MD Chest CT 07/25/16 0000 Signed Impressions: Service Date/Time: Monday, July 25, 2016 16:37 - CONCLUSION: Focal dense consolidation right middle lobe, nonspecific but most likely infectious or inflammatory. Also a 3 mm right basilar pulmonary nodule Followup noncontrast chest CT in a few months recommended to confirm resolution/stability. Glenroy Sheffield MD Abdomen/Pelvis CT 07/25/16 0000 Signed Impressions: Service Date/Time: Monday, July 25, 2016 16:37 - CONCLUSION: 1. Fatty liver and 21 mm right ovarian cyst. Otherwise, no acute abnormality seen within the abdomen or pelvis. 2. Swollen, heterogeneous right hip musculature, primarily gluteus medius and minimus, rectus femoris and vastus lateralis and the adductor muscles. This is nonspecific but suggests a subacute hematoma of these structures. Nothing organized/measurable. 3. Chronic L5 pars defects with grade 2 L5/S1 spondylolisthesis. Glenroy Sheffield MD Objective Remarks GENERAL: 30-year-old female. NAD, not in respiratory distress. CARDIOVASCULAR: S1 and S2 present, regular rate and rhythm, no murmur rubs or gallops. RESPIRATORY: clear to auscultation w no wheezing this morning. GASTROINTESTINAL: Abdomen soft, non-tender, nondistended. Hypoactive bowel sounds. Abrasions. MUSCULOSKELETAL: Right thigh currently with wound VAC lateral aspect. Right hip tender with restricted mobility. Positive peripheral edema right greater than left lower extremity. NEUROLOGICAL: Awake and alert to person, place and year. Motor grossly within normal limits. SKIN: Pale skin. Right thigh wound covered by wound VAC Procedures 08/24/2016 Washout of the right thigh removal of acellular matrix and placement of the wound VAC. 08/16/2016 Washout of the fasciotomy site with reattachment of acellular matrix and wound Vac. 08/06/2016 Washout of the fasciotomy site and placement of acellular matrix coverage with wound VAC placement. 07/26/2016 Pulse irrigation of the medial and lateral fasciotomy, closure of the medial wound, partial closure of the lateral wound and large wound Vac placement. 07/25/2016 Medial and lateral fasciotomy and compartment release of the thigh with right gluteal area. Medications and IVs Current Medications Medications (Trade) Dose Ordered Sig/Sara Route Start Time Stop Time Status Last Admin (Ecotrin Ec) 325 mg DAILY PO 07/26/16 09:00 08/27/16 08:47 (Morphine Inj) 4 mg Q2H PRN IV 07/25/16 23:45 08/23/16 14:30 (Theragran) 1 tab DAILY PO 07/26/16 09:00 08/27/16 08:48 (Folate) 1 mg DAILY PO 07/26/16 09:00 08/27/16 08:48 (Zofran Inj) 4 mg Q6H PRN IV 07/26/16 08:00 07/29/16 04:18 (D50w (Vial) Inj) 25 ml UNSCH PRN IV PUSH 07/26/16 08:15 (Glucagon Inj) 1 mg UNSCH PRN OTHER 07/26/16 08:15 (Xifaxan) 550 mg BID PO 07/26/16 10:00 08/27/16 08:48 (Apresoline Inj) 10 mg Q1HR PRN IV PUSH 07/28/16 09:30 08/01/16 09:30 (Nitroglycerin 2% Oint) 1 inch Q6H PRN TOPICAL 07/28/16 09:30 (Pepcid) 10 mg BID PO 07/29/16 09:00 08/27/16 08:48 (Pill Splitter) 1 ea UNSCH PRN OTHER 07/29/16 09:00 (Roxicodone) 5 mg Q6H PRN PO 07/29/16 09:00 08/27/16 12:16 (Lactulose Liq) 30 ml BID PO 07/30/16 21:00 08/27/16 08:47 (NS Flush) UNSCH PRN IVF 07/30/16 16:15 (Heparin Inj) UNSCH PRN IVF 07/30/16 16:15 08/11/16 11:35 (Catapres) 0.1 mg Q12HR PO 08/02/16 11:00 08/26/16 09:28 (Norvasc) 10 mg DAILY PO 08/03/16 09:00 08/27/16 08:47 (Vitamin B1) 100 mg DAILY PO 08/02/16 11:00 08/27/16 08:48 (Tessalon) 100 mg TID PRN PO 08/13/16 19:30 08/13/16 20:26 (Lopressor) 12.5 mg Q8HR PRN PO 08/15/16 15:00 08/15/16 15:50 Ferrous Sulfate 325 mg 325 mg BID@12,17 PO 08/18/16 17:00 08/27/16 12:16 (NS 250 ml Inj) 250 ml @ 15 mls/hr ONCE ONCE IV 08/27/16 12:00 08/28/16 04:39 08/27/16 12:16 (Tylenol) 650 mg Q4H PRN PO 08/27/16 12:00 08/27/16 16:01 (Benadryl) 25 mg Q4H PRN PO 08/27/16 12:00 08/27/16 16:01 Urinary Catheter: No Vascular Central Line Catheter: No A/P Problem List: (1) Compartment syndrome of right lower extremity ICD Code: T79.A21A Status: Resolved (2) Rhabdomyolysis ICD Code: M62.82 Status: Resolved (3) Drug overdose ICD Code: T50.901A Status: Resolved (4) Acute kidney failure ICD Code: N17.9 Status: Resolved (5) Small right middle lobe consolidation Status: Resolved (6) Hip hematoma, right ICD Code: S70.01XA Status: Resolved Assessment and Plan Ms. Sahu is a 30 year old female who was admitted to the hospital on 2015 to the ICU due to drug overdose, right sided numbness, hyperkalemia, CARLITO, hypotension, liver enzyme elevation, troponin elevation. Cardiology was contacted on the day of admission, STEMI was not suspected by cardiology. Patient admitted to using cocaine night prior to this admission. She also uses heroine. Patient right thigh was noted to be swollen with severe tenderness. Subsequently, patient underwent fasciotomy for compartment syndrome. Wound vac was placed. Patient underwent several surgical intervention by Dr. Turner with regards to her right thigh. Patient also required hemodialysis with regards to her CARLITO. Due to improvement of her renal function, hemodialysis has been discontinued. - Right medial/lateral thigh compartment syndrome - Status post right fasciotomy and wound VAC placement by Dr. Turner - Plastic surgery on board for possible skin graft. - Continue oxycodone, morphine when necessary for pain - s/p Washout of the right thigh removal of acellular matrix and placement of the wound VAC on 08/24/2016. - sp placement of new wound vac by surgery ---> Possible Split thickness skin graft 4-5 days. - Severe sepsis - Escherichia coli urinary tract infection - Currently resolved. Infectious disease followed this patient. Currently not on any abx for UTI. - Patient received Vanc, zosyn and later Daptomycin and Levaquin. - Acute kidney injury - patient will return output, creatinine continues to trend down, today 1.42. - Acute rhabdomyolysis. CPK [id number] on 07/25/2016 ==> 118 on 08/07/2016. - Continue normal saline to 75 cc per hour. Nephrology following. - Vas-Cath removed. Patient is not on dialysis anymore. - Macrocytic anemia - Thrombocytopenia - Transfused total 4 units PRBCs, 2 pack platelets, 2 FFP 2 cryo-since admission - currently Hgb stable - 8.7 on 08/20/2016. -Patient has fatigue, tiredness. Likely symptomatic anemia. Hemoglobin low at 7.8 after wound VAC placement. Transfuse 1 unit of PRBCs. - Delirium - Polysubstance abuse including cocaine/heroine - Use PRN Ativan for anxiety and oxycodone/morphine as needed for pain. - CT of the head 07/25 revealed no acute intracranial findings. Continue aspirin, thiamine and multivitamins. - MRI brain 07/29 revealed T2 signal abnormality globus pallidus and mesial temporal lobe bilaterally. - EEG 07/30 revealed slowing system with moderate diffuse encephalopathy. No seizure activity. - Psychiatry lifted [place] act 07/29/2016 - neurology evaluated the patient and feels that MRI results are from drug overdose. - Ophthalmology exam negative for Bre-Sylvia rings. - Mild Respiratory insufficiency secondary to pneumonia/metabolic acidosis - Small consolidation right middle lobe - Right basilar pulmonary nodule 3 mm - follow-up CT chest 3 months recommended - Tobacco abuse. - now on room air, has cough but nonproductive, continue incentive spirometry , duo nebs. - CT chest 07/25/2016 revealed right middle lobe infiltrate along with 3 mm right basilar pulmonary nodule. - Chest x-ray 07/26/2016 reveals no significant cardio pulmonary findings - Sinus tachycardia - NSTEMI - likely due to cocaine abuse - Hypertension - Continue Norvasc 10mg. Clonidine PRN. - Transaminitis - resolved. - Hyperammonemia - likely due to rhabdomyolysis, hypotension. - CT of the abdomen and pelvis shows fatty liver/21 mm right ovarian cyst - Negative hepatitis panel - Xifaxan 550 twice a day/lactulose 30mg 3 times a day for elevated ammonia. - S/P liver biopsy 08/13/16 - showed minimal steatosis. Full code. SCDs. Discharge Planning Continue to monitor in the medical/surgical floor. Problem Qualifiers (1) Drug overdose: Qualified Code: T50.904A - Drug overdose, undetermined intent, initial encounter (2) Acute kidney failure: Qualified Code: N17.9 - Acute renal failure, unspecified acute renal failure type Daniel Goncalves MD Aug 27, 2016 11:48
[2016-08-27] MEDS ORDERED: ACETAMINOPHEN 325 MG TAB PO PRN (12:00)
[2016-08-27] MEDS ORDERED: diphenhydrAMINE HCL 25 MG CAP PO PRN (12:00)
[2016-08-27] MEDS ORDERED: SODIUM CHLOR 0.9% 250 ML INJ 250 ML IV ONE (12:00)
[2016-08-27] MEDS: FERROUS SULFATE 325 MG (65 MG ELEMENTAL IRON) TAB PO SCH ×2 (12:16→17:07)
--- NOTE | 2016-08-27 16:32 | PD.CAR.PN ---
CVT Progress Note Subjective/Hospital Course: Patient with clinical findings of medial and lateral thigh compartment syndrome For OR now Thanks Delaney 07/26/16 Patient underwent yesterday and medial and lateral fasciotomy of the thigh debridement Today she underwent washout the both, closure of the medial fasciotomy skin and wound VAC placement on lateral fasciotomy The lateral fasciotomy will need wound VAC for but 2 weeks and then this can be covered with the partial-thickness skin graft by plastic surgery 07/27/16 Status post the thigh compartment syndrome with medial and lateral fasciotomy of the right leg Yesterday patient went for washout closure and drainage of the medial fasciotomy site while the lateral fasciotomy from hip to the knee remains open Wound VAC in place Hemoglobin now stable and there is no other source of bleeding Patient was in active DIC and fibrinolysis for the first 48 hours and this is now abating Agree with blood and blood products administration Platelets remain stable and unless these drop on the 30,000 would probably not transfuse Patient can be out of bed and should be bearing weight on this leg as much as possible 07/28/16 CHAZ drainage from the medial closure of the thighs decreased but I will leave it in till the swelling decreases and the third space abates for otherwise patient will develop a seroma in this area Lateral incision now covered with a wound VAC is draining minimally Hemoglobin remains stable Plan Starting tomorrow will have wound care assist with changing wound VAC at the bedside and I will consult plastic surgery for grafting of the wound in the near future 07/29/16 Medial compartment is closed and drainage is minimal so we will DC CHAZ Lateral thigh compartment is open clean and we will start wound VAC changes today Eventually patient will go to the OR for another washout and perhaps little more closure of this area but for the most part she will need a skin grafting of this area 07/30/2016 Medial incision is clean and dry Lateral incision wound VAC has been changed yesterday and he looks nice and clean and granulating nicely Patient will need several wound VAC exchange to before graft can be placed in this area Continue care Patient can transfer to the floor from my point 08/05/16 The patient will undergo tomorrow placement of acellular matrix xenograft in the operating room Wound VAC will then remain on it for about 10 days and then after that patient can be grafted This procedure should take about 30 minutes and then patient will be able to go to rehabilitation or even [place] for about 10 days and then return to us for grafting 08/07/16 Patient underwent yesterday washout of her fasciotomy site of the right thigh with placement of a acellular xenograft to improve granulation and the allow for eventual partial-thickness skin graft placement The drainage from the wound VAC at this point will be copious considering the inflammatory reaction that the xenograft induces so this is expected. In addition patient dropped hemoglobin and will be given 2 units of blood The wound VAC will stay on for about 9 days at this point so patient can either stay in our hospital or be transferred possibly to [place] till the time comes to remove the wound VAC for it will have to be done in the operating room At that time area will be ready for grafting or he may need another 10 days of xenograft is a granulation is not sufficient I will consult Dr. Juares to see the patient for skin grafting when the time comes 08/10/16 Wound VAC is in position and drainage has now significantly decreased Patient is excellent distal pulses and leg is warm Patient could move to [place] from my point till the time comes to remove the wound VAC is another week Nothing to add to care let this time 08/12/16 Patient doing well at this time Drainage from the wound VAC is minimal Patient will be taken back to the operating room on Tuesday for evaluation and washout with possible grafting Patient may need another 9 or 10 days of the acellular matrix depending on the granulation tissue present next week or may be graftable next week We'll consult Dr. Juares for the grafting 08/17/16 Patient underwent yesterday washout reapplication off acellular matrix with placement of the wound VAC Incisions are clean and dry, stitches have been removed proximal and distal to the fasciotomy defect and fasciotomies covered with the above mentioned wound VAC Serosanguineous drainage By next week patient will be ready for skin grafting and Dr. Juares will be consulted 08/18/[address] with serosanguineous drainage Patient states she has no pain in this leg anymore Excellent distal flow Grafting next week 08/21/16 Wound VAC in position and serosanguineous drainage Hemoglobin remains stable I've consult the plastic surgery for grafting but was told that there was no plastic surgery coverage yesterday so the consult will go to the next plastic surgeon cooperative education director which is fine with me Patient will need a partial-thickness skin graft on the fasciotomy site of the right thigh, based on plastic surgeons opinion and expert consultation 08/23/16 Patient to go tomorrow for the wound VAC removal and replacement and removal of the remnants of the acellular matrix with washout Spoken to Dr. Guerra of the plastic surgeon and he will accompany me in the OR to evaluate the wound for grafting He is kind assistance is greatly appreciated 08/25/16 Patient underwent successful placement of a new wound VAC yesterday and removal of the remnants of the acellular matrix The bed is nicely granulated and Dr. Guerra will proceed with placement of a skin graft in the next few days Medial aspect of the thigh fasciotomies nicely healed and stitches have been removed 08/27/[address] in [address] clean and dry Dr. Guerra can proceed with grafting any time and judging from his note possibly this or Tuesday Objective: Vital Signs Date Time Temp Pulse Resp B/P Pulse Ox O2 Delivery O2 Flow Rate FiO2 08/27/16 12:00 99.1 91 16 119/85 98 08/27/16 08:00 98.5 83 16 112/76 97 08/27/16 00:00 98.6 91 20 118/74 100 08/26/16 20:00 98.4 82 16 105/74 98 Labs: Laboratory Tests Test 08/27/16 13:00 Blood Type O POSITIVE Antibody Screen NEGATIVE Crossmatch Leukocyte-Reduced Red Blood Cells Blood Bank Comment Result Diagram: 08/27/16 0330 08/27/16 0330 (1) Drug overdose (2) Hypocalcemia (3) SIRS (systemic inflammatory response syndrome) (4) Renal failure (5) Hyperkalemia (6) Lactic acidosis (7) Altered mental status (8) Severe sepsis (9) Elevated troponin (10) Severe metabolic acidosis (11) Acute kidney failure (12) Leukocytosis (13) Hip hematoma, right (14) Small right middle lobe consolidation (15) Rhabdomyolysis (16) Compartment syndrome of right lower extremity Problem Qualifiers (1) Drug overdose: Qualified Code: T50.904A - Drug overdose, undetermined intent, initial encounter (2) Acute kidney failure: Qualified Code: N17.9 - Acute renal failure, unspecified acute renal failure type (3) Leukocytosis: Qualified Code: D72.829 - Leukocytosis, unspecified type Saw Turner MD Aug 27, 2016 16:31
[2016-08-28] VITALS: BP 135/90; PULSE 77; RESP 16; TEMP 97.8
[2016-08-28 08:00] VITALS: BP 121/79; PULSE 68; RESP 16; TEMP 98.6; O2SAT 97
--- NOTE | 2016-08-28 08:01 | PD.PLAS.PN ---
Subjective Remarks Dressing removed to examine the wound Still has a large amount of drainage on the gauze and lots of white spots on the tissue - possibly the indigo Will plan to do a surgical debridement in the OR - on Tuesday Patient to use soap and water to scrub in the shower for 5-10 minutes use Betadine SOLUTION for the dressing (presently Betadine scrub is being used) Vital Signs Date Time Temp Pulse Resp B/P Pulse Ox O2 Delivery O2 Flow Rate FiO2 08/28/16 00:00 97.8 77 16 135/90 08/27/16 20:00 98.7 87 18 123/87 97 08/27/16 17:12 98.4 77 14 131/91 100 08/27/16 16:52 99.3 77 14 136/99 99 08/27/16 16:00 98.5 86 16 129/85 97 08/27/16 12:00 99.1 91 16 119/85 98 08/27/16 08:00 98.5 83 16 112/76 97 I/O 08/27/16 08/27/16 08/27/16 08/28/16 08/28/16 08/28/16 06:59 14:59 22:59 06:59 14:59 22:59 Intake Total 420 ml 360 ml 379 ml 600 ml Output Total 650 ml 350 ml Balance -230 ml 360 ml 379 ml 250 ml Intake Oral 420 ml 360 ml 600 ml IV Total 0 ml 82 ml 0 ml Packed Cells 297 ml Output Urine Total 650 ml 350 ml # Voids 2 2 # Bowel Movements 0 1 1 Laboratory Tests Test 08/27/16 13:00 Blood Type O POSITIVE Antibody Screen NEGATIVE Crossmatch Leukocyte-Reduced Red Blood Cells Blood Bank Comment Date/Time Procedure Status Source Growth 08/24/16 11:09 Gram Stain - Final Complete Wound Other 08/24/16 11:09 Wound Culture - Final Complete Indigo Albicans 08/24/16 11:09 Fungal Smear - Final Resulted Wound Other NO FUNGAL ELEMENTS SEEN. 08/24/16 11:09 Fungal Culture Resulted Wound Other Pending 08/24/16 11:09 Acid Fast Stain - Final Resulted Wound Other NO ACID FAST BACILLI SEEN 08/24/16 11:09 Mycobacterial Culture Resulted Wound Other Pending Result Diagram: 08/27/16 0330 08/27/16 0330 Alejandro Guerra MD Aug 28, 2016 08:01
[2016-08-28] MEDS: LACTULOSE SYRUP 20 GM/30 ML CUP PO SCH ×2 (08:09→21:22)
[2016-08-28] MEDS: FAMOTIDINE 20 MG TAB PO SCH ×2 (08:09→21:23)
[2016-08-28] MEDS: RIFAXIMIN 550 MG TAB PO SCH ×2 (08:09→21:22)
[2016-08-28] MEDS: FOLIC ACID 1 MG TAB PO SCH (08:09)
[2016-08-28] MEDS: THIAMINE HCL 100 MG TAB PO SCH (08:09)
[2016-08-28] MEDS: MULTIVITAMIN TAB PO SCH (08:09)
[2016-08-28] MEDS: cloNIDine HCL 0.1 MG TAB PO SCH ×2 (08:09→21:00)
[2016-08-28] MEDS: ASPIRIN EC 325 MG TABEC PO SCH (08:10)
[2016-08-28 12:00] VITALS: BP 104/71; PULSE 70; RESP 16; TEMP 97.8; O2SAT 99
[2016-08-28] MEDS: FERROUS SULFATE 325 MG (65 MG ELEMENTAL IRON) TAB PO SCH ×2 (12:56→18:08)
[2016-08-28 16:00] VITALS: BP 120/75; PULSE 70; RESP 16; TEMP 98; O2SAT 99
[2016-08-28 16:49] LABS: HEMATOCRIT 27.3 % (35.0-46.0); MEAN CELL VOLUME 87.9 FL (80.0-100.0); MEAN CORPUSCULAR HEMOGLOBIN 30.7 PG (27.0-34.0); MEAN CORPUSCULAR HGB CONC 34.9 % (32.0-36.0); PLATELET COUNT 175 TH/MM3 (150-450); RED CELL DISTRIBUTION WIDTH 15.3 % (11.6-17.2); REVIEW FLAG FINAL; WHITE BLOOD COUNT 3.7 TH/MM3 (4.0-11.0)
[2016-08-28 17:24] LABS: BICARBONATE 25.2 MEQ/L (21.0-32.0); POTASSIUM 3.8 MEQ/L (3.5-5.1)
--- NOTE | 2016-08-28 19:50 | HHI.PR ---
Subjective Remarks late entry - patient seen earlier at 3 pm denies cp/sob feels better denies fevers chills no diarrhea stable vital signs Objective Vitals Vital Signs Date Time Temp Pulse Resp B/P Pulse Ox O2 Delivery O2 Flow Rate FiO2 08/28/16 16:00 98.0 70 16 120/75 99 08/28/16 12:00 97.8 70 16 104/71 99 08/28/16 08:00 98.6 68 16 121/79 97 08/28/16 00:00 97.8 77 16 135/90 08/27/16 20:00 98.7 87 18 123/87 97 I/O 08/27/16 08/27/16 08/27/16 08/28/16 08/28/16 08/28/16 06:59 14:59 22:59 06:59 14:59 22:59 Intake Total 420 ml 360 ml 379 ml 600 ml 342 ml Output Total 650 ml 350 ml 200 ml Balance -230 ml 360 ml 379 ml 250 ml 142 ml Intake Oral 420 ml 360 ml 600 ml 342 ml IV Total 0 ml 82 ml 0 ml 0 ml Packed Cells 297 ml Output Urine Total 650 ml 350 ml 200 ml # Voids 2 2 # Bowel Movements 0 1 1 0 Result Diagram: 08/28/16 1638 08/28/16 1638 Imaging Last Impressions Liver Biopsy CT 08/13/16 0000 Signed Impressions: Service Date/Time: Saturday, August 13, 2016 12:42 - CONCLUSION: Uncomplicated CT guided biopsy. Raymundo Agarwal MD Chest X-Ray 08/09/16 0000 Signed Impressions: Service Date/Time: Tuesday, August 09, 2016 19:30 - CONCLUSION: 1. Interval placement of double-lumen central venous line. 2. Hazy opacity at the lung bases with mild blunting of the left costophrenic angle which could indicate a small effusion. Nael Zuñiga MD Catheter Placement X-Ray 07/30/16 0000 Signed Impressions: Service Date/Time: Saturday, July 30, 2016 14:14 - CONCLUSION: Uncomplicated line placement as above. Judson Cee MD Brain MRI 07/29/16 0000 Signed Impressions: Service Date/Time: July 13:34 - CONCLUSION: 1. Abnormal examination of the brain demonstrating areas of T2 signal and abnormal diffusion signal involving the globus pallidus bilaterally and the mesial temporal lobes bilaterally. Primary considerations would include carbon monoxide poisoning versus other partial anoxic brain injury. Please see above discussion. Aamir Narayanan MD Abdomen Ultrasound 07/26/16 Signed Impressions: Service Date/Time: Tuesday, July 26, 2016 10:21 - CONCLUSION: 1. Small amount of free fluid adjacent to the lower poles of both kidneys. 2. Obscuration of the head of the pancreas, distal IVC and aorta due to overlying bowel gas. 3. Otherwise negative. Judson Cee MD Lower Extremity CT 07/25/16 0000 Signed Impressions: Service Date/Time: Monday, July 25, 2016 18:54 - CONCLUSION: Extensive nonspecific myositis of the right thigh, also involves gluteus medius and minimus proximally and at least medial gastrocnemius below the knee. Infectious/inflammatory and ischemic etiologies would be in the differential. No gas bubbles are seen to substantiate necrotizing fasciitis. No organized/drainable abscess. Glenroy Sheffield MD Hip and Pelvis X-Ray 07/25/16 0000 Signed Impressions: Service Date/Time: Monday, July 25, 2016 16:52 - CONCLUSION: Intact pelvis and right hip. Nonspecific surrounding soft tissue swelling Glenroy Sheffield MD Head CT 07/25/16 0000 Signed Impressions: Service Date/Time: Monday, July 25, 2016 14:38 - CONCLUSION: Negative noncontrast head CT. Glenroy Sheffield MD Chest CT 07/25/16 0000 Signed Impressions: Service Date/Time: Monday, July 25, 2016 16:37 - CONCLUSION: Focal dense consolidation right middle lobe, nonspecific but most likely infectious or inflammatory. Also a 3 mm right basilar pulmonary nodule Followup noncontrast chest CT in a few months recommended to confirm resolution/stability. Glenroy Sheffield MD Abdomen/Pelvis CT 07/25/16 0000 Signed Impressions: Service Date/Time: Monday, July 25, 2016 16:37 - CONCLUSION: 1. Fatty liver and 21 mm right ovarian cyst. Otherwise, no acute abnormality seen within the abdomen or pelvis. 2. Swollen, heterogeneous right hip musculature, primarily gluteus medius and minimus, rectus femoris and vastus lateralis and the adductor muscles. This is nonspecific but suggests a subacute hematoma of these structures. Nothing organized/measurable. 3. Chronic L5 pars defects with grade 2 L5/S1 spondylolisthesis. Glenroy Sheffield MD Objective Remarks GENERAL: 30-year-old female. NAD, not in respiratory distress. CARDIOVASCULAR: S1 and S2 present, regular rate and rhythm, no murmur rubs or gallops. RESPIRATORY: clear to auscultation w no wheezing this morning. GASTROINTESTINAL: Abdomen soft, non-tender, nondistended. Hypoactive bowel sounds. Abrasions. MUSCULOSKELETAL: Right thigh currently with wound VAC lateral aspect. Right hip tender with restricted mobility. Positive peripheral edema right greater than left lower extremity. NEUROLOGICAL: Awake and alert to person, place and year. Motor grossly within normal limits. SKIN: Pale skin. Right thigh wound covered by wound VAC Procedures 08/24/2016 Washout of the right thigh removal of acellular matrix and placement of the wound VAC. 08/16/2016 Washout of the fasciotomy site with reattachment of acellular matrix and wound Vac. 08/06/2016 Washout of the fasciotomy site and placement of acellular matrix coverage with wound VAC placement. 07/26/2016 Pulse irrigation of the medial and lateral fasciotomy, closure of the medial wound, partial closure of the lateral wound and large wound Vac placement. 07/25/2016 Medial and lateral fasciotomy and compartment release of the thigh with right gluteal area. Medications and IVs Current Medications Medications (Trade) Dose Ordered Sig/Sara Route Start Time Stop Time Status Last Admin (Ecotrin Ec) 325 mg DAILY PO 07/26/16 09:00 08/28/16 08:10 (Morphine Inj) 4 mg Q2H PRN IV 07/25/16 23:45 08/23/16 14:30 (Theragran) 1 tab DAILY PO 07/26/16 09:00 08/28/16 08:09 (Folate) 1 mg DAILY PO 07/26/16 09:00 08/28/16 08:09 (Zofran Inj) 4 mg Q6H PRN IV 07/26/16 08:00 07/29/16 04:18 (D50w (Vial) Inj) 25 ml UNSCH PRN IV PUSH 07/26/16 08:15 (Glucagon Inj) 1 mg UNSCH PRN OTHER 07/26/16 08:15 (Xifaxan) 550 mg BID PO 07/26/16 10:00 08/28/16 08:09 (Apresoline Inj) 10 mg Q1HR PRN IV PUSH 07/28/16 09:30 08/01/16 09:30 (Nitroglycerin 2% Oint) 1 inch Q6H PRN TOPICAL 07/28/16 09:30 (Pepcid) 10 mg BID PO 07/29/16 09:00 08/28/16 08:09 (Pill Splitter) 1 ea UNSCH PRN OTHER 07/29/16 09:00 (Roxicodone) 5 mg Q6H PRN PO 07/29/16 09:00 08/28/16 18:08 (Lactulose Liq) 30 ml BID PO 07/30/16 21:00 08/28/16 08:09 (NS Flush) UNSCH PRN IVF 07/30/16 16:15 (Heparin Inj) UNSCH PRN IVF 07/30/16 16:15 08/11/16 11:35 (Catapres) 0.1 mg Q12HR PO 08/02/16 11:00 08/28/16 08:09 (Norvasc) 10 mg DAILY PO 08/03/16 09:00 08/28/16 08:09 (Vitamin B1) 100 mg DAILY PO 08/02/16 11:00 08/28/16 08:09 (Tessalon) 100 mg TID PRN PO 08/13/16 19:30 08/13/16 20:26 (Lopressor) 12.5 mg Q8HR PRN PO 08/15/16 15:00 08/15/16 15:50 (Ferrous Sulfate) 325 mg BID@,17 PO 08/18/16 17:00 08/28/16 18:08 Urinary Catheter: No Vascular Central Line Catheter: No A/P Problem List: (1) Compartment syndrome of right lower extremity ICD Code: T79.A21A Status: Resolved (2) Rhabdomyolysis ICD Code: M62.82 Status: Resolved (3) Drug overdose ICD Code: T50.901A Status: Resolved (4) Acute kidney failure ICD Code: N17.9 Status: Resolved (5) Small right middle lobe consolidation Status: Resolved (6) Hip hematoma, right ICD Code: S70.01XA Status: Resolved Assessment and Plan Ms. Sahu is a 30 year old female who was admitted to the hospital on 2015 to the ICU due to drug overdose, right sided numbness, hyperkalemia, CARLITO, hypotension, liver enzyme elevation, troponin elevation. Cardiology was contacted on the day of admission, STEMI was not suspected by cardiology. Patient admitted to using cocaine night prior to this admission. She also uses heroine. Patient right thigh was noted to be swollen with severe tenderness. Subsequently, patient underwent fasciotomy for compartment syndrome. Wound vac was placed. Patient underwent several surgical intervention by Dr. Turner with regards to her right thigh. Patient also required hemodialysis with regards to her CARLITO. Due to improvement of her renal function, hemodialysis has been discontinued. - Right medial/lateral thigh compartment syndrome - Status post right fasciotomy and wound VAC placement by Dr. Turner - Plastic surgery on board for possible skin graft. - Continue oxycodone, morphine when necessary for pain - s/p Washout of the right thigh removal of acellular matrix and placement of the wound VAC on 08/24/2016. - sp placement of new wound vac by surgery ---> Possible Split thickness skin graft 4-5 days. - 08/28 evaluated by plastic surgery today. Plastic surgery noted several white spots likely due to zeny. Patient for possible debridement on Tuesday. - Severe sepsis - Escherichia coli urinary tract infection - Currently resolved. Infectious disease followed this patient. Currently not on any abx for UTI. - Patient received Vanc, zosyn and later Daptomycin and Levaquin. - Acute kidney injury - patient will return output, creatinine continues to trend down, today 1.2. - Acute rhabdomyolysis. CPK [id number] on 07/25/2016 ==> 118 on 08/07/2016. - Continue normal saline to 75 cc per hour. Nephrology following. - Vas-Cath removed. Patient is not on dialysis anymore. - Macrocytic anemia - Thrombocytopenia - Symptomatic anemia - Transfused total 4 units PRBCs, 2 pack platelets, 2 FFP 2 cryo-since admission - currently Hgb stable - 8.7 on 08/20/2016. - Sp transfusion of 1 unit PRBC on 08/27 hb 7.8 ----> 9.5. - Delirium - Polysubstance abuse including cocaine/heroine - Use PRN Ativan for anxiety and oxycodone/morphine as needed for pain. - CT of the head 07/25 revealed no acute intracranial findings. Continue aspirin, thiamine and multivitamins. - MRI brain 07/29 revealed T2 signal abnormality globus pallidus and mesial temporal lobe bilaterally. - EEG 07/30 revealed slowing system with moderate diffuse encephalopathy. No seizure activity. - Psychiatry lifted Osborn act 07/29/2016 - neurology evaluated the patient and feels that MRI results are from drug overdose. - Ophthalmology exam negative for Bre-Sylvia rings. - Mild Respiratory insufficiency secondary to pneumonia/metabolic acidosis - Small consolidation right middle lobe - Right basilar pulmonary nodule 3 mm - follow-up CT chest 3 months recommended - Tobacco abuse. - now on room air, has cough but nonproductive, continue incentive spirometry , duo nebs. - CT chest 07/25/2016 revealed right middle lobe infiltrate along with 3 mm right basilar pulmonary nodule. - Chest x-ray 07/26/2016 reveals no significant cardio pulmonary findings - Sinus tachycardia - NSTEMI - likely due to cocaine abuse - Hypertension - Continue Norvasc 10mg. Clonidine PRN. - Transaminitis - resolved. - Hyperammonemia - likely due to rhabdomyolysis, hypotension. - CT of the abdomen and pelvis shows fatty liver/21 mm right ovarian cyst - Negative hepatitis panel - Xifaxan 550 twice a day/lactulose 30mg 3 times a day for elevated ammonia. - S/P liver biopsy 08/13/16 - showed minimal steatosis. Full code. SCDs. Discharge Planning Continue to monitor in the medical/surgical floor. Problem Qualifiers (1) Drug overdose: Qualified Code: T50.904A - Drug overdose, undetermined intent, initial encounter (2) Acute kidney failure: Qualified Code: N17.9 - Acute renal failure, unspecified acute renal failure type Daniel Goncalves MD Aug 28, 2016 19:49
[2016-08-28 20:00] VITALS: BP 102/65; PULSE 77; RESP 18; TEMP 98.4; O2SAT 99
[2016-08-29] VITALS: BP 124/81; PULSE 66; RESP 19; TEMP 98.6; O2SAT 96
[2016-08-29 08:00] VITALS: BP 114/83; PULSE 75; RESP 17; TEMP 98.3; O2SAT 98
[2016-08-29] MEDS: FOLIC ACID 1 MG TAB PO SCH (09:06)
[2016-08-29] MEDS: THIAMINE HCL 100 MG TAB PO SCH (09:06)
[2016-08-29] MEDS: RIFAXIMIN 550 MG TAB PO SCH ×2 (09:06→21:22)
[2016-08-29] MEDS: FAMOTIDINE 20 MG TAB PO SCH ×2 (09:07→21:22)
[2016-08-29] MEDS: MULTIVITAMIN TAB PO SCH (09:07)
[2016-08-29] MEDS: ASPIRIN EC 325 MG TABEC PO SCH (09:07)
[2016-08-29] MEDS: LACTULOSE SYRUP 20 GM/30 ML CUP PO SCH ×2 (09:07→21:23)
[2016-08-29] MEDS: cloNIDine HCL 0.1 MG TAB PO SCH ×2 (11:33→21:22)
[2016-08-29 12:00] VITALS: BP 143/106; PULSE 88; RESP 18; TEMP 98.7; O2SAT 98
[2016-08-29] MEDS: FERROUS SULFATE 325 MG (65 MG ELEMENTAL IRON) TAB PO SCH ×2 (12:00→17:27)
[2016-08-29 16:00] VITALS: BP 103/69; PULSE 62; RESP 17; TEMP 97.6; O2SAT 99
[2016-08-29 20:00] VITALS: BP 108/71; PULSE 68; RESP 19; TEMP 98.3; O2SAT 98
--- NOTE | 2016-08-29 21:11 | HHI.PR ---
Subjective Remarks defreed entry - patient seen at 10:35 am denies cp sob c/o pain in right thigh no fevers or chills denies diarrhea Objective Vitals Vital Signs Date Time Temp Pulse Resp B/P Pulse Ox O2 Delivery O2 Flow Rate FiO2 08/29/16 16:00 97.6 62 17 103/69 99 08/29/16 12:00 98.7 88 18 143/106 98 08/29/16 08:00 98.3 75 17 114/83 98 08/29/16 00:00 98.6 66 19 124/81 96 I/O 08/28/16 08/28/16 08/28/16 08/29/16 08/29/16 08/29/16 07:00 15:00 23:00 07:00 15:00 23:00 Intake Total 240 ml 342 ml 240 ml 240 ml 0 ml Output Total 350 ml 200 ml 400 ml 300 ml 300 ml Balance -110 ml 142 ml -160 ml -60 ml -300 ml 0 ml Intake Oral 240 ml 342 ml 240 ml 240 ml IV Total 0 ml 0 ml 0 ml 0 ml Output Urine Total 350 ml 200 ml 400 ml 300 ml 300 ml # Bowel Movements 0 0 0 0 0 # Sanitary Pads 1 Pads Result Diagram: 08/28/16 1638 08/28/16 1638 Objective Remarks GENERAL: 30-year-old female. NAD, not in respiratory distress. CARDIOVASCULAR: S1 and S2 present, regular rate and rhythm, no murmur rubs or gallops. RESPIRATORY: clear to auscultation w no wheezing this morning. GASTROINTESTINAL: Abdomen soft, non-tender, nondistended. Hypoactive bowel sounds. Abrasions. MUSCULOSKELETAL: Right thigh currently with wound VAC lateral aspect. Right hip tender with restricted mobility. Positive peripheral edema right greater than left lower extremity. NEUROLOGICAL: Awake and alert to person, place and year. Motor grossly within normal limits. SKIN: Pale skin. Right thigh wound covered by wound VAC Procedures 08/24/2016 Washout of the right thigh removal of acellular matrix and placement of the wound VAC. 08/16/2016 Washout of the fasciotomy site with reattachment of acellular matrix and wound Vac. 08/06/2016 Washout of the fasciotomy site and placement of acellular matrix coverage with wound VAC placement. 07/26/2016 Pulse irrigation of the medial and lateral fasciotomy, closure of the medial wound, partial closure of the lateral wound and large wound Vac placement. 07/25/2016 Medial and lateral fasciotomy and compartment release of the thigh with right gluteal area. Medications and IVs Current Medications Medications (Trade) Dose Ordered Sig/Sara Route Start Time Stop Time Status Last Admin (Ecotrin Ec) 325 mg DAILY PO 07/26/16 09:00 08/29/16 09:07 (Morphine Inj) 4 mg Q2H PRN IV 07/25/16 23:45 08/23/16 14:30 (Theragran) 1 tab DAILY PO 07/26/16 09:00 08/29/16 09:07 (Folate) 1 mg DAILY PO 07/26/16 09:00 08/29/16 09:06 (Zofran Inj) 4 mg Q6H PRN IV 07/26/16 08:00 07/29/16 04:18 (D50w (Vial) Inj) 25 ml UNSCH PRN IV PUSH 07/26/16 08:15 (Glucagon Inj) 1 mg UNSCH PRN OTHER 07/26/16 08:15 (Xifaxan) 550 mg BID PO 07/26/16 10:00 08/29/16 21:22 (Apresoline Inj) 10 mg Q1HR PRN IV PUSH 07/28/16 09:30 08/01/16 09:30 (Nitroglycerin 2% Oint) 1 inch Q6H PRN TOPICAL 07/28/16 09:30 (Pepcid) 10 mg BID PO 07/29/16 09:00 08/29/16 21:22 (Pill Splitter) 1 ea UNSCH PRN OTHER 07/29/16 09:00 (Roxicodone) 5 mg Q6H PRN PO 07/29/16 09:00 08/29/16 17:27 (Lactulose Liq) 30 ml BID PO 07/30/16 21:00 08/29/16 21:23 (NS Flush) UNSCH PRN IVF 07/30/16 16:15 (Heparin Inj) UNSCH PRN IVF 07/30/16 16:15 08/11/16 11:35 (Catapres) 0.1 mg Q12HR PO 08/02/16 11:00 08/29/16 21:22 (Norvasc) 10 mg DAILY PO 08/03/16 09:00 08/29/16 11:33 (Vitamin B1) 100 mg DAILY PO 08/02/16 11:00 08/29/16 09:06 (Tessalon) 100 mg TID PRN PO 08/13/16 19:30 08/13/16 20:26 (Lopressor) 12.5 mg Q8HR PRN PO 08/15/16 15:00 08/15/16 15:50 (Ferrous Sulfate) 325 mg BID@ PO 08/18/16 17:00 08/29/16 17:27 A/P Problem List: (1) Compartment syndrome of right lower extremity ICD Code: T79.A21A Status: Resolved (2) Rhabdomyolysis ICD Code: M62.82 Status: Resolved (3) Drug overdose ICD Code: T50.901A Status: Resolved (4) Acute kidney failure ICD Code: N17.9 Status: Resolved (5) Small right middle lobe consolidation Status: Resolved (6) Hip hematoma, right ICD Code: S70.01XA Status: Resolved Assessment and Plan Ms. Sahu is a 30 year old female who was admitted to the hospital on 2015 to the ICU due to drug overdose, right sided numbness, hyperkalemia, CARLITO, hypotension, liver enzyme elevation, troponin elevation. Cardiology was contacted on the day of admission, STEMI was not suspected by cardiology. Patient admitted to using cocaine night prior to this admission. She also uses heroine. Patient right thigh was noted to be swollen with severe tenderness. Subsequently, patient underwent fasciotomy for compartment syndrome. Wound vac was placed. Patient underwent several surgical intervention by Dr. Turner with regards to her right thigh. Patient also required hemodialysis with regards to her CARLITO. Due to improvement of her renal function, hemodialysis has been discontinued. - Right medial/lateral thigh compartment syndrome - Status post right fasciotomy and wound VAC placement by Dr. Turner - Plastic surgery on board for possible skin graft. - Continue oxycodone, morphine when necessary for pain - s/p Washout of the right thigh removal of acellular matrix and placement of the wound VAC on 08/24/2016. - sp placement of new wound vac by surgery ---> Possible Split thickness skin graft 4-5 days. - 08/28 evaluated by plastic surgery today. Plastic surgery noted several white spots likely due to zeny. Patient for possible debridement on Tuesday. - For or in am as planned by plastic surgery. - Severe sepsis - Escherichia coli urinary tract infection - Currently resolved. Infectious disease followed this patient. Currently not on any abx for UTI. - Patient received Vanc, zosyn and later Daptomycin and Levaquin. - Acute kidney injury - patient will return output, creatinine continues to trend down, today 1.2. - Acute rhabdomyolysis. CPK [id number] on 07/25/2016 ==> 118 on 08/07/2016. - Continue normal saline to 75 cc per hour. Nephrology following. - Vas-Cath removed. Patient is not on dialysis anymore. - Macrocytic anemia - Thrombocytopenia - Symptomatic anemia - Transfused total 4 units PRBCs, 2 pack platelets, 2 FFP 2 cryo-since admission - currently Hgb stable - 8.7 on 08/20/2016. - Sp transfusion of 1 unit PRBC on 08/27 hb 7.8 ----> 9.5. - Delirium - Polysubstance abuse including cocaine/heroine - Use PRN Ativan for anxiety and oxycodone/morphine as needed for pain. - CT of the head 07/25 revealed no acute intracranial findings. Continue aspirin, thiamine and multivitamins. - MRI brain 07/29 revealed T2 signal abnormality globus pallidus and mesial temporal lobe bilaterally. - EEG 07/30 revealed slowing system with moderate diffuse encephalopathy. No seizure activity. - Psychiatry lifted Osborn act 07/29/2016 - neurology evaluated the patient and feels that MRI results are from drug overdose. - Ophthalmology exam negative for Bre-Sylvia rings. - Mild Respiratory insufficiency secondary to pneumonia/metabolic acidosis - Small consolidation right middle lobe - Right basilar pulmonary nodule 3 mm - follow-up CT chest 3 months recommended - Tobacco abuse. - now on room air,cough has resolved, continue incentive spirometry, duo nebs. - CT chest 07/25/2016 revealed right middle lobe infiltrate along with 3 mm right basilar pulmonary nodule. - Chest x-ray 07/26/2016 reveals no significant cardio pulmonary findings - Sinus tachycardia - NSTEMI - likely due to cocaine abuse - Hypertension - Continue Norvasc 10mg. Clonidine PRN. - Transaminitis - resolved. - Hyperammonemia - likely due to rhabdomyolysis, hypotension. - CT of the abdomen and pelvis shows fatty liver/21 mm right ovarian cyst - Negative hepatitis panel - Xifaxan 550 twice a day/lactulose 30mg 3 times a day for elevated ammonia. - S/P liver biopsy 08/13/16 - showed minimal steatosis. Full code. SCDs. Discharge Planning Continue to monitor in the medical/surgical floor. Problem Qualifiers (1) Drug overdose: Qualified Code: T50.904A - Drug overdose, undetermined intent, initial encounter (2) Acute kidney failure: Qualified Code: N17.9 - Acute renal failure, unspecified acute renal failure type Daniel Goncalves MD Aug 29, 2016 21:11
[2016-08-30] VITALS: BP 101/74; PULSE 93; RESP 19; TEMP 97.5; O2SAT 98
[2016-08-30 05:46] LABS: HEMATOCRIT 26.3 % (35.0-46.0); MEAN CELL VOLUME 87.6 FL (80.0-100.0); MEAN CORPUSCULAR HEMOGLOBIN 30.6 PG (27.0-34.0); MEAN CORPUSCULAR HGB CONC 34.9 % (32.0-36.0); PLATELET COUNT 167 TH/MM3 (150-450); RED CELL DISTRIBUTION WIDTH 14.8 % (11.6-17.2); REVIEW FLAG FINAL
[2016-08-30 08:00] VITALS: BP 121/70; PULSE 77; RESP 17; TEMP 98.5; O2SAT 98
[2016-08-30] MEDS: cloNIDine HCL 0.1 MG TAB PO SCH ×2 (08:20→21:01)
[2016-08-30] MEDS ORDERED: LIDOCAINE 1%/EPINEPHrine 1:100,000 SOLN 20 ML VIAL ONE (11:53)
[2016-08-30 12:00] VITALS: BP 100/63; PULSE 70; RESP 17; TEMP 98; O2SAT 99
[2016-08-30] MEDS ORDERED: PROPOFOL 200 MG/20 ML AMP IV ONE (12:00)
[2016-08-30] MEDS ORDERED: ONDANSETRON HCL 4 MG/2 ML VIAL IV PUSH ONE (12:00)
[2016-08-30] MEDS ORDERED: ACETAMINOPHEN 1000 MG/100 ML VIAL IV ONE (12:01)
[2016-08-30] MEDS ORDERED: DEXAMETHASONE SOD PHOS 4 MG/ML VIAL ONE (12:01)
--- NOTE | 2016-08-30 12:44 | HHI.PR ---
Subjective Remarks c/o some pain in right thigh denies cp/sob feels less tired satble vital signs afebrile Creatinine trending down Objective Vitals Vital Signs Date Time Temp Pulse Resp B/P Pulse Ox O2 Delivery O2 Flow Rate FiO2 08/30/16 12:00 98.0 70 17 100/63 99 08/30/16 08:00 98.5 77 17 121/70 98 08/30/16 00:00 97.5 93 19 101/74 98 08/29/16 20:00 98.3 68 19 108/71 98 08/29/16 16:00 97.6 62 17 103/69 99 I/O 08/29/16 08/29/16 08/29/16 08/30/16 08/30/16 08/30/16 07:00 15:00 23:00 07:00 15:00 23:00 Intake Total 240 ml 240 ml 0 ml Output Total 300 ml 300 ml Balance -60 ml -300 ml 240 ml 0 ml Intake Oral 240 ml 240 ml 0 ml IV Total 0 ml Output Urine Total 300 ml 300 ml # Voids 1 3 # Bowel Movements 0 0 0 0 Result Diagram: 08/30/16 0503 08/28/16 1638 Imaging Last Impressions Liver Biopsy CT 08/13/16 0000 Signed Impressions: Service Date/Time: Saturday, August 13, 2016 12:42 - CONCLUSION: Uncomplicated CT guided biopsy. Raymundo Agarwal MD Chest X-Ray 08/09/16 0000 Signed Impressions: Service Date/Time: Tuesday, August 09, 2016 19:30 - CONCLUSION: 1. Interval placement of double-lumen central venous line. 2. Hazy opacity at the lung bases with mild blunting of the left costophrenic angle which could indicate a small effusion. Nael Zuñiga MD Catheter Placement X-Ray 07/30/16 0000 Signed Impressions: Service Date/Time: Saturday, July 30, 2016 14:14 - CONCLUSION: Uncomplicated line placement as above. Judson Cee MD Brain MRI 07/29/16 0000 Signed Impressions: Service Date/Time: July 13:34 - CONCLUSION: 1. Abnormal examination of the brain demonstrating areas of T2 signal and abnormal diffusion signal involving the globus pallidus bilaterally and the mesial temporal lobes bilaterally. Primary considerations would include carbon monoxide poisoning versus other partial anoxic brain injury. Please see above discussion. Aamir Narayanan MD Abdomen Ultrasound 07/26/16 Signed Impressions: Service Date/Time: Tuesday, July 26, 2016 10:21 - CONCLUSION: 1. Small amount of free fluid adjacent to the lower poles of both kidneys. 2. Obscuration of the head of the pancreas, distal IVC and aorta due to overlying bowel gas. 3. Otherwise negative. Judson Cee MD Lower Extremity CT 07/25/16 Signed Impressions: Service Date/Time: Monday, July 25, 2016 18:54 - CONCLUSION: Extensive nonspecific myositis of the right thigh, also involves gluteus medius and minimus proximally and at least medial gastrocnemius below the knee. Infectious/inflammatory and ischemic etiologies would be in the differential. No gas bubbles are seen to substantiate necrotizing fasciitis. No organized/drainable abscess. Glenroy Sheffield MD Hip and Pelvis X-Ray 07/25/16 Signed Impressions: Service Date/Time: Monday, July 25, 2016 16:52 - CONCLUSION: Intact pelvis and right hip. Nonspecific surrounding soft tissue swelling Glenroy Sheffield MD Head CT 07/25/16 0000 Signed Impressions: Service Date/Time: Monday, July 25, 2016 14:38 - CONCLUSION: Negative noncontrast head CT. Glenroy Sheffield MD Chest CT 07/25/16 0000 Signed Impressions: Service Date/Time: Monday, July 25, 2016 16:37 - CONCLUSION: Focal dense consolidation right middle lobe, nonspecific but most likely infectious or inflammatory. Also a 3 mm right basilar pulmonary nodule Followup noncontrast chest CT in a few months recommended to confirm resolution/stability. Glenroy Sheffield MD Abdomen/Pelvis CT 07/25/16 0000 Signed Impressions: Service Date/Time: Monday, July 25, 2016 16:37 - CONCLUSION: 1. Fatty liver and 21 mm right ovarian cyst. Otherwise, no acute abnormality seen within the abdomen or pelvis. 2. Swollen, heterogeneous right hip musculature, primarily gluteus medius and minimus, rectus femoris and vastus lateralis and the adductor muscles. This is nonspecific but suggests a subacute hematoma of these structures. Nothing organized/measurable. 3. Chronic L5 pars defects with grade 2 L5/S1 spondylolisthesis. Glenroy Sheffield MD Objective Remarks GENERAL: 30-year-old female. NAD, not in respiratory distress. CARDIOVASCULAR: S1 and S2 present, regular rate and rhythm, no murmur rubs or gallops. RESPIRATORY: clear to auscultation w no wheezing this morning. GASTROINTESTINAL: Abdomen soft, non-tender, nondistended. Hypoactive bowel sounds. Abrasions. MUSCULOSKELETAL: Right thigh currently with dressing C/D/I. Right thigh slightly larger when compared to NEUROLOGICAL: Awake and alert to person, place and year. Motor grossly within normal limits. SKIN:no rash observed. Right thigh wound covered by dressing Procedures 08/24/2016 Washout of the right thigh removal of acellular matrix and placement of the wound VAC. 08/16/2016 Washout of the fasciotomy site with reattachment of acellular matrix and wound Vac. 08/06/2016 Washout of the fasciotomy site and placement of acellular matrix coverage with wound VAC placement. 07/26/2016 Pulse irrigation of the medial and lateral fasciotomy, closure of the medial wound, partial closure of the lateral wound and large wound Vac placement. 07/25/2016 Medial and lateral fasciotomy and compartment release of the thigh with right gluteal area. Medications and IVs Current Medications Medications (Trade) Dose Ordered Sig/Sara Route Start Time Stop Time Status Last Admin (Ecotrin Ec) 325 mg DAILY PO 07/26/16 09:00 08/29/16 09:07 (Morphine Inj) 4 mg Q2H PRN IV 07/25/16 23:45 08/23/16 14:30 (Theragran) 1 tab DAILY PO 07/26/16 09:00 08/29/16 09:07 (Folate) 1 mg DAILY PO 07/26/16 09:00 08/29/16 09:06 (Zofran Inj) 4 mg Q6H PRN IV 07/26/16 08:00 07/29/16 04:18 (D50w (Vial) Inj) 25 ml UNSCH PRN IV PUSH 07/26/16 08:15 (Glucagon Inj) 1 mg UNSCH PRN OTHER 07/26/16 08:15 (Xifaxan) 550 mg BID PO 07/26/16 10:00 08/29/16 21:22 (Apresoline Inj) 10 mg Q1HR PRN IV PUSH 07/28/16 09:30 08/01/16 09:30 (Nitroglycerin 2% Oint) 1 inch Q6H PRN TOPICAL 07/28/16 09:30 (Pepcid) 10 mg BID PO 07/29/16 09:00 08/29/16 21:22 (Pill Splitter) 1 ea UNSCH PRN OTHER 07/29/16 09:00 (Roxicodone) 5 mg Q6H PRN PO 07/29/16 09:00 08/30/16 06:13 (Lactulose Liq) 30 ml BID PO 07/30/16 21:00 08/29/16 21:23 (NS Flush) UNSCH PRN IVF 07/30/16 16:15 (Heparin Inj) UNSCH PRN IVF 07/30/16 16:15 08/11/16 11:35 (Catapres) 0.1 mg Q12HR PO 08/02/16 11:00 08/30/16 08:20 (Norvasc) 10 mg DAILY PO 08/03/16 09:00 08/30/16 08:20 (Vitamin B1) 100 mg DAILY PO 08/02/16 11:00 08/29/16 09:06 (Tessalon) 100 mg TID PRN PO 08/13/16 19:30 08/13/16 20:26 (Lopressor) 12.5 mg Q8HR PRN PO 08/15/16 15:00 08/15/16 15:50 (Ferrous Sulfate) 325 mg BID@, PO 08/18/16 17:00 08/29/16 17:27 A/P Problem List: (1) Compartment syndrome of right lower extremity ICD Code: T79.A21A Status: Resolved (2) Rhabdomyolysis ICD Code: M62.82 Status: Resolved (3) Drug overdose ICD Code: T50.901A Status: Resolved (4) Acute kidney failure ICD Code: N17.9 Status: Resolved (5) Small right middle lobe consolidation Status: Resolved (6) Hip hematoma, right ICD Code: S70.01XA Status: Resolved Assessment and Plan Ms. Sahu is a 30 year old female who was admitted to the hospital on 2015 to the ICU due to drug overdose, right sided numbness, hyperkalemia, CARLITO, hypotension, liver enzyme elevation, troponin elevation. Cardiology was contacted on the day of admission, STEMI was not suspected by cardiology. Patient admitted to using cocaine night prior to this admission. She also uses heroine. Patient right thigh was noted to be swollen with severe tenderness. Subsequently, patient underwent fasciotomy for compartment syndrome. Wound vac was placed. Patient underwent several surgical intervention by Dr. Turner with regards to her right thigh. Patient also required hemodialysis with regards to her CARLITO. Due to improvement of her renal function, hemodialysis has been discontinued. - Right medial/lateral thigh compartment syndrome - Status post right fasciotomy and wound VAC placement by Dr. Turner - Plastic surgery on board for possible skin graft. - Continue oxycodone, morphine when necessary for pain - s/p Washout of the right thigh removal of acellular matrix and placement of the wound VAC on 08/24/2016. - sp placement of new wound vac by surgery ---> Possible Split thickness skin graft 4-5 days. - 08/28 evaluated by plastic surgery today. Plastic surgery noted several white spots likely due to zeny. Patient for possible debridement on Tuesday. - 08/30/16 For right thigh debridement by plastic surgery today. Continue pain control with Roxicodonr and IV morphine. - Severe sepsis - Escherichia coli urinary tract infection - Currently resolved. Infectious disease followed this patient. Currently not on any abx for UTI. - Patient received Vanc, zosyn and later Daptomycin and Levaquin. - Acute kidney injury - patient with good urine output, creatinine continues to trend down, today 1.2. - Acute rhabdomyolysis. CPK [id number] on 07/25/2016 ==> 118 on 08/07/2016. - Continue normal saline to 75 cc per hour. Nephrology following. - Vas-Cath removed. Patient is not on dialysis anymore. - Macrocytic anemia - Thrombocytopenia - Symptomatic anemia - Transfused total 4 units PRBCs, 2 pack platelets, 2 FFP 2 cryo-since admission - currently Hgb stable - 8.7 on 08/20/2016. - Sp transfusion of 1 unit PRBC on 08/27 hb 7.8 ----> 9.5. - Delirium - Polysubstance abuse including cocaine/heroine - Use PRN Ativan for anxiety and oxycodone/morphine as needed for pain. - CT of the head 07/25 revealed no acute intracranial findings. Continue aspirin, thiamine and multivitamins. - MRI brain 07/29 revealed T2 signal abnormality globus pallidus and mesial temporal lobe bilaterally. - EEG 07/30 revealed slowing system with moderate diffuse encephalopathy. No seizure activity. - Psychiatry lifted [place] act 07/29/2016 - neurology evaluated the patient and feels that MRI results are from drug overdose. - Ophthalmology exam negative for Bre-Sylvia rings. - Mild Respiratory insufficiency secondary to pneumonia/metabolic acidosis - Small consolidation right middle lobe - Right basilar pulmonary nodule 3 mm - follow-up CT chest 3 months recommended - Tobacco abuse. - now on room air,cough has resolved, continue incentive spirometry, duo nebs. - CT chest 07/25/2016 revealed right middle lobe infiltrate along with 3 mm right basilar pulmonary nodule. - Chest x-ray 07/26/2016 reveals no significant cardio pulmonary findings - Sinus tachycardia - NSTEMI - likely due to cocaine abuse - Hypertension - Continue Norvasc 10mg. Clonidine PRN. - Transaminitis - resolved. - Hyperammonemia - likely due to rhabdomyolysis, hypotension. - CT of the abdomen and pelvis shows fatty liver/21 mm right ovarian cyst - Negative hepatitis panel - Xifaxan 550 twice a day/lactulose 30mg 3 times a day for elevated ammonia. - S/P liver biopsy 08/13/16 - showed minimal steatosis. Full code. SCDs. Discharge Planning Continue to monitor in the medical/surgical floor. Problem Qualifiers (1) Drug overdose: Qualified Code: T50.904A - Drug overdose, undetermined intent, initial encounter (2) Acute kidney failure: Qualified Code: N17.9 - Acute renal failure, unspecified acute renal failure type Daniel Goncalves MD Aug 30, 2016 12:43
[2016-08-30] MEDS ORDERED: MIDAZOLAM HCL 2 MG/2 ML VIAL ONE (13:06)
[2016-08-30] MEDS: ASPIRIN EC 325 MG TABEC PO SCH (14:49)
[2016-08-30] MEDS: FERROUS SULFATE 325 MG (65 MG ELEMENTAL IRON) TAB PO SCH ×2 (14:49→17:00)
[2016-08-30] MEDS: MULTIVITAMIN TAB PO SCH (14:50)
[2016-08-30] MEDS: FOLIC ACID 1 MG TAB PO SCH (14:50)
[2016-08-30] MEDS: THIAMINE HCL 100 MG TAB PO SCH (14:50)
[2016-08-30] MEDS: LACTULOSE SYRUP 20 GM/30 ML CUP PO SCH ×2 (14:50→21:00)
[2016-08-30] MEDS: RIFAXIMIN 550 MG TAB PO SCH ×2 (14:50→21:01)
[2016-08-30] MEDS: FAMOTIDINE 20 MG TAB PO SCH ×2 (14:50→21:01)
[2016-08-30 16:00] VITALS: BP 101/68; PULSE 81; RESP 17; TEMP 97.5; O2SAT 98
--- NOTE | 2016-08-30 16:42 | MP ---
cc: CHRISTIANO JOYA MD MORADIA, VIJAY DATE OF SURGERY: 08/30/2016 PREOPERATIVE DIAGNOSIS: Large open fasciotomy wound right thigh, 25 x 15 cm. POSTOPERATIVE DIAGNOSIS Large open fasciotomy wound right thigh, 25 x 15 cm. OPERATION Sharp excisional debridement right thigh, 25 x [address] Guerra ANESTHESIA General INDICATIONS This is a 30-year-old white female brought in approximately a month ago to the ER for drug overdose and a right thigh compartment syndrome that was opened for fasciotomy by Dr. Joya, has been debrided a few times including wound Vac. Currently she is growing Indigo out of the wound and the wound is having daily dressing change without the wound Vac. The wound is over-granulated and showing fair amount of colonized Indigo spots. She is here for debridement today. SURGEON Dr. Guerra. ANESTHESIA General DESCRIPTION OF PROCEDURE: The patient was brought to the operating room, was given supine position. Anesthesia was started. The patient is already on scheduled IV antibiotics. Prep and drape was done, time-out was called and completed. The wound was debrided extensively with a #10 blade taking down most of the overgrown granulation tissue curetting off the surface removing most of the tissue, also a culture sample had been taken just prior to the prep. Once the debridement was completed with knife further debridement was carried out using Betadine scrub brush using the brush side to smooth out the surface as much as possible. The wound was copiously rinsed with saline and dressed with saline wet-to-dry dressing. The patient remained stable. Intraoperative blood loss approximately 50 cc. No complications. signed, not fully reviewed MD ISABEL Coleman/IRVING /12:49 PM /4:17 PM OTTONIEL
[2016-08-30 20:00] VITALS: BP 104/65; PULSE 96; RESP 18; TEMP 97.6; O2SAT 99
[2016-08-31] VITALS: BP 110/68; PULSE 97; RESP 20; TEMP 97.8; O2SAT 97
[2016-08-31 05:48] LABS: AUTOMATED NEUTROPHIL # 2.4 TH/MM3 (1.8-7.7); BASOPHIL % 0.5 % (0.0-2.0); EOSINOPHIL % 0.7 % (0.0-4.0); HEMATOCRIT 22.5 % (35.0-46.0); HEMO FLAGS DIFF FINAL; LYMPH % 24.2 % (9.0-44.0); LYMPHOCYTE # 0.9 TH/MM3 (1.0-4.8); MEAN CELL VOLUME 86.8 FL (80.0-100.0); MEAN CORPUSCULAR HEMOGLOBIN 30.8 PG (27.0-34.0); MEAN CORPUSCULAR HGB CONC 35.5 % (32.0-36.0); MONO % 7.6 % (0.0-8.0); PLATELET COUNT 145 TH/MM3 (150-450); RED BLOOD COUNT 2.59 MIL/MM3 (4.00-5.30); RED CELL DISTRIBUTION WIDTH 14.6 % (11.6-17.2); WHITE BLOOD COUNT 3.6 TH/MM3 (4.0-11.0)
[2016-08-31 06:04] LABS: ALKALINE PHOSPHATASE 64 U/L (45-117); ALT (GPT) 14 U/L (10-53); ANION GAP 8 MEQ/L (5-15); AST (GOT) 13 U/L (15-37); BLOOD UREA NITROGEN 6 MG/DL (7-18); CHLORIDE 106 MEQ/L (98-107); GLOMERULAR FILTRATION RATE 49 ML/MIN (>89); MAGNESIUM 1.5 MG/DL (1.5-2.5); POTASSIUM 4.1 MEQ/L (3.5-5.1); SODIUM (NA) 139 MEQ/L (136-145); TOTAL BILIRUBIN ADULT 0.2 MG/DL (0.2-1.0)
[2016-08-31 08:00] VITALS: BP 99/54; PULSE 53; RESP 15; TEMP 97.6; O2SAT 98
[2016-08-31] MEDS: cloNIDine HCL 0.1 MG TAB PO SCH ×2 (09:00→19:41)
[2016-08-31] MEDS: RIFAXIMIN 550 MG TAB PO SCH ×2 (09:23→19:41)
[2016-08-31] MEDS: LACTULOSE SYRUP 20 GM/30 ML CUP PO SCH ×2 (09:23→19:41)
[2016-08-31] MEDS: THIAMINE HCL 100 MG TAB PO SCH (09:24)
[2016-08-31] MEDS: MULTIVITAMIN TAB PO SCH (09:25)
[2016-08-31] MEDS: FOLIC ACID 1 MG TAB PO SCH (09:25)
[2016-08-31] MEDS: ASPIRIN EC 325 MG TABEC PO SCH (09:25)
[2016-08-31] MEDS: FAMOTIDINE 20 MG TAB PO SCH ×2 (09:25→19:41)
[2016-08-31 09:34] VITALS: BP 118/84
[2016-08-31] MEDS ORDERED: SODIUM CHLORID 0.9% 500 ML INJ 500 ML IV ONE (10:00)
--- NOTE | 2016-08-31 10:29 | HHI.PR ---
Subjective Remarks today patient feels very sad and is crying because she realized her boyfriend denies cp/sob denies fatigue has some right thigh pain hemoglobin dropped from 9.2 to 8 hypotensive earlier while sleeping now bp better Objective Vitals Vital Signs Date Time Temp Pulse Resp B/P Pulse Ox O2 Delivery O2 Flow Rate FiO2 08/31/16 09:34 118/84 08/31/16 08:00 97.6 53 15 99/54 98 08/31/16 04:07 17 08/31/16 00:00 97.8 97 20 110/68 97 08/30/16 20:00 97.6 96 18 104/65 99 08/30/16 16:00 97.5 81 17 101/68 98 08/30/16 13:40 98.1 61 18 96/60 100 Room Air 08/30/16 13:30 61 18 96/60 100 Room Air 08/30/16 13:15 65 18 92/60 100 Room Air 08/30/16 13:00 70 18 99/63 100 Room Air 08/30/16 12:51 98.1 73 18 99/63 100 Nasal Cannula 2 08/30/16 12:00 98.0 70 17 100/63 99 I/O 08/30/16 08/30/16 08/30/16 08/31/16 08/31/16 08/31/16 07:00 15:00 23:00 07:00 15:00 23:00 Intake Total 0 ml 400 ml 480 ml 360 ml Output Total 500 ml 700 ml 450 ml Balance 0 ml -100 ml -220 ml -90 ml Intake Oral 0 ml 480 ml 360 ml Other 400 ml Output Urine Total 500 ml 700 ml 450 ml # Voids 3 # Bowel Movements 0 1 0 0 Result Diagram: 08/31/16 0504 08/31/16 0504 Imaging Last Impressions Liver Biopsy CT 08/13/16 0000 Signed Impressions: Service Date/Time: Saturday, August 13, 2016 12:42 - CONCLUSION: Uncomplicated CT guided biopsy. Raymundo Agarwal MD Chest X-Ray 08/09/16 0000 Signed Impressions: Service Date/Time: Tuesday, August 09, 2016 19:30 - CONCLUSION: 1. Interval placement of double-lumen central venous line. 2. Hazy opacity at the lung bases with mild blunting of the left costophrenic angle which could indicate a small effusion. Nael Zuñiga MD Catheter Placement X-Ray 07/30/16 0000 Signed Impressions: Service Date/Time: Saturday, July 30, 2016 14:14 - CONCLUSION: Uncomplicated line placement as above. Judson Cee MD Brain MRI 07/29/16 0000 Signed Impressions: Service Date/Time: July 13:34 - CONCLUSION: 1. Abnormal examination of the brain demonstrating areas of T2 signal and abnormal diffusion signal involving the globus pallidus bilaterally and the mesial temporal lobes bilaterally. Primary considerations would include carbon monoxide poisoning versus other partial anoxic brain injury. Please see above discussion. Aamir Narayanan MD Abdomen Ultrasound 07/26/16 0000 Signed Impressions: Service Date/Time: Tuesday, July 26, 2016 10:21 - CONCLUSION: 1. Small amount of free fluid adjacent to the lower poles of both kidneys. 2. Obscuration of the head of the pancreas, distal IVC and aorta due to overlying bowel gas. 3. Otherwise negative. Judson Cee MD Lower Extremity CT 07/25/16 0000 Signed Impressions: Service Date/Time: Monday, July 25, 2016 18:54 - CONCLUSION: Extensive nonspecific myositis of the right thigh, also involves gluteus medius and minimus proximally and at least medial gastrocnemius below the knee. Infectious/inflammatory and ischemic etiologies would be in the differential. No gas bubbles are seen to substantiate necrotizing fasciitis. No organized/drainable abscess. Glenroy Sheffield MD Hip and Pelvis X-Ray 07/25/16 0000 Signed Impressions: Service Date/Time: Monday, July 25, 2016 16:52 - CONCLUSION: Intact pelvis and right hip. Nonspecific surrounding soft tissue swelling Glenroy Sheffield MD Head CT 07/25/16 0000 Signed Impressions: Service Date/Time: Monday, July 25, 2016 14:38 - CONCLUSION: Negative noncontrast head CT. Glenroy Sheffield MD Chest CT 07/25/16 0000 Signed Impressions: Service Date/Time: Monday, July 25, 2016 16:37 - CONCLUSION: Focal dense consolidation right middle lobe, nonspecific but most likely infectious or inflammatory. Also a 3 mm right basilar pulmonary nodule Followup noncontrast chest CT in a few months recommended to confirm resolution/stability. Glenroy Sheffield MD Abdomen/Pelvis CT 07/25/16 0000 Signed Impressions: Service Date/Time: Monday, July 25, 2016 16:37 - CONCLUSION: 1. Fatty liver and 21 mm right ovarian cyst. Otherwise, no acute abnormality seen within the abdomen or pelvis. 2. Swollen, heterogeneous right hip musculature, primarily gluteus medius and minimus, rectus femoris and vastus lateralis and the adductor muscles. This is nonspecific but suggests a subacute hematoma of these structures. Nothing organized/measurable. 3. Chronic L5 pars defects with grade 2 L5/S1 spondylolisthesis. Glenroy Sheffield MD Objective Remarks GENERAL: 30-year-old female. NAD, not in respiratory distress. CARDIOVASCULAR: S1 and S2 present, regular rate and rhythm, no murmur rubs or gallops. RESPIRATORY: clear to auscultation w no wheezing this morning. GASTROINTESTINAL: Abdomen soft, non-tender, nondistended. Hypoactive bowel sounds. Abrasions. MUSCULOSKELETAL: Right thigh currently with dressing C/D/I. Right thigh slightly larger when compared to NEUROLOGICAL: Awake and alert to person, place and year. Motor grossly within normal limits. SKIN:no rash observed. Right thigh wound covered by dressing Procedures 08/24/2016 Washout of the right thigh removal of acellular matrix and placement of the wound VAC. 08/16/2016 Washout of the fasciotomy site with reattachment of acellular matrix and wound Vac. 08/06/2016 Washout of the fasciotomy site and placement of acellular matrix coverage with wound VAC placement. 07/26/2016 Pulse irrigation of the medial and lateral fasciotomy, closure of the medial wound, partial closure of the lateral wound and large wound Vac placement. 07/25/2016 Medial and lateral fasciotomy and compartment release of the thigh with right gluteal area. Medications and IVs Current Medications Medications (Trade) Dose Ordered Sig/Sara Route Start Time Stop Time Status Last Admin (Ecotrin Ec) 325 mg DAILY PO 07/26/16 09:00 08/31/16 09:25 (Morphine Inj) 4 mg Q2H PRN IV 07/25/16 23:45 08/23/16 14:30 (Theragran) 1 tab DAILY PO 07/26/16 09:00 08/31/16 09:25 (Folate) 1 mg DAILY PO 07/26/16 09:00 08/31/16 09:25 (Zofran Inj) 4 mg Q6H PRN IV 07/26/16 08:00 07/29/16 04:18 (D50w (Vial) Inj) 25 ml UNSCH PRN IV PUSH 07/26/16 08:15 (Glucagon Inj) 1 mg UNSCH PRN OTHER 07/26/16 08:15 (Xifaxan) 550 mg BID PO 07/26/16 10:00 08/31/16 09:23 (Apresoline Inj) 10 mg Q1HR PRN IV PUSH 07/28/16 09:30 08/01/16 09:30 (Nitroglycerin 2% Oint) 1 inch Q6H PRN TOPICAL 07/28/16 09:30 (Pepcid) 10 mg BID PO 07/29/16 09:00 08/31/16 09:25 (Pill Splitter) 1 ea UNSCH PRN OTHER 07/29/16 09:00 (Roxicodone) 5 mg Q6H PRN PO 07/29/16 09:00 08/31/16 06:00 (Lactulose Liq) 30 ml BID PO 07/30/16 21:00 08/31/16 09:23 (NS Flush) UNSCH PRN IVF 07/30/16 16:15 (Heparin Inj) UNSCH PRN IVF 07/30/16 16:15 08/11/16 11:35 (Catapres) 0.1 mg Q12HR PO 08/02/16 11:00 08/30/16 21:01 (Norvasc) 10 mg DAILY PO 08/03/16 09:00 08/30/16 08:20 (Vitamin B1) 100 mg DAILY PO 08/02/16 11:00 08/31/16 09:24 (Tessalon) 100 mg TID PRN PO 08/13/16 19:30 08/13/16 20:26 (Lopressor) 12.5 mg Q8HR PRN PO 08/15/16 15:00 08/15/16 15:50 (Ferrous Sulfate) 325 mg BID@, PO 08/18/16 17:00 08/30/16 14:49 Urinary Catheter: No Vascular Central Line Catheter: No A/P Problem List: (1) Compartment syndrome of right lower extremity ICD Code: T79.A21A Status: Resolved (2) Rhabdomyolysis ICD Code: M62.82 Status: Resolved (3) Drug overdose ICD Code: T50.901A Status: Resolved (4) Acute kidney failure ICD Code: N17.9 Status: Resolved (5) Small right middle lobe consolidation Status: Resolved (6) Hip hematoma, right ICD Code: S70.01XA Status: Resolved (7) Leukopenia ICD Code: D72.819 Status: Acute (8) Anemia ICD Code: D64.9 Status: Acute Assessment and Plan Ms. Sahu is a 30 year old female who was admitted to the hospital on 2015 to the ICU due to drug overdose, right sided numbness, hyperkalemia, CARLITO, hypotension, liver enzyme elevation, troponin elevation. Cardiology was contacted on the day of admission, STEMI was not suspected by cardiology. Patient admitted to using cocaine night prior to this admission. She also uses heroine. Patient right thigh was noted to be swollen with severe tenderness. Subsequently, patient underwent fasciotomy for compartment syndrome. Wound vac was placed. Patient underwent several surgical intervention by Dr. Turner with regards to her right thigh. Patient also required hemodialysis with regards to her CARLITO. Due to improvement of her renal function, hemodialysis has been discontinued. - Right medial/lateral thigh compartment syndrome - Status post right fasciotomy and wound VAC placement by Dr. Turner - Plastic surgery on board for possible skin graft. - Continue oxycodone, morphine when necessary for pain - s/p Washout of the right thigh removal of acellular matrix and placement of the wound VAC on 08/24/2016. - sp placement of new wound vac by surgery ---> Possible Split thickness skin graft 4-5 days. - 08/28 evaluated by plastic surgery today. Plastic surgery noted several white spots likely due to zeny. Patient for possible debridement on Tuesday. - 08/30/16 For right thigh debridement by plastic surgery today. Continue pain control with Roxicodonr and IV morphine. - 08/31/16 status post debridement of the right thigh wound. Continue pain control. - Severe sepsis - Escherichia coli urinary tract infection - Currently resolved. Infectious disease followed this patient. Currently not on any abx for UTI. - Patient received Vanc, zosyn and later Daptomycin and Levaquin. - Acute kidney injury - patient with good urine output, creatinine continues to trend down, today 1.2. - Acute rhabdomyolysis. CPK [id number] on 07/25/2016 ==> 118 on 08/07/2016. - Continue normal saline to 75 cc per hour. Nephrology following. - Vas-Cath removed. Patient is not on dialysis anymore. - Macrocytic anemia - Thrombocytopenia - Symptomatic anemia - Transfused total 4 units PRBCs, 2 pack platelets, 2 FFP 2 cryo-since admission - currently Hgb stable - 8.7 on 08/20/2016. - Sp transfusion of 1 unit PRBC on 08/27 hb 7.8 ----> 9.5. - 08/31/16 patient would likely acute postop anemia, the patient's hemoglobin dropped from 9.2-8, continue to monitor hemoglobin and transfuse if less than 7 or patient symptomatic. - Delirium - Polysubstance abuse including cocaine/heroine - Use PRN Ativan for anxiety and oxycodone/morphine as needed for pain. - CT of the head 07/25 revealed no acute intracranial findings. Continue aspirin, thiamine and multivitamins. - MRI brain 07/29 revealed T2 signal abnormality globus pallidus and mesial temporal lobe bilaterally. - EEG 07/30 revealed slowing system with moderate diffuse encephalopathy. No seizure activity. - Psychiatry lifted [place] act 07/29/2016 - neurology evaluated the patient and feels that MRI results are from drug overdose. - Ophthalmology exam negative for Bre-Sylvia rings. - Mild Respiratory insufficiency secondary to pneumonia/metabolic acidosis - Small consolidation right middle lobe - Right basilar pulmonary nodule 3 mm - follow-up CT chest 3 months recommended - Tobacco abuse. - now on room air,cough has resolved, continue incentive spirometry, duo nebs. - CT chest 07/25/2016 revealed right middle lobe infiltrate along with 3 mm right basilar pulmonary nodule. - Chest x-ray 07/26/2016 reveals no significant cardio pulmonary findings - Sinus tachycardia - NSTEMI - likely due to cocaine abuse - Hypertension - Continue Norvasc 10mg. Clonidine PRN. - Transaminitis - resolved. - Hyperammonemia - likely due to rhabdomyolysis, hypotension. - CT of the abdomen and pelvis shows fatty liver/21 mm right ovarian cyst - Negative hepatitis panel - Xifaxan 550 twice a day/lactulose 30mg 3 times a day for elevated ammonia. - S/P liver biopsy 08/13/16 - showed minimal steatosis. -Pancytopenia - patient's WBC and platelets trending down. Unclear etiology to me. I will consult hematology. - Depression - patient very sad today and crying, depressed for her current health situation and the loss of her boyfriend. I will consult psychiatry. Full code. SCDs. Discharge Planning Continue to monitor in the medical/surgical floor. Problem Qualifiers (1) Drug overdose: Qualified Code: T50.904A - Drug overdose, undetermined intent, initial encounter (2) Acute kidney failure: Qualified Code: N17.9 - Acute renal failure, unspecified acute renal failure type (3) Anemia: Daniel Goncalves MD Aug 31, 2016 10:29
[2016-08-31 12:00] VITALS: BP 129/86; PULSE 67; RESP 16; TEMP 98.2; O2SAT 100
[2016-08-31] MEDS: FERROUS SULFATE 325 MG (65 MG ELEMENTAL IRON) TAB PO SCH ×2 (13:21→16:30)
--- NOTE | 2016-08-31 14:38 | PD.CAR.PN ---
CVT Progress Note Subjective/Hospital Course: Patient with clinical findings of medial and lateral thigh compartment syndrome For OR now Thanks Delaney 07/26/16 Patient underwent yesterday and medial and lateral fasciotomy of the thigh debridement Today she underwent washout the both, closure of the medial fasciotomy skin and wound VAC placement on lateral fasciotomy The lateral fasciotomy will need wound VAC for but 2 weeks and then this can be covered with the partial-thickness skin graft by plastic surgery 07/27/16 Status post the thigh compartment syndrome with medial and lateral fasciotomy of the right leg Yesterday patient went for washout closure and drainage of the medial fasciotomy site while the lateral fasciotomy from hip to the knee remains open Wound VAC in place Hemoglobin now stable and there is no other source of bleeding Patient was in active DIC and fibrinolysis for the first 48 hours and this is now abating Agree with blood and blood products administration Platelets remain stable and unless these drop on the 30,000 would probably not transfuse Patient can be out of bed and should be bearing weight on this leg as much as possible 07/28/16 CHAZ drainage from the medial closure of the thighs decreased but I will leave it in till the swelling decreases and the third space abates for otherwise patient will develop a seroma in this area Lateral incision now covered with a wound VAC is draining minimally Hemoglobin remains stable Plan Starting tomorrow will have wound care assist with changing wound VAC at the bedside and I will consult plastic surgery for grafting of the wound in the near future 07/29/16 Medial compartment is closed and drainage is minimal so we will DC CHAZ Lateral thigh compartment is open clean and we will start wound VAC changes today Eventually patient will go to the OR for another washout and perhaps little more closure of this area but for the most part she will need a skin grafting of this area 07/30/2016 Medial incision is clean and dry Lateral incision wound VAC has been changed yesterday and he looks nice and clean and granulating nicely Patient will need several wound VAC exchange to before graft can be placed in this area Continue care Patient can transfer to the floor from my point 08/05/16 The patient will undergo tomorrow placement of acellular matrix xenograft in the operating room Wound VAC will then remain on it for about 10 days and then after that patient can be grafted This procedure should take about 30 minutes and then patient will be able to go to rehabilitation or even [place] for about 10 days and then return to us for grafting 08/07/16 Patient underwent yesterday washout of her fasciotomy site of the right thigh with placement of a acellular xenograft to improve granulation and the allow for eventual partial-thickness skin graft placement The drainage from the wound VAC at this point will be copious considering the inflammatory reaction that the xenograft induces so this is expected. In addition patient dropped hemoglobin and will be given 2 units of blood The wound VAC will stay on for about 9 days at this point so patient can either stay in our hospital or be transferred possibly to [place] till the time comes to remove the wound VAC for it will have to be done in the operating room At that time area will be ready for grafting or he may need another 10 days of xenograft is a granulation is not sufficient I will consult Dr. Juares to see the patient for skin grafting when the time comes 08/10/16 Wound VAC is in position and drainage has now significantly decreased Patient is excellent distal pulses and leg is warm Patient could move to [place] from my point till the time comes to remove the wound VAC is another week Nothing to add to care let this time 08/12/16 Patient doing well at this time Drainage from the wound VAC is minimal Patient will be taken back to the operating room on Tuesday for evaluation and washout with possible grafting Patient may need another 9 or 10 days of the acellular matrix depending on the granulation tissue present next week or may be graftable next week We'll consult Dr. Juares for the grafting 08/17/16 Patient underwent yesterday washout reapplication off acellular matrix with placement of the wound VAC Incisions are clean and dry, stitches have been removed proximal and distal to the fasciotomy defect and fasciotomies covered with the above mentioned wound VAC Serosanguineous drainage By next week patient will be ready for skin grafting and Dr. Juares will be consulted 08/18/[address] with serosanguineous drainage Patient states she has no pain in this leg anymore Excellent distal flow Grafting next week 08/21/16 Wound VAC in position and serosanguineous drainage Hemoglobin remains stable I've consult the plastic surgery for grafting but was told that there was no plastic surgery coverage yesterday so the consult will go to the next plastic surgeon it operations analyst which is fine with me Patient will need a partial-thickness skin graft on the fasciotomy site of the right thigh, based on plastic surgeons opinion and expert consultation 08/23/16 Patient to go tomorrow for the wound VAC removal and replacement and removal of the remnants of the acellular matrix with washout Spoken to Dr. Guerra of the plastic surgeon and he will accompany me in the OR to evaluate the wound for grafting He is kind assistance is greatly appreciated 08/25/16 Patient underwent successful placement of a new wound VAC yesterday and removal of the remnants of the acellular matrix The bed is nicely granulated and Dr. Guerra will proceed with placement of a skin graft in the next few days Medial aspect of the thigh fasciotomies nicely healed and stitches have been removed 08/27/[address] in place clean and dry Dr. Guerra can proceed with grafting any time and judging from his note possibly this or Tuesday08/31/16 Patient with a large wound after fasciotomy of the right thigh as been debrided several times and the wound VAC was placed several times including use off acellular matrix Yesterday Dr. Guerra was kind enough to bring the wound little more and prepare for the grafting Wound is overgrown with Indigo so he'll take a while for this to be ready At this point I will sign off considering that patient is in the expert hands of a very experienced plastic surgeon If any other help is needed from my point please reconsult me Thanks J Objective: Vital Signs Date Time Temp Pulse Resp B/P Pulse Ox O2 Delivery O2 Flow Rate FiO2 08/31/16 12:00 98.2 67 16 129/86 100 08/31/16 09:34 118/84 08/31/16 08:00 97.6 53 15 99/54 98 08/31/16 04:07 17 08/31/16 00:00 97.8 97 20 110/68 97 08/30/16 20:00 97.6 96 18 104/65 99 08/30/16 16:00 97.5 81 17 101/68 98 Labs: Laboratory Tests Test 08/31/16 05:04 White Blood Count 3.6 TH/MM3 (4.0-11.0) Red Blood Count 2.59 MIL/MM3 (4.00-5.30) Hemoglobin 8.0 GM/DL (11.6-15.3) Hematocrit 22.5 % (35.0-46.0) Mean Corpuscular Volume 86.8 FL (80.0-100.0) Mean Corpuscular Hemoglobin 30.8 PG (27.0-34.0) Mean Corpuscular Hemoglobin 35.5 % Concent (32.0-36.0) Red Cell Distribution Width 14.6 % (11.6-17.2) Platelet Count 145 TH/MM3 (150-450) Mean Platelet Volume 7.8 FL (7.0-11.0) Neutrophils (%) (Auto) 67.0 % (16.0-70.0) Lymphocytes (%) (Auto) 24.2 % (9.0-44.0) Monocytes (%) (Auto) 7.6 % (0.0-8.0) Eosinophils (%) (Auto) 0.7 % (0.0-4.0) Basophils (%) (Auto) 0.5 % (0.0-2.0) Neutrophils # (Auto) 2.4 TH/MM3 (1.8-7.7) Lymphocytes # (Auto) 0.9 TH/MM3 (1.0-4.8) Monocytes # (Auto) 0.3 TH/MM3 (0-0.9) Eosinophils # (Auto) 0.0 TH/MM3 (0-0.4) Basophils # (Auto) 0.0 TH/MM3 (0-0.2) CBC Comment DIFF FINAL Differential Comment Sodium Level 139 MEQ/L (136-145) Potassium Level 4.1 MEQ/L (3.5-5.1) Chloride Level 106 MEQ/L (98-107) Carbon Dioxide Level 25.0 MEQ/L (21.0-32.0) Anion Gap 8 MEQ/L (5-15) Blood Urea Nitrogen 6 MG/DL (7-18) Creatinine 1.27 MG/DL (0.50-1.00) Estimat Glomerular Filtration 49 ML/MIN (>89) Rate Random Glucose 110 MG/DL (74-106) Calcium Level 8.2 MG/DL (8.5-10.1) Phosphorus Level 4.3 MG/DL (2.5-4.9) Magnesium Level 1.5 MG/DL (1.5-2.5) Total Bilirubin 0.2 MG/DL (0.2-1.0) Aspartate Amino Transf 13 U/L (15-37) (AST/SGOT) Alanine Aminotransferase 14 U/L (10-53) (ALT/SGPT) Alkaline Phosphatase 64 U/L (45-117) Total Protein 5.1 GM/DL (6.4-8.2) Albumin 2.2 GM/DL (3.4-5.0) Result Diagram: 08/31/16 0504 08/31/16 0504 (1) Drug overdose (2) Hypocalcemia (3) SIRS (systemic inflammatory response syndrome) (4) Renal failure (5) Hyperkalemia (6) Lactic acidosis (7) Altered mental status (8) Severe sepsis (9) Elevated troponin (10) Severe metabolic acidosis (11) Acute kidney failure (12) Leukocytosis (13) Hip hematoma, right (14) Small right middle lobe consolidation (15) Rhabdomyolysis (16) Compartment syndrome of right lower extremity Problem Qualifiers (1) Drug overdose: Qualified Code: T50.904A - Drug overdose, undetermined intent, initial encounter (2) Acute kidney failure: Qualified Code: N17.9 - Acute renal failure, unspecified acute renal failure type (3) Leukocytosis: Qualified Code: D72.829 - Leukocytosis, unspecified type Saw Turner MD Aug 31, 2016 14:37
[2016-08-31 16:00] VITALS: BP 116/74; PULSE 71; RESP 17; TEMP 98.7; O2SAT 100
[2016-08-31] MEDS: FLUCONAZOLE 200 MG TAB PO SCH (16:30)
--- NOTE | 2016-08-31 18:10 | MB ---
cc: ELYSSA DIAZ MD DATE OF CONSULTATION 08/31/[address] Sanderson REASON FOR CONSULTATION Hematology is consulted to render opinion regarding patient with pancytopenia. HISTORY OF PRESENT ILLNESS The patient is a 30-year-old female admitted to the hospital the end of June after she was found overdose and passed out. She was found to have Rhabdomyolysis. She also developed compartment syndrome of the right thigh and underwent fasciotomy. She also had multiple debridements. At one point, she had a wound VAC placed. She also has sepsis with urinary tract infection, pneumonia and being treated with various antibiotics including vancomycin, Zosyn, daptomycin and Levaquin. She had renal failure and liver failure when she first presented. She has had multiple blood transfusions. She had total of 8 units of packed red blood cell transfusion. Her last unit of packed red blood transfusion was August 27. She also had cryoprecipitate plus fresh frozen plasma transfusion, but those were all done in June. At this point, she denies any fever or chills. Denies any chest pain. She denies any shortness of breath or cough, denied any bleeding or bruising, any nausea or vomiting, diarrhea or abdominal pain, denies any melena or hematochezia. PAST MEDICAL HISTORY 1. Foot fracture 2. Drug abuse. PAST SURGICAL HISTORY Recent fasciotomy and multiple debridements FAMILY HISTORY One brother healthy. Mother had leukemia. She has no children. SOCIAL HISTORY She smoked marijuana. She lately started using cocaine and heroin. She drinks alcohol. ALLERGIES NO KNOWN DRUG ALLERGIES. MEDICATIONS Current, 1. Diflucan 2. Ferrous sulfate. 3. Amlodipine. 4. Clonidine. 5. Thiamine, 6. Lactulose 7. Famotidine 8. 9. Aspirin. 10. Multivitamin. 11. Folic acid. REVIEW OF SYSTEMS CONSTITUTIONAL: Denies any fever or chills. EYES: Denies any blurry vision, double vision. ENT: No mouth sores or voice changes. CARDIOVASCULAR: Denies chest pressure, palpitation RESPIRATORY: Denies shortness of breath or cough. GI: Denies nausea, vomiting, diarrhea, abdominal pain : Denies any dysuria, hematuria MUSCULOSKELETAL: As above. HEMATOLOGY: As above. ENDOCRINE: Negative. HEMATOLOGY: As above. NEUROLOGIC: Negative. PSYCHIATRIC: Negative. PHYSICAL EXAMINATION VITAL SIGNS: Temperature 98.2, blood pressure 129/86, O2 saturation 100% on room air. GENERAL: She is alert and oriented x3 in no acute distress. HEENT: Atraumatic, normocephalic. Pupils equal, round and reactive to light. Extraocular muscles intact. No scleral icterus. Oropharynx dry mucosa. No lesion. NECK: No thyromegaly. No palpable masses. LYMPHATICS: No palpable cervical, clavicular, axillary or inguinal lymph node CARDIOVASCULAR: Regular S1-S2, no murmur. LUNGS: Clear to auscultation, without wheezing or rhonchi. ABDOMEN: Soft, nontender. I Could not palpate liver or spleen. EXTREMITIES: No cyanosis or clubbing or edema. The right thigh dressing is dry. SKIN: No rash or petechiae. NEUROLOGIC: Nonfocal. LABORATORY DATA Laboratory data reviewed ASSESSMENT 1. Pancytopenia which I think is multifactorial due to recent sepsis, liver failure. She has had multiple surgeries to debride the right thigh wound. I think she has a consumptive process like DIC. She likely also have blood loss from multiple surgeries on the wound. She has not had menstrual period during this hospital stay. Her white blood cell count was normal until about a week ago and this has been around 4000 the last few days. She is not neutropenic. Her platelet count was normal since the middle of July. Her hemoglobin has been around eight for the last week. She did receive 1 unit of packed red blood cell transfusion recorded on August 27. I suspect she likely also has some iron deficiency from iron loss. She is currently on iron supplement, but I am not sure if she is absorbing the iron. I am going to check a vitamin study and iron study but may be difficult to interpret the iron study because of recent blood transfusion. We will also check a DIC panel. If she indeed has significant iron deficiency. I will give her iron infusion. I doubt that she has primary bone marrow disorder. I recommend to continue to monitor the CBC for now. 2. Right thigh compartment syndrome status post fasciotomy. She still has an open wound. She had multiple debridement 3. Recent sepsis with urinary tract infection and pneumonia. She has completed a course of antibiotic, no evidence of infection at this time. 4. Recent liver failure which has resolved. 5. Acute renal failure which has improved. RECOMMENDATIONS 1. Check an iron study and vitamin study. 2. Check a DIC panel. 3. If she has significant iron deficiency, I will give her Venofer infusion. 4. Continue to monitor CBC. Thank you, Dr. Sanderson, for asking me to see this patient. MD JESIKA Jaimes/ /5:05 PM /5:46 PM OTTONIEL
[2016-08-31 20:00] VITALS: BP 114/68; PULSE 70; RESP 20; TEMP 98; O2SAT 96
[2016-09-01] VITALS: BP 118/70; PULSE 68; RESP 20; TEMP 97.8; O2SAT 98
[2016-09-01 06:35] LABS: AUTOMATED NEUTROPHIL # 1.6 TH/MM3 (1.8-7.7); BASOPHIL % 0.8 % (0.0-2.0); EOSINOPHIL # 0.1 TH/MM3 (0-0.4); EOSINOPHIL % 3.9 % (0.0-4.0); HEMATOCRIT 22.3 % (35.0-46.0); HEMO FLAGS DIFF FINAL; LYMPH % 41.9 % (9.0-44.0); LYMPHOCYTE # 1.4 TH/MM3 (1.0-4.8); MEAN CELL VOLUME 88.4 FL (80.0-100.0); MONO % 6.9 % (0.0-8.0); NEUT % 46.5 % (16.0-70.0); PLATELET COUNT 131 TH/MM3 (150-450); RED BLOOD COUNT 2.53 MIL/MM3 (4.00-5.30); RED CELL DISTRIBUTION WIDTH 15.1 % (11.6-17.2); REVIEW FLAG FINAL; WHITE BLOOD COUNT 3.3 TH/MM3 (4.0-11.0)
[2016-09-01 06:56] LABS: APTT (PATIENT) 24.2 SEC (24.3-30.1); INTERNATIONAL NORMALIZED RATIO 1.1 RATIO; PROTHROMBIN TIME - PATIENT 11.7 SEC (9.8-11.6)
[2016-09-01 07:01] LABS: LDH SERUM 120 U/L (84-246); TRANSFERRIN IRON PROFILE 138 MG/DL (200-360)
[2016-09-01 07:14] LABS: FERRITIN 202 NG/ML (8-252)
[2016-09-01 08:00] VITALS: BP 113/69; PULSE 77; RESP 16; TEMP 99; O2SAT 100
[2016-09-01] MEDS: LACTULOSE SYRUP 20 GM/30 ML CUP PO SCH ×2 (09:00→19:32)
[2016-09-01] MEDS: FLUCONAZOLE 200 MG TAB PO SCH (09:01)
[2016-09-01] MEDS: MULTIVITAMIN TAB PO SCH (09:01)
[2016-09-01] MEDS: FAMOTIDINE 20 MG TAB PO SCH ×2 (09:01→19:33)
[2016-09-01] MEDS: THIAMINE HCL 100 MG TAB PO SCH (09:01)
[2016-09-01] MEDS: FOLIC ACID 1 MG TAB PO SCH (09:01)
[2016-09-01] MEDS: RIFAXIMIN 550 MG TAB PO SCH ×2 (09:01→19:32)
[2016-09-01] MEDS: ASPIRIN EC 325 MG TABEC PO SCH (09:02)
--- NOTE | 2016-09-01 09:30 | PD.ONC.PN ---
Subjective Subjective Remarks No CP/SOB. No active bleeding. Objective Data Date Time Temp Pulse Resp B/P Pulse Ox O2 Delivery O2 Flow Rate FiO2 09/01/16 08:00 99.0 77 16 113/69 100 09/01/16 04:03 16 09/01/16 00:00 97.8 68 20 118/70 98 08/31/16 20:00 98.0 70 20 114/68 96 08/31/16 16:00 98.7 71 17 116/74 100 08/31/16 12:00 98.2 67 16 129/86 100 08/31/16 09:34 118/84 09/01/16 09/01/16 09/01/16 07:00 15:00 23:00 Intake Total 240 ml Output Total 550 ml Balance -310 ml Result Diagram: 09/01/16 0442 08/31/16 0504 Laboratory Results Laboratory Tests Test 09/01/16 04:42 White Blood Count 3.3 TH/MM3 Red Blood Count 2.53 MIL/MM3 Hemoglobin 7.6 GM/DL Hematocrit 22.3 % Mean Corpuscular Volume 88.4 FL Mean Corpuscular Hemoglobin 30.0 PG Mean Corpuscular Hemoglobin 34.0 % Concent Red Cell Distribution Width 15.1 % Platelet Count 131 TH/MM3 Mean Platelet Volume 8.1 FL Neutrophils (%) (Auto) 46.5 % Lymphocytes (%) (Auto) 41.9 % Monocytes (%) (Auto) 6.9 % Eosinophils (%) (Auto) 3.9 % Basophils (%) (Auto) 0.8 % Neutrophils # (Auto) 1.6 TH/MM3 Lymphocytes # (Auto) 1.4 TH/MM3 Monocytes # (Auto) 0.2 TH/MM3 Eosinophils # (Auto) 0.1 TH/MM3 Basophils # (Auto) 0.0 TH/MM3 CBC Comment DIFF FINAL Differential Comment Reticulocyte Count 2.0 % Absolute Reticulocyte Count 49.9 MIL/L Prothrombin Time 11.7 SEC Prothromb Time International 1.1 RATIO Ratio Activated Partial 24.2 SEC Thromboplast Time Fibrinogen 115 mg/dL Iron Level 39 MCG/DL Total Iron Binding Capacity 193 MCG/DL Percent Iron Saturation 20.2 % Ferritin 202 NG/ML Lactate Dehydrogenase 120 U/L C-Reactive Protein 0.73 MG/DL Folate GREATER THAN 20.0 NG/ML Culture Results Microbiology Date/Time Procedure Status Source Growth 08/30/16 12:31 Gram Stain - Final Resulted Wound Thigh 08/30/16 12:31 Wound Culture - Preliminary Resulted Gram Negative Ramses 08/30/16 12:31 Acid Fast Stain Received Wound Thigh Pending 08/30/16 12:31 Mycobacterial Culture Received Wound Thigh Pending 08/30/16 12:31 Fungal Smear - Final Resulted Wound Thigh NO FUNGAL ELEMENTS SEEN. 08/30/16 12:31 Fungal Culture Resulted Wound Thigh Pending Administered Medications Medications (Trade) Dose Ordered Sig/Sara Route PRN Reason Start Time Stop Time Status Last Admin Dose Admin Aspirin (Ecotrin Ec) 325 mg DAILY PO 07/26/16 09:00 09/01/16 09:02 Morphine Sulfate (Morphine Inj) 4 mg Q2H PRN IV breaktgrough PAIN 07/25/16 23:45 08/23/16 14:30 Multivitamins (Theragran) 1 tab DAILY PO 07/26/16 09:00 09/01/16 09:01 Folic Acid (Folate) 1 mg DAILY PO 07/26/16 09:00 09/01/16 09:01 Ondansetron HCl (Zofran Inj) 4 mg Q6H PRN IV NAUSEA OR VOMITING 07/26/16 08:00 07/29/16 04:18 Rifaximin (Xifaxan) 550 mg BID PO 07/26/16 10:00 09/01/16 09:01 Hydralazine HCl (Apresoline Inj) 10 mg Q1HR PRN IV PUSH SBP>160, DBP>90 07/28/16 09:30 08/01/16 09:30 Famotidine (Pepcid) 10 mg BID PO 07/29/16 09:00 09/01/16 09:01 Oxycodone HCl (Roxicodone) 5 mg Q6H PRN PO PAIN SCALE 1 TO 10 07/29/16 09:00 09/01/16 09:02 Lactulose (Lactulose Liq) 30 ml BID PO 07/30/16 21:00 09/01/16 09:00 Heparin Sodium (Porcine) (Heparin Inj) UNSCH PRN IVF SEE PROTOCOL 07/30/16 16:15 08/11/16 11:35 Clonidine (Catapres) 0.1 mg Q12HR PO 08/02/16 11:00 08/31/16 19:41 Amlodipine Besylate (Norvasc) 10 mg DAILY PO 08/03/16 09:00 08/30/16 08:20 Thiamine HCl (Vitamin B1) 100 mg DAILY PO 08/02/16 11:00 09/01/16 09:01 Benzonatate (Tessalon) 100 mg TID PRN PO cough 08/13/16 19:30 08/13/16 20:26 Metoprolol Tartrate (Lopressor) 12.5 mg Q8HR PRN PO tachycardia 08/15/16 15:00 08/15/16 15:50 Ferrous Sulfate (Ferrous Sulfate) 325 mg BID@ PO 08/18/16 17:00 08/31/16 16:30 Fluconazole (Diflucan) 200 mg DAILY PO 08/31/16 13:00 09/01/16 09:01 Objective Remarks GENERAL: Well-nourished, well-developed patient. SKIN: Warm and dry. Pale HEAD: Normocephalic. EYES: No scleral icterus. No injection or drainage. NECK: Supple, trachea midline. No JVD or lymphadenopathy. LYMPHATIC: No adenopathy. CARDIOVASCULAR: Regular rate and rhythm without murmurs. RESPIRATORY: Breath sounds equal bilaterally. No accessory muscle use. GASTROINTESTINAL: Abdomen soft, non-tender, nondistended. EXTREMITIES: No cyanosis, or edema. Right thigh dressing dry, no active bleeding. MUSCULOSKELETAL: Adequate muscle tone. NEUROLOGICAL: No obvious focal deficit. Awake, alert, and oriented x3. PSYCHIATRIC: Appropriate mood and affect; insight and judgment normal. Assessment/Plan Assessment 1. Pancytopenia which I think is multifactorial due to recent sepsis, liver failure. She has had multiple surgeries to debride the right thigh wound. I think she has a consumptive process like DIC. She likely also have blood loss from multiple surgeries on the wound. She has not had menstrual period during this hospital stay. Her white blood cell count was normal until about a week ago and this has been around 4000 the last few days. She is not neutropenic. Her platelet count was normal since the middle of July. Her hemoglobin has been around eight for the last week. She did receive 1 unit of packed red blood cell transfusion recorded on August 27. I doubt that she has primary bone marrow disorder. I recommend to continue to monitor the CBC for now. 09/01/2016 Labs showed DIC with hypofibrinogenemia, blood counts trended slightly lower. No active bleeding noted. No significant symptoms. Not able to interpret iron study due to recent PRBC transfusion. 2. Right thigh compartment syndrome status post fasciotomy. She still has an open wound. She had multiple debridement 3. Recent sepsis with urinary tract infection and pneumonia. She has completed a course of antibiotic, no evidence of infection at this time. 4. Recent liver failure which has resolved. 5. Acute renal failure which has improved. Plan PLAN: 1. Will transfuse cryoprecipitate if she has any sign of bleeding. 2. No need for transfusion today. 3. Continue to monitor CBC. Stu Felix MD Sep 01, 2016 09:30
--- NOTE | 2016-09-01 09:59 | HHI.PR ---
Subjective Remarks states minimal pain- right thigh denies any nausea or vomiting up and getting around with a walker, denies any diarrhea, chest pains or shortness of breath states voiding well, good po intake Objective Vitals Vital Signs Date Time Temp Pulse Resp B/P Pulse Ox O2 Delivery O2 Flow Rate FiO2 09/01/16 08:00 99.0 77 16 113/69 100 09/01/16 04:03 16 09/01/16 00:00 97.8 68 20 118/70 98 08/31/16 20:00 98.0 70 20 114/68 96 08/31/16 16:00 98.7 71 17 116/74 100 08/31/16 12:00 98.2 67 16 129/86 100 I/O 08/31/16 08/31/16 08/31/16 09/01/16 09/01/16 09/01/16 07:00 15:00 23:00 07:00 15:00 23:00 Intake Total 360 ml 720 ml 720 ml 240 ml Output Total 450 ml 650 ml 550 ml Balance -90 ml 720 ml 70 ml -310 ml Intake Oral 360 ml 720 ml 720 ml 240 ml IV Total 0 ml Output Urine Total 450 ml 650 ml 550 ml # Voids 2 # Bowel Movements 0 1 0 0 # Sanitary Pads 1 Pads Result Diagram: 09/01/16 0442 08/31/16 0504 Imaging Last Impressions Liver Biopsy CT 08/13/16 0000 Signed Impressions: Service Date/Time: Saturday, August 13, 2016 12:42 - CONCLUSION: Uncomplicated CT guided biopsy. Raymundo Agarwal MD Chest X-Ray 08/09/16 0000 Signed Impressions: Service Date/Time: Tuesday, August 09, 2016 19:30 - CONCLUSION: 1. Interval placement of double-lumen central venous line. 2. Hazy opacity at the lung bases with mild blunting of the left costophrenic angle which could indicate a small effusion. Nael Zuñiga MD Catheter Placement X-Ray 07/30/16 0000 Signed Impressions: Service Date/Time: Saturday, July 30, 2016 14:14 - CONCLUSION: Uncomplicated line placement as above. Judson Cee MD Brain MRI 07/29/16 0000 Signed Impressions: Service Date/Time: July 13:34 - CONCLUSION: 1. Abnormal examination of the brain demonstrating areas of T2 signal and abnormal diffusion signal involving the globus pallidus bilaterally and the mesial temporal lobes bilaterally. Primary considerations would include carbon monoxide poisoning versus other partial anoxic brain injury. Please see above discussion. Aamir Narayanan MD Abdomen Ultrasound 07/26/16 Signed Impressions: Service Date/Time: Tuesday, July 26, 2016 10:21 - CONCLUSION: 1. Small amount of free fluid adjacent to the lower poles of both kidneys. 2. Obscuration of the head of the pancreas, distal IVC and aorta due to overlying bowel gas. 3. Otherwise negative. Judson Cee MD Lower Extremity CT 07/25/16 0000 Signed Impressions: Service Date/Time: Monday, July 25, 2016 18:54 - CONCLUSION: Extensive nonspecific myositis of the right thigh, also involves gluteus medius and minimus proximally and at least medial gastrocnemius below the knee. Infectious/inflammatory and ischemic etiologies would be in the differential. No gas bubbles are seen to substantiate necrotizing fasciitis. No organized/drainable abscess. Glenroy Sheffield MD Hip and Pelvis X-Ray 07/25/16 Signed Impressions: Service Date/Time: Monday, July 25, 2016 16:52 - CONCLUSION: Intact pelvis and right hip. Nonspecific surrounding soft tissue swelling Glenroy Sheffield MD Head CT 07/25/16 0000 Signed Impressions: Service Date/Time: Monday, July 25, 2016 14:38 - CONCLUSION: Negative noncontrast head CT. Glenroy Sheffield MD Chest CT 07/25/16 0000 Signed Impressions: Service Date/Time: Monday, July 25, 2016 16:37 - CONCLUSION: Focal dense consolidation right middle lobe, nonspecific but most likely infectious or inflammatory. Also a 3 mm right basilar pulmonary nodule Followup noncontrast chest CT in a few months recommended to confirm resolution/stability. Glenroy Sheffield MD Abdomen/Pelvis CT 07/25/16 0000 Signed Impressions: Service Date/Time: Monday, July 25, 2016 16:37 - CONCLUSION: 1. Fatty liver and 21 mm right ovarian cyst. Otherwise, no acute abnormality seen within the abdomen or pelvis. 2. Swollen, heterogeneous right hip musculature, primarily gluteus medius and minimus, rectus femoris and vastus lateralis and the adductor muscles. This is nonspecific but suggests a subacute hematoma of these structures. Nothing organized/measurable. 3. Chronic L5 pars defects with grade 2 L5/S1 spondylolisthesis. Glenroy Sheffield MD Objective Remarks GENERAL: awake and alert, oriented x 3, speech clear, appears apathetic SKIN: Warm and dry. HEAD: Normocephalic. EYES: No scleral icterus. No injection or drainage. NECK: Supple, trachea midline. No JVD or lymphadenopathy. CARDIOVASCULAR: Regular rate and rhythm without murmurs, gallops, or rubs. RESPIRATORY: Breath sounds equal bilaterally. No accessory muscle use. GASTROINTESTINAL: Abdomen soft, non-tender, nondistended. Right thigh- dressing intact with packing in place good peripheral pulses, no calves tenderness Procedures 08/24/2016 Washout of the right thigh removal of acellular matrix and placement of the wound VAC. 08/16/2016 Washout of the fasciotomy site with reattachment of acellular matrix and wound Vac. 08/06/2016 Washout of the fasciotomy site and placement of acellular matrix coverage with wound VAC placement. 07/26/2016 Pulse irrigation of the medial and lateral fasciotomy, closure of the medial wound, partial closure of the lateral wound and large wound Vac placement. 07/25/2016 Medial and lateral fasciotomy and compartment release of the thigh with right gluteal area. A/P Problem List: (1) Compartment syndrome of right lower extremity ICD Code: T79.A21A Status: Resolved (2) Rhabdomyolysis ICD Code: M62.82 Status: Resolved (3) Drug overdose ICD Code: T50.901A Status: Resolved (4) Acute kidney failure ICD Code: N17.9 Status: Resolved (5) Small right middle lobe consolidation Status: Resolved (6) Hip hematoma, right ICD Code: S70.01XA Status: Resolved (7) Leukopenia ICD Code: D72.819 Status: Acute (8) Anemia ICD Code: D64.9 Status: Acute Assessment and Plan Ms. Sahu is a 30 year old female who was admitted to the hospital on 2015 to the ICU due to drug overdose, right sided numbness, hyperkalemia, CARLITO, hypotension, liver enzyme elevation, troponin elevation. Cardiology was contacted on the day of admission, STEMI was not suspected by cardiology. Patient admitted to using cocaine night prior to this admission. She also uses heroine. Patient right thigh was noted to be swollen with severe tenderness. Subsequently, patient underwent fasciotomy for compartment syndrome. Wound vac was placed. Patient underwent several surgical intervention by Dr. Turner with regards to her right thigh. Patient also required hemodialysis with regards to her CARLITO. Due to improvement of her renal function, hemodialysis has been discontinued. - Right thigh compartment syndrome - Status post right fasciotomy and wound VAC placement by Dr. Turner - Plastic surgery on board for possible skin graft. - Continue oxycodone, morphine when necessary for pain - s/p Washout of the right thigh removal of acellular matrix and placement of the wound VAC on 08/24/2016. - sp placement of new wound vac by surgery ---> Possible Split thickness skin graft 4-5 days. - 08/28 evaluated by plastic surgery today. Plastic surgery noted several white spots likely due to zeny. - S/P right thigh debridement by plastic - 08/31 - Continue pain control. - Severe sepsis - Escherichia coli urinary tract infection - Currently resolved. Infectious disease following along with us - Patient received Vanc, zosyn and later Daptomycin and Levaquin. - now off antibiotics - started on Diflucan 08/31 -Pancytopenia due to sepsis, DIC. liver failure- Macrocytic anemia - Thrombocytopenia - Symptomatic anemia - Transfused total 4 units PRBCs, 2 pack platelets, 2 FFP 2 cryo-since admission - currently Hgb stable - 8.7 on 08/20/2016. - Sp transfusion of 1 unit PRBC on 08/27 hb 7.8 ----> 9.5. - 08/31/16 patient would likely acute postop anemia, the patient's hemoglobin dropped from 9.2-8, continue to monitor hemoglobin and transfuse if less than 7 or patient symptomatic. - Dr. Felix consulted and will be ff along with us - S/P Acute kidney injury secondary to Rhabdom and ATN - patient with good urine output, creatinine stabilizing- non oliguric - Acute rhabdomyolysis. CPK [id number] on 07/25/2016 ==> 118 on 08/07/2016. - Continue normal saline to 75 cc per hour. Nephrology following. - Vas-Cath removed. Patient is off HD -Depression- Psychiatry ff - Polysubstance abuse including cocaine/heroine - Use PRN Ativan for anxiety and oxycodone/morphine as needed for pain. - CT of the head 07/25 revealed no acute intracranial findings. Continue aspirin, thiamine and multivitamins. - MRI brain 07/29 revealed T2 signal abnormality globus pallidus and mesial temporal lobe bilaterally. - EEG 07/30 revealed slowing system with moderate diffuse encephalopathy. No seizure activity. - Psychiatry lifted Osborn act 07/29/2016 - neurology evaluated the patient and feels that MRI results are from drug overdose. - Ophthalmology exam negative for Bre-Sylvia rings. - Mild Respiratory insufficiency secondary to pneumonia/metabolic acidosis - Small consolidation right middle lobe - Right basilar pulmonary nodule 3 mm - follow-up CT chest 3 months recommended - Tobacco abuse. - now on room air,cough has resolved, continue incentive spirometry, duo nebs. - CT chest 07/25/2016 revealed right middle lobe infiltrate along with 3 mm right basilar pulmonary nodule. - Chest x-ray 07/26/2016 reveals no significant cardio pulmonary findings - Sinus tachycardia - NSTEMI - likely due to cocaine abuse - Hypertension - on Lopressor prn. Decrease amlodipine to 5 mg po daily - Clonidine PRN. monitor and adjust - Transaminitis - resolved. - Hyperammonemia - likely due to rhabdomyolysis, hypotension. - CT of the abdomen and pelvis shows fatty liver/21 mm right ovarian cyst - Negative hepatitis panel - Xifaxan 550 twice a day/lactulose 30mg 3 times a day for elevated ammonia. - S/P liver biopsy 08/13/16 - showed minimal steatosis. - Full code. SCDs. Discharge Planning Continue to monitor in the medical/surgical floor. Problem Qualifiers (1) Drug overdose: Qualified Code: T50.904A - Drug overdose, undetermined intent, initial encounter (2) Acute kidney failure: Qualified Code: N17.9 - Acute renal failure, unspecified acute renal failure type (3) Anemia: Rocky Tyler MD Sep 01, 2016 09:59 (3) Anemia: Rocky Tyler MD Sep 01, 2016 09:59
[2016-09-01 12:00] VITALS: BP 120/85; PULSE 71; RESP 16; TEMP 97.9; O2SAT 98
[2016-09-01 15:58] VITALS: BP 127/81; PULSE 90; RESP 17; TEMP 99.7; O2SAT 99
[2016-09-01] MEDS: FERROUS SULFATE 325 MG (65 MG ELEMENTAL IRON) TAB PO SCH (17:00)
[2016-09-01] MEDS: cloNIDine HCL 0.1 MG TAB PO SCH (19:33)
[2016-09-01 20:00] VITALS: BP 129/86; PULSE 81; RESP 17; TEMP 98.4; O2SAT 93
[2016-09-01 23:32] VITALS: BP 125/84; PULSE 80; RESP 16; TEMP 99; O2SAT 97
[2016-09-02 05:54] LABS: AUTOMATED NEUTROPHIL # 2.7 TH/MM3 (1.8-7.7); BASOPHIL % 0.6 % (0.0-2.0); EOSINOPHIL # 0.1 TH/MM3 (0-0.4); EOSINOPHIL % 2.6 % (0.0-4.0); HEMATOCRIT 25.7 % (35.0-46.0); HEMO FLAGS DIFF FINAL; LYMPH % 30.4 % (9.0-44.0); LYMPHOCYTE # 1.4 TH/MM3 (1.0-4.8); MEAN CELL VOLUME 88.3 FL (80.0-100.0); MEAN CORPUSCULAR HEMOGLOBIN 31.1 PG (27.0-34.0); MEAN CORPUSCULAR HGB CONC 35.2 % (32.0-36.0); MONO % 7.1 % (0.0-8.0); NEUT % 59.3 % (16.0-70.0); PLATELET COUNT 157 TH/MM3 (150-450); RED BLOOD COUNT 2.92 MIL/MM3 (4.00-5.30); RED CELL DISTRIBUTION WIDTH 14.5 % (11.6-17.2); WHITE BLOOD COUNT 4.5 TH/MM3 (4.0-11.0)
[2016-09-02 06:04] LABS: APTT (PATIENT) 26.4 SEC (24.3-30.1); INTERNATIONAL NORMALIZED RATIO 1.1 RATIO; PROTHROMBIN TIME - PATIENT 11.7 SEC (9.8-11.6)
[2016-09-02 08:00] VITALS: BP 126/86; PULSE 98; RESP 16; TEMP 100; O2SAT 96
--- NOTE | 2016-09-02 08:05 | HHI.PR ---
Subjective Remarks thigh pain well controlled no cough, shortness of breath, no urinary symptoms patient up and ambulating independently Objective Vitals Vital Signs Date Time Temp Pulse Resp B/P Pulse Ox O2 Delivery O2 Flow Rate FiO2 09/01/16 23:32 99.0 80 16 125/84 97 09/01/16 20:00 98.4 81 17 129/86 93 09/01/16 15:58 99.7 90 17 127/81 99 09/01/16 12:00 97.9 71 16 120/85 98 I/O 09/01/16 09/01/16 09/01/16 09/02/16 09/02/16 09/02/16 07:00 15:00 23:00 07:00 15:00 23:00 Intake Total 240 ml 480 ml 580 ml 340 ml Output Total 550 ml 300 ml Balance -310 ml 180 ml 580 ml 340 ml Intake Oral 240 ml 480 ml 580 ml 340 ml IV Total 0 ml Output Urine Total 550 ml 300 ml # Voids 3 2 # Bowel Movements 0 1 1 # Sanitary Pads 1 Pads Result Diagram: 09/02/16 0540 08/31/16 0504 Imaging Last Impressions Liver Biopsy CT 08/13/16 0000 Signed Impressions: Service Date/Time: Saturday, August 13, 2016 12:42 - CONCLUSION: Uncomplicated CT guided biopsy. Raymundo Agarwal MD Chest X-Ray 08/09/16 0000 Signed Impressions: Service Date/Time: Tuesday, August 09, 2016 19:30 - CONCLUSION: 1. Interval placement of double-lumen central venous line. 2. Hazy opacity at the lung bases with mild blunting of the left costophrenic angle which could indicate a small effusion. Nael Zuñiga MD Catheter Placement X-Ray 07/30/16 0000 Signed Impressions: Service Date/Time: Saturday, July 30, 2016 14:14 - CONCLUSION: Uncomplicated line placement as above. Judson Cee MD Brain MRI 07/29/16 0000 Signed Impressions: Service Date/Time: July 13:34 - CONCLUSION: 1. Abnormal examination of the brain demonstrating areas of T2 signal and abnormal diffusion signal involving the globus pallidus bilaterally and the mesial temporal lobes bilaterally. Primary considerations would include carbon monoxide poisoning versus other partial anoxic brain injury. Please see above discussion. Aamir Narayanan MD Abdomen Ultrasound 07/26/16 0000 Signed Impressions: Service Date/Time: Tuesday, July 26, 2016 10:21 - CONCLUSION: 1. Small amount of free fluid adjacent to the lower poles of both kidneys. 2. Obscuration of the head of the pancreas, distal IVC and aorta due to overlying bowel gas. 3. Otherwise negative. Judson Cee MD Lower Extremity CT 07/25/16 0000 Signed Impressions: Service Date/Time: Monday, July 25, 2016 18:54 - CONCLUSION: Extensive nonspecific myositis of the right thigh, also involves gluteus medius and minimus proximally and at least medial gastrocnemius below the knee. Infectious/inflammatory and ischemic etiologies would be in the differential. No gas bubbles are seen to substantiate necrotizing fasciitis. No organized/drainable abscess. Glenroy Sheffield MD Hip and Pelvis X-Ray 07/25/16 0000 Signed Impressions: Service Date/Time: Monday, July 25, 2016 16:52 - CONCLUSION: Intact pelvis and right hip. Nonspecific surrounding soft tissue swelling Glenroy Sheffield MD Head CT 07/25/16 0000 Signed Impressions: Service Date/Time: Monday, July 25, 2016 14:38 - CONCLUSION: Negative noncontrast head CT. Glenroy Sheffield MD Chest CT 07/25/16 0000 Signed Impressions: Service Date/Time: Monday, July 25, 2016 16:37 - CONCLUSION: Focal dense consolidation right middle lobe, nonspecific but most likely infectious or inflammatory. Also a 3 mm right basilar pulmonary nodule Followup noncontrast chest CT in a few months recommended to confirm resolution/stability. Glenroy Sheffield MD Abdomen/Pelvis CT 07/25/16 0000 Signed Impressions: Service Date/Time: Monday, July 25, 2016 16:37 - CONCLUSION: 1. Fatty liver and 21 mm right ovarian cyst. Otherwise, no acute abnormality seen within the abdomen or pelvis. 2. Swollen, heterogeneous right hip musculature, primarily gluteus medius and minimus, rectus femoris and vastus lateralis and the adductor muscles. This is nonspecific but suggests a subacute hematoma of these structures. Nothing organized/measurable. 3. Chronic L5 pars defects with grade 2 L5/S1 spondylolisthesis. Glenroy Sheffield MD Objective Remarks GENERAL: awake and alert, oriented x 3, speech clear, appears apathetic SKIN: Warm and dry. HEAD: Normocephalic. EYES: No scleral icterus. No injection or drainage. NECK: Supple, trachea midline. No JVD or lymphadenopathy. CARDIOVASCULAR: Regular rate and rhythm without murmurs, gallops, or rubs. RESPIRATORY: Breath sounds equal bilaterally. No accessory muscle use. GASTROINTESTINAL: Abdomen soft, non-tender, nondistended. Right thigh- lateral aspect - dressing intact with packing in place good peripheral pulses, no calves tenderness Procedures 08/24/2016 Washout of the right thigh removal of acellular matrix and placement of the wound VAC. 08/16/2016 Washout of the fasciotomy site with reattachment of acellular matrix and wound Vac. 08/06/2016 Washout of the fasciotomy site and placement of acellular matrix coverage with wound VAC placement. 07/26/2016 Pulse irrigation of the medial and lateral fasciotomy, closure of the medial wound, partial closure of the lateral wound and large wound Vac placement. 07/25/2016 Medial and lateral fasciotomy and compartment release of the thigh with right gluteal area. A/P Problem List: (1) Compartment syndrome of right lower extremity ICD Code: T79.A21A Status: Resolved (2) Rhabdomyolysis ICD Code: M62.82 Status: Resolved (3) Drug overdose ICD Code: T50.901A Status: Resolved (4) Acute kidney failure ICD Code: N17.9 Status: Resolved (5) Small right middle lobe consolidation Status: Resolved (6) Hip hematoma, right ICD Code: S70.01XA Status: Resolved (7) Leukopenia ICD Code: D72.819 Status: Acute (8) Anemia ICD Code: D64.9 Status: Acute Assessment and Plan Ms. Sahu is a 30 year old female who was admitted to the hospital on 2015 to the ICU due to drug overdose, right sided numbness, hyperkalemia, CARLITO, hypotension, liver enzyme elevation, troponin elevation. Cardiology was contacted on the day of admission, STEMI was not suspected by cardiology. Patient admitted to using cocaine night prior to this admission. She also uses heroine. Patient right thigh was noted to be swollen with severe tenderness. Subsequently, patient underwent fasciotomy for compartment syndrome. Wound vac was placed. Patient underwent several surgical intervention by Dr. Turner with regards to her right thigh. Patient also required hemodialysis with regards to her CARLITO. Due to improvement of her renal function, hemodialysis has been discontinued. - Right thigh compartment syndrome - Status post right fasciotomy and wound VAC placement by Dr. Turner - off VAC now - Plastic surgery on board for possible skin graft. - Continue oxycodone, morphine when necessary for pain - s/p Washout of the right thigh removal of acellular matrix and placement of the wound VAC on 08/24/2016. - 08/28 evaluated by plastic surgery today. Plastic surgery noted several white spots likely due to zeny. - now on Diflucan - S/P right thigh debridement by plastic - 08/31 - Possible Split thickness skin graft 4-5 days. - S/P Severe sepsis - S/P Escherichia coli urinary tract infection - Currently resolved. Infectious disease following along with us - Patient received Vanc, zosyn and later Daptomycin and Levaquin. - now off antibiotics - Wound - culture- fasciotomy site- with Zeny - started on Diflucan 08/31 -Pancytopenia due to sepsis, DIC. liver failure- Macrocytic anemia - Thrombocytopenia - Symptomatic anemia - Transfused total 4 units PRBCs, 2 pack platelets, 2 FFP 2 cryo-since admission - H and H stable - Sp transfusion of 1 unit PRBC on 08/27 hb 7.8 ----> 9.5. - 08/31/16 patient would likely acute postop anemia, the patient's hemoglobin dropped from 9.2-8 continue to monitor hemoglobin and transfuse if less than 7 or patient symptomatic. - Dr. Felix consulted and will be ff along with us - S/P Acute kidney injury secondary to Rhabdom and ATN - patient with good urine output, creatinine stabilizing- non oliguric - Acute rhabdomyolysis. CPK [id number] on 07/25/2016 ==> 118 on 08/07/2016. - Nephrology following. - Vas-Cath removed. Patient is off HD -Depression- Psychiatry ff - Polysubstance abuse including cocaine/heroine - Use PRN Ativan for anxiety and oxycodone/morphine as needed for pain. - CT of the head 07/25 revealed no acute intracranial findings. Continue aspirin, thiamine and multivitamins. - MRI brain 07/29 revealed T2 signal abnormality globus pallidus and mesial temporal lobe bilaterally. - EEG 07/30 revealed slowing system with moderate diffuse encephalopathy. No seizure activity. - Psychiatry lifted Osborn act 07/29/2016 - neurology evaluated the patient and feels that MRI results are from drug overdose. - Ophthalmology exam negative for Bre-Sylvia rings. - Mild Respiratory insufficiency secondary to pneumonia/metabolic acidosis - Small consolidation right middle lobe - Right basilar pulmonary nodule 3 mm - follow-up CT chest 3 months recommended - Tobacco abuse. - now on room air,cough has resolved, continue incentive spirometry, duo nebs. - CT chest 07/25/2016 revealed right middle lobe infiltrate along with 3 mm right basilar pulmonary nodule. - Chest x-ray 07/26/2016 reveals no significant cardio pulmonary findings - Sinus tachycardia - NSTEMI - likely due to cocaine abuse - Hypertension - on Lopressor prn. Amlodipine to 5 mg po daily - Clonidine PRN. monitor and adjust - Transaminitis - resolved. - Hyperammonemia - likely due to rhabdomyolysis, hypotension. - CT of the abdomen and pelvis shows fatty liver/21 mm right ovarian cyst - Negative hepatitis panel - Xifaxan 550 twice a day/lactulose 30mg 3 times a day for elevated ammonia. - S/P liver biopsy 08/13/16 - showed minimal steatosis. Patient up and ambulating around CM for DC planning - Full code. SCDs. Problem Qualifiers (1) Drug overdose: Qualified Code: T50.904A - Drug overdose, undetermined intent, initial encounter (2) Acute kidney failure: Qualified Code: N17.9 - Acute renal failure, unspecified acute renal failure type (3) Anemia: Rocky Tyler MD Sep 02, 2016 08:05
[2016-09-02] MEDS: FOLIC ACID 1 MG TAB PO SCH (08:42)
[2016-09-02] MEDS: cloNIDine HCL 0.1 MG TAB PO SCH ×2 (08:42→21:08)
[2016-09-02] MEDS: FAMOTIDINE 20 MG TAB PO SCH ×2 (08:42→21:07)
[2016-09-02] MEDS: THIAMINE HCL 100 MG TAB PO SCH (08:43)
[2016-09-02] MEDS: FLUCONAZOLE 200 MG TAB PO SCH (08:43)
[2016-09-02] MEDS: ASPIRIN EC 325 MG TABEC PO SCH (08:43)
[2016-09-02] MEDS: MULTIVITAMIN TAB PO SCH (08:43)
[2016-09-02] MEDS: RIFAXIMIN 550 MG TAB PO SCH ×2 (08:43→21:08)
[2016-09-02] MEDS: LACTULOSE SYRUP 20 GM/30 ML CUP PO SCH ×2 (08:43→21:07)
[2016-09-02] MEDS: amLODIPine BESYLATE 5 MG TAB PO SCH (08:43)
--- NOTE | 2016-09-02 09:21 | PD.ONC.PN ---
Subjective Subjective Remarks Tmax 100F overnight. Patient resting comfortably without complaint. Objective Data Date Time Temp Pulse Resp B/P Pulse Ox O2 Delivery O2 Flow Rate FiO2 09/02/16 08:00 100.0 98 16 126/86 96 09/01/16 23:32 99.0 80 16 125/84 97 09/01/16 20:00 98.4 81 17 129/86 93 09/01/16 15:58 99.7 90 17 127/81 99 09/01/16 12:00 97.9 71 16 120/85 98 09/02/16 09/02/16 09/02/16 06:59 14:59 22:59 Intake Total 340 ml Balance 340 ml Result Diagram: 09/02/16 0540 08/31/16 0504 Laboratory Results Laboratory Tests Test 09/02/16 05:40 White Blood Count 4.5 TH/MM3 Red Blood Count 2.92 MIL/MM3 Hemoglobin 9.1 GM/DL Hematocrit 25.7 % Mean Corpuscular Volume 88.3 FL Mean Corpuscular Hemoglobin 31.1 PG Mean Corpuscular Hemoglobin 35.2 % Concent Red Cell Distribution Width 14.5 % Platelet Count 157 TH/MM3 Mean Platelet Volume 7.5 FL Neutrophils (%) (Auto) 59.3 % Lymphocytes (%) (Auto) 30.4 % Monocytes (%) (Auto) 7.1 % Eosinophils (%) (Auto) 2.6 % Basophils (%) (Auto) 0.6 % Neutrophils # (Auto) 2.7 TH/MM3 Lymphocytes # (Auto) 1.4 TH/MM3 Monocytes # (Auto) 0.3 TH/MM3 Eosinophils # (Auto) 0.1 TH/MM3 Basophils # (Auto) 0.0 TH/MM3 CBC Comment DIFF FINAL Differential Comment Prothrombin Time 11.7 SEC Prothromb Time International 1.1 RATIO Ratio Activated Partial 26.4 SEC Thromboplast Time Fibrinogen 154 mg/dL Culture Results Microbiology Date/Time Procedure Status Source Growth 08/30/16 12:31 Gram Stain - Final Complete Wound Thigh 08/30/16 12:31 Wound Culture - Final Complete Pseudomonas Aeruginosa 08/30/16 12:31 Acid Fast Stain - Final Resulted Wound Thigh NO ACID FAST BACILLI SEEN 08/30/16 12:31 Mycobacterial Culture Resulted Wound Thigh Pending 08/30/16 12:31 Fungal Smear - Final Resulted Wound Thigh NO FUNGAL ELEMENTS SEEN. 08/30/16 12:31 Fungal Culture Resulted Wound Thigh Pending Administered Medications Medications (Trade) Dose Ordered Sig/Sara Route PRN Reason Start Time Stop Time Status Last Admin Dose Admin Aspirin (Ecotrin Ec) 325 mg DAILY PO 07/26/16 09:00 09/02/16 08:43 Morphine Sulfate (Morphine Inj) 4 mg Q2H PRN IV breaktgrough PAIN 07/25/16 23:45 08/23/16 14:30 Multivitamins (Theragran) 1 tab DAILY PO 07/26/16 09:00 09/02/16 08:43 Folic Acid (Folate) 1 mg DAILY PO 07/26/16 09:00 09/02/16 08:42 Ondansetron HCl (Zofran Inj) 4 mg Q6H PRN IV NAUSEA OR VOMITING 07/26/16 08:00 07/29/16 04:18 Rifaximin (Xifaxan) 550 mg BID PO 07/26/16 10:00 09/02/16 08:43 Hydralazine HCl (Apresoline Inj) 10 mg Q1HR PRN IV PUSH SBP>160, DBP>90 07/28/16 09:30 08/01/16 09:30 Famotidine (Pepcid) 10 mg BID PO 07/29/16 09:00 09/02/16 08:42 Oxycodone HCl (Roxicodone) 5 mg Q6H PRN PO PAIN SCALE 1 TO 10 07/29/16 09:00 09/02/16 07:08 Lactulose (Lactulose Liq) 30 ml BID PO 07/30/16 21:00 09/02/16 08:43 Heparin Sodium (Porcine) (Heparin Inj) UNSCH PRN IVF SEE PROTOCOL 07/30/16 16:15 08/11/16 11:35 Clonidine (Catapres) 0.1 mg Q12HR PO 08/02/16 11:00 09/02/16 08:42 Thiamine HCl (Vitamin B1) 100 mg DAILY PO 08/02/16 11:00 09/02/16 08:43 Benzonatate (Tessalon) 100 mg TID PRN PO cough 08/13/16 19:30 08/13/16 20:26 Metoprolol Tartrate (Lopressor) 12.5 mg Q8HR PRN PO tachycardia 08/15/16 15:00 08/15/16 15:50 Ferrous Sulfate (Ferrous Sulfate) 325 mg BID@,17 PO 08/18/16 17:00 08/31/16 16:30 Fluconazole (Diflucan) 200 mg DAILY PO 08/31/16 13:00 09/02/16 08:43 Amlodipine Besylate (Norvasc) 5 mg DAILY PO 09/02/16 09:00 09/02/16 08:43 Objective Remarks GENERAL: Young woman, sitting up in bed in nad. Watching tv SKIN: Warm and dry. bandages in place, right thigh HEAD: Normocephalic. EYES: No injection or drainage. NECK: Supple, trachea midline. CARDIOVASCULAR: +S1/S2 RESPIRATORY: Breath sounds equal bilaterally. No accessory muscle use. GASTROINTESTINAL: Abdomen soft, non-tender, nondistended. EXTREMITIES: No cyanosis, or edema. MUSCULOSKELETAL: Adequate muscle tone. NEUROLOGICAL: No obvious focal deficit. Awake, alert, and oriented x3. Assessment/Plan Problem List: (1) Pancytopenia Status: Acute Plan: 09/02/15: monitor CBC. counts stable fibrinogen trended upward. 09/01/2016 Labs showed DIC with hypofibrinogenemia, blood counts trended slightly lower. No active bleeding noted. No significant symptoms. Not able to interpret iron study due to recent PRBC transfusion. History: --multifactorial due to recent sepsis, liver failure. --has had multiple surgeries to debride the right thigh wound. likely has a consumptive process like DIC + blood loss from multiple surgeries on the wound. --has not had menstrual period during this hospital stay. --doubt primary bone marrow disorder. Assessment 30y/o female admitted with compartment syndrome, now s/p fasciotomy with chronic open wound. Hematology consulted for pancytopenia. h/o Recent sepsis with urinary tract infection and pneumonia. completed a course of antibiotic, no evidence of infection at this time. h/o Recent liver failure which has resolved. h/o Acute renal failure which has improved. Plan 1. monitor CBC 2. no transfusion needed at present unless signs of active bleeding Attending Statement The exam, history, and the medical decision-making described in the above note were completed with the assistance of the mid-level provider. I reviewed and agree with the findings presented. I attest that I had a [id number] encounter with the patient on the same day, and personally performed and documented my assessment and findings in the medical record. No bleeding noted. DIC improving. blood counts and fibrinogen trending up. Continue to monitor. No need for transfusion today. Jeanna Lobo Sep 02, 2016 09:20 Stu Felix MD Sep 02, 2016 13:37
[2016-09-02] MEDS: FERROUS SULFATE 325 MG (65 MG ELEMENTAL IRON) TAB PO SCH ×2 (10:59→16:42)
[2016-09-02 12:00] VITALS: BP 107/75; PULSE 80; RESP 16; TEMP 97.5; O2SAT 98
--- NOTE | 2016-09-02 13:09 | PD.PLAS.PN ---
Subjective Remarks Patient doing well. "Wound looks much better" and is clean as per patient. Current cultures - Indigo and Pseudomonas being treated. Also anemia work up and treatment in progress. Will wait 2-3 days more for the antibiotic and iron treatment etc. Plan skin graft Tue or Tuesday Vital Signs Date Time Temp Pulse Resp B/P Pulse Ox O2 Delivery O2 Flow Rate FiO2 09/02/16 12:00 97.5 80 16 107/75 98 09/02/16 08:08 20 09/02/16 08:00 100.0 98 16 126/86 96 09/01/16 23:32 99.0 80 16 125/84 97 09/01/16 20:00 98.4 81 17 129/86 93 09/01/16 15:58 99.7 90 17 127/81 99 I/O 09/01/16 09/01/16 09/01/16 09/02/16 09/02/16 09/02/16 07:00 15:00 23:00 07:00 15:00 23:00 Intake Total 240 ml 480 ml 580 ml 340 ml Output Total 550 ml 300 ml Balance -310 ml 180 ml 580 ml 340 ml Intake Oral 240 ml 480 ml 580 ml 340 ml IV Total 0 ml Output Urine Total 550 ml 300 ml # Voids 3 2 # Bowel Movements 0 1 1 # Sanitary Pads 1 Pads Laboratory Tests Test 09/02/16 05:40 White Blood Count 4.5 Red Blood Count 2.92 Hemoglobin 9.1 Hematocrit 25.7 Mean Corpuscular Volume 88.3 Mean Corpuscular Hemoglobin 31.1 Mean Corpuscular Hemoglobin 35.2 Concent Red Cell Distribution Width 14.5 Platelet Count 157 Mean Platelet Volume 7.5 Neutrophils (%) (Auto) 59.3 Lymphocytes (%) (Auto) 30.4 Monocytes (%) (Auto) 7.1 Eosinophils (%) (Auto) 2.6 Basophils (%) (Auto) 0.6 Neutrophils # (Auto) 2.7 Lymphocytes # (Auto) 1.4 Monocytes # (Auto) 0.3 Eosinophils # (Auto) 0.1 Basophils # (Auto) 0.0 CBC Comment DIFF FINAL Differential Comment Prothrombin Time 11.7 Prothromb Time International 1.1 Ratio Activated Partial 26.4 Thromboplast Time Fibrinogen 154 Date/Time Procedure Status Source Growth 08/30/16 12:31 Gram Stain - Final Complete Wound Thigh 08/30/16 12:31 Wound Culture - Final Complete Pseudomonas Aeruginosa 08/30/16 12:31 Fungal Smear - Final Resulted Wound Thigh NO FUNGAL ELEMENTS SEEN. 08/30/16 12:31 Fungal Culture Resulted Wound Thigh Pending 08/30/16 12:31 Acid Fast Stain - Final Resulted Wound Thigh NO ACID FAST BACILLI SEEN 08/30/16 12:31 Mycobacterial Culture Resulted Wound Thigh Pending Result Diagram: 09/02/16 0540 08/31/16 0504 Alejandro Guerra MD Sep 02, 2016 13:09
--- NOTE | 2016-09-02 14:33 | HHI.PYPN ---
Subjective Remarks Patient was visited today for reevaluation as per primary care team requested for symptoms of depression, patient was found calm and cooperative, she described her mood as fine, denies symptoms of depression, she says that she was sad days ago due to her long hospitalization, but it was momentary. Patient says that she is future oriented, focusing her surgery next week, motivated to continue medical recommendations and treatment. She denies suicidal or homicidal ideation, she denies visual and auditory hallucinations, she is oriented 3. Review of Systems Constitutional: DENIES: Diaphoretic episodes, Fatigue, Fever, Weight gain, Weight loss, Chills, Dizziness, Change in appetite, Night Sweats Endocrine: DENIES: Abnorml menstrual pattern, Heat/cold intolerance, Polydipsia , Polyuria, Polyphagia Eyes: DENIES: Blurred vision, Diplopia, Eye inflammation, Eye pain, Vision loss , Photosensitivity, Double Vision Ears, nose, mouth, throat: DENIES: Tinnitus, Hearing loss, Vertigo, Nasal discharge, Oral lesions, Throat pain, Hoarseness, Ear Pain, Running Nose, Epistaxis, Sinus Pain, Toothache, Odynophagia Respiratory: DENIES: Apneas, Cough, Snoring, Wheezing, Hemoptysis, Sputum production, Shortness of breath Cardiovascular: DENIES: Chest pain, Palpitations, Syncope, Dyspnea on Exertion , PND, Lower Extremity Edema, Orthopnea, Claudication Gastrointestinal: DENIES: Abdominal pain, Black stools, Bloody stools, Constipation, Diarrhea, Nausea, Vomiting, Difficulty Swallowing, Anorexia Musculoskeletal: DENIES: Joint pain, Muscle aches, Stiffness, Joint Swelling, Back pain, Neck pain Integumentary: DENIES: Abnormal pigmentation, Pruritus, Rash, Nail changes, Breast masses, Breast skin changes, Nipple discharge Hematologic/lymphatic: DENIES: Bruising, Lymphadenopathy Immunologic/allergic: DENIES: Eczema, Urticaria Neurologic: DENIES: Abnormal gait, Headache, Localized weakness, Paresthesias, Seizures, Speech Problems, Tremor, Poor Balance Psychiatric: DENIES: Anxiety, Confusion, Mood changes, Depression, Hallucinations, Agitation, Suicidal Ideation, Homicidal Ideation, Delusions Objective Alert: Yes [place]: Person, Place, Date Mood: Calm Affect: Euthymic Memory Intact: Immediate, Recent, Remote Hallucinations: Other (none) Delusions: No Delusion Type: Other (none) Suicidal: Ideation (she denies) Homicidal: Ideation (she denies) Insight/Judgement Good Labs Test 09/02/16 05:40 White Blood Count 4.5 TH/MM3 Red Blood Count 2.92 MIL/MM3 Hemoglobin 9.1 GM/DL Hematocrit 25.7 % Mean Corpuscular Volume 88.3 FL Mean Corpuscular Hemoglobin 31.1 PG Mean Corpuscular Hemoglobin 35.2 % Concent Red Cell Distribution Width 14.5 % Platelet Count 157 TH/MM3 Mean Platelet Volume 7.5 FL Neutrophils (%) (Auto) 59.3 % Lymphocytes (%) (Auto) 30.4 % Monocytes (%) (Auto) 7.1 % Eosinophils (%) (Auto) 2.6 % Basophils (%) (Auto) 0.6 % Neutrophils # (Auto) 2.7 TH/MM3 Lymphocytes # (Auto) 1.4 TH/MM3 Monocytes # (Auto) 0.3 TH/MM3 Eosinophils # (Auto) 0.1 TH/MM3 Basophils # (Auto) 0.0 TH/MM3 CBC Comment DIFF FINAL Differential Comment Prothrombin Time 11.7 SEC Prothromb Time International 1.1 RATIO Ratio Activated Partial 26.4 SEC Thromboplast Time Fibrinogen 154 mg/dL Date/Time Procedure Status Source Growth 08/30/16 12:31 Gram Stain - Final Complete Wound Thigh 08/30/16 12:31 Wound Culture - Final Complete Pseudomonas Aeruginosa 08/30/16 12:31 Fungal Smear - Final Resulted Wound Thigh NO FUNGAL ELEMENTS SEEN. 08/30/16 12:31 Fungal Culture Resulted Wound Thigh Pending 08/30/16 12:31 Acid Fast Stain - Final Resulted Wound Thigh NO ACID FAST BACILLI SEEN 08/30/16 12:31 Mycobacterial Culture Resulted Wound Thigh Pending Vitals/IOs Vital Signs Date Time Temp Pulse Resp B/P Pulse Ox O2 Delivery O2 Flow Rate FiO2 09/02/16 12:00 97.5 80 16 107/75 98 08/30/16 13:40 Room Air 08/30/16 12:51 2 Intake and Output 09/01/16 09/01/16 09/02/16 08:00 16:00 00:00 Intake Total 240 ml 480 ml 580 ml Output Total 550 ml 300 ml Balance -310 ml 180 ml 580 ml Assessment & Plan Problem List: (1) Polysubstance dependence Assessment & Plan: On reevaluation today the patient does not present any acute psychiatric symptoms that requires an immediate psychiatric intervention. Patient denies depression, anxiety, tony and psychosis. Patient is oriented 3, logical, coherent. She denies suicidal, homicidal ideation, she denies visual and auditory hallucinations. Symptomatology of depression reported by the patient couple days ago was most probably secondary to adjustment due to hospitalization and medical problems. However, brief supportive psychotherapy, motivation and psycho education was provided. Psychiatric is signing off, please reconsult if needed. ICD Code: F19.20 Assessment & Plan Estimated LOS: days Justification for Cont. Inpt. No psychiatric hospitalization needed Tay Alejandro MD Sep 02, 2016 14:33
[2016-09-02 16:00] VITALS: BP 120/82; PULSE 89; RESP 17; TEMP 98.2; O2SAT 98
[2016-09-02 20:00] VITALS: BP 112/79; PULSE 82; RESP 20; TEMP 98.3; O2SAT 95
--- NOTE | 2016-09-02 22:05 | HHI.PR ---
Addendum to Inpatient Note Additional Information wound R thigh seen yaday Granulation, + large amount of thin serous odorless drainage started on fluconazol after multiple clx cack with C.albicans today cl with PSAE - add Kimi Gil MD Sep 02, 2016 22:05
[2016-09-03] VITALS: BP 119/82; PULSE 80; RESP 19; TEMP 96.4; O2SAT 99
[2016-09-03 04:10] LABS: AUTOMATED NEUTROPHIL # 1.9 TH/MM3 (1.8-7.7); BASOPHIL % 0.7 % (0.0-2.0); EOSINOPHIL # 0.2 TH/MM3 (0-0.4); EOSINOPHIL % 4.6 % (0.0-4.0); HEMATOCRIT 25.3 % (35.0-46.0); HEMO FLAGS DIFF FINAL; LYMPH % 37.8 % (9.0-44.0); LYMPHOCYTE # 1.4 TH/MM3 (1.0-4.8); MEAN CELL VOLUME 87.6 FL (80.0-100.0); MEAN CORPUSCULAR HEMOGLOBIN 30.5 PG (27.0-34.0); MEAN CORPUSCULAR HGB CONC 34.8 % (32.0-36.0); MONO % 7.2 % (0.0-8.0); NEUT % 49.7 % (16.0-70.0); PLATELET COUNT 164 TH/MM3 (150-450); RED BLOOD COUNT 2.89 MIL/MM3 (4.00-5.30); RED CELL DISTRIBUTION WIDTH 14.6 % (11.6-17.2); WHITE BLOOD COUNT 3.8 TH/MM3 (4.0-11.0)
[2016-09-03 04:25] LABS: APTT (PATIENT) 28.2 SEC (24.3-30.1); INTERNATIONAL NORMALIZED RATIO 1.1 RATIO; PROTHROMBIN TIME - PATIENT 12.1 SEC (9.8-11.6)
[2016-09-03 08:00] VITALS: BP 125/81; PULSE 79; RESP 18; TEMP 98.4; O2SAT 98
--- NOTE | 2016-09-03 08:00 | PD.ONC.PN ---
Subjective Subjective Remarks Tmax 100F overnight. Patient resting comfortably. She has some discomfort in her leg, at the site of her wound, but is otherwise without complaint. Objective Data Date Time Temp Pulse Resp B/P Pulse Ox O2 Delivery O2 Flow Rate FiO2 09/03/16 00:00 96.4 80 19 119/82 99 09/02/16 20:00 98.3 82 20 112/79 95 09/02/16 16:00 98.2 89 17 120/82 98 09/02/16 15:00 18 09/02/16 12:00 97.5 80 16 107/75 98 09/02/16 08:00 100.0 98 16 126/86 96 09/03/16 09/03/16 09/03/16 07:00 15:00 23:00 Intake Total 240 ml Balance 240 ml Result Diagram: 09/03/16 0031 08/31/16 0504 Laboratory Results Laboratory Tests Test 09/03/16 00:31 White Blood Count 3.8 TH/MM3 Red Blood Count 2.89 MIL/MM3 Hemoglobin 8.8 GM/DL Hematocrit 25.3 % Mean Corpuscular Volume 87.6 FL Mean Corpuscular Hemoglobin 30.5 PG Mean Corpuscular Hemoglobin 34.8 % Concent Red Cell Distribution Width 14.6 % Platelet Count 164 TH/MM3 Mean Platelet Volume 7.7 FL Neutrophils (%) (Auto) 49.7 % Lymphocytes (%) (Auto) 37.8 % Monocytes (%) (Auto) 7.2 % Eosinophils (%) (Auto) 4.6 % Basophils (%) (Auto) 0.7 % Neutrophils # (Auto) 1.9 TH/MM3 Lymphocytes # (Auto) 1.4 TH/MM3 Monocytes # (Auto) 0.3 TH/MM3 Eosinophils # (Auto) 0.2 TH/MM3 Basophils # (Auto) 0.0 TH/MM3 CBC Comment DIFF FINAL Differential Comment Prothrombin Time 12.1 SEC Prothromb Time International 1.1 RATIO Ratio Activated Partial 28.2 SEC Thromboplast Time Fibrinogen 153 mg/dL Administered Medications Medications (Trade) Dose Ordered Sig/Sara Route PRN Reason Start Time Stop Time Status Last Admin Dose Admin Aspirin (Ecotrin Ec) 325 mg DAILY PO 07/26/16 09:00 09/02/16 08:43 Morphine Sulfate (Morphine Inj) 4 mg Q2H PRN IV breaktgrough PAIN 07/25/16 23:45 08/23/16 14:30 Multivitamins (Theragran) 1 tab DAILY PO 07/26/16 09:00 09/02/16 08:43 Folic Acid (Folate) 1 mg DAILY PO 07/26/16 09:00 09/02/16 08:42 Ondansetron HCl (Zofran Inj) 4 mg Q6H PRN IV NAUSEA OR VOMITING 07/26/16 08:00 07/29/16 04:18 Rifaximin (Xifaxan) 550 mg BID PO 07/26/16 10:00 09/02/16 21:08 Hydralazine HCl (Apresoline Inj) 10 mg Q1HR PRN IV PUSH SBP>160, DBP>90 07/28/16 09:30 08/01/16 09:30 Famotidine (Pepcid) 10 mg BID PO 07/29/16 09:00 09/02/16 21:07 Oxycodone HCl (Roxicodone) 5 mg Q6H PRN PO PAIN SCALE 1 TO 10 07/29/16 09:00 09/03/16 02:48 Lactulose (Lactulose Liq) 30 ml BID PO 07/30/16 21:00 09/02/16 21:07 Heparin Sodium (Porcine) (Heparin Inj) UNSCH PRN IVF SEE PROTOCOL 07/30/16 16:15 08/11/16 11:35 Clonidine (Catapres) 0.1 mg Q12HR PO 08/02/16 11:00 09/02/16 21:08 Thiamine HCl (Vitamin B1) 100 mg DAILY PO 08/02/16 11:00 09/02/16 08:43 Benzonatate (Tessalon) 100 mg TID PRN PO cough 08/13/16 19:30 08/13/16 20:26 Metoprolol Tartrate (Lopressor) 12.5 mg Q8HR PRN PO tachycardia 08/15/16 15:00 08/15/16 15:50 Ferrous Sulfate (Ferrous Sulfate) 325 mg BID@ PO 08/18/16 17:00 09/02/16 16:42 Fluconazole (Diflucan) 200 mg DAILY PO 08/31/16 13:00 09/02/16 08:43 Amlodipine Besylate (Norvasc) 5 mg DAILY PO 09/02/16 09:00 09/02/16 08:43 Objective Remarks GENERAL: Young woman, lying in bed in nad. SKIN: Warm and dry. bandages in place, right thigh HEAD: Normocephalic. EYES: No injection or drainage. NECK: Supple, trachea midline. CARDIOVASCULAR: +S1/S2 RESPIRATORY: Breath sounds equal bilaterally. No accessory muscle use. GASTROINTESTINAL: Abdomen soft, non-tender, nondistended. EXTREMITIES: No cyanosis MUSCULOSKELETAL: Adequate muscle tone. NEUROLOGICAL: awake and alert, normal speech. Assessment/Plan Problem List: (1) Pancytopenia Status: Acute Plan: 09/03/16: counts stable. 09/02/15: monitor CBC. counts stable fibrinogen trended upward. 09/01/2016 Labs showed DIC with hypofibrinogenemia, blood counts trended slightly lower. No active bleeding noted. No significant symptoms. Not able to interpret iron study due to recent PRBC transfusion. History: --multifactorial due to recent sepsis, liver failure. --has had multiple surgeries to debride the right thigh wound. likely has a consumptive process like DIC + blood loss from multiple surgeries on the wound. --has not had menstrual period during this hospital stay. --doubt primary bone marrow disorder. Assessment 30y/o female admitted with compartment syndrome, now s/p fasciotomy with chronic open wound. Hematology consulted for pancytopenia. h/o Recent sepsis with urinary tract infection and pneumonia. completed a course of antibiotic, no evidence of infection at this time. h/o Recent liver failure which has resolved. h/o Acute renal failure which has improved. Plan 1. monitor CBC 2. supportive care. Attending Statement The exam, history, and the medical decision-making described in the above note were completed with the assistance of the mid-level provider. I reviewed and agree with the findings presented. I attest that I had a [id number] encounter with the patient on the same day, and personally performed and documented my assessment and findings in the medical record. No bleeding reported. Blood counts are stable, still has low grade DIC. Continue to monitor CBC. Transfusion prn. Check coags and fibrinogen if any sign of bleeding. Jeanna Lobo Sep 03, 2016 07:59 Stu Felix MD Sep 03, 2016 16:14
--- NOTE | 2016-09-03 08:11 | HHI.PR ---
Subjective Remarks patient in very good spirits no pain complains no diarrhea, no urinary symptoms Objective Vitals Vital Signs Date Time Temp Pulse Resp B/P Pulse Ox O2 Delivery O2 Flow Rate FiO2 09/03/16 00:00 96.4 80 19 119/82 99 09/02/16 20:00 98.3 82 20 112/79 95 09/02/16 16:00 98.2 89 17 120/82 98 09/02/16 15:00 18 09/02/16 12:00 97.5 80 16 107/75 98 I/O 09/02/16 09/02/16 09/02/16 09/03/16 09/03/16 09/03/16 07:00 15:00 23:00 07:00 15:00 23:00 Intake Total 340 ml 360 ml 240 ml 240 ml Balance 340 ml 360 ml 240 ml 240 ml Intake Oral 340 ml 360 ml 240 ml 240 ml IV Total 0 ml # Voids 2 2 2 2 # Bowel Movements 1 1 0 1 Result Diagram: 09/03/16 0031 08/31/16 0504 Imaging Last Impressions Liver Biopsy CT 08/13/16 0000 Signed Impressions: Service Date/Time: Saturday, August 13, 2016 12:42 - CONCLUSION: Uncomplicated CT guided biopsy. Raymundo Agarwal MD Chest X-Ray 08/09/16 0000 Signed Impressions: Service Date/Time: Tuesday, August 09, 2016 19:30 - CONCLUSION: 1. Interval placement of double-lumen central venous line. 2. Hazy opacity at the lung bases with mild blunting of the left costophrenic angle which could indicate a small effusion. Nael Zuñiga MD Catheter Placement X-Ray 07/30/16 0000 Signed Impressions: Service Date/Time: Saturday, July 30, 2016 14:14 - CONCLUSION: Uncomplicated line placement as above. Judson Cee MD Brain MRI 07/29/16 0000 Signed Impressions: Service Date/Time: July 13:34 - CONCLUSION: 1. Abnormal examination of the brain demonstrating areas of T2 signal and abnormal diffusion signal involving the globus pallidus bilaterally and the mesial temporal lobes bilaterally. Primary considerations would include carbon monoxide poisoning versus other partial anoxic brain injury. Please see above discussion. Aamir Narayanan MD Abdomen Ultrasound 07/26/16 0000 Signed Impressions: Service Date/Time: Tuesday, July 26, 2016 10:21 - CONCLUSION: 1. Small amount of free fluid adjacent to the lower poles of both kidneys. 2. Obscuration of the head of the pancreas, distal IVC and aorta due to overlying bowel gas. 3. Otherwise negative. Judson Cee MD Lower Extremity CT 07/25/16 0000 Signed Impressions: Service Date/Time: Monday, July 25, 2016 18:54 - CONCLUSION: Extensive nonspecific myositis of the right thigh, also involves gluteus medius and minimus proximally and at least medial gastrocnemius below the knee. Infectious/inflammatory and ischemic etiologies would be in the differential. No gas bubbles are seen to substantiate necrotizing fasciitis. No organized/drainable abscess. Glenroy Sheffield MD Hip and Pelvis X-Ray 07/25/16 0000 Signed Impressions: Service Date/Time: Monday, July 25, 2016 16:52 - CONCLUSION: Intact pelvis and right hip. Nonspecific surrounding soft tissue swelling Glenroy Sheffield MD Head CT 07/25/16 0000 Signed Impressions: Service Date/Time: Monday, July 25, 2016 14:38 - CONCLUSION: Negative noncontrast head CT. Glenroy Sheffield MD Chest CT 07/25/16 0000 Signed Impressions: Service Date/Time: Monday, July 25, 2016 16:37 - CONCLUSION: Focal dense consolidation right middle lobe, nonspecific but most likely infectious or inflammatory. Also a 3 mm right basilar pulmonary nodule Followup noncontrast chest CT in a few months recommended to confirm resolution/stability. Glenroy Sheffield MD Abdomen/Pelvis CT 07/25/16 0000 Signed Impressions: Service Date/Time: Monday, July 25, 2016 16:37 - CONCLUSION: 1. Fatty liver and 21 mm right ovarian cyst. Otherwise, no acute abnormality seen within the abdomen or pelvis. 2. Swollen, heterogeneous right hip musculature, primarily gluteus medius and minimus, rectus femoris and vastus lateralis and the adductor muscles. This is nonspecific but suggests a subacute hematoma of these structures. Nothing organized/measurable. 3. Chronic L5 pars defects with grade 2 L5/S1 spondylolisthesis. Glenroy Sheffield MD Objective Remarks GENERAL: awake and alert, oriented x 3, speech clear, appears apathetic EYES: No scleral icterus. No injection or drainage. NECK: Supple, trachea midline. No JVD or lymphadenopathy. CARDIOVASCULAR: Regular rate and rhythm without murmurs, gallops, or rubs. RESPIRATORY: lungs clear GASTROINTESTINAL: Abdomen soft, non-tender, nondistended. Right thigh- lateral aspect - - good granulation tissue, edges clean, no necrotic tissue good peripheral pulses, no calves tenderness Procedures 08/24/2016 Washout of the right thigh removal of acellular matrix and placement of the wound VAC. 08/16/2016 Washout of the fasciotomy site with reattachment of acellular matrix and wound Vac. 08/06/2016 Washout of the fasciotomy site and placement of acellular matrix coverage with wound VAC placement. 07/26/2016 Pulse irrigation of the medial and lateral fasciotomy, closure of the medial wound, partial closure of the lateral wound and large wound Vac placement. 07/25/2016 Medial and lateral fasciotomy and compartment release of the thigh with right gluteal area. A/P Problem List: (1) Compartment syndrome of right lower extremity ICD Code: T79.A21A Status: Resolved (2) Rhabdomyolysis ICD Code: M62.82 Status: Resolved (3) Drug overdose ICD Code: T50.901A Status: Resolved (4) Acute kidney failure ICD Code: N17.9 Status: Resolved (5) Small right middle lobe consolidation Status: Resolved (6) Hip hematoma, right ICD Code: S70.01XA Status: Resolved (7) Leukopenia ICD Code: D72.819 Status: Acute (8) Anemia ICD Code: D64.9 Status: Acute Assessment and Plan Ms. Sahu is a 30 year old female who was admitted to the hospital on 2015 to the ICU due to drug overdose, right sided numbness, hyperkalemia, CARLITO, hypotension, liver enzyme elevation, troponin elevation. Cardiology was contacted on the day of admission, STEMI was not suspected by cardiology. Patient admitted to using cocaine night prior to this admission. She also uses heroine. Patient right thigh was noted to be swollen with severe tenderness. Subsequently, patient underwent fasciotomy for compartment syndrome. Wound vac was placed. Patient underwent several surgical intervention by Dr. Turner with regards to her right thigh. Patient also required hemodialysis with regards to her CARLITO. Due to improvement of her renal function, hemodialysis has been discontinued. - Right thigh compartment syndrome - Status post right fasciotomy and wound VAC placement by Dr. Turner - off VAC - Wound - culture- fasciotomy site- with Indigo, PSAE - started on Diflucan 08/31 - Plastic surgery on board for possible skin graft. - Continue oxycodone, morphine when necessary for pain - s/p Washout of the right thigh removal of acellular matrix and placement of the wound VAC on 08/24/2016. - 08/28 evaluated by plastic surgery today. - S/P right thigh debridement by plastic - 08/31 - Possible Split thickness skin graft 4-5 days. -on Diflucan started 08/31- Indigo on culture - started Levaquin 09/02- with PSAE on wound - S/P Severe sepsis - S/P Escherichia coli urinary tract infection - Currently resolved. Infectious disease following along with us - s/p Vanc, zosyn and later Daptomycin and Levaquin. - -Pancytopenia due to sepsis, DIC. liver failure- Macrocytic anemia - Thrombocytopenia - Symptomatic anemia - Transfused total 4 units PRBCs, 2 pack platelets, 2 FFP 2 cryo-since admission - H and H stable - Sp transfusion of 1 unit PRBC on 08/27 hb 7.8 ----> 9.5. - 08/31/16 patient would likely acute postop anemia, the patient's hemoglobin dropped from 9.2-8 continue to monitor hemoglobin and transfuse if less than 7 or patient symptomatic. - Dr. Felix consulted and will be ff along with us - S/P Acute kidney injury secondary to Rhabdom and ATN - patient with good urine output, creatinine stabilizing- non oliguric - Acute rhabdomyolysis. CPK [id number] on 07/25/2016 ==> 118 on 08/07/2016. - Nephrology following. - Vas-Cath removed. Patient is off HD -Depression- Psychiatry ff - Polysubstance abuse including cocaine/heroine - Use PRN Ativan for anxiety and oxycodone/morphine as needed for pain. - CT of the head 07/25 revealed no acute intracranial findings. Continue aspirin, thiamine and multivitamins. - MRI brain 07/29 revealed T2 signal abnormality globus pallidus and mesial temporal lobe bilaterally. - EEG 07/30 revealed slowing system with moderate diffuse encephalopathy. No seizure activity. - Psychiatry lifted Os[place] act 07/29/2016 - neurology evaluated the patient and feels that MRI results are from drug overdose. - Ophthalmology exam negative for Bre-Sylvia rings. - Mild Respiratory insufficiency secondary to pneumonia/metabolic acidosis - Small consolidation right middle lobe - Right basilar pulmonary nodule 3 mm - follow-up CT chest 3 months recommended - Tobacco abuse. - now on room air,cough has resolved, continue incentive spirometry, duo nebs. - CT chest 07/25/2016 revealed right middle lobe infiltrate along with 3 mm right basilar pulmonary nodule. - Chest x-ray 07/26/2016 reveals no significant cardio pulmonary findings - Sinus tachycardia - NSTEMI - likely due to cocaine abuse - Hypertension - on Lopressor prn. Amlodipine to 5 mg po daily - Clonidine PRN. monitor and adjust - Transaminitis - resolved. - Hyperammonemia - likely due to rhabdomyolysis, hypotension. - CT of the abdomen and pelvis shows fatty liver/21 mm right ovarian cyst - Negative hepatitis panel - Xifaxan 550 twice a day/lactulose 30mg 3 times a day for elevated ammonia. - S/P liver biopsy 08/13/16 - showed minimal steatosis. Patient up and ambulating around Full code. up and ambulating Problem Qualifiers (1) Drug overdose: Qualified Code: T50.904A - Drug overdose, undetermined intent, initial encounter (2) Acute kidney failure: Qualified Code: N17.9 - Acute renal failure, unspecified acute renal failure type (3) Anemia: Rocky Tyler MD Sep 03, 2016 08:11 Rocky Tyler MD Sep 03, 2016 08:11
[2016-09-03] MEDS: FLUCONAZOLE 200 MG TAB PO SCH (08:49)
[2016-09-03] MEDS: LACTULOSE SYRUP 20 GM/30 ML CUP PO SCH ×2 (08:49→19:46)
[2016-09-03] MEDS: FOLIC ACID 1 MG TAB PO SCH (08:49)
[2016-09-03] MEDS: amLODIPine BESYLATE 5 MG TAB PO SCH (08:50)
[2016-09-03] MEDS: LEVOFLOXACIN 750 MG TAB PO SCH (08:50)
[2016-09-03] MEDS: THIAMINE HCL 100 MG TAB PO SCH (08:50)
[2016-09-03] MEDS: MULTIVITAMIN TAB PO SCH (08:50)
[2016-09-03] MEDS: ASPIRIN EC 325 MG TABEC PO SCH (08:50)
[2016-09-03] MEDS: cloNIDine HCL 0.1 MG TAB PO SCH ×2 (08:50→19:46)
[2016-09-03] MEDS: RIFAXIMIN 550 MG TAB PO SCH ×2 (08:50→19:47)
[2016-09-03] MEDS: FAMOTIDINE 20 MG TAB PO SCH ×2 (08:50→19:46)
[2016-09-03] MEDS: FERROUS SULFATE 325 MG (65 MG ELEMENTAL IRON) TAB PO SCH ×2 (11:16→14:35)
[2016-09-03 12:00] VITALS: BP 121/78; PULSE 81; RESP 20; TEMP 98.2; O2SAT 96
[2016-09-03 16:00] VITALS: BP 102/63; PULSE 93; RESP 20; TEMP 98.6; O2SAT 99
[2016-09-03 20:00] VITALS: BP 103/66; PULSE 103; RESP 20; TEMP 99.9; O2SAT 99
--- NOTE | 2016-09-03 21:34 | HHI.IDPN ---
Subjective Subjective Remarks pt has no new co tolearates abx OK Antibiotics levaquin fluconazole Allergies: Coded Allergies: No Known Allergies (Unverified , 12/10/14) Objective . Vital Signs Date Time Temp Pulse Resp B/P Pulse Ox O2 Delivery O2 Flow Rate FiO2 09/03/16 16:00 98.6 93 20 102/63 99 09/03/16 15:33 20 09/03/16 12:00 98.2 81 20 121/78 96 09/03/16 08:00 98.4 79 18 125/81 98 09/03/16 00:00 96.4 80 19 119/82 99 09/02/16 09/02/16 09/03/16 15:00 23:00 07:00 Intake Total 360 ml 240 ml 240 ml Balance 360 ml 240 ml 240 ml Intake Oral 360 ml 240 ml 240 ml # Voids 2 2 2 # Bowel Movements 1 0 1 . Laboratory Tests Test 09/02/16 09/03/16 05:40 00:31 White Blood Count 4.5 TH/MM3 3.8 TH/MM3 Red Blood Count 2.92 MIL/MM3 2.89 MIL/MM3 Hemoglobin 9.1 GM/DL 8.8 GM/DL Hematocrit 25.7 % 25.3 % Mean Corpuscular Volume 88.3 FL 87.6 FL Mean Corpuscular Hemoglobin 31.1 PG 30.5 PG Mean Corpuscular Hemoglobin 35.2 % 34.8 % Concent Red Cell Distribution Width 14.5 % 14.6 % Platelet Count 157 TH/MM3 164 TH/MM3 Mean Platelet Volume 7.5 FL 7.7 FL Neutrophils (%) (Auto) 59.3 % 49.7 % Lymphocytes (%) (Auto) 30.4 % 37.8 % Monocytes (%) (Auto) 7.1 % 7.2 % Eosinophils (%) (Auto) 2.6 % 4.6 % Basophils (%) (Auto) 0.6 % 0.7 % Neutrophils # (Auto) 2.7 TH/MM3 1.9 TH/MM3 Lymphocytes # (Auto) 1.4 TH/MM3 1.4 TH/MM3 Monocytes # (Auto) 0.3 TH/MM3 0.3 TH/MM3 Eosinophils # (Auto) 0.1 TH/MM3 0.2 TH/MM3 Basophils # (Auto) 0.0 TH/MM3 0.0 TH/MM3 CBC Comment DIFF FINAL DIFF FINAL Differential Comment Imaging Last Impressions Catheter Placement X-Ray 07/30/16 0000 Signed Impressions: Service Date/Time: Saturday, July 30, 2016 14:14 - CONCLUSION: Uncomplicated line placement as above. Judson Cee MD Brain MRI 07/29/16 0000 Signed Impressions: Service Date/Time: July 13:34 - CONCLUSION: 1. Abnormal examination of the brain demonstrating areas of T2 signal and abnormal diffusion signal involving the globus pallidus bilaterally and the mesial temporal lobes bilaterally. Primary considerations would include carbon monoxide poisoning versus other partial anoxic brain injury. Please see above discussion. Aamir Narayanan MD Chest X-Ray 07/27/16 0000 Signed Impressions: Service Date/Time: Wednesday, July 27, 2016 04:29 - CONCLUSION: Possible interval development of mild interstitial process possibly pulmonary edema and slight left lung base atelectasis. Kathy Berry MD Abdomen Ultrasound 07/26/16 0000 Signed Impressions: Service Date/Time: Tuesday, July 26, 2016 10:21 - CONCLUSION: 1. Small amount of free fluid adjacent to the lower poles of both kidneys. 2. Obscuration of the head of the pancreas, distal IVC and aorta due to overlying bowel gas. 3. Otherwise negative. Judson Cee MD Lower Extremity CT 07/25/16 0000 Signed Impressions: Service Date/Time: Monday, July 25, 2016 18:54 - CONCLUSION: Extensive nonspecific myositis of the right thigh, also involves gluteus medius and minimus proximally and at least medial gastrocnemius below the knee. Infectious/inflammatory and ischemic etiologies would be in the differential. No gas bubbles are seen to substantiate necrotizing fasciitis. No organized/drainable abscess. Glenroy Sheffield MD Hip and Pelvis X-Ray 07/25/16 0000 Signed Impressions: Service Date/Time: Monday, July 25, 2016 16:52 - CONCLUSION: Intact pelvis and right hip. Nonspecific surrounding soft tissue swelling Glenroy Sheffield MD Head CT 07/25/16 0000 Signed Impressions: Service Date/Time: Monday, July 25, 2016 14:38 - CONCLUSION: Negative noncontrast head CT. Glenroy Sheffield MD Chest CT 07/25/16 0000 Signed Impressions: Service Date/Time: Monday, July 25, 2016 16:37 - CONCLUSION: Focal dense consolidation right middle lobe, nonspecific but most likely infectious or inflammatory. Also a 3 mm right basilar pulmonary nodule Followup noncontrast chest CT in a few months recommended to confirm resolution/stability. Glenroy Sheffield MD Abdomen/Pelvis CT 07/25/16 0000 Signed Impressions: Service Date/Time: Monday, July 25, 2016 16:37 - CONCLUSION: 1. Fatty liver and 21 mm right ovarian cyst. Otherwise, no acute abnormality seen within the abdomen or pelvis. 2. Swollen, heterogeneous right hip musculature, primarily gluteus medius and minimus, rectus femoris and vastus lateralis and the adductor muscles. This is nonspecific but suggests a subacute hematoma of these structures. Nothing organized/measurable. 3. Chronic L5 pars defects with grade 2 L5/S1 spondylolisthesis. Glenroy Sheffield MD Physical Exam CONSTITUTIONAL/GENERAL: This is an adequately nourished patient, in no apparent distress. SKIN: No jaundice, rashes, or lesions. MUSCULOSKELETAL: R thigh wound looks really good, with small amount of odorless serous d/c and bright pink granulated bed Assessment & Plan Remarks R thigh myositis involving multiple muscel groups compartment sd sp fasciotomy Illicit drug OD Sepsis (lactic acidosis, leukocytosis) suspected vs other condition - blood clx negative : final UTI E.coli sp tx completed wound with superficial PSAE, candidal infx cont levaquine po x 7 days cont fluconazol x 7 days dw Kimi Araujo MD Sep 03, 2016 21:33
[2016-09-04] VITALS: BP_SYST 103; BP_SYST 108; BP_DIAS 66; BP_DIAS 74; PULSE 103; PULSE 77; RESP 19; RESP 20; TEMP 98.3; TEMP 99.9; O2SAT 100; O2SAT 99
[2016-09-04 08:00] VITALS: BP 112/76; PULSE 73; RESP 16; TEMP 97.7; O2SAT 99
[2016-09-04] MEDS: LACTULOSE SYRUP 20 GM/30 ML CUP PO SCH ×2 (08:46→20:51)
[2016-09-04] MEDS: LEVOFLOXACIN 750 MG TAB PO SCH (08:47)
[2016-09-04] MEDS: RIFAXIMIN 550 MG TAB PO SCH ×2 (08:47→20:51)
[2016-09-04] MEDS: FLUCONAZOLE 200 MG TAB PO SCH (08:47)
[2016-09-04] MEDS: FOLIC ACID 1 MG TAB PO SCH (08:47)
[2016-09-04] MEDS: ASPIRIN EC 325 MG TABEC PO SCH (08:48)
[2016-09-04] MEDS: MULTIVITAMIN TAB PO SCH (08:48)
[2016-09-04] MEDS: THIAMINE HCL 100 MG TAB PO SCH (08:48)
[2016-09-04] MEDS: FAMOTIDINE 20 MG TAB PO SCH ×2 (08:48→20:51)
[2016-09-04] MEDS: cloNIDine HCL 0.1 MG TAB PO SCH ×2 (08:53→20:51)
[2016-09-04] MEDS: amLODIPine BESYLATE 5 MG TAB PO SCH (08:53)
[2016-09-04 12:00] VITALS: BP 115/74; PULSE 75; RESP 16; TEMP 97.5; O2SAT 95
[2016-09-04] MEDS: FERROUS SULFATE 325 MG (65 MG ELEMENTAL IRON) TAB PO SCH ×2 (12:00→17:00)
--- NOTE | 2016-09-04 13:00 | HHI.PR ---
Subjective Remarks no complains no diarrhea Objective Vitals Vital Signs Date Time Temp Pulse Resp B/P Pulse Ox O2 Delivery O2 Flow Rate FiO2 09/04/16 12:00 97.5 75 16 115/74 95 09/04/16 08:00 97.7 73 16 112/76 99 09/04/16 00:00 98.3 77 19 108/74 100 09/03/16 20:00 99.9 103 20 103/66 99 09/03/16 16:00 98.6 93 20 102/63 99 09/03/16 15:33 20 I/O 09/03/16 09/03/16 09/03/16 09/04/16 09/04/16 09/04/16 07:00 15:00 23:00 07:00 15:00 23:00 Intake Total 240 ml 800 ml 240 ml 360 ml Output Total 600 ml Balance 240 ml 200 ml 240 ml 360 ml Intake Oral 240 ml 800 ml 240 ml 360 ml IV Total 0 ml Output Urine Total 600 ml # Voids 2 2 2 # Bowel Movements 1 0 0 0 # Sanitary Pads 1 Pads 1 Pads Result Diagram: 09/03/16 0031 08/31/16 0504 Imaging Last Impressions Liver Biopsy CT 08/13/16 0000 Signed Impressions: Service Date/Time: Saturday, August 13, 2016 12:42 - CONCLUSION: Uncomplicated CT guided biopsy. Raymundo Agarwal MD Chest X-Ray 08/09/16 0000 Signed Impressions: Service Date/Time: Tuesday, August 09, 2016 19:30 - CONCLUSION: 1. Interval placement of double-lumen central venous line. 2. Hazy opacity at the lung bases with mild blunting of the left costophrenic angle which could indicate a small effusion. Nael Zuñiga MD Catheter Placement X-Ray 07/30/16 0000 Signed Impressions: Service Date/Time: Saturday, July 30, 2016 14:14 - CONCLUSION: Uncomplicated line placement as above. Judson Cee MD Brain MRI 07/29/16 0000 Signed Impressions: Service Date/Time: July 13:34 - CONCLUSION: 1. Abnormal examination of the brain demonstrating areas of T2 signal and abnormal diffusion signal involving the globus pallidus bilaterally and the mesial temporal lobes bilaterally. Primary considerations would include carbon monoxide poisoning versus other partial anoxic brain injury. Please see above discussion. Aamir Narayanan MD Abdomen Ultrasound 07/26/16 0000 Signed Impressions: Service Date/Time: Tuesday, July 26, 2016 10:21 - CONCLUSION: 1. Small amount of free fluid adjacent to the lower poles of both kidneys. 2. Obscuration of the head of the pancreas, distal IVC and aorta due to overlying bowel gas. 3. Otherwise negative. Judson Cee MD Lower Extremity CT 07/25/16 0000 Signed Impressions: Service Date/Time: Monday, July 25, 2016 18:54 - CONCLUSION: Extensive nonspecific myositis of the right thigh, also involves gluteus medius and minimus proximally and at least medial gastrocnemius below the knee. Infectious/inflammatory and ischemic etiologies would be in the differential. No gas bubbles are seen to substantiate necrotizing fasciitis. No organized/drainable abscess. Glenroy Sheffield MD Hip and Pelvis X-Ray 07/25/16 Signed Impressions: Service Date/Time: Monday, July 25, 2016 16:52 - CONCLUSION: Intact pelvis and right hip. Nonspecific surrounding soft tissue swelling Glenroy Sheffield MD Head CT 07/25/16 0000 Signed Impressions: Service Date/Time: Monday, July 25, 2016 14:38 - CONCLUSION: Negative noncontrast head CT. Glenroy Sheffield MD Chest CT 07/25/16 0000 Signed Impressions: Service Date/Time: Monday, July 25, 2016 16:37 - CONCLUSION: Focal dense consolidation right middle lobe, nonspecific but most likely infectious or inflammatory. Also a 3 mm right basilar pulmonary nodule Followup noncontrast chest CT in a few months recommended to confirm resolution/stability. Glenroy Sheffield MD Abdomen/Pelvis CT 07/25/16 0000 Signed Impressions: Service Date/Time: Monday, July 25, 2016 16:37 - CONCLUSION: 1. Fatty liver and 21 mm right ovarian cyst. Otherwise, no acute abnormality seen within the abdomen or pelvis. 2. Swollen, heterogeneous right hip musculature, primarily gluteus medius and minimus, rectus femoris and vastus lateralis and the adductor muscles. This is nonspecific but suggests a subacute hematoma of these structures. Nothing organized/measurable. 3. Chronic L5 pars defects with grade 2 L5/S1 spondylolisthesis. Glenroy Shefifeld MD Objective Remarks GENERAL: awake and alert, oriented x 3, speech clear, appears apathetic EYES: No scleral icterus. No injection or drainage. NECK: Supple, trachea midline. No JVD or lymphadenopathy. CARDIOVASCULAR: Regular rate and rhythm without murmurs, gallops, or rubs. RESPIRATORY: lungs clear GASTROINTESTINAL: Abdomen soft, non-tender, nondistended. Right thigh- lateral aspect - -dressing intact- good granulation tissue, edges clean, no necrotic tissue good peripheral pulses, no calves tenderness Procedures 08/24/2016 Washout of the right thigh removal of acellular matrix and placement of the wound VAC. 08/16/2016 Washout of the fasciotomy site with reattachment of acellular matrix and wound Vac. 08/06/2016 Washout of the fasciotomy site and placement of acellular matrix coverage with wound VAC placement. 07/26/2016 Pulse irrigation of the medial and lateral fasciotomy, closure of the medial wound, partial closure of the lateral wound and large wound Vac placement. 07/25/2016 Medial and lateral fasciotomy and compartment release of the thigh with right gluteal area. A/P Problem List: (1) Compartment syndrome of right lower extremity ICD Code: T79.A21A Status: Resolved (2) Rhabdomyolysis ICD Code: M62.82 Status: Resolved (3) Drug overdose ICD Code: T50.901A Status: Resolved (4) Acute kidney failure ICD Code: N17.9 Status: Resolved (5) Small right middle lobe consolidation Status: Resolved (6) Hip hematoma, right ICD Code: S70.01XA Status: Resolved (7) Leukopenia ICD Code: D72.819 Status: Acute (8) Anemia ICD Code: D64.9 Status: Acute Assessment and Plan Ms. Sahu is a 30 year old female who was admitted to the hospital on 2015 to the ICU due to drug overdose, right sided numbness, hyperkalemia, CARLITO, hypotension, liver enzyme elevation, troponin elevation. Cardiology was contacted on the day of admission, STEMI was not suspected by cardiology. Patient admitted to using cocaine night prior to this admission. She also uses heroine. Patient right thigh was noted to be swollen with severe tenderness. Subsequently, patient underwent fasciotomy for compartment syndrome. Wound vac was placed. Patient underwent several surgical intervention by Dr. Turner with regards to her right thigh. Patient also required hemodialysis with regards to her CARLITO. Due to improvement of her renal function, hemodialysis has been discontinued. - Right thigh compartment syndrome - Status post right fasciotomy and wound VAC placement by Dr. Turner - off VAC - Wound - culture- fasciotomy site- with Indigo, PSAE - Plastic surgery on board for possible skin graft. - Continue oxycodone, morphine when necessary for pain - s/p Washout of the right thigh removal of acellular matrix and placement of the wound VAC on 08/24/2016. - 08/28 evaluated by plastic surgery today. - S/P right thigh debridement by plastic - 08/31 - Possible Split thickness skin graft 4-5 days. -on Diflucan started 08/31- Indigo on culture - started Levaquin 09/02- with PSAE on wound - S/P Severe sepsis - S/P Escherichia coli urinary tract infection - Currently resolved. Infectious disease following along with us - s/p Vanc, zosyn and later Daptomycin and Levaquin. - -Pancytopenia due to sepsis, DIC. liver failure- Macrocytic anemia - Thrombocytopenia - Symptomatic anemia - Transfused total 4 units PRBCs, 2 pack platelets, 2 FFP 2 cryo-since admission - H and H stable - Sp transfusion of 1 unit PRBC on 08/27 hb 7.8 ----> 9.5. - 08/31/16 patient would likely acute postop anemia, the patient's hemoglobin dropped from 9.2-8 continue to monitor hemoglobin and transfuse if less than 7 or patient symptomatic. - Dr. Felix consulted and will be ff along with us - S/P Acute kidney injury secondary to Rhabdom and ATN - patient with good urine output, creatinine stabilizing- non oliguric - Acute rhabdomyolysis. CPK [id number] on 07/25/2016 ==> 118 on 08/07/2016. - Nephrology following. - Vas-Cath removed. Patient is off HD -Depression- Psychiatry ff - Polysubstance abuse including cocaine/heroine - Use PRN Ativan for anxiety and oxycodone/morphine as needed for pain. - CT of the head 07/25 revealed no acute intracranial findings. Continue aspirin, thiamine and multivitamins. - MRI brain 07/29 revealed T2 signal abnormality globus pallidus and mesial temporal lobe bilaterally. - EEG 07/30 revealed slowing system with moderate diffuse encephalopathy. No seizure activity. - Psychiatry lifted Osborn act 07/29/2016 - neurology evaluated the patient and feels that MRI results are from drug overdose. - Ophthalmology exam negative for Bre-Sylvia rings. - Mild Respiratory insufficiency secondary to pneumonia/metabolic acidosis - Small consolidation right middle lobe - Right basilar pulmonary nodule 3 mm - follow-up CT chest 3 months recommended - Tobacco abuse. - now on room air,cough has resolved, continue incentive spirometry, duo nebs. - CT chest 07/25/2016 revealed right middle lobe infiltrate along with 3 mm right basilar pulmonary nodule. - Chest x-ray 07/26/2016 reveals no significant cardio pulmonary findings - Sinus tachycardia- improved - NSTEMI - likely due to cocaine abuse - Hypertension - on Lopressor prn.-not getting it- will DC altogether Amlodipine decreased to 5 mg po daily- monitor - Clonidine PRN. monitor and adjust - Transaminitis - resolved. - Hyperammonemia - likely due to rhabdomyolysis, hypotension. - CT of the abdomen and pelvis shows fatty liver/21 mm right ovarian cyst - Negative hepatitis panel - Xifaxan 550 twice a day/lactulose 30mg 3 times a day for elevated ammonia. - S/P liver biopsy 08/13/16 - showed minimal steatosis. Patient up and ambulating around Full code. up and ambulating Problem Qualifiers (1) Drug overdose: Qualified Code: T50.904A - Drug overdose, undetermined intent, initial encounter (2) Acute kidney failure: Qualified Code: N17.9 - Acute renal failure, unspecified acute renal failure type (3) Anemia: Rocky Tyler MD Sep 04, 2016 13:00 Rocky Tyler MD Sep 04, 2016 13:00
[2016-09-04 16:00] VITALS: BP 113/80; PULSE 89; RESP 15; TEMP 98.9; O2SAT 99
[2016-09-04 20:00] VITALS: BP 116/85; PULSE 80; RESP 18; TEMP 98.8; O2SAT 99
[2016-09-05] VITALS: BP 123/87; PULSE 96; RESP 18; TEMP 96.7; O2SAT 100
[2016-09-05] MEDS: MORPHINE SULFATE 4 MG/ML INJ IV PRN (05:08)
[2016-09-05 08:00] VITALS: BP 118/80; PULSE 84; RESP 16; TEMP 98.6; O2SAT 97
[2016-09-05] MEDS: LACTULOSE SYRUP 20 GM/30 ML CUP PO SCH ×2 (09:02→20:55)
[2016-09-05] MEDS: FOLIC ACID 1 MG TAB PO SCH (09:02)
[2016-09-05] MEDS: LEVOFLOXACIN 750 MG TAB PO SCH (09:02)
[2016-09-05] MEDS: RIFAXIMIN 550 MG TAB PO SCH ×2 (09:02→20:55)
[2016-09-05] MEDS: THIAMINE HCL 100 MG TAB PO SCH (09:02)
[2016-09-05] MEDS: MULTIVITAMIN TAB PO SCH (09:02)
[2016-09-05] MEDS: amLODIPine BESYLATE 5 MG TAB PO SCH (09:02)
[2016-09-05] MEDS: FLUCONAZOLE 200 MG TAB PO SCH (09:02)
[2016-09-05] MEDS: cloNIDine HCL 0.1 MG TAB PO SCH (09:03)
[2016-09-05] MEDS: FAMOTIDINE 20 MG TAB PO SCH ×2 (09:03→20:55)
[2016-09-05] MEDS: ASPIRIN EC 325 MG TABEC PO SCH (09:03)
--- NOTE | 2016-09-05 10:52 | HHI.PR ---
Subjective Remarks no complains looking forward to graft surgery Objective Vitals Vital Signs Date Time Temp Pulse Resp B/P Pulse Ox O2 Delivery O2 Flow Rate FiO2 09/05/16 08:00 98.6 84 16 118/80 97 09/05/16 05:33 16 09/05/16 00:00 96.7 96 18 123/87 100 09/04/16 22:27 18 09/04/16 20:00 98.8 80 18 116/85 99 09/04/16 16:00 98.9 89 15 113/80 99 09/04/16 12:00 97.5 75 16 115/74 95 I/O 09/04/16 09/04/16 09/04/16 09/05/16 09/05/16 09/05/16 07:00 15:00 23:00 07:00 15:00 23:00 Intake Total 360 ml 500 ml 320 ml 240 ml Balance 360 ml 500 ml 320 ml 240 ml Intake Oral 360 ml 500 ml 320 ml 240 ml IV Total 0 ml 0 ml 0 ml # Voids 2 3 1 3 # Bowel Movements 0 0 0 0 Result Diagram: 09/03/16 0031 Imaging Last Impressions Liver Biopsy CT 08/13/16 0000 Signed Impressions: Service Date/Time: Saturday, August 13, 2016 12:42 - CONCLUSION: Uncomplicated CT guided biopsy. Raymundo Agarwal MD Chest X-Ray 08/09/16 0000 Signed Impressions: Service Date/Time: Tuesday, August 09, 2016 19:30 - CONCLUSION: 1. Interval placement of double-lumen central venous line. 2. Hazy opacity at the lung bases with mild blunting of the left costophrenic angle which could indicate a small effusion. Nael Zuñiga MD Catheter Placement X-Ray 07/30/16 0000 Signed Impressions: Service Date/Time: Saturday, July 30, 2016 14:14 - CONCLUSION: Uncomplicated line placement as above. Judson Cee MD Brain MRI 07/29/16 0000 Signed Impressions: Service Date/Time: July 13:34 - CONCLUSION: 1. Abnormal examination of the brain demonstrating areas of T2 signal and abnormal diffusion signal involving the globus pallidus bilaterally and the mesial temporal lobes bilaterally. Primary considerations would include carbon monoxide poisoning versus other partial anoxic brain injury. Please see above discussion. Aamir Narayanan MD Abdomen Ultrasound 07/26/16 Signed Impressions: Service Date/Time: Tuesday, July 26, 2016 10:21 - CONCLUSION: 1. Small amount of free fluid adjacent to the lower poles of both kidneys. 2. Obscuration of the head of the pancreas, distal IVC and aorta due to overlying bowel gas. 3. Otherwise negative. Judson Cee MD Lower Extremity CT 07/25/16 Signed Impressions: Service Date/Time: Monday, July 25, 2016 18:54 - CONCLUSION: Extensive nonspecific myositis of the right thigh, also involves gluteus medius and minimus proximally and at least medial gastrocnemius below the knee. Infectious/inflammatory and ischemic etiologies would be in the differential. No gas bubbles are seen to substantiate necrotizing fasciitis. No organized/drainable abscess. Glenroy Sheffield MD Hip and Pelvis X-Ray 07/25/16 Signed Impressions: Service Date/Time: Monday, July 25, 2016 16:52 - CONCLUSION: Intact pelvis and right hip. Nonspecific surrounding soft tissue swelling Glenroy Sheffield MD Head CT 07/25/16 Signed Impressions: Service Date/Time: Monday, July 25, 2016 14:38 - CONCLUSION: Negative noncontrast head CT. Glenroy Sheffield MD Chest CT 07/25/16 Signed Impressions: Service Date/Time: Monday, July 25, 2016 16:37 - CONCLUSION: Focal dense consolidation right middle lobe, nonspecific but most likely infectious or inflammatory. Also a 3 mm right basilar pulmonary nodule Followup noncontrast chest CT in a few months recommended to confirm resolution/stability. Glenroy Sheffield MD Abdomen/Pelvis CT 07/25/16 Signed Impressions: Service Date/Time: Monday, July 25, 2016 16:37 - CONCLUSION: 1. Fatty liver and 21 mm right ovarian cyst. Otherwise, no acute abnormality seen within the abdomen or pelvis. 2. Swollen, heterogeneous right hip musculature, primarily gluteus medius and minimus, rectus femoris and vastus lateralis and the adductor muscles. This is nonspecific but suggests a subacute hematoma of these structures. Nothing organized/measurable. 3. Chronic L5 pars defects with grade 2 L5/S1 spondylolisthesis. Glenroy Sheffield MD Objective Remarks GENERAL: awake and alert, oriented x 3, speech clear, appears apathetic EYES: No scleral icterus. No injection or drainage. NECK: Supple, trachea midline. No JVD or lymphadenopathy. CARDIOVASCULAR: Regular rate and rhythm without murmurs, gallops, or rubs. RESPIRATORY: lungs clear GASTROINTESTINAL: Abdomen soft, non-tender, nondistended. Right thigh- lateral aspect - -dressing intact- good granulation tissue, edges clean, no necrotic tissue good peripheral pulses, no calves tenderness Procedures 08/24/2016 Washout of the right thigh removal of acellular matrix and placement of the wound VAC. 08/16/2016 Washout of the fasciotomy site with reattachment of acellular matrix and wound Vac. 08/06/2016 Washout of the fasciotomy site and placement of acellular matrix coverage with wound VAC placement. 07/26/2016 Pulse irrigation of the medial and lateral fasciotomy, closure of the medial wound, partial closure of the lateral wound and large wound Vac placement. 07/25/2016 Medial and lateral fasciotomy and compartment release of the thigh with right gluteal area. A/P Problem List: (1) Compartment syndrome of right lower extremity ICD Code: T79.A21A Status: Resolved (2) Rhabdomyolysis ICD Code: M62.82 Status: Resolved (3) Drug overdose ICD Code: T50.901A Status: Resolved (4) Acute kidney failure ICD Code: N17.9 Status: Resolved (5) Small right middle lobe consolidation Status: Resolved (6) Hip hematoma, right ICD Code: S70.01XA Status: Resolved (7) Leukopenia ICD Code: D72.819 Status: Acute (8) Anemia ICD Code: D64.9 Status: Acute Assessment and Plan Ms. Sahu is a 30 year old female who was admitted to the hospital on 2015 to the ICU due to drug overdose, right sided numbness, hyperkalemia, CARLITO, hypotension, liver enzyme elevation, troponin elevation. Cardiology was contacted on the day of admission, STEMI was not suspected by cardiology. Patient admitted to using cocaine night prior to this admission. She also uses heroine. Patient right thigh was noted to be swollen with severe tenderness. Subsequently, patient underwent fasciotomy for compartment syndrome. Wound vac was placed. Patient underwent several surgical intervention by Dr. Turner with regards to her right thigh. Patient also required hemodialysis with regards to her CARLITO. Due to improvement of her renal function, hemodialysis has been discontinued. - Right thigh compartment syndrome - Status post right fasciotomy and wound VAC placement by Dr. Turner - off VAC - Wound - culture- fasciotomy site- with Indigo, PSAE - Continue oxycodone, morphine when necessary for pain - s/p Washout of the right thigh removal of acellular matrix and placement of the wound VAC on 08/24/2016. - S/P right thigh debridement by plastic - 08/31 - Possible Split thickness skin graft this week- Dr. Guerra ff -on Diflucan started 08/31- Indigo on culture - started Levaquin 09/02- with PSAE on wound - S/P Severe sepsis - S/P Escherichia coli urinary tract infection - Currently resolved. Infectious disease following along with us - s/p Vanc, zosyn and later Daptomycin and Levaquin. - -Pancytopenia due to sepsis, DIC. liver failure- Macrocytic anemia - Thrombocytopenia - Symptomatic anemia - Transfused total 4 units PRBCs, 2 pack platelets, 2 FFP 2 cryo-since admission - H and H stable - Sp transfusion of 1 unit PRBC on 08/27 hb 7.8 ----> 9.5. - 08/31/16 patient would likely acute postop anemia, the patient's hemoglobin dropped from 9.2-8 continue to monitor hemoglobin and transfuse if less than 7 or patient symptomatic. - Dr. Felix consulted and will be ff along with us - S/P Acute kidney injury secondary to Rhabdom and ATN - patient with good urine output, creatinine stabilizing- non oliguric - Acute rhabdomyolysis. CPK [id number] on 07/25/2016 ==> 118 on 08/07/2016. - Nephrology following. - Vas-Cath removed. Patient is off HD -Depression- Psychiatry ff- very motivated and optimistic - Polysubstance abuse including cocaine/heroine - Use PRN Ativan for anxiety and oxycodone/morphine as needed for pain. - CT of the head 07/25 revealed no acute intracranial findings. Continue aspirin, thiamine and multivitamins. - MRI brain 07/29 revealed T2 signal abnormality globus pallidus and mesial temporal lobe bilaterally. - EEG 07/30 revealed slowing system with moderate diffuse encephalopathy. No seizure activity. - Psychiatry lifted Osborn act 07/29/2016 - neurology evaluated the patient and feels that MRI results are from drug overdose. - Ophthalmology exam negative for Bre-Sylvia rings. - Mild Respiratory insufficiency secondary to pneumonia/metabolic acidosis - Small consolidation right middle lobe - Right basilar pulmonary nodule 3 mm - follow-up CT chest 3 months recommended - Tobacco abuse. - now on room air,cough has resolved, continue incentive spirometry, duo nebs. - CT chest 07/25/2016 revealed right middle lobe infiltrate along with 3 mm right basilar pulmonary nodule. - Chest x-ray 07/26/2016 reveals no significant cardio pulmonary findings - Sinus tachycardia- improved - NSTEMI - likely due to cocaine abuse - Hypertension - on Lopressor prn.-not getting it- will DC altogether Amlodipine decreased to 2.5 mg po daily- monitor - Clonidine PRN. monitor and adjust - Transaminitis - resolved. - Hyperammonemia - likely due to rhabdomyolysis, hypotension. - CT of the abdomen and pelvis shows fatty liver/21 mm right ovarian cyst - Negative hepatitis panel - Xifaxan 550 twice a day/lactulose 30mg 3 times a day for elevated ammonia. - S/P liver biopsy 08/13/16 - showed minimal steatosis. Patient up and ambulating around Full code. up and ambulating Problem Qualifiers (1) Drug overdose: Qualified Code: T50.904A - Drug overdose, undetermined intent, initial encounter (2) Acute kidney failure: Qualified Code: N17.9 - Acute renal failure, unspecified acute renal failure type (3) Anemia: Rocky Tyler MD Sep 05, 2016 10:52
[2016-09-05 12:00] VITALS: BP 92/56; PULSE 73; RESP 18; TEMP 97.8; O2SAT 99
[2016-09-05] MEDS: FERROUS SULFATE 325 MG (65 MG ELEMENTAL IRON) TAB PO SCH ×2 (12:24→18:36)
[2016-09-05 16:00] VITALS: BP 103/62; PULSE 75; RESP 17; TEMP 97.3; O2SAT 100
[2016-09-05 20:00] VITALS: BP 104/72; PULSE 86; RESP 18; TEMP 98.7; O2SAT 98
[2016-09-06] VITALS: BP 111/76; PULSE 95; RESP 18; TEMP 97.9; O2SAT 98
[2016-09-06] MEDS ORDERED: LACTATED RINGER'S 1000 ML IV SCH (03:30)
[2016-09-06 03:55] VITALS: BP 115/77; PULSE 81; RESP 16; TEMP 97.7; O2SAT 97
[2016-09-06] MEDS: FLUCONAZOLE 200 MG TAB PO SCH (07:32)
[2016-09-06] MEDS: FAMOTIDINE 20 MG TAB PO SCH ×2 (07:32→21:47)
[2016-09-06] MEDS: LACTULOSE SYRUP 20 GM/30 ML CUP PO SCH ×2 (07:33→21:00)
[2016-09-06] MEDS: LEVOFLOXACIN 750 MG TAB PO SCH (07:33)
[2016-09-06] MEDS: ASPIRIN EC 325 MG TABEC PO SCH (07:33)
[2016-09-06] MEDS: THIAMINE HCL 100 MG TAB PO SCH (07:33)
[2016-09-06] MEDS: SODIUM CHLORIDE 0.9% FLUSH 5 ML FLUSH IVF PRN (07:33)
[2016-09-06] MEDS: FOLIC ACID 1 MG TAB PO SCH (07:33)
[2016-09-06] MEDS: RIFAXIMIN 550 MG TAB PO SCH ×2 (07:33→21:48)
[2016-09-06] MEDS: MULTIVITAMIN TAB PO SCH (07:33)
--- NOTE | 2016-09-06 07:46 | HHI.PR ---
Subjective Remarks no complains Objective Vitals Vital Signs Date Time Temp Pulse Resp B/P Pulse Ox O2 Delivery O2 Flow Rate FiO2 09/06/16 05:43 16 09/06/16 03:55 97.7 81 16 115/77 97 09/06/16 00:00 97.9 95 18 111/76 98 09/05/16 20:00 98.7 86 18 104/72 98 09/05/16 16:00 97.3 75 17 103/62 100 09/05/16 12:00 97.8 73 18 92/56 99 09/05/16 08:00 98.6 84 16 118/80 97 I/O 09/05/16 09/05/16 09/05/16 09/06/16 09/06/16 09/06/16 07:00 15:00 23:00 07:00 15:00 23:00 Intake Total 240 ml 600 ml 240 ml 240 ml Output Total 3 ml Balance 240 ml 597 ml 240 ml 240 ml Intake Oral 240 ml 600 ml 240 ml 240 ml IV Total 0 ml 0 ml 0 ml Output Urine Total 3 ml # Voids 3 2 3 # Bowel Movements 0 0 0 0 Result Diagram: 09/03/16 0031 Imaging Last Impressions Liver Biopsy CT 08/13/16 0000 Signed Impressions: Service Date/Time: Saturday, August 13, 2016 12:42 - CONCLUSION: Uncomplicated CT guided biopsy. Raymundo Agarwal MD Chest X-Ray 08/09/16 0000 Signed Impressions: Service Date/Time: Tuesday, August 09, 2016 19:30 - CONCLUSION: 1. Interval placement of double-lumen central venous line. 2. Hazy opacity at the lung bases with mild blunting of the left costophrenic angle which could indicate a small effusion. Nael Zuñiga MD Catheter Placement X-Ray 07/30/16 0000 Signed Impressions: Service Date/Time: Saturday, July 30, 2016 14:14 - CONCLUSION: Uncomplicated line placement as above. Judson Cee MD Brain MRI 07/29/16 0000 Signed Impressions: Service Date/Time: July 13:34 - CONCLUSION: 1. Abnormal examination of the brain demonstrating areas of T2 signal and abnormal diffusion signal involving the globus pallidus bilaterally and the mesial temporal lobes bilaterally. Primary considerations would include carbon monoxide poisoning versus other partial anoxic brain injury. Please see above discussion. Aamir Narayanan MD Abdomen Ultrasound 07/26/16 Signed Impressions: Service Date/Time: Tuesday, July 26, 2016 10:21 - CONCLUSION: 1. Small amount of free fluid adjacent to the lower poles of both kidneys. 2. Obscuration of the head of the pancreas, distal IVC and aorta due to overlying bowel gas. 3. Otherwise negative. Judson Cee MD Lower Extremity CT 07/25/16 Signed Impressions: Service Date/Time: Monday, July 25, 2016 18:54 - CONCLUSION: Extensive nonspecific myositis of the right thigh, also involves gluteus medius and minimus proximally and at least medial gastrocnemius below the knee. Infectious/inflammatory and ischemic etiologies would be in the differential. No gas bubbles are seen to substantiate necrotizing fasciitis. No organized/drainable abscess. Glenroy Sheffield MD Hip and Pelvis X-Ray 07/25/16 Signed Impressions: Service Date/Time: Monday, July 25, 2016 16:52 - CONCLUSION: Intact pelvis and right hip. Nonspecific surrounding soft tissue swelling Glenroy Sheffield MD Head CT 07/25/16 0000 Signed Impressions: Service Date/Time: Monday, July 25, 2016 14:38 - CONCLUSION: Negative noncontrast head CT. Glenroy Sheffield MD Chest CT 07/25/16 0000 Signed Impressions: Service Date/Time: Monday, July 25, 2016 16:37 - CONCLUSION: Focal dense consolidation right middle lobe, nonspecific but most likely infectious or inflammatory. Also a 3 mm right basilar pulmonary nodule Followup noncontrast chest CT in a few months recommended to confirm resolution/stability. Glenroy Sheffield MD Abdomen/Pelvis CT 07/25/16 0000 Signed Impressions: Service Date/Time: Monday, July 25, 2016 16:37 - CONCLUSION: 1. Fatty liver and 21 mm right ovarian cyst. Otherwise, no acute abnormality seen within the abdomen or pelvis. 2. Swollen, heterogeneous right hip musculature, primarily gluteus medius and minimus, rectus femoris and vastus lateralis and the adductor muscles. This is nonspecific but suggests a subacute hematoma of these structures. Nothing organized/measurable. 3. Chronic L5 pars defects with grade 2 L5/S1 spondylolisthesis. Glenroy Sheffield MD Objective Remarks GENERAL: awake and alert, oriented x 3, speech clear, more interactive this am and smiling EYES: No scleral icterus. No injection or drainage. NECK: Supple, trachea midline. No JVD or lymphadenopathy. CARDIOVASCULAR: Regular rate and rhythm without murmurs, gallops, or rubs. RESPIRATORY: lungs clear GASTROINTESTINAL: Abdomen soft, non-tender, nondistended. Right thigh- lateral aspect - extensive wound - good granulation tissue, edges clean, no necrotic tissue, no foul smell good peripheral pulses, no calves tenderness Procedures 08/24/2016 Washout of the right thigh removal of acellular matrix and placement of the wound VAC. 08/16/2016 Washout of the fasciotomy site with reattachment of acellular matrix and wound Vac. 08/06/2016 Washout of the fasciotomy site and placement of acellular matrix coverage with wound VAC placement. 07/26/2016 Pulse irrigation of the medial and lateral fasciotomy, closure of the medial wound, partial closure of the lateral wound and large wound Vac placement. 07/25/2016 Medial and lateral fasciotomy and compartment release of the thigh with right gluteal area. A/P Problem List: (1) Compartment syndrome of right lower extremity ICD Code: T79.A21A Status: Resolved (2) Rhabdomyolysis ICD Code: M62.82 Status: Resolved (3) Drug overdose ICD Code: T50.901A Status: Resolved (4) Acute kidney failure ICD Code: N17.9 Status: Resolved (5) Small right middle lobe consolidation Status: Resolved (6) Hip hematoma, right ICD Code: S70.01XA Status: Resolved (7) Leukopenia ICD Code: D72.819 Status: Acute (8) Anemia ICD Code: D64.9 Status: Acute Assessment and Plan Ms. Sahu is a 30 year old female who was admitted to the hospital on 2015 to the ICU due to drug overdose, right sided numbness, hyperkalemia, CARLITO, hypotension, liver enzyme elevation, troponin elevation. Cardiology was contacted on the day of admission, STEMI was not suspected by cardiology. Patient admitted to using cocaine night prior to this admission. She also uses heroine. Patient right thigh was noted to be swollen with severe tenderness. Subsequently, patient underwent fasciotomy for compartment syndrome. Wound vac was placed. Patient underwent several surgical intervention by Dr. Turner with regards to her right thigh. Patient also required hemodialysis with regards to her CARLITO. Due to improvement of her renal function, hemodialysis has been discontinued. - Right thigh compartment syndrome - Status post right fasciotomy and wound VAC placement by Dr. Turner - off VAC - Wound - culture- fasciotomy site- with Indigo, PSAE - Continue oxycodone, morphine when necessary for pain - s/p Washout of the right thigh removal of acellular matrix and placement of the wound VAC on 08/24/2016. - S/P right thigh debridement by plastic - 08/31 - Possible Split thickness skin graft this week- Dr. Guerra ff -on Diflucan started 08/31- Indigo on culture - started Levaquin 09/02- with PSAE on wound - S/P Severe sepsis - S/P Escherichia coli urinary tract infection - Currently resolved. Infectious disease following along with us - s/p Vanc, zosyn and later Daptomycin and Levaquin. - -Pancytopenia due to sepsis, DIC. liver failure- multifactorial Macrocytic anemia - Thrombocytopenia - Symptomatic anemia - Transfused total 4 units PRBCs, 2 pack platelets, 2 FFP 2 cryo-since admission - H and H stable - Sp transfusion of 1 unit PRBC on 08/27 hb 7.8 ----> 9.5. - 08/31/16 patient would likely acute postop anemia, the patient's hemoglobin dropped from 9.2-8 continue to monitor hemoglobin and transfuse if less than 7 or patient symptomatic. - Dr. Felix consulted and will be ff along with us - S/P Acute kidney injury secondary to Rhabdom and ATN - patient with good urine output, creatinine stabilizing- non oliguric - Acute rhabdomyolysis. CPK [id number] on 07/25/2016 ==> 118 on 08/07/2016. - Nephrology following. - Vas-Cath removed. Patient is off HD -Depression- Psychiatry ff- very motivated and optimistic- more interactive - Polysubstance abuse including cocaine/heroine - Use PRN Ativan for anxiety and oxycodone/morphine as needed for pain. - CT of the head 07/25 revealed no acute intracranial findings. Continue aspirin, thiamine and multivitamins. - MRI brain 07/29 revealed T2 signal abnormality globus pallidus and mesial temporal lobe bilaterally. - EEG 07/30 revealed slowing system with moderate diffuse encephalopathy. No seizure activity. - Psychiatry lifted Osborn act 07/29/2016 - neurology evaluated the patient and feels that MRI results are from drug overdose. - Ophthalmology exam negative for Bre-Sylvia rings. - Mild Respiratory insufficiency secondary to pneumonia/metabolic acidosis - Small consolidation right middle lobe - Right basilar pulmonary nodule 3 mm - follow-up CT chest 3 months recommended - Tobacco abuse. - good sats at room now on room air,cough has resolved, continue incentive spirometry, duo nebs. - CT chest 07/25/2016 revealed right middle lobe infiltrate along with 3 mm right basilar pulmonary nodule. - Chest x-ray 07/26/2016 reveals no significant cardio pulmonary findings - Sinus tachycardia- improved - NSTEMI - likely due to cocaine abuse - Hypertension -ASA - on Lopressor prn.-not getting it- discontinued Amlodipine decreased to 2.5 mg po daily- monitor - SBPs in the 90s-110. DC amlodipine and monitor BP 09/06 monitor - Transaminitis - resolved. - Hyperammonemia - resolved - likely due to rhabdomyolysis, hypotension. - CT of the abdomen and pelvis shows fatty liver/21 mm right ovarian cyst - Negative hepatitis panel - Xifaxan 550 twice a day/lactulose 30mg 3 times a day for elevated ammonia. - S/P liver biopsy 08/13/16 - showed minimal steatosis. Patient up and ambulating around Full code Problem Qualifiers (1) Drug overdose: Qualified Code: T50.904A - Drug overdose, undetermined intent, initial encounter (2) Acute kidney failure: Qualified Code: N17.9 - Acute renal failure, unspecified acute renal failure type (3) Anemia: Rocky Tyler MD Sep 06, 2016 07:46
[2016-09-06 08:00] VITALS: BP 107/69; PULSE 84; RESP 16; TEMP 99.3; O2SAT 99
[2016-09-06] MEDS ORDERED: amLODIPine BESYLATE 5 MG TAB PO SCH (09:00)
[2016-09-06] MEDS: FERROUS SULFATE 325 MG (65 MG ELEMENTAL IRON) TAB PO SCH ×2 (11:02→15:44)
--- NOTE | 2016-09-06 11:09 | PD.ONC.PN ---
Subjective Subjective Remarks Afebrile overnight. Pt resting in bed asleep on approach. She c/o some pain in her R thigh. States it is time for her pain meds. She denies bleeding or SOB. Objective Data Date Time Temp Pulse Resp B/P Pulse Ox O2 Delivery O2 Flow Rate FiO2 09/06/16 08:00 99.3 84 16 107/69 99 09/06/16 05:43 16 09/06/16 03:55 97.7 81 16 115/77 97 09/06/16 00:00 97.9 95 18 111/76 98 09/05/16 20:00 98.7 86 18 104/72 98 09/05/16 16:00 97.3 75 17 103/62 100 09/05/16 12:00 97.8 73 18 92/56 99 09/06/16 09/06/16 09/06/16 07:00 15:00 23:00 Intake Total 240 ml Balance 240 ml Result Diagram: 09/03/16 0031 Administered Medications Medications (Trade) Dose Ordered Sig/Sara Route PRN Reason Start Time Stop Time Status Last Admin Dose Admin Aspirin (Ecotrin Ec) 325 mg DAILY PO 07/26/16 09:00 09/05/16 09:03 Morphine Sulfate (Morphine Inj) 4 mg Q2H PRN IV breaktgrough PAIN 07/25/16 23:45 09/05/16 05:08 Multivitamins (Theragran) 1 tab DAILY PO 07/26/16 09:00 09/06/16 07:33 Folic Acid (Folate) 1 mg DAILY PO 07/26/16 09:00 09/06/16 07:33 Ondansetron HCl (Zofran Inj) 4 mg Q6H PRN IV NAUSEA OR VOMITING 07/26/16 08:00 07/29/16 04:18 Rifaximin (Xifaxan) 550 mg BID PO 07/26/16 10:00 09/06/16 07:33 Hydralazine HCl (Apresoline Inj) 10 mg Q1HR PRN IV PUSH SBP>160, DBP>90 07/28/16 09:30 08/01/16 09:30 Famotidine (Pepcid) 10 mg BID PO 07/29/16 09:00 09/06/16 07:32 Oxycodone HCl (Roxicodone) 5 mg Q6H PRN PO PAIN SCALE 1 TO 10 07/29/16 09:00 09/06/16 04:31 Lactulose (Lactulose Liq) 30 ml BID PO 07/30/16 21:00 09/06/16 07:33 IV Flush (NS Flush) UNSCH PRN IVF SEE PROTOCOL 07/30/16 16:15 09/06/16 07:33 Heparin Sodium (Porcine) (Heparin Inj) UNSCH PRN IVF SEE PROTOCOL 07/30/16 16:15 08/11/16 11:35 Thiamine HCl (Vitamin B1) 100 mg DAILY PO 08/02/16 11:00 09/06/16 07:33 Benzonatate (Tessalon) 100 mg TID PRN PO cough 08/13/16 19:30 08/13/16 20:26 Ferrous Sulfate (Ferrous Sulfate) 325 mg BID@ PO 08/18/16 17:00 09/05/16 18:36 Fluconazole (Diflucan) 200 mg DAILY PO 08/31/16 13:00 09/06/16 07:32 Levofloxacin (Levaquin) 750 mg DAILY PO 09/03/16 09:00 09/06/16 07:33 Objective Remarks GENERAL: Younger female, asleep in bed on approach in no distress. Awakens easily to verbal stimuli. SKIN: Warm and dry. Dry and intact dressing to R lateral thigh/hip. HEAD: Normocephalic. EYES: No injection or drainage. NECK: Supple, trachea midline. CARDIOVASCULAR: +S1/S2. RESPIRATORY: Lungs clear throughout. Breathing easy and unlabored. GASTROINTESTINAL: Abdomen soft, non-tender, nondistended. +BS. EXTREMITIES: No edema. NEUROLOGICAL: No obvious focal deficit. Awake, alert, and oriented x3. Assessment/Plan Problem List: (1) Pancytopenia Status: Acute Plan: 09/06/16: Labs pending for today. Pt reports no bleeding. Dressing clean to R lateral thigh. 09/03/16: counts stable. 09/02/15: monitor CBC. counts stable fibrinogen trended upward. 09/01/2016 Labs showed DIC with hypofibrinogenemia, blood counts trended slightly lower. No active bleeding noted. No significant symptoms. Not able to interpret iron study due to recent PRBC transfusion. History: --multifactorial due to recent sepsis, liver failure. --has had multiple surgeries to debride the right thigh wound. likely has a consumptive process like DIC + blood loss from multiple surgeries on the wound. --has not had menstrual period during this hospital stay. --doubt primary bone marrow disorder. Assessment 30y/o female admitted with compartment syndrome, now s/p fasciotomy with chronic open wound. Hematology consulted for pancytopenia. h/o Recent sepsis with urinary tract infection and pneumonia. completed a course of antibiotic, no evidence of infection at this time. h/o Recent liver failure which has resolved. h/o Acute renal failure which has improved. Plan 1. Monitor blood work. 2. Assess for bleeding. Attending Statement The exam, history, and the medical decision-making described in the above note were completed with the assistance of the mid-level provider. I reviewed and agree with the findings presented. I attest that I had a [id number] encounter with the patient on the same day, and personally performed and documented my assessment and findings in the medical record. Right thigh pain stable. No bleeding. Still has pancytopenia but counts relatively stable. Still has low grade DIC but fibrinogen is trending up. Claribel Coles Sep 06, 2016 11:09 Stu Felix MD Sep 06, 2016 15:43
[2016-09-06 12:00] VITALS: BP 118/85; PULSE 95; RESP 16; TEMP 98.8; O2SAT 100
[2016-09-06] MEDS ORDERED: PROPOFOL 200 MG/20 ML AMP IV ONE (13:10)
[2016-09-06] MEDS ORDERED: ONDANSETRON HCL 4 MG/2 ML VIAL IV PUSH ONE (13:10)
[2016-09-06 13:26] LABS: AUTOMATED NEUTROPHIL # 1.2 TH/MM3 (1.8-7.7); BASOPHIL % 0.7 % (0.0-2.0); EOSINOPHIL # 0.1 TH/MM3 (0-0.4); EOSINOPHIL % 5.2 % (0.0-4.0); HEMATOCRIT 24.2 % (35.0-46.0); HEMO FLAGS DIFF FINAL; LYMPH % 36.4 % (9.0-44.0); MEAN CELL VOLUME 87.3 FL (80.0-100.0); MEAN CORPUSCULAR HEMOGLOBIN 30.3 PG (27.0-34.0); MEAN CORPUSCULAR HGB CONC 34.7 % (32.0-36.0); MONO % 11.3 % (0.0-8.0); NEUT % 46.4 % (16.0-70.0); PLATELET COUNT 148 TH/MM3 (150-450); RED BLOOD COUNT 2.77 MIL/MM3 (4.00-5.30); RED CELL DISTRIBUTION WIDTH 14.1 % (11.6-17.2); WHITE BLOOD COUNT 2.7 TH/MM3 (4.0-11.0)
[2016-09-06 13:55] LABS: ALKALINE PHOSPHATASE 69 U/L (45-117); ALT (GPT) 11 U/L (10-53); ANION GAP 10 MEQ/L (5-15); AST (GOT) 10 U/L (15-37); BICARBONATE 27.1 MEQ/L (21.0-32.0); BLOOD UREA NITROGEN 6 MG/DL (7-18); CHLORIDE 101 MEQ/L (98-107); GLOMERULAR FILTRATION RATE 54 ML/MIN (>89); POTASSIUM 3.8 MEQ/L (3.5-5.1); SODIUM (NA) 138 MEQ/L (136-145); TOTAL BILIRUBIN ADULT 0.2 MG/DL (0.2-1.0)
[2016-09-06 13:57] LABS: APTT (PATIENT) 30.9 SEC (24.3-30.1); INTERNATIONAL NORMALIZED RATIO 1.1 RATIO; PROTHROMBIN TIME - PATIENT 12.3 SEC (9.8-11.6)
[2016-09-06] MEDS ORDERED: MINERAL OIL 10 ML VIAL ONE (15:39)
[2016-09-06] MEDS ORDERED: LIDOCAINE 1%/EPINEPHrine 1:100,000 SOLN 20 ML VIAL ONE (15:40)
[2016-09-06 16:00] VITALS: BP 123/83; PULSE 103; RESP 16; TEMP 98.1; O2SAT 98
[2016-09-06] MEDS ORDERED: ACETAMINOPHEN 1000 MG/100 ML VIAL IV ONE (18:08)
[2016-09-06] MEDS ORDERED: MIDAZOLAM HCL 2 MG/2 ML VIAL ONE (18:08)
[2016-09-06] MEDS ORDERED: EPINEPHrine HCL (1:1000) 1 MG/ML VIAL ONE (18:53)
[2016-09-06] MEDS ORDERED: GENTAMICIN SULFATE 80 MG/2 ML VIAL ONE (18:54)
[2016-09-06] MEDS ORDERED: EPINEPHrine HCL (1:1000) 1 MG/ML VIAL OTHER ONE (19:04)
[2016-09-06] MEDS ORDERED: GENTAMICIN SULFATE 80 MG/2 ML VIAL IRRIGATION ONE (19:04)
[2016-09-06] MEDS ORDERED: DO NOT ADM ANY ANTICOAGULANT DRUGS XX PRN (19:56)
[2016-09-06] MEDS ORDERED: MORPHINE SULFATE 4 MG/ML INJ ONE (20:17)
[2016-09-06] MEDS ORDERED: *morphine SULFATE 8 MG/ML PERIprocedure ONLY ONE (20:26)
[2016-09-06] MEDS: MORPHINE SULFATE 4 MG/ML INJ IV PRN (20:26)
[2016-09-06 21:14] LABS: MEAN CORPUSCULAR HGB CONC 36.1 % (32.0-36.0)
[2016-09-07] VITALS (9 sets, daily range): BP systolic 118–142; BP diastolic 80–91; PULSE 71–113; RESP 16–18; TEMP 96.6–98.7; O2SAT 96–100
[2016-09-07] MEDS: MORPHINE SULFATE 4 MG/ML INJ IV PRN ×3 (00:07→21:00)
[2016-09-07 05:40] LABS: AUTOMATED NEUTROPHIL # 1.7 TH/MM3 (1.8-7.7); BASOPHIL % 0.1 % (0.0-2.0); EOSINOPHIL % 0.1 % (0.0-4.0); LYMPH % 15.6 % (9.0-44.0); LYMPHOCYTE # 0.3 TH/MM3 (1.0-4.8); MEAN CELL VOLUME 86.8 FL (80.0-100.0); MEAN CORPUSCULAR HEMOGLOBIN 31.3 PG (27.0-34.0); MONO % 2.7 % (0.0-8.0); NEUT % 81.5 % (16.0-70.0); PLATELET COUNT 157 TH/MM3 (150-450); RED BLOOD COUNT 2.37 MIL/MM3 (4.00-5.30); RED CELL DISTRIBUTION WIDTH 13.9 % (11.6-17.2); WHITE BLOOD COUNT 2.1 TH/MM3 (4.0-11.0)
[2016-09-07 05:44] LABS: HEMO FLAGS AUTO DIFF
[2016-09-07 05:46] LABS: HEMATOCRIT 20.6 % (35.0-46.0)
[2016-09-07 07:18] LABS: ACANTHOCYTES OCC (NORMAL); PLATELET ESTIMATE SMEAR NORMAL (NORMAL); PLATELET MORPHOLOGY NORMAL (NORMAL); SCAN/DIFF AUTO DIFF CONFIRMED
[2016-09-07] MEDS: RIFAXIMIN 550 MG TAB PO SCH ×2 (07:48→20:59)
[2016-09-07] MEDS: LACTULOSE SYRUP 20 GM/30 ML CUP PO SCH ×2 (07:48→20:59)
[2016-09-07] MEDS: LEVOFLOXACIN 750 MG TAB PO SCH (07:48)
[2016-09-07] MEDS: FAMOTIDINE 20 MG TAB PO SCH ×2 (07:48→20:59)
[2016-09-07] MEDS: MULTIVITAMIN TAB PO SCH (07:48)
[2016-09-07] MEDS: ASPIRIN EC 325 MG TABEC PO SCH (07:49)
[2016-09-07] MEDS: FOLIC ACID 1 MG TAB PO SCH (07:49)
[2016-09-07] MEDS: FLUCONAZOLE 200 MG TAB PO SCH (07:49)
[2016-09-07] MEDS: THIAMINE HCL 100 MG TAB PO SCH (07:49)
--- NOTE | 2016-09-07 09:21 | PD.ONC.PN ---
Subjective Subjective Remarks Afebrile overnight. Patient resting comfortably without complaint. She denies bleeding. Objective Data Date Time Temp Pulse Resp B/P Pulse Ox O2 Delivery O2 Flow Rate FiO2 09/07/16 08:00 96.6 71 18 120/84 100 09/07/16 04:00 97.0 113 18 133/91 99 09/07/16 02:05 100 09/07/16 00:00 97.9 98 16 118/85 99 09/06/16 20:35 97.1 95 15 130/91 98 Room Air 09/06/16 20:15 94 15 139/94 99 Room Air 09/06/16 20:02 98.4 105 14 117/99 99 Room Air 09/06/16 16:00 98.1 103 16 123/83 98 09/06/16 12:02 18 09/06/16 12:00 98.8 95 16 118/85 100 09/07/16 09/07/16 09/07/16 07:00 15:00 23:00 Intake Total 120 ml Output Total 200 ml Balance -80 ml Result Diagram: 09/07/16 0435 09/06/16 1250 Laboratory Results Laboratory Tests Test 09/06/16 09/07/16 12:50 04:35 White Blood Count 2.7 TH/MM3 2.1 TH/MM3 Red Blood Count 2.77 MIL/MM3 2.37 MIL/MM3 Hemoglobin 8.4 GM/DL 7.4 GM/DL Hematocrit 24.2 % 20.6 % Mean Corpuscular Volume 87.3 FL 86.8 FL Mean Corpuscular Hemoglobin 30.3 PG 31.3 PG Mean Corpuscular Hemoglobin 34.7 % 36.1 % Concent Red Cell Distribution Width 14.1 % 13.9 % Platelet Count 148 TH/MM3 157 TH/MM3 Mean Platelet Volume 7.7 FL 8.3 FL Neutrophils (%) (Auto) 46.4 % 81.5 % Lymphocytes (%) (Auto) 36.4 % 15.6 % Monocytes (%) (Auto) 11.3 % 2.7 % Eosinophils (%) (Auto) 5.2 % 0.1 % Basophils (%) (Auto) 0.7 % 0.1 % Neutrophils # (Auto) 1.2 TH/MM3 1.7 TH/MM3 Lymphocytes # (Auto) 1.0 TH/MM3 0.3 TH/MM3 Monocytes # (Auto) 0.3 TH/MM3 0.1 TH/MM3 Eosinophils # (Auto) 0.1 TH/MM3 0.0 TH/MM3 Basophils # (Auto) 0.0 TH/MM3 0.0 TH/MM3 CBC Comment DIFF FINAL AUTO DIFF Differential Comment AUTO DIFF CONFIRMED Prothrombin Time 12.3 SEC Prothromb Time International 1.1 RATIO Ratio Activated Partial 30.9 SEC Thromboplast Time Fibrinogen 217 mg/dL Sodium Level 138 MEQ/L Potassium Level 3.8 MEQ/L Chloride Level 101 MEQ/L Carbon Dioxide Level 27.1 MEQ/L Anion Gap 10 MEQ/L Blood Urea Nitrogen 6 MG/DL Creatinine 1.17 MG/DL Estimat Glomerular Filtration 54 ML/MIN Rate Random Glucose 95 MG/DL Calcium Level 8.8 MG/DL Total Bilirubin 0.2 MG/DL Aspartate Amino Transf 10 U/L (AST/SGOT) Alanine Aminotransferase 11 U/L (ALT/SGPT) Alkaline Phosphatase 69 U/L Total Protein 5.7 GM/DL Albumin 2.2 GM/DL Platelet Estimate NORMAL Platelet Morphology Comment NORMAL Acanthocytes OCC Administered Medications Medications (Trade) Dose Ordered Sig/Sara Route PRN Reason Start Time Stop Time Status Last Admin Dose Admin Aspirin (Ecotrin Ec) 325 mg DAILY PO 07/26/16 09:00 09/07/16 07:49 Morphine Sulfate (Morphine Inj) 4 mg Q2H PRN IV breaktgrough PAIN 07/25/16 23:45 09/07/16 00:07 Multivitamins (Theragran) 1 tab DAILY PO 07/26/16 09:00 09/07/16 07:48 Folic Acid (Folate) 1 mg DAILY PO 07/26/16 09:00 09/07/16 07:49 Ondansetron HCl (Zofran Inj) 4 mg Q6H PRN IV NAUSEA OR VOMITING 07/26/16 08:00 07/29/16 04:18 Rifaximin (Xifaxan) 550 mg BID PO 07/26/16 10:00 09/07/16 07:48 Hydralazine HCl (Apresoline Inj) 10 mg Q1HR PRN IV PUSH SBP>160, DBP>90 07/28/16 09:30 08/01/16 09:30 Famotidine (Pepcid) 10 mg BID PO 07/29/16 09:00 09/07/16 07:48 Oxycodone HCl (Roxicodone) 5 mg Q6H PRN PO PAIN SCALE 1 TO 10 07/29/16 09:00 09/07/16 04:00 Lactulose (Lactulose Liq) 30 ml BID PO 07/30/16 21:00 09/07/16 07:48 IV Flush (NS Flush) UNSCH PRN IVF SEE PROTOCOL 07/30/16 16:15 09/06/16 07:33 Heparin Sodium (Porcine) (Heparin Inj) UNSCH PRN IVF SEE PROTOCOL 07/30/16 16:15 08/11/16 11:35 Thiamine HCl (Vitamin B1) 100 mg DAILY PO 08/02/16 11:00 09/07/16 07:49 Benzonatate (Tessalon) 100 mg TID PRN PO cough 08/13/16 19:30 08/13/16 20:26 Ferrous Sulfate (Ferrous Sulfate) 325 mg BID@ PO 08/18/16 17:00 09/06/16 11:02 Fluconazole (Diflucan) 200 mg DAILY PO 08/31/16 13:00 09/07/16 07:49 Levofloxacin (Levaquin) 750 mg DAILY PO 09/03/16 09:00 09/07/16 07:48 Objective Remarks GENERAL: Young woman, lying in bed resting comfortably. SKIN: Warm and dry. HEAD: Normocephalic. EYES: No injection or drainage. NECK: Supple, trachea midline. CARDIOVASCULAR: +S1/S2 RESPIRATORY: Breath sounds equal bilaterally. No accessory muscle use. GASTROINTESTINAL: Abdomen soft, non-tender, nondistended. EXTREMITIES: No cyanosis MUSCULOSKELETAL: Adequate muscle tone. NEUROLOGICAL: sleeping on approach. easily awakened. normal speech. Assessment/Plan Problem List: (1) Pancytopenia Status: Acute Plan: 09/07/16: slight dip in hgb and WBC. will monitor. no bleeding 09/03/16: counts stable. 09/02/15: monitor CBC. counts stable fibrinogen trended upward. 09/01/2016 Labs showed DIC with hypofibrinogenemia, blood counts trended slightly lower. No active bleeding noted. No significant symptoms. Not able to interpret iron study due to recent PRBC transfusion. History: --multifactorial due to recent sepsis, liver failure. --has had multiple surgeries to debride the right thigh wound. likely has a consumptive process like DIC + blood loss from multiple surgeries on the wound. --has not had menstrual period during this hospital stay. --doubt primary bone marrow disorder. Assessment 30y/o female admitted with compartment syndrome, now s/p fasciotomy with chronic open wound. Hematology consulted for pancytopenia. h/o Recent sepsis with urinary tract infection and pneumonia. completed a course of antibiotic, no evidence of infection at this time. h/o Recent liver failure which has resolved. h/o Acute renal failure which has improved. Plan 1. Monitor CBC 2. supportive care Attending Statement The exam, history, and the medical decision-making described in the above note were completed with the assistance of the mid-level provider. I reviewed and agree with the findings presented. I attest that I had a [id number] encounter with the patient on the same day, and personally performed and documented my assessment and findings in the medical record. No new symptoms, no bleeding. Hgb trended down slightly. I think she has low grade DIC. She also has iron deficiency due to multiple surgeries. Will give venofer x1 today. Jeanna Lobo Sep 07, 2016 09:21 Stu Felix MD Sep 07, 2016 16:02
[2016-09-07] MEDS: FERROUS SULFATE 325 MG (65 MG ELEMENTAL IRON) TAB PO SCH ×2 (10:59→15:53)
[2016-09-07] MEDS ORDERED: IRON SUCROSE INJ 200 MG in SODIUM CHLORIDE 0.9% INJ 100 ML IV ONE (11:00)
--- NOTE | 2016-09-07 13:45 | HHI.PR ---
Subjective Remarks constipation no abdominal pain, N/V Objective Vitals Vital Signs Date Time Temp Pulse Resp B/P Pulse Ox O2 Delivery O2 Flow Rate FiO2 09/07/16 12:27 100 21 09/07/16 12:00 97.1 74 18 120/80 98 09/07/16 11:59 18 09/07/16 08:00 96.6 71 18 120/84 100 09/07/16 04:00 97.0 113 18 133/91 99 09/07/16 02:05 100 09/07/16 00:00 97.9 98 16 118/85 99 09/06/16 20:35 97.1 95 15 130/91 98 Room Air 09/06/16 20:15 94 15 139/94 99 Room Air 09/06/16 20:02 98.4 105 14 117/99 99 Room Air 09/06/16 16:00 98.1 103 16 123/83 98 I/O 09/06/16 09/06/16 09/06/16 09/07/16 09/07/16 09/07/16 07:00 15:00 23:00 07:00 15:00 23:00 Intake Total 240 ml 240 ml 1090 ml 120 ml Output Total 10 ml 200 ml Balance 240 ml 240 ml 1080 ml -80 ml Intake Oral 240 ml 240 ml 240 ml 120 ml IV Total 0 ml 0 ml 150 ml Other 700 ml Output Urine Total 0 ml 200 ml Estimated Blood Loss 10 ml # Voids 3 2 0 # Bowel Movements 0 0 0 0 # Sanitary Pads 1 Pads 1 Pads Result Diagram: 09/07/16 0435 09/06/16 1250 Imaging Last Impressions Liver Biopsy CT 08/13/16 0000 Signed Impressions: Service Date/Time: Saturday, August 13, 2016 12:42 - CONCLUSION: Uncomplicated CT guided biopsy. Raymundo Agarwal MD Chest X-Ray 08/09/16 0000 Signed Impressions: Service Date/Time: Tuesday, August 09, 2016 19:30 - CONCLUSION: 1. Interval placement of double-lumen central venous line. 2. Hazy opacity at the lung bases with mild blunting of the left costophrenic angle which could indicate a small effusion. Nael Zuñiga MD Catheter Placement X-Ray 07/30/16 0000 Signed Impressions: Service Date/Time: Saturday, July 30, 2016 14:14 - CONCLUSION: Uncomplicated line placement as above. Judson Cee MD Brain MRI 07/29/16 0000 Signed Impressions: Service Date/Time: July 13:34 - CONCLUSION: 1. Abnormal examination of the brain demonstrating areas of T2 signal and abnormal diffusion signal involving the globus pallidus bilaterally and the mesial temporal lobes bilaterally. Primary considerations would include carbon monoxide poisoning versus other partial anoxic brain injury. Please see above discussion. Aamir Narayanan MD Abdomen Ultrasound 07/26/16 0000 Signed Impressions: Service Date/Time: Tuesday, July 26, 2016 10:21 - CONCLUSION: 1. Small amount of free fluid adjacent to the lower poles of both kidneys. 2. Obscuration of the head of the pancreas, distal IVC and aorta due to overlying bowel gas. 3. Otherwise negative. Judson Cee MD Lower Extremity CT 07/25/16 0000 Signed Impressions: Service Date/Time: Monday, July 25, 2016 18:54 - CONCLUSION: Extensive nonspecific myositis of the right thigh, also involves gluteus medius and minimus proximally and at least medial gastrocnemius below the knee. Infectious/inflammatory and ischemic etiologies would be in the differential. No gas bubbles are seen to substantiate necrotizing fasciitis. No organized/drainable abscess. Glenroy Sheffield MD Hip and Pelvis X-Ray 07/25/16 0000 Signed Impressions: Service Date/Time: Monday, July 25, 2016 16:52 - CONCLUSION: Intact pelvis and right hip. Nonspecific surrounding soft tissue swelling Glenroy Sheffield MD Head CT 07/25/16 0000 Signed Impressions: Service Date/Time: Monday, July 25, 2016 14:38 - CONCLUSION: Negative noncontrast head CT. Glenroy Sheffield MD Chest CT 07/25/16 0000 Signed Impressions: Service Date/Time: Monday, July 25, 2016 16:37 - CONCLUSION: Focal dense consolidation right middle lobe, nonspecific but most likely infectious or inflammatory. Also a 3 mm right basilar pulmonary nodule Followup noncontrast chest CT in a few months recommended to confirm resolution/stability. Glenroy Sheffield MD Abdomen/Pelvis CT 07/25/16 0000 Signed Impressions: Service Date/Time: Monday, July 25, 2016 16:37 - CONCLUSION: 1. Fatty liver and 21 mm right ovarian cyst. Otherwise, no acute abnormality seen within the abdomen or pelvis. 2. Swollen, heterogeneous right hip musculature, primarily gluteus medius and minimus, rectus femoris and vastus lateralis and the adductor muscles. This is nonspecific but suggests a subacute hematoma of these structures. Nothing organized/measurable. 3. Chronic L5 pars defects with grade 2 L5/S1 spondylolisthesis. Glenroy Sheffield MD Objective Remarks GENERAL: awake and alert, oriented x 3, speech clear, more interactive this am and smiling EYES: No scleral icterus. No injection or drainage. NECK: Supple, trachea midline. No JVD or lymphadenopathy. CARDIOVASCULAR: Regular rate and rhythm without murmurs, gallops, or rubs. RESPIRATORY: lungs clear GASTROINTESTINAL: Abdomen soft, non-tender, nondistended. Right thigh- lateral aspect - extensive wound - good granulation tissue, edges clean, no necrotic tissue, no foul smell - previous exam good peripheral pulses, no calves tenderness Procedures 08/24/2016 Washout of the right thigh removal of acellular matrix and placement of the wound VAC. 08/16/2016 Washout of the fasciotomy site with reattachment of acellular matrix and wound Vac. 08/06/2016 Washout of the fasciotomy site and placement of acellular matrix coverage with wound VAC placement. 07/26/2016 Pulse irrigation of the medial and lateral fasciotomy, closure of the medial wound, partial closure of the lateral wound and large wound Vac placement. 07/25/2016 Medial and lateral fasciotomy and compartment release of the thigh with right gluteal area. A/P Problem List: (1) Compartment syndrome of right lower extremity ICD Code: T79.A21A Status: Resolved (2) Rhabdomyolysis ICD Code: M62.82 Status: Resolved (3) Drug overdose ICD Code: T50.901A Status: Resolved (4) Acute kidney failure ICD Code: N17.9 Status: Resolved (5) Small right middle lobe consolidation Status: Resolved (6) Hip hematoma, right ICD Code: S70.01XA Status: Resolved (7) Leukopenia ICD Code: D72.819 Status: Acute (8) Anemia ICD Code: D64.9 Status: Acute Assessment and Plan Ms. Sahu is a 30 year old female who was admitted to the hospital on 2015 to the ICU due to drug overdose, right sided numbness, hyperkalemia, CARLITO, hypotension, liver enzyme elevation, troponin elevation. Cardiology was contacted on the day of admission, STEMI was not suspected by cardiology. Patient admitted to using cocaine night prior to this admission. She also uses heroine. Patient right thigh was noted to be swollen with severe tenderness. Subsequently, patient underwent fasciotomy for compartment syndrome. Wound vac was placed. Patient underwent several surgical intervention by Dr. Turner with regards to her right thigh. Patient also required hemodialysis with regards to her CARLITO. Due to improvement of her renal function, hemodialysis has been discontinued. - Right thigh compartment syndrome - Status post right fasciotomy and wound VAC placement by Dr. Turner - off VAC - Wound - culture- fasciotomy site- with Indigo, PSAE - Continue oxycodone, morphine when necessary for pain - s/p Washout of the right thigh removal of acellular matrix and placement of the wound VAC on 08/24/2016. - S/P right thigh debridement by plastic - 08/31 - S/P Possible Split thickness skin graft 09/06 -on Diflucan started 08/31- Indigo on culture - started Levaquin 09/02- with PSAE on wound - S/P Severe sepsis - S/P Escherichia coli urinary tract infection - Currently resolved. Infectious disease following along with us - s/p Vanc, zosyn and later Daptomycin and Levaquin. - -Pancytopenia due to sepsis, DIC. liver failure- multifactorial Macrocytic anemia - Thrombocytopenia - Symptomatic anemia- H and H drop post op 09/07 recheck in am - Transfused total 4 units PRBCs, 2 pack platelets, 2 FFP 2 cryo-since admission - H and H stable - Sp transfusion of 1 unit PRBC on 08/27 hb 7.8 ----> 9.5. - 08/31/16 patient would likely acute postop anemia, the patient's hemoglobin dropped from 9.2-8 continue to monitor hemoglobin and transfuse if less than 7 or patient symptomatic. - Dr. Felix consulted and will be ff along with us - S/P Acute kidney injury secondary to Rhabdom and ATN - patient with good urine output, creatinine stabilizing- non oliguric - Acute rhabdomyolysis. CPK [id number] on 07/25/2016 ==> 118 on 08/07/2016. - Nephrology following. - Vas-Cath removed. Patient is off HD -Depression- Psychiatry ff- very motivated and optimistic- more interactive - Polysubstance abuse including cocaine/heroine - Use PRN Ativan for anxiety and oxycodone/morphine as needed for pain. - CT of the head 07/25 revealed no acute intracranial findings. Continue aspirin, thiamine and multivitamins. - MRI brain 07/29 revealed T2 signal abnormality globus pallidus and mesial temporal lobe bilaterally. - EEG 07/30 revealed slowing system with moderate diffuse encephalopathy. No seizure activity. - Psychiatry lifted Osborn act 07/29/2016 - neurology evaluated the patient and feels that MRI results are from drug overdose. - Ophthalmology exam negative for Bre-Sylvia rings. - Mild Respiratory insufficiency secondary to pneumonia/metabolic acidosis - Small consolidation right middle lobe - Right basilar pulmonary nodule 3 mm - follow-up CT chest 3 months recommended - Tobacco abuse. - good sats at room now on room air,cough has resolved, continue incentive spirometry, duo nebs. - CT chest 07/25/2016 revealed right middle lobe infiltrate along with 3 mm right basilar pulmonary nodule. - Chest x-ray 07/26/2016 reveals no significant cardio pulmonary findings - Sinus tachycardia- improved - NSTEMI - likely due to cocaine abuse - Hypertension -ASA - on Lopressor prn.-not getting it- discontinued Amlodipine decreased to 2.5 mg po daily- monitor - SBPs in the 90s-110. DC amlodipine and monitor BP 09/06 monitor - Transaminitis - resolved. - Hyperammonemia - resolved - likely due to rhabdomyolysis, hypotension. - CT of the abdomen and pelvis shows fatty liver/21 mm right ovarian cyst - Negative hepatitis panel - Xifaxan 550 twice a day/lactulose 30mg 3 times a day for elevated ammonia. - S/P liver biopsy 08/13/16 - showed minimal steatosis. Patient up and ambulating around Full code Problem Qualifiers (1) Drug overdose: Qualified Code: T50.904A - Drug overdose, undetermined intent, initial encounter (2) Acute kidney failure: Qualified Code: N17.9 - Acute renal failure, unspecified acute renal failure type (3) Anemia: Rocky Tyler MD Sep 07, 2016 13:45
[2016-09-07] MEDS: GENTAMICIN IRRIGATION SCH (14:00)
[2016-09-07] MEDS: [UNRECOGNIZED DRUG - OTHER] IRRIGATION SCH (14:00)
[2016-09-07] MEDS: POLYMYXIN B IRRIGATION SCH (14:00)
[2016-09-07] MEDS: CLINDAMYCIN IRRIGATION SCH (14:00)
[2016-09-08] MEDS: CLINDAMYCIN IRRIGATION SCH ×3 (03:42→23:17)
[2016-09-08] MEDS: [UNRECOGNIZED DRUG - OTHER] IRRIGATION SCH ×3 (03:42→23:17)
[2016-09-08] MEDS: POLYMYXIN B IRRIGATION SCH ×3 (03:42→23:17)
[2016-09-08] MEDS: MORPHINE SULFATE 4 MG/ML INJ IV PRN ×4 (03:42→20:02)
[2016-09-08] MEDS: GENTAMICIN IRRIGATION SCH ×3 (03:42→23:17)
[2016-09-08 04:49] LABS: AUTOMATED NEUTROPHIL # 5.3 TH/MM3 (1.8-7.7); BASOPHIL % 0.3 % (0.0-2.0); EOSINOPHIL % 0.4 % (0.0-4.0); HEMO FLAGS DIFF FINAL; LYMPH % 27.3 % (9.0-44.0); LYMPHOCYTE # 2.2 TH/MM3 (1.0-4.8); MEAN CELL VOLUME 89.9 FL (80.0-100.0); MEAN CORPUSCULAR HEMOGLOBIN 30.4 PG (27.0-34.0); MEAN CORPUSCULAR HGB CONC 33.8 % (32.0-36.0); MONO % 4.5 % (0.0-8.0); NEUT % 67.5 % (16.0-70.0); PLATELET COUNT 276 TH/MM3 (150-450); RED BLOOD COUNT 2.78 MIL/MM3 (4.00-5.30); RED CELL DISTRIBUTION WIDTH 14.3 % (11.6-17.2); WHITE BLOOD COUNT 7.9 TH/MM3 (4.0-11.0)
[2016-09-08 07:47] VITALS: BP 121/81; PULSE 95; RESP 18; TEMP 97.8; O2SAT 98
[2016-09-08] MEDS: RIFAXIMIN 550 MG TAB PO SCH ×2 (08:22→20:02)
[2016-09-08] MEDS: LEVOFLOXACIN 750 MG TAB PO SCH (08:22)
[2016-09-08] MEDS: THIAMINE HCL 100 MG TAB PO SCH (08:22)
[2016-09-08] MEDS: LACTULOSE SYRUP 20 GM/30 ML CUP PO SCH ×2 (08:22→20:02)
[2016-09-08] MEDS: MULTIVITAMIN TAB PO SCH (08:23)
[2016-09-08] MEDS: ASPIRIN EC 325 MG TABEC PO SCH (08:23)
[2016-09-08] MEDS: FAMOTIDINE 20 MG TAB PO SCH ×2 (08:23→20:02)
[2016-09-08] MEDS: FOLIC ACID 1 MG TAB PO SCH (08:23)
--- NOTE | 2016-09-08 09:44 | PD.PLAS.PN ---
Subjective Remarks Dressing changed except xeroform. Graft site seems clean and not much drainage. No smell. Gentamycin / polymyxin soaked dressing applied. Will change in 2-3 days. If the graft takes well, she can be ready for discharge early next week, Vital Signs Date Time Temp Pulse Resp B/P Pulse Ox O2 Delivery O2 Flow Rate FiO2 09/08/16 08:32 18 09/08/16 07:47 97.8 95 18 121/81 98 09/08/16 07:07 18 09/07/16 23:33 97.4 76 18 142/88 97 09/07/16 20:03 97.2 90 16 132/88 96 09/07/16 16:00 98.7 81 18 135/80 99 09/07/16 12:27 100 21 09/07/16 12:00 97.1 74 18 120/80 98 I/O 09/07/16 09/07/16 09/07/16 09/08/16 09/08/16 09/08/16 07:00 15:00 23:00 07:00 15:00 23:00 Intake Total 120 ml 100 ml 580 ml 380 ml 120 ml Output Total 200 ml 500 ml Balance -80 ml -400 ml 580 ml 380 ml 120 ml Intake Oral 120 ml 580 ml 380 ml 120 ml IV Total 100 ml Output Urine Total 200 ml 500 ml # Voids 3 2 # Bowel Movements 0 0 # Sanitary Pads 1 Pads Laboratory Tests Test 09/08/16 04:10 White Blood Count 7.9 Red Blood Count 2.78 Hemoglobin 8.4 Hematocrit 25.0 Mean Corpuscular Volume 89.9 Mean Corpuscular Hemoglobin 30.4 Mean Corpuscular Hemoglobin 33.8 Concent Red Cell Distribution Width 14.3 Platelet Count 276 Mean Platelet Volume 8.2 Neutrophils (%) (Auto) 67.5 Lymphocytes (%) (Auto) 27.3 Monocytes (%) (Auto) 4.5 Eosinophils (%) (Auto) 0.4 Basophils (%) (Auto) 0.3 Neutrophils # (Auto) 5.3 Lymphocytes # (Auto) 2.2 Monocytes # (Auto) 0.4 Eosinophils # (Auto) 0.0 Basophils # (Auto) 0.0 CBC Comment DIFF FINAL Differential Comment Result Diagram: 09/08/16 0410 09/06/16 1250 Alejandro Guerra MD Sep 08, 2016 09:44
[2016-09-08] MEDS: FERROUS SULFATE 325 MG (65 MG ELEMENTAL IRON) TAB PO SCH ×2 (11:44→16:29)
[2016-09-08 12:00] VITALS: BP 131/67; PULSE 110; RESP 17; TEMP 97.2; O2SAT 97
--- NOTE | 2016-09-08 13:00 | HHI.PR ---
Subjective Remarks good BM this am no pain complains Objective Vitals Vital Signs Date Time Temp Pulse Resp B/P Pulse Ox O2 Delivery O2 Flow Rate FiO2 09/08/16 08:32 18 09/08/16 07:47 97.8 95 18 121/81 98 09/08/16 07:07 18 09/07/16 23:33 97.4 76 18 142/88 97 09/07/16 20:03 97.2 90 16 132/88 96 09/07/16 16:00 98.7 81 18 135/80 99 I/O 09/07/16 09/07/16 09/07/16 09/08/16 09/08/16 09/08/16 07:00 15:00 23:00 07:00 15:00 23:00 Intake Total 120 ml 100 ml 580 ml 380 ml 120 ml Output Total 200 ml 500 ml Balance -80 ml -400 ml 580 ml 380 ml 120 ml Intake Oral 120 ml 580 ml 380 ml 120 ml IV Total 100 ml Output Urine Total 200 ml 500 ml # Voids 3 2 # Bowel Movements 0 0 # Sanitary Pads 1 Pads Result Diagram: 09/08/16 0410 09/06/16 1250 Imaging Last Impressions Liver Biopsy CT 08/13/16 0000 Signed Impressions: Service Date/Time: Saturday, August 13, 2016 12:42 - CONCLUSION: Uncomplicated CT guided biopsy. Raymundo Agarwal MD Chest X-Ray 08/09/16 0000 Signed Impressions: Service Date/Time: Tuesday, August 09, 2016 19:30 - CONCLUSION: 1. Interval placement of double-lumen central venous line. 2. Hazy opacity at the lung bases with mild blunting of the left costophrenic angle which could indicate a small effusion. Nael Zuñiga MD Catheter Placement X-Ray 07/30/16 0000 Signed Impressions: Service Date/Time: Saturday, July 30, 2016 14:14 - CONCLUSION: Uncomplicated line placement as above. Judson Cee MD Brain MRI 07/29/16 0000 Signed Impressions: Service Date/Time: July 13:34 - CONCLUSION: 1. Abnormal examination of the brain demonstrating areas of T2 signal and abnormal diffusion signal involving the globus pallidus bilaterally and the mesial temporal lobes bilaterally. Primary considerations would include carbon monoxide poisoning versus other partial anoxic brain injury. Please see above discussion. Aamir Narayanan MD Abdomen Ultrasound 07/26/16 0000 Signed Impressions: Service Date/Time: Tuesday, July 26, 2016 10:21 - CONCLUSION: 1. Small amount of free fluid adjacent to the lower poles of both kidneys. 2. Obscuration of the head of the pancreas, distal IVC and aorta due to overlying bowel gas. 3. Otherwise negative. Judson Cee MD Lower Extremity CT 07/25/16 0000 Signed Impressions: Service Date/Time: Monday, July 25, 2016 18:54 - CONCLUSION: Extensive nonspecific myositis of the right thigh, also involves gluteus medius and minimus proximally and at least medial gastrocnemius below the knee. Infectious/inflammatory and ischemic etiologies would be in the differential. No gas bubbles are seen to substantiate necrotizing fasciitis. No organized/drainable abscess. Glenroy Sheffield MD Hip and Pelvis X-Ray 07/25/16 Signed Impressions: Service Date/Time: Monday, July 25, 2016 16:52 - CONCLUSION: Intact pelvis and right hip. Nonspecific surrounding soft tissue swelling Glenroy Sheffield MD Head CT 07/25/16 0000 Signed Impressions: Service Date/Time: Monday, July 25, 2016 14:38 - CONCLUSION: Negative noncontrast head CT. Glenroy Sheffield MD Chest CT 07/25/16 0000 Signed Impressions: Service Date/Time: Monday, July 25, 2016 16:37 - CONCLUSION: Focal dense consolidation right middle lobe, nonspecific but most likely infectious or inflammatory. Also a 3 mm right basilar pulmonary nodule Followup noncontrast chest CT in a few months recommended to confirm resolution/stability. Glenroy Sheffield MD Abdomen/Pelvis CT 07/25/16 0000 Signed Impressions: Service Date/Time: Monday, July 25, 2016 16:37 - CONCLUSION: 1. Fatty liver and 21 mm right ovarian cyst. Otherwise, no acute abnormality seen within the abdomen or pelvis. 2. Swollen, heterogeneous right hip musculature, primarily gluteus medius and minimus, rectus femoris and vastus lateralis and the adductor muscles. This is nonspecific but suggests a subacute hematoma of these structures. Nothing organized/measurable. 3. Chronic L5 pars defects with grade 2 L5/S1 spondylolisthesis. Glenroy Sheffield MD Objective Remarks GENERAL: awake and alert, oriented x 3, speech clear, more interactive this am and smiling EYES: No scleral icterus. No injection or drainage. NECK: Supple, trachea midline. No JVD or lymphadenopathy. CARDIOVASCULAR: Regular rate and rhythm without murmurs, gallops, or rubs. RESPIRATORY: lungs clear GASTROINTESTINAL: Abdomen soft, non-tender, nondistended. Right thigh- lateral aspect -dressing in place good peripheral pulses, no calves tenderness Procedures 08/24/2016 Washout of the right thigh removal of acellular matrix and placement of the wound VAC. 08/16/2016 Washout of the fasciotomy site with reattachment of acellular matrix and wound Vac. 08/06/2016 Washout of the fasciotomy site and placement of acellular matrix coverage with wound VAC placement. 07/26/2016 Pulse irrigation of the medial and lateral fasciotomy, closure of the medial wound, partial closure of the lateral wound and large wound Vac placement. 07/25/2016 Medial and lateral fasciotomy and compartment release of the thigh with right gluteal area. A/P Problem List: (1) Compartment syndrome of right lower extremity ICD Code: T79.A21A Status: Resolved (2) Rhabdomyolysis ICD Code: M62.82 Status: Resolved (3) Drug overdose ICD Code: T50.901A Status: Resolved (4) Acute kidney failure ICD Code: N17.9 Status: Resolved (5) Small right middle lobe consolidation Status: Resolved (6) Hip hematoma, right ICD Code: S70.01XA Status: Resolved (7) Leukopenia ICD Code: D72.819 Status: Acute (8) Anemia ICD Code: D64.9 Status: Acute Assessment and Plan Ms. Sahu is a 30 year old female who was admitted to the hospital on 2015 to the ICU due to drug overdose, right sided numbness, hyperkalemia, CARLITO, hypotension, liver enzyme elevation, troponin elevation. Cardiology was contacted on the day of admission, STEMI was not suspected by cardiology. Patient admitted to using cocaine night prior to this admission. She also uses heroine. Patient right thigh was noted to be swollen with severe tenderness. Subsequently, patient underwent fasciotomy for compartment syndrome. Wound vac was placed. Patient underwent several surgical intervention by Dr. Turner with regards to her right thigh. Patient also required hemodialysis with regards to her CARLITO. Due to improvement of her renal function, hemodialysis has been discontinued. - Right thigh compartment syndrome - Status post right fasciotomy and wound VAC placement by Dr. Turner - off VAC - Wound - culture- fasciotomy site- with Indigo, PSAE - Continue oxycodone, morphine when necessary for pain - s/p Washout of the right thigh removal of acellular matrix and placement of the wound VAC on 08/24/2016. - S/P right thigh debridement by plastic - 08/31 - S/P Possible Split thickness skin graft 09/06 -on Diflucan started 08/31- Indigo on culture - started Levaquin 09/02- with PSAE on wound - ID ff. Plastics ff - S/P Severe sepsis - S/P Escherichia coli urinary tract infection - Currently resolved. Infectious disease following along with us - s/p Vanc, zosyn and later Daptomycin and Levaquin. - -Pancytopenia due to sepsis, DIC. liver failure- multifactorial Macrocytic anemia - Thrombocytopenia - Symptomatic anemia- H and H drop post op 09/07 recheck in am - Transfused total 4 units PRBCs, 2 pack platelets, 2 FFP 2 cryo-since admission - H and H stable - Sp transfusion of 1 unit PRBC on 08/27 hb 7.8 ----> 9.5. - 08/31/16 patient would likely acute postop anemia, the patient's hemoglobin dropped from 9.2-8 continue to monitor hemoglobin and transfuse if less than 7 or patient symptomatic. - Dr. Felix consulted and will be ff along with us - S/P Acute kidney injury secondary to Rhabdom and ATN - patient with good urine output, creatinine stabilizing- non oliguric - Acute rhabdomyolysis. CPK [id number] on 07/25/2016 ==> 118 on 08/07/2016. - Nephrology following. - Vas-Cath removed. Patient is off HD -Depression- Psychiatry ff- very motivated and optimistic- more interactive - Polysubstance abuse including cocaine/heroine - Use PRN Ativan for anxiety and oxycodone/morphine as needed for pain. - CT of the head 07/25 revealed no acute intracranial findings. Continue aspirin, thiamine and multivitamins. - MRI brain 07/29 revealed T2 signal abnormality globus pallidus and mesial temporal lobe bilaterally. - EEG 07/30 revealed slowing system with moderate diffuse encephalopathy. No seizure activity. - Psychiatry lifted Osborn act 07/29/2016 - neurology evaluated the patient and feels that MRI results are from drug overdose. - Ophthalmology exam negative for Bre-Sylvia rings. - Mild Respiratory insufficiency secondary to pneumonia/metabolic acidosis - Small consolidation right middle lobe - Right basilar pulmonary nodule 3 mm - follow-up CT chest 3 months recommended - Tobacco abuse. - good sats at room now on room air,cough has resolved, continue incentive spirometry, duo nebs. - CT chest 07/25/2016 revealed right middle lobe infiltrate along with 3 mm right basilar pulmonary nodule. - Chest x-ray 07/26/2016 reveals no significant cardio pulmonary findings - Sinus tachycardia- improved - NSTEMI - likely due to cocaine abuse - Hypertension -ASA - on Lopressor prn.-not getting it- discontinued Amlodipine decreased to 2.5 mg po daily- monitor - SBPs in the 90s-110. DC amlodipine and monitor BP 09/06 monitor - Transaminitis - resolved. - Hyperammonemia - resolved - likely due to rhabdomyolysis, hypotension. - CT of the abdomen and pelvis shows fatty liver/21 mm right ovarian cyst - Negative hepatitis panel - Xifaxan 550 twice a day/lactulose 30mg 3 times a day for elevated ammonia. - S/P liver biopsy 08/13/16 - showed minimal steatosis. Patient up and ambulating around- encouraged Full code Problem Qualifiers (1) Drug overdose: Qualified Code: T50.904A - Drug overdose, undetermined intent, initial encounter (2) Acute kidney failure: Qualified Code: N17.9 - Acute renal failure, unspecified acute renal failure type (3) Anemia: Rocky Tyler MD Sep 08, 2016 13:00
[2016-09-08 16:00] VITALS: BP 121/83; PULSE 87; RESP 19; TEMP 97.5; O2SAT 99
[2016-09-08] MEDS: SODIUM CHLORIDE 0.9% FLUSH 5 ML FLUSH IVF PRN (16:28)
--- NOTE | 2016-09-08 16:41 | PD.ONC.PN ---
Subjective Subjective Remarks Tolerated venofer. No bleeding noted. Objective Data Date Time Temp Pulse Resp B/P Pulse Ox O2 Delivery O2 Flow Rate FiO2 09/08/16 16:00 97.5 87 19 121/83 99 09/08/16 12:44 18 09/08/16 12:00 97.2 110 17 131/67 97 09/08/16 08:32 18 09/08/16 07:47 97.8 95 18 121/81 98 09/07/16 23:33 97.4 76 18 142/88 97 09/07/16 20:03 97.2 90 16 132/88 96 09/08/16 09/08/16 09/08/16 07:00 15:00 23:00 Intake Total 380 ml 1080 ml Output Total 800 ml Balance 380 ml 280 ml Result Diagram: 09/08/16 0410 09/06/16 1250 Laboratory Results Laboratory Tests Test 09/08/16 04:10 White Blood Count 7.9 TH/MM3 Red Blood Count 2.78 MIL/MM3 Hemoglobin 8.4 GM/DL Hematocrit 25.0 % Mean Corpuscular Volume 89.9 FL Mean Corpuscular Hemoglobin 30.4 PG Mean Corpuscular Hemoglobin 33.8 % Concent Red Cell Distribution Width 14.3 % Platelet Count 276 TH/MM3 Mean Platelet Volume 8.2 FL Neutrophils (%) (Auto) 67.5 % Lymphocytes (%) (Auto) 27.3 % Monocytes (%) (Auto) 4.5 % Eosinophils (%) (Auto) 0.4 % Basophils (%) (Auto) 0.3 % Neutrophils # (Auto) 5.3 TH/MM3 Lymphocytes # (Auto) 2.2 TH/MM3 Monocytes # (Auto) 0.4 TH/MM3 Eosinophils # (Auto) 0.0 TH/MM3 Basophils # (Auto) 0.0 TH/MM3 CBC Comment DIFF FINAL Differential Comment Administered Medications Medications (Trade) Dose Ordered Sig/Sara Route PRN Reason Start Time Stop Time Status Last Admin Dose Admin Aspirin (Ecotrin Ec) 325 mg DAILY PO 07/26/16 09:00 09/08/16 08:23 Morphine Sulfate (Morphine Inj) 4 mg Q2H PRN IV breaktgrough PAIN 07/25/16 23:45 09/08/16 16:28 Multivitamins (Theragran) 1 tab DAILY PO 07/26/16 09:00 09/08/16 08:23 Folic Acid (Folate) 1 mg DAILY PO 07/26/16 09:00 09/08/16 08:23 Ondansetron HCl (Zofran Inj) 4 mg Q6H PRN IV NAUSEA OR VOMITING 07/26/16 08:00 07/29/16 04:18 Rifaximin (Xifaxan) 550 mg BID PO 07/26/16 10:00 09/08/16 08:22 Hydralazine HCl (Apresoline Inj) 10 mg Q1HR PRN IV PUSH SBP>160, DBP>90 07/28/16 09:30 08/01/16 09:30 Famotidine (Pepcid) 10 mg BID PO 07/29/16 09:00 09/08/16 08:23 Oxycodone HCl (Roxicodone) 5 mg Q6H PRN PO PAIN SCALE 1 TO 10 07/29/16 09:00 09/08/16 11:44 Lactulose (Lactulose Liq) 30 ml BID PO 07/30/16 21:00 09/08/16 08:22 IV Flush (NS Flush) UNSCH PRN IVF SEE PROTOCOL 07/30/16 16:15 09/08/16 16:28 Heparin Sodium (Porcine) (Heparin Inj) UNSCH PRN IVF SEE PROTOCOL 07/30/16 16:15 08/11/16 11:35 Thiamine HCl (Vitamin B1) 100 mg DAILY PO 08/02/16 11:00 09/08/16 08:22 Benzonatate (Tessalon) 100 mg TID PRN PO cough 08/13/16 19:30 08/13/16 20:26 Ferrous Sulfate (Ferrous Sulfate) 325 mg BID@,17 PO 08/18/16 17:00 09/08/16 16:29 Levofloxacin 750 mg 750 mg DAILY PO 09/03/16 09:00 09/08/16 08:22 Gentamicin Sulfate/ Clindamycin Phosphate/ Polymyxin B Sulfate/Sterile Water (Gentamicin Inj/ Cleocin Inj/ Aerosporin Inj/ Sterile Water For Irr Btl) 250.9167 ml @ 0 mls/ hr Q12H IRRIGATION 09/07/16 14:00 09/08/16 03:42 Objective Remarks GENERAL: Well-nourished, well-developed patient. SKIN: Warm and dry. HEAD: Normocephalic. EYES: No scleral icterus. No injection or drainage. NECK: Supple, trachea midline. No JVD or lymphadenopathy. LYMPHATIC: No adenopathy. CARDIOVASCULAR: Regular rate and rhythm without murmurs. RESPIRATORY: Breath sounds equal bilaterally. No accessory muscle use. GASTROINTESTINAL: Abdomen soft, non-tender, nondistended. EXTREMITIES: No cyanosis, or edema. Right thigh dressing dry MUSCULOSKELETAL: Adequate muscle tone. NEUROLOGICAL: No obvious focal deficit. Awake, alert, and oriented x3. PSYCHIATRIC: Appropriate mood and affect; insight and judgment normal. Assessment/Plan Problem List: (1) Pancytopenia Status: Acute Plan: 09/08/16: tolerated venofer x1 Hgb upt o 8.4, no bleeding noted. WBC and platelet are now normal. 09/07/16: slight dip in hgb and WBC. will monitor. no bleeding 09/03/16: counts stable. 09/02/15: monitor CBC. counts stable fibrinogen trended upward. 09/01/2016 Labs showed DIC with hypofibrinogenemia, blood counts trended slightly lower. No active bleeding noted. No significant symptoms. Not able to interpret iron study due to recent PRBC transfusion. History: --multifactorial due to recent sepsis, liver failure. --has had multiple surgeries to debride the right thigh wound. likely has a consumptive process like DIC + blood loss from multiple surgeries on the wound. --has not had menstrual period during this hospital stay. --doubt primary bone marrow disorder. Assessment 30y/o female admitted with compartment syndrome, now s/p fasciotomy with chronic open wound. Hematology consulted for pancytopenia. h/o Recent sepsis with urinary tract infection and pneumonia. completed a course of antibiotic, no evidence of infection at this time. h/o Recent liver failure which has resolved. h/o Acute renal failure which has improved. Plan 1. Monitor CBC 2. supportive care Stu Felix MD Sep 08, 2016 16:41
[2016-09-08 20:22] VITALS: BP 146/97; PULSE 77; RESP 16; TEMP 97.8; O2SAT 96
[2016-09-09 00:14] VITALS: BP 126/87; PULSE 94; RESP 16; TEMP 96.9; O2SAT 97
[2016-09-09] MEDS: MORPHINE SULFATE 4 MG/ML INJ IV PRN ×4 (02:32→22:57)
[2016-09-09] MEDS: THIAMINE HCL 100 MG TAB PO SCH (07:39)
[2016-09-09] MEDS: LEVOFLOXACIN 750 MG TAB PO SCH (07:39)
[2016-09-09] MEDS: MULTIVITAMIN TAB PO SCH (07:39)
[2016-09-09] MEDS: RIFAXIMIN 550 MG TAB PO SCH ×2 (07:39→21:06)
[2016-09-09] MEDS: ASPIRIN EC 325 MG TABEC PO SCH (07:39)
[2016-09-09] MEDS: FAMOTIDINE 20 MG TAB PO SCH ×2 (07:39→21:06)
[2016-09-09] MEDS: FOLIC ACID 1 MG TAB PO SCH (07:39)
[2016-09-09] MEDS: LACTULOSE SYRUP 20 GM/30 ML CUP PO SCH ×2 (07:40→21:06)
--- NOTE | 2016-09-09 07:57 | PD.ONC.PN ---
Subjective Subjective Remarks Slight bleeding at wound site during dressing changes. no CP/SOB. Objective Data Date Time Temp Pulse Resp B/P Pulse Ox O2 Delivery O2 Flow Rate FiO2 09/09/16 00:14 96.9 94 16 126/87 97 09/08/16 20:22 97.8 77 16 146/97 96 09/08/16 16:33 18 09/08/16 16:00 97.5 87 19 121/83 99 09/08/16 12:44 18 09/08/16 12:00 97.2 110 17 131/67 97 09/09/16 09/09/16 09/09/16 07:00 15:00 23:00 Intake Total 480 ml Balance 480 ml Result Diagram: 09/08/16 0410 09/06/16 1250 Administered Medications Medications (Trade) Dose Ordered Sig/Sara Route PRN Reason Start Time Stop Time Status Last Admin Dose Admin Aspirin (Ecotrin Ec) 325 mg DAILY PO 07/26/16 09:00 09/09/16 07:39 Morphine Sulfate (Morphine Inj) 4 mg Q2H PRN IV breaktgrough PAIN 07/25/16 23:45 09/09/16 07:37 Multivitamins (Theragran) 1 tab DAILY PO 07/26/16 09:00 09/09/16 07:39 Folic Acid (Folate) 1 mg DAILY PO 07/26/16 09:00 09/09/16 07:39 Ondansetron HCl (Zofran Inj) 4 mg Q6H PRN IV NAUSEA OR VOMITING 07/26/16 08:00 07/29/16 04:18 Rifaximin (Xifaxan) 550 mg BID PO 07/26/16 10:00 09/09/16 07:39 Hydralazine HCl (Apresoline Inj) 10 mg Q1HR PRN IV PUSH SBP>160, DBP>90 07/28/16 09:30 08/01/16 09:30 Famotidine (Pepcid) 10 mg BID PO 07/29/16 09:00 09/09/16 07:39 Oxycodone HCl (Roxicodone) 5 mg Q6H PRN PO PAIN SCALE 1 TO 10 07/29/16 09:00 09/09/16 05:37 Lactulose (Lactulose Liq) 30 ml BID PO 07/30/16 21:00 09/09/16 07:40 IV Flush (NS Flush) UNSCH PRN IVF SEE PROTOCOL 07/30/16 16:15 09/08/16 16:28 Heparin Sodium (Porcine) (Heparin Inj) UNSCH PRN IVF SEE PROTOCOL 07/30/16 16:15 08/11/16 11:35 Thiamine HCl (Vitamin B1) 100 mg DAILY PO 08/02/16 11:00 09/09/16 07:39 Benzonatate (Tessalon) 100 mg TID PRN PO cough 08/13/16 19:30 08/13/16 20:26 Ferrous Sulfate (Ferrous Sulfate) 325 mg BID@, PO 08/18/16 17:00 09/08/16 16:29 Levofloxacin 750 mg 750 mg DAILY PO 09/03/16 09:00 09/09/16 07:39 Gentamicin Sulfate/ Clindamycin Phosphate/ Polymyxin B Sulfate/Sterile Water (Gentamicin Inj/ Cleocin Inj/ Aerosporin Inj/ Sterile Water For Irr Btl) 250.9167 ml @ 0 mls/ hr Q12H IRRIGATION 09/07/16 14:00 09/08/16 03:42 Objective Remarks GENERAL: Well-nourished, well-developed patient. SKIN: Warm and dry. HEAD: Normocephalic. EYES: No scleral icterus. No injection or drainage. NECK: Supple, trachea midline. No JVD or lymphadenopathy. LYMPHATIC: No adenopathy. CARDIOVASCULAR: Regular rate and rhythm without murmurs. RESPIRATORY: Breath sounds equal bilaterally. No accessory muscle use. GASTROINTESTINAL: Abdomen soft, non-tender, nondistended. EXTREMITIES: No cyanosis, or edema. Right thigh dressing no significant blood noted. MUSCULOSKELETAL: Adequate muscle tone. NEUROLOGICAL: No obvious focal deficit. Awake, alert, and oriented x3. PSYCHIATRIC: Appropriate mood and affect; insight and judgment normal. Assessment/Plan Problem List: (1) Pancytopenia Status: Acute Plan: 09/08/16: tolerated venofer x1 Hgb upt o 8.4, no bleeding noted. WBC and platelet are now normal. 09/07/16: slight dip in hgb and WBC. will monitor. no bleeding 09/03/16: counts stable. 09/02/15: monitor CBC. counts stable fibrinogen trended upward. 09/01/2016 Labs showed DIC with hypofibrinogenemia, blood counts trended slightly lower. No active bleeding noted. No significant symptoms. Not able to interpret iron study due to recent PRBC transfusion. History: --multifactorial due to recent sepsis, liver failure. --has had multiple surgeries to debride the right thigh wound. likely has a consumptive process like DIC + blood loss from multiple surgeries on the wound. --has not had menstrual period during this hospital stay. --doubt primary bone marrow disorder. Assessment 30y/o female admitted with compartment syndrome, now s/p fasciotomy with chronic open wound. Hematology consulted for pancytopenia. h/o Recent sepsis with urinary tract infection and pneumonia. completed a course of antibiotic, no evidence of infection at this time. h/o Recent liver failure which has resolved. h/o Acute renal failure which has improved. Plan 1. Monitor CBC 2. Plan to give another venofer tomorrow. Stu Felix MD Sep 09, 2016 07:57
[2016-09-09 08:00] VITALS: BP 149/103; PULSE 85; RESP 17; TEMP 97.3; O2SAT 97
[2016-09-09] MEDS: CLINDAMYCIN IRRIGATION SCH (10:10)
[2016-09-09] MEDS: GENTAMICIN IRRIGATION SCH (10:10)
[2016-09-09] MEDS: [UNRECOGNIZED DRUG - OTHER] IRRIGATION SCH (10:10)
[2016-09-09] MEDS: POLYMYXIN B IRRIGATION SCH (10:10)
[2016-09-09] MEDS: FERROUS SULFATE 325 MG (65 MG ELEMENTAL IRON) TAB PO SCH ×2 (11:53→16:05)
[2016-09-09 12:00] VITALS: BP 123/83; PULSE 85; RESP 16; TEMP 97.1; O2SAT 99
--- NOTE | 2016-09-09 12:18 | HHI.PR ---
Subjective Remarks Follow-up right type compartment syndrome 09/09/16-patient seen and examine; denies any significant right lower extremity pain. Currently afebrile in no acute event overnight. Objective Vitals Vital Signs Date Time Temp Pulse Resp B/P Pulse Ox O2 Delivery O2 Flow Rate FiO2 09/09/16 12:00 97.1 85 16 123/83 99 09/09/16 08:00 97.3 85 17 149/103 97 09/09/16 00:14 96.9 94 16 126/87 97 09/08/16 20:22 97.8 77 16 146/97 96 09/08/16 16:33 18 09/08/16 16:00 97.5 87 19 121/83 99 09/08/16 12:44 18 I/O 09/08/16 09/08/16 09/08/16 09/09/16 09/09/16 09/09/16 07:00 15:00 23:00 07:00 15:00 23:00 Intake Total 380 ml 1080 ml 580 ml 480 ml Output Total 800 ml Balance 380 ml 280 ml 580 ml 480 ml Intake Oral 380 ml 1080 ml 580 ml 480 ml IV Total 0 ml 0 ml Output Urine Total 800 ml # Voids 2 2 3 # Bowel Movements 1 Result Diagram: 09/08/16 0410 09/06/16 1250 Imaging Last Impressions Liver Biopsy CT 08/13/16 0000 Signed Impressions: Service Date/Time: Saturday, August 13, 2016 12:42 - CONCLUSION: Uncomplicated CT guided biopsy. Raymundo Agarwal MD Chest X-Ray 08/09/16 0000 Signed Impressions: Service Date/Time: Tuesday, August 09, 2016 19:30 - CONCLUSION: 1. Interval placement of double-lumen central venous line. 2. Hazy opacity at the lung bases with mild blunting of the left costophrenic angle which could indicate a small effusion. Nael Zuñiga MD Catheter Placement X-Ray 07/30/16 0000 Signed Impressions: Service Date/Time: Saturday, July 30, 2016 14:14 - CONCLUSION: Uncomplicated line placement as above. Judson Cee MD Brain MRI 07/29/16 0000 Signed Impressions: Service Date/Time: July 13:34 - CONCLUSION: 1. Abnormal examination of the brain demonstrating areas of T2 signal and abnormal diffusion signal involving the globus pallidus bilaterally and the mesial temporal lobes bilaterally. Primary considerations would include carbon monoxide poisoning versus other partial anoxic brain injury. Please see above discussion. Aamir Narayanan MD Abdomen Ultrasound 07/26/16 0000 Signed Impressions: Service Date/Time: Tuesday, July 26, 2016 10:21 - CONCLUSION: 1. Small amount of free fluid adjacent to the lower poles of both kidneys. 2. Obscuration of the head of the pancreas, distal IVC and aorta due to overlying bowel gas. 3. Otherwise negative. Judson Cee MD Lower Extremity CT 07/25/16 0000 Signed Impressions: Service Date/Time: Monday, July 25, 2016 18:54 - CONCLUSION: Extensive nonspecific myositis of the right thigh, also involves gluteus medius and minimus proximally and at least medial gastrocnemius below the knee. Infectious/inflammatory and ischemic etiologies would be in the differential. No gas bubbles are seen to substantiate necrotizing fasciitis. No organized/drainable abscess. Glenroy Sheffield MD Hip and Pelvis X-Ray 07/25/16 0000 Signed Impressions: Service Date/Time: Monday, July 25, 2016 16:52 - CONCLUSION: Intact pelvis and right hip. Nonspecific surrounding soft tissue swelling Glenroy Sheffield MD Head CT 07/25/16 0000 Signed Impressions: Service Date/Time: Monday, July 25, 2016 14:38 - CONCLUSION: Negative noncontrast head CT. Glenroy Sheffield MD Chest CT 07/25/16 0000 Signed Impressions: Service Date/Time: Monday, July 25, 2016 16:37 - CONCLUSION: Focal dense consolidation right middle lobe, nonspecific but most likely infectious or inflammatory. Also a 3 mm right basilar pulmonary nodule Followup noncontrast chest CT in a few months recommended to confirm resolution/stability. Glenroy Sheffield MD Abdomen/Pelvis CT 07/25/16 0000 Signed Impressions: Service Date/Time: Monday, July 25, 2016 16:37 - CONCLUSION: 1. Fatty liver and 21 mm right ovarian cyst. Otherwise, no acute abnormality seen within the abdomen or pelvis. 2. Swollen, heterogeneous right hip musculature, primarily gluteus medius and minimus, rectus femoris and vastus lateralis and the adductor muscles. This is nonspecific but suggests a subacute hematoma of these structures. Nothing organized/measurable. 3. Chronic L5 pars defects with grade 2 L5/S1 spondylolisthesis. Glenroy Sheffield MD Objective Remarks GENERAL: NAD SKIN: Warm and dry. Dressing over right tight HEAD: Normocephalic. EYES: No scleral icterus. No injection or drainage. NECK: Supple, trachea midline. No JVD or lymphadenopathy. CARDIOVASCULAR: Regular rate and rhythm without murmurs, gallops, or rubs. RESPIRATORY: Breath sounds equal bilaterally. No accessory muscle use. GASTROINTESTINAL: Abdomen soft, non-tender, nondistended. MUSCULOSKELETAL: No cyanosis, or edema. Dressing over right tight BACK: Nontender without obvious deformity. No CVA tenderness. Procedures 08/24/2016 Washout of the right thigh removal of acellular matrix and placement of the wound VAC. 08/16/2016 Washout of the fasciotomy site with reattachment of acellular matrix and wound Vac. 08/06/2016 Washout of the fasciotomy site and placement of acellular matrix coverage with wound VAC placement. 07/26/2016 Pulse irrigation of the medial and lateral fasciotomy, closure of the medial wound, partial closure of the lateral wound and large wound Vac placement. 07/25/2016 Medial and lateral fasciotomy and compartment release of the thigh with right gluteal area. A/P Problem List: (1) Compartment syndrome of right lower extremity ICD Code: T79.A21A Status: Resolved (2) Rhabdomyolysis ICD Code: M62.82 Status: Resolved (3) Drug overdose ICD Code: T50.901A Status: Resolved (4) Acute kidney failure ICD Code: N17.9 Status: Resolved (5) Small right middle lobe consolidation Status: Resolved (6) Hip hematoma, right ICD Code: S70.01XA Status: Resolved (7) Leukopenia ICD Code: D72.819 Status: Acute (8) Anemia ICD Code: D64.9 Status: Acute Assessment and Plan 30-year-old female with - Right thigh compartment syndrome - Status post right fasciotomy and wound VAC placement by Dr. Turner - however now off VAC - Wound - culture- fasciotomy site- with Indigo, PSAE - Continue oxycodone, morphine when necessary for pain - s/p Washout of the right thigh removal of acellular matrix and placement of the wound VAC on 08/24/2016. - S/P right thigh debridement by plastic - 08/31 - S/P Possible Split thickness skin graft 09/06 -Completed Diflucan started 08/31- Indigo on culture - Completed Levaquin today- with PSAE on wound - ID ff. Plastics ff - S/P Severe sepsis-resolved - S/P Escherichia coli urinary tract infection-resolved -Pancytopenia due to sepsis, DIC. liver failure- multifactorial Macrocytic anemia - Thrombocytopenia - Symptomatic anemia- transfuse couple units PRBC since admission along with 2 pack platelets, 2 FFP 2 cryo-since admission. H&H currently stable and transfuse for hemoglobin less than 7 or patient symptomatic. Appreciate input from hematology - S/P Acute kidney injury secondary to Rhabdom and ATN - off hemodialysis and Vas-Cath removed. Appreciate input from nephrology - Acute rhabdomyolysis. Resolved -Depression- Psychiatry ff- Osborn act lifted 07/29/16 - Polysubstance abuse including cocaine/heroine - Use PRN Ativan for anxiety and oxycodone/morphine as needed for pain.- Resolved - Mild Respiratory insufficiency secondary to pneumonia/metabolic acidosis - Small consolidation right middle lobe-resolved - Right basilar pulmonary nodule 3 mm - follow-up CT chest 3 months recommended - Tobacco abuse: Counseled to quit - Sinus tachycardia- improved - NSTEMI - likely due to cocaine abuse - Hypertension: Currently normotensive however if BP elevated consider to resume amlodipine 2.5 mg daily - Transaminitis - resolved. - Hyperammonemia - resolved - likely due to rhabdomyolysis, hypotension. - CT of the abdomen and pelvis shows fatty liver/21 mm right ovarian cyst - Negative hepatitis panel - Xifaxan 550 twice a day/lactulose 30mg 3 times a day for elevated ammonia. - S/P liver biopsy 08/13/16 - showed minimal steatosis. Problem Qualifiers (1) Drug overdose: Qualified Code: T50.904A - Drug overdose, undetermined intent, initial encounter (2) Acute kidney failure: Qualified Code: N17.9 - Acute renal failure, unspecified acute renal failure type (3) Anemia: Dexter Bee MD Sep 09, 2016 12:18
[2016-09-09 18:00] VITALS: BP 133/90; PULSE 90; RESP 16; TEMP 98.3; O2SAT 98
[2016-09-09 20:00] VITALS: BP 129/94; PULSE 87; RESP 16; TEMP 97.3; O2SAT 99
[2016-09-09] MEDS: SODIUM CHLORIDE 0.9% FLUSH 5 ML FLUSH IVF PRN (21:08)
[2016-09-10] VITALS: BP 142/100; PULSE 100; RESP 16; TEMP 97.7; O2SAT 98
[2016-09-10] MEDS: GENTAMICIN IRRIGATION SCH ×2 (02:13→09:17)
[2016-09-10] MEDS: CLINDAMYCIN IRRIGATION SCH ×2 (02:13→09:17)
[2016-09-10] MEDS: [UNRECOGNIZED DRUG - OTHER] IRRIGATION SCH ×2 (02:13→09:17)
[2016-09-10] MEDS: POLYMYXIN B IRRIGATION SCH ×2 (02:13→09:17)
[2016-09-10 05:02] LABS: AUTOMATED NEUTROPHIL # 1.8 TH/MM3 (1.8-7.7); BASOPHIL # 0.1 TH/MM3 (0-0.2); BASOPHIL % 1.6 % (0.0-2.0); EOSINOPHIL # 0.1 TH/MM3 (0-0.4); EOSINOPHIL % 3.1 % (0.0-4.0); HEMO FLAGS DIFF FINAL; LYMPH % 39.1 % (9.0-44.0); LYMPHOCYTE # 1.4 TH/MM3 (1.0-4.8); MEAN CELL VOLUME 88.3 FL (80.0-100.0); MEAN CORPUSCULAR HEMOGLOBIN 30.3 PG (27.0-34.0); MEAN CORPUSCULAR HGB CONC 34.3 % (32.0-36.0); MONO % 7.1 % (0.0-8.0); NEUT % 49.1 % (16.0-70.0); PLATELET COUNT 147 TH/MM3 (150-450); RED BLOOD COUNT 2.38 MIL/MM3 (4.00-5.30); RED CELL DISTRIBUTION WIDTH 14.1 % (11.6-17.2); WHITE BLOOD COUNT 3.6 TH/MM3 (4.0-11.0)
[2016-09-10] MEDS: MORPHINE SULFATE 4 MG/ML INJ IV PRN ×3 (05:26→16:35)
[2016-09-10 08:00] VITALS: BP 131/93; PULSE 92; RESP 16; TEMP 98.2; O2SAT 99
[2016-09-10] MEDS: ASPIRIN EC 325 MG TABEC PO SCH (08:26)
[2016-09-10] MEDS: FOLIC ACID 1 MG TAB PO SCH (08:26)
[2016-09-10] MEDS: MULTIVITAMIN TAB PO SCH (08:26)
[2016-09-10] MEDS: THIAMINE HCL 100 MG TAB PO SCH (08:26)
[2016-09-10] MEDS: FAMOTIDINE 20 MG TAB PO SCH ×2 (08:26→21:06)
[2016-09-10] MEDS: RIFAXIMIN 550 MG TAB PO SCH ×2 (08:26→21:06)
[2016-09-10] MEDS: LACTULOSE SYRUP 20 GM/30 ML CUP PO SCH ×2 (08:27→21:07)
[2016-09-10] MEDS ORDERED: IRON SUCROSE 100 MG/5 ML VIAL IV PUSH ONE (08:30)
--- NOTE | 2016-09-10 09:32 | HHI.PR ---
Subjective Remarks Follow-up right type compartment syndrome 09/09/16-patient seen and examine; denies any significant right lower extremity pain. Currently afebrile in no acute event overnight. 09/10/16-patient seen and examined; afebrile and no complaint. No acute event overnight. Objective Vitals Vital Signs Date Time Temp Pulse Resp B/P Pulse Ox O2 Delivery O2 Flow Rate FiO2 09/10/16 08:00 98.2 92 16 131/93 99 09/10/16 05:31 20 09/10/16 03:11 20 09/10/16 00:00 97.7 100 16 142/100 98 09/09/16 20:00 97.3 87 16 129/94 99 09/09/16 18:00 98.3 90 16 133/90 98 09/09/16 12:00 97.1 85 16 123/83 99 I/O 09/09/16 09/09/16 09/09/16 09/10/16 09/10/16 09/10/16 07:00 15:00 23:00 07:00 15:00 23:00 Intake Total 480 ml 720 ml 240 ml 120 ml Balance 480 ml 720 ml 240 ml 120 ml Intake Oral 480 ml 720 ml 240 ml 120 ml IV Total 0 ml # Voids 3 3 2 1 # Bowel Movements 1 1 0 Result Diagram: 09/10/16 0321 09/06/16 1250 Objective Remarks GENERAL: NAD SKIN: Warm and dry. Dressing over right tight HEAD: Normocephalic. EYES: No scleral icterus. No injection or drainage. NECK: Supple, trachea midline. No JVD or lymphadenopathy. CARDIOVASCULAR: Regular rate and rhythm without murmurs, gallops, or rubs. RESPIRATORY: Breath sounds equal bilaterally. No accessory muscle use. GASTROINTESTINAL: Abdomen soft, non-tender, nondistended. MUSCULOSKELETAL: No cyanosis, or edema. Dressing over right tight BACK: Nontender without obvious deformity. No CVA tenderness. Procedures 08/24/2016 Washout of the right thigh removal of acellular matrix and placement of the wound VAC. 08/16/2016 Washout of the fasciotomy site with reattachment of acellular matrix and wound Vac. 08/06/2016 Washout of the fasciotomy site and placement of acellular matrix coverage with wound VAC placement. 07/26/2016 Pulse irrigation of the medial and lateral fasciotomy, closure of the medial wound, partial closure of the lateral wound and large wound Vac placement. 07/25/2016 Medial and lateral fasciotomy and compartment release of the thigh with right gluteal area. A/P Problem List: (1) Compartment syndrome of right lower extremity ICD Code: T79.A21A Status: Resolved (2) Rhabdomyolysis ICD Code: M62.82 Status: Resolved (3) Drug overdose ICD Code: T50.901A Status: Resolved (4) Acute kidney failure ICD Code: N17.9 Status: Resolved (5) Small right middle lobe consolidation Status: Resolved (6) Hip hematoma, right ICD Code: S70.01XA Status: Resolved (7) Leukopenia ICD Code: D72.819 Status: Acute (8) Anemia ICD Code: D64.9 Status: Acute Assessment and Plan 30-year-old female with - Right thigh compartment syndrome - Status post right fasciotomy and wound VAC placement by Dr. Turner - however now off VAC - Wound - culture- fasciotomy site- with Indigo, PSAE - Continue oxycodone, morphine when necessary for pain - s/p Washout of the right thigh removal of acellular matrix and placement of the wound VAC on 08/24/2016. - S/P right thigh debridement by plastic - 08/31 and plan for debridement at bedside tomorrow 09/11/16 - S/P Possible Split thickness skin graft 09/06 -Completed Diflucan started 08/31- Indigo on culture - s/p Levaquin 09/09/16- with PSAE on wound - ID ff. Plastics ff - S/P Severe sepsis-resolved - S/P Escherichia coli urinary tract infection-resolved -Pancytopenia due to sepsis, DIC. liver failure- multifactorial Macrocytic anemia - Thrombocytopenia - Symptomatic anemia- transfuse couple units PRBC since admission along with 2 pack platelets, 2 FFP 2 cryo-since admission. H&H currently stable and transfuse for hemoglobin less than 7 or patient symptomatic. Appreciate input from hematology - S/P Acute kidney injury secondary to Rhabdom and ATN - off hemodialysis and Vas-Cath removed. Appreciate input from nephrology - Acute rhabdomyolysis. Resolved -Depression- Psychiatry ff- Osborn act lifted 07/29/16 - Polysubstance abuse including cocaine/heroine - Use PRN Ativan for anxiety and oxycodone/morphine as needed for pain.- Resolved - Mild Respiratory insufficiency secondary to pneumonia/metabolic acidosis - Small consolidation right middle lobe-resolved - Right basilar pulmonary nodule 3 mm - follow-up CT chest 3 months recommended - Tobacco abuse: Counseled to quit - Sinus tachycardia- improved - NSTEMI - likely due to cocaine abuse - Hypertension: Currently normotensive . resume amlodipine 2.5 mg daily if BP elevated - Transaminitis - resolved. - Hyperammonemia - resolved - likely due to rhabdomyolysis, hypotension. - CT of the abdomen and pelvis shows fatty liver/21 mm right ovarian cyst - Negative hepatitis panel - Xifaxan 550 twice a day/lactulose 30mg 3 times a day for elevated ammonia. - S/P liver biopsy 08/13/16 - showed minimal steatosis. Problem Qualifiers (1) Drug overdose: Qualified Code: T50.904A - Drug overdose, undetermined intent, initial encounter (2) Acute kidney failure: Qualified Code: N17.9 - Acute renal failure, unspecified acute renal failure type (3) Anemia: Dexter Bee MD Sep 10, 2016 09:32
--- NOTE | 2016-09-10 10:14 | PD.ONC.PN ---
Subjective Subjective Remarks Afebrile overnight. Patient having some oozing from her bandages on right leg. She also c/o continued pain in right thigh. Objective Data Date Time Temp Pulse Resp B/P Pulse Ox O2 Delivery O2 Flow Rate FiO2 09/10/16 08:00 98.2 92 16 131/93 99 09/10/16 05:31 20 09/10/16 03:11 20 09/10/16 00:00 97.7 100 16 142/100 98 09/09/16 20:00 97.3 87 16 129/94 99 09/09/16 18:00 98.3 90 16 133/90 98 09/09/16 12:00 97.1 85 16 123/83 99 Result Diagram: 09/10/16 0321 09/06/16 1250 Laboratory Results Laboratory Tests Test 09/10/16 03:21 White Blood Count 3.6 TH/MM3 Red Blood Count 2.38 MIL/MM3 Hemoglobin 7.2 GM/DL Hematocrit 21.0 % Mean Corpuscular Volume 88.3 FL Mean Corpuscular Hemoglobin 30.3 PG Mean Corpuscular Hemoglobin 34.3 % Concent Red Cell Distribution Width 14.1 % Platelet Count 147 TH/MM3 Mean Platelet Volume 7.5 FL Neutrophils (%) (Auto) 49.1 % Lymphocytes (%) (Auto) 39.1 % Monocytes (%) (Auto) 7.1 % Eosinophils (%) (Auto) 3.1 % Basophils (%) (Auto) 1.6 % Neutrophils # (Auto) 1.8 TH/MM3 Lymphocytes # (Auto) 1.4 TH/MM3 Monocytes # (Auto) 0.3 TH/MM3 Eosinophils # (Auto) 0.1 TH/MM3 Basophils # (Auto) 0.1 TH/MM3 CBC Comment DIFF FINAL Differential Comment Administered Medications Medications (Trade) Dose Ordered Sig/Sara Route PRN Reason Start Time Stop Time Status Last Admin Dose Admin Aspirin (Ecotrin Ec) 325 mg DAILY PO 07/26/16 09:00 09/10/16 08:26 Morphine Sulfate (Morphine Inj) 4 mg Q2H PRN IV breaktgrough PAIN 07/25/16 23:45 09/10/16 05:26 Multivitamins (Theragran) 1 tab DAILY PO 07/26/16 09:00 09/10/16 08:26 Folic Acid (Folate) 1 mg DAILY PO 07/26/16 09:00 09/10/16 08:26 Ondansetron HCl (Zofran Inj) 4 mg Q6H PRN IV NAUSEA OR VOMITING 07/26/16 08:00 07/29/16 04:18 Rifaximin (Xifaxan) 550 mg BID PO 07/26/16 10:00 09/10/16 08:26 Hydralazine HCl (Apresoline Inj) 10 mg Q1HR PRN IV PUSH SBP>160, DBP>90 07/28/16 09:30 08/01/16 09:30 Famotidine (Pepcid) 10 mg BID PO 07/29/16 09:00 09/10/16 08:26 Oxycodone HCl (Roxicodone) 5 mg Q6H PRN PO PAIN SCALE 1 TO 10 07/29/16 09:00 09/10/16 08:26 Lactulose (Lactulose Liq) 30 ml BID PO 07/30/16 21:00 09/10/16 08:27 IV Flush (NS Flush) UNSCH PRN IVF SEE PROTOCOL 07/30/16 16:15 09/09/16 21:08 Heparin Sodium (Porcine) (Heparin Inj) UNSCH PRN IVF SEE PROTOCOL 07/30/16 16:15 08/11/16 11:35 Thiamine HCl (Vitamin B1) 100 mg DAILY PO 08/02/16 11:00 09/10/16 08:26 Benzonatate (Tessalon) 100 mg TID PRN PO cough 08/13/16 19:30 08/13/16 20:26 Ferrous Sulfate 325 mg 325 mg BID@,17 PO 08/18/16 17:00 09/09/16 16:05 Gentamicin Sulfate/ Clindamycin Phosphate/ Polymyxin B Sulfate/Sterile Water (Gentamicin Inj/ Cleocin Inj/ Aerosporin Inj/ Sterile Water For Irr Btl) 250.9167 ml @ 0 mls/ hr Q12H IRRIGATION 09/07/16 14:00 09/10/16 02:13 Objective Remarks GENERAL: Young woman, sitting up in bed in nad. SKIN: Warm and dry. HEAD: Normocephalic. EYES: No injection or drainage. NECK: Supple, trachea midline. CARDIOVASCULAR: +S1/S2 RESPIRATORY: Breath sounds equal bilaterally. No accessory muscle use. GASTROINTESTINAL: Abdomen soft, non-tender, nondistended. EXTREMITIES: No cyanosis. Right thigh with multiple bandages, blood spotting noted on bandages. NEUROLOGICAL: awake and alert, normal speech. moving all extremities. Assessment/Plan Problem List: (1) Pancytopenia Status: Acute Plan: 09/10/16: will give second dose of Venofer 200mg today. monitor CBC 09/08/16: tolerated venofer x1 Hgb upt o 8.4, no bleeding noted. WBC and platelet are now normal. 09/07/16: slight dip in hgb and WBC. will monitor. no bleeding 09/03/16: counts stable. 09/02/15: monitor CBC. counts stable fibrinogen trended upward. 09/01/2016 Labs showed DIC with hypofibrinogenemia, blood counts trended slightly lower. No active bleeding noted. No significant symptoms. Not able to interpret iron study due to recent PRBC transfusion. History: --multifactorial due to recent sepsis, liver failure. --has had multiple surgeries to debride the right thigh wound. likely has a consumptive process like DIC + blood loss from multiple surgeries on the wound. --has not had menstrual period during this hospital stay. --doubt primary bone marrow disorder. Assessment 30y/o female admitted with compartment syndrome, now s/p fasciotomy with chronic open wound. Hematology consulted for pancytopenia. h/o Recent sepsis with urinary tract infection and pneumonia. completed a course of antibiotic, no evidence of infection at this time. h/o Recent liver failure which has resolved. h/o Acute renal failure which has improved. Plan 1. Monitor CBC 2. give Venofer 200mg x 1 today Attending Statement The exam, history, and the medical decision-making described in the above note were completed with the assistance of the mid-level provider. I reviewed and agree with the findings presented. I attest that I had a [id number] encounter with the patient on the same day, and personally performed and documented my assessment and findings in the medical record. Mild oozing from right thigh wound. Still has low grade DIC. Counts trended lower again.. Will give another venofer today. Jeanna Lobo Sep 10, 2016 10:14 Stu Felix MD Sep 10, 2016 17:21
[2016-09-10 10:40] LABS: APTT (PATIENT) 27.2 SEC (24.3-30.1); INTERNATIONAL NORMALIZED RATIO 1.1 RATIO
[2016-09-10] MEDS: FERROUS SULFATE 325 MG (65 MG ELEMENTAL IRON) TAB PO SCH ×2 (11:26→16:35)
[2016-09-10 12:00] VITALS: BP 123/83; PULSE 113; RESP 16; TEMP 99; O2SAT 97
[2016-09-10 16:00] VITALS: BP 141/92; PULSE 87; RESP 17; TEMP 98.8; O2SAT 99
[2016-09-10 20:00] VITALS: BP 128/90; PULSE 86; RESP 16; TEMP 98.2; O2SAT 97
[2016-09-10 23:37] VITALS: BP 126/90; PULSE 102; RESP 16; TEMP 98.4; O2SAT 96
[2016-09-11] MEDS: GENTAMICIN IRRIGATION SCH ×3 (02:00→20:29)
[2016-09-11] MEDS: POLYMYXIN B IRRIGATION SCH ×3 (02:00→20:29)
[2016-09-11] MEDS: CLINDAMYCIN IRRIGATION SCH ×3 (02:00→20:29)
[2016-09-11] MEDS: [UNRECOGNIZED DRUG - OTHER] IRRIGATION SCH ×3 (02:00→20:29)
[2016-09-11] MEDS: MORPHINE SULFATE 4 MG/ML INJ IV PRN ×2 (03:33→17:51)
[2016-09-11 08:00] VITALS: BP 136/94; PULSE 90; RESP 16; TEMP 99.7; O2SAT 99
[2016-09-11] MEDS: FAMOTIDINE 20 MG TAB PO SCH ×2 (08:22→20:29)
[2016-09-11] MEDS: THIAMINE HCL 100 MG TAB PO SCH (08:22)
[2016-09-11] MEDS: ASPIRIN EC 325 MG TABEC PO SCH (08:22)
[2016-09-11] MEDS: RIFAXIMIN 550 MG TAB PO SCH ×2 (08:22→20:29)
[2016-09-11] MEDS: FOLIC ACID 1 MG TAB PO SCH (08:22)
[2016-09-11] MEDS: MULTIVITAMIN TAB PO SCH (08:22)
[2016-09-11] MEDS: LACTULOSE SYRUP 20 GM/30 ML CUP PO SCH ×2 (08:22→20:29)
--- NOTE | 2016-09-11 09:50 | HHI.PR ---
Subjective Remarks Follow-up right thigh compartment syndrome 09/09/16-patient seen and examine; denies any significant right lower extremity pain. Currently afebrile in no acute event overnight. 09/10/16-patient seen and examined; afebrile and no complaint. No acute event overnight 09/11/16-patient seen and examined, H&H dropping down to 7.2/21.0. Denies any acute event overnight Objective Vitals Vital Signs Date Time Temp Pulse Resp B/P Pulse Ox O2 Delivery O2 Flow Rate FiO2 09/11/16 08:00 99.7 90 16 136/94 99 09/10/16 23:37 98.4 102 16 126/90 96 09/10/16 20:00 98.2 86 16 128/90 97 09/10/16 16:40 20 09/10/16 16:00 98.8 87 17 141/92 99 09/10/16 15:34 18 09/10/16 12:00 99.0 113 16 123/83 97 I/O 09/10/16 09/10/16 09/10/16 09/11/16 09/11/16 09/11/16 07:00 15:00 23:00 07:00 15:00 23:00 Intake Total 120 ml 360 ml 240 ml 120 ml Balance 120 ml 360 ml 240 ml 120 ml Intake Oral 120 ml 360 ml 240 ml 120 ml IV Total 0 ml # Voids 1 2 1 1 # Bowel Movements 0 1 0 0 # Sanitary Pads 1 Pads Result Diagram: 09/10/16 0321 Objective Remarks GENERAL: NAD SKIN: Warm and dry. Dressing over right tight HEAD: Normocephalic. EYES: No scleral icterus. No injection or drainage. NECK: Supple, trachea midline. No JVD or lymphadenopathy. CARDIOVASCULAR: Regular rate and rhythm without murmurs, gallops, or rubs. RESPIRATORY: Breath sounds equal bilaterally. No accessory muscle use. GASTROINTESTINAL: Abdomen soft, non-tender, nondistended. MUSCULOSKELETAL: No cyanosis, or edema. Dressing over right tight BACK: Nontender without obvious deformity. No CVA tenderness. Procedures 08/24/2016 Washout of the right thigh removal of acellular matrix and placement of the wound VAC. 08/16/2016 Washout of the fasciotomy site with reattachment of acellular matrix and wound Vac. 08/06/2016 Washout of the fasciotomy site and placement of acellular matrix coverage with wound VAC placement. 07/26/2016 Pulse irrigation of the medial and lateral fasciotomy, closure of the medial wound, partial closure of the lateral wound and large wound Vac placement. 07/25/2016 Medial and lateral fasciotomy and compartment release of the thigh with right gluteal area. A/P Problem List: (1) Compartment syndrome of right lower extremity ICD Code: T79.A21A Status: Resolved (2) Rhabdomyolysis ICD Code: M62.82 Status: Resolved (3) Drug overdose ICD Code: T50.901A Status: Resolved (4) Acute kidney failure ICD Code: N17.9 Status: Resolved (5) Small right middle lobe consolidation Status: Resolved (6) Hip hematoma, right ICD Code: S70.01XA Status: Resolved (7) Leukopenia ICD Code: D72.819 Status: Acute (8) Anemia ICD Code: D64.9 Status: Acute Assessment and Plan 30-year-old female with - Right thigh compartment syndrome - Status post right fasciotomy and wound VAC placement by Dr. Turner - however now off VAC - Wound - culture- fasciotomy site- with Indigo, PSAE - Continue oxycodone, morphine when necessary for pain - s/p Washout of the right thigh removal of acellular matrix and placement of the wound VAC on 08/24/2016. - S/P right thigh debridement by plastic - 08/31 and plan for debridement at bedside today 09/11/16 - S/P Possible Split thickness skin graft 09/06 -Completed Diflucan started 08/31- Indigo on culture - s/p Levaquin 09/09/16- with PSAE on wound - ID ff. Plastics ff - S/P Severe sepsis-resolved - S/P Escherichia coli urinary tract infection-resolved -Pancytopenia due to sepsis, DIC. liver failure- multifactorial Macrocytic anemia - Thrombocytopenia - Symptomatic anemia- transfuse couple units PRBC since admission along with 2 pack platelets, 2 FFP 2 cryo-since admission. H&H currently stable and transfuse for hemoglobin less than 7 or patient symptomatic. Appreciate input from hematology - S/P Acute kidney injury secondary to Rhabdom and ATN - off hemodialysis and Vas-Cath removed. Appreciate input from nephrology - Acute rhabdomyolysis. Resolved -Depression- Psychiatry ff- Osborn act lifted 07/29/16 - Polysubstance abuse including cocaine/heroine - Use PRN Ativan for anxiety and oxycodone/morphine as needed for pain.- Resolved - Mild Respiratory insufficiency secondary to pneumonia/metabolic acidosis - Small consolidation right middle lobe-resolved - Right basilar pulmonary nodule 3 mm - follow-up CT chest 3 months recommended - Tobacco abuse: Counseled to quit - Sinus tachycardia- improved - NSTEMI - likely due to cocaine abuse - Hypertension: Currently normotensive . resume amlodipine 2.5 mg daily if BP elevated - Transaminitis - resolved. - Hyperammonemia - resolved - likely due to rhabdomyolysis, hypotension. - CT of the abdomen and pelvis shows fatty liver/21 mm right ovarian cyst - Negative hepatitis panel - Xifaxan 550 twice a day/lactulose 30mg 3 times a day for elevated ammonia. - S/P liver biopsy 08/13/16 - showed minimal steatosis. Anemia of chronic disease: Slow dropping of H&H down to 7.2/21.0 therefore will transfuse 1 unit packed red blood cell today 09/11/16 and monitor H&H Problem Qualifiers (1) Drug overdose: Qualified Code: T50.904A - Drug overdose, undetermined intent, initial encounter (2) Acute kidney failure: Qualified Code: N17.9 - Acute renal failure, unspecified acute renal failure type (3) Anemia: Dexter Bee MD Sep 11, 2016 09:50
[2016-09-11] MEDS ORDERED: diphenhydrAMINE HCL 25 MG CAP PO PRN (10:00)
[2016-09-11] MEDS ORDERED: SODIUM CHLOR 0.9% 250 ML INJ 250 ML IV ONE (10:00)
[2016-09-11] MEDS ORDERED: ACETAMINOPHEN 325 MG TAB PO PRN (10:00)
[2016-09-11 12:00] VITALS: BP 133/92; PULSE 96; RESP 16; TEMP 99.1; O2SAT 99
[2016-09-11] MEDS: FERROUS SULFATE 325 MG (65 MG ELEMENTAL IRON) TAB PO SCH ×2 (12:15→16:15)
--- NOTE | 2016-09-11 14:12 | PD.PLAS.PN ---
Subjective Remarks Doing well Dressing changed right thigh - Xeroform adherent to the skin graft, dry. Graft should be well taken - will give another week before removing the xeroform. OK to DC home - I will see her in office for FU Do not change dressing at home, keep dry, Reinforce or change only the outer dressing if there is any soiling. Vital Signs Date Time Temp Pulse Resp B/P Pulse Ox O2 Delivery O2 Flow Rate FiO2 09/11/16 12:00 99.1 96 16 133/92 99 09/11/16 09:22 17 09/11/16 08:00 99.7 90 16 136/94 99 09/10/16 23:37 98.4 102 16 126/90 96 09/10/16 20:00 98.2 86 16 128/90 97 09/10/16 16:40 20 09/10/16 16:00 98.8 87 17 141/92 99 I/O 09/10/16 09/10/16 09/10/16 09/11/16 09/11/16 09/11/16 07:00 15:00 23:00 07:00 15:00 23:00 Intake Total 120 ml 360 ml 240 ml 120 ml Balance 120 ml 360 ml 240 ml 120 ml Intake Oral 120 ml 360 ml 240 ml 120 ml IV Total 0 ml # Voids 1 2 1 1 # Bowel Movements 0 1 0 0 # Sanitary Pads 1 Pads Laboratory Tests Test 09/11/16 12:04 Blood Type O POSITIVE Antibody Screen NEGATIVE Crossmatch Leukocyte-Reduced Red Blood Cells Blood Bank Comment Result Diagram: 09/10/16 0321 Alejandro Guerra MD Sep 11, 2016 14:12
[2016-09-11 14:15] VITALS: BP 125/91; PULSE 96; RESP 18; TEMP 99.3; O2SAT 97
[2016-09-11 14:35] VITALS: BP 127/85; PULSE 86; RESP 16; TEMP 99; O2SAT 97
[2016-09-11 16:00] VITALS: BP 134/87; PULSE 70; RESP 18; TEMP 98.9; O2SAT 100
[2016-09-11 20:00] VITALS: BP 140/90; PULSE 85; RESP 19; TEMP 98.7; O2SAT 99
[2016-09-12] VITALS: BP 146/97; PULSE 81; RESP 18; TEMP 98.6; O2SAT 100
[2016-09-12 05:49] LABS: AUTOMATED NEUTROPHIL # 3.1 TH/MM3 (1.8-7.7); BASOPHIL % 0.3 % (0.0-2.0); EOSINOPHIL # 0.1 TH/MM3 (0-0.4); EOSINOPHIL % 2.3 % (0.0-4.0); HEMO FLAGS DIFF FINAL; LYMPH % 27.1 % (9.0-44.0); LYMPHOCYTE # 1.3 TH/MM3 (1.0-4.8); MEAN CELL VOLUME 87.4 FL (80.0-100.0); MEAN CORPUSCULAR HEMOGLOBIN 30.1 PG (27.0-34.0); MEAN CORPUSCULAR HGB CONC 34.4 % (32.0-36.0); MONO % 7.4 % (0.0-8.0); NEUT % 62.9 % (16.0-70.0); PLATELET COUNT 138 TH/MM3 (150-450); RED BLOOD COUNT 3.21 MIL/MM3 (4.00-5.30); WHITE BLOOD COUNT 4.9 TH/MM3 (4.0-11.0)
[2016-09-12] MEDS: MORPHINE SULFATE 4 MG/ML INJ IV PRN ×3 (06:15→20:13)
[2016-09-12 08:00] VITALS: BP 130/102; PULSE 77; RESP 18; TEMP 98.2; O2SAT 100
[2016-09-12] MEDS: ASPIRIN EC 325 MG TABEC PO SCH (09:53)
[2016-09-12] MEDS: LACTULOSE SYRUP 20 GM/30 ML CUP PO SCH ×2 (09:53→20:02)
[2016-09-12] MEDS: FOLIC ACID 1 MG TAB PO SCH (09:54)
[2016-09-12] MEDS: THIAMINE HCL 100 MG TAB PO SCH (09:54)
[2016-09-12] MEDS: RIFAXIMIN 550 MG TAB PO SCH ×2 (09:54→20:01)
[2016-09-12] MEDS: MULTIVITAMIN TAB PO SCH (09:54)
[2016-09-12] MEDS: FAMOTIDINE 20 MG TAB PO SCH ×2 (09:54→20:02)
--- NOTE | 2016-09-12 10:15 | HHI.PR ---
Subjective Remarks Follow-up right thigh compartment syndrome 09/09/16-patient seen and examine; denies any significant right lower extremity pain. Currently afebrile in no acute event overnight. 09/10/16-patient seen and examined; afebrile and no complaint. No acute event overnight 09/11/16-patient seen and examined, H&H dropping down to 7.2/21.0. Denies any acute event overnight 09/12/16-patient seen and examined. She was transfused 1 unit packed red blood cells yesterday. Stable this morning. Objective Vitals Vital Signs Date Time Temp Pulse Resp B/P Pulse Ox O2 Delivery O2 Flow Rate FiO2 09/12/16 00:00 98.6 81 18 146/97 100 09/11/16 20:00 98.7 85 19 140/90 99 09/11/16 17:56 18 09/11/16 16:00 98.9 70 18 134/87 100 09/11/16 15:25 18 09/11/16 14:35 99.0 86 16 127/85 97 09/11/16 14:15 99.3 96 18 125/91 97 09/11/16 12:00 99.1 96 16 133/92 99 I/O 09/11/16 09/11/16 09/11/16 09/12/16 09/12/16 09/12/16 07:00 15:00 23:00 07:00 15:00 23:00 Intake Total 120 ml 480 ml 240 ml 240 ml Output Total 300 ml 300 ml Balance 120 ml 480 ml -60 ml -60 ml Intake Oral 120 ml 480 ml 240 ml 240 ml IV Total 0 ml 0 ml Output Urine Total 300 ml 300 ml # Voids 1 2 # Bowel Movements 0 0 0 # Sanitary Pads 1 Pads Result Diagram: 09/12/16 0449 Objective Remarks GENERAL: NAD SKIN: Warm and dry. Dressing over right tight HEAD: Normocephalic. EYES: No scleral icterus. No injection or drainage. NECK: Supple, trachea midline. No JVD or lymphadenopathy. CARDIOVASCULAR: Regular rate and rhythm without murmurs, gallops, or rubs. RESPIRATORY: Breath sounds equal bilaterally. No accessory muscle use. GASTROINTESTINAL: Abdomen soft, non-tender, nondistended. MUSCULOSKELETAL: No cyanosis, or edema. Dressing over right tight BACK: Nontender without obvious deformity. No CVA tenderness. Procedures 08/24/2016 Washout of the right thigh removal of acellular matrix and placement of the wound VAC. 08/16/2016 Washout of the fasciotomy site with reattachment of acellular matrix and wound Vac. 08/06/2016 Washout of the fasciotomy site and placement of acellular matrix coverage with wound VAC placement. 07/26/2016 Pulse irrigation of the medial and lateral fasciotomy, closure of the medial wound, partial closure of the lateral wound and large wound Vac placement. 07/25/2016 Medial and lateral fasciotomy and compartment release of the thigh with right gluteal area. A/P Problem List: (1) Compartment syndrome of right lower extremity ICD Code: T79.A21A Status: Resolved (2) Rhabdomyolysis ICD Code: M62.82 Status: Resolved (3) Drug overdose ICD Code: T50.901A Status: Resolved (4) Acute kidney failure ICD Code: N17.9 Status: Resolved (5) Small right middle lobe consolidation Status: Resolved (6) Hip hematoma, right ICD Code: S70.01XA Status: Resolved (7) Leukopenia ICD Code: D72.819 Status: Acute (8) Anemia ICD Code: D64.9 Status: Acute Assessment and Plan 30-year-old female with - Right thigh compartment syndrome - Status post right fasciotomy and wound VAC placement by Dr. Turner - however now off VAC - Wound - culture- fasciotomy site- with Indigo, PSAE - Continue oxycodone, morphine when necessary for pain - s/p Washout of the right thigh removal of acellular matrix and placement of the wound VAC on 08/24/2016. - S/P right thigh debridement by plastic - 08/31 and plan for debridement at bedside this week - S/P Possible Split thickness skin graft 09/06 -Completed Diflucan started 08/31- Indigo on culture - s/p Levaquin 09/09/16- with PSAE on wound - ID ff. Plastics ff - S/P Severe sepsis-resolved - S/P Escherichia coli urinary tract infection-resolved -Pancytopenia due to sepsis, DIC. liver failure- multifactorial Macrocytic anemia - Thrombocytopenia - Symptomatic anemia- transfused couple units PRBC since admission along with 2 pack platelets, 2 FFP 2 cryo-since admission. Transfused 1 unit packed red blood cell yesterday 09/11/16. H&H currently stable and transfuse for hemoglobin less than 7 or patient symptomatic. Appreciate input from hematology - S/P Acute kidney injury secondary to Rhabdom and ATN - off hemodialysis and Vas-Cath removed. Appreciate input from nephrology - Acute rhabdomyolysis. Resolved -Depression- Psychiatry ff- Osborn act lifted 07/29/16 - Polysubstance abuse including cocaine/heroine - Use PRN Ativan for anxiety and oxycodone/morphine as needed for pain.- Resolved - Mild Respiratory insufficiency secondary to pneumonia/metabolic acidosis - Small consolidation right middle lobe-resolved - Right basilar pulmonary nodule 3 mm - follow-up CT chest 3 months recommended - Tobacco abuse: Counseled to quit - Sinus tachycardia- improved - NSTEMI - likely due to cocaine abuse - Hypertension: Currently normotensive . resume amlodipine 2.5 mg daily if BP elevated - Transaminitis - resolved. - Hyperammonemia - resolved - likely due to rhabdomyolysis, hypotension. - CT of the abdomen and pelvis shows fatty liver/21 mm right ovarian cyst - Negative hepatitis panel - Xifaxan 550 twice a day/lactulose 30mg 3 times a day for elevated ammonia. - S/P liver biopsy 08/13/16 - showed minimal steatosis. Problem Qualifiers (1) Drug overdose: Qualified Code: T50.904A - Drug overdose, undetermined intent, initial encounter (2) Acute kidney failure: Qualified Code: N17.9 - Acute renal failure, unspecified acute renal failure type (3) Anemia: Dexter Bee MD Sep 12, 2016 10:15
[2016-09-12 12:00] VITALS: BP 130/90; PULSE 88; RESP 18; TEMP 97.7; O2SAT 99
[2016-09-12] MEDS: FERROUS SULFATE 325 MG (65 MG ELEMENTAL IRON) TAB PO SCH ×2 (12:51→16:48)
[2016-09-12] MEDS: POLYMYXIN B IRRIGATION SCH (13:27)
[2016-09-12] MEDS: CLINDAMYCIN IRRIGATION SCH (13:27)
[2016-09-12] MEDS: GENTAMICIN IRRIGATION SCH (13:27)
[2016-09-12] MEDS: [UNRECOGNIZED DRUG - OTHER] IRRIGATION SCH (13:27)
[2016-09-12 16:00] VITALS: BP 138/94; PULSE 74; RESP 18; TEMP 98.2; O2SAT 100
[2016-09-12 20:00] VITALS: BP 129/100; PULSE 81; RESP 18; TEMP 98.6; O2SAT 98
[2016-09-13] VITALS: BP 124/94; PULSE 91; RESP 18; TEMP 98.4; O2SAT 99
[2016-09-13] MEDS: POLYMYXIN B IRRIGATION SCH ×2 (00:12→14:00)
[2016-09-13] MEDS: [UNRECOGNIZED DRUG - OTHER] IRRIGATION SCH ×2 (00:12→14:00)
[2016-09-13] MEDS: CLINDAMYCIN IRRIGATION SCH ×2 (00:12→14:00)
[2016-09-13] MEDS: GENTAMICIN IRRIGATION SCH ×2 (00:12→14:00)
[2016-09-13] MEDS: MORPHINE SULFATE 4 MG/ML INJ IV PRN ×4 (02:15→21:09)
[2016-09-13 08:00] VITALS: BP 134/83; PULSE 76; RESP 16; TEMP 96.8; O2SAT 98
[2016-09-13] MEDS: RIFAXIMIN 550 MG TAB PO SCH ×2 (09:00→21:09)
[2016-09-13] MEDS: MULTIVITAMIN TAB PO SCH (09:00)
[2016-09-13] MEDS: FOLIC ACID 1 MG TAB PO SCH (09:00)
[2016-09-13] MEDS: ASPIRIN EC 325 MG TABEC PO SCH (09:00)
[2016-09-13] MEDS: THIAMINE HCL 100 MG TAB PO SCH (09:00)
[2016-09-13] MEDS: FAMOTIDINE 20 MG TAB PO SCH ×2 (09:00→21:09)
[2016-09-13] MEDS: LACTULOSE SYRUP 20 GM/30 ML CUP PO SCH ×2 (09:00→21:09)
--- NOTE | 2016-09-13 10:18 | PD.ONC.PN ---
Subjective Subjective Remarks Afebrile overnight. Patient resting comfortably. No bleeding. Objective Data Date Time Temp Pulse Resp B/P Pulse Ox O2 Delivery O2 Flow Rate FiO2 09/13/16 08:00 96.8 76 16 134/83 98 09/13/16 00:00 98.4 91 18 124/94 99 09/12/16 20:00 98.6 81 18 129/100 98 09/12/16 16:00 98.2 74 18 138/94 100 09/12/16 12:00 97.7 88 18 130/90 99 09/13/16 09/13/16 09/13/16 07:00 15:00 23:00 Intake Total 240 ml Output Total 300 ml Balance -60 ml Result Diagram: 09/12/16 0449 Administered Medications Medications (Trade) Dose Ordered Sig/Sara Route PRN Reason Start Time Stop Time Status Last Admin Dose Admin Aspirin (Ecotrin Ec) 325 mg DAILY PO 07/26/16 09:00 09/13/16 09:00 Morphine Sulfate (Morphine Inj) 4 mg Q2H PRN IV breaktgrough PAIN 07/25/16 23:45 09/13/16 09:07 Multivitamins (Theragran) 1 tab DAILY PO 07/26/16 09:00 09/13/16 09:00 Folic Acid (Folate) 1 mg DAILY PO 07/26/16 09:00 09/13/16 09:00 Ondansetron HCl (Zofran Inj) 4 mg Q6H PRN IV NAUSEA OR VOMITING 07/26/16 08:00 07/29/16 04:18 Rifaximin (Xifaxan) 550 mg BID PO 07/26/16 10:00 09/13/16 09:00 Hydralazine HCl (Apresoline Inj) 10 mg Q1HR PRN IV PUSH SBP>160, DBP>90 07/28/16 09:30 08/01/16 09:30 Famotidine (Pepcid) 10 mg BID PO 07/29/16 09:00 09/13/16 09:00 Oxycodone HCl (Roxicodone) 5 mg Q6H PRN PO PAIN SCALE 1 TO 10 07/29/16 09:00 09/13/16 06:08 Lactulose (Lactulose Liq) 30 ml BID PO 07/30/16 21:00 09/13/16 09:00 IV Flush (NS Flush) UNSCH PRN IVF SEE PROTOCOL 07/30/16 16:15 09/09/16 21:08 Heparin Sodium (Porcine) (Heparin Inj) UNSCH PRN IVF SEE PROTOCOL 07/30/16 16:15 08/11/16 11:35 Thiamine HCl (Vitamin B1) 100 mg DAILY PO 08/02/16 11:00 09/13/16 09:00 Benzonatate (Tessalon) 100 mg TID PRN PO cough 08/13/16 19:30 08/13/16 20:26 Ferrous Sulfate 325 mg 325 mg BID@12,17 PO 08/18/16 17:00 09/12/16 16:48 Gentamicin Sulfate/ Clindamycin Phosphate/ Polymyxin B Sulfate/Sterile Water (Gentamicin Inj/ Cleocin Inj/ Aerosporin Inj/ Sterile Water For Irr Btl) 250.9167 ml @ 0 mls/ hr Q12H IRRIGATION 09/07/16 14:00 09/10/16 02:13 Objective Remarks GENERAL: Young woman, lying in bed in nad. SKIN: Warm and dry. bandages in place, right thigh, c/d/i. HEAD: Normocephalic. EYES: No injection or drainage. NECK: Supple, trachea midline. CARDIOVASCULAR: +S1/S2 RESPIRATORY: Breath sounds equal bilaterally. No accessory muscle use. GASTROINTESTINAL: Abdomen soft, non-tender, nondistended. EXTREMITIES: No cyanosis. NEUROLOGICAL: awake, alert and oriented. able to move extremities. Assessment/Plan Problem List: (1) Pancytopenia Status: Acute Plan: 09/13/16: counts have remained stable. clear for d/c 09/10/16: will give second dose of Venofer 200mg today. monitor CBC 09/08/16: tolerated venofer x1 Hgb upt o 8.4, no bleeding noted. WBC and platelet are now normal. 09/07/16: slight dip in hgb and WBC. will monitor. no bleeding 09/03/16: counts stable. 09/02/15: monitor CBC. counts stable fibrinogen trended upward. 09/01/2016 Labs showed DIC with hypofibrinogenemia, blood counts trended slightly lower. No active bleeding noted. No significant symptoms. Not able to interpret iron study due to recent PRBC transfusion. History: --multifactorial due to recent sepsis, liver failure. --has had multiple surgeries to debride the right thigh wound. likely has a consumptive process like DIC + blood loss from multiple surgeries on the wound. --has not had menstrual period during this hospital stay. --doubt primary bone marrow disorder. Assessment 30y/o female admitted with compartment syndrome, now s/p fasciotomy with chronic open wound. Hematology consulted for pancytopenia. h/o Recent sepsis with urinary tract infection and pneumonia. completed a course of antibiotic, no evidence of infection at this time. h/o Recent liver failure which has resolved. h/o Acute renal failure which has improved. Plan 1. Monitor CBC 2. clear for d/c Attending Statement The exam, history, and the medical decision-making described in the above note were completed with the assistance of the mid-level provider. I reviewed and agree with the findings presented. I attest that I had a [id number] encounter with the patient on the same day, and personally performed and documented my assessment and findings in the medical record. No bleeding. Hgb up to 9.6. Continue iron supplement. Can be d/c from hematology standpoint. Jeanna Lobo Sep 13, 2016 10:18 Stu Felix MD Sep 13, 2016 14:48
--- NOTE | 2016-09-13 10:50 | HHI.PR ---
Subjective Remarks Follow-up right thigh compartment syndrome 09/09/16-patient seen and examine; denies any significant right lower extremity pain. Currently afebrile in no acute event overnight. 09/10/16-patient seen and examined; afebrile and no complaint. No acute event overnight 09/11/16-patient seen and examined, H&H dropping down to 7.2/21.0. Denies any acute event overnight 09/12/16-patient seen and examined. She was transfused 1 unit packed red blood cells yesterday. Stable this morning. 09/13/16-patient seen and examined. NO complaint and stable. Afebrile Objective Vitals Vital Signs Date Time Temp Pulse Resp B/P Pulse Ox O2 Delivery O2 Flow Rate FiO2 09/13/16 08:00 96.8 76 16 134/83 98 09/13/16 00:00 98.4 91 18 124/94 99 09/12/16 20:00 98.6 81 18 129/100 98 09/12/16 16:00 98.2 74 18 138/94 100 09/12/16 12:00 97.7 88 18 130/90 99 I/O 09/12/16 09/12/16 09/12/16 09/13/16 09/13/16 09/13/16 07:00 15:00 23:00 07:00 15:00 23:00 Intake Total 240 ml 240 ml 240 ml 240 ml Output Total 300 ml 350 ml 300 ml 300 ml Balance -60 ml -110 ml -60 ml -60 ml Intake Oral 240 ml 240 ml 240 ml 240 ml IV Total 0 ml 0 ml 0 ml Output Urine Total 300 ml 350 ml 300 ml 300 ml # Bowel Movements 0 0 1 0 Result Diagram: 09/12/16 0449 Objective Remarks GENERAL: NAD SKIN: Warm and dry. Dressing over right tight HEAD: Normocephalic. EYES: No scleral icterus. No injection or drainage. NECK: Supple, trachea midline. No JVD or lymphadenopathy. CARDIOVASCULAR: Regular rate and rhythm without murmurs, gallops, or rubs. RESPIRATORY: Breath sounds equal bilaterally. No accessory muscle use. GASTROINTESTINAL: Abdomen soft, non-tender, nondistended. MUSCULOSKELETAL: No cyanosis, or edema. Dressing over right tight BACK: Nontender without obvious deformity. No CVA tenderness. Procedures 08/24/2016 Washout of the right thigh removal of acellular matrix and placement of the wound VAC. 08/16/2016 Washout of the fasciotomy site with reattachment of acellular matrix and wound Vac. 08/06/2016 Washout of the fasciotomy site and placement of acellular matrix coverage with wound VAC placement. 07/26/2016 Pulse irrigation of the medial and lateral fasciotomy, closure of the medial wound, partial closure of the lateral wound and large wound Vac placement. 07/25/2016 Medial and lateral fasciotomy and compartment release of the thigh with right gluteal area. A/P Problem List: (1) Compartment syndrome of right lower extremity ICD Code: T79.A21A Status: Resolved (2) Rhabdomyolysis ICD Code: M62.82 Status: Resolved (3) Drug overdose ICD Code: T50.901A Status: Resolved (4) Acute kidney failure ICD Code: N17.9 Status: Resolved (5) Small right middle lobe consolidation Status: Resolved (6) Hip hematoma, right ICD Code: S70.01XA Status: Resolved (7) Leukopenia ICD Code: D72.819 Status: Acute (8) Anemia ICD Code: D64.9 Status: Acute Assessment and Plan 30-year-old female with - Right thigh compartment syndrome - Status post right fasciotomy and wound VAC placement by Dr. Turner - however now off VAC - Wound - culture- fasciotomy site- with Indigo, PSAE - Continue oxycodone, morphine when necessary for pain - s/p Washout of the right thigh removal of acellular matrix and placement of the wound VAC on 08/24/2016. - S/P right thigh debridement by plastic - 08/31 and plan for debridement at bedside this week - S/P Possible Split thickness skin graft 09/06 -Completed Diflucan started 08/31- Indigo on culture - s/p Levaquin 09/09/16- with PSAE on wound - ID ff. Plastics ff - S/P Severe sepsis-resolved - S/P Escherichia coli urinary tract infection-resolved -Pancytopenia due to sepsis, DIC. liver failure- multifactorial Macrocytic anemia - Thrombocytopenia - Symptomatic anemia- transfused couple units PRBC since admission along with 2 pack platelets, 2 FFP 2 cryo-since admission. Transfused 1 unit packed red blood cell yesterday 09/11/16. H&H currently stable and transfuse for hemoglobin less than 7 or patient symptomatic. Appreciate input from hematology - S/P Acute kidney injury secondary to Rhabdom and ATN - off hemodialysis and Vas-Cath removed. Appreciate input from nephrology - Acute rhabdomyolysis. Resolved -Depression- Psychiatry ff- Osborn act lifted 07/29/16 - Polysubstance abuse including cocaine/heroine - Use PRN Ativan for anxiety and oxycodone/morphine as needed for pain.- Resolved - Mild Respiratory insufficiency secondary to pneumonia/metabolic acidosis - Small consolidation right middle lobe-resolved - Right basilar pulmonary nodule 3 mm - follow-up CT chest 3 months recommended - Tobacco abuse: Counseled to quit - Sinus tachycardia- improved - NSTEMI - likely due to cocaine abuse - Hypertension: Currently normotensive . start amlodipine 2.5 mg daily if BP elevated - Transaminitis - resolved. - Hyperammonemia - resolved - likely due to rhabdomyolysis, hypotension. - CT of the abdomen and pelvis shows fatty liver/21 mm right ovarian cyst - Negative hepatitis panel - Xifaxan 550 twice a day/lactulose 30mg 3 times a day for elevated ammonia. - S/P liver biopsy 08/13/16 - showed minimal steatosis. Problem Qualifiers (1) Drug overdose: Qualified Code: T50.904A - Drug overdose, undetermined intent, initial encounter (2) Acute kidney failure: Qualified Code: N17.9 - Acute renal failure, unspecified acute renal failure type (3) Anemia: Dexter Bee MD Sep 13, 2016 10:50
[2016-09-13] MEDS: FERROUS SULFATE 325 MG (65 MG ELEMENTAL IRON) TAB PO SCH ×2 (11:45→17:18)
[2016-09-13 12:00] VITALS: BP 134/96; PULSE 99; RESP 17; TEMP 98; O2SAT 100
[2016-09-13 16:00] VITALS: BP 126/80; PULSE 86; RESP 17; TEMP 98.9; O2SAT 98
[2016-09-13 20:16] VITALS: BP 128/90; PULSE 87; RESP 16; TEMP 98.5; O2SAT 96
[2016-09-14 00:08] VITALS: BP 136/98; PULSE 82; RESP 17; TEMP 98.2; O2SAT 96
[2016-09-14] MEDS: CLINDAMYCIN IRRIGATION SCH ×2 (02:00→08:04)
[2016-09-14] MEDS: POLYMYXIN B IRRIGATION SCH ×2 (02:00→08:04)
[2016-09-14] MEDS: [UNRECOGNIZED DRUG - OTHER] IRRIGATION SCH ×2 (02:00→08:04)
[2016-09-14] MEDS: GENTAMICIN IRRIGATION SCH ×2 (02:00→08:04)
[2016-09-14] MEDS: MORPHINE SULFATE 4 MG/ML INJ IV PRN (02:22)
[2016-09-14 08:00] VITALS: BP 122/89; PULSE 85; RESP 16; TEMP 98.2; O2SAT 100
[2016-09-14] MEDS: FOLIC ACID 1 MG TAB PO SCH (08:01)
[2016-09-14] MEDS: MULTIVITAMIN TAB PO SCH (08:01)
[2016-09-14] MEDS: ASPIRIN EC 325 MG TABEC PO SCH (08:01)
[2016-09-14] MEDS: THIAMINE HCL 100 MG TAB PO SCH (08:01)
[2016-09-14] MEDS: FAMOTIDINE 20 MG TAB PO SCH (08:01)
[2016-09-14] MEDS: RIFAXIMIN 550 MG TAB PO SCH (08:01)
[2016-09-14] MEDS: LACTULOSE SYRUP 20 GM/30 ML CUP PO SCH (08:01)
[2016-09-14] MEDS ORDERED: BENZ100 PO (11:18)
[2016-09-14] MEDS ORDERED: Aspirin Ec PO (11:18)
[2016-09-14] MEDS ORDERED: LACT10SO PO (11:18)
[2016-09-14] MEDS ORDERED: XIFA550T4 PO (11:18)
[2016-09-14] MEDS ORDERED: OXYC-392 PO (11:18)
[2016-09-14] MEDS ORDERED: VITA100T2 PO (11:18)
[2016-09-14] MEDS ORDERED: FERR325T PO (11:18)
[2016-09-14] MEDS ORDERED: FAMO20TA2 PO (11:18)
--- NOTE | 2016-09-14 11:21 | HHI.PR ---
Subjective Remarks Follow-up right thigh compartment syndrome 09/09/16-patient seen and examine; denies any significant right lower extremity pain. Currently afebrile in no acute event overnight. 09/10/16-patient seen and examined; afebrile and no complaint. No acute event overnight 09/11/16-patient seen and examined, H&H dropping down to 7.2/21.0. Denies any acute event overnight 09/12/16-patient seen and examined. She was transfused 1 unit packed red blood cells yesterday. Stable this morning. 09/13/16-patient seen and examined. NO complaint and stable. Afebrile 09/14/16-patient seen and examined-Stable and no complaint. Objective Vitals Vital Signs Date Time Temp Pulse Resp B/P Pulse Ox O2 Delivery O2 Flow Rate FiO2 09/14/16 08:00 98.2 85 16 122/89 100 09/14/16 02:40 18 09/14/16 01:12 16 09/14/16 00:08 98.2 82 17 136/98 96 09/13/16 20:16 98.5 87 16 128/90 96 09/13/16 16:00 98.9 86 17 126/80 98 09/13/16 12:00 98.0 99 17 134/96 100 I/O 09/13/16 09/13/16 09/13/16 09/14/16 09/14/16 09/14/16 07:00 15:00 23:00 07:00 15:00 23:00 Intake Total 240 ml 720 ml 480 ml 480 ml Output Total 300 ml Balance -60 ml 720 ml 480 ml 480 ml Intake Oral 240 ml 720 ml 480 ml 480 ml IV Total 0 ml 0 ml Output Urine Total 300 ml # Voids 1 3 2 # Bowel Movements 0 1 Result Diagram: 09/12/16 0449 Objective Remarks GENERAL: NAD SKIN: Warm and dry. Dressing over right tight HEAD: Normocephalic. EYES: No scleral icterus. No injection or drainage. NECK: Supple, trachea midline. No JVD or lymphadenopathy. CARDIOVASCULAR: Regular rate and rhythm without murmurs, gallops, or rubs. RESPIRATORY: Breath sounds equal bilaterally. No accessory muscle use. GASTROINTESTINAL: Abdomen soft, non-tender, nondistended. MUSCULOSKELETAL: No cyanosis, or edema. Dressing over right tight BACK: Nontender without obvious deformity. No CVA tenderness. Procedures 08/24/2016 Washout of the right thigh removal of acellular matrix and placement of the wound VAC. 08/16/2016 Washout of the fasciotomy site with reattachment of acellular matrix and wound Vac. 08/06/2016 Washout of the fasciotomy site and placement of acellular matrix coverage with wound VAC placement. 07/26/2016 Pulse irrigation of the medial and lateral fasciotomy, closure of the medial wound, partial closure of the lateral wound and large wound Vac placement. 07/25/2016 Medial and lateral fasciotomy and compartment release of the thigh with right gluteal area. A/P Problem List: (1) Compartment syndrome of right lower extremity ICD Code: T79.A21A Status: Resolved (2) Rhabdomyolysis ICD Code: M62.82 Status: Resolved (3) Drug overdose ICD Code: T50.901A Status: Resolved (4) Acute kidney failure ICD Code: N17.9 Status: Resolved (5) Small right middle lobe consolidation Status: Resolved (6) Hip hematoma, right ICD Code: S70.01XA Status: Resolved (7) Leukopenia ICD Code: D72.819 Status: Acute (8) Anemia ICD Code: D64.9 Status: Acute Assessment and Plan 30-year-old female with - Right thigh compartment syndrome - Status post right fasciotomy and wound VAC placement by Dr. Turner - however now off VAC - Wound - culture- fasciotomy site- with Indigo, PSAE - Continue oxycodone, morphine when necessary for pain - s/p Washout of the right thigh removal of acellular matrix and placement of the wound VAC on 08/24/2016. - S/P right thigh debridement by plastic - 08/31 and plan for debridement at bedside this week - S/P Possible Split thickness skin graft 09/06 -Completed Diflucan started 08/31- Indigo on culture - s/p Levaquin 09/09/16- with PSAE on wound - ID ff. Plastics ff - S/P Severe sepsis-resolved - S/P Escherichia coli urinary tract infection-resolved -Pancytopenia due to sepsis, DIC. liver failure- multifactorial Macrocytic anemia - Thrombocytopenia - Symptomatic anemia- transfused couple units PRBC since admission along with 2 pack platelets, 2 FFP 2 cryo-since admission. Transfused 1 unit packed red blood cell yesterday 09/11/16. H&H currently stable and transfuse for hemoglobin less than 7 or patient symptomatic. Appreciate input from hematology - S/P Acute kidney injury secondary to Rhabdom and ATN - off hemodialysis and Vas-Cath removed. Appreciate input from nephrology - Acute rhabdomyolysis. Resolved -Depression- Psychiatry ff- Osborn act lifted 07/29/16 - Polysubstance abuse including cocaine/heroine - Use PRN Ativan for anxiety and oxycodone/morphine as needed for pain.- Resolved - Mild Respiratory insufficiency secondary to pneumonia/metabolic acidosis - Small consolidation right middle lobe-resolved - Right basilar pulmonary nodule 3 mm - follow-up CT chest 3 months recommended - Tobacco abuse: Counseled to quit - Sinus tachycardia- improved - NSTEMI - likely due to cocaine abuse - Hypertension: Currently normotensive . start amlodipine 2.5 mg daily if BP elevated - Transaminitis - resolved. - Hyperammonemia - resolved - likely due to rhabdomyolysis, hypotension. - CT of the abdomen and pelvis shows fatty liver/21 mm right ovarian cyst - Negative hepatitis panel - Xifaxan 550 twice a day/lactulose 30mg 3 times a day for elevated ammonia. - S/P liver biopsy 08/13/16 - showed minimal steatosis. Problem Qualifiers (1) Drug overdose: Qualified Code: T50.904A - Drug overdose, undetermined intent, initial encounter (2) Acute kidney failure: Qualified Code: N17.9 - Acute renal failure, unspecified acute renal failure type (3) Anemia: Dexter Bee MD Sep 14, 2016 11:21
--- NOTE | 2016-09-14 11:22 | HHI.DS ---
Discharge Summary Admission Date Jul 25, 2016 at 15:39 Discharge Date: Sep 14, 2016 Admitting Diagnosis Sepsis, possible acetaminophen overdose, tranaminitis, renal failure (1) Compartment syndrome of right lower extremity ICD Code: T79.A21A (2) Rhabdomyolysis ICD Code: M62.82 (3) Drug overdose ICD Code: T50.901A (4) Acute kidney failure ICD Code: N17.9 (5) Small right middle lobe consolidation (6) Hip hematoma, right ICD Code: S70.01XA (7) Leukopenia ICD Code: D72.819 (8) Anemia ICD Code: D64.9 Procedures 08/24/2016 Washout of the right thigh removal of acellular matrix and placement of the wound VAC. 08/16/2016 Washout of the fasciotomy site with reattachment of acellular matrix and wound Vac. 08/06/2016 Washout of the fasciotomy site and placement of acellular matrix coverage with wound VAC placement. 07/26/2016 Pulse irrigation of the medial and lateral fasciotomy, closure of the medial wound, partial closure of the lateral wound and large wound Vac placement. 07/25/2016 Medial and lateral fasciotomy and compartment release of the thigh with right gluteal area. Brief History - From Admission Patient is a 30-year-old female who was brought to the emergency department by the police for medical clearance. Apparently patient was found in bed with her boyfriend this morning who overdosed on drugs. Patient's boyfriend was was found on the bed. In the ER patient reported numbness to the right side of the body and she admits to snorting some cocaine last night. Patient does not recall any of the events overnight or how she got to the hospital. Her drug screen was essentially negative but she admits to cocaine and heroine use. Patient is a very poor historian. EKG shows probable ST elevation V1 and V2 questionable Brugada syndrome. Initially was hypotensive but responded well to IV fluids. Received total 3 L of fluids but remained tachycardic. There were multiple lab abnormalities. Her CBC showed WBC 18.7 with 92% neutrophils. Her chemistry showed potassium of 6.2, BUN of 17 creatinine 2.97, bicarbonate was only 11.2 with an anion gap of 22. Liver enzymes are markedly elevated AST was 6641 ALT was 1419. Patient was hypocalcemic with 6.6 calcium. Lactate came back very elevated at 9.1. Tylenol level was negative. I believe transaminitis is from shocked liver from hypotension-patient denies hepatitis C. CT of the head was negative I evaluated the patient in the ED. She looks critically ill but did not appear to be in distress at this time. Patient denies chest pain. Her troponin came back at 6.24, CPK pending. 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 Carter road cutter.. CK is highly elevated indicating rhabdomyolysis. Dr. Carter does not think this meets criteria for STEMI as the patient is asymptomatic. I did a bedside echo which showed normal ejection fraction no vegetation on the valve on my evaluation. Patient's right thigh is swollen and tense with severe tenderness, distal pulses are palpable but she appears to have compartment syndrome of right thigh. I spoke with Dr. Balderas who will evaluate the patient stat for fasciotomy. Continue IV hydration with bicarb infusion CBC/BMP: 09/12/16 0449 Significant Findings Laboratory Tests Test 09/12/16 04:49 Red Blood Count 3.21 MIL/MM3 (4.00-5.30) Hemoglobin 9.6 GM/DL (11.6-15.3) Hematocrit 28.0 % (35.0-46.0) Platelet Count 138 TH/MM3 (150-450) Imaging Last Impressions Liver Biopsy CT 08/13/16 0000 Signed Impressions: Service Date/Time: Saturday, August 13, 2016 12:42 - CONCLUSION: Uncomplicated CT guided biopsy. Raymundo Agarwal MD Chest X-Ray 08/09/16 0000 Signed Impressions: Service Date/Time: Tuesday, August 09, 2016 19:30 - CONCLUSION: 1. Interval placement of double-lumen central venous line. 2. Hazy opacity at the lung bases with mild blunting of the left costophrenic angle which could indicate a small effusion. Nael Zuñiga MD Catheter Placement X-Ray 07/30/16 0000 Signed Impressions: Service Date/Time: Saturday, July 30, 2016 14:14 - CONCLUSION: Uncomplicated line placement as above. Judson Cee MD Brain MRI 07/29/16 Signed Impressions: Service Date/Time: July 13:34 - CONCLUSION: 1. Abnormal examination of the brain demonstrating areas of T2 signal and abnormal diffusion signal involving the globus pallidus bilaterally and the mesial temporal lobes bilaterally. Primary considerations would include carbon monoxide poisoning versus other partial anoxic brain injury. Please see above discussion. Aamir Narayanan MD Abdomen Ultrasound 07/26/16 Signed Impressions: Service Date/Time: Tuesday, July 26, 2016 10:21 - CONCLUSION: 1. Small amount of free fluid adjacent to the lower poles of both kidneys. 2. Obscuration of the head of the pancreas, distal IVC and aorta due to overlying bowel gas. 3. Otherwise negative. Judson Cee MD Lower Extremity CT 07/25/16 Signed Impressions: Service Date/Time: Monday, July 25, 2016 18:54 - CONCLUSION: Extensive nonspecific myositis of the right thigh, also involves gluteus medius and minimus proximally and at least medial gastrocnemius below the knee. Infectious/inflammatory and ischemic etiologies would be in the differential. No gas bubbles are seen to substantiate necrotizing fasciitis. No organized/drainable abscess. Glenroy Sheffield MD Hip and Pelvis X-Ray 07/25/16 Signed Impressions: Service Date/Time: Monday, July 25, 2016 16:52 - CONCLUSION: Intact pelvis and right hip. Nonspecific surrounding soft tissue swelling Glenroy Sheffield MD Head CT 07/25/16 0000 Signed Impressions: Service Date/Time: Monday, July 25, 2016 14:38 - CONCLUSION: Negative noncontrast head CT. Glenroy Sheffield MD Chest CT 07/25/16 0000 Signed Impressions: Service Date/Time: Monday, July 25, 2016 16:37 - CONCLUSION: Focal dense consolidation right middle lobe, nonspecific but most likely infectious or inflammatory. Also a 3 mm right basilar pulmonary nodule Followup noncontrast chest CT in a few months recommended to confirm resolution/stability. Glenroy Sheffield MD Abdomen/Pelvis CT 07/25/16 0000 Signed Impressions: Service Date/Time: Monday, July 25, 2016 16:37 - CONCLUSION: 1. Fatty liver and 21 mm right ovarian cyst. Otherwise, no acute abnormality seen within the abdomen or pelvis. 2. Swollen, heterogeneous right hip musculature, primarily gluteus medius and minimus, rectus femoris and vastus lateralis and the adductor muscles. This is nonspecific but suggests a subacute hematoma of these structures. Nothing organized/measurable. 3. Chronic L5 pars defects with grade 2 L5/S1 spondylolisthesis. Glenroy Sheffield MD PE at Discharge GENERAL: NAD SKIN: Warm and dry. Dressing over right tight HEAD: Normocephalic. EYES: No scleral icterus. No injection or drainage. NECK: Supple, trachea midline. No JVD or lymphadenopathy. CARDIOVASCULAR: Regular rate and rhythm without murmurs, gallops, or rubs. RESPIRATORY: Breath sounds equal bilaterally. No accessory muscle use. GASTROINTESTINAL: Abdomen soft, non-tender, nondistended. MUSCULOSKELETAL: No cyanosis, or edema. Dressing over right tight BACK: Nontender without obvious deformity. No CVA tenderness. Hospital Course - Right thigh compartment syndrome - Status post right fasciotomy and wound VAC placement by Dr. Turner - wound VAC was subsequently removed - Wound - culture- fasciotomy site- with Indigo, PSAE - She was treated with oxycodone, morphine when necessary for pain - s/p Washout of the right thigh removal of acellular matrix and placement of the wound VAC on 08/24/2016. - S/P right thigh debridement by plastic - 08/31 - S/P Possible Split thickness skin graft 09/06 -Completed Diflucan started 08/31- Indigo on culture - s/p Levaquin 09/09/16- with PSAE on wound - ID ff. Plastics ff - S/P Severe sepsis-resolved - S/P Escherichia coli urinary tract infection-resolved -Pancytopenia due to sepsis, DIC. liver failure- multifactorial Macrocytic anemia - Thrombocytopenia - Symptomatic anemia- transfused couple units PRBC since admission along with 2 pack platelets, 2 FFP 2 cryo-since admission. - S/P Acute kidney injury secondary to rhabdomyolysis and ATN - nephrology was consulted and patient underwent hemodialysis which was subsequently discontinued after renal function improve and Vas-Cath removed. Rhabdomyolysis resolved with aggressive IV fluid hydration -Depression- psychiatry was consulted as patient was initially admitted under Osborn act which was subsequently lifted on 07/29/16. - Polysubstance abuse including cocaine/heroine-she was treated with PRN Ativan for anxiety and oxycodone/morphine as needed for pain.-Resolved - Mild Respiratory insufficiency secondary to pneumonia/metabolic acidosis - Small consolidation right middle lobe-resolved with IV Dilaudid biotics - Right basilar pulmonary nodule 3 mm - follow-up CT chest 3 months recommended - Tobacco abuse: Counseled to quit - Sinus tachycardia- improved - NSTEMI - likely due to cocaine abuse - Hypertension: Currently normotensive . - Transaminitis - resolved. - Hyperammonemia - resolved - likely due to rhabdomyolysis, hypotension. - CT of the abdomen and pelvis shows fatty liver/21 mm right ovarian cyst - Negative hepatitis panel - Xifaxan 550 twice a day/lactulose 30mg 3 times a day for elevated ammonia. - S/P liver biopsy 08/13/16 - showed minimal steatosis. Pt Condition on Discharge: Stable Discharge Disposition: Discharge Home Discharge Time: <= 30 minutes Discharge Instructions DIET: Follow Instructions for: As Tolerated, No Restrictions Activities you can perform: Regular-No Restrictions Follow up Referrals: PCP Follow-up - 1 Week Plastic Surgery New Orders: CT THORAX W CONTRAST (CHEST) - 3 Months New Medications: Benzonatate (Tessalon Perles) 100 Mg Cap 100 MG PO TID PRN cough #21 CAP Famotidine (Famotidine) 20 Mg Tab 10 MG PO BID Prevent Stress Ulcers #60 TAB Ferrous Sulfate (Ferrous Sulfate) 325 Mg Tab 325 MG PO BID@,17 Immunosuppression #60 TAB Lactulose Liq (Lactulose Liq) 10 Gm/15 Ml Soln 30 ML PO BID Immunosuppression #60 ML Oxycodone (Oxycodone) 5 Mg Tab 5 MG PO Q6H PRN PAIN SCALE 1 TO 10 #10 TAB Rifaximin (Xifaxan) 550 Mg Tab 550 MG PO BID Immunosuppression #60 TAB Thiamine (Vitamin B-1) 100 Mg Tab 100 MG PO DAILY Alcohol Detox #30 TAB ([Aspirin Ec]) 325 MG TABEC 325 MG PO DAILY #30 TAB.EC Dexter Bee MD Sep 14, 2016 11:22
[2016-09-14] MEDS: FERROUS SULFATE 325 MG (65 MG ELEMENTAL IRON) TAB PO SCH (11:50)
[2016-09-14 12:00] VITALS: BP 139/103; PULSE 90; RESP 16; TEMP 97.8; O2SAT 98
--- NOTE | 2016-09-18 15:21 | PQ ---
Physician Query Response Document PATIENT: HEENA GODINEZ : 1985 ADMIT DATE: 07/25/2016 3:39 PM DISCH DATE: 09/14/2016 1:17 PM RESPONDING PROVIDER #: heather QUERY TEXT: Clarification of Clinical Diagnostic Findings Please clarify documentation or clinical relevance for the clinical / diagnostic reference to troponi n. PATIENT WAS NOTED TO HAVE AN INCREASED TROPONIN. Was elevated troponin due to: 1)unknown etiology 2)sepsis 3)cocaine abuse/NSTEMI 4)both 2 AND 3 5)other(please specify) If you have any additional questions/comments and or concerns please call [email or web address] The patient's Clinical Indicators include: Dr. FINLEY, you have documented on 08/22/16 "NSTEMI-LIKELY DUE TO COCAINE ABUSE" Cardiiology documents on 08/01 "elevated troponid ....from Sepsis" Cardiology documents on 08/21/16 "elevated troponin ....from Sepsis" Please review the question below and answer to the best of your ability. THANK YOU Query created by: Randy Reid on 09/17/2016 10:21 AM RESPONSE TEXT: Troponin elevation likely due to cocaine abuse as well as sepsis. Electronically signed by: Paul Finley DO 09/18/2016 3:17 PM
--- NOTE | 2016-09-21 07:35 | MP ---
cc: MICHAEL GUERRA M.D. DATE OF SURGERY: 09/06/2016 PREOPERATIVE DIAGNOSES Large open wound right thigh, anterolateral aspect, 25 x 15 cm. POSTOPERATIVE DIAGNOSIS Large open wound right thigh, anterolateral aspect, 25 x 15 cm. OPERATION Sharp debridement, excision and split-thickness skin graft of the right thigh wound; donor site right thigh anterior skin. SURGEON Dr. Guerra ANESTHESIA General. INDICATION This is a 30-year-old white female with a large open wound on the right side resulting from a decompressive fasciotomy. She originally had a drug overdose and had developed compartment syndrome and rhabdomyolysis. During the original admission she had multiple surgeries, wound VAC and eventually open treatment. The wound has grown Indigo albicans and Pseudomonas that have been treated with appropriate antibiotics for the past week. The patient's wound condition has improved. She understands the possible risks and complications of the surgery including failure of the graft and repeat attempt at wound healing may have to continue. PROCEDURE The patient was brought to the operating room, was given supine position. Anesthesia was started. Prep and drape was done. She is on scheduled IV antibiotics. The timeout was called and completed. The entire wound granulating surface was shave excised with a #10 blade removing most of the exuberant granulation tissue and making the bed smooth. Also, the area was scrubbed with a Betadine scrub sponge and brush both for several minutes to remove any slimy discharge and also to smooth out the surface as best as possible. The area was covered with a saline wet lap. The rest of the thigh was cleaned and a split-thickness skin graft was harvested using a dermatome set at inch thickness. Multiple strips were taken to cover the entire area and they were meshed to 1.5 ratio and applied to the open wound with fady. The areas were dressed with Xeroform and layered cotton wet dressing. Also, the donor site had been injected with tumescent solution with local anesthetic for postoperative pain control. The patient remained stable. Intraoperative blood loss less than 50 cc. No complications. signed, not fully reviewed MD ISABEL Coleman/NICOL /10:37 AM /7:26 AM OTTONIEL
== END 2016-09-14 13:17 | disposition home or self-care (01) | DRG 853 ==
LOC: NEPC 12:44 → NEDA 15:39 → HIMN 17:15 → N03A 23:42 → N07A 08-04 15:35
PROVIDERS: ADMIT Hospitalist; ATTEND Hospitalist
PROC: 0JDL0ZZ Extraction of Right Upper Leg Subcutaneous Tissue and Fascia, Open Approach (ICD-10-PCS; 2016-07-25)
PROC: 0T9B70Z Drainage of Bladder with Drainage Device, Via Natural or Artificial Opening (ICD-10-PCS; 2016-07-25)
PROC: 0KNQ0ZZ Release Right Upper Leg Muscle, Open Approach (ICD-10-PCS; principal; 2016-07-25 20:03)
PROC: 0JDL0ZZ Extraction of Right Upper Leg Subcutaneous Tissue and Fascia, Open Approach (ICD-10-PCS; 2016-07-26)
PROC: 30233K1 Transfusion of Nonautologous Frozen Plasma into Peripheral Vein, Percutaneous Approach (ICD-10-PCS; 2016-07-26)
PROC: 30233N1 Transfusion of Nonautologous Red Blood Cells into Peripheral Vein, Percutaneous Approach (ICD-10-PCS; 2016-07-26)
PROC: 6A550Z2 Pheresis of Platelets, Single (ICD-10-PCS; 2016-07-26)
PROC: 0HQHXZZ Repair Right Upper Leg Skin, External Approach (ICD-10-PCS; 2016-07-26)
PROC: 05HM33Z Insertion of Infusion Device into Right Internal Jugular Vein, Percutaneous Approach (ICD-10-PCS; 2016-07-30)
PROC: 5A1D60Z (ICD-10-PCS; 2016-07-31)
PROC: 0JR Subcutaneous Tissue and Fascia, Replacement (ICD-10-PCS; 2016-08-06)
PROC: 3E10X8Z Irrigation of Skin and Mucous Membranes using Irrigating Substance (ICD-10-PCS; 2016-08-15)
PROC: 0FB13ZX Excision of Right Lobe Liver, Percutaneous Approach, Diagnostic (ICD-10-PCS; 2016-08-23)
PROC: 3E10X8Z Irrigation of Skin and Mucous Membranes using Irrigating Substance (ICD-10-PCS; 2016-08-24)
PROC: 0HBHXZZ Excision of Right Upper Leg Skin, External Approach (ICD-10-PCS; 2016-08-30)
PROC: 0HRHX74 Replacement of Right Upper Leg Skin with Autologous Tissue Substitute, Partial Thickness, External Approach (ICD-10-PCS; 2016-09-06)
PROC: 0JBL0ZZ Excision of Right Upper Leg Subcutaneous Tissue and Fascia, Open Approach (ICD-10-PCS; 2016-09-06)
PROC: 0HBHXZZ Excision of Right Upper Leg Skin, External Approach (ICD-10-PCS; 2016-09-06)
DX: A41.9 Sepsis, unspecified organism (principal); T40.5X1A Poisoning by cocaine, accidental (unintentional), initial encounter; K72.00 Acute and subacute hepatic failure without coma; D65 Disseminated intravascular coagulation [defibrination syndrome]; I21.4 Non-ST elevation (NSTEMI) myocardial infarction; N17.0 Acute kidney failure with tubular necrosis; J18.9 Pneumonia, unspecified organism; E43 Unspecified severe protein-calorie malnutrition; R57.1 Hypovolemic shock; G93.40 Encephalopathy, unspecified; T79.A21A Traumatic compartment syndrome of right lower extremity, initial encounter; D61.818 Other pancytopenia; E87.2 Acidosis; M62.82 Rhabdomyolysis; N39.0 Urinary tract infection, site not specified; E87.0 Hyperosmolality and hypernatremia; D62 Acute posthemorrhagic anemia; D75.1 Secondary polycythemia; E83.51 Hypocalcemia; K76.0 Fatty (change of) liver, not elsewhere classified; E87.5 Hyperkalemia; R33.9 Retention of urine, unspecified; S70.01XA Contusion of right hip, initial encounter; F14.10 Cocaine abuse, uncomplicated; F17.210 Nicotine dependence, cigarettes, uncomplicated; S30.811A Abrasion of abdominal wall, initial encounter; X58.XXXA Exposure to other specified factors, initial encounter; Y93.9 Activity, unspecified; Y92.9 Unspecified place or not applicable; R06.89 Other abnormalities of breathing; D75.89 Other specified diseases of blood and blood-forming organs; F12.90 Cannabis use, unspecified, uncomplicated; R91.1 Solitary pulmonary nodule; N83.201 Unspecified ovarian cyst, right side; Z80.6 Family history of leukemia; M43.17 Spondylolisthesis, lumbosacral region; T50.901A Poisoning by unspecified drugs, medicaments and biological substances, accidental (unintentional), initial encounter; Y92.009 Unspecified place in unspecified non-institutional (private) residence as the place of occurrence of the external cause; E83.42 Hypomagnesemia; B96.20 Unspecified Escherichia coli [E. coli] as the cause of diseases classified elsewhere; I10 Essential (primary) hypertension; D63.8 Anemia in other chronic diseases classified elsewhere; E87.6 Hypokalemia; K59.00 Constipation, unspecified; Y92.003 Bedroom of unspecified non-institutional (private) residence as the place of occurrence of the external cause; D53.9 Nutritional anemia, unspecified
CPT/HCPCS: 36430; 36556; 36600; 47000; 70450; 70551; 71010; 71250; 73502; 73700; 74176; 76700; 76937; 77001; 77012; 80048; 80053; 80061; 80074; 80076; 80202; 80301; 80320; 80324; 80329; 80352; 80356; 80358; 80371; 81001; 81003; 82103; 82104; 82105; 82140; 82390; 82525; 82550; 82552; 82570; 82607; 82728; 82746; 82805; 82948; 83520; 83540; 83550; 83605; 83615; 83735; 84100; 84155; 84300; 84484; 84702; 84703; 85014; 85018; 85025; 85027; 85044; 85379; 85384; 85610; 85730; 86021; 86038; 86140; 86160; 86256; 86850; 86900; 86901; 86920; 86927; 86965; 87015; 87040; 87070; 87077; 87086; 87102; 87116; 87186; 87205; 87206; 87641; 88307; 88313; 90935; 93005; 93306; 94150; 94640; 94664; 95819; 96365; 96374; 96375; C1752; C1769; G0479; G0479-59; G0480; G0481; J0131; J0132; J0171; J0360; J0610; J0690; J0878; J1100; J1200; J1580; J1644; J1650; J1756; J1815; J2060; J2175; J2250; J2270; J2370; J2405; J2543; J2710; J3010; J3370; J3411; J3430; J3475; J3480; J7030; J7050; J7060; J7070; J7120; P9016; P9017; P9035; P9040; P9047; Q4118; Q4119

== ENCOUNTER 2016-09-18 11:52 | Emergency (ER) | payer MEDICAID, OTHER ==
[~2016-09-18] VITALS: Ht 162.6 cm; Wt 48.0 kg
[~2016-09-18 11:52] MED LIST changes: +Aspirin Ec PO; +BENZ100 PO; +FAMO20TA2 PO; +FERR325T PO; +LACT10SO PO; +OXYC-392 PO; -PHENYLEPH/NS 1000 MCG/10 ML SYR IV ONE; -PROPOFOL 200 MG/20 ML AMP IV ONE; +VITA100T2 PO; +XIFA550T4 PO
[2016-09-18 11:54] VITALS: BP 173/111; PULSE 132; RESP 20; TEMP 98.1; O2SAT 98
--- NOTE | 2016-09-18 12:34 | PD ---
HPI Chief Complaint: Skin Problem Time Seen by Provider: 12:04 Travel History International Travel<30 days: No Contact w/Intl Traveler<30days: No Traveled to known affect area: No History of Present Illness HPI Is a 30-year-old woman presents emergent from complaining of difficulty with a dressing on her right thigh. She was seen emergency department following an overdose. She had rhabdomyolysis and compartment syndrome right thigh treated with a fasciotomy. She had a skin graft on by Dr. Worley on September 06 that site. She states she was discharged several days ago. She's following up with Dr. Wilson but states that they told her not to change the bandage for week until she saw him. The bandage his however falling apart and she is worried about it getting infected. History Past Medical History Medical History: Denies Significant Hx LMP: EARLY JULY 2016 : 0 Social History Alcohol Use: No (COUPLE TIMES A WEEK) Tobacco Use: Yes (1PPD) Allergies-Medications (Allergen,Severity, Reaction): Coded Allergies: No Known Allergies (Unverified , 09/18/16) Reported Meds & Prescriptions Reported Meds & Active Scripts Active Oxycodone (Oxycodone HCl) 5 Mg Tab 5 Mg PO Q6H PRN Vitamin B-1 (Thiamine HCl) 100 Mg Tab 100 Mg PO DAILY Xifaxan (Rifaximin) 550 Mg Tab 550 Mg PO BID Lactulose Liq (Lactulose) 10 Gm/15 Ml Soln 30 Ml PO BID Ferrous Sulfate 325 Mg Tab 325 Mg PO BID@12,17 Famotidine 20 Mg Tab 10 Mg PO BID Tessalon Perles (Benzonatate) 100 Mg Cap 100 Mg PO TID PRN [Aspirin Ec] 325 MG Tabec 325 Mg PO DAILY Review of Systems Except as stated in HPI: all other systems reviewed are Neg Physical Exam Narrative GENERAL: Well-appearing 30-year-old, no acute distress. SKIN: Warm and dry. CARDIOVASCULAR: Warm and well perfused. RESPIRATORY: Normal rate and effort. MUSCULOSKELETAL: Focused examination of the right lower extremity reveals a skin graft donor site on the anterior thigh. There is iodoform dressing is firmly adhered to the majority of the wound. The soft rolls also anterior to the iodoform dressing. Lateral to that, there is a skin graft site that appears to be well-healing. The skin graft appears well integrated into the wound, and she has a few areas of scabbing on the wound. There is several fady in place. Data Data Last Documented VS Vital Signs Date Time Temp Pulse Resp B/P Pulse Ox O2 Delivery O2 Flow Rate FiO2 09/18/16 12:07 109 16 09/18/16 11:54 98.1 173/111 98 Room Air MDM Medical Decision Making Medical Screen Exam Complete: Yes Emergency Medical Condition: Yes Differential Diagnosis Skin graft, infection, other Narrative Course Is a 30-year-old woman with a skin graft her right thigh following fasciotomy for compartment syndrome. She looks well. His skin graft appears to be healing well. The donor site is still healing and the dressing is firmly adhered. I spoke with Dr. Brunilda lopez, we'll place a nonadhesive dry dressings on the wound, recommend outpatient follow-up. Diagnosis Primary Impression: Wound of right leg Qualified Code: S81.801A - Wound of right leg, initial encounter Referrals: Alejandro Guerra MD 3 days Additional Instructions: Keep wound clean and dry. Follow up with Dr. Guerra at the first available appointment. Return to the emergency department for any new or worsening symptoms. Med/Other Pt SpecificInfo: No Change to Meds Disposition: 01 DISCHARGE HOME Condition: Stable Mason Christiansen MD Sep 18, 2016 12:33
[2016-09-18] MEDS ORDERED: OXYC-392 PO (12:43)
== END 2016-09-18 13:05 | disposition home or self-care (01) ==
LOC: NEPE 11:52
DX: S81.801D Unspecified open wound, right lower leg, subsequent encounter (principal); Y83.9 Surgical procedure, unspecified as the cause of abnormal reaction of the patient, or of later complication, without mention of misadventure at the time of the procedure
CPT/HCPCS: 99283

== ENCOUNTER 2016-11-10 12:08 | Emergency (ER) | payer SELFPAY ==
[~2016-11-10] VITALS: Ht 162.6 cm; Wt 57.0 kg
[2016-11-10 12:10] VITALS: BP 159/103; PULSE 106; RESP 14; TEMP 98.1; O2SAT 99
--- NOTE | 2016-11-10 12:26 | PD ---
HPI Chief Complaint: Wound/Suture/Staple Re-Check Time Seen by Provider: 12:25 Travel History International Travel<30 days: No Contact w/Intl Traveler<30days: No Traveled to known affect area: No History of Present Illness HPI 31-year-old female presents to the emergency department requesting fady to be removed from her right lateral thigh that has been there since September 18 after a surgical procedure. 2 weeks ago she had the rest of the fady removed and she noticed 2 fady to the area she thinks they missed. She doesn 't remember the name of her surgeon. She denies fever, chills, nausea, vomiting. Has no other medical complaints. No other modifying factors or associated signs and symptoms. PFSH Past Medical History ?: Not LMP: 11/06/16 : 0 Past Surgical History Other Surgery: Yes (SKIN GRAFT) Social History Alcohol Use: No (COUPLE TIMES A WEEK) Tobacco Use: Yes (1PPD) Substance Use: Yes (MARIJUANA) Allergies-Medications (Allergen,Severity, Reaction): Coded Allergies: No Known Allergies (Unverified , 09/18/16) Reported Meds & Prescriptions Reported Meds & Active Scripts Active Oxycodone (Oxycodone HCl) 5 Mg Tab 5 Mg PO Q6H PRN Vitamin B-1 (Thiamine HCl) 100 Mg Tab 100 Mg PO DAILY Xifaxan (Rifaximin) 550 Mg Tab 550 Mg PO BID Lactulose Liq (Lactulose) 10 Gm/15 Ml Soln 30 Ml PO BID Ferrous Sulfate 325 Mg Tab 325 Mg PO BID@,17 Famotidine 20 Mg Tab 10 Mg PO BID Tessalon Perles (Benzonatate) 100 Mg Cap 100 Mg PO TID PRN [Aspirin Ec] 325 MG Tabec 325 Mg PO DAILY Review of Systems Except as stated in HPI: all other systems reviewed are Neg Physical Exam Narrative GENERAL: Well-nourished, well-developed female patient, in no acute distress; afebrile, nontoxic-appearing SKIN: Warm and dry. Right lateral and anterior thigh with well-healed wound; two staple noted in the middle of the wound; without erythema, edema, drainage. No signs of infection. HEAD: Atraumatic. Normocephalic. EYES: Pupils equal and round. No scleral icterus. No injection or drainage. ENT: Mucosa pink and moist. Airway patent. NECK: Trachea midline. CARDIOVASCULAR: Regular rate. RESPIRATORY: No accessory muscle use. GASTROINTESTINAL: Flat. MUSCULOSKELETAL: No obvious deformities. No clubbing. No cyanosis. No edema. NEUROLOGICAL: Awake and alert. Oriented 3. No obvious cranial nerve deficits. Motor grossly within normal limits. Normal speech. PSYCHIATRIC: Appropriate mood and affect; insight and judgment normal. Data Data Last Documented VS Vital Signs Date Time Temp Pulse Resp B/P Pulse Ox O2 Delivery O2 Flow Rate FiO2 11/10/16 12:10 98.1 106 14 159/103 99 Room Air MDM Medical Decision Making Medical Screen Exam Complete: Yes Emergency Medical Condition: Yes Medical Record Reviewed: Yes Differential Diagnosis Staple removal, medical clearance, wound recheck Narrative Course This is a 31-year-old female requesting staple removal from after having a skin graft of her right thigh following fasciotomy for compartment syndrome on September 18. Dr. Henderson was her surgeon. She had the fady removed 2 weeks ago and noticed that 2 fady were still intact. She assumes they missed them because she was not told anything about coming back in or having them taken out. The area appears well healed and without signs of infection. 2 fady are noted in the middle of the wound and they do not appear to be holding anything closed or in place. [place] removed. Patient tolerated well. Instructed patient to follow up with Dr. So. Patient verbalizes understanding and agreement with treatment plan. Patient is medically cleared and stable for discharge. Discussed reasons to return to the emergency department. Instructed patient to follow up with primary care provider. Patient agrees with treatment plan. The patients vital signs are stable and the patient is stable for outpatient follow-up and treatment. Patient discharged home, stable and in no acute distress. Diagnosis Primary Impression: Encounter for staple removal Referrals: Primary Care Physician Patient Instructions: General Instructions Departure Forms: Tests/Procedures, Work Release Enter return to work date: Nov 11, 2016 Additional Instructions: Follow-up with primary care provider Follow-up with surgeon Return to the emergency department immediately with worsening of symptoms Med/Other Pt SpecificInfo: No Change to Meds, No Meds Exist/No RX given Disposition: 01 DISCHARGE HOME Condition: Stable Shoshana Swartz Nov 10, 2016 12:26
== END 2016-11-10 13:06 | disposition home or self-care (01) ==
LOC: NETRI 12:08
DX: Z48.89 Encounter for other specified surgical aftercare (principal); Z48.02 Encounter for removal of sutures
CPT/HCPCS: 99281

== ENCOUNTER 2017-03-27 13:10 | Emergency (ER) | payer SELFPAY ==
[~2017-03-27] VITALS: Ht 162.6 cm; Wt 56.2 kg
[2017-03-27 13:12] VITALS: BP 132/91; PULSE 119; RESP 18; TEMP 97.9; O2SAT 97
--- NOTE | 2017-03-27 13:42 | PD ---
HPI Chief Complaint: Injury Time Seen by Provider: 13:30 Travel History International Travel<30 days: No Contact w/Intl Traveler<30days: No Traveled to known affect area: No History of Present Illness HPI 31-year-old female presents to the emergency room for evaluation of right ankle pain and swelling for the past 6 days. Patient tripped and fell down 3 or 4 stairs. She does not remember if she twisted her ankle but believe she slammed the side of her foot on a stair. She is not having significant pain localized to the lateral malleolus. Pain is worsened with ambulation and range of motion. She has been able to ambulate but with pain. She has no taken anything for her symptoms. She denies hitting her loss consciousness. Denies any other injuries. PFSH Past Medical History Diminished Hearing: No Influenza Vaccination: Yes ?: Not LMP: 03/12/2017 : 0 Past Surgical History Other Surgery: Yes (SKIN GRAFT) Social History Alcohol Use: No (COUPLE TIMES A WEEK) Tobacco Use: Yes (1PPD) Substance Use: Yes (MARIJUANA) Allergies-Medications (Allergen,Severity, Reaction): Coded Allergies: No Known Allergies (Unverified , 03/27/17) Reported Meds & Prescriptions Reported Meds & Active Scripts Active Lortab (Hydrocodone-Acetaminophen) 5-325 Mg Tab 1 Tab PO Q6H PRN Review of Systems Except as stated in HPI: all other systems reviewed are Neg Physical Exam Narrative GENERAL: Well-nourished, well-developed female in no acute distress. Afebrile. Ambulatory with a limp. SKIN: Focused skin assessment warm/dry. Extreme ecchymosis in the right foot. HEAD: Normocephalic. EYES: No scleral icterus. No injection or drainage. NECK: Supple, trachea midline. No JVD or lymphadenopathy. CARDIOVASCULAR: Regular rate and rhythm without murmurs, gallops, or rubs. RESPIRATORY: Breath sounds equal bilaterally. No accessory muscle use. EXTREMITY: Full range of motion of ankle and foot. No bony tenderness to palpation of the foot. Tenderness to palpation of the lateral malleolus. 2+ dorsalis pedis pulse. Extreme edema of the right extremity. Data Data Last Documented VS Vital Signs Date Time Temp Pulse Resp B/P Pulse Ox O2 Delivery O2 Flow Rate FiO2 7/30/17 13:12 97.9 119 18 132/91 97 Orders Foot, Complete ([id number]) (03/27/17 ) Ankle, Complete (Oey0pbl) (03/27/17 ) Splint Or Brace Apply/Monitor (03/27/17 14:19) Crutches (03/27/17 14:19) Mandatory Outpatient Referral (03/27/17 14:52) Fiberglass Short Leg Splint Ad (03/27/17 ) Fiberglass Sugartong Sp Ad Sl (03/27/17 ) MDM Medical Decision Making Medical Screen Exam Complete: Yes Emergency Medical Condition: Yes Medical Record Reviewed: Yes Differential Diagnosis Sprain, fracture, strain Narrative Course 31-year-old female presents to the emergency room for evaluation of right ankle pain, swelling, and bruising for the past 6 days. Patient fell off the last few stairs but does not remember specifically twisting her ankle. She denies any other injury. Denies hitting her head or loss of consciousness. States she has had moderate pain in the right lateral malleolus especially with ambulation. She denies paresthesias. Right lower extremity has extreme edema and ecchymosis on exam. There is tenderness to palpation especially over the lateral malleolus. Full range of motion. 2+ dorsalis pedis pulse and less than 2 second capillary refill distally. Compartments soft. X-ray shows mildly displaced distal fibular fracture, tiny avulsion fracture of the medial malleolus, and possible nondisplaced posterior malleolus fracture. Because the patient is neurovascularly intact and this is a 6-day-old injury, she is stable for outpatient follow-up. She will be placed in Juares splint and discharged with crutches and prescription for Lortab. Mandatory outpatient referral was placed. Patient told to return for worsening symptoms. She understands and agrees to plan. Diagnosis Primary Impression: Fracture of distal end of fibula Qualified Code: S82.831A - Closed fracture of distal end of right fibula, unspecified fracture morphology, initial encounter Referrals: Primary Care Physician Patient Instructions: Ankle Fracture (ED), General Instructions Additional Instructions: Rest and drink plenty of fluids. Take Lortab as directed, as needed for pain. Do not drink alcohol or drive while taking this medication. Take ibuprofen with food as directed, as needed for pain. Apply ice to the affected area for 20 minutes at a time, as needed for pain and swelling. Follow-up with orthopedist within 1 week. Return to the emergency room for worsening symptoms. Med/Other Pt SpecificInfo: Prescription(s) given Scripts Hydrocodone-Acetaminophen (Lortab)5-325 Mg Tab1 Tab PO Q6H PRN (PAIN) #12 TAB Ref 0 Prov:Huseyin Nation MD 03/27/17 Disposition: 01 DISCHARGE HOME Condition: Stable Siri Orellana Mar 27, 2017 13:42
[2017-03-27] MEDS ORDERED: HYDR-3533 PO (14:27)
--- NOTE | 2017-03-27 14:45 | RADRPT ---
EXAM DATE/TIME: 03/27/2017 13:49 [facility] COMPARISON: No previous studies available for comparison. INDICATIONS : Fell on stairs, right ankle pain MEDICAL HISTORY : Right foot fracture SURGICAL HISTORY : None. ENCOUNTER: Initial ACUITY: 1 week PAIN SCORE: 8/10 LOCATION: Right ankle FINDINGS: There is an acute mildly displaced oblique fracture involving the right distal fibula. There is also a tiny avulsion fracture involving the inferior aspect of the medial malleolus of the distal tibia. There is a questionable nondisplaced posterior malleolar fracture also. Degenerative changes are no ivy involving the mid foot in the region of the tarsal metatarsal joints. CONCLUSION: 1. Acute mildly displaced fracture involving the right distal fibula. 2. Tiny avulsion fracture involving the inferior aspect of the medial malleolus of the distal tibia. 3. Questionable nondisplaced posterior malleolar fracture. 4. Degenerative changes involving the tarsal metatarsal joints. Mian Restrepo MD on March 27, 2017 at 14:26 Board Certified Radiologist. This report was verified electronically.
--- NOTE | 2017-03-27 14:48 | RADRPT ---
EXAM DATE/TIME: 03/27/2017 13:54 [facility] COMPARISON: No previous studies available for comparison. INDICATIONS : Fell on stairs, right foot pain MEDICAL HISTORY : Right foot fracture SURGICAL HISTORY : None. ENCOUNTER: Initial ACUITY: 1 week PAIN SCORE: 8/10 LOCATION: Right foot FINDINGS: There is an old healed fracture involving the distal shaft of the right second metatarsal. .degenera tive changes are noted involving the tarsal metatarsal joints as well as the tarsal-tarsal joints. T here is no acute fracture or dislocation of the right foot. Degenerative changes are also noted invo lving the first metatarsal phalangeal joint. CONCLUSION: 1. Degenerative changes involving the tarsal-tarsal and tarsal metatarsal joints as well as the firs t metatarsal phalangeal joint. 2. No acute fracture or dislocation of the bones of the right foot. Fractures of the ankle are desc ribed in the report of the right ankle on the same day. Mian Restrepo MD on March 27, 2017 at 14:27 Board Certified Radiologist. This report was verified electronically.
== END 2017-03-27 15:25 | disposition home or self-care (01) ==
LOC: PHEFT 13:10
DX: S82.831A Other fracture of upper and lower end of right fibula, initial encounter for closed fracture (principal); W10.9XXA Fall (on) (from) unspecified stairs and steps, initial encounter
CPT/HCPCS: 29515; 73610; 73630; 99283; E0113